=== PATIENT | female | born 1955 ===

== ENCOUNTER 2016-06-07 11:50 | Observation (INO) | payer MEDICAID ==
[2016-06-07 11:50] VITALS: BMI 34.0
[2016-06-07] MEDS ORDERED: Sodium Chloride 0.9% 1,000 ML IV STA (12:25)
--- NOTE | 2016-06-07 12:54 | RAD ---
HISTORY: R leg numbness COMPARISON: 03/17/2016 FINDINGS: LUNGS: No active pulmonary disease. PLEURA: No significant pleural effusion identified, no pneumothorax apparent. CARDIOVASCULAR: Normal. OSSEOUS STRUCTURES: No significant abnormalities. VISUALIZED UPPER ABDOMEN: Normal. OTHER FINDINGS: None. IMPRESSION: No active disease.
[2016-06-07 13:15] LABS: BASO % 0.4 % (0.0-2.0); EOS # 0.1 K/uL (0.0-0.7); EOS % 0.5 % (0.0-4.0); HEMATOCRIT 33.5 % (34.0-47.0); LYMPH % 24.2 % (20.0-40.0); MEAN CORPUSCULAR HEMOGLOBIN 31.1 pg (27.0-31.0); MEAN CORPUSCULAR HGB CONC 32.7 g/dL (33.0-37.0); MEAN PLATELET VOLUME 9.6 fl (7.2-11.7); MONO % 8.4 % (0.0-10.0); NEUT # 8.2 K/uL (1.8-7.0); NEUT % 66.5 % (50.0-75.0); NRBC % 0.1 % (0.0-0.0); RED CELL DISTRIBUTION WIDTH 16.9 % (11.5-14.5); WHITE BLOOD COUNT 12.3 K/uL (4.8-10.8)
[2016-06-07 13:22] LABS: BILIRUBIN,TOTAL 0.3 mg/dl (0.2-1.3); CALCIUM 9.1 mg/dL (8.4-10.2); POTASSIUM 3.7 MMOL/L (3.6-5.0)
[2016-06-07 13:31] LABS: PARTIAL THROMBOPLASTIN TIME 24.9 SECONDS (23.3-32.5)
[2016-06-07 13:33] LABS: TROPONIN I 0.081 ng/mL (0.00-0.120)
--- NOTE | 2016-06-07 13:42 | CT ---
PROCEDURE: CT HEAD WITHOUT CONTRAST. HISTORY: R leg numbness x12+hrs COMPARISON: Images from noncontrast head CT performed 08/08/10 TECHNIQUE: Axial computed tomography images were obtained through the head/brain without intravenous contrast. Radiation dose: Total exam DLP = 1165.92 mGy-cm. FINDINGS: HEMORRHAGE: No intracranial hemorrhage. BRAIN: Diffuse atrophy with prominence of the ventricles and sulci noted. No mass effect or edema. Bilateral regions of encephalomalacia re-identified involving frontal, temporal, and parietal lobes.Please note that MRI with diffusion imaging is more sensitive in the detection of acute ischemic event. VENTRICLES: No hydrocephalus. CALVARIUM: Unremarkable. PARANASAL SINUSES: Unremarkable as visualized. No significant inflammatory changes. MASTOID AIR CELLS: Unremarkable as visualized. No inflammatory changes. OTHER FINDINGS: None. IMPRESSION: Bilateral regions of encephalomalacia re-identified involving frontal, temporal, and parietal lobes.
--- NOTE | 2016-06-07 14:19 | US ---
HISTORY: RUQ pain COMPARISON: CT abdomen and pelvis with oral and IV contrast performed 03/17/16, abdominal ultrasound performed 03/07/16 TECHNIQUE: Sonographic evaluation of the abdomen. FINDINGS: LIVER: Measures 15.8 cm in sagittal dimension. Echogenic liver may be seen in setting of hepatic parenchymal disease or fatty infiltration. No focal hepatic mass identified. The main portal vein appears patent with normal directional flow. No intrahepatic bile duct dilatation. GALLBLADDER: No gallstones. No gallbladder wall thickening. Negative sonographic Concepcion's sign as assessed by the fur finisher. COMMON BILE DUCT: Measures 4 mm. PANCREAS: Not well visualized. RIGHT KIDNEY: Measures 9.7 x 4.2 x 4.2 cm. Cortical thinning. No obstructing calculus or hydronephrosis evident. LEFT KIDNEY: Measures 9.3 x 4.4 x 3.8 cm. Cortical thinning. No obstructing calculus or hydronephrosis evident. SPLEEN: The spleen is not identified, by history surgically removed. AORTA: Limited views appear unremarkable. IVC: Limited views appear unremarkable. OTHER FINDINGS: None. IMPRESSION: Mild echogenic liver may be seen in setting of hepatic parenchymal disease or fatty infiltration. Nonvisualization of the spleen. By history, status post splenectomy. Bilateral renal cortical thinning.
--- NOTE | 2016-06-07 15:08 | ED PDOC ---
HPI:STROKE - Time Time: 12:20 - Historian Historian: Patient, Family - Chief Complaint Chief Complaint: Numbness - Onset Date: 06/06/16 Time: 20:00 (approximate) - Timing Timing: Currently Symptomatic - Location Locate right:: Lower extremity - Radiation Radiation: Back - Severity of pain Maximum severity:: Mild - Exacerbated by Exacerbated by:: Nothing - Relieved by Relieved by:: Nothing - TPA Positive for Contraindication: Yes Reason tPA is not being Administered: >4hrs since onset of symptoms, NIHSS <4 - Notes: Notes:: 60yo female hx multiple CVAs, MIs, rheumatoid arthritis, presents c/o right leg numbness since last night, now >12hrs earlier. Denies weakness but states cannot walk due to leg issue, normally uses walker and can ambulate with assistance. Denies headache, chest pain, change in speech/vision or coordination. Denies weakness or numbness to face or arms. States adherence to medications. NIHSS Stroke Scale - Date/Time Evaluation Performed When Was NIHSS Performed: Baseline - How Severe is the Stroke Level of Consciousness: 0=Alert LOC to Questions: 0=Both comments correct LOC to commands: 0=Obeys both correctly Best Gaze: 0=Normal Visual: 0=No visual loss Facial: 0=Normal Motor Arm - Left: 0=No drift Motor Arm - Right: 0=No drift Motor Leg - Left: 0=No drift Motor Leg - Right: 0=No drift Limb Ataxia: 0=Absent Sensory: 1=Mild to moderate loss Best Language: 0=No aphasia Dysarthia: 0=Normal articulation Extinction & Inattention (Neglect): 0=Normal, no object Score: 1 rTPA Inclusion/Exclusion - Refusal of Treatment Patient Refused Treatment: No - Inclusion Criteria for Altepase Patient is 18 years or Older: Yes The Clinical Diagnosis of Ischemic Stroke That is Causing a Potentially Disabling Neurological Deficit: Yes Time of Onset is Well Established to be Less Than 270 Minute Before Treatment Would Begin: No Risk/Benefit Discussed With Patient/Family Member Present: Yes - Warning to TPA With Conditions Following Conditions Weighed Against Anticipated Benefit: Yes Condition: Stroke Serevity Too Mild Past Medical History Reviewed: Historical Data, Nursing Documentation, Vital Signs Vital Signs: Last Vital Signs Temp 97.6 F 06/07/16 12:04 Pulse 94 H 06/07/16 12:50 Resp 19 06/07/16 12:50 BP 99/61 L 06/07/16 12:50 Pulse Ox 96 06/07/16 12:50 - Medical History PMH: Anxiety, Arthritis, Asthma, CAD, CHF, COPD, CVA (x3), Depression, Deep Vein Thrombosis, HTN, Hypercholesterolemia, Osteoporosis, Peripheral Edema, Rheumatoid Arthritis, Seizures, Sleep Apnea (CPAP at 4), TIA Denies: HIV, Chronic Kidney Disease - Surgical History Surgical History: Coronary Stent, (x2) - Family History Family History: States: Unknown Family Hx - Living Arrangements Living Arrangements: With Family - Social History Current smoker - smoking cessation education provided: No Alcohol: None - Home Medications Home Medications: Ambulatory Orders Medication Instructions Recorded Folic Acid 1 mg PO DAILY #0 tab 07/19/15 Hydroxychloroquine Sulfate 200 mg PO BID #0 tablet 07/19/15 [Plaquenil] Losartan Potassium 25 mg PO DAILY #0 tablet 07/19/15 metOLazone [Zaroxolyn] 2.5 mg PO DAILY #0 tab 07/19/15 Atorvastatin [Lipitor] 10 mg PO HS 12/08/15 DULoxetine [Cymbalta] 30 mg PO DAILY 12/08/15 Escitalopram [Lexapro] 15 mg PO HS 12/08/15 predniSONE [predniSONE Tab] 5 mg PO DAILY 12/08/15 rOPINIRole [Requip] 1 mg PO HS 12/08/15 traZODone [Desyrel] 50 mg PO HS 12/08/15 Famotidine [Pepcid] 20 mg PO BID #20 tab 12/24/15 Albuterol 0.042% [Albuterol 0.042% 3 ml IH Q6H PRN 02/08/16 Inhal Lotus (1.25mg/3ml) UD] Aspirin [Ecotrin] 81 mg PO DAILY 02/08/16 Mirtazapine [Remeron] 30 mg PO HS 02/08/16 Ondansetron [Zofran Tab] 8 mg PO TID PRN 02/08/16 Atenolol [Tenormin] 25 mg PO DAILY tab 03/15/16 Simethicone [Mylicon Chew Tab] 80 mg PO TID chew 03/15/16 amLODIPine [Norvasc] 5 mg PO DAILY tab 03/15/16 ALPRAZolam [Xanax] 0.25 mg PO HS 03/17/16 Acetaminophen with Codeine 1 tab PO Q6H PRN 03/17/16 [Tylenol with Codeine #3 Tablet] Albuterol HFA [Ventolin HFA 90 2 puff IH Q4H PRN 03/17/16 mcg/actuation (8 g)] Ketotifen Fumarate [Zaditor] 1 drop BOTHEYES Q12H PRN 03/17/16 Lidocaine 5% [Lidoderm] 1 ea TD DAILY patch 03/21/16 - Allergies Allergies/Adverse Reactions: Allergies Allergy/AdvReac Type Severity Reaction Status Date / Time No Known Allergies Allergy Verified 03/17/16 12:50 Review of Systems ROS Statement: Except As Marked, All Systems Reviewed And Found Negative Constitutional: Negative for: Fever, Chills Cardiovascular: Negative for: Chest Pain, Palpitations Respiratory: Negative for: Cough, Shortness of Breath Gastrointestinal: Positive for: Nausea, Vomiting, Abdominal Pain Genitourinary Female: Negative for: Dysuria, Frequency Musculoskeletal: Negative for: Neck Pain, Shoulder Pain Skin: Negative for: Rash, Lesions, Jaundice Neurological: Positive for: Weakness, Numbness, Dizziness. Negative for: Confusion, Seizures, Headache Physical Exam - Reviewed Nursing Documentation Reviewed: Yes Vital Signs Reviewed: Yes - Physical Exam Appears: Positive for: Well, Non-toxic, No Acute Distress Head Exam: Positive for: ATRAUMATIC, NORMAL INSPECTION, NORMOCEPHALIC Skin: Positive for: Normal Color, Warm, DRY Eye Exam: Positive for: EOMI, Normal appearance, PERRL ENT: Positive for: Normal ENT Inspection Neck: Positive for: Normal, Painless ROM Cardiovascular/Chest: Positive for: Regular Rate, Rhythm Respiratory: Positive for: Normal Breath Sounds. Negative for: Wheezing, Respiratory Distress Gastrointestinal/Abdominal: Positive for: Bowel Sounds, Soft, Tenderness (mild epigastric tenderness). Negative for: Guarding, Rebound Back: Positive for: Normal Inspection Extremity: Positive for: Normal ROM Neurologic/Psych: Positive for: Alert, Oriented, Motor/Sensory Deficits (+R leg objective loss sensation; +5/5 motor all ext but slow\), Cerebellar Tests ( intact but slow), Gait (unable to assess due to deficit). Negative for: Facial Droop - Laboratory Results Result Diagrams: 06/07/16 12:50 03/15/17 12:50 - ECG O2 Sat by Pulse Oximetry: 96 Medical Decision Making Medical Decision Making: Not code stroke candidate due to time elapsed of symptoms. CT brain obtained. Labs reviewed.
--- NOTE | 2016-06-07 16:26 | CP.PCM.HP ---
History of Present Illness - History of Present Illness History of Present Illness: CC: Numbness L leg, sensation deficit HPI: This is a 60 year old female with multiple medical problems, hx respiratory insufficiency 2/2 COPD, OLIVIA, severe PAH with connective tissue dz, SLE, RA, s/p splenectomy with chronic thrombocytopenia, hx CVA, CAD, presents today with a 12 hour history of what patient describes as numbness, however upon further evaluation, is moderate constant loss of sensation in the L leg, no associated with any symtpoms, and not made better or worse by any factors. Patient was seen by patient's neurologist Dr. Grier in ER, discussed, consult appreciated and followed. Patient will get MRI and monitored overnight on observation for any worsening of symptoms. vitals also stable. Will monitor on telemetry. ROS: per HPI, all other systems reviewed and negative by me PMD: Dr. 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, HTN, Sleep apnea using CPAP , asthmaCOPD on home oxygen (not using), dyslipidemia rheumatoid arthritis, SLE, osteoporosis, thrombocytopenia Medications; see med rec Surgeries ; Carpal tunnel surgery, C- sections x 2, bunyon removal,splecectomy Family history ; Mother had HTN, DM and CABG Father had CVA HTN and DM Social history ; Lives in [place] with grandchildren, does not smoke , does not drink , does not use any alcohol, used to work in leather factory EXAM: Vitals stable and reviewed GEN: WDWN, alert, cooperative HEENT: NCAT, PERRL, EOMI Neck: supple, no lymphadenopathy CARDIO: +S1S2, RRR, NO M/R/G LUNG: CTAB, NO W/R/R ABD: soft, NT, ND, no masses, no HSM EXT: no edema, pedal pulses Neuro: AAOx3, Strength equal, bilateral UE/LE, sensation diminished L LE Psych: normal mood, normal affect LABS as below and reviewed 06/07/16 12:50 06/07/16 12:50 06/07/16 12:25 Sodium Chloride 0.9% 1,000 ml IV 100 mls/hr 06/07/16 16:28 Albuterol 0.042% [Albuterol 0.042% Inhal Lotus (1.25mg/3ml) UD] DOSE mg IH Q6H PRN Diclofenac Sodium [Voltaren] 1 appl TOP TID PRN Ketotifen Fumarate [Zaditor] 1 drop BOTHEYES Q12H PRN 06/07/16 17:00 Diclofenac Sodium [Voltaren] 75 mg PO BID Hydroxychloroquine Sulfate [Plaquenil] 200 mg PO BID 06/07/16 22:00 Atorvastatin [Lipitor] 10 mg PO HS Escitalopram [Lexapro] 15 mg PO HS Mirtazapine [Remeron] 30 mg PO HS 06/08/16 09:00 Aspirin [Ecotrin] 81 mg PO DAILY Clopidogrel [Plavix] 75 mg PO DAILY Folic Acid 1 mg PO DAILY Leflunomide [Arava] 20 mg PO DAILY Losartan [Cozaar] 25 mg PO DAILY Mesalamine [Apriso] 4 cap PO DAILY Pantoprazole [Protonix EC Tab] 40 mg PO DAILY amLODIPine [Norvasc] 5 mg PO DAILY 06/12/16 16:28 Risedronate Sodium [Actonel] 35 mg PO MO RADS CT Head: Bilateral regions of encephalomalacia re-identified involving frontal, temporal, and parietal lobes. Abd US: mild echogenic liver may be seen in setting of hepatic parenchymal disease or fatty infiltration. Nonvisualization of the spleen, By history s/p splenectomy. Bilateral renal cortical thickening. CXR no active disease ASSESSMENT AND PLAN: This is a 60 year old female with multiple medical problems, hx respiratory insufficiency 2/2 COPD, OLIVIA, severe PAH with connective tissue dz, SLE, RA, s/p splenectomy with chronic thrombocytopenia, hx CVA, CAD, recently discharged 2 days ago after being admitted for respiratory insufficiency and enterocolitis. Colonoscopy 03/13/16 showed ulcers, biopsies showed viral inclusions, as well as diverticulosis. Patient was discharged to [facility], and this morning had 3 large BRBPR, which she stated filled the whole toilet. Pt denies abdominal pain, nausea, vomiting, complains of some diarrhea. She states she feels weak and slightly lightheaded. GI consulted in ER, H/H stable, vitals also stable. New Numbness in L Leg, sensation deficit Neurology consult with Dr. Grier, patient's neurologist discussed patient MRI, eval for acute ischemic event if no event, may discharge patient home and follow up as an outpatient Severe PAH with connective tissue disease CAD, Hx CVA stable cont amlodipine, cozaar, lipitor, ASA, plavix Depression, Anxiety stable continue lexapro, remeron Thrombocytopenia s/p Splenectomy RA Sees Dr. Chávez Hydroxychloroquine Sulfate [Plaquenil] 200 mg PO BID Folic Acid 1 mg PO DAILY Leflunomide [Arava] 20 mg PO DAILY Mesalamine [Apriso] 4 cap PO DAILY Risedronate Sodium [Actonel] 35 mg PO MO Anemia chronic Present on Admission - Present on Admission Any Indicators Present on Admission: No Past Patient History - Infectious Disease Hx of Infectious Diseases: None - Tetanus Immunizations Tetanus Immunization: Unknown - Past Medical History & Family History Past Medical History?: Yes - Past Social History Alcohol: None - CARDIAC Hx Congestive Heart Failure: Yes Hx Hypercholesterolemia: Yes Hx Hypertension: Yes Hx Peripheral Edema: Yes - PULMONARY Hx Asthma: Yes Hx Chronic Obstructive Pulmonary Disease (COPD): Yes Hx Sleep Apnea: Yes (CPAP at 4) - NEUROLOGICAL Hx Seizures: Yes Hx Transient Ischemic Attacks (TIA): Yes - HEENT Hx HEENT Problems: No - RENAL Hx Chronic Kidney Disease: No - ENDOCRINE/METABOLIC Hx Endocrine Disorders: No Hx Systemic Lupus Erythematosus: Yes - HEMATOLOGICAL/ONCOLOGICAL Hx Human Immunodeficiency Virus (HIV): No - INTEGUMENTARY Hx Dermatological Problems: No - MUSCULOSKELETAL/RHEUMATOLOGICAL Hx Arthritis: Yes Hx Osteoporosis: Yes Hx Rheumatoid Arthritis: Yes - GASTROINTESTINAL Hx Gastrointestinal Disorders: Yes Hx Ulcer: Yes - GENITOURINARY/GYNECOLOGICAL Hx Genitourinary Disorders: Yes Hx Incontinence: Yes - PSYCHIATRIC Hx Anxiety: Yes Hx Depression: Yes - SURGICAL HISTORY Hx Coronary Stent: Yes - ANESTHESIA Hx Anesthesia: Yes Hx Anesthesia Reactions: No Hx Malignant Hyperthermia: No Meds Allergies/Adverse Reactions: Allergies Allergy/AdvReac Type Severity Reaction Status Date / Time No Known Allergies Allergy Verified 03/17/16 12:50 Results - Vital Signs Recent Vital Signs: Last Vital Signs Temp 97.6 F 06/07/16 12:04 Pulse 94 H 06/07/16 12:50 Resp 19 06/07/16 12:50 BP 99/61 L 06/07/16 12:50 Pulse Ox 96 06/07/16 15:10 - Labs Result Diagrams: 06/07/16 12:50 06/07/16 12:50
[2016-06-07] MEDS ORDERED: KETOTIFEN FUMARATE BOTHEYES PRN (16:28)
[2016-06-07] MEDS ORDERED: Albuterol 0.042% Inhal Sol (1.25 mg/3 mL) UD IH PRN (16:28)
[2016-06-07] MEDS ORDERED: Patient's Own Med (Diclofenac Sodium [Voltaren] 1 APPL) TOP PRN (16:28)
--- NOTE | 2016-06-07 17:09 | CON ---
DATE: 06/07/2016 REASON FOR CONSULTATION: Possible stroke. CHIEF COMPLAINT: The patient woke up with right leg weakness. From neurological point of view, I wa s called in to evaluate her for further management. HISTORY OF PRESENT ILLNESS: The patient is a 60-year-old right-handed female who is known t o me for many years, been under my treatment for her lumbosacral stenosis, peripheral neuropathy, TIA and sleep apnea, presenting with woke up with right leg weakness and heavy, inability to walk straig ht. The symptoms were persistent and that made her decide to come to the hospital for further evalua tion. PAST MEDICAL HISTORY: Gastritis, asthma, depression, anxiety, electrolyte imbalance, renal insuffici ency, thrombocytopenia, rheumatoid arthritis, pulmonary hypertension, stroke. ALLERGIES: No known allergies. MEDICATIONS: Multiple medications. At this time, she does not bring any medications with her. PHYSICAL EXAMINATION: VITAL SIGNS: Blood pressure 91/51, mean arterial pressure 64, respiratory rate 16, temperature afebr ile. NECK: Supple. No carotid bruit. HEART: Sounds regular. CHEST: Fair air entry. EXTREMITIES: No edema in legs. NEUROLOGIC EXAMINATION: MENTAL STATUS: She is awake, alert, oriented to person, place, and time. Speech is clear. Naming, repetition, fluency, comprehension all within normal. CRANIAL NERVE: Visual field intact. Pupils react to light. Extraocular movement normal. No nystag mus, no facial sensory deficit, no facial asymmetry. Hearing is normal. Tongue is midline. Good ga g. MOTOR: On outstretched hand with eyes closed, no drift noted. Power is symmetric on either side. L ower extremities: She was able to lift both lower extremities against gravity. DEEP TENDON REFLEXES: Absent. Plantars are downgoing. COORDINATION: Mild [id number] dysmetria noted. CONCLUSION: Upon reviewing her history and neurological examination, the patient is presenting with woke up with with right leg weakness, probably secondary to possible left anterior cerebral artery i schemic process considering her significant risk factors of hypertension, obesity, collagen vascular disease and previous transient ischemic attack with obstructive sleep apnea. WORKUP: CT of the head reported as negative for a bleed except significant atrophy. BLOOD WORKUP: WBC 12.3, kpnhrbdfco05.9, hematocrit 33.5, platelet 219. PT 10.3, INR 0.99, PTT 24.9. Sodium 144, potassium 3.7, chloride 100, bicarbonate 32, BUN 33, creatinine 1.6. Triglyceride 200, cholesterol 186, LDL 69, HDL 52. RECOMMENDATIONS: 1. Continue telemetry. 2. MRI of the brain to rule out any acute ischemic process. If no structural cause for her leg weak ness, the patient can be discharged tomorrow and she can follow up with me as an outpatient. Cresencio Grier MD cc: [id number] TT: 06/07/2016 17:09:23 Confirmation # [id number] Dictation # [id number] tn
[2016-06-08 05:16] LABS: RBC URINE 5 /hpf (0-3); URINE BACTERIA RARE (<OCC); URINE BILIRUBIN NEGATIVE (NEGATIVE); URINE BLOOD NEGATIVE (NEGATIVE); URINE COLOR YELLOW (YELLOW); URINE GLUCOSE (UA) NEG (Normal); URINE KETONE NEGATIVE (NEGATIVE); URINE LEUKOCYTE ESTERASE TRACE Leu/uL (Negative); URINE PROTEIN NEGATIVE (NEGATIVE); URINE UROBILINOGEN 0.2-1.0 mg/dL (0.2-1.0); WBC URINE 1 /hpf (0-5)
[2016-06-08 07:02] LABS: HEMATOCRIT 31.2 % (34.0-47.0); MEAN CELL VOLUME 97.7 fl (81.0-99.0); MEAN CORPUSCULAR HGB CONC 31.7 g/dL (33.0-37.0); RED CELL DISTRIBUTION WIDTH 16.9 % (11.5-14.5); WHITE BLOOD COUNT 11.8 K/uL (4.8-10.8)
[2016-06-08 07:56] VITALS: O2SAT 98
[2016-06-08 08:14] LABS: BLOOD UREA NITROGEN 25 mg/dl (7-17); CALCIUM 8.2 mg/dL (8.4-10.2); CARBON DIOXIDE 28 mmol/L (22-30); CHLORIDE 103 mmol/L (98-107); GFR AFRICAN-AMERICAN > 60; GLUCOSE,RANDOM 84 mg/dL (65-105); POTASSIUM 3.4 MMOL/L (3.6-5.0); SODIUM 143 mmol/l (132-148)
[2016-06-08] MEDS ORDERED: Pantoprazole 40 mg EC Tab PO SCH (09:00)
[2016-06-08] MEDS ORDERED: Enoxaparin 40 mg Syringe SC SCH (09:00)
[2016-06-08] MEDS ORDERED: MESALAMINE PO SCH (09:00)
[2016-06-08] MEDS ORDERED: Potassium Chloride 20 mEq ER Tab PO ONE (09:40)
--- NOTE | 2016-06-08 09:40 | MRI ---
PROCEDURE: MRI BRAIN WITHOUT CONTRAST HISTORY: STROKE COMPARISON: Noncontrast head CT from 06/07/2016 TECHNIQUE: Multiplanar, multisequence MR images of the brain were obtained without intravenous contrast enhancement. FINDINGS: HEMORRHAGE: None DWI: There is focal restricted diffusion in the left paramedian frontal cortex. BRAIN PARENCHYMA: There is cystic encephalomalacia and gliosis in the right posterior frontal lobe, right posterior parietal lobe, left paramedian posterior frontal lobe, and left parietal and posterior temporal lobes. There are severe chronic microangiopathic changes. VENTRICLES: There is mild age-related global parenchymal volume loss and proportionate enlargement of the ventricles and cortical sulci. CRANIUM: There is normal bone marrow signal pattern. ORBITS: Within normal limits. PARANASAL SINUSES/MASTOIDS: There are trace mastoid effusions. There is mild mucosal thickening in the paranasal sinuses. VASCULAR SYSTEM: There are normal signal voids in the larger intracranial arteries. OTHER FINDINGS: None. IMPRESSION: 1. Small acute cortical infarction in the left paramedian frontal lobe. 2. Multifocal cystic encephalomalacia and gliosis in bilateral frontal and parietal lobes and left posterior temporal lobe, sequela of remote TALAT and MCA territory infarctions. 3. Severe chronic microangiopathic changes and mild age-related global parenchymal volume loss. A preliminary report was provided by [facility] services.
--- NOTE | 2016-06-08 10:56 | CP.PCM.DIS ---
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 Status: Chronic (6) Rheumatoid arthritis Status: Chronic (7) Acute CVA (cerebrovascular accident) Status: Acute Hospital Course - Lab Results Lab Results: Most Recent Lab Values WBC 11.8 K/uL (4.8-10.8) H 06/08/16 05:55 RBC 3.20 Mil/uL (3.80-5.20) L 06/08/16 05:55 Hgb 9.9 g/dL (12.0-16.0) L 06/08/16 05:55 Hct 31.2 % (34.0-47.0) L 06/08/16 05:55 MCV 97.7 fl (81.0-99.0) D 06/08/16 05:55 MCH 31.0 pg (27.0-31.0) 06/08/16 05:55 MCHC 31.7 g/dL (33.0-37.0) L 06/08/16 05:55 RDW 16.9 % (11.5-14.5) H 06/08/16 05:55 Plt Count 183 K/uL (130-400) 06/08/16 05:55 MPV 9.6 fl (7.2-11.7) 06/07/16 12:50 Neut % (Auto) 66.5 % (50.0-75.0) 06/07/16 12:50 Lymph % (Auto) 24.2 % (20.0-40.0) 06/07/16 12:50 [place] % (Auto) 8.4 % (0.0-10.0) 06/07/16 12:50 Eos % (Auto) 0.5 % (0.0-4.0) 06/07/16 12:50 Baso % (Auto) 0.4 % (0.0-2.0) 06/07/16 12:50 Neut # 8.2 K/uL (1.8-7.0) H 06/07/16 12:50 Lymph # 3.0 K/uL (1.0-4.3) 06/07/16 12:50 Kidder # 1.0 K/uL (0.0-0.8) H 06/07/16 12:50 Eos # 0.1 K/uL (0.0-0.7) 06/07/16 12:50 Baso # 0.0 K/uL (0.0-0.2) 06/07/16 12:50 PT 10.3 SECONDS (9.6-11.2) 06/07/16 12:50 INR 0.99 (0.92-1.08) 06/07/16 12:50 APTT 24.9 SECONDS (23.3-32.5) 06/07/16 12:50 Sodium 143 mmol/l (132-148) 06/08/16 05:55 Potassium 3.4 MMOL/L (3.6-5.0) L 06/08/16 05:55 Chloride 103 mmol/L (98-107) 06/08/16 05:55 Carbon Dioxide 28 mmol/L (22-30) 06/08/16 05:55 Anion Gap 15 (10-20) 06/08/16 05:55 BUN 25 mg/dl (7-17) H 06/08/16 05:55 Creatinine 1.1 mg/dL (0.7-1.2) 06/08/16 05:55 Est GFR ( Amer) > 60 06/08/16 05:55 Est GFR (Non-Af Amer) 50 06/08/16 05:55 POC Glucose (mg/dL) 82 mg/dL (65-110) 06/08/16 05:26 Random Glucose 84 mg/dL (65-105) 06/08/16 05:55 Hemoglobin A1c 5.7 % (4.2-6.5) 06/07/16 12:50 Calcium 8.2 mg/dL (8.4-10.2) L 06/08/16 05:55 Total Bilirubin 0.3 mg/dl (0.2-1.3) 06/07/16 12:50 AST 31 U/L (14-36) 06/07/16 12:50 ALT 26 U/L (9-52) 06/07/16 12:50 Alkaline Phosphatase 97 U/L (38-126) 06/07/16 12:50 Troponin I 0.0810 ng/mL (0.00-0.120) 06/07/16 12:50 Total Protein 7.0 G/DL (6.3-8.2) 06/07/16 12:50 Albumin 3.5 g/dL (3.5-5.0) D 06/07/16 12:50 Globulin 3.5 gm/dL (2.2-3.9) 06/07/16 12:50 Albumin/Globulin Ratio 1.0 (1.0-2.1) 06/07/16 12:50 Triglycerides 200 mg/DL (0-149) H 06/07/16 12:50 Cholesterol 186 mg/dL (0-199) 06/07/16 12:50 LDL Cholesterol Direct 69 mg/dL (0-129) 06/07/16 12:50 HDL Cholesterol 52 MG/DL (30-70) 06/07/16 12:50 Urine Color Yellow (YELLOW) 06/08/16 04:30 Urine Clarity Clear (Clear) 06/08/16 04:30 Urine pH 5.0 (5.0-8.0) 06/08/16 04:30 Ur Specific [place] 1.012 (1.003-1.030) 06/08/16 04:30 Urine Protein Negative mg/dL (NEGATIVE) 06/08/16 04:30 Urine Glucose (UA) Neg mg/dL (Normal) 06/08/16 04:30 Urine Ketones Negative mg/dL (NEGATIVE) 06/08/16 04:30 Urine Blood Negative (NEGATIVE) 06/08/16 04:30 Urine Nitrate Negative (NEGATIVE) 06/08/16 04:30 Urine Bilirubin Negative (NEGATIVE) 06/08/16 04:30 Urine Urobilinogen 0.2-1.0 mg/dL (0.2-1.0) 06/08/16 04:30 Ur Leukocyte Esterase Trace Marcelo/uL (Negative) 06/08/16 04:30 Urine RBC (Auto) 5 /hpf (0-3) H 06/08/16 04:30 Urine Microscopic WBC 1 /hpf (0-5) 06/08/16 04:30 Ur Squamous Epith Cells 2 /hpf (0-5) 06/08/16 04:30 Urine Bacteria Rare (<OCC) 06/08/16 04:30 Hyaline Casts 3-5 /hpf (0-2) H 06/08/16 04:30 Blood Type B POSITIVE 06/07/16 12:50 Antibody Screen Negative 06/07/16 12:50 BBK History Checked Patient has bt 06/07/16 12:50 - Hospital Course Hospital Course: 60 year old female with multiple medical problems, hx respiratory insufficiency 2/2 COPD, OLIVIA, severe PAH with connective tissue dz, SLE, RA, s/p splenectomy with chronic thrombocytopenia, hx CVA, CAD, presents today with a 12 hour history of what patient describes as numbness, however upon further evaluation, is moderate constant loss of sensation in the L leg, no associated with any symtpoms, and not made better or worse by any factors. Patient was seen by patient's neurologist Dr. Grier in ER, discussed, consult appreciated and followed. Patient will get MRI and monitored overnight on observation for any worsening of symptoms. vitals also stable. Will monitor on telemetry. MRI BRAIN : SMALL ACUTE CORTICAL INFARCTION IN THE L PARAMEDIAN FRONTAL LOBE. MULTIFOCAL CYSTIC ENCEPHALOMALACIA AND GLIOSIS IN BILATERAL FRONTAL AND PARIETAL LOBES AND LEFT POSTERIOR TEMPORAL LOBE, SEQUELA OF REMOTE TALAT AND MCA TERRITORY INFARCTIONS. SEVERE CHRONIC MICROANGIOPATHIC CHANGES AND MILD AGE RELATED GLOBAL PARENCHYMAL VOLUME LOSS. Pt was seen by PT and OT, ambulating well, recommendation is to be discharged home. Discussed with Dr. Grier, patient stable to be discharged home with home medications. Pt is on ASA and Plavix, and statin for CVA. Follow up with PCP and Neurology in one week. ROS: per HPI, all other systems reviewed and negative by me PMD: Dr. 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, HTN, Sleep apnea using CPAP , asthmaCOPD on home oxygen (not using), dyslipidemia rheumatoid arthritis, SLE, osteoporosis, thrombocytopenia Medications; see med rec Surgeries ; Carpal tunnel surgery, C- sections x 2, bunyon removal,splecectomy Family history ; Mother had HTN, DM and CABG Father had CVA HTN and DM Social history ; Lives in [place] with grandchildren, does not smoke , does not drink , does not use any alcohol, used to work in [employer] [place] Head: Bilateral regions of encephalomalacia re-identified involving frontal, temporal, and parietal lobes. Abd US: mild echogenic liver may be seen in setting of hepatic parenchymal disease or fatty infiltration. Nonvisualization of the spleen, By history s/p splenectomy. Bilateral renal cortical thickening. CXR no active disease MRI BRAIN : SMALL ACUTE CORTICAL INFARCTION IN THE L PARAMEDIAN FRONTAL LOBE. MULTIFOCAL CYSTIC ENCEPHALOMALACIA AND GLIOSIS IN BILATERAL FRONTAL AND PARIETAL LOBES AND LEFT POSTERIOR TEMPORAL LOBE, SEQUELA OF REMOTE TALAT AND MCA TERRITORY INFARCTIONS. SEVERE CHRONIC MICROANGIOPATHIC CHANGES AND MILD AGE RELATED GLOBAL PARENCHYMAL VOLUME LOSS. ASSESSMENT AND PLAN: This is a 60 year old female with multiple medical problems, hx respiratory insufficiency 2/2 COPD, OLIVIA, severe PAH with connective tissue dz, SLE, RA, s/p splenectomy with chronic thrombocytopenia, hx CVA, CAD, recently discharged 2 days ago after being admitted for respiratory insufficiency and enterocolitis. Colonoscopy 03/13/16 showed ulcers, biopsies showed viral inclusions, as well as diverticulosis. Patient was discharged to [facility], and this morning had 3 large BRBPR, which she stated filled the whole toilet. Pt denies abdominal pain, nausea, vomiting, complains of some diarrhea. She states she feels weak and slightly lightheaded. GI consulted in ER, H/H stable, vitals also stable. New Numbness in L Leg, sensation deficit Neurology consult with Dr. Grier, patient's neurologist discussed patient MRI, eval for acute ischemic event if no event, may discharge patient home and follow up as an outpatient Severe PAH with connective tissue disease CAD, Hx CVA stable cont amlodipine, cozaar, lipitor, ASA, plavix Depression, Anxiety stable continue lexapro, remeron Thrombocytopenia s/p Splenectomy RA Sees Dr. Chávez Hydroxychloroquine Sulfate [Plaquenil] 200 mg PO BID Folic Acid 1 mg PO DAILY Leflunomide [Arava] 20 mg PO DAILY Mesalamine [Apriso] 4 cap PO DAILY Risedronate Sodium [Actonel] 35 mg PO MO Anemia chronic Discharge Exam - Head Exam Head Exam: ATRAUMATIC, NORMAL INSPECTION, NORMOCEPHALIC - Eye Exam Eye Exam: EOMI, Normal appearance, PERRL Pupil Exam: NORMAL ACCOMODATION - ENT Exam ENT Exam: Mucous Membranes Moist, Normal Oropharynx - Neck Exam Neck exam: Full Rom, Normal Inspection - Respiratory Exam Respiratory Exam: Clear to PA & Lateral, NORMAL BREATHING PATTERN, UNREMARKABLE - Cardiovascular Exam Cardiovascular Exam: RRR, +S1, +S2. absent: Gallop, Rubs - GI/Abdominal Exam GI & Abdominal Exam: Normal Bowel Sounds, Soft. absent: Mass, Organomegaly, Tenderness - Extremities Exam Extremities exam: normal capillary refill, pedal pulses present - Back Exam Back exam: absent: CVA tenderness (L), CVA tenderness (R) - Neurological Exam Neurological exam: Alert, Oriented x3 - Psychiatric Exam Psychiatric exam: Normal Affect, Normal Mood - Skin Skin Exam: Dry, Warm Discharge Plan - Discharge Medications Prescriptions: Risedronate Sodium [Actonel] 35 mg PO MO #30 tablet Albuterol 0.042% [Albuterol 0.042% Inhal Lotus (1.25mg/3ml) UD] 3 ml IH Q6H PRN # 20 neb PRN Reason: Shortness Of Breath Mesalamine [Apriso] 4 cap PO DAILY #30 cap.er.24h Leflunomide [Arava] 20 mg PO DAILY #30 tablet Losartan [Cozaar] 25 mg PO DAILY #30 tab Aspirin [Ecotrin] 81 mg PO DAILY #30 tabec Folic Acid 1 mg PO DAILY #30 tab Escitalopram [Lexapro] 15 mg PO HS #30 tab Atorvastatin [Lipitor] 10 mg PO HS #30 tab amLODIPine [Norvasc] 5 mg PO DAILY #30 tab Hydroxychloroquine Sulfate [Plaquenil] 200 mg PO BID #60 tablet Clopidogrel [Plavix] 75 mg PO DAILY #30 tab Pantoprazole Sodium [Protonix] 40 mg PO DAILY #30 tablet. Mirtazapine [Remeron] 30 mg PO HS #30 tab Diclofenac Sodium [Voltaren] 1 appl TOP TID PRN #100 gel..gram. PRN Reason: Pain, Moderate (4-7) Diclofenac Sodium [Voltaren] 75 mg PO BID #60 ect Ketotifen Fumarate [Zaditor] 1 drop BOTHEYES Q12H PRN 30 Days PRN Reason: itchy eyes - Follow Up Plan Condition: FAIR Disposition: HOME/ ROUTINE Instructions: Ischemic Stroke (DC), Stroke (DC) Additional Instructions: Continue with medications as ordered. Follow up with primary urgent care physician assistant within one week. Follow up with Dr. Marvel one week. Return to ER if condition worsens. Resume low fat low chol, diet. Activity as tolerated. Home exercises as explained.
[2016-06-08 11:51] VITALS: BP 106/73; PULSE 88; RESP 20; TEMP 97.9
--- NOTE | 2016-06-08 18:59 | CARD ---
APPROVED REPORT EKG Measurement Heart [id number] [id number] <Conclusion> Normal sinus rhythm Moderate voltage criteria for LVH, may be normal variant Nonspecific T wave abnormality Abnormal ECG
[2016-06-12] MEDS ORDERED: RISEDRONATE SODIUM 35 MG PO SCH (16:28)
== END 2016-06-08 13:30 | disposition home or self-care (01) ==
LOC: H.ER 11:50 → H.ERHOLD 15:01 → H.TEL 18:19
PROVIDERS: ADMIT Student in an Organized Health Care Education/Training Program; ATTEND Student in an Organized Health Care Education/Training Program
DX: I67.82 Cerebral ischemia (principal); E07.81 Sick-euthyroid syndrome; I27.2 Other secondary pulmonary hypertension; I50.9 Heart failure, unspecified; E78.5 Hyperlipidemia, unspecified; M06.9 Rheumatoid arthritis, unspecified; D64.9 Anemia, unspecified; D69.6 Thrombocytopenia, unspecified; M32.9 Systemic lupus erythematosus, unspecified; G47.33 Obstructive sleep apnea (adult) (pediatric); F41.9 Anxiety disorder, unspecified; I25.10 Atherosclerotic heart disease of native coronary artery without angina pectoris; J44.9 Chronic obstructive pulmonary disease, unspecified; E78.00 Pure hypercholesterolemia, unspecified; J45.909 Unspecified asthma, uncomplicated; M81.0 Age-related osteoporosis without current pathological fracture; K29.70 Gastritis, unspecified, without bleeding; Z95.5 Presence of coronary angioplasty implant and graft; Z86.73 Personal history of transient ischemic attack (TIA), and cerebral infarction without residual deficits; Z99.81 Dependence on supplemental oxygen; Z79.82 Long term (current) use of aspirin

== ENCOUNTER 2016-06-20 10:48 | Observation (INO) | payer MEDICAID ==
[2016-06-20 10:48] VITALS: BMI 34.0
[2016-06-20] MEDS ORDERED: Sodium Chloride 0.9% 1,000 ML IV STA (11:30)
--- NOTE | 2016-06-20 11:38 | ED PDOC ---
HPI: Abdomen Time Seen by Provider: 06/20/16 11:20 Chief Complaint (Nursing): Abdominal Pain Chief Complaint (Provider): vomiting/diarrhea History Per: Patient, Family (60 y/o female h/o Lupus h/o CVA x 4 with recent d/ c from hospital 06/07 after CVA at that time. 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 Has had 3 days of vomiting/watery diarrhea. Denies any fevers/chills. Denies any chest pain. Has h/o Cxn/splenectomy.) Past Medical History Reviewed: Historical Data, Nursing Documentation, Vital Signs Vital Signs: Last Vital Signs Temp 98.4 F 06/20/16 16:29 Pulse 90 06/20/16 16:29 Resp 18 06/20/16 16:29 BP 101/64 06/20/16 16:29 Pulse Ox 97 06/20/16 16:40 - Medical History PMH: Anxiety, Arthritis, Asthma, CAD, CHF, COPD, CVA (x3), Depression, Deep Vein Thrombosis, HTN, Hypercholesterolemia, Osteoporosis, Peripheral Edema, Rheumatoid Arthritis, Seizures, Sleep Apnea (CPAP at 4), TIA Denies: HIV, Chronic Kidney Disease - Surgical History Surgical History: Coronary Stent, (x2) - Family History Family History: States: Unknown Family Hx - Home Medications Home Medications: Ambulatory Orders Medication Instructions Recorded Losartan Potassium 25 mg PO DAILY #0 tablet 07/19/15 Albuterol HFA [Ventolin HFA 90 2 puff IH Q4H PRN 03/17/16 mcg/actuation (8 g)] Albuterol 0.042% [Albuterol 0.042% 3 ml IH Q6H PRN #20 neb 06/08/16 Inhal Lotus (1.25mg/3ml) UD] Aspirin [Ecotrin] 81 mg PO DAILY #30 tabec 06/08/16 Atorvastatin [Lipitor] 10 mg PO HS #30 tab 06/08/16 Clopidogrel [Plavix] 75 mg PO DAILY #30 tab 06/08/16 Diclofenac Sodium [Voltaren] 1 appl TOP TID PRN #100 gel..gram. 06/08/16 Diclofenac Sodium [Voltaren] 75 mg PO BID #60 ect 06/08/16 Escitalopram [Lexapro] 15 mg PO HS #30 tab 06/08/16 Folic Acid 1 mg PO DAILY #30 tab 06/08/16 Hydroxychloroquine Sulfate 200 mg PO BID #60 tablet 06/08/16 [Plaquenil] Ketotifen Fumarate [Zaditor] 1 drop BOTHEYES Q12H PRN 30 Days 06/08/16 Leflunomide [Arava] 20 mg PO DAILY #30 tablet 06/08/16 Losartan [Cozaar] 25 mg PO DAILY #30 tab 06/08/16 Mesalamine [Apriso] 4 cap PO DAILY #30 cap.er.24h 06/08/16 Mirtazapine [Remeron] 30 mg PO HS #30 tab 06/08/16 Pantoprazole Sodium [Protonix] 40 mg PO DAILY #30 tablet.dr 06/08/16 Risedronate Sodium [Actonel] 35 mg PO MO #30 tablet 06/08/16 amLODIPine [Norvasc] 5 mg PO DAILY #30 tab 06/08/16 - Allergies Allergies/Adverse Reactions: Allergies Allergy/AdvReac Type Severity Reaction Status Date / Time No Known Allergies Allergy Verified 03/17/16 12:50 Review of Systems ROS Statement: Except As Marked, All Systems Reviewed And Found Negative Gastrointestinal: Positive for: Vomiting, Diarrhea Physical Exam - Reviewed Nursing Documentation Reviewed: Yes Vital Signs Reviewed: Yes - Physical Exam Appears: Positive for: Well, Non-toxic, No Acute Distress Head Exam: Positive for: ATRAUMATIC, NORMAL INSPECTION, NORMOCEPHALIC Skin: Positive for: Normal Color, Warm, DRY Eye Exam: Positive for: EOMI, Normal appearance, PERRL ENT: Positive for: Normal ENT Inspection Neck: Positive for: Normal, Painless ROM Cardiovascular/Chest: Positive for: Regular Rate, Rhythm Respiratory: Positive for: CNT, Normal Breath Sounds Gastrointestinal/Abdominal: Positive for: Normal Exam, Bowel Sounds, Soft, Tenderness (epigastric tenderness noted on exam.) Back: Positive for: Normal Inspection Extremity: Positive for: Normal ROM Neurologic/Psych: Positive for: Alert, Oriented - Laboratory Results Result Diagrams: 06/20/16 12:35 06/20/16 12:35 - ECG O2 Sat by Pulse Oximetry: 97 - Progress ED Course And Treament: PEPCID 20 MG IV X 1 DOSE ZOFRAN 4MG IV X 1 DOSE NS 1 LITER 250 ML PER HOUR Creatinine 1.6 today. Will adimt for renal insufficiency/hydration. D/w Dr. Marino for admission. Disposition - Clinical Impression Clinical Impression: Acute renal insufficiency, Dehydration - Patient ED Disposition Is Patient to be Admitted: Yes - Disposition Disposition Time: 14:16 Condition: FAIR - Pt Status Changed To: Hospital Disposition Of: Observation
[2016-06-20 12:50] LABS: BASO % 0.2 % (0.0-2.0); EOS % 0.4 % (0.0-4.0); HEMATOCRIT 34.6 % (34.0-47.0); LYMPH # 1.9 K/uL (1.0-4.3); LYMPH % 17.9 % (20.0-40.0); MEAN CELL VOLUME 95.1 fl (81.0-99.0); MEAN CORPUSCULAR HGB CONC 31.5 g/dL (33.0-37.0); MEAN PLATELET VOLUME 9.4 fl (7.2-11.7); MONO # 0.9 K/uL (0.0-0.8); MONO % 8.2 % (0.0-10.0); NEUT # 7.8 K/uL (1.8-7.0); NEUT % 73.3 % (50.0-75.0); NRBC % 0.5 % (0.0-0.0); RED CELL DISTRIBUTION WIDTH 17.3 % (11.5-14.5); WHITE BLOOD COUNT 10.6 K/uL (4.8-10.8)
[2016-06-20 12:59] LABS: ALB/GLOB RATIO 0.9 (1.0-2.1); BILIRUBIN,TOTAL 0.5 mg/dl (0.2-1.3); CALCIUM 9.3 mg/dL (8.4-10.2); POTASSIUM 4.1 MMOL/L (3.6-5.0); TOTAL PROTEIN 8.3 G/DL (6.3-8.2)
[2016-06-20 13:09] LABS: TROPONIN I 0.078 ng/mL (0.00-0.120)
--- NOTE | 2016-06-20 15:06 | CP.PCM.HP ---
History of Present Illness - History of Present Illness History of Present Illness: 60 yo female with history of SLE, PAH, CVA, CAD (2 stent) and COPD brought in by daughter because of epigastric pain since 3 days ago accompanied with mutiple bouts of vomiting and diarrhea. Denied fever and chills. Also denied chest pain or SOB. Present on Admission - Present on Admission Any Indicators Present on Admission: No History of DVT/PE: No History of Uncontrolled Diabetes: No Urinary Catheter: No Decubitus Ulcer Present: No Review of Systems - Review of Systems All systems: reviewed and no additional remarkable complaints except (aside from those mentioned above, 12 point system review were negative by me) Past Patient History - Infectious Disease Hx of Infectious Diseases: None - Tetanus Immunizations Tetanus Immunization: Unknown - Past Medical History & Family History Past Medical History?: Yes - Past Social History Smoking Status: Never Smoked Chewing Tobacco Use: No Cigar Use: No Alcohol: None Drugs: Denies Home Situation {Lives}: With Family - CARDIAC Hx Heart Attack: Yes Hx Hypercholesterolemia: Yes Hx Hypertension: Yes Hx Peripheral Edema: Yes - PULMONARY Hx Asthma: Yes Hx Chronic Obstructive Pulmonary Disease (COPD): Yes Hx Sleep Apnea: Yes (CPAP at 4) - NEUROLOGICAL Hx Seizures: Yes Hx Transient Ischemic Attacks (TIA): Yes - HEENT Hx HEENT Problems: No - RENAL Hx Chronic Kidney Disease: No - ENDOCRINE/METABOLIC Hx Endocrine Disorders: No Hx Systemic Lupus Erythematosus: Yes - HEMATOLOGICAL/ONCOLOGICAL Hx Human Immunodeficiency Virus (HIV): No - INTEGUMENTARY Hx Dermatological Problems: No - MUSCULOSKELETAL/RHEUMATOLOGICAL Hx Arthritis: Yes Hx Osteoporosis: Yes Hx Rheumatoid Arthritis: Yes - GASTROINTESTINAL Hx Gastrointestinal Disorders: Yes Hx Ulcer: Yes - GENITOURINARY/GYNECOLOGICAL Hx Genitourinary Disorders: Yes Hx Incontinence: Yes - PSYCHIATRIC Hx Anxiety: Yes Hx Depression: Yes - SURGICAL HISTORY Hx Coronary Stent: Yes - ANESTHESIA Hx Anesthesia: Yes Hx Anesthesia Reactions: No Hx Malignant Hyperthermia: No Meds Allergies/Adverse Reactions: Allergies Allergy/AdvReac Type Severity Reaction Status Date / Time No Known Allergies Allergy Verified 03/17/16 12:50 Physical Exam - Constitutional Appears: No Acute Distress - Head Exam Head Exam: ATRAUMATIC - Eye Exam Eye Exam: absent: Scleral icterus - ENT Exam ENT Exam: Mucous Membranes Moist - Neck Exam Neck exam: Negative for: Meningismus - Respiratory Exam Respiratory Exam: absent: Rhonchi, Wheezes, Respiratory Distress - Cardiovascular Exam Cardiovascular Exam: REGULAR RHYTHM, +S1, +S2 - GI/Abdominal Exam GI & Abdominal Exam: Soft. absent: Tenderness - Rectal Exam Rectal Exam: Deferred - Extremities Exam Extremities exam: Negative for: calf tenderness - Back Exam Back exam: absent: tenderness - Psychiatric Exam Psychiatric exam: Flat Affect - Skin Skin Exam: Dry, Intact Results - Vital Signs Recent Vital Signs: Last Vital Signs Temp 97 F L 06/20/16 11:23 Pulse 96 H 06/20/16 11:23 Resp 18 06/20/16 11:23 BP 100/65 06/20/16 11:23 Pulse Ox 97 06/20/16 11:39 - Labs Result Diagrams: 06/20/16 12:35 06/20/16 12:35 Assessment & Plan (1) Gastroenteritis Status: Acute Comment: place on observation in med/surg. keep on NPO. IV hydration with NSS 100cc/hr. Zofran 4mg IV q 4hrs prn for nausea/vomiting. Morphine 2mg IV q 4hrs prn for abdominal pain. 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 Duoneb via nebulizer q 4hrs prn for SOB/wheezing. O2 supplement as needed (3) CAD (coronary artery disease) Status: Chronic Priority: Medium Comment: asymptomatic. Plavix, ASA, Lipitor on hold as patient is NPO (4) COPD (chronic obstructive pulmonary disease) Status: Chronic Comment: Asymptomatic. Duoneb via nebulizer q 4hrs prn for SOB/wheezing (5) Rheumatoid arthritis Status: Chronic Comment: Zarava and Voltaren on hold (6) SLE (systemic lupus erythematosus) Status: Chronic Priority: Medium Comment: Plaquenil on hold (7) DVT prophylaxis Status: Acute Comment: venodyne boots while in bed
--- NOTE | 2016-06-20 15:18 | RAD ---
HISTORY: Vomiting, diarrhea and abdominal pain. COMPARISON: 06/07/2016. FINDINGS: LUNGS: No active pulmonary disease. PLEURA: No significant pleural effusion identified, no pneumothorax apparent. CARDIOVASCULAR: Cardiomegaly. No evidence of acute, significant cardiovascular disease. OSSEOUS STRUCTURES: No significant abnormalities. VISUALIZED UPPER ABDOMEN: Normal. OTHER FINDINGS: None. IMPRESSION: No active disease. No significant interval change compared to the prior examination(s).
[2016-06-20] MEDS ORDERED: Albuterol HFA 90 mcg/actuation (8 g) IH PRN (15:30)
[2016-06-20] MEDS ORDERED: KETOTIFEN FUMARATE BOTHEYES PRN (15:30)
[2016-06-20] MEDS ORDERED: Albuterol 0.042% Inhal Sol (1.25 mg/3 mL) UD IH PRN (15:30)
[2016-06-20 16:40] VITALS: O2SAT 97
[2016-06-20] MEDS: Sodium Chloride 0.9% 1,000 ML IV SCH (17:16)
[2016-06-20 21:01] VITALS: RESP 20
[2016-06-21] MEDS: Sodium Chloride 0.9% 1,000 ML IV SCH (02:06)
[2016-06-21 08:10] LABS: BASO % 0.3 % (0.0-2.0); EOS # 0.2 K/uL (0.0-0.7); EOS % 2.1 % (0.0-4.0); LYMPH % 36.6 % (20.0-40.0); MEAN CELL VOLUME 93.9 fl (81.0-99.0); MEAN CORPUSCULAR HEMOGLOBIN 30.2 pg (27.0-31.0); MEAN CORPUSCULAR HGB CONC 32.2 g/dL (33.0-37.0); MEAN PLATELET VOLUME 9.6 fl (7.2-11.7); MONO # 1.3 K/uL (0.0-0.8); MONO % 16.1 % (0.0-10.0); NEUT # 3.7 K/uL (1.8-7.0); NEUT % 44.9 % (50.0-75.0); NRBC % 0.6 % (0.0-0.0); RED CELL DISTRIBUTION WIDTH 17.1 % (11.5-14.5); WHITE BLOOD COUNT 8.3 K/uL (4.8-10.8)
[2016-06-21 08:15] VITALS: BP 93/59; PULSE 70; TEMP 98.4
[2016-06-21 08:23] LABS: BLOOD UREA NITROGEN 27 mg/dl (7-17); CALCIUM 8.2 mg/dL (8.4-10.2); CARBON DIOXIDE 27 mmol/L (22-30); CHLORIDE 108 mmol/L (98-107); GFR AFRICAN-AMERICAN > 60; GLUCOSE,RANDOM 71 mg/dL (65-105); POTASSIUM 3.5 MMOL/L (3.6-5.0); SODIUM 146 mmol/l (132-148)
--- NOTE | 2016-06-21 10:45 | CP.PCM.CON ---
History of Present Illness - History of Present Illness History of Present Illness: GI Consult: Dr. Navarro Pt is a 60F with PMHx significant for CAD s/p stent x 2, CVA, SLE & COPD who presented to [facility] for epigastric pain and vomiting/diarrhea. Pt states that she was constipated 3 days ago and took an over the counter laxative which caused her to have diarrhea. She also started experiencing burning epigastric pain accompanied by several episodes of vomiting. Pt denies blood is stool or vomitus. She also denies F/C. Currently, pt is resting comfortably in bed and states she feels better compared to yesterday. States she's hungry and would like to eat. Denies further episodes of vomiting/diarrhea. PMHx: as stated above PSHx: x 2, cardiac stents x 2 SocialHx: denies smoking/EtOH Review of Systems - Review of Systems All systems: reviewed and no additional remarkable complaints except (as per HPI ) Past Patient History - Infectious Disease Hx of Infectious Diseases: None - Tetanus Immunizations Tetanus Immunization: Unknown - Past Medical History & Family History Past Medical History?: Yes - Past Social History Smoking Status: Never Smoked - CARDIAC Hx Cardiac Disorders: Yes Hx Congestive Heart Failure: Yes Hx Hypercholesterolemia: Yes Hx Hypertension: Yes Hx Peripheral Edema: Yes - PULMONARY Hx Respiratory Disorders: Yes Hx Asthma: Yes Hx Chronic Obstructive Pulmonary Disease (COPD): Yes Hx Sleep Apnea: Yes - NEUROLOGICAL Hx Neurological Disorder: Yes HX Cerebrovascular Accident: Yes (x3) Hx Seizures: Yes Hx Transient Ischemic Attacks (TIA): Yes - HEENT Hx HEENT Problems: No - RENAL Hx Chronic Kidney Disease: No - ENDOCRINE/METABOLIC Hx Endocrine Disorders: Yes Hx Systemic Lupus Erythematosus: Yes - HEMATOLOGICAL/ONCOLOGICAL Hx Blood Disorders: No - INTEGUMENTARY Hx Dermatological Problems: No - MUSCULOSKELETAL/RHEUMATOLOGICAL Hx Musculoskeletal Disorders: Yes Hx Arthritis: Yes Hx Falls: Yes Hx Osteoporosis: Yes Hx Rheumatoid Arthritis: Yes - GASTROINTESTINAL Hx Gastrointestinal Disorders: Yes Hx Ulcer: Yes - GENITOURINARY/GYNECOLOGICAL Hx Genitourinary Disorders: Yes Hx Incontinence: Yes - PSYCHIATRIC Hx Psychophysiologic Disorder: Yes Hx Anxiety: Yes Hx Depression: Yes Hx Substance Use: No - SURGICAL HISTORY Hx Surgeries: Yes Hx Coronary Stent: Yes (x2) - ANESTHESIA Hx Anesthesia: Yes Hx Anesthesia Reactions: No Hx Malignant Hyperthermia: No Meds Allergies/Adverse Reactions: Allergies Allergy/AdvReac Type Severity Reaction Status Date / Time No Known Allergies Allergy Verified 03/17/16 12:50 - Medications Medications: Current Medications Albuterol (Ventolin Hfa 90 Mcg/Actuation (8 G)) 2 puff IH Q4H PRN PRN Reason: Shortness of Breath Albuterol Sulfate (Albuterol 0.042% Inhal Lotus (1.25mg/3ml) Ud) 1.25 mg IH RQ6 PRN PRN Reason: Shortness of Breath Home Med (Ketotifen Fumarate [Zaditor]) 1 drop BOTHEYES Q12H PRN PRN Reason: itchy eyes Sodium Chloride (Sodium Chloride 0.9%) 1,000 mls @ 100 mls/hr IV .Q10H [facility] Last Admin: 06/21/16 02:06 Dose: 100 mls/hr Morphine Sulfate (Morphine) 2 mg IVP Q4 PRN PRN Reason: Pain, moderate (4-7) Ondansetron HCl (Zofran Inj) 4 mg IVP Q4 [facility] Last Admin: 06/21/16 08:35 Dose: Not Given Pantoprazole Sodium (Protonix Inj) 40 mg IVP BID [facility] Physical Exam - Constitutional Appears: Well, No Acute Distress - Head Exam Head Exam: ATRAUMATIC, NORMOCEPHALIC - Eye Exam Eye Exam: Normal appearance - ENT Exam ENT Exam: Mucous Membranes Moist - Respiratory Exam Respiratory Exam: NORMAL BREATHING PATTERN - Cardiovascular Exam Cardiovascular Exam: RRR - GI/Abdominal Exam GI & Abdominal Exam: Soft, Tenderness (epigastric ). absent: Distended, Guarding, Rebound - Rectal Exam Rectal Exam: absent: Deferred - Extremities Exam Extremities exam: Negative for: tenderness - Neurological Exam Neurological exam: Alert, Oriented x3 - Skin Skin Exam: Dry, Warm Results - Vital Signs Recent Vital Signs: Last Vital Signs Temp 98.4 F 06/21/16 08:14 Pulse 70 06/21/16 08:14 Resp 20 06/21/16 08:14 BP 93/59 L 06/21/16 08:14 Pulse Ox 97 06/21/16 08:14 - Labs Result Diagrams: 06/21/16 07:20 06/21/16 07:20 Labs: Laboratory Results - last 24 hr 06/21/16 07:20 WBC 8.3 RBC 2.98 L Hgb 9.0 L Hct 28.0 L MCV 93.9 MCH 30.2 MCHC 32.2 L RDW 17.1 H Plt Count 271 MPV 9.6 Neut % (Auto) 44.9 L Lymph % (Auto) 36.6 Bennett % (Auto) 16.1 H Eos % (Auto) 2.1 Baso % (Auto) 0.3 Neut # 3.7 Lymph # 3.0 Bennett # 1.3 H Eos # 0.2 Baso # 0.0 Sodium 146 Potassium 3.5 L Chloride 108 H Carbon Dioxide 27 Anion Gap 15 BUN 27 H Creatinine 1.0 Est GFR ( Amer) > 60 Est GFR (Non-Af Amer) 56 Random Glucose 71 Calcium 8.2 L Assessment & Plan - Assessment and Plan (Free Text) Assessment: 60F with epigastric pain, vomiting & diarrhea Plan: - Obtain abdominal X-ray to r/o obstruction - Start liquid diet and advance as tolerated - Protonix BID - Can be DC home later today if tolerating diet - Pt seen and examined with Dr. Melanie Montana, PGY-2
--- NOTE | 2016-06-21 11:47 | CARD ---
APPROVED REPORT EKG Measurement Heart [id number] 130P6 [id number] <Conclusion> Normal sinus rhythm Nonspecific T wave abnormality Prolonged QT Abnormal ECG
--- NOTE | 2016-06-21 13:21 | RAD ---
HISTORY: r/o obstruction COMPARISON: 03/06/2012. FINDINGS: BOWEL: Negative study for obstruction or free air. BONES: Scoliosis, secondary degenerative change at multiple levels. Degenerative changes both hips approximately symmetrical. OTHER FINDINGS: Vertically oriented IVC filter new finding compared to the prior study. IMPRESSION: No significant or acute findings to account for/ related to the clinical presentation.
--- NOTE | 2016-06-21 14:23 | CP.PCM.DIS ---
Provider - Provider Date of Admission: 06/20/16 14:16 Attending physician: Zackary Marino MD Consults: Dr Navarro Time Spent in preparation of Discharge (in minutes): 35 Diagnosis - Discharge Diagnosis (1) Gastroenteritis Status: Acute Comment: asymptomatic and improved after placing on NPO with IV hydration. 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 Status: Chronic Comment: asymptomatic (3) CAD (coronary artery disease) Status: Chronic Priority: Medium Comment: continue Plavix, ASA, Lipitor (4) COPD (chronic obstructive pulmonary disease) Status: Chronic Comment: asymptomatic (5) Rheumatoid arthritis Status: Chronic Comment: resume Zarava and Voltaren (6) SLE (systemic lupus erythematosus) Status: Chronic Priority: Medium Comment: resume Plaquenil (7) DVT prophylaxis Status: Acute Hospital Course - Lab Results Lab Results: Most Recent Lab Values WBC 8.3 K/uL (4.8-10.8) 06/21/16 07:20 RBC 2.98 Mil/uL (3.80-5.20) L 06/21/16 07:20 Hgb 9.0 g/dL (12.0-16.0) L 06/21/16 07:20 Hct 28.0 % (34.0-47.0) L 06/21/16 07:20 MCV 93.9 fl (81.0-99.0) 06/21/16 07:20 MCH 30.2 pg (27.0-31.0) 06/21/16 07:20 MCHC 32.2 g/dL (33.0-37.0) L 06/21/16 07:20 RDW 17.1 % (11.5-14.5) H 06/21/16 07:20 Plt Count 271 K/uL (130-400) 06/21/16 07:20 MPV 9.6 fl (7.2-11.7) 06/21/16 07:20 Neut % (Auto) 44.9 % (50.0-75.0) L 06/21/16 07:20 Lymph % (Auto) 36.6 % (20.0-40.0) 06/21/16 07:20 Imperial % (Auto) 16.1 % (0.0-10.0) H 06/21/16 07:20 Eos % (Auto) 2.1 % (0.0-4.0) 06/21/16 07:20 Baso % (Auto) 0.3 % (0.0-2.0) 06/21/16 07:20 Neut # 3.7 K/uL (1.8-7.0) 06/21/16 07:20 Lymph # 3.0 K/uL (1.0-4.3) 06/21/16 07:20 Imperial # 1.3 K/uL (0.0-0.8) H 06/21/16 07:20 Eos # 0.2 K/uL (0.0-0.7) 06/21/16 07:20 Baso # 0.0 K/uL (0.0-0.2) 06/21/16 07:20 Sodium 146 mmol/l (132-148) 06/21/16 07:20 Potassium 3.5 MMOL/L (3.6-5.0) L 06/21/16 07:20 Chloride 108 mmol/L (98-107) H 06/21/16 07:20 Carbon Dioxide 27 mmol/L (22-30) 06/21/16 07:20 Anion Gap 15 (10-20) 06/21/16 07:20 BUN 27 mg/dl (7-17) H 06/21/16 07:20 Creatinine 1.0 mg/dL (0.7-1.2) 06/21/16 07:20 Est GFR ( Amer) > 60 06/21/16 07:20 Est GFR (Non-Af Amer) 56 06/21/16 07:20 Random Glucose 71 mg/dL (65-105) 06/21/16 07:20 Lactic Acid 1.7 MMOL/L (0.7-2.1) 06/20/16 12:35 Calcium 8.2 mg/dL (8.4-10.2) L 06/21/16 07:20 Total Bilirubin 0.5 mg/dl (0.2-1.3) 06/20/16 12:35 AST 33 U/L (14-36) 06/20/16 12:35 ALT 22 U/L (9-52) 06/20/16 12:35 Alkaline Phosphatase 96 U/L (38-126) 06/20/16 12:35 Troponin I 0.0780 ng/mL (0.00-0.120) 06/20/16 12:35 Total Protein 8.3 G/DL (6.3-8.2) H 06/20/16 12:35 Albumin 4.0 g/dL (3.5-5.0) 06/20/16 12:35 Globulin 4.3 gm/dL (2.2-3.9) H 06/20/16 12:35 Albumin/Globulin Ratio 0.9 (1.0-2.1) L 06/20/16 12:35 Lipase 163 U/L (23-300) 06/20/16 12:35 - Hospital Course Hospital Course: 60 yo female with history of SLE, PAH, CVA, CAD (2 stent) and COPD brought in by daughter because of epigastric pain since 3 days ago accompanied with mutiple bouts of vomiting and diarrhea. Patient was put on NPO with IV hydration. Her condition improved and was able to tolerate food intake the next day. Patient was discharged in stable condition. Discharge Exam - Head Exam Head Exam: ATRAUMATIC, NORMOCEPHALIC - Eye Exam Eye Exam: absent: Scleral icterus - ENT Exam ENT Exam: Mucous Membranes Moist - Respiratory Exam Respiratory Exam: absent: Wheezes, Respiratory Distress - Cardiovascular Exam Cardiovascular Exam: REGULAR RHYTHM, +S1, +S2 - GI/Abdominal Exam GI & Abdominal Exam: Soft. absent: Tenderness - Rectal Exam Rectal Exam: Deferred - Neurological Exam Neurological exam: Alert - Psychiatric Exam Psychiatric exam: Normal Affect - Skin Skin Exam: Dry, Intact Discharge Plan - Follow Up Plan Condition: FAIR Disposition: HOME/ ROUTINE Instructions: Gastroenteritis (DC)
== END 2016-06-21 16:48 | disposition home or self-care (01) ==
LOC: H.ER 10:48 → H.ERHOLD 14:16 → H.MEDSURG1 18:10
DX: K52.9 Noninfective gastroenteritis and colitis, unspecified (principal); E78.00 Pure hypercholesterolemia, unspecified; E86.0 Dehydration; G47.30 Sleep apnea, unspecified; I11.0 Hypertensive heart disease with heart failure; I50.9 Heart failure, unspecified; I25.10 Atherosclerotic heart disease of native coronary artery without angina pectoris; Z95.5 Presence of coronary angioplasty implant and graft; Z86.73 Personal history of transient ischemic attack (TIA), and cerebral infarction without residual deficits; N28.9 Disorder of kidney and ureter, unspecified; M81.0 Age-related osteoporosis without current pathological fracture; M06.9 Rheumatoid arthritis, unspecified; M32.9 Systemic lupus erythematosus, unspecified; J45.909 Unspecified asthma, uncomplicated; I27.2 Other secondary pulmonary hypertension; J44.9 Chronic obstructive pulmonary disease, unspecified; F32.9 Major depressive disorder, single episode, unspecified; Z86.718 Personal history of other venous thrombosis and embolism; F41.9 Anxiety disorder, unspecified; M19.90 Unspecified osteoarthritis, unspecified site

== ENCOUNTER 2016-06-30 12:43 | Emergency (ER) | payer MEDICAID ==
[2016-06-30 12:44] VITALS: BMI 34.0
--- NOTE | 2016-06-30 13:25 | ED PDOC ---
HPI: Abdomen Time Seen by Provider: 06/30/16 13:09 Chief Complaint (Nursing): Abdominal Pain Chief Complaint (Provider): Epigastric abdominal pain History Per: Patient Additional Complaint(s): pt c/o abdominal pain with nausea and vomiting. denies diarrhea. pt send by dr carr Past Medical History Reviewed: Nursing Documentation, Vital Signs Vital Signs: Last Vital Signs Temp 98.1 F 06/30/16 17:02 Pulse 88 06/30/16 17:02 Resp 18 06/30/16 17:02 BP 116/66 06/30/16 17:02 Pulse Ox 97 06/30/16 17:02 - Medical History PMH: Anxiety, Arthritis, Asthma, CAD, CHF, COPD, CVA (x3), Depression, Deep Vein Thrombosis, HTN, Hypercholesterolemia, Osteoporosis, Peripheral Edema, Rheumatoid Arthritis, Seizures, Sleep Apnea, TIA Denies: HIV, Chronic Kidney Disease - Surgical History Surgical History: Coronary Stent (x2), (x2) - Family History Family History: States: Unknown Family Hx - Living Arrangements Living Arrangements: With Family - Social History Current smoker - smoking cessation education provided: No Alcohol: None Drugs: Denies - Home Medications Home Medications: Ambulatory Orders Medication Instructions Recorded Losartan Potassium 25 mg PO DAILY #0 tablet 07/19/15 Albuterol HFA [Ventolin HFA 90 2 puff IH Q4H PRN 03/17/16 mcg/actuation (8 g)] Albuterol 0.042% [Albuterol 0.042% 3 ml IH Q6H PRN #20 neb 06/08/16 Inhal Lotus (1.25mg/3ml) UD] Aspirin [Ecotrin] 81 mg PO DAILY #30 tabec 06/08/16 Atorvastatin [Lipitor] 10 mg PO HS #30 tab 06/08/16 Clopidogrel [Plavix] 75 mg PO DAILY #30 tab 06/08/16 Escitalopram [Lexapro] 15 mg PO HS #30 tab 06/08/16 Folic Acid 1 mg PO DAILY #30 tab 06/08/16 Hydroxychloroquine Sulfate 200 mg PO BID #60 tablet 06/08/16 [Plaquenil] Ketotifen Fumarate [Zaditor] 1 drop BOTHEYES Q12H PRN 30 Days 06/08/16 Leflunomide [Arava] 20 mg PO DAILY #30 tablet 06/08/16 Losartan [Cozaar] 25 mg PO DAILY #30 tab 06/08/16 Mesalamine [Apriso] 4 cap PO DAILY #30 cap.er.24h 06/08/16 Mirtazapine [Remeron] 30 mg PO HS #30 tab 06/08/16 Pantoprazole Sodium [Protonix] 40 mg PO DAILY #30 tablet.dr 06/08/16 Risedronate Sodium [Actonel] 35 mg PO MO #30 tablet 06/08/16 amLODIPine [Norvasc] 5 mg PO DAILY #30 tab 06/08/16 Alprazolam [Xanax] 0.5 mg PO HS 06/20/16 Loratadine/Pseudoephedrine [Gnp 1 tab PO BID 06/20/16 Loratadine-D 12 Hour Tab] Methotrexate 10 mg pe .ROUTE QWK 06/20/16 metOLazone [Zaroxolyn] 1 tab PO DAILY 06/20/16 predniSONE [predniSONE Tab] 5 mg pe PO DAILY 06/20/16 rOPINIRole [Requip] 1 mg PO DAILY 06/20/16 traZODone [Desyrel] 50 mg PO HS 06/20/16 Ondansetron ODT [Zofran ODT] 4 mg PO Q6 PRN #10 odt 06/30/16 - Allergies Allergies/Adverse Reactions: Allergies Allergy/AdvReac Type Severity Reaction Status Date / Time No Known Allergies Allergy Verified 06/30/16 12:59 Review of Systems ROS Statement: Except As Marked, All Systems Reviewed And Found Negative Gastrointestinal: Positive for: Abdominal Pain Physical Exam - Reviewed Nursing Documentation Reviewed: Yes Vital Signs Reviewed: Yes - Physical Exam Appears: Positive for: Well, Non-toxic, No Acute Distress Head Exam: Positive for: ATRAUMATIC, NORMAL INSPECTION, NORMOCEPHALIC Skin: Positive for: Normal Color, Warm, DRY Eye Exam: Positive for: EOMI, Normal appearance, PERRL ENT: Positive for: Normal ENT Inspection Neck: Positive for: Normal, Painless ROM Cardiovascular/Chest: Positive for: Regular Rate, Rhythm Respiratory: Positive for: CNT, Normal Breath Sounds Gastrointestinal/Abdominal: Positive for: Normal Exam, Bowel Sounds, Soft Back: Positive for: Normal Inspection Extremity: Positive for: Normal ROM Neurologic/Psych: Positive for: Alert, Oriented - Laboratory Results Result Diagrams: 06/30/16 14:13 06/30/16 14:13 - ECG O2 Sat by Pulse Oximetry: 94 Medical Decision Making Medical Decision Making: Results discussed with Pt and Dr. Carr who demonstrated full understanding. Pt reports feeling improved on re-eval after being medicated with Pepcid and Zofran. stable for discharge follow up i office Disposition - Clinical Impression Clinical Impression: Gastritis - Patient ED Disposition Is Patient to be Admitted: No - Disposition Disposition: Routine/Home Disposition Time: 16:00 Condition: STABLE Prescriptions: Ondansetron ODT [Zofran ODT] 4 mg PO Q6 PRN #10 odt PRN Reason: Nausea/Vomiting Instructions: Gastritis (ED)
[2016-06-30 14:21] LABS: RBC URINE 1 /hpf (0-3); URINE BILIRUBIN NEGATIVE (NEGATIVE); URINE BLOOD NEGATIVE (NEGATIVE); URINE COLOR STRAW (YELLOW); URINE GLUCOSE (UA) NEG (Normal); URINE KETONE NEGATIVE (NEGATIVE); URINE LEUKOCYTE ESTERASE NEG Leu/uL (Negative); URINE PROTEIN NEGATIVE (NEGATIVE); URINE UROBILINOGEN 0.2-1.0 mg/dL (0.2-1.0); WBC URINE 1 /hpf (0-5)
[2016-06-30 14:23] LABS: BASO # 0.1 K/uL (0.0-0.2); BASO % 0.5 % (0.0-2.0); EOS # 0.4 K/uL (0.0-0.7); EOS % 3.3 % (0.0-4.0); HEMATOCRIT 34.1 % (34.0-47.0); LYMPH % 34.4 % (20.0-40.0); MEAN CELL VOLUME 92.1 fl (81.0-99.0); MEAN CORPUSCULAR HEMOGLOBIN 28.5 pg (27.0-31.0); MEAN PLATELET VOLUME 9.5 fl (7.2-11.7); MONO # 1.7 K/uL (0.0-0.8); MONO % 14.1 % (0.0-10.0); NEUT # 5.6 K/uL (1.8-7.0); NEUT % 47.7 % (50.0-75.0); NRBC % 0.5 % (0.0-0.0); RED CELL DISTRIBUTION WIDTH 17.7 % (11.5-14.5); WHITE BLOOD COUNT 11.7 K/uL (4.8-10.8)
[2016-06-30 14:35] LABS: ALB/GLOB RATIO 0.9 (1.0-2.1); BILIRUBIN,TOTAL 0.4 mg/dl (0.2-1.3); CALCIUM 9.1 mg/dL (8.4-10.2); POTASSIUM 3.2 MMOL/L (3.6-5.0); TOTAL PROTEIN 8.2 G/DL (6.3-8.2)
[2016-06-30 14:46] LABS: TROPONIN I 0.079 ng/mL (0.00-0.120)
--- NOTE | 2016-06-30 16:01 | RAD ---
PROCEDURE: CHEST RADIOGRAPH, 1 VIEW HISTORY: Abdominal pain COMPARISON: 06/20/2016 FINDINGS: LUNGS: The lungs are clear. PLEURA: No pneumothorax or pleural fluid seen. CARDIOVASCULAR: Normal. OSSEOUS STRUCTURES: No significant abnormalities. VISUALIZED UPPER ABDOMEN: Normal. OTHER FINDINGS: None. IMPRESSION: No active pulmonary disease.
[2016-06-30 17:04] VITALS: BP 116/66; PULSE 88; RESP 18; TEMP 98.1
[2016-06-30] MEDS ORDERED: Potassium Chloride 20 mEq ER Tab PO ONE (17:16)
--- NOTE | 2016-06-30 19:10 | CARD ---
APPROVED REPORT EKG Measurement Heart [id number] NM 120P13 [id number] <Conclusion> Sinus rhythm with premature atrial complexes Minimal voltage criteria for LVH, may be normal variant Nonspecific T wave abnormality Abnormal ECG
[2016-07-10 23:46] VITALS: O2SAT 94
== END 2016-06-30 18:06 | disposition home or self-care (01) ==
LOC: H.ER 12:43
DX: K29.70 Gastritis, unspecified, without bleeding (principal)

== ENCOUNTER 2016-08-19 11:01 | Inpatient (IN) | payer MEDICAID ==
[2016-08-19 11:01] VITALS: BMI 34.0
--- NOTE | 2016-08-19 12:21 | ED PDOC ---
HPI: General Adult Time Seen by Provider: 08/19/16 11:16 Chief Complaint (Nursing): GI Problem Chief Complaint (Provider): Weakness History Per: Patient History/Exam Limitations: no limitations Onset/Duration Of Symptoms: Days (4) Have you had recent travel within the past 21 days to any of the following countries: [place], [place], [place] or [place]?: No Current Symptoms Are (Timing): Still Present Severity: Moderate Additional Complaint(s): The pt is a 60yo female, with PMHx of DVT presents to the ED for evaluation of 4 days of generalized weakness, tightness in her right lower extremity. She denies any chest pain, SOB, abdominal pain. Of note, pt is on a daily regimen of Aspirin and Plavix due to her DVT history. Currently, pt offers no additional medical complaints. Past Medical History Reviewed: Historical Data, Nursing Documentation, Vital Signs Vital Signs: Last Vital Signs Temp 98.7 F 08/19/16 16:54 Pulse 86 08/19/16 16:54 Resp 19 08/19/16 16:54 BP 135/81 08/19/16 16:57 Pulse Ox 97 08/19/16 16:54 - Medical History PMH: Anxiety, Arthritis, Asthma, CAD, CHF, COPD, CVA (x3), Depression, Deep Vein Thrombosis, HTN, Hypercholesterolemia, Osteoporosis, Peripheral Edema, Rheumatoid Arthritis, Seizures, Sleep Apnea, TIA Denies: HIV, Chronic Kidney Disease - Surgical History Surgical History: Appendectomy, Coronary Stent (x2), (x2) - Family History Family History: States: Unknown Family Hx - Home Medications Home Medications: Ambulatory Orders Medication Instructions Recorded Albuterol HFA [Ventolin HFA 90 2 puff IH Q4H PRN 03/17/16 mcg/actuation (8 g)] Albuterol 0.042% [Albuterol 0.042% 3 ml IH Q6H PRN #20 neb 06/08/16 Inhal Lotus (1.25mg/3ml) UD] Aspirin [Ecotrin] 81 mg PO DAILY #30 tabec 06/08/16 Clopidogrel [Plavix] 75 mg PO DAILY #30 tab 06/08/16 Escitalopram [Lexapro] 15 mg PO HS #30 tab 06/08/16 Folic Acid 1 mg PO DAILY #30 tab 06/08/16 Hydroxychloroquine Sulfate 200 mg PO BID #60 tablet 06/08/16 [Plaquenil] Ketotifen Fumarate [Zaditor] 1 drop BOTHEYES Q12H PRN 30 Days 06/08/16 Losartan [Cozaar] 25 mg PO DAILY #30 tab 06/08/16 Mirtazapine [Remeron] 30 mg PO HS #30 tab 06/08/16 Pantoprazole Sodium [Protonix] 40 mg PO DAILY #30 tablet. 06/08/16 amLODIPine [Norvasc] 5 mg PO DAILY #30 tab 06/08/16 Alprazolam [Xanax] 0.5 mg PO HS 06/20/16 Loratadine/Pseudoephedrine [Gnp 1 tab PO BID 06/20/16 Loratadine-D 12 Hour Tab] Methotrexate 10 mg pe .ROUTE QWK 06/20/16 metOLazone [Zaroxolyn] 1 tab PO DAILY 06/20/16 predniSONE [predniSONE Tab] 5 mg pe PO DAILY 06/20/16 rOPINIRole [Requip] 1 mg PO DAILY 06/20/16 traZODone [Desyrel] 50 mg PO HS 06/20/16 Ondansetron ODT [Zofran ODT] 4 mg PO Q6 PRN #10 odt 06/30/16 - Allergies Allergies/Adverse Reactions: Allergies Allergy/AdvReac Type Severity Reaction Status Date / Time No Known Allergies Allergy Verified 06/30/16 12:59 Review of Systems ROS Statement: Except As Marked, All Systems Reviewed And Found Negative Constitutional: Positive for: Weakness. Negative for: Fever Cardiovascular: Negative for: Chest Pain Respiratory: Negative for: Shortness of Breath Gastrointestinal: Negative for: Abdominal Pain Musculoskeletal: Positive for: Leg Pain (right leg stiffness) Physical Exam - Reviewed Nursing Documentation Reviewed: Yes Vital Signs Reviewed: Yes - Physical Exam Appears: Positive for: Well, Non-toxic, No Acute Distress Head Exam: Positive for: ATRAUMATIC, NORMAL INSPECTION, NORMOCEPHALIC Skin: Positive for: Normal Color, Warm, DRY Eye Exam: Positive for: Normal appearance Neck: Positive for: Normal, Supple Cardiovascular/Chest: Positive for: Regular Rate, Rhythm Respiratory: Positive for: Normal Breath Sounds. Negative for: Respiratory Distress Gastrointestinal/Abdominal: Positive for: Normal Exam, Soft. Negative for: Tenderness Rectal: Positive for: Stool Is Heme: (positive), Other (no gross blood noted. brown stool. ). Negative for: Black Stool Extremity: Positive for: Normal ROM, Calf Tenderness (mild tenderness to right calf, no edema), Capillary Refill (< 2 seconds). Negative for: Pedal Edema, Swelling Neurologic/Psych: Positive for: Alert, Oriented. Negative for: Motor/Sensory Deficits - Laboratory Results Result Diagrams: 08/19/16 11:50 08/19/16 11:50 - ECG O2 Sat by Pulse Oximetry: 96 (RA) Pulse Ox Interpretation: Normal - Radiology X-Ray: Read By Radiologist (Mild central pulmonary venous congestion of. Questionable small left effusion. Cardiomegaly with markedly ectatic aorta. Rule out aneurysm.) - CT Scan/US BLE Doppler Other Rad Studies (CT/US): Radiology Report Reviewed (There is partial nonocclusive thrombus -DVT within the proximal and mid right superficial femoral vein.) Abdominal ultrasound Other Rad Studies (CT/US): Radiology Report Reviewed (Mild fatty infiltration however other infiltrative hepatocellular disease process not excluded.) - Critical Care Total Time (In Min): 30 Medical Decision Making Medical Decision Making: Time: 1215 Impression: generalized weakness, right lower extremity pain r/o DVT Plan: * Bloodwork * Urinalysis * CXR * Duplex RLE * Reassess Time: 1310 rectal exam done with nurse Lynette as double spindle shaper operator. Time: [address] Erickson, city superintendent covering for Dr. Goel. Advised pt needs transfusion and need to hold off on aspirin and plavix. Time: [address] Garcia, covering with pt's PMD Dr. Albright, he is aware of case. 17:[address] Woods, hold anticoagulation for now, reevaluate in AM, bed rest, possible IVC filter. Scribe Attestation: Documented by Alina Sr acting as a scribe for Belem Canales MD. Provider Attestation: All medical record entries made by the Scribe were at my direction and personally dictated by me. I have reviewed the chart and agree that the record accurately reflects my personal performance of the history, physical exam, medical decision making, and the department course for this patient. I have also personally directed, reviewed, and agree with the discharge instructions and disposition. Disposition - Clinical Impression Clinical Impression: Symptomatic anemia, GIB (gastrointestinal bleeding), NSTEMI (non-ST elevated myocardial infarction), DVT (deep venous thrombosis) - Patient ED Disposition Is Patient to be Admitted: Yes - Disposition Disposition Time: 14:28 Condition: GUARDED - Pt Status Changed To: Hospital Disposition Of: Inpatient - Admit Certification Admit to Inpatient:: After my assessment, the patient will require hospitalization for at least two midnights. This is because of the severity of symptoms shown, intensity of services needed, and/or the medical risk in this patient being treated as an outpatient. - POA Present On Arrival: Deep Vein Thrombosis / PE
[2016-08-19 12:35] LABS: BASO % 0.3 % (0.0-2.0); EOS % 0.1 % (0.0-4.0); HEMATOCRIT 22.6 % (34.0-47.0); LYMPH # 0.7 K/uL (1.0-4.3); LYMPH % 10.1 % (20.0-40.0); MEAN CELL VOLUME 88.2 fl (81.0-99.0); MEAN CORPUSCULAR HGB CONC 29.4 g/dL (33.0-37.0); MEAN PLATELET VOLUME 10.2 fl (7.2-11.7); MONO # 0.5 K/uL (0.0-0.8); MONO % 6.5 % (0.0-10.0); NEUT # 5.7 K/uL (1.8-7.0); NRBC % 21.1 % (0.0-0.0); RED CELL DISTRIBUTION WIDTH 22.3 % (11.5-14.5)
[2016-08-19 12:43] LABS: ALB/GLOB RATIO 0.9 (1.0-2.1); ALKALINE PHOSPHATASE 226 U/L (38-126); ALT/SGPT 265 U/L (9-52); AST/SGOT 156 U/L (14-36); BILIRUBIN,TOTAL 0.6 mg/dl (0.2-1.3); BLOOD UREA NITROGEN 20 mg/dl (7-17); CALCIUM 8.5 mg/dL (8.4-10.2); CARBON DIOXIDE 21 mmol/L (22-30); CHLORIDE 114 mmol/L (98-107); GFR AFRICAN-AMERICAN > 60; GLUCOSE,RANDOM 141 mg/dL (65-105); POTASSIUM 4.7 MMOL/L (3.6-5.0); SODIUM 145 mmol/l (132-148); TOTAL PROTEIN 7.4 G/DL (6.3-8.2)
[2016-08-19 13:01] LABS: PARTIAL THROMBOPLASTIN TIME 23.8 SECONDS (23.3-32.5)
--- NOTE | 2016-08-19 15:06 | RAD ---
HISTORY: Generalized weakness COMPARISON: Comparison made with prior study 06/30/2016 FINDINGS: LUNGS: Mild central pulmonary vascular congestive changes felt to be present. Questionable small left-sided effusion. PLEURA: No apparent pneumothorax apparent. CARDIOVASCULAR: Heart is enlarged. Markedly ectatic uncoiled aorta; rule out aortic aneurysm. OSSEOUS STRUCTURES: No significant abnormalities. VISUALIZED UPPER ABDOMEN: Normal. OTHER FINDINGS: None. IMPRESSION: Mild central pulmonary venous congestion of. Questionable small left effusion. Cardiomegaly with markedly ectatic aorta. Rule out aneurysm.
[2016-08-19 15:45] LABS: WHITE BLOOD COUNT 6.9 K/uL (4.8-10.8)
[2016-08-19] MEDS ORDERED: KETOTIFEN FUMARATE BOTHEYES PRN (16:03)
[2016-08-19] MEDS ORDERED: Albuterol-Ipratrop 3 mg / 0.5 (3 ml) UD INH PRN (16:03)
[2016-08-19] MEDS ORDERED: Albuterol 0.083% Inhal Sol (2.5 mg/3 mL) UD INH PRN (16:08)
--- NOTE | 2016-08-19 16:45 | CP.PCM.HP ---
History of Present Illness - History of Present Illness History of Present Illness: 60 year old female with past medical history of respiratory insufficiency 2/2 COPD, OLIVIA, severe PAH with connective tissue dz, SLE, RA, s/p splenectomy with chronic thrombocytopenia, hx CVA, CAD, presents to the ER today with a 4 day history of moderate to severe worsening fatigue associated with shortness of breath. Patient states she also has not had an appetite during this time. In the ER, patient was found to have Hemoglobin of 6.7, but denies any recent BRBPR , or melena. Scant blood on occult. Troponin elevated, EKG with some T wave flattening and inversions likely due to demand ischemia. No active CP. Patient also had elevated transaminases, abdominal US pending. Elevated dimer + hypercoagulable state 2/2 SLE, pending CTA to rule out PE. She was also found to have mild vascular congestion likely secondary to her severe pulmonary hypertension, Lasix 40 IVP given. Duplex lower extremities also showed DVT. At this time, patient is stable, no acute distress. Will admit to telemetry for symptomatic anemia, decompensated pulmonary hypertension, rule out PE, DVT, Type II MN, eval for lower GI bleed. ROS: per HPI, all other systems reviewed and negative by me PMD: Dr. 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, HTN, Sleep apnea using CPAP , asthmaCOPD on home oxygen (not using), dyslipidemia rheumatoid arthritis, SLE, osteoporosis, thrombocytopenia Medications; see med rec Surgeries ; Carpal tunnel surgery, C- sections x 2, bunyon removal,splecectomy Family history ; Mother had HTN, DM and CABG Father had CVA HTN and DM Social history ; Lives in [place] with grandchildren, does not smoke , does not drink , does not use any alcohol, used to work in [employer] Lip[employer] Temp Pulse Resp BP Pulse Ox 98.7 F 81 18 121/61 96 08/19/16 11:21 08/19/16 11:21 08/19/16 11:21 08/19/16 11:21 08/19/16 14:17 EXAM: Vitals stable and reviewed GEN: WDWN, alert, cooperative HEENT: NCAT, PERRL, EOMI Neck: supple, no lymphadenopathy CARDIO: +S1S2, RRR, NO M/R/G LUNG: CTAB, NO W/R/R ABD: soft, NT, ND, no masses, no HSM EXT: no edema, pedal pulses Neuro: AAOx3, Strength equal, bilateral UE/LE Psych: normal mood, normal affect LABS as below and reviewed RADS Active Medications Ketotifen Fumarate [Zaditor] 1 drop BOTHEYES Q12H PRN Albuterol 0.083% [Albuterol 0.083% Inhal Lotus (2.5 mg/3 ml) UD] 2.5 mg INH RQ4 PRN Methotrexate 10 mg pe PO QWK Methotrexate Clinical Indication: Rheumatoid Arthritis Hydroxychloroquine Sulfate [Plaquenil] 200 mg PO BID 0 Albuterol 0.083% [Albuterol 0.083% Inhal Lotus (2.5 mg/3 ml) UD] 2.5 mg INH RTID ALPRAZolam [Xanax] 0.5 mg PO HS Escitalopram [Lexapro] 15 mg PO HS Mirtazapine [Remeron] 30 mg PO HS traZODone [Desyrel] 50 mg PO HS Losartan [Cozaar] 25 mg PO DAILY amLODIPine [Norvasc] 5 mg PO DAILY metOLazone [Zaroxolyn] 1 mg PO DAILY predniSONE [predniSONE Tab] 5 mg pe PO DAILY rOPINIRole [Requip] 1 mg PO DAILY ASSESSMENT AND PLAN: 60 year old female with past medical history of respiratory insufficiency 2/2 COPD, OLIVIA, severe PAH with connective tissue dz, SLE, RA, s/p splenectomy with chronic thrombocytopenia, hx CVA, CAD, presents to the ER today with a 4 day history of moderate to severe worsening fatigue associated with shortness of breath. Patient states she also has not had an appetite during this time. In the ER, patient was found to have Hemoglobin of 6.7, but denies any recent BRBPR , or melena. Scant blood on occult. Troponin elevated, EKG with some T wave flattening and inversions likely due to demand ischemia. No active CP. Patient also had elevated transaminases, abdominal US pending. Elevated dimer + hypercoagulable state 2/2 SLE, pending CTA to rule out PE. She was also found to have mild vascular congestion likely secondary to her severe pulmonary hypertension, Lasix 40 IVP given. Duplex lower extremities also showed DVT. At this time, patient is stable, no acute distress. Will admit to telemetry for symptomatic anemia, decompensated pulmonary hypertension, rule out PE, DVT, Type II MN, eval for lower GI bleed. Symptomatic Anemia fatigue and mild dypsnea Hgb 6.7 2 units PRBC in ER hemodynamically stable continue to monitor on tele Type II MN 2/2 Anemia NSTEMI HOLD ASA, Plavix EKG - t wave flattening inferior leads, T wave inversions lateral leads continue BP meds Dr. Goel consulted in ER Rectal Bleed? 03/13/16 Colonoscopy: Biopsies showed inflammation, poss viral inclusions vs ischemia? Dr. Navarro consulted in ER no episodes of BRBPR or melena h/h stable vitals stable repeat in AM DVT Asa, Plavix currently on hold 2/2 anemia Hgb 6.7 Concern for LGIB, however no overt bleeding recent hx according to pt Scant blood on occult Consult HemeOnc Dr. Woods Consider IR or Vascular surgery for IVC filter placement? Severe decompensated PAH with connective tissue disease CAD, Hx CVA cont amlodipine, cozaar, atenolol, Lipitor +Lasix 40 mg IVP given in ER Rule out PE Hypercoagulable state Elevated Dimer, dyspnea CTA PE protocol pending Elevated transaminases Abdominal Ultrasound Hep panel COPD/asthma Duonebs for mild dyspnea stable Depression, Anxiety stable continue lexapro, remeron, trazodone, cymbalta Thrombocytopenia, s/p Splenectomy RA Sees Dr. Chávez continue plaquenil, prednisone Present on Admission - Present on Admission Any Indicators Present on Admission: Yes History of DVT/PE: Yes Past Patient History - Infectious Disease Hx of Infectious Diseases: None - Tetanus Immunizations Tetanus Immunization: Unknown - Past Medical History & Family History Past Medical History?: Yes - Past Social History Smoking Status: Never Smoked - CARDIAC Hx Congestive Heart Failure: Yes Hx Hypercholesterolemia: Yes Hx Hypertension: Yes Hx Peripheral Edema: Yes - PULMONARY Hx Asthma: Yes Hx Chronic Obstructive Pulmonary Disease (COPD): Yes Hx Sleep Apnea: Yes - NEUROLOGICAL Hx Seizures: Yes Hx Transient Ischemic Attacks (TIA): Yes - HEENT Hx HEENT Problems: No - RENAL Hx Chronic Kidney Disease: No - ENDOCRINE/METABOLIC Hx Endocrine Disorders: Yes Hx Systemic Lupus Erythematosus: Yes - HEMATOLOGICAL/ONCOLOGICAL Hx Human Immunodeficiency Virus (HIV): No - INTEGUMENTARY Hx Dermatological Problems: No - MUSCULOSKELETAL/RHEUMATOLOGICAL Hx Arthritis: Yes Hx Osteoporosis: Yes Hx Rheumatoid Arthritis: Yes - GASTROINTESTINAL Hx Gastrointestinal Disorders: Yes Hx Ulcer: Yes - GENITOURINARY/GYNECOLOGICAL Hx Genitourinary Disorders: Yes Hx Incontinence: Yes - PSYCHIATRIC Hx Anxiety: Yes Hx Depression: Yes - SURGICAL HISTORY Hx Appendectomy: Yes Hx Coronary Stent: Yes (x2) - ANESTHESIA Hx Anesthesia: Yes Hx Anesthesia Reactions: No Hx Malignant Hyperthermia: No Meds Allergies/Adverse Reactions: Allergies Allergy/AdvReac Type Severity Reaction Status Date / Time No Known Allergies Allergy Verified 06/30/16 12:59 Results - Vital Signs Recent Vital Signs: Last Vital Signs Temp 98.7 F 08/19/16 11:21 Pulse 81 08/19/16 11:21 Resp 18 08/19/16 11:21 BP 121/61 08/19/16 11:21 Pulse Ox 96 08/19/16 14:17 - Labs Result Diagrams: 08/19/16 11:50 08/19/16 11:50
--- NOTE | 2016-08-19 16:53 | US ---
PROCEDURE: Bilateral lower extremity venous duplex Doppler. HISTORY: Right lower extremity pain COMPARISON: Comparison made with prior study 03/09/2014 TECHNIQUE: Bilateral common femoral, superficial femoral, popliteal and posterior tibial veins were evaluated. Flow was assessed with color Doppler, compressibility, assessment of phasic flow and augmentation response. FINDINGS: Current study reveals on partial nonocclusive thrombus -DVT within the proximal and mid right superficial femoral vein. The remaining deep veins of the right and all the left lower extremity exhibit normal flow, compressibility and augmentation without evidence of DVT Impression: There is partial nonocclusive thrombus -DVT within the proximal and mid right superficial femoral vein.
--- NOTE | 2016-08-19 17:00 | US ---
HISTORY: Elevated LFTs COMPARISON: None. TECHNIQUE: Sonographic evaluation of the abdomen. FINDINGS: LIVER: Measures approximately 16 cm. Smooth contour however increased al echogenicity of the liver parenchyma consistent with fatty infiltration however other infiltrative hepatocellular disease process not excluded. . No mass. No intrahepatic bile duct dilatation. No ascites GALLBLADDER: Unremarkable. No gallstones. No evidence of pericholecystic fluid collections or sonographic Concepcion sign COMMON BILE DUCT: Measures 4.0 mm. No stones. No dilatation. PANCREAS: Unremarkable as visualized. Note that the pancreatic tail is poorly seen due to bowel gas and body habitus. The the No mass. No ductal dilatation. RIGHT KIDNEY: Measures approximately 9.2 x 3.5 x 3.5cm. Normal echogenicity. No calculus, mass, or hydronephrosis. LEFT KIDNEY: Measures approximately 9.5 x 3.7 x 4.3cm. Normal echogenicity. No calculus, mass, or hydronephrosis. SPLEEN: Spleen not visualized ; clinical correlation with surgical history recommended AORTA: No aneurysmal dilatation. IVC: Unremarkable. OTHER FINDINGS: None. IMPRESSION: Mild fatty infiltration however other infiltrative hepatocellular disease process not excluded. Spleen is not visualized on this exam. Clinical correlation surgical history recommended. .
[2016-08-19] MEDS ORDERED: Iodixanol 320 MG/ML 100 ML BOTTLE IV ONE (18:03)
[2016-08-19] MEDS ORDERED: Sodium Chloride 0.9% 100 ML ONE (18:04)
[2016-08-19 18:15] LABS: RBC URINE 4 /hpf (0-3); URINE BILIRUBIN NEGATIVE (NEGATIVE); URINE BLOOD NEGATIVE (NEGATIVE); URINE COLOR YELLOW (YELLOW); URINE GLUCOSE (UA) NEG (Normal); URINE KETONE NEGATIVE (NEGATIVE); URINE LEUKOCYTE ESTERASE NEG Leu/uL (Negative); URINE PROTEIN 30 mg/dL (NEGATIVE); URINE UROBILINOGEN 0.2-1.0 mg/dL (0.2-1.0); WBC URINE 2 /hpf (0-5)
[2016-08-19] MEDS ORDERED: Albuterol-Ipratrop 3 mg / 0.5 (3 ml) UD INH SCH (20:00)
[2016-08-20] MEDS ORDERED: Iodixanol 320 MG/ML 100 ML BOTTLE IV ONE (00:50)
[2016-08-20] MEDS ORDERED: Sodium Chloride 0.9% 50 ML IV ONE (00:51)
--- NOTE | 2016-08-20 02:03 | CT ---
EXAM: CT Angiography Chest With Intravenous Contrast CLINICAL HISTORY: 60 years old, female; Signs and symptoms; Shortness of breath; Additional info: Evaluate for pe TECHNIQUE: Axial computed tomographic angiography images of the chest with intravenous contrast using pulmonary embolism protocol. This CT exam was performed using one or more of the following dose reduction techniques: automated exposure control, adjustment of the mA and/or kV according to patient size, and/or use of iterative reconstruction technique. MIP reconstructed images were created and reviewed. Coronal and sagittal reformatted images were created and reviewed. CONTRAST: 90 mL of VISIPAQUE administered intravenously. EXAM DATE/TIME: Exam ordered 08/20/2016 3:32 PM COMPARISON: CT - ANGIO CHEST PE PROTOCOL 07/03/2015 4:13:26 PM FINDINGS: Artifacts: Limited visualization of the vertebral arteries related to artifacts. Pulmonary arteries: Pulmonary arteries are prominent in keeping with pulmonary arterial hypertension. No pulmonary embolism is seen to the level of the lobar pulmonary arterial branches bilaterally. The heterogeneous or decreased density of some segmental and subsegmental pulmonary arterial branches may reflect inadequate enhancement, or motion, flow, or partial voluming artifact rather than pulmonary emboli. Aorta: There is no thoracic aortic aneurysm or dissection. The great vessels of the aortic arch are patent in their visualized portions. Lungs: The previously seen left lower lobe nodule is not well appreciated on the present study, this could reflect interval resolution or could be related to compressive atelectasis There is consolidation in the right middle and lower lobes, adjacent to the fissure, see for example series 5 image 44. There is overall very limited evaluation for lung nodules and followup after the present acute process has resolved is recommended.There is prominent bilateral mosaic attenuation. 6 Millimeter solid nodule in the lingula Suggested Pleural space: There are new moderate bilateral pleural effusions. No pneumothorax. Heart: Cardiomegaly. There is cardiomegaly. Calcifications in keeping with coronary artery disease. No significant pericardial effusion. No evidence of RV dysfunction. Mediastinum: There is suggestion that the esophagus is thickwalled, correlate regarding need for further evaluation. Bones/joints: Severe degenerative spine changes. There is redemonstration of multiple severe compression fractures and extensive anterior bony fusion of the thoracic spine. Soft tissues: Unremarkable. Lymph nodes: Upper normal AP window region, right hilar node. Upper abdomen: Coarse calcification at the dome of the liver, perinephric stranding particularly on the left, spleen diminutive with a coarse calcification, and inferior vena cava filter is seen. Other findings: There is comparison to previous dated July 03, 2015. IMPRESSION: No pulmonary embolus within limits of the examination. New extensive mosaic attenuation, new moderate pleural effusions, redemonstration of cardiomegaly and coronary artery disease. Findings of pulmonary arterial hypertension. Pulmonary vascular congestion and/or airspace disease are considerations. Very limited evaluation for lung nodules. Probable 6 mm subsolid nodule in the lingula Thickwalled esophagus, correlate regarding need for further evaluation. Other as above. Note that patient has an IVC filter.
[2016-08-20] MEDS: Albuterol 0.083% Inhal Sol (2.5 mg/3 mL) UD INH SCH ×3 (08:10→19:27)
[2016-08-20] MEDS: metOLazone 2.5 MG TAB PO SCH (09:20)
--- NOTE | 2016-08-20 10:47 | CP.PCM.PN ---
Subjective - Date & Time of Evaluation Date of Evaluation: 08/20/16 Time of Evaluation: 10:30 - Subjective Subjective: No fever feels better after the transfusion, less weak no CP no SOB no abd pain denies melena Objective - Vital Signs/Intake and Output Vital Signs (last 24 hours): Temp Pulse Resp BP Pulse Ox 97.3 F L 75 20 129/74 98 08/20/16 08:34 08/20/16 09:19 08/20/16 08:34 08/20/16 09:19 08/20/16 08:34 - Medications Medications: Current Medications Albuterol Sulfate (Albuterol 0.083% Inhal Lotus (2.5 Mg/3 Ml) Ud) 2.5 mg INH RQ4 PRN PRN Reason: Shortness of Breath Albuterol Sulfate (Albuterol 0.083% Inhal Lotus (2.5 Mg/3 Ml) Ud) 2.5 mg INH RTID [facility] Last Admin: 08/20/16 08:10 Dose: 2.5 mg Alprazolam (Xanax) 0.5 mg PO HS [facility] Last Admin: 08/19/16 22:45 Dose: 0.5 mg Amlodipine Besylate (Norvasc) 5 mg PO DAILY [facility] Last Admin: 08/20/16 09:19 Dose: 5 mg Escitalopram Oxalate (Lexapro) 15 mg PO HS [facility] Last Admin: 08/19/16 22:45 Dose: 15 mg Home Med (Ketotifen Fumarate [Zaditor]) 1 drop BOTHEYES Q12H PRN PRN Reason: itchy eyes Home Med (Ropinirole [Requip]) 1 mg PO DAILY [facility] Hydroxychloroquine Sulfate (Plaquenil) 200 mg PO BID [facility] Last Admin: 08/20/16 09:20 Dose: 200 mg Losartan Potassium (Cozaar) 25 mg PO DAILY [facility] Last Admin: 08/20/16 09:18 Dose: 25 mg Methotrexate (Methotrexate) 10 mg PO QWK [facility] PRN Reason: Protocol Metolazone (Zaroxolyn) 2.5 mg PO DAILY [facility] Last Admin: 08/20/16 09:20 Dose: 2.5 mg Mirtazapine (Remeron) 30 mg PO HS [facility] Last Admin: 08/19/16 22:46 Dose: 30 mg Ondansetron HCl (Zofran Inj) 4 mg IVP Q4 PRN PRN Reason: Nausea/Vomiting Last Admin: 08/19/16 17:15 Dose: 4 mg Prednisone (Prednisone Tab) 5 mg PO DAILY [facility] Last Admin: 08/20/16 09:20 Dose: 5 mg Trazodone HCl (Desyrel) 50 mg PO HS [facility] Last Admin: 08/19/16 22:45 Dose: 50 mg - Labs Labs: PT 12.3 SECONDS (9.6-11.2) H 08/19/16 11:50 INR 1.18 (0.92-1.08) H 08/19/16 11:50 APTT 23.8 SECONDS (23.3-32.5) 08/19/16 11:50 - Constitutional Appears: No Acute Distress, Chronically Ill - Head Exam Head Exam: NORMAL INSPECTION, NORMOCEPHALIC - Eye Exam Eye Exam: EOMI, Normal appearance Pupil Exam: NORMAL ACCOMODATION - ENT Exam ENT Exam: Mucous Membranes Moist, Normal External Ear Exam - Neck Exam Neck Exam: Full ROM. absent: Meningismus - Respiratory Exam Respiratory Exam: Decreased Breath Sounds, Rhonchi, NORMAL BREATHING PATTERN. absent: Wheezes, Respiratory Distress - Cardiovascular Exam Cardiovascular Exam: REGULAR RHYTHM, +S1, +S2 - Extremities Exam Extremities Exam: Normal Capillary Refill, Pedal Edema. absent: Calf Tenderness , Tenderness - Back Exam Back Exam: Full ROM. absent: CVA tenderness (L), CVA tenderness (R), paraspinal tenderness, vertebral tenderness - Neurological Exam Neurological Exam: Alert, Awake, CN II-XII Intact - Psychiatric Exam Psychiatric exam: Normal Affect, Normal Mood - Skin Skin Exam: Dry, Normal Color, Warm Assessment and Plan (1) Symptomatic anemia Status: Acute (2) Elevated troponin Status: Acute (3) CAD (coronary artery disease) Status: Chronic (4) COPD (chronic obstructive pulmonary disease) Status: Chronic (5) Chronic congestive heart failure Status: Chronic (6) History of CVA with residual deficit Status: Chronic (7) DVT (deep venous thrombosis) Status: Acute (8) Pulmonary artery hypertension associated with connective tissue disease Status: Chronic (9) Rheumatoid arthritis Status: Chronic - Assessment and Plan (Free Text) Assessment: 60 y/o lady with hx of CAD s/p stent, CHF, CVA , DVT, COPD, RA, Pulm HTN came in because of weakness . In the ED Hgb found to be 6.8. (1) Symptomatic anemia , prob acute on chronic , r/o blood loss from GI Status: Acute Transfuse 2 units PRBC GI consult Hematology consult Protonix daily Pt denies melena Stool guaiac (2) Elevated troponin prob sec to demand ischemia due to anemia Status: Acute cardio consulted- discussed case with dr Dre poole to hold off on anti platelets ECHO cont BB and ARB (3) CAD (coronary artery disease) Status: Chronic as above (4) COPD (chronic obstructive pulmonary disease) Status: Chronic stable Duoneb prn cont Oxygen 3 liters p[er NC (5) Chronic congestive heart failure, diastolic dysfunction Status: Chronic Echo Feb 2016 : normal EF severe pulm HTN cont Calcium channel susana (6) History of CVA with residual deficit Status: Chronic (7) DVT (deep venous thrombosis) right LE Status: Acute Doppler US of right LE : partial nonocclussive thrombus femoral vein no antyicoag sec to severe anemi pt has an IVC filter - placed 3 yrs ago ( confirmed on CT ) (8) Pulmonary artery hypertension associated with connective tissue disease Status: Chronic Pulm and Cardio consult cont Ca Channel susana Lasix prn may benefit with Right heart Cath (9) Rheumatoid arthritis pt on Methrotrexate , Plaquenil and Prednisone 10. Depression cont lexapro DVT proph - no anticoag sec to poss GI bleed no SCD due to DVT in LE pt has IVC filter
[2016-08-20 10:59] LABS: ALB/GLOB RATIO 0.9 (1.0-2.1); ALKALINE PHOSPHATASE 197 U/L (38-126); ALT/SGPT 212 U/L (9-52); AST/SGOT 92 U/L (14-36); BILIRUBIN,TOTAL 0.8 mg/dl (0.2-1.3); BLOOD UREA NITROGEN 18 mg/dl (7-17); CALCIUM 8.5 mg/dL (8.4-10.2); CARBON DIOXIDE 26 mmol/L (22-30); CHLORIDE 109 mmol/L (98-107); GFR AFRICAN-AMERICAN > 60; GLUCOSE,RANDOM 105 mg/dL (65-105); POTASSIUM 3.8 MMOL/L (3.6-5.0); SODIUM 143 mmol/l (132-148); TOTAL PROTEIN 7.3 G/DL (6.3-8.2)
--- NOTE | 2016-08-20 14:35 | CP.PCM.CON ---
History of Present Illness - History of Present Illness History of Present Illness: I has been requested by Dr Albright to evaluate patient Jess Sykes who presented to ED c/o progressive episodes of SOB for the past 2 weeks. Patient is well Known to our practice and she has the previous medical history of CAD s/p Stent , HTN, old CVA , SLE , COPD and hyperlipidemia who stated that she was doing well till 2 weeks ago when she started with generalize fatigue and weakness. Patient was found to be severely anemic with Hgb of 6.8 and with mildly elevated Troponin. Patient denies chest pain ,nausea , vomiting ,palpitations, melena or hematuria. She did noticed occasional black stools. Review of Systems - Constitutional Constitutional: Fatigue, Headache, Weakness - Cardiovascular Cardiovascular: Dyspnea, Dyspnea on Exertion - Respiratory Respiratory: Cough, Dyspnea, Hemoptysis (negative) - Gastrointestinal Gastrointestinal: Change in Stool Character, Constipation, Heartburn, Hematemesis (negative) - Genitourinary Genitourinary: Hematuria (negative) - Musculoskeletal Musculoskeletal: Arthralgias, Myalgias - Neurological Neurological: Dizziness, Headaches, Weakness - Psychiatric Psychiatric: Anxiety, Depression Past Patient History - Infectious Disease Hx of Infectious Diseases: None - Tetanus Immunizations Tetanus Immunization: Unknown - Past Medical History & Family History Past Medical History?: Yes Past Family History: Reviewed and not pertinent - Past Social History Smoking Status: Never Smoked Chewing Tobacco Use: No Alcohol: None Drugs: Denies - CARDIAC Hx Congestive Heart Failure: Yes Hx Hypercholesterolemia: Yes Hx Hypertension: Yes Hx Peripheral Edema: Yes Other/Comment: CAD - PULMONARY Hx Asthma: Yes Hx Chronic Obstructive Pulmonary Disease (COPD): Yes Hx Sleep Apnea: Yes - NEUROLOGICAL Hx Neurological Disorder: Yes HX Cerebrovascular Accident: Yes Hx Seizures: Yes Hx Transient Ischemic Attacks (TIA): Yes - HEENT Hx HEENT Problems: No - RENAL Hx Chronic Kidney Disease: No - ENDOCRINE/METABOLIC Hx Endocrine Disorders: Yes Hx Diabetes Mellitus Type 2: No Hx Systemic Lupus Erythematosus: Yes - HEMATOLOGICAL/ONCOLOGICAL Hx Human Immunodeficiency Virus (HIV): No - INTEGUMENTARY Hx Dermatological Problems: No - MUSCULOSKELETAL/RHEUMATOLOGICAL Hx Arthritis: Yes Hx Falls: No Hx Osteoporosis: Yes Hx Rheumatoid Arthritis: Yes - GASTROINTESTINAL Hx Gastrointestinal Disorders: Yes Hx Gastritis: Yes Hx Ulcer: Yes (Colon) - GENITOURINARY/GYNECOLOGICAL Hx Genitourinary Disorders: Yes Hx Incontinence: Yes - PSYCHIATRIC Hx Anxiety: Yes Hx Depression: Yes Hx Substance Use: No - SURGICAL HISTORY Hx Appendectomy: Yes Hx Coronary Stent: Yes (x2 [facility] and [facility] [place]) - ANESTHESIA Hx Anesthesia: Yes Hx Anesthesia Reactions: No Hx Malignant Hyperthermia: No Meds Allergies/Adverse Reactions: Allergies Allergy/AdvReac Type Severity Reaction Status Date / Time No Known Allergies Allergy Verified 06/30/16 12:59 - Medications Medications: Current Medications Albuterol Sulfate (Albuterol 0.083% Inhal Lotus (2.5 Mg/3 Ml) Ud) 2.5 mg INH RQ4 PRN PRN Reason: Shortness of Breath Albuterol Sulfate (Albuterol 0.083% Inhal Lotus (2.5 Mg/3 Ml) Ud) 2.5 mg INH [facility]ID [facility] Last Admin: 08/20/16 08:10 Dose: 2.5 mg Alprazolam (Xanax) 0.5 mg PO HS [facility] Last Admin: 08/19/16 22:45 Dose: 0.5 mg Amlodipine Besylate (Norvasc) 5 mg PO DAILY [facility] Last Admin: 08/20/16 09:19 Dose: 5 mg Escitalopram Oxalate (Lexapro) 15 mg PO HS [facility] Last Admin: 08/19/16 22:45 Dose: 15 mg Home Med (Ketotifen Fumarate [Zaditor]) 1 drop BOTHEYES Q12H PRN PRN Reason: itchy eyes Home Med (Ropinirole [Requip]) 1 mg PO DAILY [facility] Hydroxychloroquine Sulfate (Plaquenil) 200 mg PO BID [facility] Last Admin: 08/20/16 09:20 Dose: 200 mg Losartan Potassium (Cozaar) 25 mg PO DAILY [facility] Last Admin: 08/20/16 09:18 Dose: 25 mg Methotrexate (Methotrexate) 10 mg PO QWK [facility] PRN Reason: Protocol Metolazone (Zaroxolyn) 2.5 mg PO DAILY [facility] Last Admin: 08/20/16 09:20 Dose: 2.5 mg Mirtazapine (Remeron) 30 mg PO HS [facility] Last Admin: 08/19/16 22:46 Dose: 30 mg Ondansetron HCl (Zofran Inj) 4 mg IVP Q4 PRN PRN Reason: Nausea/Vomiting Last Admin: 08/19/16 17:15 Dose: 4 mg Prednisone (Prednisone Tab) 5 mg PO DAILY [facility] Last Admin: 08/20/16 09:20 Dose: 5 mg Trazodone HCl (Desyrel) 50 mg PO HS [facility] Last Admin: 08/19/16 22:45 Dose: 50 mg Physical Exam - Constitutional Appears: Well, No Acute Distress - Head Exam Head Exam: ATRAUMATIC, NORMOCEPHALIC - Respiratory Exam Respiratory Exam: Clear to Auscultation Bilateral - Cardiovascular Exam Cardiovascular Exam: REGULAR RHYTHM, Systolic Murmur (1/6 LSB) - GI/Abdominal Exam GI & Abdominal Exam: Normal Bowel Sounds - Rectal Exam Rectal Exam: Deferred - Extremities Exam Extremities exam: Positive for: full ROM, normal inspection - Neurological Exam Neurological exam: Alert, Oriented x3 (some dysartria) Results - Vital Signs Recent Vital Signs: Last Vital Signs Temp 97.7 F 08/20/16 12:32 Pulse 82 08/20/16 12:32 Resp 20 08/20/16 12:32 BP 123/77 08/20/16 12:32 Pulse Ox 96 08/20/16 12:32 - Labs Result Diagrams: 08/19/16 11:50 08/20/16 09:30 Labs: Laboratory Results - last 24 hr 08/19/16 08/19/16 08/19/16 16:51 17:10 19:37 Retic Count Sodium Potassium Chloride Carbon Dioxide Anion Gap BUN Creatinine Est GFR ( Amer) Est GFR (Non-Af Amer) POC Glucose (mg/dL) 113 H Random Glucose Calcium Ferritin 30.3 Total Bilirubin AST ALT Alkaline Phosphatase Troponin I Total Protein Albumin Globulin Albumin/Globulin Ratio Vitamin B12 682 Urine Color Yellow Urine Clarity Clear Urine pH 6.0 Ur Specific [place] 1.018 Urine Protein 30 Urine Glucose (UA) Neg Urine Ketones Negative Urine Blood Negative Urine Nitrate Negative Urine Bilirubin Negative Urine Urobilinogen 0.2-1.0 Ur Leukocyte Esterase Neg Urine RBC (Auto) 4 H Urine Microscopic WBC 2 Ur Squamous Epith Cells 5 Hyaline Casts 0-2 08/19/16 08/19/16 08/20/16 19:38 20:21 09:30 Retic Count Cancelled Sodium 143 Potassium 3.8 Chloride 109 H Carbon Dioxide 26 Anion Gap 12 BUN 18 H Creatinine 0.9 Est GFR ( Amer) > 60 Est GFR (Non-Af Amer) > 60 POC Glucose (mg/dL) Random Glucose 105 Calcium 8.5 Ferritin Total Bilirubin 0.8 AST 92 H D ALT 212 H Alkaline Phosphatase 197 H Troponin I 1.2900 H* 1.4600 H* Total Protein 7.3 Albumin 3.4 L Globulin 3.9 Albumin/Globulin Ratio 0.9 L Vitamin B12 Urine Color Urine Clarity Urine pH Ur Specific [place] Urine Protein Urine Glucose (UA) Urine Ketones Urine Blood Urine Nitrate Urine Bilirubin Urine Urobilinogen Ur Leukocyte Esterase Urine RBC (Auto) Urine Microscopic WBC Ur Squamous Epith Cells Hyaline Casts - EKG Data EKG Interpreted by: Myself EKG shows normal: Sinus rhythm Rate: Normal - Impressions Impression: NSR with NSST changes. - Imaging and Cardiology CT scan - chest Status: Report reviewed by me (No PE) Chest x-ray Status: Report reviewed by me (Mild Congestion.) Assessment & Plan - Assessment and Plan (Free Text) Assessment: 1 Sever anemia r/o 2 ry to GI causes. 2 Elevated Troponin / NSTEMI r/o 2ry to decrease O2 supply. 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 5 Hold ASA and Plavix 6 Consider GI evaluation. 7 Will follow. 8 Adjust Cardiac medications.
--- NOTE | 2016-08-20 15:39 | CP.PCM.CON ---
History of Present Illness - History of Present Illness History of Present Illness: Pulmonary consult for a 60 y/o F, admitted on 08/19/16 to [facility], [place] with worsening fatigue associated to SOB,REBOLLEDO, and weakness for 4 days [employer] with no relief. Worsening symptoms: Hx of COPD with O2 at home (not using it), OLIVIA on BIPAP, lack of appetite, Hx of R/A. Pt denied: Fever, chills, cough, CP, n/v/d, abdominal pain, sick contact recent travel. PMHx: COPD with O2 at home( not using it), Asthma, Pulmonary HTN, OLIVIA on BIPAP , DVT on Aspirin and Plavix, HTN, CHF, CVA x 3 with some deficit, CAD with coronary stent x 2, TIA, R/A on Methotrexate, O/A, Carpal Tunnel Syndrome, SLE on Plaquenil and Pednisone 5 mg, Osteoporosis, Peripheral edema, Hypercholesterolemia. On evaluation in the ER, Pt was found with Hgb fo 6.8, Troponin [id number]. Also c/ o of R leg pain. Chest CT showed: No PE, no Pneumothorax. CHF, Pulmonary HTN, Pulmonary vascular congestion, b/l pleural effusion, Lung nodules. Ext U-S shows: DVT withing the proximal and mid R superficial femoral vein. ( Pt with Hx of previous IVC filter inserted for PE 3 yrs ago as per PT). Review of Systems - Constitutional Constitutional: Sleep Apnea, Weakness - EENT Eyes: Other (negative) Ears: Other (negative) Nose/Mouth/Throat: Other (negative) - Cardiovascular Cardiovascular: Dyspnea, Dyspnea on Exertion - Respiratory Respiratory: Dyspnea, Dyspnea on Exertion, Chest Congestion - Gastrointestinal Gastrointestinal: Other (negative) - Genitourinary Genitourinary: Other (negative) - Musculoskeletal Musculoskeletal: Arthralgias, Myalgias, Other (R leg, hands and knees pain.) - Integumentary Integumentary: Swelling (R calf) - Neurological Neurological: Weakness - Psychiatric Psychiatric: Anxiety, Depression - Endocrine Endocrine: Other (negative) - Hematologic/Lymphatic Hematologic: Other (anemia) Past Patient History - Infectious Disease Hx of Infectious Diseases: None - Tetanus Immunizations Tetanus Immunization: Unknown - Past Medical History & Family History Past Medical History?: Yes Past Family History: Reviewed and not pertinent Pertinent Family History: Father: DM, HTN, CVA. Mother: HTN, DM, CABG. - Past Social History Smoking Status: Never Smoked Chewing Tobacco Use: No Alcohol: None Drugs: Denies Home Situation {Lives}: With Family - CARDIAC Hx Cardiac Disorders: Yes Hx Congestive Heart Failure: Yes Hx Hypercholesterolemia: Yes Hx Hypertension: Yes Hx Peripheral Edema: Yes Other/Comment: CAD - PULMONARY Hx Respiratory Disorders: Yes Hx Asthma: Yes Hx Chronic Obstructive Pulmonary Disease (COPD): Yes Hx Sleep Apnea: Yes - NEUROLOGICAL Hx Neurological Disorder: Yes HX Cerebrovascular Accident: Yes Hx Seizures: Yes Hx Transient Ischemic Attacks (TIA): Yes - HEENT Hx HEENT Problems: No - RENAL Hx Chronic Kidney Disease: No - ENDOCRINE/METABOLIC Hx Endocrine Disorders: Yes Hx Diabetes Mellitus Type 2: No Hx Systemic Lupus Erythematosus: Yes - HEMATOLOGICAL/ONCOLOGICAL Hx Blood Disorders: Yes Hx Anemia: Yes Hx Human Immunodeficiency Virus (HIV): No - INTEGUMENTARY Hx Dermatological Problems: No - MUSCULOSKELETAL/RHEUMATOLOGICAL Hx Musculoskeletal Disorders: Yes Hx Arthritis: Yes Hx Falls: No Hx Osteoporosis: Yes Hx Rheumatoid Arthritis: Yes - GASTROINTESTINAL Hx Gastrointestinal Disorders: Yes Hx Gastritis: Yes Hx Ulcer: Yes (Colon) - GENITOURINARY/GYNECOLOGICAL Hx Genitourinary Disorders: Yes Hx Incontinence: Yes - PSYCHIATRIC Hx Psychophysiologic Disorder: Yes Hx Anxiety: Yes Hx Depression: Yes Hx Substance Use: No - SURGICAL HISTORY Hx Surgeries: Yes Hx Appendectomy: Yes Hx [place]ary St[place]: Yes [place] [facility] [place] - ANESTHESIA Hx Anesthesia: Yes Hx Anesthesia Reactions: No Hx Malignant Hyperthermia: No Meds Home Medications: Home Medication List Medication Instructions Recorded Confirmed Type Metoprolol Succinate [Toprol XL] 25 mg PO DAILY #30 tab 08/22/16 Rx Allergies/Adverse Reactions: Allergies Allergy/AdvReac Type Severity Reaction Status Date / Time No Known Allergies Allergy Verified 06/30/16 12:59 - Medications Medications: Current Medications Albuterol Sulfate (Albuterol 0.083% Inhal Lotus (2.5 Mg/3 Ml) Ud) 2.5 mg INH RQ4 PRN PRN Reason: Shortness of Breath Albuterol Sulfate (Albuterol 0.083% Inhal Lotus (2.5 Mg/3 Ml) Ud) 2.5 mg INH RTID [facility] Last Admin: 08/20/16 14:32 Dose: 2.5 mg Alprazolam (Xanax) 0.5 mg PO HS [facility] Last Admin: 08/19/16 22:45 Dose: 0.5 mg Amlodipine Besylate (Norvasc) 5 mg PO DAILY [facility] Last Admin: 08/20/16 09:19 Dose: 5 mg Escitalopram Oxalate (Lexapro) 15 mg PO [facility] Last Admin: 08/19/16 22:45 Dose: 15 mg Home Med (Ketotifen Fumarate [Zaditor]) 1 drop BOTHEYES Q12H PRN PRN Reason: itchy eyes Home Med (Ropinirole [Requip]) 1 mg PO DAILY [facility] Hydroxychloroquine Sulfate (Plaquenil) 200 mg PO BID [facility] Last Admin: 08/20/16 09:20 Dose: 200 mg Losartan Potassium (Cozaar) 25 mg PO DAILY [facility] Last Admin: 08/20/16 09:18 Dose: 25 mg Methotrexate (Methotrexate) 10 mg PO QWK [facility] PRN Reason: Protocol Metolazone (Zaroxolyn) 2.5 mg PO DAILY [facility] Last Admin: 08/20/16 09:20 Dose: 2.5 mg Metoprolol Succinate (Toprol Xl) 25 mg PO DAILY [facility] Mirtazapine (Remeron) 30 mg PO [facility] Last Admin: 08/19/16 22:46 Dose: 30 mg Ondansetron HCl (Zofran Inj) 4 mg IVP Q4 PRN PRN Reason: Nausea/Vomiting Last Admin: 08/19/16 17:15 Dose: 4 mg Prednisone (Prednisone Tab) 5 mg PO DAILY [facility] Last Admin: 08/20/16 09:20 Dose: 5 mg Trazodone HCl (Desyrel) 50 mg PO [facility] Last Admin: 08/19/16 22:45 Dose: 50 mg Physical Exam - Constitutional Appears: No Acute Distress, Chronically Ill - Head Exam Head Exam: NORMAL INSPECTION - Eye Exam Eye Exam: PERRL - ENT Exam ENT Exam: Normal Oropharynx - Neck Exam Neck exam: Positive for: Normal Inspection - Respiratory Exam Respiratory Exam: Decreased Breath Sounds (at bases) Additional comments: Crackles at bases - Cardiovascular Exam Cardiovascular Exam: REGULAR RHYTHM, Systolic Murmur (1/6 LSB) - GI/Abdominal Exam GI & Abdominal Exam: Normal Bowel Sounds, Soft - Extremities Exam Extremities exam: Positive for: tenderness (Hands and knees, R calf tenderness and swelling.) Additional comments: Raymond fingers swan neck deformity, ulnar deviation. - Back Exam Back exam: NORMAL INSPECTION - Neurological Exam Neurological exam: Alert, Oriented x3 Additional comments: Mild left hemiparesis, speech slightly slurred. - Psychiatric Exam Psychiatric exam: Anxious, Depressed - Skin Skin Exam: Warm Results - Vital Signs Recent Vital Signs: reviewed J.P. Last Vital Signs Temp 97.7 F 08/20/16 12:32 Pulse 82 08/20/16 12:32 Resp 20 08/20/16 12:32 BP 123/77 08/20/16 12:32 Pulse Ox 96 08/20/16 12:32 - Labs Result Diagrams: 08/22/16 10:26 08/22/16 10:26 Labs: Laboratory Results - last 24 hr 08/19/16 08/19/16 08/19/16 16:51 17:10 19:37 Retic Count Sodium Potassium Chloride Carbon Dioxide Anion Gap BUN Creatinine Est GFR ( Amer) Est GFR (Non-Af Amer) POC Glucose (mg/dL) 113 H Random Glucose Calcium Ferritin 30.3 Total Bilirubin AST ALT Alkaline Phosphatase Troponin I Total Protein Albumin Globulin Albumin/Globulin Ratio Vitamin B12 682 Urine Color Yellow Urine Clarity Clear Urine pH 6.0 Ur Specific [place] 1.018 Urine Protein 30 Urine Glucose (UA) Neg Urine Ketones Negative Urine Blood Negative Urine Nitrate Negative Urine Bilirubin Negative Urine Urobilinogen 0.2-1.0 Ur Leukocyte Esterase Neg Urine RBC (Auto) 4 H Urine Microscopic WBC 2 Ur Squamous Epith Cells 5 Hyaline Casts 0-2 08/19/16 08/19/16 08/20/16 19:38 20:21 09:30 Retic Count Cancelled Sodium 143 Potassium 3.8 Chloride 109 H Carbon Dioxide 26 Anion Gap 12 BUN 18 H Creatinine 0.9 Est GFR ( Amer) > 60 Est GFR (Non-Af Amer) > 60 POC Glucose (mg/dL) Random Glucose 105 Calcium 8.5 Ferritin Total Bilirubin 0.8 AST 92 H D ALT 212 H Alkaline Phosphatase 197 H Troponin I 1.2900 H* 1.4600 H* Total Protein 7.3 Albumin 3.4 L Globulin 3.9 Albumin/Globulin Ratio 0.9 L Vitamin B12 Urine Color Urine Clarity Urine pH Ur Specific [place] Urine Protein Urine Glucose (UA) Urine Ketones Urine Blood Urine Nitrate Urine Bilirubin Urine Urobilinogen Ur Leukocyte Esterase Urine RBC (Auto) Urine Microscopic WBC Ur Squamous Epith Cells Hyaline Casts reviewed DarrinPNelly - Imaging and Cardiology Chest x-ray Status: Report reviewed by (Antonio) CT scan - chest Status: Report reviewed by (Antonio) Venous US Status: Report reviewed by me (Antonio) Assessment & Plan (1) Respiratory insufficiency Status: Acute Priority: High (2) Pulmonary artery hypertension Status: Acute Priority: High (3) COPD (chronic obstructive pulmonary disease) Status: Chronic Priority: High (4) Dvt femoral (deep venous thrombosis) Status: Acute Priority: High (5) OLIVIA (obstructive sleep apnea) Status: Chronic (6) CHF (congestive heart failure) Status: Chronic - Assessment and Plan (Free Text) Plan: Agree with management, Pt Tx with Lasix, Nebulizer Tx. Chest CT showed no PE, Pulmonary HTN multifactorial 2nd to lung collagen disease and CHF, Lung nodules work up deferred, CT Chest should be repeated in 3months. Ext U-S showed DVT R femoral vein, not on anticoagulants Tx 2nd to severe anemia. Continue with transfusion, attempt to keep Hgb above level - Date & Time Date: 08/20/16
--- NOTE | 2016-08-20 16:57 | CP.PCM.CON ---
History of Present Illness - History of Present Illness History of Present Illness: 60 year old female with a history of CAD, CVA, CHF, SLE, rheumatoid arthritis on methotrexate, admitted with symptomatic anemia, found to guaic positive, positive troponins, LE DVT. Due to guaiac positivity, anticoagulation for DVT was not started but pt has an IVC filter. She does admit to poor mobility due to arthritis. She denies abnormal bleeding and bruising. Past medical history: CAD, CVA, CHF, SLE, rheumatoid arthritis on methotrexate Past surgical history: , splenectomy Family history: Denies hematologic and oncologic problems Social history: Denies tobacco, alcohol, and illicit drug use. Allergies: NKA Review of systems: All remaining review of systems including HEENT, cardiovascular, respiratory, gastrointestinal, genitourinary, musculoskeletal, dermatologic, neurologic, and psychiatric are negative unless mentioned in the HPI. Past Patient History - Infectious Disease Hx of Infectious Diseases: None - Tetanus Immunizations Tetanus Immunization: Unknown - Past Medical History & Family History Past Medical History?: Yes Past Family History: Reviewed and not pertinent - Past Social History Smoking Status: Never Smoked Chewing Tobacco Use: No Alcohol: None Drugs: Denies - CARDIAC Hx Congestive Heart Failure: Yes Hx Hypercholesterolemia: Yes Hx Hypertension: Yes Hx Peripheral Edema: Yes Other/Comment: CAD - PULMONARY Hx Asthma: Yes Hx Chronic Obstructive Pulmonary Disease (COPD): Yes Hx Sleep Apnea: Yes - NEUROLOGICAL Hx Neurological Disorder: Yes HX Cerebrovascular Accident: Yes Hx Seizures: Yes Hx Transient Ischemic Attacks (TIA): Yes - HEENT Hx HEENT Problems: No - RENAL Hx Chronic Kidney Disease: No - ENDOCRINE/METABOLIC Hx Endocrine Disorders: Yes Hx Diabetes Mellitus Type 2: No Hx Systemic Lupus Erythematosus: Yes - HEMATOLOGICAL/ONCOLOGICAL Hx Human Immunodeficiency Virus (HIV): No - INTEGUMENTARY Hx Dermatological Problems: No - MUSCULOSKELETAL/RHEUMATOLOGICAL Hx Arthritis: Yes Hx Falls: No Hx Osteoporosis: Yes Hx Rheumatoid Arthritis: Yes - GASTROINTESTINAL Hx Gastrointestinal Disorders: Yes Hx Gastritis: Yes Hx Ulcer: Yes (Colon) - GENITOURINARY/GYNECOLOGICAL Hx Genitourinary Disorders: Yes Hx Incontinence: Yes - PSYCHIATRIC Hx Anxiety: Yes Hx Depression: Yes Hx Substance Use: No - SURGICAL HISTORY Hx Appendectomy: Yes Hx [place]ary St[place]: [place] [place] [facility] [place] ANESTHESIA Hx Anesthesia: Yes Hx Anesthesia Reactions: No Hx Malignant Hyperthermia: No Meds Allergies/Adverse Reactions: Allergies Allergy/AdvReac Type Severity Reaction Status Date / Time No Known Allergies Allergy Verified 06/30/16 12:59 - Medications Medications: Current Medications Albuterol Sulfate (Albuterol 0.083% Inhal Lotus (2.5 Mg/3 Ml) Ud) 2.5 mg INH RQ4 PRN PRN Reason: Shortness of Breath Albuterol Sulfate (Albuterol 0.083% Inhal Lotus (2.5 Mg/3 Ml) Ud) 2.5 mg INH RTID [facility] Last Admin: 08/20/16 14:32 Dose: 2.5 mg Alprazolam (Xanax) 0.5 mg PO HS [facility] Last Admin: 08/19/16 22:45 Dose: 0.5 mg Amlodipine Besylate (Norvasc) 5 mg PO DAILY [facility] Last Admin: 08/20/16 09:19 Dose: 5 mg Escitalopram Oxalate (Lexapro) 15 mg PO HS [facility] Last Admin: 08/19/16 22:45 Dose: 15 mg Home Med (Ketotifen Fumarate [Zaditor]) 1 drop BOTHEYES Q12H PRN PRN Reason: itchy eyes Home Med (Ropinirole [Requip]) 1 mg PO DAILY [facility] Hydroxychloroquine Sulfate (Plaquenil) 200 mg PO BID [facility] Last Admin: 08/20/16 16:30 Dose: 200 mg Losartan Potassium (Cozaar) 25 mg PO DAILY [facility] Last Admin: 08/20/16 09:18 Dose: 25 mg Methotrexate (Methotrexate) 10 mg PO QWK [facility] PRN Reason: Protocol Metolazone (Zaroxolyn) 2.5 mg PO DAILY [facility] Last Admin: 08/20/16 09:20 Dose: 2.5 mg Metoprolol Succinate (Toprol Xl) 25 mg PO DAILY [facility] Mirtazapine (Remeron) 30 mg PO HS [facility] Last Admin: 08/19/16 22:46 Dose: 30 mg Ondansetron HCl (Zofran Inj) 4 mg IVP Q4 PRN PRN Reason: Nausea/Vomiting Last Admin: 08/19/16 17:15 Dose: 4 mg Prednisone (Prednisone Tab) 5 mg PO DAILY [facility] Last Admin: 08/20/16 09:20 Dose: 5 mg Trazodone HCl (Desyrel) 50 mg PO HS [facility] Last Admin: 08/19/16 22:45 Dose: 50 mg Physical Exam - Head Exam Head Exam: ATRAUMATIC - Eye Exam Eye Exam: Normal appearance - ENT Exam ENT Exam: Mucous Membranes Dry - Respiratory Exam Respiratory Exam: NORMAL BREATHING PATTERN - Cardiovascular Exam Cardiovascular Exam: +S1, +S2 - GI/Abdominal Exam GI & Abdominal Exam: Normal Bowel Sounds - Extremities Exam Extremities exam: Positive for: pedal edema - Psychiatric Exam Psychiatric exam: Normal Affect, Normal Mood - Skin Skin Exam: Warm Results - Vital Signs Recent Vital Signs: Last Vital Signs Temp 99.1 F 08/20/16 16:08 Pulse 87 08/20/16 16:08 Resp 20 08/20/16 16:08 BP 120/65 08/20/16 16:08 Pulse Ox 98 08/20/16 16:08 - Labs Result Diagrams: 08/20/16 18:00 08/20/16 09:30 Labs: Laboratory Results - last 24 hr 08/19/16 08/19/16 08/19/16 16:51 17:10 19:37 Retic Count Sodium Potassium Chloride Carbon Dioxide Anion Gap BUN Creatinine Est GFR ( Amer) Est GFR (Non-Af Amer) POC Glucose (mg/dL) 113 H Random Glucose Calcium Ferritin 30.3 Total Bilirubin AST ALT Alkaline Phosphatase Troponin I Total Protein Albumin Globulin Albumin/Globulin Ratio Vitamin B12 682 Urine Color Yellow Urine Clarity Clear Urine pH 6.0 Ur Specific [place] 1.018 Urine Protein 30 Urine Glucose (UA) Neg Urine Ketones Negative Urine Blood Negative Urine Nitrate Negative Urine Bilirubin Negative Urine Urobilinogen 0.2-1.0 Ur Leukocyte Esterase Neg Urine RBC (Auto) 4 H Urine Microscopic WBC 2 Ur Squamous Epith Cells 5 Hyaline Casts 0-2 08/19/16 08/19/16 08/20/16 19:38 20:21 09:30 Retic Count Cancelled Sodium 143 Potassium 3.8 Chloride 109 H Carbon Dioxide 26 Anion Gap 12 BUN 18 H Creatinine 0.9 Est GFR ( Amer) > 60 Est GFR (Non-Af Amer) > 60 POC Glucose (mg/dL) Random Glucose 105 Calcium 8.5 Ferritin Total Bilirubin 0.8 AST 92 H D ALT 212 H Alkaline Phosphatase 197 H Troponin I 1.2900 H* 1.4600 H* Total Protein 7.3 Albumin 3.4 L Globulin 3.9 Albumin/Globulin Ratio 0.9 L Vitamin B12 Urine Color Urine Clarity Urine pH Ur Specific [place] Urine Protein Urine Glucose (UA) Urine Ketones Urine Blood Urine Nitrate Urine Bilirubin Urine Urobilinogen Ur Leukocyte Esterase Urine RBC (Auto) Urine Microscopic WBC Ur Squamous Epith Cells Hyaline Casts Assessment & Plan (1) Anemia Assessment and Plan: borderline iron stores; will start Venofer transfusion support f/u FOBT; GI evaluation Status: Acute (2) DVT (deep venous thrombosis) Assessment and Plan: right superficial femoral vein DVT likely provoked from immobility has IVC filter not on anticoagulation given concern for GI bleeding and anemia Status: Acute (3) Thrombocytopenia Assessment and Plan: mild may be immune mediated may have component related to methrotrexate Thank you for this interesting consult. Status: Acute
--- NOTE | 2016-08-20 17:27 | CP.PCM.CON ---
History of Present Illness - History of Present Illness History of Present Illness: 60 yo female with multiple medical problems including PAH, connective tissue tissue disease and past h/o cecal ulcer admitted for progressive fatigue and severe anemia. Patient denies seeing blood in stool or epigastric pain. Patient is on multiple meds including methotrexate, aspirin, and plavix. Review of Systems - Constitutional Constitutional: absent: Chills - EENT Eyes: absent: Blurred Vision Ears: absent: Decreased Hearing Nose/Mouth/Throat: absent: Epistaxis - Cardiovascular Cardiovascular: absent: Chest Pain - Respiratory Respiratory: Dyspnea - Gastrointestinal Gastrointestinal: absent: Abdominal Pain - Genitourinary Genitourinary: absent: Change in Urinary Stream Past Patient History - Infectious Disease Hx of Infectious Diseases: None - Tetanus Immunizations Tetanus Immunization: Unknown - Past Medical History & Family History Past Medical History?: Yes Past Family History: Reviewed and not pertinent - Past Social History Smoking Status: Never Smoked Chewing Tobacco Use: No Alcohol: None Drugs: Denies - CARDIAC Hx Congestive Heart Failure: Yes Hx Hypercholesterolemia: Yes Hx Hypertension: Yes Hx Peripheral Edema: Yes Other/Comment: CAD - PULMONARY Hx Asthma: Yes Hx Chronic Obstructive Pulmonary Disease (COPD): Yes Hx Sleep Apnea: Yes - NEUROLOGICAL Hx Neurological Disorder: Yes HX Cerebrovascular Accident: Yes Hx Seizures: Yes Hx Transient Ischemic Attacks (TIA): Yes - HEENT Hx HEENT Problems: No - RENAL Hx Chronic Kidney Disease: No - ENDOCRINE/METABOLIC Hx Endocrine Disorders: Yes Hx Diabetes Mellitus Type 2: No Hx Systemic Lupus Erythematosus: Yes - HEMATOLOGICAL/ONCOLOGICAL Hx Human Immunodeficiency Virus (HIV): No - INTEGUMENTARY Hx Dermatological Problems: No - MUSCULOSKELETAL/RHEUMATOLOGICAL Hx Arthritis: Yes Hx Falls: No Hx Osteoporosis: Yes Hx Rheumatoid Arthritis: Yes - GASTROINTESTINAL Hx Gastrointestinal Disorders: Yes Hx Gastritis: Yes Hx Ulcer: Yes (Colon) - GENITOURINARY/GYNECOLOGICAL Hx Genitourinary Disorders: Yes Hx Incontinence: Yes - PSYCHIATRIC Hx Anxiety: Yes Hx Depression: Yes Hx Substance Use: No - SURGICAL HISTORY Hx Appendectomy: Yes Hx Coronary Stent: Yes ( [place] [facility] [place] - ANESTHESIA Hx Anesthesia: Yes Hx Anesthesia Reactions: No Hx Malignant Hyperthermia: No Meds Allergies/Adverse Reactions: Allergies Allergy/AdvReac Type Severity Reaction Status Date / Time No Known Allergies Allergy Verified 06/30/16 12:59 - Medications Medications: Current Medications Albuterol Sulfate (Albuterol 0.083% Inhal Lotus (2.5 Mg/3 Ml) Ud) 2.5 mg INH RQ4 PRN PRN Reason: Shortness of Breath Albuterol Sulfate (Albuterol 0.083% Inhal Lotus (2.5 Mg/3 Ml) Ud) 2.5 mg INH RTID [facility] Last Admin: 08/20/16 14:32 Dose: 2.5 mg Alprazolam (Xanax) 0.5 mg PO HS [facility] Last Admin: 08/19/16 22:45 Dose: 0.5 mg Amlodipine Besylate (Norvasc) 5 mg PO DAILY [facility] Last Admin: 08/20/16 09:19 Dose: 5 mg Escitalopram Oxalate (Lexapro) 15 mg PO HS [facility] Last Admin: 08/19/16 22:45 Dose: 15 mg Folic Acid (Folic Acid) 1 mg PO DAILY [facility] Home Med (Ketotifen Fumarate [Zaditor]) 1 drop BOTHEYES Q12H PRN PRN Reason: itchy eyes Home Med (Ropinirole [Requip]) 1 mg PO DAILY [facility] Hydroxychloroquine Sulfate (Plaquenil) 200 mg PO BID [facility] Last Admin: 08/20/16 16:30 Dose: 200 mg Iron Sucrose 200 mg/ Sodium (Chloride) 110 mls @ 110 mls/hr IVPB DAILY [facility] Stop: 08/25/16 17:01 Losartan Potassium (Cozaar) 25 mg PO DAILY [facility] Last Admin: 08/20/16 09:18 Dose: 25 mg Methotrexate (Methotrexate) 10 mg PO QWK [facility] PRN Reason: Protocol Metolazone (Zaroxolyn) 2.5 mg PO DAILY [facility] Last Admin: 08/20/16 09:20 Dose: 2.5 mg Metoprolol Succinate (Toprol Xl) 25 mg PO DAILY [facility] Mirtazapine (Remeron) 30 mg PO HS [facility] Last Admin: 08/19/16 22:46 Dose: 30 mg Ondansetron HCl (Zofran Inj) 4 mg IVP Q4 PRN PRN Reason: Nausea/Vomiting Last Admin: 08/19/16 17:15 Dose: 4 mg Pantoprazole Sodium (Protonix Inj) 40 mg IVP ONCE ONE Stop: 08/20/16 17:11 Pantoprazole Sodium (Protonix Ec Tab) 40 mg PO DAILY [facility] Prednisone (Prednisone Tab) 5 mg PO DAILY [facility] Last Admin: 08/20/16 09:20 Dose: 5 mg Trazodone HCl (Desyrel) 50 mg PO [facility] Last Admin: 08/19/16 22:45 Dose: 50 mg Physical Exam - Head Exam Head Exam: NORMAL INSPECTION - Eye Exam Eye Exam: Normal appearance - ENT Exam ENT Exam: Mucous Membranes Moist - Respiratory Exam Respiratory Exam: Clear to Auscultation Bilateral - Cardiovascular Exam Cardiovascular Exam: REGULAR RHYTHM - GI/Abdominal Exam GI & Abdominal Exam: Normal Bowel Sounds, Soft. absent: Tenderness Results - Vital Signs Recent Vital Signs: Last Vital Signs Temp 99.1 F 08/20/16 16:08 Pulse 87 08/20/16 16:08 Resp 20 08/20/16 16:08 BP 120/65 08/20/16 16:08 Pulse Ox 98 08/20/16 16:08 - Labs Result Diagrams: 08/19/16 11:50 08/20/16 09:30 Labs: Laboratory Results - last 24 hr 08/19/16 08/19/16 08/19/16 16:51 17:10 19:37 Retic Count Sodium Potassium Chloride Carbon Dioxide Anion Gap BUN Creatinine Est GFR ( Amer) Est GFR (Non-Af Amer) POC Glucose (mg/dL) 113 H Random Glucose Calcium Ferritin 30.3 Total Bilirubin AST ALT Alkaline Phosphatase Troponin I Total Protein Albumin Globulin Albumin/Globulin Ratio Vitamin B12 682 Urine Color Yellow Urine Clarity Clear Urine pH 6.0 Ur Specific [place] 1.018 Urine Protein 30 Urine Glucose (UA) Neg Urine Ketones Negative Urine Blood Negative Urine Nitrate Negative Urine Bilirubin Negative Urine Urobilinogen 0.2-1.0 Ur Leukocyte Esterase Neg Urine RBC (Auto) 4 H Urine Microscopic WBC 2 Ur Squamous Epith Cells 5 Hyaline Casts 0-2 08/19/16 08/19/16 08/20/16 19:38 20:21 09:30 Retic Count Cancelled Sodium 143 Potassium 3.8 Chloride 109 H Carbon Dioxide 26 Anion Gap 12 BUN 18 H Creatinine 0.9 Est GFR ( Amer) > 60 Est GFR (Non-Af Amer) > 60 POC Glucose (mg/dL) Random Glucose 105 Calcium 8.5 Ferritin Total Bilirubin 0.8 AST 92 H D ALT 212 H Alkaline Phosphatase 197 H Troponin I 1.2900 H* 1.4600 H* Total Protein 7.3 Albumin 3.4 L Globulin 3.9 Albumin/Globulin Ratio 0.9 L Vitamin B12 Urine Color Urine Clarity Urine pH Ur Specific [place] Urine Protein Urine Glucose (UA) Urine Ketones Urine Blood Urine Nitrate Urine Bilirubin Urine Urobilinogen Ur Leukocyte Esterase Urine RBC (Auto) Urine Microscopic WBC Ur Squamous Epith Cells Hyaline Casts Assessment & Plan - Assessment and Plan (Free Text) Assessment: Severe anemia. No overt bleeding seen. Stool for occult blood ordered . Patient being seen by hematology and w/u was ordered. I added iron level. If endoscopy is necessary will do it though patient is high risk due to multiple comorbities and PAH and therefore we would need a strong indication. LFTs likely due to congestion related to right ventricular dysfunction.
[2016-08-20 18:53] LABS: BASO % 0.2 % (0.0-2.0); EOS % 0.3 % (0.0-4.0); HEMATOCRIT 29.2 % (34.0-47.0); LYMPH # 1.4 K/uL (1.0-4.3); LYMPH % 13.9 % (20.0-40.0); MEAN CORPUSCULAR HEMOGLOBIN 26.1 pg (27.0-31.0); MEAN CORPUSCULAR HGB CONC 31.1 g/dL (33.0-37.0); MEAN PLATELET VOLUME 10.3 fl (7.2-11.7); MONO # 0.9 K/uL (0.0-0.8); MONO % 8.4 % (0.0-10.0); NEUT % 77.2 % (50.0-75.0); NRBC % 13.8 % (0.0-0.0); RED CELL DISTRIBUTION WIDTH 19.1 % (11.5-14.5); WHITE BLOOD COUNT 10.3 K/uL (4.8-10.8)
[2016-08-20 18:57] LABS: MEAN CELL VOLUME 83.8 fl (81.0-99.0); PLATELET COUNT 108 K/uL (130-400)
[2016-08-20 20:58] LABS: EOSINOPHIL 2 % (0-7); LARGE PLATELETS PRESENT; NEUTROPHIL 82 % (42-75); TOTAL CELLS COUNTED 100
[2016-08-20 20:59] LABS: GIANT PLATELETS PRESENT
[2016-08-20 21:02] LABS: NUCLEATED RED BLOOD CELL 15 % (0-0)
--- NOTE | 2016-08-21 08:40 | CP.PCM.PN ---
Subjective - Date & Time of Evaluation Date of Evaluation: 08/21/16 Time of Evaluation: 08:34 - Subjective Subjective: [place] well denies chest pain ,SOB ,dizziness, nausea or palpitations. Hgb up to 9.1. Patient with no active bleeding. Awaiting for ECHO.Troponin improving, elevation most provably due to sever anemia more than due to acute IA. Objective - Vital Signs/Intake and Output Vital Signs (last 24 hours): Temp Pulse Resp BP Pulse Ox 97.7 F 77 18 131/78 96 08/21/16 08:09 08/21/16 08:09 08/21/16 08:09 08/21/16 08:09 08/21/16 08:09 - Medications Medications: Current Medications Albuterol Sulfate (Albuterol 0.083% Inhal Lotus (2.5 Mg/3 Ml) Ud) 2.5 mg INH RQ4 PRN PRN Reason: Shortness of Breath Albuterol Sulfate (Albuterol 0.083% Inhal Lotus (2.5 Mg/3 Ml) Ud) 2.5 mg INH RTID [facility] Last Admin: 08/20/16 19:27 Dose: 2.5 mg Alprazolam (Xanax) 0.5 mg PO HS [facility] Last Admin: 08/20/16 22:43 Dose: 0.5 mg Amlodipine Besylate (Norvasc) 5 mg PO DAILY [facility] Last Admin: 08/20/16 09:19 Dose: 5 mg Escitalopram Oxalate (Lexapro) 15 mg PO HS [facility] Last Admin: 08/20/16 22:41 Dose: 15 mg Folic Acid (Folic Acid) 1 mg PO DAILY [facility] Home Med (Ketotifen Fumarate [Zaditor]) 1 drop BOTHEYES Q12H PRN PRN Reason: itchy eyes Home Med (Ropinirole [Requip]) 1 mg PO DAILY [facility] Hydroxychloroquine Sulfate (Plaquenil) 200 mg PO BID [facility] Last Admin: 08/20/16 16:30 Dose: 200 mg Iron Sucrose 200 mg/ Sodium (Chloride) 110 mls @ 110 mls/hr IVPB DAILY [facility] Stop: 08/25/16 17:01 Last Admin: 08/20/16 18:00 Dose: 110 mls/hr Losartan Potassium (Cozaar) 25 mg PO DAILY [facility] Last Admin: 05/28/17 09:18 Dose: 25 mg Methotrexate (Methotrexate) 10 mg PO QWK [facility] PRN Reason: Protocol Metolazone (Zaroxolyn) 2.5 mg PO DAILY [facility] Last Admin: 08/20/16 09:20 Dose: 2.5 mg Metoprolol Succinate (Toprol Xl) 25 mg PO DAILY [facility] Mirtazapine (Remeron) 30 mg PO HS [facility] Last Admin: 08/20/16 22:41 Dose: 30 mg Ondansetron HCl (Zofran Inj) 4 mg IVP Q4 PRN PRN Reason: Nausea/Vomiting Last Admin: 08/19/16 17:15 Dose: 4 mg Pantoprazole Sodium (Protonix Ec Tab) 40 mg PO DAILY [facility] Prednisone (Prednisone Tab) 5 mg PO DAILY [facility] Last Admin: 08/20/16 09:20 Dose: 5 mg Trazodone HCl (Desyrel) 50 mg PO HS [facility] Last Admin: 08/20/16 22:40 Dose: 50 mg - Labs Labs: 08/20/16 18:00 08/20/16 09:30 PT 12.3 SECONDS (9.6-11.2) H 08/19/16 11:50 INR 1.18 (0.92-1.08) H 08/19/16 11:50 APTT 23.8 SECONDS (23.3-32.5) 08/19/16 11:50 - Constitutional Appears: Well, No Acute Distress - Head Exam Head Exam: ATRAUMATIC, NORMOCEPHALIC - Neck Exam Neck Exam: Normal Inspection - Respiratory Exam Respiratory Exam: Clear to Ausculation Bilateral - Cardiovascular Exam Cardiovascular Exam: REGULAR RHYTHM, Murmur (SM 1/6 [place]) - GI/Abdominal Exam GI & Abdominal Exam: Normal Bowel Sounds - Extremities Exam Extremities Exam: Normal Inspection - Neurological Exam Neurological Exam: Alert, Awake, Oriented x3 - Psychiatric Exam Psychiatric exam: Normal Affect Assessment and Plan - Assessment and Plan (Free Text) Assessment: 1 Sever Anemia work up in progress 2 Old CVA 3 HTN 4 CAD 5 Mild elevation of Troponin PLAN: ECHO Re- start ASA if OK with GI Will follow
[2016-08-21 08:54] LABS: HEMATOCRIT 29.6 % (34.0-47.0); MEAN CELL VOLUME 83.7 fl (81.0-99.0); RED CELL DISTRIBUTION WIDTH 19.7 % (11.5-14.5); WHITE BLOOD COUNT 11.3 K/uL (4.8-10.8)
[2016-08-21 08:59] LABS: ALB/GLOB RATIO 0.8 (1.0-2.1); ALKALINE PHOSPHATASE 203 U/L (38-126); ALT/SGPT 166 U/L (9-52); AST/SGOT 61 U/L (14-36); BILIRUBIN,TOTAL 0.7 mg/dl (0.2-1.3); BLOOD UREA NITROGEN 19 mg/dl (7-17); CALCIUM 8.3 mg/dL (8.4-10.2); CARBON DIOXIDE 28 mmol/L (22-30); CHLORIDE 104 mmol/L (98-107); GFR AFRICAN-AMERICAN > 60; GLUCOSE,RANDOM 85 mg/dL (65-105); POTASSIUM 3.6 MMOL/L (3.6-5.0); SODIUM 139 mmol/l (132-148); TOTAL PROTEIN 7.2 G/DL (6.3-8.2)
[2016-08-21] MEDS: Albuterol 0.083% Inhal Sol (2.5 mg/3 mL) UD INH SCH ×4 (09:00→20:09)
[2016-08-21] MEDS: Pantoprazole 40 mg EC Tab PO SCH (09:49)
[2016-08-21] MEDS: Metoprolol Succinate 25 mg XL Tab PO SCH (09:49)
[2016-08-21] MEDS: metOLazone 2.5 MG TAB PO SCH (09:50)
--- NOTE | 2016-08-21 10:26 | CP.PCM.PN ---
Subjective - Date & Time of Evaluation Date of Evaluation: 08/21/16 Time of Evaluation: 10:00 - Subjective Subjective: No fever denies CP minimal SOB on exertion feels better no abd pain Objective - Vital Signs/Intake and Output Vital Signs (last 24 hours): Temp Pulse Resp BP Pulse Ox 97.7 F 77 18 131/78 96 08/21/16 08:09 08/21/16 09:49 08/21/16 08:09 08/21/16 09:49 08/21/16 08:09 - Medications Medications: Current Medications Albuterol Sulfate (Albuterol 0.083% Inhal Lotus (2.5 Mg/3 Ml) Ud) 2.5 mg INH RQ4 PRN PRN Reason: Shortness of Breath Albuterol Sulfate (Albuterol 0.083% Inhal Lotus (2.5 Mg/3 Ml) Ud) 2.5 mg INH RTID [facility] Last Admin: 08/20/16 19:27 Dose: 2.5 mg Alprazolam (Xanax) 0.5 mg PO HS [facility] Last Admin: 08/20/16 22:43 Dose: 0.5 mg Amlodipine Besylate (Norvasc) 5 mg PO DAILY [facility] Last Admin: 08/21/16 09:44 Dose: 5 mg Escitalopram Oxalate (Lexapro) 15 mg PO HS [facility] Last Admin: 08/20/16 22:41 Dose: 15 mg Folic Acid (Folic Acid) 1 mg PO DAILY [facility] Last Admin: 08/21/16 09:44 Dose: 1 mg Home Med (Ketotifen Fumarate [Zaditor]) 1 drop BOTHEYES Q12H PRN PRN Reason: itchy eyes Home Med (Ropinirole [Requip]) 1 mg PO DAILY [facility] Hydroxychloroquine Sulfate (Plaquenil) 200 mg PO BID [facility] Last Admin: 08/21/16 09:49 Dose: 200 mg Iron Sucrose 200 mg/ Sodium (Chloride) 110 mls @ 110 mls/hr IVPB DAILY [facility] Stop: 08/25/16 17:01 Last Admin: 08/20/16 18:00 Dose: 110 mls/hr Losartan Potassium (Cozaar) 25 mg PO DAILY [facility] Last Admin: 08/21/16 09:43 Dose: 25 mg Methotrexate (Methotrexate) 10 mg PO QWK [facility] PRN Reason: Protocol Metolazone (Zaroxolyn) 2.5 mg PO DAILY [facility] Last Admin: 08/21/16 09:50 Dose: 2.5 mg Metoprolol Succinate (Toprol Xl) 25 mg PO DAILY [facility] Last Admin: 08/21/16 09:49 Dose: 25 mg Mirtazapine (Remeron) 30 mg PO HS [facility] Last Admin: 08/20/16 22:41 Dose: 30 mg Ondansetron HCl (Zofran Inj) 4 mg IVP Q4 PRN PRN Reason: Nausea/Vomiting Last Admin: 08/19/16 17:15 Dose: 4 mg Pantoprazole Sodium (Protonix Ec Tab) 40 mg PO DAILY [facility] Last Admin: 08/21/16 09:49 Dose: 40 mg Prednisone (Prednisone Tab) 5 mg PO DAILY [facility] Last Admin: 08/21/16 09:49 Dose: 5 mg Trazodone HCl (Desyrel) 50 mg PO [facility] Last Admin: 08/20/16 22:40 Dose: 50 mg - Labs Labs: 08/21/16 08:48 08/21/16 08:48 PT 12.3 SECONDS (9.6-11.2) H 08/19/16 11:50 INR 1.18 (0.92-1.08) H 08/19/16 11:50 APTT 23.8 SECONDS (23.3-32.5) 08/19/16 11:50 - Constitutional Appears: No Acute Distress, Chronically Ill - Head Exam Head Exam: NORMAL INSPECTION, NORMOCEPHALIC - Eye Exam Eye Exam: EOMI, Normal appearance Pupil Exam: NORMAL ACCOMODATION - ENT Exam ENT Exam: Mucous Membranes Moist, Normal External Ear Exam - Neck Exam Neck Exam: Full ROM. absent: Meningismus - Respiratory Exam Respiratory Exam: Decreased Breath Sounds, Rhonchi, NORMAL BREATHING PATTERN. absent: Wheezes, Respiratory Distress - Cardiovascular Exam Cardiovascular Exam: REGULAR RHYTHM, +S1, +S2 - Extremities Exam Extremities Exam: Normal Capillary Refill, Pedal Edema. absent: Calf Tenderness , Tenderness - Back Exam Back Exam: Full ROM. absent: CVA tenderness (L), CVA tenderness (R), paraspinal tenderness, vertebral tenderness - Neurological Exam Neurological Exam: Alert, Awake, CN II-XII Intact - Psychiatric Exam Psychiatric exam: Normal Affect, Normal Mood - Skin Skin Exam: Dry, Normal Color, Warm Assessment and Plan (1) Symptomatic anemia Status: Acute (2) Elevated troponin Status: Acute (3) CAD (coronary artery disease) Status: Chronic (4) COPD (chronic obstructive pulmonary disease) Status: Chronic (5) Chronic congestive heart failure Status: Chronic (6) History of CVA with residual deficit Status: Chronic (7) DVT (deep venous thrombosis) Status: Acute (8) 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 In the ED Hgb found to be 6.8. (1) Symptomatic anemia , prob acute on chronic , r/o blood loss from GI Status: Acute Transfuseb 2 units PRBC GI consult Hematology consult Protonix daily Pt denies melena Stool guaiac: no BM yet Hbg now 9.2 post transfusion from 6.8 (2) Elevated troponin prob sec to demand ischemia due to anemia Status: Acute cardio consulted- discussed case with dr Dre poole to hold off on anti platelets ECHO cont BB and ARB (3) CAD (coronary artery disease) Status: Chronic as above (4) COPD (chronic obstructive pulmonary disease) Status: Chronic stable Duoneb prn cont Oxygen 3 liters p[er NC (5) Chronic congestive heart failure, diastolic dysfunction Status: Chronic Echo Feb 2016 : normal EF severe pulm HTN cont Calcium channel susana (6) History of CVA with residual deficit Status: Chronic (7) DVT (deep venous thrombosis) right LE Status: Acute Doppler US of right LE : partial nonocclussive thrombus femoral vein no antyicoag sec to severe anemi pt has an IVC filter - placed 3 yrs ago ( confirmed on CT ) (8) 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 Depression cont lexapro 11. Abn LFT likely due to Passive Liver congestion from CHF DVT proph - no anticoag sec to poss GI bleed no SCD due to DVT in LE pt has IVC filter
[2016-08-21 16:08] LABS: FOLATE 17.9 ng/mL
--- NOTE | 2016-08-21 16:25 | CP.PCM.PN ---
Subjective - Date & Time of Evaluation Date of Evaluation: 08/21/16 Time of Evaluation: 16:23 - Subjective Subjective: Clinically no evidence of bleeding. Hgb over 9. No bowel movements Objective - Vital Signs/Intake and Output Vital Signs (last 24 hours): Temp Pulse Resp BP Pulse Ox 97.9 F 87 18 126/70 96 08/21/16 12:40 08/21/16 12:40 08/21/16 12:40 08/21/16 12:40 08/21/16 12:40 - Medications Medications: Current Medications Albuterol Sulfate (Albuterol 0.083% Inhal Lotus (2.5 Mg/3 Ml) Ud) 2.5 mg INH RQ4 PRN PRN Reason: Shortness of Breath Albuterol Sulfate (Albuterol 0.083% Inhal Lotus (2.5 Mg/3 Ml) Ud) 2.5 mg INH RTID [facility] Last Admin: 08/21/16 14:11 Dose: 2.5 mg Alprazolam (Xanax) 0.5 mg PO HS [facility] Last Admin: 08/20/16 22:43 Dose: 0.5 mg Amlodipine Besylate (Norvasc) 5 mg PO DAILY [facility] Last Admin: 08/21/16 09:44 Dose: 5 mg Escitalopram Oxalate (Lexapro) 15 mg PO HS [facility] Last Admin: 08/20/16 22:41 Dose: 15 mg Folic Acid (Folic Acid) 1 mg PO DAILY [facility] Last Admin: 08/21/16 09:44 Dose: 1 mg Home Med (Ketotifen Fumarate [Zaditor]) 1 drop BOTHEYES Q12H PRN PRN Reason: itchy eyes Home Med (Ropinirole [Requip]) 1 mg PO DAILY [facility] Hydroxychloroquine Sulfate (Plaquenil) 200 mg PO BID [facility] Last Admin: 08/21/16 09:49 Dose: 200 mg Iron Sucrose 200 mg/ Sodium (Chloride) 110 mls @ 110 mls/hr IVPB DAILY [facility] Stop: 08/25/16 17:01 Last Admin: 08/21/16 10:00 Dose: 110 mls/hr Losartan Potassium (Cozaar) 25 mg PO DAILY [facility] Last Admin: 08/21/16 09:43 Dose: 25 mg Methotrexate (Methotrexate) 10 mg PO QWK [facility] PRN Reason: Protocol Metolazone (Zaroxolyn) 2.5 mg PO DAILY [facility] Last Admin: 08/21/16 09:50 Dose: 2.5 mg Metoprolol Succinate (Toprol Xl) 25 mg PO DAILY [facility] Last Admin: 08/21/16 09:49 Dose: 25 mg Mirtazapine (Remeron) 30 mg PO HS [facility] Last Admin: 08/20/16 22:41 Dose: 30 mg Ondansetron HCl (Zofran Inj) 4 mg IVP Q4 PRN PRN Reason: Nausea/Vomiting Last Admin: 08/19/16 17:15 Dose: 4 mg Pantoprazole Sodium (Protonix Ec Tab) 40 mg PO DAILY [facility] Last Admin: 08/21/16 09:49 Dose: 40 mg Prednisone (Prednisone Tab) 5 mg PO DAILY [facility] Last Admin: 08/21/16 09:49 Dose: 5 mg Trazodone HCl (Desyrel) 50 mg PO HS [facility] Last Admin: 08/20/16 22:40 Dose: 50 mg - Labs Labs: 08/21/16 08:48 08/21/16 08:48 PT 12.3 SECONDS (9.6-11.2) H 08/19/16 11:50 INR 1.18 (0.92-1.08) H 08/19/16 11:50 APTT 23.8 SECONDS (23.3-32.5) 08/19/16 11:50 - Head Exam Head Exam: NORMAL INSPECTION - Eye Exam Eye Exam: Normal appearance - Respiratory Exam Respiratory Exam: Clear to Ausculation Bilateral - Cardiovascular Exam Cardiovascular Exam: REGULAR RHYTHM - GI/Abdominal Exam GI & Abdominal Exam: Soft, Normal Bowel Sounds. absent: Tenderness Assessment and Plan (1) Anemia Assessment & Plan: No overt GI bleed. Iron level is extremely high. Will monitor with you. Status: Acute
--- NOTE | 2016-08-21 16:41 | CP.PCM.PN ---
Subjective - Date & Time of Evaluation Date of Evaluation: 08/21/16 Time of Evaluation: 12:40 - Subjective Subjective: Respiratory Insufficiency Pt awake, no SOB, eating well, Pt's family at bedside.. Objective - Vital Signs/Intake and Output Vital Signs (last 24 hours): Temp Pulse Resp BP Pulse Ox 97.9 F 74 20 116/75 95 08/21/16 16:30 08/21/16 16:30 08/21/16 16:30 08/21/16 16:30 08/21/16 16:30 - Medications Medications: Current Medications Albuterol Sulfate (Albuterol 0.083% Inhal Lotus (2.5 Mg/3 Ml) Ud) 2.5 mg INH RQ4 PRN PRN Reason: Shortness of Breath Albuterol Sulfate (Albuterol 0.083% Inhal Lotus (2.5 Mg/3 Ml) Ud) 2.5 mg INH RTID [facility] Last Admin: 08/21/16 14:11 Dose: 2.5 mg Alprazolam (Xanax) 0.5 mg PO HS [facility] Last Admin: 08/20/16 22:43 Dose: 0.5 mg Amlodipine Besylate (Norvasc) 5 mg PO DAILY [facility] Last Admin: 08/21/16 09:44 Dose: 5 mg Escitalopram Oxalate (Lexapro) 15 mg PO HS [facility] Last Admin: 08/20/16 22:41 Dose: 15 mg Folic Acid (Folic Acid) 1 mg PO DAILY [facility] Last Admin: 08/21/16 09:44 Dose: 1 mg Home Med (Ketotifen Fumarate [Zaditor]) 1 drop BOTHEYES Q12H PRN PRN Reason: itchy eyes Home Med (Ropinirole [Requip]) 1 mg PO DAILY [facility] Hydroxychloroquine Sulfate (Plaquenil) 200 mg PO BID [facility] Last Admin: 08/21/16 09:49 Dose: 200 mg Iron Sucrose 200 mg/ Sodium (Chloride) 110 mls @ 110 mls/hr IVPB DAILY [facility] Stop: 08/25/16 17:01 Last Admin: 08/21/16 10:00 Dose: 110 mls/hr Losartan Potassium (Cozaar) 25 mg PO DAILY [facility] Last Admin: 08/21/16 09:43 Dose: 25 mg Methotrexate (Methotrexate) 10 mg PO QWK [facility] PRN Reason: Protocol Metolazone (Zaroxolyn) 2.5 mg PO DAILY [facility] Last Admin: 08/21/16 09:50 Dose: 2.5 mg Metoprolol Succinate (Toprol Xl) 25 mg PO DAILY [facility] Last Admin: 08/21/16 09:49 Dose: 25 mg Mirtazapine (Remeron) 30 mg PO HS [facility] Last Admin: 08/20/16 22:41 Dose: 30 mg Ondansetron HCl (Zofran Inj) 4 mg IVP Q4 PRN PRN Reason: Nausea/Vomiting Last Admin: 08/19/16 17:15 Dose: 4 mg Pantoprazole Sodium (Protonix Ec Tab) 40 mg PO DAILY [facility] Last Admin: 08/21/16 09:49 Dose: 40 mg Prednisone (Prednisone Tab) 5 mg PO DAILY [facility] Last Admin: 08/21/16 09:49 Dose: 5 mg Trazodone HCl (Desyrel) 50 mg PO HS [facility] Last Admin: 08/20/16 22:40 Dose: 50 mg - Labs Labs: 08/21/16 08:48 08/21/16 08:48 PT 12.3 SECONDS (9.6-11.2) H 08/19/16 11:50 INR 1.18 (0.92-1.08) H 08/19/16 11:50 APTT 23.8 SECONDS (23.3-32.5) 08/19/16 11:50 - Constitutional Appears: No Acute Distress, Chronically Ill - Head Exam Head Exam: NORMAL INSPECTION - Eye Exam Eye Exam: PERRL - ENT Exam ENT Exam: Normal Oropharynx - Neck Exam Neck Exam: Normal Inspection - Respiratory Exam Respiratory Exam: Decreased Breath Sounds (at bases) - Cardiovascular Exam Cardiovascular Exam: REGULAR RHYTHM, Murmur (systolic 1/6 LSB) - GI/Abdominal Exam GI & Abdominal Exam: Soft, Normal Bowel Sounds - Extremities Exam Extremities Exam: Tenderness (Hands, knees, R calf.) Additional comments: Hands fingers swan neck deformity, ulnar deviation. - Back Exam Back Exam: NORMAL INSPECTION - Neurological Exam Neurological Exam: Alert, Oriented x3 Additional comments: Mild left hemiparesis, speech less slurry. - Psychiatric Exam Psychiatric exam: Anxious, Depressed - Skin Skin Exam: Warm Assessment and Plan (1) Respiratory insufficiency Status: Acute (2) Pulmonary artery hypertension Status: Acute (3) COPD (chronic obstructive pulmonary disease) Status: Chronic (4) Dvt femoral (deep venous thrombosis) Status: Acute (5) OLIVIA (obstructive sleep apnea) Status: Chronic (6) CHF (congestive heart failure) Status: Chronic - Assessment and Plan (Free Text) Plan: Continue with Lasix, nebulizer and rest of Tx.
--- NOTE | 2016-08-21 20:53 | CP.PCM.PN ---
Subjective - Date & Time of Evaluation Date of Evaluation: 08/21/16 Time of Evaluation: 18:45 - Subjective Subjective: Feeling better Objective - Vital Signs/Intake and Output Vital Signs (last 24 hours): Temp Pulse Resp BP Pulse Ox 98.7 F 71 18 134/70 96 08/21/16 20:10 08/21/16 20:10 08/21/16 20:10 08/21/16 20:10 08/21/16 20:10 - Medications Medications: Current Medications Albuterol Sulfate (Albuterol 0.083% Inhal Lotus (2.5 Mg/3 Ml) Ud) 2.5 mg INH RQ4 PRN PRN Reason: Shortness of Breath Albuterol Sulfate (Albuterol 0.083% Inhal Lotus (2.5 Mg/3 Ml) Ud) 2.5 mg INH RTID [facility] Last Admin: 08/21/16 20:09 Dose: 2.5 mg Alprazolam (Xanax) 0.5 mg PO HS [facility] Last Admin: 08/20/16 22:43 Dose: 0.5 mg Amlodipine Besylate (Norvasc) 5 mg PO DAILY [facility] Last Admin: 08/21/16 09:44 Dose: 5 mg Escitalopram Oxalate (Lexapro) 15 mg PO HS [facility] Last Admin: 08/20/16 22:41 Dose: 15 mg Folic Acid (Folic Acid) 1 mg PO DAILY [facility] Last Admin: 08/21/16 09:44 Dose: 1 mg Home Med (Ketotifen Fumarate [Zaditor]) 1 drop BOTHEYES Q12H PRN PRN Reason: itchy eyes Home Med (Ropinirole [Requip]) 1 mg PO DAILY [facility] Hydroxychloroquine Sulfate (Plaquenil) 200 mg PO BID [facility] Last Admin: 08/21/16 16:44 Dose: 200 mg Iron Sucrose 200 mg/ Sodium (Chloride) 110 mls @ 110 mls/hr IVPB DAILY [facility] Stop: 08/25/16 17:01 Last Admin: 08/21/16 10:00 Dose: 110 mls/hr Losartan Potassium (Cozaar) 25 mg PO DAILY [facility] Last Admin: 08/21/16 09:43 Dose: 25 mg Methotrexate (Methotrexate) 10 mg PO QWK [facility] PRN Reason: Protocol Metolazone (Zaroxolyn) 2.5 mg PO DAILY [facility] Last Admin: 08/21/16 09:50 Dose: 2.5 mg Metoprolol Succinate (Toprol Xl) 25 mg PO DAILY [facility] Last Admin: 08/21/16 09:49 Dose: 25 mg Mirtazapine (Remeron) 30 mg PO HS [facility] Last Admin: 08/20/16 22:41 Dose: 30 mg Ondansetron HCl (Zofran Inj) 4 mg IVP Q4 PRN PRN Reason: Nausea/Vomiting Last Admin: 08/19/16 17:15 Dose: 4 mg Pantoprazole Sodium (Protonix Ec Tab) 40 mg PO DAILY [facility] Last Admin: 08/21/16 09:49 Dose: 40 mg Prednisone (Prednisone Tab) 5 mg PO DAILY [facility] Last Admin: 08/21/16 09:49 Dose: 5 mg Trazodone HCl (Desyrel) 50 mg PO HS [facility] Last Admin: 08/20/16 22:40 Dose: 50 mg - Labs Labs: 08/21/16 08:48 08/21/16 08:48 PT 12.3 SECONDS (9.6-11.2) H 08/19/16 11:50 INR 1.18 (0.92-1.08) H 08/19/16 11:50 APTT 23.8 SECONDS (23.3-32.5) 08/19/16 11:50 - Head Exam Head Exam: ATRAUMATIC - Eye Exam Eye Exam: Normal appearance - ENT Exam ENT Exam: Mucous Membranes Dry - Respiratory Exam Respiratory Exam: NORMAL BREATHING PATTERN - Cardiovascular Exam Cardiovascular Exam: +S1, +S2 - GI/Abdominal Exam GI & Abdominal Exam: Normal Bowel Sounds - Extremities Exam Extremities Exam: Pedal Edema Assessment and Plan (1) Anemia Assessment & Plan: iron deficiency (borderline low ferritin) s/p PRBC transfusion, on Venofer stool guaiac positive in ER; GI f/u Status: Acute (2) DVT (deep venous thrombosis) Assessment & Plan: has IVC filter given stool guaiac positive and severe anemia, the patient has not received anticoagulation Status: Acute (3) Thrombocytopenia Assessment & Plan: may be immune mediated mild, no intervention s/p splenectomy in the past. Status: Acute
[2016-08-22] MEDS: Albuterol 0.083% Inhal Sol (2.5 mg/3 mL) UD INH SCH ×3 (07:40→19:10)
[2016-08-22] MEDS: Pantoprazole 40 mg EC Tab PO SCH (08:44)
[2016-08-22] MEDS: Metoprolol Succinate 25 mg XL Tab PO SCH (08:45)
[2016-08-22] MEDS: metOLazone 2.5 MG TAB PO SCH (08:45)
[2016-08-22 10:33] LABS: ALB/GLOB RATIO 0.9 (1.0-2.1); ALKALINE PHOSPHATASE 180 U/L (38-126); ALT/SGPT 143 U/L (9-52); AST/SGOT 54 U/L (14-36); BILIRUBIN,TOTAL 0.6 mg/dl (0.2-1.3); BLOOD UREA NITROGEN 21 mg/dl (7-17); CALCIUM 8.7 mg/dL (8.4-10.2); CARBON DIOXIDE 28 mmol/L (22-30); CHLORIDE 102 mmol/L (98-107); GFR AFRICAN-AMERICAN > 60; GLUCOSE,RANDOM 84 mg/dL (65-105); HEMATOCRIT 32.5 % (34.0-47.0); MEAN CELL VOLUME 86.1 fl (81.0-99.0); MEAN CORPUSCULAR HEMOGLOBIN 25.9 pg (27.0-31.0); MEAN CORPUSCULAR HGB CONC 30.1 g/dL (33.0-37.0); POTASSIUM 3.9 MMOL/L (3.6-5.0); RED CELL DISTRIBUTION WIDTH 19.5 % (11.5-14.5); SODIUM 140 mmol/l (132-148); TOTAL PROTEIN 7.8 G/DL (6.3-8.2); WHITE BLOOD COUNT 13.1 K/uL (4.8-10.8)
--- NOTE | 2016-08-22 14:41 | CP.PCM.PN ---
Subjective - Date & Time of Evaluation Date of Evaluation: 08/22/16 Time of Evaluation: 11:30 - Subjective Subjective: No fever SOB on exertion - but pt states this is her baseline no CP no cough no abd pain feels better and no longer weak Objective - Vital Signs/Intake and Output Vital Signs (last 24 hours): Temp Pulse Resp BP Pulse Ox 98.4 F 93 H 18 108/68 95 08/22/16 12:18 08/22/16 12:18 08/22/16 12:18 08/22/16 12:18 08/22/16 12:18 - Medications Medications: Current Medications Albuterol Sulfate (Albuterol 0.083% Inhal Lotus (2.5 Mg/3 Ml) Ud) 2.5 mg INH RQ4 PRN PRN Reason: Shortness of Breath Albuterol Sulfate (Albuterol 0.083% Inhal Lotus (2.5 Mg/3 Ml) Ud) 2.5 mg INH RTID [facility] Last Admin: 08/22/16 13:19 Dose: 2.5 mg Alprazolam (Xanax) 0.5 mg PO HS [facility] Last Admin: 08/21/16 21:55 Dose: 0.5 mg Amlodipine Besylate (Norvasc) 5 mg PO DAILY [facility] Last Admin: 08/22/16 09:00 Dose: 5 mg Escitalopram Oxalate (Lexapro) 15 mg PO HS [facility] Last Admin: 08/21/16 21:52 Dose: 15 mg Folic Acid (Folic Acid) 1 mg PO DAILY [facility] Last Admin: 08/22/16 08:44 Dose: 1 mg Home Med (Ketotifen Fumarate [Zaditor]) 1 drop BOTHEYES Q12H PRN PRN Reason: itchy eyes Home Med (Ropinirole [Requip]) 1 mg PO DAILY [facility] Hydroxychloroquine Sulfate (Plaquenil) 200 mg PO BID [facility] Last Admin: 08/22/16 08:44 Dose: 200 mg Iron Sucrose 200 mg/ Sodium (Chloride) 110 mls @ 110 mls/hr IVPB DAILY [facility] Stop: 08/25/16 17:01 Last Admin: 08/22/16 11:12 Dose: 110 mls/hr Losartan Potassium (Cozaar) 25 mg PO DAILY [facility] Last Admin: 08/22/16 08:44 Dose: 25 mg Methotrexate (Methotrexate) 10 mg PO QWK [facility] PRN Reason: Protocol Metolazone (Zaroxolyn) 2.5 mg PO DAILY [facility] Last Admin: 08/22/16 08:45 Dose: 2.5 mg Metoprolol Succinate (Toprol Xl) 25 mg PO DAILY [facility] Last Admin: 08/22/16 08:45 Dose: 25 mg Mirtazapine (Remeron) 30 mg PO HS [facility] Last Admin: 08/21/16 21:52 Dose: 30 mg Ondansetron HCl (Zofran Inj) 4 mg IVP Q4 PRN PRN Reason: Nausea/Vomiting Last Admin: 08/19/16 17:15 Dose: 4 mg Pantoprazole Sodium (Protonix Ec Tab) 40 mg PO DAILY [facility] Last Admin: 08/22/16 08:44 Dose: 40 mg Prednisone (Prednisone Tab) 5 mg PO DAILY [facility] Last Admin: 08/22/16 08:44 Dose: 5 mg Trazodone HCl (Desyrel) 50 mg PO HS [facility] Last Admin: 08/21/16 21:52 Dose: 50 mg - Labs Labs: 08/22/16 10:26 08/22/16 10:26 PT 12.3 SECONDS (9.6-11.2) H 08/19/16 11:50 INR 1.18 (0.92-1.08) H 08/19/16 11:50 APTT 23.8 SECONDS (23.3-32.5) 08/19/16 11:50 - Constitutional Appears: No Acute Distress, Chronically Ill - Head Exam Head Exam: NORMAL INSPECTION, NORMOCEPHALIC - Eye Exam Eye Exam: EOMI, Normal appearance Pupil Exam: NORMAL ACCOMODATION - ENT Exam ENT Exam: Mucous Membranes Moist, Normal External Ear Exam - Neck Exam Neck Exam: Full ROM. absent: Meningismus - Respiratory Exam Respiratory Exam: Decreased Breath Sounds, Rhonchi, NORMAL BREATHING PATTERN. absent: Wheezes, Respiratory Distress - Cardiovascular Exam Cardiovascular Exam: REGULAR RHYTHM, +S1, +S2 - Extremities Exam Extremities Exam: Normal Capillary Refill, Pedal Edema. absent: Calf Tenderness , Tenderness - Back Exam Back Exam: Full ROM. absent: CVA tenderness (L), CVA tenderness (R), paraspinal tenderness, vertebral tenderness - Neurological Exam Neurological Exam: Alert, Awake, CN II-XII Intact - Psychiatric Exam Psychiatric exam: Normal Affect, Normal Mood - Skin Skin Exam: Dry, Normal Color, Warm Assessment and Plan (1) Symptomatic anemia Status: Acute (2) Elevated troponin Status: Acute (3) CAD (coronary artery disease) Status: Chronic (4) COPD (chronic obstructive pulmonary disease) Status: Chronic (5) Chronic congestive heart failure Status: Chronic (6) History of CVA with residual deficit Status: Chronic (7) DVT (deep venous thrombosis) Status: Acute (8) 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 In the ED Hgb found to be 6.8. Also complained of leg pain and dopller US of LE showed partial DVT of RLE. (1) Symptomatic anemia , prob acute on chronic , r/o blood loss from GI Status: Acute Transfused 2 units PRBC GI consulted Hematology consult Protonix daily Pt denies melena Stool guaiac: pending result - specimen sent today Hbg now 9.2 post transfusion from 6.8 (2) Elevated troponin prob sec to demand ischemia due to anemia Status: Acute cardio consulted- discussed case with dr Dre poole to hold off on anti platelets ECHO: pending cont BB and ARB (3) CAD (coronary artery disease) Status: Chronic as above (4) COPD (chronic obstructive pulmonary disease) Status: Chronic stable Duoneb prn cont Oxygen 3 liters p[er NC (5) Chronic congestive heart failure, diastolic dysfunction Status: Chronic Echo Feb 2016 : normal EF severe pulm HTN cont Calcium channel susana (6) History of CVA with residual deficit Status: Chronic (7) DVT (deep venous thrombosis) right LE Status: Acute Doppler US of right LE : partial nonocclussive thrombus femoral vein no anticoag sec to severe anemia hematology consulted pt has an IVC filter - placed 3 yrs ago ( confirmed on CT ) (8) 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 Depression cont lexapro 11. Abn LFT likely due to Passive Liver congestion from CHF DVT proph - no anticoag sec to poss GI bleed no SCD due to DVT in LE pt has IVC filter
--- NOTE | 2016-08-22 17:33 | CP.PCM.PN ---
Subjective - Date & Time of Evaluation Date of Evaluation: 08/22/16 Time of Evaluation: 11:50 - Subjective Subjective: F/U respiratory Insufficiency Pt with no SOB, no chest congestion.. Objective - Vital Signs/Intake and Output Vital Signs (last 24 hours): Temp Pulse Resp BP Pulse Ox 98.8 F 97 H 18 102/68 98 08/22/16 16:03 08/22/16 16:03 08/22/16 16:03 08/22/16 16:03 08/22/16 16:03 - Medications Medications: Current Medications Albuterol Sulfate (Albuterol 0.083% Inhal Lotus (2.5 Mg/3 Ml) Ud) 2.5 mg INH RQ4 PRN PRN Reason: Shortness of Breath Albuterol Sulfate (Albuterol 0.083% Inhal Lotus (2.5 Mg/3 Ml) Ud) 2.5 mg INH RTID [facility] Last Admin: 08/22/16 13:19 Dose: 2.5 mg Alprazolam (Xanax) 0.5 mg PO HS [facility] Last Admin: 08/21/16 21:55 Dose: 0.5 mg Amlodipine Besylate (Norvasc) 5 mg PO DAILY [facility] Last Admin: 08/22/16 09:00 Dose: 5 mg Escitalopram Oxalate (Lexapro) 15 mg PO HS [facility] Last Admin: 08/21/16 21:52 Dose: 15 mg Folic Acid (Folic Acid) 1 mg PO DAILY [facility] Last Admin: 08/22/16 08:44 Dose: 1 mg Home Med (Ketotifen Fumarate [Zaditor]) 1 drop BOTHEYES Q12H PRN PRN Reason: itchy eyes Home Med (Ropinirole [Requip]) 1 mg PO DAILY [facility] Hydroxychloroquine Sulfate (Plaquenil) 200 mg PO BID [facility] Last Admin: 08/22/16 16:24 Dose: 200 mg Iron Sucrose 200 mg/ Sodium (Chloride) 110 mls @ 110 mls/hr IVPB DAILY [facility] Stop: 08/25/16 17:01 Last Admin: 08/22/16 11:12 Dose: 110 mls/hr Losartan Potassium (Cozaar) 25 mg PO DAILY [facility] Last Admin: 08/22/16 08:44 Dose: 25 mg Methotrexate (Methotrexate) 10 mg PO QWK [facility] PRN Reason: Protocol Metolazone (Zaroxolyn) 2.5 mg PO DAILY [facility] Last Admin: 08/22/16 08:45 Dose: 2.5 mg Metoprolol Succinate (Toprol Xl) 25 mg PO DAILY [facility] Last Admin: 08/22/16 08:45 Dose: 25 mg Mirtazapine (Remeron) 30 mg PO HS [facility] Last Admin: 08/21/16 21:52 Dose: 30 mg Ondansetron HCl (Zofran Inj) 4 mg IVP Q4 PRN PRN Reason: Nausea/Vomiting Last Admin: 08/19/16 17:15 Dose: 4 mg Pantoprazole Sodium (Protonix Ec Tab) 40 mg PO DAILY [facility] Last Admin: 08/22/16 08:44 Dose: 40 mg Prednisone (Prednisone Tab) 5 mg PO DAILY [facility] Last Admin: 08/22/16 08:44 Dose: 5 mg Trazodone HCl (Desyrel) 50 mg PO [facility] Last Admin: 08/21/16 21:52 Dose: 50 mg - Labs Labs: 08/22/16 10:26 08/22/16 10:26 PT 12.3 SECONDS (9.6-11.2) H 08/19/16 11:50 INR 1.18 (0.92-1.08) H 08/19/16 11:50 APTT 23.8 SECONDS (23.3-32.5) 08/19/16 11:50 - Constitutional Appears: No Acute Distress, Chronically Ill - Eye Exam Eye Exam: PERRL - ENT Exam ENT Exam: Normal Oropharynx - Neck Exam Neck Exam: Normal Inspection - Respiratory Exam Respiratory Exam: Decreased Breath Sounds (at bases) - Cardiovascular Exam Cardiovascular Exam: REGULAR RHYTHM, Murmur (systolic 1/6 LSB) - GI/Abdominal Exam GI & Abdominal Exam: Soft, Normal Bowel Sounds - Extremities Exam Extremities Exam: Tenderness (Hands, knees, R calf,) Additional comments: Hands fingers swan neck deformity, ulnar deviation. - Back Exam Back Exam: NORMAL INSPECTION - Neurological Exam Neurological Exam: Alert, Oriented x3 Additional comments: Mild L hemiparesis, speech less slurry. - Psychiatric Exam Psychiatric exam: Anxious, Depressed - Skin Skin Exam: Warm Assessment and Plan (1) Respiratory insufficiency Status: Acute (2) Pulmonary artery hypertension Status: Acute (3) COPD (chronic obstructive pulmonary disease) Status: Chronic (4) Dvt femoral (deep venous thrombosis) Status: Acute (5) OLIVIA (obstructive sleep apnea) Status: Chronic (6) CHF (congestive heart failure) Status: Chronic - Assessment and Plan (Free Text) Plan: Continue Nebulizer Tx, Lasix.
--- NOTE | 2016-08-22 17:56 | CP.PCM.PN ---
Subjective - Date & Time of Evaluation Date of Evaluation: 08/22/16 Time of Evaluation: 13:30 - Subjective Subjective: Feeling better Objective - Vital Signs/Intake and Output Vital Signs (last 24 hours): Temp Pulse Resp BP Pulse Ox 98.8 F 97 H 18 102/68 98 08/22/16 16:03 08/22/16 16:03 08/22/16 16:03 08/22/16 16:03 08/22/16 16:03 - Medications Medications: Current Medications Albuterol Sulfate (Albuterol 0.083% Inhal Lotus (2.5 Mg/3 Ml) Ud) 2.5 mg INH RQ4 PRN PRN Reason: Shortness of Breath Albuterol Sulfate (Albuterol 0.083% Inhal Lotus (2.5 Mg/3 Ml) Ud) 2.5 mg INH RTID [facility] Last Admin: 08/22/16 13:19 Dose: 2.5 mg Alprazolam (Xanax) 0.5 mg PO HS [facility] Last Admin: 08/21/16 21:55 Dose: 0.5 mg Amlodipine Besylate (Norvasc) 5 mg PO DAILY [facility] Last Admin: 08/22/16 09:00 Dose: 5 mg Escitalopram Oxalate (Lexapro) 15 mg PO HS [facility] Last Admin: 08/21/16 21:52 Dose: 15 mg Folic Acid (Folic Acid) 1 mg PO DAILY [facility] Last Admin: 08/22/16 08:44 Dose: 1 mg Home Med (Ketotifen Fumarate [Zaditor]) 1 drop BOTHEYES Q12H PRN PRN Reason: itchy eyes Home Med (Ropinirole [Requip]) 1 mg PO DAILY [facility] Hydroxychloroquine Sulfate (Plaquenil) 200 mg PO BID [facility] Last Admin: 08/22/16 16:24 Dose: 200 mg Iron Sucrose 200 mg/ Sodium (Chloride) 110 mls @ 110 mls/hr IVPB DAILY [facility] Stop: 08/25/16 17:01 Last Admin: 08/22/16 11:12 Dose: 110 mls/hr Losartan Potassium (Cozaar) 25 mg PO DAILY [facility] Last Admin: 08/22/16 08:44 Dose: 25 mg Methotrexate (Methotrexate) 10 mg PO QWK [facility] PRN Reason: Protocol Metolazone (Zaroxolyn) 2.5 mg PO DAILY [facility] Last Admin: 08/22/16 08:45 Dose: 2.5 mg Metoprolol Succinate (Toprol Xl) 25 mg PO DAILY [facility] Last Admin: 08/22/16 08:45 Dose: 25 mg Mirtazapine (Remeron) 30 mg PO HS [facility] Last Admin: 08/21/16 21:52 Dose: 30 mg Ondansetron HCl (Zofran Inj) 4 mg IVP Q4 PRN PRN Reason: Nausea/Vomiting Last Admin: 08/19/16 17:15 Dose: 4 mg Pantoprazole Sodium (Protonix Ec Tab) 40 mg PO DAILY [facility] Last Admin: 08/22/16 08:44 Dose: 40 mg Prednisone (Prednisone Tab) 5 mg PO DAILY [facility] Last Admin: 08/22/16 08:44 Dose: 5 mg Trazodone HCl (Desyrel) 50 mg PO HS [facility] Last Admin: 08/21/16 21:52 Dose: 50 mg - Labs Labs: 08/22/16 10:26 08/22/16 10:26 PT 12.3 SECONDS (9.6-11.2) H 08/19/16 11:50 INR 1.18 (0.92-1.08) H 08/19/16 11:50 APTT 23.8 SECONDS (23.3-32.5) 08/19/16 11:50 - Head Exam Head Exam: ATRAUMATIC - Eye Exam Eye Exam: Normal appearance - ENT Exam ENT Exam: Mucous Membranes Dry - Respiratory Exam Respiratory Exam: NORMAL BREATHING PATTERN - Cardiovascular Exam Cardiovascular Exam: +S1, +S2 - GI/Abdominal Exam GI & Abdominal Exam: Normal Bowel Sounds Assessment and Plan (1) Anemia Assessment & Plan: borderline iron stores Guaiac positive; GI f/u s/p PRBC transfusion on Venofer Status: Acute (2) DVT (deep venous thrombosis) Assessment & Plan: has IVC filter likely provoked from limited mobility not an anticoagulation candidate due to guaiac positive stool Status: Acute (3) Thrombocytopenia Assessment & Plan: suspect immune mediated mild, no intervention Status: Acute
[2016-08-23] MEDS: Albuterol 0.083% Inhal Sol (2.5 mg/3 mL) UD INH SCH ×2 (07:33→13:48)
--- NOTE | 2016-08-23 09:03 | CARD ---
APPROVED REPORT EXAM: Two-dimensional and M-mode echocardiogram with Doppler and color Doppler. Other Information Quality : GoodRhythm : NSR INDICATION Non STEMI 2D DIMENSIONS IVSd1.19 (0.7-1.1cm)LVDd3.97 (3.9-5.9cm) LVOT Diameter1.97 (1.8-2.4cm)PWd1.10 (0.7-1.1cm) IVSs1.20 (0.8-1.2cm)LVDs2.73 (2.5-4.0cm) FS (%) 31.1 %PWs1.15 (0.8-1.2cm) M-Mode DIMENSIONS Left Atrium (MM)4.38 (2.5-4.0cm)IVSd0.88 (0.7-1.1cm) Aortic Root3.03 (2.2-3.7cm)LVDd5.74 (4.0-5.6cm) Aortic Cusp Exc.1.62 (1.5-2.0cm)PWd1.00 (0.7-1.1cm) IVSs1.47 cmFS (%) 48 % LVDs3.00 (2.0-3.8cm)PWs1.59 cm Mitral Valve MV E Dypumqes001.7cm/sMV DECEL [id number] A Nskgjfwt40.0cm/s MV [id number]/A ratio3.2MVA (PHT)2.03cm2 TDI E/Lateral E'0.0E/Medial E'0.0 Pulmonary Valve PV Peak Dipjynfp161.9cm/s Tricuspid Valve TR Peak Kqwzmmoj565oy/sRAP [id number] Peak Gr.47mmHg [id number] LEFT VENTRICLE The left ventricle is normal size. There is normal left ventricular wall thickness. Left ventricle systolic function is normal. The Ejection Fraction is 60-65%. There is normal LV segmental wall motion. The left ventricular diastolic function is normal. RIGHT VENTRICLE The right ventricle is normal size. There is normal right ventricular wall thickness. The right ventricular systolic function is normal. ATRIA The left atrium is mildly dilated. The right atrium is mildly dilated. AORTIC VALVE The aortic valve is normal in structure and function. No aortic regurgitation is present. There is no aortic valvular stenosis. MITRAL VALVE The mitral valve leaflets are thickened. There is no evidence of mitral valve prolapse. Peak E velocity was 1.47m/Sec Calculated MVA was 2.0Cm2 Mitral regurgitation is moderate to severe. TRICUSPID VALVE The tricuspid valve is normal in structure. There is moderate to severe tricuspid regurgitation. Right ventricular systolic pressure is estimated at 59 mmHg. There is severe pulmonary hypertension. PULMONIC VALVE The pulmonary valve is normal in structure and function. There is no pulmonic valvular regurgitation. GREAT VESSELS The aortic root is normal in size. The IVC collapses <50% with inspiration. PERICARDIAL EFFUSION The pericardium appears normal. <Conclusion> The left ventricle is normal size. There is normal left ventricular wall thickness. There is normal LV segmental wall motion. Left ventricle systolic function is normal. The Ejection Fraction is 60-65%. The left atrium is mildly dilated. The right atrium is mildly dilated. The mitral valve leaflets are thickened. Peak E velocity was 1.47m/Sec Calculated MVA was 2.0Cm2 Mitral regurgitation is moderate to severe. There is moderate to severe tricuspid regurgitation. There is severe pulmonary hypertension.
[2016-08-23] MEDS: metOLazone 2.5 MG TAB PO SCH (09:47)
[2016-08-23] MEDS: Metoprolol Succinate 25 mg XL Tab PO SCH (09:47)
[2016-08-23] MEDS: Pantoprazole 40 mg EC Tab PO SCH (09:47)
--- NOTE | 2016-08-23 10:18 | CARD ---
APPROVED REPORT EKG Measurement Heart [id number] RI [id number] <Conclusion> Normal sinus rhythm Nonspecific T wave abnormality Abnormal ECG
--- NOTE | 2016-08-23 15:09 | CP.PCM.PN ---
Subjective - Date & Time of Evaluation Date of Evaluation: 08/23/16 Time of Evaluation: 15:00 - Subjective Subjective: Reason for visit: Dyspnea. Interval history: The patient is resting comfortably without chest pain. Her dyspnea has improved but she still has a cough with scant sputum production. She denies fever, chills , nausea or abdominal pain. The patient has improved significantly. Objective - Vital Signs/Intake and Output Vital Signs (last 24 hours): Temp Pulse Resp BP Pulse Ox 98.1 F 94 H 18 116/74 99 08/23/16 12:02 08/23/16 12:02 08/23/16 12:02 08/23/16 12:02 08/23/16 12:02 - Medications Medications: Current Medications Albuterol Sulfate (Albuterol 0.083% Inhal Lotus (2.5 Mg/3 Ml) Ud) 2.5 mg INH RQ4 PRN PRN Reason: Shortness of Breath Albuterol Sulfate (Albuterol 0.083% Inhal Lotus (2.5 Mg/3 Ml) Ud) 2.5 mg INH RTID [facility] Last Admin: 08/23/16 13:48 Dose: 2.5 mg Alprazolam (Xanax) 0.5 mg PO HS [facility] Last Admin: 08/22/16 21:52 Dose: 0.5 mg Amlodipine Besylate (Norvasc) 5 mg PO DAILY [facility] Last Admin: 08/23/16 09:46 Dose: 5 mg Escitalopram Oxalate (Lexapro) 15 mg PO HS [facility] Last Admin: 08/22/16 21:52 Dose: 15 mg Folic Acid (Folic Acid) 1 mg PO DAILY [facility] Last Admin: 08/23/16 09:46 Dose: 1 mg Home Med (Ketotifen Fumarate [Zaditor]) 1 drop BOTHEYES Q12H PRN PRN Reason: itchy eyes Home Med (Ropinirole [Requip]) 1 mg PO DAILY [facility] Hydroxychloroquine Sulfate (Plaquenil) 200 mg PO BID [facility] Last Admin: 08/23/16 09:46 Dose: 200 mg Iron Sucrose 200 mg/ Sodium (Chloride) 110 mls @ 110 mls/hr IVPB DAILY [facility] Stop: 08/25/16 17:01 Last Admin: 08/23/16 14:50 Dose: 110 mls/hr Losartan Potassium (Cozaar) 25 mg PO DAILY [facility] Last Admin: 08/23/16 09:45 Dose: 25 mg Methotrexate (Methotrexate) 10 mg PO QWK [facility] PRN Reason: Protocol Metolazone (Zaroxolyn) 2.5 mg PO DAILY [facility] Last Admin: 08/23/16 09:47 Dose: 2.5 mg Metoprolol Succinate (Toprol Xl) 25 mg PO DAILY [facility] Last Admin: 08/23/16 09:47 Dose: 25 mg Mirtazapine (Remeron) 30 mg PO HS [facility] Last Admin: 08/22/16 21:52 Dose: 30 mg Ondansetron HCl (Zofran Inj) 4 mg IVP Q4 PRN PRN Reason: Nausea/Vomiting Last Admin: 08/19/16 17:15 Dose: 4 mg Pantoprazole Sodium (Protonix Ec Tab) 40 mg PO DAILY [facility] Last Admin: 08/23/16 09:47 Dose: 40 mg Prednisone (Prednisone Tab) 5 mg PO DAILY [facility] Last Admin: 08/23/16 09:46 Dose: 5 mg Trazodone HCl (Desyrel) 50 mg [address] [facility] Last Admin: 08/22/16 21:52 Dose: 50 mg - Labs Labs: 08/22/16 10:26 08/22/16 10:26 PT 12.3 SECONDS (9.6-11.2) H 08/19/16 11:50 INR 1.18 (0.92-1.08) H 08/19/16 11:50 APTT 23.8 SECONDS (23.3-32.5) 08/19/16 11:50 - Constitutional Appears: Well, Non-toxic, No Acute Distress - Head Exam Head Exam: NORMAL INSPECTION, NORMOCEPHALIC - Eye Exam Eye Exam: Normal appearance - ENT Exam ENT Exam: Mucous Membranes Moist - Respiratory Exam Additional comments: Decreased breath sounds with fine wheezes. - Cardiovascular Exam Cardiovascular Exam: REGULAR RHYTHM, +S1, +S2, Murmur - GI/Abdominal Exam GI & Abdominal Exam: Soft - Rectal Exam Rectal Exam: Deferred - Extremities Exam Additional comments: No edema. - Back Exam Back Exam: NORMAL INSPECTION - Neurological Exam Neurological Exam: Alert, Oriented x3 - Psychiatric Exam Psychiatric exam: Normal Affect, Normal Mood - Skin Skin Exam: Normal Color, Warm Assessment and Plan - Assessment and Plan (Free Text) Assessment: NSTEMI Dyspnea Anemia HTN Plan: Continue present medical management Stable for outpatient follow up Will sign off
--- NOTE | 2016-08-23 15:31 | CP.PCM.PN ---
Subjective - Date & Time of Evaluation Date of Evaluation: 08/23/16 Time of Evaluation: 09:40 - Subjective Subjective: F/U Respiratory Insufficiency. Pt breathing better, no SOB, no c/o. Objective - Vital Signs/Intake and Output Vital Signs (last 24 hours): Temp Pulse Resp BP Pulse Ox 98.1 F 94 H 18 116/74 99 08/23/16 12:02 08/23/16 12:02 08/23/16 12:02 08/23/16 12:02 08/23/16 12:02 - Medications Medications: Current Medications Albuterol Sulfate (Albuterol 0.083% Inhal Lotus (2.5 Mg/3 Ml) Ud) 2.5 mg INH RQ4 PRN PRN Reason: Shortness of Breath Albuterol Sulfate (Albuterol 0.083% Inhal Lotus (2.5 Mg/3 Ml) Ud) 2.5 mg INH RTID [facility] Last Admin: 08/23/16 13:48 Dose: 2.5 mg Alprazolam (Xanax) 0.5 mg PO HS [facility] Last Admin: 08/22/16 21:52 Dose: 0.5 mg Amlodipine Besylate (Norvasc) 5 mg PO DAILY [facility] Last Admin: 08/23/16 09:46 Dose: 5 mg Escitalopram Oxalate (Lexapro) 15 mg PO HS [facility] Last Admin: 08/22/16 21:52 Dose: 15 mg Folic Acid (Folic Acid) 1 mg PO DAILY [facility] Last Admin: 08/23/16 09:46 Dose: 1 mg Home Med (Ketotifen Fumarate [Zaditor]) 1 drop BOTHEYES Q12H PRN PRN Reason: itchy eyes Home Med (Ropinirole [Requip]) 1 mg PO DAILY [facility] Hydroxychloroquine Sulfate (Plaquenil) 200 mg PO BID [facility] Last Admin: 08/23/16 09:46 Dose: 200 mg Iron Sucrose 200 mg/ Sodium (Chloride) 110 mls @ 110 mls/hr IVPB DAILY [facility] Stop: 08/25/16 17:01 Last Admin: 08/23/16 14:50 Dose: 110 mls/hr Losartan Potassium (Cozaar) 25 mg PO DAILY [facility] Last Admin: 08/23/16 09:45 Dose: 25 mg Methotrexate (Methotrexate) 10 mg PO QWK [facility] PRN Reason: Protocol Metolazone (Zaroxolyn) 2.5 mg PO DAILY [facility] Last Admin: 08/23/16 09:47 Dose: 2.5 mg Metoprolol Succinate (Toprol Xl) 25 mg PO DAILY [facility] Last Admin: 08/23/16 09:47 Dose: 25 mg Mirtazapine (Remeron) 30 mg PO HS [facility] Last Admin: 08/22/16 21:52 Dose: 30 mg Ondansetron HCl (Zofran Inj) 4 mg IVP Q4 PRN PRN Reason: Nausea/Vomiting Last Admin: 08/19/16 17:15 Dose: 4 mg Pantoprazole Sodium (Protonix Ec Tab) 40 mg PO DAILY [facility] Last Admin: 08/23/16 09:47 Dose: 40 mg Prednisone (Prednisone Tab) 5 mg PO DAILY [facility] Last Admin: 08/23/16 09:46 Dose: 5 mg Trazodone HCl (Desyrel) 50 mg PO HS [facility] Last Admin: 08/22/16 21:52 Dose: 50 mg - Labs Labs: 08/22/16 10:26 08/22/16 10:26 PT 12.3 SECONDS (9.6-11.2) H 08/19/16 11:50 INR 1.18 (0.92-1.08) H 08/19/16 11:50 APTT 23.8 SECONDS (23.3-32.5) 08/19/16 11:50 - Constitutional Appears: No Acute Distress, Chronically Ill - Head Exam Head Exam: NORMAL INSPECTION - Eye Exam Eye Exam: PERRL - ENT Exam ENT Exam: Normal Oropharynx - Neck Exam Neck Exam: Normal Inspection - Respiratory Exam Respiratory Exam: Decreased Breath Sounds (at bases) Additional comments: Increased air entrance. - Cardiovascular Exam Cardiovascular Exam: REGULAR RHYTHM, Murmur (systolic1/6 LSB) - GI/Abdominal Exam GI & Abdominal Exam: Soft, Normal Bowel Sounds - Extremities Exam Extremities Exam: Tenderness (Hands, knees, R calf) - Back Exam Back Exam: NORMAL INSPECTION - Neurological Exam Neurological Exam: Alert, Oriented x3 Additional comments: Mild hemiparesis, speech slightly slurry - Psychiatric Exam Psychiatric exam: Anxious, Depressed - Skin Skin Exam: Warm Assessment and Plan (1) Respiratory insufficiency Status: Resolved (2) Pulmonary artery hypertension Status: Acute (3) COPD (chronic obstructive pulmonary disease) Status: Chronic (4) Dvt femoral (deep venous thrombosis) Status: Acute (5) OLIVIA (obstructive sleep apnea) Status: Chronic (6) CHF (congestive heart failure) Status: Chronic - Assessment and Plan (Free Text) Plan: Pulmonary clear to be discharged.
[2016-08-23 16:20] VITALS: BP 105/63; PULSE 71; RESP 20; TEMP 97.6; O2SAT 94
--- NOTE | 2016-08-23 16:46 | CP.PCM.DIS ---
Provider - Provider Date of Admission: 08/19/16 14:28 Attending physician: Raquel Salas DO Primary care physician: Dr. Albright Consults: Pulmonary consult cardiology consult hematology consult Gastroenterology consult Time Spent in preparation of Discharge (in minutes): 20 Hospital Course - Lab Results Lab Results: Most Recent Lab Values WBC 13.1 K/uL (4.8-10.8) H 08/22/16 10:26 RBC 3.77 Mil/uL (3.80-5.20) L 08/22/16 10:26 Hgb 9.8 g/dL (12.0-16.0) L 08/22/16 10:26 Hct 32.5 % (34.0-47.0) L 08/22/16 10:26 MCV 86.1 fl (81.0-99.0) D 08/22/16 10:26 MCH 25.9 pg (27.0-31.0) L 08/22/16 10:26 MCHC 30.1 g/dL (33.0-37.0) L 08/22/16 10:26 RDW 19.5 % (11.5-14.5) H 08/22/16 10:26 Plt Count 110 K/uL (130-400) L 08/22/16 10:26 MPV 10.3 fl (7.2-11.7) 08/20/16 18:00 Neut % (Auto) 77.2 % (50.0-75.0) H 08/20/16 18:00 Lymph % (Auto) 13.9 % (20.0-40.0) L 08/20/16 18:00 [place] % (Auto) 8.4 % (0.0-10.0) 08/20/16 18:00 Eos % (Auto) 0.3 % (0.0-4.0) 08/20/16 18:00 Baso % (Auto) 0.2 % (0.0-2.0) 08/20/16 18:00 Neut # 8.0 K/uL (1.8-7.0) H 08/20/16 18:00 Lymph # 1.4 K/uL (1.0-4.3) 08/20/16 18:00 [place] # 0.9 K/uL (0.0-0.8) H 08/20/16 18:00 Eos # 0.0 K/uL (0.0-0.7) 08/20/16 18:00 Baso # 0.0 K/uL (0.0-0.2) 08/20/16 18:00 Neutrophils % (Manual) 82 % (42-75) H 08/20/16 18:00 Lymphocytes % (Manual) 10 % (20-50) L 08/20/16 18:00 Monocytes % (Manual) 6 % (0-10) 08/20/16 18:00 Eosinophils % (Manual) 2 % (0-7) 08/20/16 18:00 Nucleated RBC % 15 % (0-0) H 08/20/16 18:00 Platelet Estimate Slightly decreased (NORMAL) L 08/20/16 18:00 Large Platelets Present 08/20/16 18:00 Giant Platelets Present 08/20/16 18:00 Hypochromasia (manual) Slight 08/20/16 18:00 Poikilocytosis (manual Slight 08/20/16 18:00 Anisocytosis (manual) Slight 08/20/16 18:00 Target Cells Slight 08/20/16 18:00 Ovalocytes Slight 08/20/16 18:00 Retic Count 3.1 % (0.5-1.5) H 08/21/16 05:55 PT 12.3 SECONDS (9.6-11.2) H 08/19/16 11:50 INR 1.18 (0.92-1.08) H 08/19/16 11:50 APTT 23.8 SECONDS (23.3-32.5) 08/19/16 11:50 D-Dimer, Quantitative 4.82 mg/L FEU (0-0.50) H 08/19/16 11:50 Sodium 140 mmol/l (132-148) 08/22/16 10:26 Potassium 3.9 MMOL/L (3.6-5.0) 08/22/16 10:26 Chloride 102 mmol/L (98-107) 08/22/16 10:26 Carbon Dioxide 28 mmol/L (22-30) 08/22/16 10:26 Anion Gap 13 (10-20) 08/22/16 10:26 BUN 21 mg/dl (7-17) H 08/22/16 10:26 Creatinine 0.9 mg/dL (0.7-1.2) 08/22/16 10:26 Est GFR ( Amer) > 60 08/22/16 10:26 Est GFR (Non-Af Amer) > 60 08/22/16 10:26 POC Glucose (mg/dL) 113 mg/dL (65-110) H 08/19/16 16:51 Random Glucose 84 mg/dL (65-105) 08/22/16 10:26 Calcium 8.7 mg/dL (8.4-10.2) 08/22/16 10:26 Iron 1044 ug/dL (37-170) H 08/20/16 20:30 TIBC 366 ug/dL (250-450) 08/20/16 20:30 % Saturation 285.25 % (20-55) H 08/20/16 20:30 Ferritin 30.3 ng/mL 08/19/16 19:37 Total Bilirubin 0.6 mg/dl (0.2-1.3) 08/22/16 10:26 AST 54 U/L (14-36) H 08/22/16 10:26 ALT 143 U/L (9-52) H 08/22/16 10:26 Alkaline Phosphatase 180 U/L (38-126) H 08/22/16 10:26 Troponin I 1.1100 ng/mL (0.00-0.120) H* 08/20/16 17:00 Total Protein 7.8 G/DL (6.3-8.2) 08/22/16 10:26 Albumin 3.6 g/dL (3.5-5.0) 08/22/16 10:26 Globulin 4.2 gm/dL (2.2-3.9) H 08/22/16 10:26 Albumin/Globulin Ratio 0.9 (1.0-2.1) L 08/22/16 10:26 Vitamin B12 682 pg/mL (239-931) 08/19/16 19:37 Folate 17.9 ng/mL 08/19/16 19:37 Urine Color Yellow (YELLOW) 08/19/16 17:10 Urine Clarity Clear (Clear) 08/19/16 17:10 Urine pH 6.0 (5.0-8.0) 08/19/16 17:10 Ur Specific [place] 1.018 (1.003-1.030) 08/19/16 17:10 Urine Protein 30 mg/dL (NEGATIVE) 08/19/16 17:10 Urine Glucose (UA) Neg mg/dL (Normal) 08/19/16 17:10 Urine Ketones Negative mg/dL (NEGATIVE) 08/19/16 17:10 Urine Blood Negative (NEGATIVE) 08/19/16 17:10 Urine Nitrate Negative (NEGATIVE) 08/19/16 17:10 Urine Bilirubin Negative (NEGATIVE) 08/19/16 17:10 Urine Urobilinogen 0.2-1.0 mg/dL (0.2-1.0) 08/19/16 17:10 Ur Leukocyte Esterase Neg Marcel[place]/uL (Negative) 08/19/16 17:10 Urine RBC (Auto) 4 /hpf (0-3) H 08/19/16 17:10 Urine Microscopic WBC 2 /hpf (0-5) 08/19/16 17:10 Ur Squamous Epith Cells 5 /hpf (0-5) 08/19/16 17:10 Hyaline Casts 0-2 /hpf (0-2) 08/19/16 17:10 Stool Occult Blood Positive (NEGATIVE) H 08/21/16 16:57 Hepatitis A IgM Ab Negative (NEGATIVE) 08/19/16 19:37 Hep Bs Antigen Negative (NEGATIVE) 08/19/16 19:37 Hep B Core IgM Ab Negative (NEGATIVE) 08/19/16 19:37 Hepatitis C Antibody Negative (NEGATIVE) 08/19/16 19:37 HIV 1&2 Antibody Screen Negative (NEGATIVE) 08/19/16 20:27 Blood Type B POSITIVE 08/19/16 13:15 Antibody Screen Negative 08/19/16 13:15 Crossmatch See Detail 08/19/16 13:15 BBK History Checked Patient has bt 08/19/16 13:15 - Hospital Course Hospital Course: 60 year old female with past medical history of respiratory insufficiency 2/2 COPD, OLIVAI, severe PAH with connective tissue dz, SLE, RA, s/p splenectomy with chronic thrombocytopenia, hx CVA, CAD, presented to ER with a 4 day history of moderate to severe worsening fatigue associated with shortness of breath. Patient stated she also had no appetite . In the ER, patient was found to have Hemoglobin of 6.7, but denies any recent BRBPR, or melena. Scant blood on occult. Troponins found to be elevated, EKG with some T wave flattening and inversions likely due to demand ischemia. No active CP. Patient also had elevated transaminases Elevated dimer + hypercoagulable state 2/2 SLE. She was also found to have mild vascular congestion likely secondary to her severe pulmonary hypertension, Lasix 40 IVP given. Duplex lower extremities also showed DVT. Patient admitted t to telemetry for symptomatic anemia, decompensated pulmonary hypertension, rule out PE, DVT, Type II DC, eval for lower GI bleed. She was transfused with 2 units PRBC with hgb post transfusion 9 .8n Anemia work up showed very high levels odf iron stores so venofer and iron supplements were discontinued. Hematology and Gi were evaluated but recommended no further work up at present. Cardiology was consulted for elevated troponin and recommended addressing anemia since the troponin elevation is most likely related to demand ischemia Venoius doppler LLE showed partial obstructing DVT.Anticoagulation is contraindicated due to anemia and occult positive.CTA showed CTA chest showed no PE.Patient has IVC filter in place so no need for further management Pulmonary was consulted for further help with management of her dyspnea At present back at her baseline.will discharge patient home 1. Symptomatic anemia , prob acute on chronic ,with possible GI bleed ( not active) Acute Transfused 2 units PRBC GI consulted Hematology consulted Protonix daily Pt denies melena Stool guaiac- positive. Buyt patient has no active bleeding and hgb is stabl eat 9.8 after transfusion so Gi recommended colonoscopy or EGD Anemia work up showed very high iron levels, so venofer and iron supplements discontinued 2. Elevated troponin prob sec to demand ischemia due to anemia Acute cardio consulted- discussed case with Dr Dre poole to hold off on anti platelets, but can restart ASA 81 mg po QD ECHO: showed normal EF cont BB and ARB 3. CAD (coronary artery disease) Chronic continue ASa, statin,ARB 4 COPD (chronic obstructive pulmonary disease) Status: Chronic stable Duoneb prn cont Oxygen per NC on Prednisone 5 mg po daily 5. Chronic congestive heart failure, diastolic dysfunction Chronic Echo Feb 2016 : normal EF severe pulm HTN cont Calcium channel marisol 6. History of CVA with residual deficit Chronic 7. DVT (deep venous thrombosis) right LE Acute Doppler US of right LE : partial nonocclussive thrombus femoral vein no anticoag sec to severe anemia hematology consulted pt has an IVC filter - placed 3 yrs ago ( confirmed on CT ) 8. Pulmonary artery hypertension associated with connective tissue disease, SLE and RA Chronic Pulm and Cardio consult cont Ca Channel marisol Lasix prn may benefit with Right heart Cath however pt refuses any aggressive intervention 9. Rheumatoid arthritis pt on Methrotrexate , Plaquenil and Prednisone 10. Depression cont lexapro 11. Abn LFT likely due to Passive Liver congestion from CHF r Discharge Exam - Head Exam Head Exam: NORMAL INSPECTION, NORMOCEPHALIC Additional comments: chronically ill, elderly looking female - Eye Exam Eye Exam: EOMI, PERRL - ENT Exam ENT Exam: Mucous Membranes Moist, Normal Exam - Neck Exam Neck exam: Full Rom, Normal Inspection - Respiratory Exam Respiratory Exam: Clear to PA & Lateral, Prolonged Expiratory Phase, Rhonchi. absent: Wheezes - Cardiovascular Exam Cardiovascular Exam: REGULAR RHYTHM, +S1, +S2. absent: JVD - GI/Abdominal Exam GI & Abdominal Exam: Normal Bowel Sounds, Soft. absent: Distended, Guarding, Rebound, Tenderness - Rectal Exam Rectal Exam: Deferred - Extremities Exam Extremities exam: normal capillary refill, normal inspection, pedal pulses present Additional comments: bilateral hands ulnar deviation with swan deformities - Back Exam Additional comments: kyphosis - Neurological Exam Neurological exam: Alert, CN II-XII Intact Additional comments: slurred speech left side weakness - Psychiatric Exam Psychiatric exam: Normal Affect - Skin Skin Exam: Dry, Intact, Normal Color, Warm Discharge Plan - Discharge Medications Prescriptions: Metoprolol Succinate [Toprol XL] 25 mg PO DAILY #30 tab - Follow Up Plan Condition: STABLE Disposition: HOME/ ROUTINE Patient education suggested?: Yes Instructions: Anemia (DC) Referrals: Deniz Albright MD [Staff Provider] - Clinical Quality Measures - CQM - VTE Did patient receive overlap therapy during hosptialization?: No If no, please select a reason why?: Risk of Bleeding Is patient being discharged on overlap therapy?: No If no, please select a reason why:: Risk of Bleeding - CQM - Heart Failure Ejection Fraction: 40 % or Greater Left Ventricular Function to be assessed after discharge: No Beta-Marisol Prescribed: Metoprolol Succinate Angiotensin II Receptor Marisol Prescribed: Yes Will be discharged to: Home Follow Up Date (must be within 7 days from discharge): 07/30/17 Follow Up Time: 09:00
[2016-08-24 16:21] LABS: PHOSPHATIDYLSERINE AB IGM <25 U/mL (<25)
[2016-08-24 21:51] LABS: CARDIOLIPIN AB (IGA) <11 APL (<=11)
[2016-08-25 04:45] LABS: B2 GLYCOPROTEIN I AB(IGA) <9 SAU (<=20); B2 GLYCOPROTEIN I AB(IGG) <9 SGU (<=20); B2 GLYCOPROTEIN I AB(IGM) <9 SMU (<=20); PHOSPHATIDYLSERINE AB IGA <20 U/mL (<20)
== END 2016-08-23 17:30 | disposition home or self-care (01) | DRG 574 ==
LOC: H.ER 11:01 → H.ERHOLD 14:28 → H.TEL 21:04
PROVIDERS: ADMIT Student in an Organized Health Care Education/Training Program; ATTEND Student in an Organized Health Care Education/Training Program
PROC: 30233N1 Transfusion of Nonautologous Red Blood Cells into Peripheral Vein, Percutaneous Approach (ICD-10-PCS; principal; 2016-08-20)
DX: D50.9 Iron deficiency anemia, unspecified (principal); I50.32 Chronic diastolic (congestive) heart failure; D68.69 Other thrombophilia; I82.411 Acute embolism and thrombosis of right femoral vein; I11.0 Hypertensive heart disease with heart failure; I27.2 Other secondary pulmonary hypertension; D69.59 Other secondary thrombocytopenia; M32.9 Systemic lupus erythematosus, unspecified; J44.9 Chronic obstructive pulmonary disease, unspecified; I69.354 Hemiplegia and hemiparesis following cerebral infarction affecting left non-dominant side; E78.00 Pure hypercholesterolemia, unspecified; E78.5 Hyperlipidemia, unspecified; F32.9 Major depressive disorder, single episode, unspecified; F41.9 Anxiety disorder, unspecified; G47.33 Obstructive sleep apnea (adult) (pediatric); I25.10 Atherosclerotic heart disease of native coronary artery without angina pectoris; J45.909 Unspecified asthma, uncomplicated; K76.1 Chronic passive congestion of liver; M06.9 Rheumatoid arthritis, unspecified; Z95.5 Presence of coronary angioplasty implant and graft; M35.9 Systemic involvement of connective tissue, unspecified; M81.0 Age-related osteoporosis without current pathological fracture; R19.5 Other fecal abnormalities

== ENCOUNTER 2016-08-29 12:05 | Observation (INO) | payer MEDICAID ==
[2016-08-29 12:05] VITALS: BMI 34.0
--- NOTE | 2016-08-29 12:43 | ED PDOC ---
HPI: General Adult Time Seen by Provider: 08/29/16 12:24 Chief Complaint (Nursing): Abdominal Pain Chief Complaint (Provider): Bloody stool History Per: Patient History/Exam Limitations: no limitations Onset/Duration Of Symptoms: Days (today) Additional Complaint(s): Pt. with bloody stool this morning. Red blood. No abd pain, chest pain, dyspnea, weakness, headaches, dizziness. No symptoms. Admitted 1 week ago for same. Did not get a scope as pt. not cleared medically for it. Past Medical History Reviewed: Nursing Documentation, Vital Signs Vital Signs: Last Vital Signs Temp 98.1 F 08/29/16 12:08 Pulse 91 H 08/29/16 12:08 Resp 19 08/29/16 12:08 BP 121/71 08/29/16 12:08 Pulse Ox 98 08/29/16 12:49 - Medical History PMH: Anemia, Anxiety, Arthritis, Asthma, CAD, CHF, COPD, CVA (x3), Depression, Gastritis, HTN, Hypercholesterolemia, Osteoporosis, Peripheral Edema, Rheumatoid Arthritis, Seizures, Sleep Apnea, TIA Denies: HIV, Chronic Kidney Disease Other PMH: GI bleed - Surgical History Surgical History: Appendectomy, Coronary Stent ([place]2 [facility] [place] C- Section (x2) - Family History Family History: States: Unknown Family Hx - Living Arrangements Living Arrangements: With Family - Social History Current smoker - smoking cessation education provided: No Alcohol: None Drugs: Denies - Home Medications Home Medications: Ambulatory Orders Medication Instructions Recorded Albuterol HFA [Ventolin HFA 90 2 puff IH Q4H PRN 03/17/16 mcg/actuation (8 g)] Albuterol 0.042% [Albuterol 0.042% 3 ml IH Q6H PRN #20 neb 06/08/16 Inhal Lotus (1.25mg/3ml) UD] Aspirin [Ecotrin] 81 mg PO DAILY #30 tabec 06/08/16 Escitalopram [Lexapro] 15 mg PO HS #30 tab 06/08/16 Folic Acid 1 mg PO DAILY #30 tab 06/08/16 Hydroxychloroquine Sulfate 200 mg PO BID #60 tablet 06/08/16 [Plaquenil] Ketotifen Fumarate [Zaditor] 1 drop BOTHEYES Q12H PRN 30 Days 06/08/16 Losartan [Cozaar] 25 mg PO DAILY #30 tab 06/08/16 Mirtazapine [Remeron] 30 mg PO HS #30 tab 06/08/16 Pantoprazole Sodium [Protonix] 40 mg PO DAILY #30 tablet. 06/08/16 amLODIPine [Norvasc] 5 mg PO DAILY #30 tab 06/08/16 Alprazolam [Xanax] 0.5 mg PO HS 06/20/16 Loratadine/Pseudoephedrine [Gnp 1 tab PO BID 06/20/16 Loratadine-D 12 Hour Tab] Methotrexate 10 mg pe .ROUTE QWK 06/20/16 metOLazone [Zaroxolyn] 1 tab PO DAILY 06/20/16 predniSONE [predniSONE Tab] 5 mg pe PO DAILY 06/20/16 rOPINIRole [Requip] 1 mg PO DAILY 06/20/16 traZODone [Desyrel] 50 mg PO HS 06/20/16 Ondansetron ODT [Zofran ODT] 4 mg PO Q6 PRN #10 odt 06/30/16 Metoprolol Succinate [Toprol XL] 25 mg PO DAILY #30 tab 08/22/16 - Allergies Allergies/Adverse Reactions: Allergies Allergy/AdvReac Type Severity Reaction Status Date / Time No Known Allergies Allergy Verified 08/29/16 12:12 Review of Systems ROS Statement: Except As Marked, All Systems Reviewed And Found Negative Gastrointestinal: Positive for: Hematochezia Physical Exam - Reviewed Nursing Documentation Reviewed: Yes Vital Signs Reviewed: Yes - Physical Exam Appears: Positive for: Non-toxic, No Acute Distress Head Exam: Positive for: ATRAUMATIC, NORMAL INSPECTION, NORMOCEPHALIC Skin: Positive for: Normal Color, Warm, DRY Eye Exam: Positive for: EOMI, Normal appearance, PERRL ENT: Positive for: Normal ENT Inspection Neck: Positive for: Normal, Painless ROM Cardiovascular/Chest: Positive for: Regular Rate, Rhythm Respiratory: Positive for: CNT, Normal Breath Sounds Gastrointestinal/Abdominal: Positive for: Normal Exam, Bowel Sounds, Soft. Negative for: Tenderness Back: Positive for: Normal Inspection. Negative for: L CVA Tenderness, R CVA Tenderness Rectal: Positive for: Rectal Tone Is: (intact), Stool Is Heme: (pos; black stool ). Negative for: Tenderness Extremity: Positive for: Normal ROM. Negative for: Tenderness, Pedal Edema Neurologic/Psych: Positive for: Alert, Oriented - Laboratory Results Result Diagrams: 08/29/16 13:10 Interpretation Of Abn Labs: 10.7 hg - ECG O2 Sat by Pulse Oximetry: 98 Pulse Ox Interpretation: Normal - Progress ED Course And Treament: 1425: Stable. Spoke with Dr. Salas. Will admit obs. No symptoms currently. Hg stable. Disposition - Clinical Impression Clinical Impression: Lower GI bleed - Patient ED Disposition Is Patient to be Admitted: Yes Counseled Patient/Family Regarding: Studies Performed, Diagnosis - Disposition Disposition Time: 14:25 Condition: FAIR - Pt Status Changed To: Hospital Disposition Of: Observation - POA Present On Arrival: None
[2016-08-29] MEDS ORDERED: Sodium Chloride 0.9% 1,000 ML IV STA (13:04)
[2016-08-29 13:20] LABS: BASO % 0.5 % (0.0-2.0); EOS # 0.1 K/uL (0.0-0.7); EOS % 0.8 % (0.0-4.0); HEMATOCRIT 34.9 % (34.0-47.0); LYMPH # 3.3 K/uL (1.0-4.3); LYMPH % 38.9 % (20.0-40.0); MEAN CELL VOLUME 91.5 fl (81.0-99.0); MEAN CORPUSCULAR HGB CONC 30.6 g/dL (33.0-37.0); MEAN PLATELET VOLUME 10.4 fl (7.2-11.7); MONO # 0.7 K/uL (0.0-0.8); MONO % 7.8 % (0.0-10.0); NEUT # 4.4 K/uL (1.8-7.0); NRBC % 0.2 % (0.0-0.0); RED CELL DISTRIBUTION WIDTH 24.3 % (11.5-14.5); WHITE BLOOD COUNT 8.4 K/uL (4.8-10.8)
[2016-08-29 14:27] LABS: BASO % 0.5 % (0.0-2.0); EOS % 0.5 % (0.0-4.0); HEMATOCRIT 34.3 % (34.0-47.0); LYMPH # 2.9 K/uL (1.0-4.3); MEAN CELL VOLUME 93.4 fl (81.0-99.0); MEAN CORPUSCULAR HEMOGLOBIN 27.8 pg (27.0-31.0); MEAN CORPUSCULAR HGB CONC 29.8 g/dL (33.0-37.0); MEAN PLATELET VOLUME 10.2 fl (7.2-11.7); MONO # 0.5 K/uL (0.0-0.8); MONO % 5.8 % (0.0-10.0); NEUT # 4.8 K/uL (1.8-7.0); NEUT % 58.2 % (50.0-75.0); NRBC % 0.4 % (0.0-0.0); RED CELL DISTRIBUTION WIDTH 23.7 % (11.5-14.5); WHITE BLOOD COUNT 8.3 K/uL (4.8-10.8)
[2016-08-29 14:54] LABS: ALB/GLOB RATIO 0.9 (1.0-2.1); ALKALINE PHOSPHATASE 137 U/L (38-126); ALT/SGPT 61 U/L (9-52); AST/SGOT 54 U/L (14-36); BILIRUBIN,TOTAL 0.4 mg/dl (0.2-1.3); BLOOD UREA NITROGEN 39 mg/dl (7-17); CALCIUM 8.8 mg/dL (8.4-10.2); CARBON DIOXIDE 24 mmol/L (22-30); CHLORIDE 110 mmol/L (98-107); GFR AFRICAN-AMERICAN > 60; GLUCOSE,RANDOM 103 mg/dL (65-105); POTASSIUM 4.8 MMOL/L (3.6-5.0); SODIUM 142 mmol/l (132-148); TOTAL PROTEIN 7.6 G/DL (6.3-8.2)
[2016-08-29] MEDS ORDERED: KETOTIFEN FUMARATE BOTHEYES PRN (15:04)
[2016-08-29] MEDS ORDERED: Albuterol 0.042% Inhal Sol (1.25 mg/3 mL) UD IH PRN (15:04)
--- NOTE | 2016-08-29 15:12 | CP.PCM.HP ---
History of Present Illness - History of Present Illness History of Present Illness: 60 year old female with past medical history of respiratory insufficiency 2/2 COPD, OLIVIA, severe PAH with connective tissue dz, SLE, RA, s/p splenectomy with chronic thrombocytopenia, hx CVA, CAD, hx DVT with IVC filter presents to the ER today with 1 episode of moderate bright red blood per rectum, no episodes since last night, not associated with any other symptoms. H/H 10.4/34.3. Vitals stable 109/67. HR 82. Patient guaiac positive in ER. Dr. Navarro consulted for gastroenterology. Patient to be placed on OBS in medsurg. ROS: per HPI, all other systems reviewed and negative by me PMD: Dr. 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, HTN, Sleep apnea using CPAP , asthma/COPD on home oxygen (not using), dyslipidemia rheumatoid arthritis, SLE, osteoporosis, thrombocytopenia Medications; see med rec Surgeries ; Carpal tunnel surgery, C- sections x 2, bunyon removal,splecectomy Family history ; Mother had HTN, DM and CABG Father had CVA HTN and DM Social history ; Lives in [place] with grandchildren, does not smoke , does not drink , does not use any alcohol, used to work in [employer] Temp Pulse Resp BP Pulse Ox 98.1 F 82 19 109/67 100 08/29/16 12:08 08/29/16 15:36 08/29/16 12:08 08/29/16 15:36 08/29/16 15:36 EXAM: Vitals stable and reviewed GEN: WDWN, alert, cooperative HEENT: NCAT, PERRL, EOMI Neck: supple, no lymphadenopathy CARDIO: +S1S2, RRR, NO M/R/G LUNG: CTAB, NO W/R/R ABD: soft, NT, ND, no masses, no HSM EXT: no edema, pedal pulses Neuro: AAOx3, Strength equal, bilateral UE/LE Psych: normal mood, normal affect LABS as below and reviewed 08/29/16 14:15 08/29/16 13:54 RADS Active Medications Albuterol 0.042% [Albuterol 0.042% Inhal Lotus (1.25mg/3ml) UD] 1.25 mg IH Q6H PRN Ketotifen Fumarate [Zaditor] 1 drop BOTHEYES Q12H PRN Ondansetron ODT [Zofran ODT] 4 mg PO Q6 PRN 08/29/16 17:00 Hydroxychloroquine Sulfate [Plaquenil] 200 mg PO BID 08/29/16 22:00 ALPRAZolam [Xanax] 0.5 mg PO HS Escitalopram [Lexapro] 15 mg PO HS Mirtazapine [Remeron] 30 mg PO HS 08/30/16 09:00 DULoxetine [Cymbalta] 30 mg PO DAILY Losartan [Cozaar] 25 mg PO DAILY Metoprolol Succinate [Toprol XL] 25 mg PO DAILY Pantoprazole [Protonix EC Tab] 40 mg PO DAILY predniSONE [predniSONE Tab] 10 mg PO DAILY rOPINIRole [Requip] 1 mg PO DAILY ASSESSMENT AND PLAN: 60 year old female with past medical history of respiratory insufficiency 2/2 COPD, OLIVIA, severe PAH with connective tissue dz, SLE, RA, s/p splenectomy with chronic thrombocytopenia, hx CVA, CAD, hx DVT with IVC filter presents to the ER today with 1 episode of moderate bright red blood per rectum, no episodes since last night, not associated with any other symptoms. H/H 10.4/34.3. Vitals stable 109/67. HR 82. Patient guaiac positive in ER. Dr. Navarro consulted for gastroenterology. Patient to be placed on OBS in medsurg. Rectal Bleed 03/13/16 Colonoscopy: Biopsies showed inflammation, poss viral inclusions vs ischemia? Dr. Navarro consulted no episodes of BRBPR or melena since last night H/H stable HD stable repeat in AM PAH with connective tissue disease CAD, Hx CVA cont amlodipine, cozaar, toprol, Lipitor stable COPD/asthma Duonebs for mild dyspnea stable Depression, Anxiety stable continue lexapro, remeron, cymbalta Thrombocytopenia, s/p Splenectomy RA Sees Dr. Chávez continue plaquenil Present on Admission - Present on Admission Any Indicators Present on Admission: Yes History of DVT/PE: Yes - Notes: Notes:: PATIENT HAS IVC FILTER Past Patient History - Infectious Disease Hx of Infectious Diseases: None - Tetanus Immunizations Tetanus Immunization: Unknown - Past Medical History & Family History Past Medical History?: Yes - Past Social History Alcohol: None Drugs: Denies - CARDIAC Hx Congestive Heart Failure: Yes Hx Hypercholesterolemia: Yes Hx Hypertension: Yes Hx Peripheral Edema: Yes - PULMONARY Hx Asthma: Yes Hx Chronic Obstructive Pulmonary Disease (COPD): Yes Hx Sleep Apnea: Yes - NEUROLOGICAL Hx Seizures: Yes Hx Transient Ischemic Attacks (TIA): Yes - HEENT Hx HEENT Problems: No - RENAL Hx Chronic Kidney Disease: No - ENDOCRINE/METABOLIC Hx Endocrine Disorders: Yes Hx Diabetes Mellitus Type 2: No Hx Systemic Lupus Erythematosus: Yes - HEMATOLOGICAL/ONCOLOGICAL Hx Anemia: Yes Hx Human Immunodeficiency Virus (HIV): No - INTEGUMENTARY Hx Dermatological Problems: No - MUSCULOSKELETAL/RHEUMATOLOGICAL Hx Arthritis: Yes Hx Osteoporosis: Yes Hx Rheumatoid Arthritis: Yes - GASTROINTESTINAL Hx Gastritis: Yes - GENITOURINARY/GYNECOLOGICAL Hx Genitourinary Disorders: Yes Hx Incontinence: Yes - PSYCHIATRIC Hx Anxiety: Yes Hx Depression: Yes - SURGICAL HISTORY Hx Appendectomy: Yes Hx Coronary Stent: Yes (x2 [facility] and [facility] [place]) - ANESTHESIA Hx Anesthesia: Yes Hx Anesthesia Reactions: No Hx Malignant Hyperthermia: No Meds Allergies/Adverse Reactions: Allergies Allergy/AdvReac Type Severity Reaction Status Date / Time No Known Allergies Allergy Verified 08/29/16 12:12 Results - Vital Signs Recent Vital Signs: Last Vital Signs Temp 98.1 F 08/29/16 12:08 Pulse 91 H 08/29/16 12:08 Resp 19 08/29/16 12:08 BP 121/71 08/29/16 12:08 Pulse Ox 98 08/29/16 14:25 - Labs Result Diagrams: 08/29/16 14:15 08/29/16 13:54
[2016-08-29 15:43] LABS: PARTIAL THROMBOPLASTIN TIME 18.2 Seconds (25.6-37.1)
--- NOTE | 2016-08-29 17:02 | CARD ---
APPROVED REPORT EKG Measurement Heart [id number] <Conclusion> Normal sinus rhythm Nonspecific T wave abnormality Abnormal ECG
[2016-08-29 17:59] VITALS: O2SAT 99
[2016-08-30 00:26] VITALS: RESP 20
[2016-08-30 07:17] LABS: HEMATOCRIT 33.3 % (34.0-47.0); MEAN CELL VOLUME 91.2 fl (81.0-99.0); MEAN CORPUSCULAR HEMOGLOBIN 27.8 pg (27.0-31.0); MEAN CORPUSCULAR HGB CONC 30.5 g/dL (33.0-37.0); RED CELL DISTRIBUTION WIDTH 24.5 % (11.5-14.5); WHITE BLOOD COUNT 7.9 K/uL (4.8-10.8)
[2016-08-30] MEDS ORDERED: Metoprolol Succinate 25 mg XL Tab PO SCH (09:00)
[2016-08-30] MEDS ORDERED: Pantoprazole 40 mg EC Tab PO SCH (09:00)
[2016-08-30] MEDS ORDERED: metOLazone 2.5 MG TAB PO SCH (09:00)
[2016-08-30 09:07] VITALS: BP 124/78; PULSE 69
[2016-08-30 10:04] VITALS: TEMP 98.4
--- NOTE | 2016-08-30 10:22 | CP.PCM.DIS ---
Provider - Provider Date of Admission: 08/29/16 14:23 Attending physician: Raquel Salas DO Time Spent in preparation of Discharge (in minutes): 30 Diagnosis - Discharge Diagnosis (1) Lower GI bleed Status: Acute Hospital Course - Lab Results Lab Results: Most Recent Lab Values WBC 7.9 K/uL (4.8-10.8) 08/30/16 04:00 RBC 3.65 Mil/uL (3.80-5.20) L 08/30/16 04:00 Hgb 10.2 g/dL (12.0-16.0) L 08/30/16 04:00 Hct 33.3 % (34.0-47.0) L 08/30/16 04:00 MCV 91.2 fl (81.0-99.0) D 08/30/16 04:00 MCH 27.8 pg (27.0-31.0) 08/30/16 04:00 MCHC 30.5 g/dL (33.0-37.0) L 08/30/16 04:00 RDW 24.5 % (11.5-14.5) H 08/30/16 04:00 Plt Count 145 K/uL (130-400) 08/30/16 04:00 MPV 10.2 fl (7.2-11.7) 08/29/16 14:15 Neut % (Auto) 58.2 % (50.0-75.0) 08/29/16 14:15 Lymph % (Auto) 35.0 % (20.0-40.0) 08/29/16 14:15 [place] % (Auto) 5.8 % (0.0-10.0) 08/29/16 14:15 Eos % (Auto) 0.5 % (0.0-4.0) 08/29/16 14:15 Baso % (Auto) 0.5 % (0.0-2.0) 08/29/16 14:15 Neut # 4.8 K/uL (1.8-7.0) 08/29/16 14:15 Lymph # 2.9 K/uL (1.0-4.3) 08/29/16 14:15 [place] # 0.5 K/uL (0.0-0.8) 08/29/16 14:15 Eos # 0.0 K/uL (0.0-0.7) 08/29/16 14:15 Baso # 0.0 K/uL (0.0-0.2) 08/29/16 14:15 PT 10.3 Seconds (9.8-13.1) 08/29/16 14:15 INR 0.9 (0.9-1.2) 08/29/16 14:15 APTT 18.2 Seconds (25.6-37.1) L 08/29/16 14:15 Sodium 142 mmol/l (132-148) 08/29/16 13:54 Potassium 4.8 MMOL/L (3.6-5.0) 08/29/16 13:54 Chloride 110 mmol/L (98-107) H 08/29/16 13:54 Carbon Dioxide 24 mmol/L (22-30) 08/29/16 13:54 Anion Gap 13 (10-20) 08/29/16 13:54 BUN 39 mg/dl (7-17) H 08/29/16 13:54 Creatinine 0.9 mg/dL (0.7-1.2) 08/29/16 13:54 Est GFR ( Amer) > 60 08/29/16 13:54 Est GFR (Non-Af Amer) > 60 08/29/16 13:54 Random Glucose 103 mg/dL (65-105) 08/29/16 13:54 Calcium 8.8 mg/dL (8.4-10.2) 08/29/16 13:54 Total Bilirubin 0.4 mg/dl (0.2-1.3) 08/29/16 13:54 AST 54 U/L (14-36) H 08/29/16 13:54 ALT 61 U/L (9-52) H D 08/29/16 13:54 Alkaline Phosphatase 137 U/L (38-126) H D 08/29/16 13:54 Troponin I 0.0820 ng/mL (0.00-0.120) 08/29/16 13:54 Total Protein 7.6 G/DL (6.3-8.2) 08/29/16 13:54 Albumin 3.5 g/dL (3.5-5.0) 08/29/16 13:54 Globulin 4.1 gm/dL (2.2-3.9) H 08/29/16 13:54 Albumin/Globulin Ratio 0.9 (1.0-2.1) L 08/29/16 13:54 Blood Type Cancelled 08/29/16 13:10 Antibody Screen Cancelled 08/29/16 13:10 BBK History Checked Cancelled 08/29/16 13:10 - Hospital Course Hospital Course: 60 year old female with past medical history of respiratory insufficiency 2/2 COPD, OLIVIA, severe PAH with connective tissue dz, SLE, RA, s/p splenectomy with chronic thrombocytopenia, hx CVA, CAD, hx DVT with IVC filter presents to the ER today with 1 episode of moderate bright red blood per rectum, no episodes since last night, not associated with any other symptoms. H/H 10.4/34.3. Vitals stable 109/67. HR 82. Patient guaiac positive in ER. Dr. Up consulted for gastroenterology. Patient to be placed on OBS in medsurg. Patient not tachycardic, no further episodes of bleed overnight. 1 normal BM without stool. H/H stable overnight as well, patient is at baseline. Discussed wtih Dr. Up, OK for discharge with follow up. Discussed with Dr. Thomas, patient's neurologist - patient advised to stop aggrenox for 3 weeks if evidence of bleed, and follow up as outpatient. Rectal Bleed 03/13/16 Colonoscopy: Biopsies showed inflammation, poss viral inclusions vs ischemia? Dr. Up consulted no episodes of BRBPR or melena since last night H/H stable HD stable repeat in AM PAH with connective tissue disease CAD, Hx CVA cont amlodipine, cozaar, toprol, Lipitor stable COPD/asthma Duonebs for mild dyspnea stable Depression, Anxiety stable continue lexapro, remeron, cymbalta Thrombocytopenia, s/p Splenectomy RA Sees Dr. Chávez continue plaquenil Discharge Exam - Head Exam Head Exam: ATRAUMATIC, NORMAL INSPECTION, NORMOCEPHALIC - Eye Exam Eye Exam: EOMI, Normal appearance, PERRL Pupil Exam: NORMAL ACCOMODATION - ENT Exam ENT Exam: Mucous Membranes Moist, Normal Oropharynx - Neck Exam Neck exam: Full Rom, Normal Inspection - Respiratory Exam Respiratory Exam: Clear to PA & Lateral, NORMAL BREATHING PATTERN - Cardiovascular Exam Cardiovascular Exam: RRR, +S1, +S2 - GI/Abdominal Exam GI & Abdominal Exam: Normal Bowel Sounds, Soft. absent: Mass, Organomegaly, Tenderness - Extremities Exam Extremities exam: normal capillary refill, pedal pulses present - Back Exam Back exam: absent: CVA tenderness (L), CVA tenderness (R) - Neurological Exam Neurological exam: Alert, Oriented x3 - Psychiatric Exam Psychiatric exam: Normal Affect, Normal Mood - Skin Skin Exam: Dry, Normal Color, Warm Discharge Plan - Discharge Medications Prescriptions: Alprazolam [Xanax] 0.5 mg PO HS #30 Aspirin/Dipyridamole [Aggrenox 25 mg-200 mg Capsule] 1 tab PO BID #30 Diclofenac Sodium [Voltaren] 75 mg PO BID PRN #30 PRN Reason: Pain, Moderate (4-7) Docusate [Colace] 100 mg PO BID PRN #60 PRN Reason: Constipation DULoxetine [Cymbalta] 30 mg PO DAILY #30 ecc DULoxetine [Cymbalta] 30 mg PO DAILY #30 Escitalopram [Lexapro] 15 mg PO HS #30 tab Hydroxychloroquine Sulfate [Plaquenil] 200 mg PO BID #60 tablet Ketotifen Fumarate [Zaditor] 1 drop BOTHEYES Q12H PRN 30 Days PRN Reason: itchy eyes Losartan [Cozaar] 25 mg PO DAILY #30 tab Metoprolol Succinate [Toprol XL] 25 mg PO DAILY #30 tab Mirtazapine [Remeron] 30 mg PO HS #30 tab Ondansetron ODT [Zofran ODT] 4 mg PO Q6 PRN #10 odt PRN Reason: Nausea/Vomiting predniSONE [predniSONE Tab] 10 mg PO DAILY #30 tab predniSONE [predniSONE Tab] 10 mg PO BID #30 rOPINIRole [Requip] 1 mg PO HS #30 - Follow Up Plan Condition: FAIR Disposition: HOME/ ROUTINE Additional Instructions: Patient stable to be discharged home. Follow up with: DR. THOMAS 7-[address] UP 7-10 DAYS PRIMARY CARE PHYSICIAN 7-10 DAYS Resume heart healthy diet Resume activity as tolerated. Return to ER if condition worsens.
--- NOTE | 2016-08-30 10:34 | CP.PCM.CON ---
History of Present Illness - History of Present Illness History of Present Illness: 60 yo female admitted after an episode of bright red blood per rectum. She is on anticoagulation. in the past had colonscopy and c abdomen. Cecal ulcer had been present. Also present was diverticulosis. Review of Systems - EENT Eyes: absent: Blurred Vision Nose/Mouth/Throat: absent: Epistaxis - Cardiovascular Cardiovascular: absent: Chest Pain - Respiratory Respiratory: absent: Cough - Gastrointestinal Gastrointestinal: absent: Abdominal Pain Past Patient History - Infectious Disease Hx of Infectious Diseases: None - Tetanus Immunizations Tetanus Immunization: Unknown - Past Medical History & Family History Past Medical History?: Yes - Past Social History Smoking Status: Never Smoked - CARDIAC Hx Cardiac Disorders: Yes Hx Congestive Heart Failure: Yes Hx Heart Attack: Yes Hx Hypercholesterolemia: Yes Hx Hypertension: Yes Hx Peripheral Edema: Yes Hx Peripheral Vascular Disease: Yes Other/Comment: hx of 4 strokes - PULMONARY Hx Respiratory Disorders: Yes Hx Asthma: Yes Hx Chronic Obstructive Pulmonary Disease (COPD): Yes Hx Sleep Apnea: Yes - NEUROLOGICAL Hx Neurological Disorder: Yes - HEENT Hx HEENT Problems: Yes - RENAL Hx Chronic Kidney Disease: No - ENDOCRINE/METABOLIC Hx Endocrine Disorders: No - HEMATOLOGICAL/ONCOLOGICAL Hx Blood Disorders: Yes Hx AIDS: No Hx Anemia: Yes Hx Human Immunodeficiency Virus (HIV): No - INTEGUMENTARY Hx Dermatological Problems: No - MUSCULOSKELETAL/RHEUMATOLOGICAL Hx Musculoskeletal Disorders: Yes Hx Arthritis: Yes Hx Falls: Yes Hx Osteoporosis: Yes Hx Rheumatoid Arthritis: Yes Hx Unsteady Gait: Yes - GASTROINTESTINAL Hx Gastrointestinal Disorders: Yes Hx Gastritis: Yes - GENITOURINARY/GYNECOLOGICAL Hx Genitourinary Disorders: Yes Hx Incontinence: Yes - PSYCHIATRIC Hx Psychophysiologic Disorder: Yes Hx Anxiety: Yes Hx Depression: Yes Hx Substance Use: No - SURGICAL HISTORY Hx Surgeries: Yes Hx Appendectomy: Yes Hx Section: Yes Hx Coronary Stent: Yes (x2 [place] and [facility] [place]) Hx Hysterectomy: Yes Other/Comment: bunionectomy, carpel tunnel surgery - ANESTHESIA Hx Anesthesia: Yes Hx Anesthesia Reactions: No Hx Malignant Hyperthermia: No Meds Home Medications: Home Medication List Medication Instructions Recorded Confirmed Type Alprazolam [Xanax] 0.5 mg PO HS #30 08/30/16 Rx Aspirin/Dipyridamole [Aggrenox 25 1 tab PO BID #30 08/30/16 Rx mg-200 mg Capsule] DULoxetine [Cymbalta] 30 mg PO DAILY #30 08/30/16 Rx DULoxetine [Cymbalta] 30 mg PO DAILY #30 ecc 08/30/16 Rx Diclofenac Sodium [Voltaren] 75 mg PO BID PRN #30 08/30/16 Rx Docusate [Colace] 100 mg PO BID PRN #60 08/30/16 Rx Escitalopram [Lexapro] 15 mg PO HS #30 tab 08/30/16 Rx Hydroxychloroquine Sulfate 200 mg PO BID #60 tablet 08/30/16 Rx [Plaquenil] Ketotifen Fumarate [Zaditor] 1 drop BOTHEYES Q12H PRN 30 Days 08/30/16 Rx Losartan [Cozaar] 25 mg PO DAILY #30 tab 08/30/16 Rx Metoprolol Succinate [Toprol XL] 25 mg PO DAILY #30 tab 08/30/16 Rx Mirtazapine [Remeron] 30 mg PO HS #30 tab 08/30/16 Rx Ondansetron ODT [Zofran ODT] 4 mg PO Q6 PRN #10 odt 08/30/16 Rx predniSONE [predniSONE Tab] 10 mg PO BID #30 08/30/16 Rx predniSONE [predniSONE Tab] 10 mg PO DAILY #30 tab 08/30/16 Rx rOPINIRole [Requip] 1 mg PO HS #30 08/30/16 Rx Allergies/Adverse Reactions: Allergies Allergy/AdvReac Type Severity Reaction Status Date / Time No Known Allergies Allergy Verified 08/29/16 12:12 - Medications Medications: Current Medications Albuterol Sulfate (Albuterol 0.042% Inhal Lotus (1.25mg/3ml) Ud) 1.25 mg IH Q6H PRN PRN Reason: Shortness of Breath Alprazolam (Xanax) 0.5 mg PO HS [facility] Last Admin: 08/29/16 21:19 Dose: 0.5 mg Duloxetine HCl (Cymbalta) 30 mg PO DAILY [facility] Last Admin: 08/30/16 09:05 Dose: 30 mg Escitalopram Oxalate (Lexapro) 15 mg PO HS [facility] Last Admin: 08/29/16 21:20 Dose: 15 mg Home Med (Ketotifen Fumarate [Zaditor]) 1 drop BOTHEYES Q12H PRN PRN Reason: itchy eyes Home Med (Ropinirole [Requip]) 1 mg PO DAILY [facility] Hydroxychloroquine Sulfate (Plaquenil) 200 mg PO BID [facility] Last Admin: 08/30/16 09:05 Dose: 200 mg Losartan Potassium (Cozaar) 25 mg PO DAILY [facility] Last Admin: 08/30/16 09:05 Dose: 25 mg Metoprolol Succinate (Toprol Xl) 25 mg PO DAILY [facility] Last Admin: 08/30/16 09:07 Dose: 25 mg Mirtazapine (Remeron) 30 mg PO HS [facility] Last Admin: 08/29/16 21:19 Dose: 30 mg Ondansetron HCl (Zofran Odt) 4 mg PO Q6 PRN PRN Reason: Nausea/Vomiting Pantoprazole Sodium (Protonix Ec Tab) 40 mg PO DAILY [facility] Last Admin: 08/30/16 09:07 Dose: 40 mg Prednisone (Prednisone Tab) 10 mg PO DAILY [facility] Physical Exam - Head Exam Head Exam: NORMAL INSPECTION - Eye Exam Eye Exam: EOMI Pupil Exam: PERRL - ENT Exam ENT Exam: Mucous Membranes Moist - Neck Exam Neck exam: Positive for: Normal Inspection - Respiratory Exam Respiratory Exam: NORMAL BREATHING PATTERN - Cardiovascular Exam Cardiovascular Exam: REGULAR RHYTHM - GI/Abdominal Exam GI & Abdominal Exam: Normal Bowel Sounds, Soft. absent: Tenderness Results - Vital Signs Recent Vital Signs: Last Vital Signs Temp 98.4 F 08/30/16 10:00 Pulse 69 08/30/16 10:00 Resp 20 08/30/16 10:00 BP 124/78 08/30/16 10:00 Pulse Ox 99 08/30/16 10:00 - Labs Result Diagrams: 08/30/16 04:00 08/29/16 13:54 Labs: Laboratory Results - last 24 hr 08/30/16 04:00 WBC 7.9 RBC 3.65 L Hgb 10.2 L Hct 33.3 L MCV 91.2 D MCH 27.8 MCHC 30.5 L RDW 24.5 H Plt Count 145 Assessment & Plan (1) Lower GI bleed Assessment and Plan: Bleeding appears to have stopped and no more blood seen in stool. Would hold anticoagulants for about one week. Review meds and see if some can be stopped such as diclofenac or lexapro which can predispose to bleeding. Stable for discharge Status: Acute
== END 2016-08-30 16:22 | disposition home or self-care (01) ==
LOC: H.ER 12:05 → H.ERHOLD 14:23 → H.MEDSURG1 18:42
PROVIDERS: ADMIT Student in an Organized Health Care Education/Training Program; ATTEND Student in an Organized Health Care Education/Training Program
DX: K92.2 Gastrointestinal hemorrhage, unspecified (principal); I25.10 Atherosclerotic heart disease of native coronary artery without angina pectoris; J44.9 Chronic obstructive pulmonary disease, unspecified; J45.909 Unspecified asthma, uncomplicated; F32.89 Other specified depressive episodes; F41.9 Anxiety disorder, unspecified; D69.6 Thrombocytopenia, unspecified; E78.00 Pure hypercholesterolemia, unspecified; G47.33 Obstructive sleep apnea (adult) (pediatric); I11.0 Hypertensive heart disease with heart failure; I50.9 Heart failure, unspecified; I73.9 Peripheral vascular disease, unspecified; K57.90 Diverticulosis of intestine, part unspecified, without perforation or abscess without bleeding; K63.3 Ulcer of intestine; M06.9 Rheumatoid arthritis, unspecified; M32.9 Systemic lupus erythematosus, unspecified; M81.0 Age-related osteoporosis without current pathological fracture; Z79.01 Long term (current) use of anticoagulants; Z79.899 Other long term (current) drug therapy; I25.2 Old myocardial infarction; Z82.3 Family history of stroke; Z82.49 Family history of ischemic heart disease and other diseases of the circulatory system; Z83.3 Family history of diabetes mellitus; Z86.718 Personal history of other venous thrombosis and embolism; Z90.49 Acquired absence of other specified parts of digestive tract; Z90.710 Acquired absence of both cervix and uterus; Z90.81 Acquired absence of spleen; Z95.5 Presence of coronary angioplasty implant and graft; Z99.81 Dependence on supplemental oxygen; E78.5 Hyperlipidemia, unspecified; I69.354 Hemiplegia and hemiparesis following cerebral infarction affecting left non-dominant side; M19.90 Unspecified osteoarthritis, unspecified site; D64.9 Anemia, unspecified; R26.81 Unsteadiness on feet; K29.70 Gastritis, unspecified, without bleeding; R32 Unspecified urinary incontinence

== ENCOUNTER 2016-09-19 19:02 | Emergency (ER) | payer MEDICAID ==
[2016-09-19 19:02] VITALS: BMI 34.0
[2016-09-19 19:10] VITALS: BP 164/95; PULSE 60; RESP 16; TEMP 98; O2SAT 100
--- NOTE | 2016-09-19 19:44 | ED PDOC ---
HPI: Headache Time Seen by Provider: 09/19/16 19:23 Chief Complaint (Nursing): Headache Chief Complaint (Provider): Dizziness/Headache History Per: Patient History/Exam Limitations: no limitations Onset/Duration Of Symptoms: Mins (30 minutes [employer] ) Current Symptoms Are (Timing): Still Present Severity: Moderate Additional Complaint(s): Jess Sykes is a 61 y/o female presenting to the ER on 09/19/2016 with complaints of dizziness and headaches onset thirty minutes prior to arrival. Patient reports symptoms began after she was ambulating to the bathroom at her home. Dizziness resolved on its own prior to arrival but she is complaining of associated nausea and upper abdominal discomfort. Denies any fever, vomiting, or diarrhea. Past Medical History Reviewed: Historical Data, Nursing Documentation, Vital Signs Vital Signs: Last Vital Signs Temp 98.0 F 09/19/16 19:08 Pulse 60 09/19/16 19:08 Resp 16 09/19/16 19:08 BP 164/95 H 09/19/16 19:08 Pulse Ox 100 09/19/16 19:08 - Medical History PMH: Anemia, Anxiety, Arthritis, Asthma, CAD, CHF, COPD, CVA (x3), Depression, Deep Vein Thrombosis, Gastritis, HTN, Hypercholesterolemia, Osteoporosis, Peripheral Edema, Rheumatoid Arthritis, Seizures, Sleep Apnea, TIA Denies: HIV, Chronic Kidney Disease Other PMH: Lupus, Renal Insufficiency, GI Bleed, non-STEMI - Surgical History Surgical History: Appendectomy, Coronary St[place] [facility] [place] C- Section (x2) Other surgeries: carpal tunnel, splenectomy - Family History Family History: States: Unknown Family Hx - Social History Current smoker - smoking cessation education provided: No Alcohol: None Drugs: Denies - Home Medications Home Medications: Ambulatory Orders Medication Instructions Recorded Loratadine [Allerclear] 10 mg PO DAILY 08/29/16 Ranitidine HCl [Zantac] 150 mg PO BID 08/29/16 Alprazolam [Xanax] 0.5 mg PO HS #30 08/30/16 Aspirin/Dipyridamole [Aggrenox 25 1 tab PO BID #30 08/30/16 mg-200 mg Capsule] DULoxetine [Cymbalta] 30 mg PO DAILY #30 08/30/16 DULoxetine [Cymbalta] 30 mg PO DAILY #30 ecc 08/30/16 Diclofenac Sodium [Voltaren] 75 mg PO BID PRN #30 08/30/16 Docusate [Colace] 100 mg PO BID PRN #60 08/30/16 Escitalopram [Lexapro] 15 mg PO HS #30 tab 08/30/16 Hydroxychloroquine Sulfate 200 mg PO BID #60 tablet 08/30/16 [Plaquenil] Ketotifen Fumarate [Zaditor] 1 drop BOTHEYES Q12H PRN 30 Days 08/30/16 Losartan [Cozaar] 25 mg PO DAILY #30 tab 08/30/16 Metoprolol Succinate [Toprol XL] 25 mg PO DAILY #30 tab 08/30/16 Mirtazapine [Remeron] 30 mg PO HS #30 tab 08/30/16 Ondansetron ODT [Zofran ODT] 4 mg PO Q6 PRN #10 odt 08/30/16 predniSONE [predniSONE Tab] 10 mg PO BID #30 08/30/16 predniSONE [predniSONE Tab] 10 mg PO DAILY #30 tab 08/30/16 rOPINIRole [Requip] 1 mg PO HS #30 08/30/16 Ondansetron [Zofran] 4 mg PO Q6H PRN #6 tab 09/19/16 - Allergies Allergies/Adverse Reactions: Allergies Allergy/AdvReac Type Severity Reaction Status Date / Time No Known Allergies Allergy Verified 08/29/16 12:12 Review of Systems ROS Statement: Except As Marked, All Systems Reviewed And Found Negative Constitutional: Negative for: Fever Gastrointestinal: Positive for: Nausea, Abdominal Pain. Negative for: Vomiting , Diarrhea Neurological: Positive for: Headache, Dizziness Physical Exam - Reviewed Nursing Documentation Reviewed: Yes Vital Signs Reviewed: Yes - Physical Exam Appears: Positive for: Non-toxic, No Acute Distress (pt appears slightly contracted and has residual weakness from prior CVA) Head Exam: Positive for: ATRAUMATIC, NORMOCEPHALIC Skin: Positive for: Normal Color. Negative for: Rash Eye Exam: Positive for: Normal appearance, EOMI, PERRL Neck: Positive for: Normal, Painless ROM, Supple Cardiovascular/Chest: Positive for: Regular Rate, Rhythm. Negative for: Murmur Respiratory: Positive for: Normal Breath Sounds. Negative for: Wheezing, Respiratory Distress Gastrointestinal/Abdominal: Positive for: Normal Exam, Soft. Negative for: Tenderness Extremity: Positive for: Normal ROM. Negative for: Deformity, Swelling Neurologic/Psych: Positive for: Alert, Oriented. Negative for: Motor/Sensory Deficits - Laboratory Results Result Diagrams: 09/19/16 20:33 09/19/16 20:33 - ECG O2 Sat by Pulse Oximetry: 100 Medical Decision Making Medical Decision Makin:23 Initial Impression- 61 y/o female with dizziness which has resolved labs and CT head negative for acute intracranail process pt wants to go home with family pt will follow up with outpt neurology Initial Plan- * Documented by Jorge Orantes, acting as a scribe for Kane Pablo MD All medical record entries made by the Scribe were at my direction and personally dictated by me. I have reviewed the chart and agree that the record accurately reflects my personal performance of the history, physical exam, medical decision making, and the department course for this patient. I have also personally directed, reviewed, and agree with the discharge instructions and disposition. Disposition - Clinical Impression Clinical Impression: Headache - Patient ED Disposition Is Patient to be Admitted: No Counseled Patient/Family Regarding: Studies Performed, Diagnosis, Need For Followup - Disposition Disposition: Routine/Home Disposition Time: 21:00 Condition: IMPROVED Additional Instructions: follow up with your primary doctor Dr Albright tomorrow for reevaluation return to the ED with any worsening or concerning symptoms Prescriptions: Ondansetron [Zofran] 4 mg PO Q6H PRN #6 tab PRN Reason: Nausea/Vomiting Instructions: Dizziness (ED)
[2016-09-19 20:53] LABS: BASO # 0.1 K/uL (0.0-0.2); BASO % 0.8 % (0.0-2.0); EOS % 0.3 % (0.0-4.0); HEMOGLOBIN 9.4 g/dL (12.0-16.0); LYMPH # 3.2 K/uL (1.0-4.3); LYMPH % 30.8 % (20.0-40.0); MEAN CORPUSCULAR HEMOGLOBIN 29.6 pg (27.0-31.0); MEAN CORPUSCULAR HGB CONC 30.5 g/dL (33.0-37.0); MONO # 0.9 K/uL (0.0-0.8); MONO % 8.6 % (0.0-10.0); NEUT # 6.1 K/uL (1.8-7.0); NEUT % 59.5 % (50.0-75.0); NRBC % 0.9 % (0.0-0.0); RBC 3.18 Mil/uL (3.80-5.20); RED CELL DISTRIBUTION WIDTH 28.3 % (11.5-14.5); WHITE BLOOD COUNT 10.3 K/uL (4.8-10.8)
[2016-09-19 20:59] LABS: ALBUMIN 3.6 g/dL (3.5-5.0); ALT/SGPT 95 U/L (9-52); AST/SGOT 55 U/L (14-36); BLOOD UREA NITROGEN 27 mg/dl (7-17); CALCIUM 8.6 mg/dL (8.4-10.2); GFR AFRICAN-AMERICAN > 60; GFR NON-AFRICAN AMERICAN 56
--- NOTE | 2016-09-19 22:07 | CT ---
EXAM: CT Head Without Intravenous Contrast CLINICAL HISTORY: 61 years old, female; Signs and symptoms; Dizziness and other: Headache; Patient HX: HX of TIA. HX of CVA; Additional info: Headache. Sent phy. Doc. With request TECHNIQUE: Axial computed tomography images of the head/brain without intravenous contrast. This CT exam was performed using one or more of the following dose reduction techniques: automated exposure control, adjustment of the mA and/or kV according to patient size, and/or use of iterative reconstruction technique. Coronal and sagittal reformatted images were created and reviewed. EXAM DATE/TIME: 09/19/2016 7:54 PM COMPARISON: CT - HEAD W/O CONTRAST 06/07/2016 1:10:31 PM FINDINGS: Brain: There is dilatation of sulci gyri and ventricles. There is no midline shift. There is decreased attenuation in periventricular white matter. There are focal regions of encephalomalacia in the frontal, temporal and parietal lobes bilaterally, unchanged There are no focal masses. There are no focal hemorrhages. Trivedi-white differentiation is visualized. Ventricles: See above Bones: Cranial vault is intact. Soft tissues: unremarkable Sinuses: There is no acute sinusitis. Ears and mastoids: Middle ears and mastoids are unremarkable. Orbits: Orbital contents are unremarkable. IMPRESSION: Atrophy and small vessel disease; multiple old infarcts; no lead
[2016-09-19 22:49] LABS: SQUAMOUS EPITHIAL 1 /hpf (0-5); URINE BACTERIA RARE (<OCC); URINE BILIRUBIN NEGATIVE (NEGATIVE); URINE BLOOD NEGATIVE (NEGATIVE); URINE CLARITY CLEAR (Clear); URINE COLOR STRAW (YELLOW); URINE GLUCOSE (UA) NEG (Normal); URINE LEUKOCYTE ESTERASE NEG Leu/uL (Negative); URINE NITRATE NEGATIVE (NEGATIVE); URINE PROTEIN NEGATIVE (NEGATIVE); URINE UROBILINOGEN 0.2-1.0 mg/dL (0.2-1.0)
--- NOTE | 2016-09-21 11:47 | CARD ---
APPROVED REPORT EKG Measurement Heart [id number] <Conclusion> Normal sinus rhythm Nonspecific T wave abnormality Prolonged QT Abnormal ECG
== END 2016-09-19 23:12 | disposition home or self-care (01) ==
LOC: H.ER 19:02
DX: R51 Headache (principal); R42 Dizziness and giddiness

== ENCOUNTER 2016-11-14 09:16 | Observation (INO) | payer MEDICAID ==
[2016-11-14 09:20] VITALS: BMI 39.6
[2016-11-14 09:21] VITALS: TEMP 97.8
[2016-11-14 09:27] VITALS: PULSE 72
--- NOTE | 2016-11-14 10:33 | ED PDOC ---
HPI: Chest Pain Time Seen by Provider: 11/14/16 09:43 Chief Complaint (Nursing): Chest Pain Chief Complaint (Provider): Chest Pain History Per: Patient History/Exam Limitations: no limitations Current Symptoms Are (Timing): Constant Quality: "Pain" Additional Complaint(s): Jess Sykes, a 61 year old female, presents to the ED complaining of constant left sided chest pain associated with shortness of breath. Patient states she did not take anything for pain. Past Medical History Reviewed: Historical Data, Nursing Documentation, Vital Signs Vital Signs: Last Vital Signs Temp 97.8 F 11/14/16 09:20 Pulse 72 11/14/16 09:24 Resp 70 H 11/14/16 14:33 BP 114/62 11/14/16 14:33 Pulse Ox 96 11/29/16 15:07 - Medical History PMH: Anemia, Anxiety, Arthritis, Asthma, CAD, CHF, COPD, CVA (x3), Depression, Deep Vein Thrombosis, Gastritis, HTN, Hypercholesterolemia, Osteoporosis, Peripheral Edema, Rheumatoid Arthritis, Seizures, Sleep Apnea, TIA Denies: HIV, Chronic Kidney Disease - Surgical History Surgical History: App[place]ectomy, [place] [facility] [place]x2[place] - Family History Family History: States: Unknown Family Hx - Home Medications Home Medications: Ambulatory Orders Medication Instructions Recorded Hydroxychloroquine Sulfate 200 mg PO BID #60 tablet 08/30/16 [Plaquenil] Losartan [Cozaar] 25 mg PO DAILY #30 tab 08/30/16 Metoprolol Succinate [Toprol XL] 25 mg PO DAILY #30 tab 08/30/16 Mirtazapine [Remeron] 30 mg PO HS #30 tab 08/30/16 rOPINIRole [Requip] 1 mg PO HS #30 08/30/16 Ondansetron [Zofran] 4 mg PO Q6H PRN #6 tab 09/19/16 Alprazolam [Xanax] 0.5 mg PO HS 11/14/16 Atorvastatin [Lipitor] 10 mg PO HS 11/14/16 Clopidogrel [Plavix] 75 mg PO DAILY 11/14/16 Escitalopram [Lexapro] 5 mg PO HS 11/14/16 Escitalopram [Lexapro] 10 mg PO HS 11/14/16 Folic Acid 1 mg PO DAILY 11/14/16 Hyoscyamine [Levsin] 1 tab PO HS PRN 11/14/16 Loratadine/Pseudoephedrine 1 tab PO HS 11/14/16 [Loratadine-D 12 Hour Tablet] Meclizine [Antivert] 1 tab PO TID PRN 11/14/16 Pantoprazole [Protonix] 40 mg PO DAILY 11/14/16 Prednisone [Kiarra] 5 mg PO DAILY 11/14/16 Ranitidine HCl [Zantac] 150 mg PO DAILY 11/14/16 rOPINIRole [Requip] 1 mg PO HS 11/14/16 - Allergies Allergies/Adverse Reactions: Allergies Allergy/AdvReac Type Severity Reaction Status Date / Time No Known Allergies Allergy Verified 08/29/16 12:12 Review of Systems Cardiovascular: Positive for: Chest Pain (Left sided chest pain) Respiratory: Positive for: Shortness of Breath Physical Exam - Reviewed Nursing Documentation Reviewed: Yes Vital Signs Reviewed: Yes - Physical Exam Appears: Positive for: Non-toxic, No Acute Distress Skin: Positive for: Normal Color, Warm, Dry Eye Exam: Positive for: Normal appearance, EOMI, PERRL Cardiovascular/Chest: Positive for: Regular Rate, Rhythm. Negative for: Chest Non Tender (tenderness to left side chest wall) Respiratory: Positive for: Normal Breath Sounds. Negative for: Rales, Rhonchi, Wheezing, Respiratory Distress Back: Positive for: Normal Inspection. Negative for: L CVA Tenderness, R CVA Tenderness Neurologic/Psych: Positive for: Alert, Oriented, Gait - Laboratory Results Result Diagrams: 11/14/16 10:45 11/14/16 10:45 - ECG O2 Sat by Pulse Oximetry: 96 (RA) Pulse Ox Interpretation: Normal Medical Decision Making Medical Decision Makin Initial Impression: 61 year old female presenting with left sided chest pain Initial Plan: * EKG * CMP * Troponin * Udip * CBC * D-dimer * PTT * Prothrombin Time * CXR * Urinalysis * Reevaluation Time: 1550 --This patient is choosing to leave against medical advice. The provider has personally explained to the patient that choosing to do so may result in permanent bodily harm or . The provider discussed at great length that without further evaluation and monitoring there may be unforeseen circumstances and/or deterioration causing permanent bodily harm or as a result of their choice. The patient verbalized these risks back to the physician in laymans terms. The patient is alert, oriented, and shows the mental capacity to make clear decisions regarding the patients health care at this time. The patient continues to wish to leave against medical advice. Scribe Attestation Documented by Keena Holley acting as a scribe for Belem Canales MD. Provider Attestation All medical record entries made by the Scribe were at my direction and personally dictated by me. I have reviewed the chart and agree that the record accurately reflects my personal performance of the history, physical exam, medical decision making, and the department course for this patient. I have also personally directed, reviewed, and agree with the discharge instructions and disposition. Disposition - Clinical Impression Clinical Impression: Chest pain - Disposition Disposition: Against Medical Advice Disposition Time: 14:30 Condition: UNKNOWN
[2016-11-14 11:11] LABS: BASO % 0.5 % (0.0-2.0); EOS % 0.7 % (0.0-4.0); LYMPH # 2.4 K/uL (1.0-4.3); LYMPH % 37.1 % (20.0-40.0); MEAN CELL VOLUME 92.7 fl (81.0-99.0); MEAN CORPUSCULAR HEMOGLOBIN 28.9 pg (27.0-31.0); MEAN CORPUSCULAR HGB CONC 31.2 g/dL (33.0-37.0); MONO # 0.5 K/uL (0.0-0.8); MONO % 8.1 % (0.0-10.0); NEUT # 3.5 K/uL (1.8-7.0); NEUT % 53.6 % (50.0-75.0); NRBC % 0.4 % (0.0-0.0); RED CELL DISTRIBUTION WIDTH 20.9 % (11.5-14.5); WHITE BLOOD COUNT 6.6 K/uL (4.8-10.8)
--- NOTE | 2016-11-14 11:12 | RAD ---
HISTORY: Chest pain COMPARISON: 08/19/2016 FINDINGS: LUNGS: The lungs are well inflated and clear. PLEURA: No significant pleural effusion identified, no pneumothorax apparent. CARDIOVASCULAR: Normal. OSSEOUS STRUCTURES: No significant abnormalities. VISUALIZED UPPER ABDOMEN: Normal. OTHER FINDINGS: None. IMPRESSION: No active pulmonary disease.
--- NOTE | 2016-11-14 11:16 | CARD ---
APPROVED REPORT EKG Measurement Heart [id number] [id number] <Conclusion> Normal sinus rhythm Nonspecific T wave abnormality Abnormal ECG
[2016-11-14 11:18] LABS: ALKALINE PHOSPHATASE 89 U/L (38-126); ALT/SGPT 47 U/L (9-52); AST/SGOT 38 U/L (14-36); BILIRUBIN,TOTAL 0.3 mg/dl (0.2-1.3); BLOOD UREA NITROGEN 21 mg/dl (7-17); CALCIUM 8.8 mg/dL (8.4-10.2); CARBON DIOXIDE 24 mmol/L (22-30); CHLORIDE 111 mmol/L (98-107); GFR AFRICAN-AMERICAN > 60; GLUCOSE,RANDOM 126 mg/dL (65-105); POTASSIUM 3.7 MMOL/L (3.6-5.0); SODIUM 143 mmol/l (132-148); TOTAL PROTEIN 6.7 G/DL (6.3-8.2)
[2016-11-14 12:08] LABS: PARTIAL THROMBOPLASTIN TIME 25.3 Seconds (25.6-37.1)
[2016-11-14] MEDS ORDERED: Iodixanol 320 MG/ML 100 ML BOTTLE IV ONE (12:56)
[2016-11-14] MEDS ORDERED: Sodium Chloride 0.9% 50 ML IV ONE (12:56)
[2016-11-14 14:34] VITALS: BP 114/62; RESP 70
--- NOTE | 2016-11-14 14:36 | CT ---
PROCEDURE: CT Chest with contrast (Pulmonary Angiogram) HISTORY: CP, SOB COMPARISON: None available. TECHNIQUE: Axial computed tomography images were obtained of the chest in the pulmonary arterial phase of enhancement. Coronal and sagittal reformatted images were created and reviewed. Radiation dose: Total exam DLP = 396.63 mGy-cm. This CT exam was performed using one or more of the following dose reduction techniques: Automated exposure control, adjustment of the mA and/or kV according to patient size, and/or use of iterative reconstruction technique. FINDINGS: PULMONARY ARTERIES: There are no filling defects in the pulmonary arteries to suggest acute pulmonary embolism. AORTA: No evidence of aortic aneurysm or dissection LUNGS: There is mild subsegmental atelectasis in the posterior segment of the right upper lobe. There is patchy ground-glass attenuation in the lungs. No focal consolidation. There are no endobronchial lesions. PLEURAL SPACES: No effusion or pneumothorax. HEART: There is mild cardiomegaly. No pericardial effusion. LYMPH NODES: No pathologic lymphadenopathy. BONES, CHEST WALL: Unremarkable. No fracture or there is diffuse bone demineralization and multilevel degenerative changes in the spine with ossification of the anterior longitudinal ligament in the mid and lower thoracic spine. There are old osteoporotic compression deformities in the lower thoracic and upper lumbar spine. There is dextroscoliosis in the thoracolumbar spine. OTHER FINDINGS: There is a coarse round calcification in the hepatic dome. Both adrenal glands are normal. IMPRESSION: 1. No CT evidence for acute pulmonary embolism. Mild cardiomegaly. No pericardial effusion. 2. Patchy ground-glass attenuation in the lung is nonspecific and may be related to nonspecific infection/inflammation.
--- NOTE | 2016-11-14 14:43 | CP.PCM.HP ---
History of Present Illness - History of Present Illness History of Present Illness: 60 year old female with past medical history of respiratory insufficiency 2/2 COPD, OLIVIA, severe PAH with connective tissue dz, SLE, RA, s/p splenectomy with chronic thrombocytopenia, hx CVA, CAD, hx DVT with IVC filter presents to the ER today with ROS: per HPI, all other systems reviewed and negative by me PMD: Dr. 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, HTN, Sleep apnea using CPAP , asthma/COPD on home oxygen (not using), dyslipidemia rheumatoid arthritis, SLE, osteoporosis, thrombocytopenia Medications; see med rec Surgeries ; Carpal tunnel surgery, C- sections x 2, bunyon removal,splecectomy Family history ; Mother had HTN, DM and CABG Father had CVA HTN and DM Social history ; Lives in [place] with grandchildren, does not smoke , does not drink , does not use any alcohol, used to work in [employer] Temp Pulse Resp BP Pulse Ox 97.8 F 72 70 H 114/62 98 11/14/16 09:20 11/14/16 09:24 11/14/16 14:33 11/14/16 14:33 11/14/16 14:33 Exam: GEN: WDWN, alert, cooperative HEENT: NCAT, PERRL, EOMI NECK: supple, no JVD, no lymphadenopathy CARDIAC: +S1S2 RRR LUNG: CTAB No WRR ABD: SOFT NT ND BSX4 NO MASSES NO HSM EXT: +pedal pulses, equal strength NEURO: AAOx3 SKIN warm, dry PSYCH normal mood, normal affect 11/14/16 10:45 11/14/16 10:45 11/14/16 11/14/16 11/14/16 11:40 10:45 10:45 WBC 6.6 RBC 3.99 Hgb 11.5 L D Hct 37.0 MCV 92.7 D MCH 28.9 MCHC 31.2 L RDW 20.9 H Plt Count 93 L MPV 10.0 Neut % (Auto) 53.6 Lymph % (Auto) 37.1 Ralls % (Auto) 8.1 Eos % (Auto) 0.7 Baso % (Auto) 0.5 Neut # 3.5 Lymph # 2.4 Ralls # 0.5 Eos # 0.0 Baso # 0.0 PT 10.3 INR 1.0 APTT 25.3 L D-Dimer, Quantitative 741 H Sodium 143 Potassium 3.7 Chloride 111 H Carbon Dioxide 24 Anion Gap 12 BUN 21 H Creatinine 0.8 Est GFR ( Amer) > 60 Est GFR (Non-Af Amer) > 60 Random Glucose 126 H Calcium 8.8 Total Bilirubin 0.3 AST 38 H D ALT 47 Alkaline Phosphatase 89 Troponin I 0.0590 Total Protein 6.7 Albumin 3.4 L Globulin 3.3 Albumin/Globulin Ratio 1.0 Trop 0.[address] - EKG - NSR, old T wave inversions lateral leads, flattening inf leads Past Patient History - Infectious Disease Hx of Infectious Diseases: None - Tetanus Immunizations Tetanus Immunization: Unknown - Past Medical History & Family History Past Medical History?: Yes - Past Social History Smoking Status: Never Smoked - CARDIAC Hx Congestive Heart Failure: Yes Hx Hypercholesterolemia: Yes Hx Hypertension: Yes Hx Peripheral Edema: Yes - PULMONARY Hx Asthma: Yes Hx Chronic Obstructive Pulmonary Disease (COPD): Yes Hx Sleep Apnea: Yes - NEUROLOGICAL Hx Seizures: Yes Hx Transient Ischemic Attacks (TIA): Yes - HEENT Hx HEENT Problems: Yes - RENAL Hx Chronic Kidney Disease: No - ENDOCRINE/METABOLIC Hx Endocrine Disorders: No - HEMATOLOGICAL/ONCOLOGICAL Hx Anemia: Yes Hx Human Immunodeficiency Virus (HIV): No - INTEGUMENTARY Hx Dermatological Problems: No - MUSCULOSKELETAL/RHEUMATOLOGICAL Hx Arthritis: Yes Hx Osteoporosis: Yes Hx Rheumatoid Arthritis: Yes - GASTROINTESTINAL Hx Gastritis: Yes - GENITOURINARY/GYNECOLOGICAL Hx Genitourinary Disorders: Yes Hx Incontinence: Yes - PSYCHIATRIC Hx Anxiety: Yes Hx Depression: Yes - SURGICAL HISTORY Hx Appendectomy: Yes Hx Coronary Stent: Yes (x2 [place] and [facility] [place] - ANESTHESIA Hx Anesthesia: Yes Hx Anesthesia Reactions: No Hx Malignant Hyperthermia: No Meds Allergies/Adverse Reactions: Allergies Allergy/AdvReac Type Severity Reaction Status Date / Time No Known Allergies Allergy Verified 08/29/16 12:12 Results - Vital Signs Recent Vital Signs: Last Vital Signs Temp 97.8 F 11/14/16 09:20 Pulse 72 11/14/16 09:24 Resp 70 H 11/14/16 14:33 BP 114/62 11/14/16 14:33 Pulse Ox 98 11/14/16 14:33 - Labs Result Diagrams: 11/14/16 10:45 11/14/16 10:45 Labs: Laboratory Results - last 24 hr 11/14/16 11/14/16 11/14/16 10:45 10:45 11:40 WBC 6.6 RBC 3.99 Hgb 11.5 L D Hct 37.0 MCV 92.7 D MCH 28.9 MCHC 31.2 L RDW 20.9 H Plt Count 93 L MPV 10.0 Neut % (Auto) 53.6 Lymph % (Auto) 37.1 Ralls % (Auto) 8.1 Eos % (Auto) 0.7 Baso % (Auto) 0.5 Neut # 3.5 Lymph # 2.4 Ralls # 0.5 Eos # 0.0 Baso # 0.0 PT 10.3 INR 1.0 APTT 25.3 L D-Dimer, Quantitative 741 H Sodium 143 Potassium 3.7 Chloride 111 H Carbon Dioxide 24 Anion Gap 12 BUN 21 H Creatinine 0.8 Est GFR ( Amer) > 60 Est GFR (Non-Af Amer) > 60 Random Glucose 126 H Calcium 8.8 Total Bilirubin 0.3 AST 38 H D ALT 47 Alkaline Phosphatase 89 Troponin I 0.0590 Total Protein 6.7 Albumin 3.4 L Globulin 3.3 Albumin/Globulin Ratio 1.0
[2016-11-14] MEDS ORDERED: Hyoscyamine 0.125 mg SL Tab PO PRN ×2 (14:44→18:30)
[2016-11-14] MEDS ORDERED: Patient's Own Med (Ropinirole [Requip] 1 MG) PO SCH (22:00)
[2016-11-15] MEDS ORDERED: Pantoprazole 40 mg EC Tab PO SCH (09:00)
[2016-11-15] MEDS ORDERED: Metoprolol Succinate 25 mg XL Tab PO SCH (09:00)
[2016-11-29 15:07] VITALS: O2SAT 96
== END 2016-11-14 15:56 | disposition left against medical advice (07) ==
LOC: H.ER 09:16 → H.ERHOLD 14:30
PROVIDERS: ADMIT Student in an Organized Health Care Education/Training Program; ATTEND Student in an Organized Health Care Education/Training Program
DX: R07.9 Chest pain, unspecified (principal); E78.00 Pure hypercholesterolemia, unspecified; G47.30 Sleep apnea, unspecified; I25.10 Atherosclerotic heart disease of native coronary artery without angina pectoris; I50.9 Heart failure, unspecified; J44.9 Chronic obstructive pulmonary disease, unspecified; M06.9 Rheumatoid arthritis, unspecified; Z86.73 Personal history of transient ischemic attack (TIA), and cerebral infarction without residual deficits; M81.0 Age-related osteoporosis without current pathological fracture; I11.0 Hypertensive heart disease with heart failure; D64.9 Anemia, unspecified; F32.9 Major depressive disorder, single episode, unspecified; F41.9 Anxiety disorder, unspecified; K29.70 Gastritis, unspecified, without bleeding; M19.90 Unspecified osteoarthritis, unspecified site; R56.9 Unspecified convulsions; Z79.02 Long term (current) use of antithrombotics/antiplatelets; Z95.5 Presence of coronary angioplasty implant and graft
CPT/HCPCS: 71010; 71275; 80053; 84484; 85025; 85378; 85610; 85730; 93005; 99283; G0378; Q9967

== ENCOUNTER 2016-12-25 12:23 | Observation (INO) | payer MEDICAID ==
[2016-12-25 12:23] VITALS: BMI 39.6
[2016-12-25] MEDS ORDERED: Sodium Chloride 0.9% 1,000 ML IV STA (13:44)
[2016-12-25] MEDS ORDERED: Iohexol 240 (50 ml) PO ONE (14:02)
[2016-12-25 14:04] LABS: BASO % 0.3 % (0.0-2.0); EOS % 0.6 % (0.0-4.0); HEMATOCRIT 35.8 % (34.0-47.0); LYMPH # 1.9 K/uL (1.0-4.3); LYMPH % 26.7 % (20.0-40.0); MEAN CELL VOLUME 92.7 fl (81.0-99.0); MEAN CORPUSCULAR HEMOGLOBIN 29.1 pg (27.0-31.0); MEAN CORPUSCULAR HGB CONC 31.4 g/dL (33.0-37.0); MEAN PLATELET VOLUME 9.8 fl (7.2-11.7); MONO # 0.5 K/uL (0.0-0.8); MONO % 7.5 % (0.0-10.0); NEUT # 4.7 K/uL (1.8-7.0); NEUT % 64.9 % (50.0-75.0); NRBC % 0.7 % (0.0-0.0); RED CELL DISTRIBUTION WIDTH 21.8 % (11.5-14.5); WHITE BLOOD COUNT 7.2 K/uL (4.8-10.8)
[2016-12-25] MEDS ORDERED: Iohexol 240 (50 ml) ONE (14:18)
--- NOTE | 2016-12-25 14:25 | ED PDOC ---
HPI: Abdomen Time Seen by Provider: 12/25/16 12:30 Chief Complaint (Nursing): Abdominal Pain Chief Complaint (Provider): Abdominal Pain History Per: Patient History/Exam Limitations: no limitations Onset/Duration Of Symptoms: Days (x 2 weeks) Current Symptoms Are (Timing): Still Present Location Of Pain/Discomfort: RUQ Additional Complaint(s): Jess is a 61 y/o female who presents to the ED for 2 weeks of abdominal pain, vomiting, and diarrhea. Abdominal pain is localized to the right upper quadrant. She saw GI specialist Dr. Navarro, a few days ago, who gave her multiple prescriptions including Pepcid, with no relief. Patient continues to have persistent vomiting and diarrhea, prompting ED visit. Denies any associated fever. PMD: Anuel Navarro Past Medical History Reviewed: Historical Data, Nursing Documentation, Vital Signs Vital Signs: Last Vital Signs Temp 97.5 F L 12/26/16 12:04 Pulse 73 12/26/16 12:04 Resp 18 12/26/16 12:04 BP 127/68 12/26/16 12:04 Pulse Ox 96 12/26/16 12:04 - Medical History PMH: Anemia, Anxiety, Arthritis, Asthma, CAD, CHF, COPD, CVA (x3), Depression, Deep Vein Thrombosis, Gastritis, HTN, Hypercholesterolemia, Osteoporosis, Peripheral Edema, Rheumatoid Arthritis, Seizures, Sleep Apnea, TIA Denies: HIV, Chronic Kidney Disease - Surgical History Surgical History: Appendectomy, Coronary Stent (x2 [facility] and [facility] [place]), C- Section (x2) - Family History Family History: States: Unknown Family Hx - Social History Current smoker - smoking cessation education provided: No Alcohol: None Drugs: Denies - Home Medications Home Medications: Ambulatory Orders Medication Instructions Recorded Hydroxychloroquine Sulfate 200 mg PO BID #60 tablet 08/30/16 [Plaquenil] Losartan [Cozaar] 25 mg PO DAILY #30 tab 08/30/16 Mirtazapine [Remeron] 30 mg PO HS #30 tab 08/30/16 rOPINIRole [Requip] 1 mg PO HS #30 08/30/16 Alprazolam [Xanax] 0.5 mg PO HS 11/14/16 Clopidogrel [Plavix] 75 mg PO DAILY 11/14/16 Escitalopram [Lexapro] 5 mg PO HS 11/14/16 Escitalopram [Lexapro] 10 mg PO HS 11/14/16 Folic Acid 1 mg PO DAILY 11/14/16 Hyoscyamine [Levsin] 1 tab PO HS PRN 11/14/16 Loratadine/Pseudoephedrine 1 tab PO HS 11/14/16 [Loratadine-D 12 Hour Tablet] Meclizine [Antivert] 1 tab PO TID PRN 11/14/16 Pantoprazole [Protonix EC Tab] 40 mg PO DAILY 11/14/16 Prednisone [Kiarra] 5 mg PO DAILY 11/14/16 Ranitidine HCl [Zantac] 150 mg PO DAILY 11/14/16 Dexlansoprazole [Dexilant] 30 mg PO DAILY 12/25/16 Metoprolol Succinate [Toprol XL] 12.5 mg PO DAILY #30 tab 12/26/16 - Allergies Allergies/Adverse Reactions: Allergies Allergy/AdvReac Type Severity Reaction Status Date / Time No Known Allergies Allergy Verified 08/29/16 12:12 Review of Systems ROS Statement: Except As Marked, All Systems Reviewed And Found Negative Constitutional: Negative for: Fever Gastrointestinal: Positive for: Vomiting, Abdominal Pain, Diarrhea Physical Exam - Reviewed Nursing Documentation Reviewed: Yes Vital Signs Reviewed: Yes - Physical Exam Appears: Positive for: Non-toxic (but appears chronically ill), No Acute Distress Head Exam: Positive for: ATRAUMATIC, NORMOCEPHALIC Skin: Positive for: Normal Color, Warm, Dry Eye Exam: Positive for: EOMI, Normal appearance, PERRL Neck: Positive for: Normal, Painless ROM, Supple Cardiovascular/Chest: Positive for: Regular Rate, Rhythm. Negative for: Murmur Respiratory: Positive for: Normal Breath Sounds. Negative for: Accessory Muscle Use, Respiratory Distress Gastrointestinal/Abdominal: Positive for: Soft, Tenderness (Right upper quadrant tenderness) Extremity: Positive for: Normal ROM. Negative for: Pedal Edema, Deformity Neurologic/Psych: Positive for: Alert, Oriented - Laboratory Results Result Diagrams: 12/26/16 04:30 12/26/16 04:30 - ECG O2 Sat by Pulse Oximetry: 99 (RA) Pulse Ox Interpretation: Normal Medical Decision Making Medical Decision Making: Impression: Abdominal pain, rule out appendicitis and cholecystitis Time: 13:44 Initial Plan: --CMP --Lipase --CBC --NS IV 1000 ml at 150 mls/hr --Pepcid 20 mg IV --Zofran 4 mg IV --Iohexol 50 ml PO --Pending CT Abd/Pelvis PO & IV contrast Time: 14:07 --Patient admitted to ED-OBS for abdominal pain *See ED-OBS for further documentation Scribe Attestation: Documented by Radha Greer, acting as a scribe for Kane Pablo MD Provider Scribe Attestation: All medical record entries made by the Scribe were at my direction and personally dictated by me. I have reviewed the chart and agree that the record accurately reflects my personal performance of the history, physical exam, medical decision making, and the department course for this patient. I have also personally directed, reviewed, and agree with the discharge instructions and disposition. ED OBSERVATION Date of observation admission: 12/25/16 Time of observation admission: 14:07 - Observation admission statement Patient is being placed in observation because:: Abdominal pain - Goals of Observation Goals of observation are:: Time extensive work up - Progress Note Progress Note: 12/25/16 Time: 14:00 --Patient is resting with stable vitals. Pending CT scan. Time: 15:30 --Patient continues to rest comfortably. Vital signs stable. Time: 17:00 --Patient is resting with stable vitals. Still pending CT Abd/Pelvis. --Patient is signed out by me to Dr. Mcgraw, pending CT and final disposition. Disposition - Clinical Impression Clinical Impression: Bradycardia, Weakness generalized - Patient ED Disposition Is Patient to be Admitted: Transfer of Care - Disposition Disposition: Transfer of Care Disposition Time: 17:00 Condition: FAIR Patient Signed Over To: Jaclyn Mcgraw Handoff Comments: pending CT
[2016-12-25 14:33] LABS: ALB/GLOB RATIO 1.1 (1.0-2.1); ALKALINE PHOSPHATASE 95 U/L (38-126); ALT/SGPT 32 U/L (9-52); AST/SGOT 34 U/L (14-36); BILIRUBIN,TOTAL 0.6 mg/dl (0.2-1.3); BLOOD UREA NITROGEN 19 mg/dl (7-17); CALCIUM 9.4 mg/dL (8.4-10.2); CARBON DIOXIDE 23 mmol/L (22-30); CHLORIDE 108 mmol/L (98-107); GFR AFRICAN-AMERICAN > 60; GLUCOSE,RANDOM 124 mg/dL (65-105); LIPASE 134 U/L (23-300); POTASSIUM 4.2 MMOL/L (3.6-5.0); SODIUM 143 mmol/l (132-148); TOTAL PROTEIN 7.8 G/DL (6.3-8.2)
[2016-12-25] MEDS ORDERED: Iohexol 300 100 ML IJ ONE (16:42)
[2016-12-25] MEDS ORDERED: Sodium Chloride 0.9% 50 ML IV ONE (16:42)
--- NOTE | 2016-12-25 17:26 | ED PDOC ---
- Laboratory Results Result Diagrams: 12/25/16 13:50 12/25/16 13:50 - ECG O2 Sat by Pulse Oximetry: 99 (RA) Pulse Ox Interpretation: Normal Medical Decision Making Medical Decision Making: Receiving sign out: Patient signed out to me by Dr. Pablo at [address] results. Scribe Attestation: Documented by Alina Sr acting as a scribe for Jaclyn Mcgraw MD. Provider Attestation: All medical record entries made by the Scribe were at my direction and personally dictated by me. I have reviewed the chart and agree that the record accurately reflects my personal performance of the history, physical exam, medical decision making, and the department course for this patient. I have also personally directed, reviewed, and agree with the discharge instructions and disposition. Disposition - Clinical Impression Clinical Impression: Bradycardia, Weakness generalized - POA Present On Arrival: None - Disposition Disposition: Hospitalized as Observation Patient Disposition Time: 14:00 Condition: FAIR ED OBSERVATION Date of observation admission: 12/25/16 Time of observation admission: 14:07 - Observation admission statement Patient is being placed in observation because:: patient with abdominal pain - Goals of Observation Goals of observation are:: imaging studies, re-evaluation and resolution of symptoms - Progress Note Progress Note: 12/25/16 17:00 Patient transferred to [place] by Dr. Pablo 12/25/16 17:17 Patient reports continued nausea and abdominal pain. IV Zofran and PO Bentyl ordered. 12/25/16 18:12 CT AP IMPRESSION: No acute findings related to/accounting for the clinical presentation. Additional benign and/or incidental findings described above. 12/25/16 18:22 Upon reevaluation, patient without tenderness. Case discussed with Dr. Navarro who recommends GI cocktail and if pain is controlled, patient to follow up in his office tomorrow. 12/25/16 18:36 DW findings with pt and sister. Sister reports that her biggest concern that for the last 2 days patient has been extremely weak, not active, and only staying in bed all day long. Pt admits that she has been weak and she does not really know why. This is in addition to her abdominal pain and weakness. Marked bradycardia. 12/25/16 19:20 CT Head FINDINGS: Brain: There is dilatation of sulci gyri and ventricles. There is no midline shift. There is decreased attenuation in periventricular white matter. There is encephalomalacia in both frontal lobes, unchanged. There is encephalomalacia in the left temporal and both parietal lobes, unchanged. There are no focal masses. There are no focal hemorrhages. Trivedi-white differentiation is visualized. Ventricles: See above Bones: Cranial vault is intact. Soft tissues: unremarkable Sinuses: There is no acute sinusitis. Ears and mastoids: Middle ears and mastoids are unremarkable. Orbits: Orbital contents are unremarkable. IMPRESSION: Atrophy and small vessel disease; multiple old infarcts; no bleed If there is suspicion for acute infarct, MRI advised DW Dr Marino Hospitalist for observation for symptomatic bradycardia
[2016-12-25 17:54] LABS: RBC URINE 2 /hpf (0-3); URINE BILIRUBIN NEGATIVE (NEGATIVE); URINE BLOOD NEGATIVE (NEGATIVE); URINE COLOR YELLOW (YELLOW); URINE GLUCOSE (UA) NEG (Normal); URINE KETONE NEGATIVE (NEGATIVE); URINE LEUKOCYTE ESTERASE NEG Leu/uL (Negative); URINE PROTEIN 100 mg/dL (NEGATIVE); URINE UROBILINOGEN 0.2-1.0 mg/dL (0.2-1.0); WBC URINE 2 /hpf (0-5)
--- NOTE | 2016-12-25 18:14 | CT ---
PROCEDURE: CT Abdomen and Pelvis with contrast HISTORY: abdominal pain COMPARISON: 08/14/2016 abdominal ultrasound TECHNIQUE: Contrast dose: 90 cc Omnipaque 300 Radiation dose: Total exam DLP = mGy-cm. This CT exam was performed using one or more of the following dose reduction techniques: Automated exposure control, adjustment of the mA and/or kV according to patient size, and/or use of iterative reconstruction technique. FINDINGS: LOWER THORAX: Unremarkable. LIVER: Unremarkable. No gross lesion or ductal dilatation. GALLBLADDER AND BILE DUCTS: Unremarkable. PANCREAS: Unremarkable. No gross lesion or ductal dilatation. SPLEEN: The spleen is not visualized. Similar findings noted on the prior abdominal ultrasound. ADRENALS: Unremarkable. No mass. KIDNEYS AND URETERS: Unremarkable. No hydronephrosis. No solid mass. VASCULATURE: Unremarkable. No aortic aneurysm. IVC filter identified below the renal vessels BOWEL: Diverticulosis without an acute inflammatory component or other associated pathologic process. Thickening of the wall of the duodenum a nonspecific finding can be seen with duodenitis. APPENDIX: Normal appendix. PERITONEUM: Unremarkable. No free fluid. No free air. LYMPH NODES: Unremarkable. No enlarged lymph nodes. BLADDER: Unremarkable. REPRODUCTIVE: Unremarkable. BONES: Multiple compression deformities lower thoracic and upper lumbar spine resulting an thoracolumbar kyphosis. OTHER FINDINGS: None. IMPRESSION: No acute findings related to/accounting for the clinical presentation. Additional benign and/or incidental findings described above.
[2016-12-25 19:18] LABS: THYROID STIMULATING HORMONE 1.79 mIU/ML (0.46-4.68)
[2016-12-25 19:19] LABS: TROPONIN I 0.056 ng/mL (0.00-0.120)
--- NOTE | 2016-12-25 19:29 | CT ---
EXAM: CT Head Without Intravenous Contrast EXAM DATE/TIME: 12/25/2016 6:41 PM CLINICAL HISTORY: 61 years old, female; Signs and symptoms; Other: Weakness; Additional info: Weakness h/o CVA TECHNIQUE: Axial computed tomography images of the head/brain without intravenous contrast. All CT scans at this facility use one or more dose reduction techniques, viz.: automated exposure control; ma/kV adjustment per patient size (including targeted exams where dose is matched to indication; i.e. head); or iterative reconstruction technique. Coronal and sagittal reformatted images were created and reviewed. COMPARISON: CT - HEAD W/O CONTRAST 09/19/2016 9:20:37 PM FINDINGS: Brain: There is dilatation of sulci gyri and ventricles. There is no midline shift. There is decreased attenuation in periventricular white matter. There is encephalomalacia in both frontal lobes, unchanged. There is encephalomalacia in the left temporal and both parietal lobes, unchanged. There are no focal masses. There are no focal hemorrhages. Trivedi-white differentiation is visualized. Ventricles: See above Bones: Cranial vault is intact. Soft tissues: unremarkable Sinuses: There is no acute sinusitis. Ears and mastoids: Middle ears and mastoids are unremarkable. Orbits: Orbital contents are unremarkable. IMPRESSION: Atrophy and small vessel disease; multiple old infarcts; no bleed If there is suspicion for acute infarct, MRI advised
--- NOTE | 2016-12-25 19:56 | CP.PCM.HP ---
History of Present Illness - History of Present Illness History of Present Illness: 61 yo female with history of SLE, COPD, Pulmonary HTN, CVA and CAD brought in by sister because of RLQ pain since 3 weeks ago. Pain was continuous, non- radiating and vague in character associated with loose bowel movement. Saw Dr Navarro and was given some medications including Pepcid but did not afford any relief. Accompanying symptoms were generalized weakness keeping her bed bound for 2 days and dizziness. Denied nausea, vomiting, fever or chills. Present on Admission - Present on Admission Any Indicators Present on Admission: No History of DVT/PE: No History of Uncontrolled Diabetes: No Urinary Catheter: No Decubitus Ulcer Present: No Review of Systems - Review of Systems All systems: reviewed and no additional remarkable complaints except (aside from those mentioned above, 12 point system review were negative by me) Past Patient History - Infectious Disease Hx of Infectious Diseases: None - Tetanus Immunizations Tetanus Immunization: Unknown - Past Medical History & Family History Past Medical History?: Yes Past Family History: Reviewed and not pertinent - Past Social History Smoking Status: Never Smoked Alcohol: None Drugs: Denies Home Situation {Lives}: With Family - CARDIAC Hx Heart Attack: Yes Hx Hypercholesterolemia: Yes Hx Hypertension: Yes - PULMONARY Hx Asthma: Yes Hx Chronic Obstructive Pulmonary Disease (COPD): Yes Hx Sleep Apnea: Yes - NEUROLOGICAL Hx Seizures: Yes Hx Transient Ischemic Attacks (TIA): Yes - HEENT Hx HEENT Problems: No - RENAL Hx Chronic Kidney Disease: No - ENDOCRINE/METABOLIC Hx Endocrine Disorders: No Hx Systemic Lupus Erythematosus: Yes - HEMATOLOGICAL/ONCOLOGICAL Hx Anemia: Yes Hx Human Immunodeficiency Virus (HIV): No - INTEGUMENTARY Hx Dermatological Problems: No - MUSCULOSKELETAL/RHEUMATOLOGICAL Hx Arthritis: Yes Hx Osteoporosis: Yes Hx Rheumatoid Arthritis: Yes - GASTROINTESTINAL Hx Gastrointestinal Disorders: Yes Hx Gastritis: Yes Hx Ulcer: Yes - GENITOURINARY/GYNECOLOGICAL Hx Genitourinary Disorders: Yes Hx Incontinence: Yes - PSYCHIATRIC Hx Anxiety: Yes Hx Depression: Yes - SURGICAL HISTORY Hx Appendectomy: Yes Hx [place] St[place]: [place] [facility] [place] - ANESTHESIA Hx Anesthesia: Yes Hx Anesthesia Reactions: No Hx Malignant Hyperthermia: No Meds Allergies/Adverse Reactions: Allergies Allergy/AdvReac Type Severity Reaction Status Date / Time No Known Allergies Allergy Verified 08/29/16 12:12 Physical Exam - Constitutional Appears: No Acute Distress, Other (obese) - Head Exam Head Exam: ATRAUMATIC - Eye Exam Eye Exam: absent: Scleral icterus - ENT Exam ENT Exam: Mucous Membranes Moist - Neck Exam Neck exam: Negative for: Meningismus - Respiratory Exam Respiratory Exam: absent: Rhonchi, Wheezes, Respiratory Distress - Cardiovascular Exam Cardiovascular Exam: Bradycardia - GI/Abdominal Exam GI & Abdominal Exam: Soft. absent: Guarding, Rebound, Tenderness - Rectal Exam Rectal Exam: Deferred - Extremities Exam Extremities exam: Negative for: pedal edema - Neurological Exam Neurological exam: Alert, Oriented x3 - Psychiatric Exam Psychiatric exam: Flat Affect - Skin Skin Exam: Dry, Intact Results - Vital Signs Recent Vital Signs: Last Vital Signs Temp 97 F L 12/25/16 12:28 Pulse 62 12/25/16 12:28 Resp 18 12/25/16 12:28 BP 141/82 12/25/16 12:28 Pulse Ox 99 12/25/16 19:35 - Labs Result Diagrams: 12/25/16 13:50 12/25/16 13:50 Labs: Laboratory Results - last 24 hr 12/25/16 12/25/16 12/25/16 13:50 13:50 17:40 WBC 7.2 RBC 3.86 Hgb 11.2 L Hct 35.8 MCV 92.7 MCH 29.1 MCHC 31.4 L RDW 21.8 H Plt Count 92 L MPV 9.8 Neut % (Auto) 64.9 Lymph % (Auto) 26.7 [place] % (Auto) 7.5 Eos % (Auto) 0.6 Baso % (Auto) 0.3 Neut # 4.7 Lymph # 1.9 [place] # 0.5 Eos # 0.0 Baso # 0.0 Sodium 143 Potassium 4.2 Chloride 108 H Carbon Dioxide 23 Anion Gap 16 BUN 19 H Creatinine 0.9 Est GFR ( Amer) > 60 Est GFR (Non-Af Amer) > 60 Random Glucose 124 H Calcium 9.4 Total Bilirubin 0.6 AST 34 ALT 32 Alkaline Phosphatase 95 Troponin I NT-Pro-B Natriuret Pep Total Protein 7.8 Albumin 4.1 Globulin 3.7 Albumin/Globulin Ratio 1.1 Lipase 134 TSH 3rd Generation Urine Color Yellow Urine Clarity Slighty-cloudy Urine pH 6.0 Ur Specific [place] 1.024 Urine Protein 100 Urine Glucose (UA) Neg Urine Ketones Negative Urine Blood Negative Urine Nitrate Negative Urine Bilirubin Negative Urine Urobilinogen 0.2-1.0 Ur Leukocyte Esterase Neg Urine RBC (Auto) 2 Urine Microscopic WBC 2 Ur Squamous Epith Cells 3 12/25/16 18:50 WBC RBC Hgb Hct MCV MCH MCHC RDW Plt Count MPV Neut % (Auto) Lymph % (Auto) [place] % (Auto) Eos % (Auto) Baso % (Auto) Neut # Lymph # [place] # Eos # Baso # Sodium Potassium Chloride Carbon Dioxide Anion Gap BUN Creatinine Est GFR ( Amer) Est GFR (Non-Af Amer) Random Glucose Calcium Total Bilirubin AST ALT Alkaline Phosphatase Troponin I 0.0560 NT-Pro-B Natriuret Pep 3430 H Total Protein Albumin Globulin Albumin/Globulin Ratio Lipase TSH 3rd Generation 1.79 Urine Color Urine Clarity Urine pH Ur Specific [place] Urine Protein Urine Glucose (UA) Urine Ketones Urine Blood Urine Nitrate Urine Bilirubin Urine Urobilinogen Ur Leukocyte Esterase Urine RBC (Auto) Urine Microscopic WBC Ur Squamous Epith Cells Assessment & Plan (1) Weakness generalized Status: Acute Comment: place on observation in telemetry. probably secondary bradycardia. ECHO (Jul, 2016): normal LV function, Pulmonary HTN and Tricuspid Regurgitation (2) Bradycardia Status: Acute Comment: cardiology consult with Dr Goel. hold Metoprolol for HR < 65. continue monitoring in telemetry (3) Abdominal pain Status: Acute Comment: GI consult with Dr Navarro. Protonix 40mg PO daily. Morphine 2mg IV q 4hrs prn for moderate abdl pain (4) CAD (coronary artery disease) Status: Chronic Priority: Medium Comment: denied chest pain or SOB. continue ASA, statin and Metoprolol but hold below 65 (5) COPD (chronic obstructive pulmonary disease) Status: Chronic Priority: High Comment: Duoneb via nebuilizer q 4hrs prn for SOB/wheezing
[2016-12-25] MEDS ORDERED: Patient's Own Med (Ropinirole [Requip] 1 MG) PO SCH (22:00)
[2016-12-26 05:33] LABS: BASO % 0.5 % (0.0-2.0); EOS # 0.1 K/uL (0.0-0.7); EOS % 1.4 % (0.0-4.0); HEMATOCRIT 33.8 % (34.0-47.0); LYMPH # 1.8 K/uL (1.0-4.3); LYMPH % 23.7 % (20.0-40.0); MEAN CELL VOLUME 93.7 fl (81.0-99.0); MEAN CORPUSCULAR HEMOGLOBIN 28.5 pg (27.0-31.0); MEAN CORPUSCULAR HGB CONC 30.4 g/dL (33.0-37.0); MEAN PLATELET VOLUME 9.8 fl (7.2-11.7); MONO # 1.3 K/uL (0.0-0.8); MONO % 17.3 % (0.0-10.0); NEUT # 4.4 K/uL (1.8-7.0); NEUT % 57.1 % (50.0-75.0); NRBC % 0.6 % (0.0-0.0); RED CELL DISTRIBUTION WIDTH 21.3 % (11.5-14.5); WHITE BLOOD COUNT 7.7 K/uL (4.8-10.8)
[2016-12-26 05:41] LABS: BLOOD UREA NITROGEN 17 mg/dl (7-17); CALCIUM 8.7 mg/dL (8.4-10.2); CARBON DIOXIDE 22 mmol/L (22-30); CHLORIDE 110 mmol/L (98-107); GFR AFRICAN-AMERICAN > 60; GLUCOSE,RANDOM 71 mg/dL (65-105); POTASSIUM 4.3 MMOL/L (3.6-5.0); SODIUM 144 mmol/l (132-148)
[2016-12-26] MEDS ORDERED: Influenza Vaccine 18yr & older 0.5 ML/45 MCG SYR IM ONE (06:00)
[2016-12-26 08:03] VITALS: RESP 18
[2016-12-26] MEDS ORDERED: Metoprolol Succinate 25 mg XL Tab PO SCH ×2 (09:00)
[2016-12-26] MEDS ORDERED: Enoxaparin 40 mg Syringe SC SCH (09:00)
[2016-12-26] MEDS ORDERED: Pantoprazole 40 mg EC Tab PO SCH (09:00)
[2016-12-26 12:05] VITALS: BP 127/68; PULSE 73; TEMP 97.5
--- NOTE | 2016-12-26 16:38 | CP.PCM.DIS ---
Provider - Provider Date of Admission: 12/25/16 14:07 Attending physician: Zackary Marino MD Time Spent in preparation of Discharge (in minutes): 25 Diagnosis - Discharge Diagnosis (1) Weakness generalized Status: Acute Comment: felt better (2) Bradycardia Status: Acute Comment: metoprolol succinate reduced to 12.5mg PO daily, to hold below 60 HR (3) Abdominal pain Status: Acute Comment: relieved (4) CAD (coronary artery disease) Status: Chronic Priority: Medium Comment: continue Plavix and BB (5) COPD (chronic obstructive pulmonary disease) Status: Chronic Priority: High Comment: asymptomatic Hospital Course - Lab Results Lab Results: Most Recent Lab Values WBC 7.7 K/uL (4.8-10.8) 12/26/16 04:30 RBC 3.61 Mil/uL (3.80-5.20) L 12/26/16 04:30 Hgb 10.3 g/dL (12.0-16.0) L 12/26/16 04:30 Hct 33.8 % (34.0-47.0) L 12/26/16 04:30 MCV 93.7 fl (81.0-99.0) 12/26/16 04:30 MCH 28.5 pg (27.0-31.0) 12/26/16 04:30 MCHC 30.4 g/dL (33.0-37.0) L 12/26/16 04:30 RDW 21.3 % (11.5-14.5) H 12/26/16 04:30 Plt Count 78 K/uL (130-400) L 12/26/16 04:30 MPV 9.8 fl (7.2-11.7) 12/26/16 04:30 Neut % (Auto) 57.1 % (50.0-75.0) 12/26/16 04:30 Lymph % (Auto) 23.7 % (20.0-40.0) 12/26/16 04:30 [place] % (Auto) 17.3 % (0.0-10.0) H 12/26/16 04:30 Eos % (Auto) 1.4 % (0.0-4.0) 12/26/16 04:30 Baso % (Auto) 0.5 % (0.0-2.0) 12/26/16 04:30 Neut # 4.4 K/uL (1.8-7.0) 12/26/16 04:30 Lymph # 1.8 K/uL (1.0-4.3) 12/26/16 04:30 [place] # 1.3 K/uL (0.0-0.8) H 12/26/16 04:30 Eos # 0.1 K/uL (0.0-0.7) 12/26/16 04:30 Baso # 0.0 K/uL (0.0-0.2) 12/26/16 04:30 Sodium 144 mmol/l (132-148) 12/26/16 04:30 Potassium 4.3 MMOL/L (3.6-5.0) 12/26/16 04:30 Chloride 110 mmol/L (98-107) H 12/26/16 04:30 Carbon Dioxide 22 mmol/L (22-30) 12/26/16 04:30 Anion Gap 16 (10-20) 12/26/16 04:30 BUN 17 mg/dl (7-17) 12/26/16 04:30 Creatinine 0.9 mg/dL (0.7-1.2) 12/26/16 04:30 Est GFR ( Amer) > 60 12/26/16 04:30 Est GFR (Non-Af Amer) > 60 12/26/16 04:30 Random Glucose 71 mg/dL (65-105) 12/26/16 04:30 Calcium 8.7 mg/dL (8.4-10.2) 12/26/16 04:30 Total Bilirubin 0.6 mg/dl (0.2-1.3) 12/25/16 13:50 AST 34 U/L (14-36) 12/25/16 13:50 ALT 32 U/L (9-52) 12/25/16 13:50 Alkaline Phosphatase 95 U/L (38-126) 12/25/16 13:50 Troponin I 0.0560 ng/mL (0.00-0.120) 12/25/16 18:50 NT-Pro-B Natriuret Pep 3430 pg/ml (0-900) H 12/25/16 18:50 Total Protein 7.8 G/DL (6.3-8.2) 12/25/16 13:50 Albumin 4.1 g/dL (3.5-5.0) 12/25/16 13:50 Globulin 3.7 gm/dL (2.2-3.9) 12/25/16 13:50 Albumin/Globulin Ratio 1.1 (1.0-2.1) 12/25/16 13:50 Lipase 134 U/L (23-300) 12/25/16 13:50 TSH 3rd Generation 1.79 mIU/ML (0.46-4.68) 12/25/16 18:50 Urine Color Yellow (YELLOW) 12/25/16 17:40 Urine Clarity Slighty-cloudy (Clear) 12/25/16 17:40 Urine pH 6.0 (5.0-8.0) 12/25/16 17:40 Ur Specific [place] 1.024 (1.003-1.030) 12/25/16 17:40 Urine Protein 100 mg/dL (NEGATIVE) 12/25/16 17:40 Urine Glucose (UA) Neg mg/dL (Normal) 12/25/16 17:40 Urine Ketones Negative mg/dL (NEGATIVE) 12/25/16 17:40 Urine Blood Negative (NEGATIVE) 12/25/16 17:40 Urine Nitrate Negative (NEGATIVE) 12/25/16 17:40 Urine Bilirubin Negative (NEGATIVE) 12/25/16 17:40 Urine Urobilinogen 0.2-1.0 mg/dL (0.2-1.0) 12/25/16 17:40 Ur Leukocyte Esterase Neg Marcel[place]/uL (Negative) 12/25/16 17:40 Urine RBC (Auto) 2 /hpf (0-3) 12/25/16 17:40 Urine Microscopic WBC 2 /hpf (0-5) 12/25/16 17:40 Ur Squamous Epith Cells 3 /hpf (0-5) 12/25/16 17:40 - Hospital Course Hospital Course: 61 yo female with history of SLE, COPD, Pulmonary HTN, CVA and CAD brought in because of RLQ pain associated with LBM. 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 Patient was discharged in stable condition without abdominal pain. Discharge Exam - Head Exam Head Exam: ATRAUMATIC - Eye Exam Eye Exam: absent: Scleral icterus - ENT Exam ENT Exam: Mucous Membranes Moist - Respiratory Exam Respiratory Exam: absent: Rales, Rhonchi, Wheezes, Respiratory Distress - Cardiovascular Exam Cardiovascular Exam: Bradycardia, +S1, +S2 - GI/Abdominal Exam GI & Abdominal Exam: Soft. absent: Tenderness - Rectal Exam Rectal Exam: Deferred - Neurological Exam Neurological exam: Alert, Oriented x3 - Psychiatric Exam Psychiatric exam: Normal Affect - Skin Skin Exam: Dry, Intact Discharge Plan - Follow Up Plan Condition: FAIR Disposition: HOME/ ROUTINE
[2016-12-26 22:12] VITALS: O2SAT 99
--- NOTE | 2016-12-27 01:21 | CARD ---
APPROVED REPORT EKG Measurement Heart [id number] [id number] [id number] <Conclusion> Sinus bradycardia Nonspecific T wave abnormality Abnormal ECG
== END 2016-12-26 14:15 | disposition home or self-care (01) ==
LOC: H.ER 12:23 → H.EROBSV 14:07 → H.ERHOLD 20:02 → H.TEL 21:21
DX: R53.1 Weakness (principal); R00.1 Bradycardia, unspecified; R10.11 Right upper quadrant pain; I25.10 Atherosclerotic heart disease of native coronary artery without angina pectoris; Z95.5 Presence of coronary angioplasty implant and graft; Z86.73 Personal history of transient ischemic attack (TIA), and cerebral infarction without residual deficits; M32.9 Systemic lupus erythematosus, unspecified; M81.0 Age-related osteoporosis without current pathological fracture; M06.9 Rheumatoid arthritis, unspecified; E78.00 Pure hypercholesterolemia, unspecified; G47.30 Sleep apnea, unspecified; I27.20 Pulmonary hypertension, unspecified; J44.9 Chronic obstructive pulmonary disease, unspecified; J45.909 Unspecified asthma, uncomplicated; Z86.718 Personal history of other venous thrombosis and embolism; I11.0 Hypertensive heart disease with heart failure; I50.9 Heart failure, unspecified; K29.70 Gastritis, unspecified, without bleeding; M19.90 Unspecified osteoarthritis, unspecified site
CPT/HCPCS: 36415; 70450; 74177; 80048; 80053; 81003; 83690; 83880; 84443; 84484; 85025; 87086; 90471; 96374; 99283; G0378; J1650; J2405; J2765; J7040; Q2035; Q9966; Q9967

== ENCOUNTER 2016-12-27 12:38 | Emergency (ER) | payer MEDICAID ==
[2016-12-27 12:38] VITALS: BMI 39.6
--- NOTE | 2016-12-27 13:31 | ED PDOC ---
HPI: Abdomen Time Seen by Provider: 12/27/16 13:11 Chief Complaint (Nursing): Abdominal Pain Chief Complaint (Provider): Abdominal Pain History Per: Patient History/Exam Limitations: no limitations Onset/Duration Of Symptoms: Days (x 1 year) Current Symptoms Are (Timing): Still Present Severity: Severe Additional Complaint(s): Jess is a 61 y/o female presenting to the ED for right-side abdominal pain and back pain, ongoing for 1 year. Treated with Percocet in past, tramadol recently , as well as Ibuprofen and Tylenol. Seen here last night and had a CT with PO contrast, and was discharged home. Denies vomiting, diarrhea, intoxication, fever, chills, and urinary symptoms. PMD: Magdalena Albright Past Medical History Reviewed: Historical Data, Nursing Documentation, Vital Signs Vital Signs: Last Vital Signs Temp 98.6 F 12/27/16 13:04 Pulse 82 12/27/16 13:04 Resp 16 12/27/16 13:04 BP 123/80 12/27/16 13:04 Pulse Ox 90 L 12/27/16 16:08 - Medical History PMH: Anemia, Anxiety, Arthritis, Asthma, Back Problems (chronic back pain), CAD , CHF, COPD, CVA (x3), Depression, Diverticulitis, Deep Vein Thrombosis, Gastritis, HTN, Hypercholesterolemia, Osteoporosis, Peripheral Edema, Rheumatoid Arthritis, Seizures, Sleep Apnea, TIA Denies: HIV, Chronic Kidney Disease Other PMH: Colitis - Surgical History Surgical History: Appendectomy, Coronary Stent (x2 [place] and [facility] [place]), C- Section (x2) Denies: Cholecystectomy Other surgeries: bunion surgery - Family History Family History: States: Unknown Family Hx - Social History Current smoker - smoking cessation education provided: No Alcohol: None Drugs: Denies - Home Medications Home Medications: Ambulatory Orders Medication Instructions Recorded Hydroxychloroquine Sulfate 200 mg PO BID #60 tablet 08/30/16 [Plaquenil] Losartan [Cozaar] 25 mg PO DAILY #30 tab 08/30/16 Mirtazapine [Remeron] 30 mg PO HS #30 tab 08/30/16 rOPINIRole [Requip] 1 mg PO HS #30 08/30/16 Alprazolam [Xanax] 0.5 mg PO HS 11/14/16 Clopidogrel [Plavix] 75 mg PO DAILY 11/14/16 Escitalopram [Lexapro] 5 mg PO HS 11/14/16 Escitalopram [Lexapro] 10 mg PO HS 11/14/16 Folic Acid 1 mg PO DAILY 11/14/16 Hyoscyamine [Levsin] 1 tab PO HS PRN 11/14/16 Loratadine/Pseudoephedrine 1 tab PO HS 11/14/16 [Loratadine-D 12 Hour Tablet] Meclizine [Antivert] 1 tab PO TID PRN 11/14/16 Pantoprazole [Protonix EC Tab] 40 mg PO DAILY 11/14/16 Prednisone [Kiarra] 5 mg PO DAILY 11/14/16 Ranitidine HCl [Zantac] 150 mg PO DAILY 11/14/16 Dexlansoprazole [Dexilant] 30 mg PO DAILY 12/25/16 Metoprolol Succinate [Toprol XL] 12.5 mg PO DAILY #30 tab 12/26/16 Mineral Oil [Fleet Mineral Oil 1 ml RC Q72H #3 nma 12/27/16 Enema 135 Ml] Naloxegol Oxalate [Movantik] 25 mg PO DAILY #15 tablet 12/27/16 - Allergies Allergies/Adverse Reactions: Allergies Allergy/AdvReac Type Severity Reaction Status Date / Time No Known Allergies Allergy Verified 12/27/16 13:04 Review of Systems ROS Statement: Except As Marked, All Systems Reviewed And Found Negative Constitutional: Negative for: Fever, Chills Respiratory: Positive for: Shortness of Breath Gastrointestinal: Positive for: Abdominal Pain (Right). Negative for: Vomiting , Diarrhea Genitourinary Female: Negative for: Dysuria, Frequency, Incontinence Musculoskeletal: Positive for: Back Pain (Right) Physical Exam - Reviewed Nursing Documentation Reviewed: Yes Vital Signs Reviewed: Yes - Physical Exam Appears: Positive for: No Acute Distress, Uncomfortable (Obese female, in moderate discomfort) Head Exam: Positive for: ATRAUMATIC, NORMAL INSPECTION, NORMOCEPHALIC Skin: Positive for: Normal Color, Warm, Dry Eye Exam: Positive for: EOMI, Normal appearance, PERRL Neck: Positive for: Normal, Painless ROM Cardiovascular/Chest: Positive for: Regular Rate, Rhythm. Negative for: Murmur Respiratory: Positive for: Wheezing, Other (On auscultation, lungs are clear anteriorly but bilateral wheezing posteriorly) Gastrointestinal/Abdominal: Positive for: Bowel Sounds (normal in all four quadrants), Soft, Tenderness (right upper quadrant and right lower quadrant ) Back: Positive for: Normal Inspection, R CVA Tenderness. Negative for: L CVA Tenderness Extremity: Positive for: Normal ROM. Negative for: Pedal Edema, Deformity, Other (Cyanosis) Neurologic/Psych: Positive for: Alert, Oriented - Laboratory Results Result Diagrams: 12/27/16 15:44 12/27/16 15:44 - ECG O2 Sat by Pulse Oximetry: 90 (NC) Pulse Ox Interpretation: Abnormal Medical Decision Making Medical Decision Making: Time: 13:28 Initial Impression: Abdominal pain and back pain Initial Plan: --EKG --CMP --Lipase --Amylase --CBC --Urine dipstick --Urine culture --Urinalysis --X-Ray Obstructive series --US Abdomen Complete --Pending reevaluation Time: 15:00 X-RAY ABDOMINAL OBSTRUCTIVE: FINDINGS: CHEST: Lungs: There is mild pulmonary venous congestion. There is left basilar atelectasis. Cardiovascular: Normal size heart. No pulmonary vascular congestion. Pleura: No pleural fluid. No pneumothorax. Other findings: None. ABDOMEN AND PELVIS: Bowel: There is nonobstructive bowel gas pattern. There is oral contrast material trapped in left colonic diverticula. No evidence of mechanical obstruction. Free air: None BONES: There is diffuse bone mineralization and multilevel degenerative changes in the spine. Other findings: An infrarenal IVC filter remains in place. IMPRESSION: Left colonic diverticulosis. Nonobstructive bowel-gas pattern. Time: 15:45 US ABDOMEN COMPLETE: FINDINGS: LIVER: Measures 16.6 cm. There is diffuse increased echogenicity of the liver parenchyma with heterogeneous echotexture. No mass. No intrahepatic bile duct dilatation. GALLBLADDER: There are no gallstones, wall thickening or pericholecystic fluid. COMMON BILE DUCT: Measures 4.4 mm. No stones. No dilatation. PANCREAS: Unremarkable as visualized. No mass. No ductal dilatation. RIGHT KIDNEY: Measures 9.0 cm. Normal echogenicity. No calculus, mass, or hydronephrosis. LEFT KIDNEY: Measures 9.8 cm. Normal echogenicity. No calculus, mass, or hydronephrosis. SPLEEN: Normal in size and contour. No mass. AORTA: No aneurysmal dilatation. IVC: Unremarkable. OTHER FINDINGS: None. IMPRESSION: Diffuse increased echogenicity in the liver may reflect hepatic steatosis however parenchymal infectious/inflammatory etiologies cannot be entirely excluded. Clinical and laboratory correlation is advised. No cholelithiasis or biliary dilatation. Time: 15:46 --Enema soap and water x1 Scribe Attestation: Documented by Radha Greer, acting as a scribe for Winsome Hernandez MD Provider Scribe Attestation: All medical record entries made by the Scribe were at my direction and personally dictated by me. I have reviewed the chart and agree that the record accurately reflects my personal performance of the history, physical exam, medical decision making, and the department course for this patient. I have also personally directed, reviewed, and agree with the discharge instructions and disposition. patient well know to hospitalist service. Case reviewed with Dr. Salas. Labs normal. No indication for admission. X-ray shows copious stool Will d/c with rx for enema and Movantik Disposition - Clinical Impression Clinical Impression: Constipation by delayed colonic transit - Patient ED Disposition Is Patient to be Admitted: No Doctor Will See Patient In The: Office Counseled Patient/Family Regarding: Diagnosis, Need For Followup, Rx Given - Disposition Referrals: Deniz Albright MD [Family Provider] - Disposition: Routine/Home Disposition Time: 16:30 Condition: STABLE Prescriptions: Mineral Oil [Fleet Mineral Oil Enema 135 Ml] 1 ml RC Q72H #3 nma Naloxegol Oxalate [Movantik] 25 mg PO DAILY #15 tablet Forms: [employer] (Yi) Print Language: SERBIAN - POA Present On Arrival: None
--- NOTE | 2016-12-27 15:01 | RAD ---
PROCEDURE: Radiographs of the chest and abdomen (obstructive series) HISTORY: right sided abdominal pain COMPARISON: No prior. TECHNIQUE: AP radiograph of the chest, with upright and supine radiographs of the abdomen. FINDINGS: CHEST: Lungs: There is mild pulmonary venous congestion. There is left basilar atelectasis. Cardiovascular: Normal size heart. No pulmonary vascular congestion. Pleura: No pleural fluid. No pneumothorax. Other findings: None. ABDOMEN AND PELVIS: Bowel: There is nonobstructive bowel gas pattern. There is oral contrast material trapped in left colonic diverticula. No evidence of mechanical obstruction. Free air: None. Bones: There is diffuse bone demineralization and multilevel degenerative changes in the spine. Other findings: An infrarenal IVC filter remains in place. IMPRESSION: Left colonic diverticulosis. Nonobstructive bowel-gas pattern.
[2016-12-27 15:40] LABS: RBC URINE < 1 /hpf (0-3); URINE BILIRUBIN NEGATIVE (NEGATIVE); URINE BLOOD NEGATIVE (NEGATIVE); URINE COLOR STRAW (YELLOW); URINE GLUCOSE (UA) NEG (Normal); URINE KETONE NEGATIVE (NEGATIVE); URINE LEUKOCYTE ESTERASE NEG Leu/uL (Negative); URINE PROTEIN NEGATIVE (NEGATIVE); URINE UROBILINOGEN 0.2-1.0 mg/dL (0.2-1.0); WBC URINE < 1 /hpf (0-5)
--- NOTE | 2016-12-27 15:46 | US ---
HISTORY: Right sided abdominal pain COMPARISON: None. TECHNIQUE: Grayscale imaging was performed. FINDINGS: LIVER: Measures 16.6 cm. There is diffuse increased echogenicity of the liver parenchyma with heterogeneous echotexture. No mass. No intrahepatic bile duct dilatation. GALLBLADDER: There are no gallstones, wall thickening or pericholecystic fluid. COMMON BILE DUCT: Measures 4.4 mm. No stones. No dilatation. PANCREAS: Unremarkable as visualized. No mass. No ductal dilatation. RIGHT KIDNEY: Measures 9.0cm. Normal echogenicity. No calculus, mass, or hydronephrosis. LEFT KIDNEY: Measures 9.8cm. Normal echogenicity. No calculus, mass, or hydronephrosis. SPLEEN: Normal in size and contour. No mass. AORTA: No aneurysmal dilatation. IVC: Unremarkable. OTHER FINDINGS: None. IMPRESSION: Diffuse increased echogenicity in the liver may reflect hepatic steatosis however parenchymal infectious/ inflammatory etiologies cannot be entirely excluded. Clinical and laboratory correlation is advised. No cholelithiasis or biliary dilatation.
[2016-12-27 15:57] LABS: BASO % 0.3 % (0.0-2.0); EOS % 0.2 % (0.0-4.0); LYMPH # 0.9 K/uL (1.0-4.3); LYMPH % 14.8 % (20.0-40.0); MEAN CELL VOLUME 92.4 fl (81.0-99.0); MEAN CORPUSCULAR HEMOGLOBIN 28.5 pg (27.0-31.0); MEAN CORPUSCULAR HGB CONC 30.8 g/dL (33.0-37.0); MEAN PLATELET VOLUME 9.8 fl (7.2-11.7); MONO # 0.7 K/uL (0.0-0.8); MONO % 12.2 % (0.0-10.0); NEUT # 4.4 K/uL (1.8-7.0); NEUT % 72.5 % (50.0-75.0); NRBC % 0.8 % (0.0-0.0); RED CELL DISTRIBUTION WIDTH 21.9 % (11.5-14.5); WHITE BLOOD COUNT 6.1 K/uL (4.8-10.8)
[2016-12-27 16:05] LABS: ALKALINE PHOSPHATASE 92 U/L (38-126); ALT/SGPT 38 U/L (9-52); AMYLASE 80 U/L (30-110); AST/SGOT 35 U/L (14-36); BILIRUBIN,TOTAL 0.7 mg/dl (0.2-1.3); BLOOD UREA NITROGEN 13 mg/dl (7-17); CARBON DIOXIDE 27 mmol/L (22-30); CHLORIDE 111 mmol/L (98-107); GFR AFRICAN-AMERICAN > 60; GLUCOSE,RANDOM 107 mg/dL (65-105); LIPASE 98 U/L (23-300); POTASSIUM 4.8 MMOL/L (3.6-5.0); SODIUM 146 mmol/l (132-148)
[2016-12-27 16:59] VITALS: BP 128/68; PULSE 84; RESP 15; TEMP 98.2; O2SAT 95
--- NOTE | 2016-12-28 21:46 | CARD ---
APPROVED REPORT EKG Measurement Heart [id number] [id number] <Conclusion> Normal sinus rhythm Posterior infarct, age undetermined Abnormal ECG
== END 2016-12-27 17:00 | disposition home or self-care (01) ==
LOC: H.ER 12:38
DX: K29.00 Acute gastritis without bleeding (principal)

== ENCOUNTER 2017-03-25 10:28 | Emergency (ER) | payer MEDICAID ==
[2017-03-25 10:28] VITALS: BMI 39.6
[2017-03-25 10:45] VITALS: TEMP 97.6
[2017-03-25] MEDS ORDERED: Sodium Chloride 0.9% 1,000 ML IV STA (10:49)
[2017-03-25] MEDS ORDERED: Albuterol-Ipratrop 3 mg / 0.5 (3 ml) UD IH STA (10:49)
--- NOTE | 2017-03-25 10:53 | ED PDOC ---
HPI: CCC, URI, Sore Throat Time Seen by Provider: 03/25/17 10:42 Chief Complaint (Nursing): Weakness/Neurological Deficit History Per: Family Onset/Duration Of Symptoms: Other (2 weeks) Current Symptoms Are (Timing): Still Present Associated Symptoms: Cough. denies: Fever, Sputum Severity: Moderate Additional Complaint(s): Non productive cough assoc with generalized weakness and decreased apatite. No fever. Family has also noted dark colored stool. No vomiting Past Medical History Vital Signs: Last Vital Signs Temp 97.6 F 03/25/17 10:36 Pulse 54 L 03/25/17 11:56 Resp 18 03/25/17 11:56 BP 144/78 03/25/17 10:36 Pulse Ox 96 03/25/17 11:56 - Medical History PMH: Anemia, Anxiety, Arthritis, Asthma, Back Problems (chronic back pain), CAD , CHF, COPD, CVA (x3), Depression, Diverticulitis, Deep Vein Thrombosis, Gastritis, HTN, Hypercholesterolemia, Osteoporosis, Peripheral Edema, Rheumatoid Arthritis, Sleep Apnea, TIA Denies: HIV, Chronic Kidney Disease, Seizures (denies) - Surgical History Surgical History: Appendectomy, Coronary Stent ([place] and [facility] [place]), (x2) Denies: Cholecystectomy - Family History Family History: States: Unknown Family Hx - Home Medications Home Medications: Ambulatory Orders Medication Instructions Recorded Hydroxychloroquine Sulfate 200 mg PO BID #60 tablet 08/30/16 [Plaquenil] Mirtazapine [Remeron] 30 mg PO HS #30 tab 08/30/16 rOPINIRole [Requip] 1 mg PO HS #30 08/30/16 Alprazolam [Xanax] 0.5 mg PO HS 11/14/16 Clopidogrel [Plavix] 75 mg PO DAILY 11/14/16 Escitalopram [Lexapro] 5 mg PO HS 11/14/16 Escitalopram [Lexapro] 10 mg PO HS 11/14/16 Folic Acid 1 mg PO DAILY 11/14/16 Hyoscyamine [Levsin] 1 tab PO HS PRN 11/14/16 Loratadine/Pseudoephedrine 1 tab PO HS 11/14/16 [Loratadine-D 12 Hour Tablet] Meclizine [Antivert] 1 tab PO TID PRN 11/14/16 Pantoprazole [Protonix EC Tab] 40 mg PO DAILY 11/14/16 Prednisone [Kiarra] 5 mg PO DAILY 11/14/16 Ranitidine HCl [Zantac] 150 mg PO DAILY 11/14/16 Naloxegol Oxalate [Movantik] 25 mg PO DAILY #15 tablet 12/27/16 Pantoprazole Sodium [Protonix] 40 mg PO DAILY #30 tablet. 01/28/17 Albuterol 0.083% [Albuterol 3 ml IH TID PRN 03/25/17 Sulfate 3 Ml] Atorvastatin [Lipitor] 10 mg PO HS 03/25/17 Docusate Sodium [Stool Softener] 100 mg PO DAILY PRN 03/25/17 Lidocaine [Rectasmoothe] 1 appl TP DAILY PRN 03/25/17 Meloxicam [Mobic] 7.5 mg PO HS 03/25/17 Methotrexate 2.5 mg PO QWK 03/25/17 Metoprolol Succinate [Toprol XL] 1 tab PO DAILY 03/25/17 Mineral Oil [Fleet Mineral Oil 1 ml RC Q72H PRN 03/25/17 Enema 135 Ml] Ondansetron [Zofran] 4 mg PO TID PRN 03/25/17 Oseltamivir [Tamiflu] 75 mg PO BID #9 cap 03/25/17 Polyethylene Glycol/Polyvinyl 1 drop OP BID 03/25/17 [Artificial Tears] Prednisone [Kiarra] 5 mg PO BID 03/25/17 Promethazine DM [Phenergan DM 5 ml PO TID 03/25/17 Syrup] Tetrahydrz/Dext 70/Peg 400/Pvp [Hm 1 drop OP BID 03/25/17 Eye Drops Advanced Relief] - Allergies Allergies/Adverse Reactions: Allergies Allergy/AdvReac Type Severity Reaction Status Date / Time No Known Allergies Allergy Verified 12/27/16 13:04 Review of Systems ROS Statement: Except As Marked, All Systems Reviewed And Found Negative Constitutional: Positive for: Weakness, Malaise Respiratory: Positive for: Cough Physical Exam - Reviewed Nursing Documentation Reviewed: Yes Vital Signs Reviewed: Yes - Physical Exam Appears: Positive for: Non-toxic, No Acute Distress Head Exam: Positive for: ATRAUMATIC, NORMAL INSPECTION, NORMOCEPHALIC Skin: Positive for: Normal Color, Warm, DRY Eye Exam: Positive for: EOMI, Normal appearance, PERRL ENT: Positive for: Normal ENT Inspection Neck: Positive for: Normal, Painless ROM Cardiovascular/Chest: Positive for: Regular Rate, Rhythm Respiratory: Positive for: Rhonchi. Negative for: Wheezing, Respiratory Distress Gastrointestinal/Abdominal: Positive for: Normal Exam, Bowel Sounds, Soft Back: Positive for: Normal Inspection Extremity: Positive for: Normal ROM Neurologic/Psych: Positive for: Alert. Negative for: Motor/Sensory Deficits - Laboratory Results Result Diagrams: 03/25/17 11:10 03/25/17 11:10 - ECG O2 Sat by Pulse Oximetry: 94 Disposition - Clinical Impression Clinical Impression: Influenza - Patient ED Disposition Is Patient to be Admitted: No Counseled Patient/Family Regarding: Studies Performed, Diagnosis, Need For Followup, Rx Given - Disposition Referrals: Deniz Albright MD [Family Provider] - Disposition: Routine/Home Disposition Time: 13:17 Condition: FAIR Prescriptions: Oseltamivir [Tamiflu] 75 mg PO BID #9 cap Instructions: Influenza (ED) Forms: [employer] (Telugu)
[2017-03-25] MEDS ORDERED: Albuterol-Ipratrop 3 mg / 0.5 (3 ml) UD ONE (10:57)
[2017-03-25 11:21] LABS: VENOUS BLOOD GAS BASE EXCESS -0.4 mmol/L (0.0-2.0); VENOUS BLOOD GAS PCO2 48 mmHg (40-60); VENOUS BLOOD GAS PO2 42 mm/Hg (30-55); VENOUS BLOOD PH 7.34 (7.32-7.43)
[2017-03-25 11:32] LABS: ALB/GLOB RATIO 1.1 (1.0-2.1); ALT/SGPT 107 U/L (9-52); AST/SGOT 72 U/L (14-36); BASO % 0.6 % (0.0-2.0); BLOOD UREA NITROGEN 28 mg/dl (7-17); EOS % 0.3 % (0.0-4.0); GFR AFRICAN-AMERICAN > 60; GFR NON-AFRICAN AMERICAN 50; HEMOGLOBIN 10.5 g/dL (12.0-16.0); LYMPH # 1.6 K/uL (1.0-4.3); LYMPH % 18.2 % (20.0-40.0); MEAN CELL VOLUME 98.1 fl (81.0-99.0); MEAN CORPUSCULAR HEMOGLOBIN 29.8 pg (27.0-31.0); MEAN CORPUSCULAR HGB CONC 30.4 g/dL (33.0-37.0); MEAN PLATELET VOLUME 10.2 fl (7.2-11.7); MONO % 11.3 % (0.0-10.0); NEUT # 6.1 K/uL (1.8-7.0); NEUT % 69.6 % (50.0-75.0); NRBC % 10.1 % (0.0-0.0); RBC 3.53 Mil/uL (3.80-5.20); RED CELL DISTRIBUTION WIDTH 23.5 % (11.5-14.5)
[2017-03-25 12:23] LABS: WHITE BLOOD COUNT 8.7 K/uL (4.8-10.8)
[2017-03-25 13:23] VITALS: BP 129/71
--- NOTE | 2017-03-25 15:44 | RAD ---
HISTORY: cough COMPARISON: 11/14/2016 FINDINGS: LUNGS: No active pulmonary disease. PLEURA: No significant pleural effusion identified, no pneumothorax apparent. CARDIOVASCULAR: Normal. OSSEOUS STRUCTURES: No significant abnormalities. VISUALIZED UPPER ABDOMEN: Normal. OTHER FINDINGS: None. IMPRESSION: No active disease.
[2017-03-25 16:17] VITALS: PULSE 54; RESP 20; O2SAT 98
--- NOTE | 2017-03-26 10:08 | CARD ---
APPROVED REPORT EKG Measurement Heart [id number] [place] [id number] [id number] <Conclusion> Sinus bradycardia Nonspecific T wave abnormality Prolonged QT Abnormal ECG
== END 2017-03-25 15:50 | disposition home or self-care (01) ==
LOC: H.ER 10:28
DX: J11.1 Influenza due to unidentified influenza virus with other respiratory manifestations (principal); E78.00 Pure hypercholesterolemia, unspecified; F32.9 Major depressive disorder, single episode, unspecified; F41.9 Anxiety disorder, unspecified; G89.29 Other chronic pain; I11.0 Hypertensive heart disease with heart failure; Z86.73 Personal history of transient ischemic attack (TIA), and cerebral infarction without residual deficits; Z86.718 Personal history of other venous thrombosis and embolism; Z95.5 Presence of coronary angioplasty implant and graft
CPT/HCPCS: 71010; 80053; 82803; 85025; 87040; 87804; 93005; 94640; 99285; J7040

== ENCOUNTER 2017-04-02 12:50 | Emergency (ER) | payer MEDICAID ==
[2017-04-02 12:51] VITALS: BMI 39.6
[2017-04-02 13:00] VITALS: BP 135/77; PULSE 53
[2017-04-02] MEDS ORDERED: Albuterol-Ipratrop 3 mg / 0.5 (3 ml) UD INH STA (13:33)
--- NOTE | 2017-04-02 13:50 | ED PDOC ---
HPI: SOB/CHF/COPD Chief Complaint (Provider): SOB History Per: Patient, Family History/Exam Limitations: no limitations Onset/Duration Of Symptoms: Days Current Symptoms Are (Timing): Still Present Associated Symptoms: Dizziness (mild), Light-headedness (mild). denies: Fever, Chest Pain, Heart Racing, Leg/Calf Pain Recently: Seen In ED, Hospitalized Additional History Per: Patient, Family - Risk Factors PE Risk Factors: Pos: Decreased Mobilty /Activity, Previous DVT, CHF Neg: Extremity Immobilization/Fx, Recent Major Surgery, Recent Hospitalization, Active Cancer, Venous Stasis, Estrogen Usage, , Post- , Recent Major Trauma <Akbar Muhammad - Last Filed: 04/02/17 19:15> <Yao James - Last Filed: 04/03/17 11:34> Time Seen by Provider: 04/02/17 13:09 Chief Complaint (Nursing): Shortness Of Breath Additional Complaint(s): This is 61 y/o female with PMH of OLIVIA, Pulmonary HTN, Severe COPD, CVA x4, CAD s /p stents and recurrent hx of plural effusions with pneumonias comes to the ED c /o 2 days history of heavy breathing, SOB and loss of appetite. Patient reports chronic mild dizziness, lightheaded and weakness but denies any chest pain, calf pain, abdominal pain, fever, or vomiting. (Akbar Muhammad) Supervising Attending Note - Supervising Attending Note The Documented history was done by the: Physician Wire Twister, Attending Physician The documented physical exam was done by the: Physician Wire Twister, Attending Physician The documented procedures were done by the: Physician Wire Twister, Attending Physician - Attestation: I have personally seen and examined this patient.: Yes I have fully participated in the care of the patient.: Yes I have reviewed all pertinent clinical information, including history, physical exam and plan: Yes <Yao James - Last Filed: 04/03/17 11:34> Past Medical History Reviewed: Vital Signs - Medical History PMH: Anemia, Anxiety, Arthritis, Asthma, Back Problems (chronic back pain), CAD , CHF, COPD, CVA (x3), Depression, Diverticulitis, Deep Vein Thrombosis, Gastritis, HTN, Hypercholesterolemia, Osteoporosis, Peripheral Edema, Rheumatoid Arthritis, Sleep Apnea, TIA Denies: HIV, Chronic Kidney Disease, Seizures (denies) - Surgical History Surgical History: Appendectomy, [place] [place] [facility] [place] Denies: Cholecystectomy - Family History Family History: States: Unknown Family Hx - Living Arrangements Living Arrangements: With Family - Social History Current smoker - smoking cessation education provided: No Ex-Smoker (has not smoked in the last 12 months): Yes Alcohol: None Drugs: Denies <Akbar Muhammad - Last Filed: 04/02/17 19:15> Reviewed: Historical Data, Nursing Documentation <Yao James - Last Filed: 04/03/17 11:34> Vital Signs: Last Vital Signs Temp Pulse 53 L 04/02/17 12:57 Resp 18 04/02/17 16:46 BP 135/77 04/02/17 12:57 Pulse Ox 85 L 04/02/17 19:15 PP 50, Spo2 95% on 5L NC (Akbar Muhammad) - Home Medications Home Medications: Ambulatory Orders Medication Instructions Recorded Hydroxychloroquine Sulfate 200 mg PO BID #60 tablet 08/30/16 [Plaquenil] Mirtazapine [Remeron] 30 mg PO HS #30 tab 08/30/16 rOPINIRole [Requip] 1 mg PO HS #30 08/30/16 Alprazolam [Xanax] 0.5 mg PO HS 11/14/16 Clopidogrel [Plavix] 75 mg PO DAILY 11/14/16 Escitalopram [Lexapro] 5 mg PO HS 11/14/16 Escitalopram [Lexapro] 10 mg PO HS 11/14/16 Folic Acid 1 mg PO DAILY 11/14/16 Hyoscyamine [Levsin] 1 tab PO HS PRN 11/14/16 Loratadine/Pseudoephedrine 1 tab PO HS 11/14/16 [Loratadine-D 12 Hour Tablet] Meclizine [Antivert] 1 tab PO TID PRN 11/14/16 Pantoprazole [Protonix EC Tab] 40 mg PO DAILY 11/14/16 Prednisone [Kiarra] 5 mg PO DAILY 11/14/16 Ranitidine HCl [Zantac] 150 mg PO DAILY 11/14/16 Naloxegol Oxalate [Movantik] 25 mg PO DAILY #15 tablet 12/27/16 Pantoprazole Sodium [Protonix] 40 mg PO DAILY #30 tablet. 01/28/17 Atorvastatin [Lipitor] 10 mg PO HS 03/25/17 Docusate Sodium [Stool Softener] 100 mg PO DAILY PRN 03/25/17 Lidocaine [Rectasmoothe] 1 appl TP DAILY PRN 03/25/17 Meloxicam [Mobic] 7.5 mg PO HS 03/25/17 Methotrexate 2.5 mg PO QWK 03/25/17 Metoprolol Succinate [Toprol XL] 1 tab PO DAILY 03/25/17 Mineral Oil [Fleet Mineral Oil 1 ml RC Q72H PRN 03/25/17 Enema 135 Ml] Ondansetron [Zofran] 4 mg PO TID PRN 03/25/17 Oseltamivir [Tamiflu] 75 mg PO BID #9 cap 03/25/17 Polyethylene Glycol/Polyvinyl 1 drop OP BID 03/25/17 [Artificial Tears] Prednisone [Kiarra] 5 mg PO BID 03/25/17 Promethazine DM [Phenergan DM 5 ml PO TID 03/25/17 Syrup] Tetrahydrz/Dext 70/Peg 400/Pvp [Hm 1 drop OP BID 03/25/17 Eye Drops Advanced Relief] Albuterol 0.083% [Albuterol 3 ml IH TID PRN #20 neb 04/02/17 Sulfate 3 Ml] Azithromycin [Z-Carlos] 250 mg PO ASDIR #6 tab 04/02/17 Prednisone [Deltasone] 20 mg PO DAILY #4 tablet 04/02/17 - Allergies Allergies/Adverse Reactions: Allergies Allergy/AdvReac Type Severity Reaction Status Date / Time No Known Allergies Allergy Verified 12/27/16 13:04 Curb-65 Severity Score - CURB-65 Severity Score Confusion: No Bun >19mg/dl (>7mmol/L): No Respiratory Rate greater than/equal to 30: No Systolic BP <90 or Diastolic BP less than/equal 60mmHg: No Age >64: No Curb-65 Score: 0 Percentage 30-day mortality: 0.6% <Akbar Muhammad - Last Filed: 04/02/17 19:15> Wells Criteria for PE - Wells Criteria for Pulmonary Embolism Clinical Signs and Symptoms of DVT: Yes P.E is #1 Diagnosis, or Equally Likely: No Heart Rate >100: No Immobilization at least 3 days;Surgery previous 4 weeks: No Previous, objectively diagnosed PE or DVT: Yes Hemoptysis: No Malignancy w/treatment within 6 months, or palliative: No Total Score: 4.5 <Akbar Muhammad - Last Filed: 04/02/17 19:15> Review of Systems Constitutional: Positive for: Weakness. Negative for: Fever, Chills, Sweats, Malaise, Weight loss Eyes: Negative for: Vision Change ENT: Negative for: Ear Pain, Nose Pain Cardiovascular: Positive for: Light Headedness. Negative for: Chest Pain, Palpitations, Edema Respiratory: Positive for: Cough, Shortness of Breath, SOB with Exertion. Negative for: Hemoptysis, Pleuritic Pain, Sputum, Wheezing Gastrointestinal: Positive for: Nausea. Negative for: Vomiting, Abdominal Pain , Diarrhea Musculoskeletal: Negative for: Neck Pain, Shoulder Pain Skin: Negative for: Rash Neurological: Positive for: Weakness, Dizziness. Negative for: Confusion, Altered Mental Status <Akbar Muhammad - Last Filed: 04/02/17 19:15> ROS Statement: Except As Marked, All Systems Reviewed And Found Negative <Yao James - Last Filed: 04/03/17 11:34> Physical Exam - Reviewed Nursing Documentation Reviewed: Yes Vital Signs Reviewed: Yes - Physical Exam Appears: Positive for: In Acute Distress Head Exam: Positive for: NORMOCEPHALIC Skin: Positive for: Normal Color, Warm Eye Exam: Positive for: Normal appearance, EOMI, PERRL ENT: Positive for: Normal ENT Inspection Neck: Positive for: Normal Cardiovascular/Chest: Positive for: Regular Rate, Rhythm, Chest Non Tender, Bradycardia. Negative for: JVD Respiratory: Positive for: Decreased Breath Sounds, Respiratory Distress (Mild ) . Negative for: Crackles, Rales, Rhonchi Gastrointestinal/Abdominal: Positive for: Normal Exam, Bowel Sounds, Soft. Negative for: Tenderness, Rebound Back: Negative for: L CVA Tenderness, R CVA Tenderness Extremity: Negative for: Pedal Edema, Calf Tenderness, Swelling Neurologic/Psych: Positive for: Alert, Oriented. Negative for: Motor/Sensory Deficits <Akbra Muhammad - Last Filed: 04/02/17 19:15> - Laboratory Results Result Diagrams: 04/02/17 14:25 04/02/17 14:25 - ECG O2 Sat by Pulse Oximetry: 85 - Progress Re-evaluation Time: 14:09 Condition: Unchanged <Akbar Muhammad - Last Filed: 04/02/17 19:15> - Laboratory Results Result Diagrams: 04/02/17 14:25 04/02/17 14:25 <Yao James - Last Filed: 04/03/17 11:34> - Progress ED Course And Treament: 61 y/o female, for evaluation of SOB. - CBC, BMP - ABG - EKG - CXR - BNP - D-dimer - PT, PTT - Duoneb STAT - MethylPrednisolone 125 IVP - Serial re-evaluations Case Discussed with Dr. James EKG: Sinus Homer CXR: Suspect minor left basilar atelectasis ProBNP: 2790 CBC, CMP and ABG reviewed 15:45- Patient was reevaluated, feels better with O2 D-dimer 4719 CT angio chest ordered: The small bilateral effusions right larger than left. There also appears to be some minor bibasilar atelectasis. Distal right posterior lower lobe branches of the pulmonary arteries are not well delineated possibly due to the aforementioned effusion and some atelectasis however the possibility of distal pulmonary emboli cannot be completely excluded. Cardiomegaly. Minimal dilatation of the ascending thoracic aorta. Small elliptical shaped calcification within the dome of the liver possibly representing a small calcified hepatic granuloma. (Akbar Muhammad) Medical Decision Making <Akbar Muhammad - Last Filed: 04/02/17 19:15> <Yao James - Last Filed: 04/03/17 11:34> Medical Decision Making: Differentials Include: COPD Exacerbation, PE, Fluid Overload, Pleural Effusion and bradycardia possibly due to Medication (Akbar Muhammad) Disposition - Patient ED Disposition Is Patient to be Admitted: No - Disposition Disposition Time: 19:14 <Akbar Muhammad - Last Filed: 04/02/17 19:15> Doctor Will See Patient In The: Office Counseled Patient/Family Regarding: Studies Performed, Diagnosis, Need For Followup - Disposition Disposition: Routine/Home Disposition Time: 19:00 - POA Present On Arrival: None <Yao James - Last Filed: 04/03/17 11:34> - Clinical Impression Clinical Impression: COPD (chronic obstructive pulmonary disease) - Disposition Referrals: Deniz Albright MD [Family Provider] - Condition: GOOD Additional Instructions: Take your medications as instructed. Follow up with your PCP in 2-3 days. Prescriptions: Albuterol 0.083% [Albuterol Sulfate 3 Ml] 3 ml IH TID PRN #20 neb PRN Reason: Shortness Of Breath Azithromycin [Z-Carlos] 250 mg PO ASDIR #6 tab Prednisone [Deltasone] 20 mg PO DAILY #4 tablet Instructions: COPD (Chronic Obstructive Pulmonary Disease) (ED)
[2017-04-02] MEDS ORDERED: Albuterol-Ipratrop 3 mg / 0.5 (3 ml) UD ONE (13:53)
--- NOTE | 2017-04-02 14:11 | RAD ---
PROCEDURE: CHEST RADIOGRAPH, 1 VIEW HISTORY: dyspnea COMPARISON: Comparison chest dated 03/25/2017. FINDINGS: LUNGS: Suspect minor left basilar atelectasis PLEURA: No pneumothorax or pleural fluid seen. CARDIOVASCULAR: Heart remains enlarged and aorta a ectatic/uncoiled. . OSSEOUS STRUCTURES: Mild degenerative osteoarthritis both shoulder girdles. VISUALIZED UPPER ABDOMEN: Normal. OTHER FINDINGS: None. IMPRESSION: Suspect minor left basilar atelectasis
[2017-04-02 14:12] LABS: ABG ALLEN TEST YES; ARTERIAL BLOOD GAS HCO3 25.3 mmol/L (21-28); ARTERIAL BLOOD GAS HEMOGLOBIN 9.8 g/dL (11.7-17.4); ARTERIAL BLOOD GAS O2 CAPACITY 13.4 mL/dL (16-24); ARTERIAL BLOOD GAS O2 CONTENT 13.3 ML/dL (15-23); ARTERIAL BLOOD GAS O2 SAT 98.9 % (95-98); ARTERIAL BLOOD GAS PCO2 48 mm/Hg (35-45); ARTERIAL BLOOD GAS PH 7.35 (7.35-7.45); ARTERIAL BLOOD GAS PO2 103 mm/Hg (80-100)
[2017-04-02 14:38] LABS: BASO # 0.1 K/uL (0.0-0.2); BASO % 1.1 % (0.0-2.0); EOS % 0.1 % (0.0-4.0); HEMOGLOBIN 9.9 g/dL (12.0-16.0); LYMPH # 1.3 K/uL (1.0-4.3); MEAN CELL VOLUME 98.2 fl (81.0-99.0); MEAN CORPUSCULAR HEMOGLOBIN 29.4 pg (27.0-31.0); MEAN CORPUSCULAR HGB CONC 29.9 g/dL (33.0-37.0); MEAN PLATELET VOLUME 10.6 fl (7.2-11.7); MONO # 0.3 K/uL (0.0-0.8); MONO % 4.5 % (0.0-10.0); NEUT # 4.7 K/uL (1.8-7.0); NEUT % 74.3 % (50.0-75.0); NRBC % 2.5 % (0.0-0.0); RBC 3.36 Mil/uL (3.80-5.20); RED CELL DISTRIBUTION WIDTH 21.7 % (11.5-14.5); WHITE BLOOD COUNT 6.4 K/uL (4.8-10.8)
[2017-04-02 14:44] LABS: BLOOD UREA NITROGEN 29 mg/dl (7-17); CALCIUM 8.8 mg/dL (8.4-10.2); GFR AFRICAN-AMERICAN > 60; GFR NON-AFRICAN AMERICAN 56
[2017-04-02 14:56] LABS: B-TYPE NATRIURETIC PEPTIDE 2790 pg/ml (0-900)
[2017-04-02 15:57] LABS: PROTHROMBIN TIME 14.7 Seconds (9.8-13.1)
[2017-04-02 15:58] LABS: INR 1.3 (0.9-1.2); PARTIAL THROMBOPLASTIN TIME 24.4 Seconds (25.6-37.1)
[2017-04-02 16:47] VITALS: RESP 18
[2017-04-02] MEDS ORDERED: Iodixanol 320 MG/ML 100 ML BOTTLE IV ONE (17:06)
[2017-04-02] MEDS ORDERED: Sodium Chloride 0.9% 50 ML IV ONE (17:07)
--- NOTE | 2017-04-02 18:53 | CT ---
PROCEDURE: CT Chest with contrast (Pulmonary Angiogram) HISTORY: Chest pain. COMPARISON: Comparison made with prior CTA chest 11/14/2016 TECHNIQUE: Axial computed tomography images were obtained of the chest in the pulmonary arterial phase of enhancement. Coronal and sagittal reformatted images were created and reviewed. Intravenous contrast dose: Radiation dose: Total exam DLP = 475.87 mGy-cm. This CT exam was performed using one or more of the following dose reduction techniques: Automated exposure control, adjustment of the mA and/or kV according to patient size, and/or use of iterative reconstruction technique. FINDINGS: PULMONARY ARTERIES: The visualized pulmonary trunk, right and left main, lobar and segmental branches of the pulmonary arteries appear well opacified. The distal branches right lower lobe pulmonary artery are not well delineated due to the presence of an effusion some atelectasis however the possibility of the small distal branch emboli not excluded. Pulmonary trunk measures approximately 3.1 cm. AORTA: Ascending thoracic aorta appears minimally dilated measuring approximately 3.8 cm and descending thoracic aorta measures approximately 2.6 cm LUNGS: Small bilateral effusions right larger than left. Minor bibasilar atelectasis. PLEURAL SPACES: Bilateral effusions as above. No evidence of pneumothorax HEART: Heart is enlarged. No significant pericardial effusion. LYMPH NODES: No significant mediastinal or hilar adenopathy. BONES, CHEST WALL: Multilevel degenerative spondylosis of the thoracic and lumbar spine. 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 Several additional of vertebral body segments exhibit compression endplate deformities (T12, L1 and L2 vertebral bodies. . OTHER FINDINGS: Note again made of a nonspecific small elliptical shaped calcification within the dome of the liver possibly representing a calcified granuloma. IMPRESSION: The small bilateral effusions right larger than left. There also appears to be some minor bibasilar atelectasis. Distal right posterior lower lobe branches of the pulmonary arteries are not well delineated possibly due to the aforementioned effusion and some atelectasis however the possibility of distal pulmonary emboli cannot be completely excluded. Cardiomegaly. Minimal dilatation of the ascending thoracic aorta. Small elliptical shaped calcification within the dome of the liver possibly representing a small calcified hepatic granuloma.
[2017-04-02 19:14] VITALS: O2SAT 85
--- NOTE | 2017-04-03 08:30 | CARD ---
APPROVED REPORT EKG Measurement Heart [id number] FL 146P [id number] <Conclusion> Sinus bradycardia Nonspecific T wave abnormality Prolonged QT Abnormal ECG
== END 2017-04-02 19:43 | disposition home or self-care (01) ==
LOC: H.ER 12:50
DX: J44.9 Chronic obstructive pulmonary disease, unspecified (principal); E78.00 Pure hypercholesterolemia, unspecified; F32.9 Major depressive disorder, single episode, unspecified; F41.9 Anxiety disorder, unspecified; G47.33 Obstructive sleep apnea (adult) (pediatric); G89.29 Other chronic pain; I11.0 Hypertensive heart disease with heart failure; I25.10 Atherosclerotic heart disease of native coronary artery without angina pectoris; M06.9 Rheumatoid arthritis, unspecified; Z86.718 Personal history of other venous thrombosis and embolism; Z86.73 Personal history of transient ischemic attack (TIA), and cerebral infarction without residual deficits; Z95.5 Presence of coronary angioplasty implant and graft
CPT/HCPCS: 36600; 71045; 71275; 80048; 82803; 83880; 84484; 85025; 85378; 85610; 85730; 93005; 94640; 96374; 99284; J2930; Q9967

== ENCOUNTER 2017-04-07 07:41 | Inpatient (IN) | payer MEDICAID ==
[2017-04-07] MEDS ORDERED: Albuterol-Ipratrop 3 mg / 0.5 (3 ml) UD IH STA ×2 (07:45→07:51)
[2017-04-07] MEDS ORDERED: Albuterol 0.083% Inhal Sol (2.5 mg/3 mL) UD ONE (07:49)
--- NOTE | 2017-04-07 07:50 | ED PDOC ---
HPI: SOB/CHF/COPD Time Seen by Provider: 04/07/17 07:44 History Per: Family Onset/Duration Of Symptoms: Days (2) Quality: Tightness, "Pain" Current Respiratory Medications: See Home Med List Severity: Moderate Associated Symptoms: Chest Pain. denies: Fever Additional Complaint(s): Non productive cough assoc with SOB and chest tightness x 2 days but worse since last night. Nebs at home x 2 with no improvement. Denies fever. Past Medical History Vital Signs: Last Vital Signs Temp 99.1 F 04/07/17 07:53 Pulse 82 04/07/17 10:51 Resp 16 04/07/17 10:51 BP 139/78 04/07/17 10:51 Pulse Ox 96 04/07/17 10:51 - Medical History PMH: Anemia, Anxiety, Arthritis, Asthma, Back Problems (chronic back pain), CAD , CHF, COPD, CVA (x3), Depression, Diverticulitis, Deep Vein Thrombosis, Gastritis, HTN, Hypercholesterolemia, Osteoporosis, Peripheral Edema, Rheumatoid Arthritis, Sleep Apnea, TIA Denies: HIV, Chronic Kidney Disease, Seizures (denies) - Surgical History Surgical History: Appendectomy, Coronary Stent ([facility] and [facility] [place]), (x2) Denies: Cholecystectomy - Family History Family History: States: Unknown Family Hx - Home Medications Home Medications: Ambulatory Orders Medication Instructions Recorded Hydroxychloroquine Sulfate 200 mg PO BID #60 tablet 08/30/16 [Plaquenil] Mirtazapine [Remeron] 30 mg PO HS #30 tab 08/30/16 rOPINIRole [Requip] 1 mg PO HS #30 08/30/16 Alprazolam [Xanax] 0.5 mg PO HS 11/14/16 Clopidogrel [Plavix] 75 mg PO DAILY 11/14/16 Escitalopram [Lexapro] 5 mg PO HS 11/14/16 Escitalopram [Lexapro] 10 mg PO HS 11/14/16 Folic Acid 1 mg PO DAILY 11/14/16 Hyoscyamine [Levsin] 1 tab PO HS PRN 11/14/16 Loratadine/Pseudoephedrine 1 tab PO HS 11/14/16 [Loratadine-D 12 Hour Tablet] Meclizine [Antivert] 1 tab PO TID PRN 11/14/16 Ranitidine HCl [Zantac] 150 mg PO DAILY 11/14/16 Naloxegol Oxalate [Movantik] 25 mg PO DAILY #15 tablet 12/27/16 Pantoprazole Sodium [Protonix] 40 mg PO DAILY #30 tablet. 01/28/17 Atorvastatin [Lipitor] 10 mg PO HS 03/25/17 Docusate Sodium [Stool Softener] 100 mg PO DAILY PRN 03/25/17 Lidocaine [Rectasmoothe] 1 appl TP DAILY PRN 03/25/17 Meloxicam [Mobic] 7.5 mg PO HS 03/25/17 Methotrexate 2.5 mg PO QWK 03/25/17 Metoprolol Succinate [Toprol XL] 1 tab PO DAILY 03/25/17 Ondansetron [Zofran] 4 mg PO TID PRN 03/25/17 Polyethylene Glycol/Polyvinyl 1 drop OP BID 03/25/17 [Artificial Tears] Promethazine DM [Phenergan DM 5 ml PO TID 03/25/17 Syrup] Tetrahydrz/Dext 70/Peg 400/Pvp [Hm 1 drop OP BID 03/25/17 Eye Drops Advanced Relief] Albuterol 0.083% [Albuterol 3 ml IH TID PRN #20 neb 04/02/17 Sulfate 3 Ml] Prednisone [Deltasone] 20 mg PO DAILY #4 tablet 04/02/17 - Allergies Allergies/Adverse Reactions: Allergies Allergy/AdvReac Type Severity Reaction Status Date / Time No Known Allergies Allergy Verified 04/07/17 07:53 Review of Systems ROS Statement: Except As Marked, All Systems Reviewed And Found Negative Cardiovascular: Positive for: Chest Pain Respiratory: Positive for: Cough, Shortness of Breath Physical Exam - Reviewed Nursing Documentation Reviewed: Yes Vital Signs Reviewed: Yes - Physical Exam Appears: Positive for: Well, Non-toxic, No Acute Distress Head Exam: Positive for: ATRAUMATIC, NORMAL INSPECTION, NORMOCEPHALIC Skin: Positive for: Normal Color, Warm, DRY Eye Exam: Positive for: EOMI, Normal appearance, PERRL ENT: Positive for: Normal ENT Inspection Neck: Positive for: Normal, Painless ROM Cardiovascular/Chest: Positive for: Regular Rate, Rhythm Respiratory: Positive for: Decreased Breath Sounds, Rales, Rhonchi, Respiratory Distress (Mild/mod) Gastrointestinal/Abdominal: Positive for: Normal Exam, Bowel Sounds, Soft Back: Positive for: Normal Inspection Extremity: Positive for: Normal ROM Neurologic/Psych: Positive for: Alert, Oriented - Laboratory Results Result Diagrams: 04/07/17 08:20 04/07/17 08:20 Disposition - Clinical Impression Clinical Impression: NSTEMI (non-ST elevated myocardial infarction), COPD (chronic obstructive pulmonary disease), CHF (congestive heart failure) - Patient ED Disposition Is Patient to be Admitted: Yes - Disposition Disposition Time: 11:11 Condition: FAIR - Pt Status Changed To: Hospital Disposition Of: Inpatient - Admit Certification Admit to Inpatient:: After my assessment, the patient will require hospitalization for at least two midnights. This is because of the severity of symptoms shown, intensity of services needed, and/or the medical risk in this patient being treated as an outpatient. - POA Present On Arrival: None
[2017-04-07] MEDS ORDERED: Albuterol-Ipratrop 3 mg / 0.5 (3 ml) UD ONE (07:57)
[2017-04-07 08:13] LABS: VENOUS BLOOD GAS BASE EXCESS 3.4 mmol/L (0.0-2.0); VENOUS BLOOD GAS PCO2 56 mmHg (40-60); VENOUS BLOOD GAS PO2 36 mm/Hg (30-55); VENOUS BLOOD PH 7.34 (7.32-7.43)
[2017-04-07 08:29] LABS: BASO # 0.1 K/uL (0.0-0.2); BASO % 0.6 % (0.0-2.0); EOS % 0.1 % (0.0-4.0); HEMOGLOBIN 10.4 g/dL (12.0-16.0); LYMPH # 1.5 K/uL (1.0-4.3); LYMPH % 11.7 % (20.0-40.0); MEAN CELL VOLUME 96.1 fl (81.0-99.0); MEAN CORPUSCULAR HEMOGLOBIN 29.4 pg (27.0-31.0); MEAN CORPUSCULAR HGB CONC 30.6 g/dL (33.0-37.0); MONO # 0.8 K/uL (0.0-0.8); MONO % 6.4 % (0.0-10.0); NEUT # 10.6 K/uL (1.8-7.0); NEUT % 81.2 % (50.0-75.0); NRBC % 5.2 % (0.0-0.0); RBC 3.54 Mil/uL (3.80-5.20); WHITE BLOOD COUNT 13.1 K/uL (4.8-10.8)
[2017-04-07 09:04] LABS: ALT/SGPT 89 U/L (9-52); AST/SGOT 48 U/L (14-36); BLOOD UREA NITROGEN 16 mg/dl (7-17); GFR AFRICAN-AMERICAN > 60; GFR NON-AFRICAN AMERICAN > 60
[2017-04-07] MEDS ORDERED: Nitroglycerin 2% Ointment Foilpak UD TOP STA (09:09)
[2017-04-07] MEDS ORDERED: Sodium Chloride 0.9% 50 ML IV ONE (09:23)
[2017-04-07] MEDS ORDERED: Iodixanol 320 MG/ML 100 ML BOTTLE IV ONE (09:23)
[2017-04-07] MEDS ORDERED: Nitroglycerin 2% Ointment Foilpak UD TOP ONE (09:44)
--- NOTE | 2017-04-07 09:49 | RAD ---
HISTORY: cough COMPARISON: Chest radiograph dated 04/02/2017 FINDINGS: LUNGS: Pulmonary vascular congestion. PLEURA: No significant pleural effusion identified, no pneumothorax apparent. CARDIOVASCULAR: Cardiomediastinal silhouette unchanged. OSSEOUS STRUCTURES: Unchanged. VISUALIZED UPPER ABDOMEN: Normal. OTHER FINDINGS: None. IMPRESSION: Pulmonary vascular congestion.
[2017-04-07] MEDS ORDERED: Hyoscyamine 0.125 mg SL Tab PO PRN (10:16)
--- NOTE | 2017-04-07 10:26 | CP.PCM.HP ---
History of Present Illness - History of Present Illness History of Present Illness: CC: chest pain, can't breathe 61 year old female with past medical history of respiratory insufficiency 2/2 COPD, OLIVIA, severe PAH with connective tissue dz, SLE, RA, s/p splenectomy with chronic thrombocytopenia, hx CVA, CAD with PCI, hx DVT with IVC filter presents to the ER today 2/2 3 week hx of dyspnea from flu, however this morning with chest pain and dyspnea since 3 am which woke her from sleep, chest pain is mild to moderate, does not radiate, left sided, lasts for about a minute but waxes and wanes frequently. In ER, afebrile 99.1 88 138/86, currently on BIPAP saturating 96%. Tn 0.125, Dimer 3533, CTA pending, WBC 13.1, LA 2.8 likely 2/2 respiratory insufficiency/COPD exacerbation, CXR +pulmonary vascular congestion. Most recent ECHO 07/2016 showed severe PAH and severe TR. In ER, pt received bronchodilators x2, lasix 40 mg IV x1, solumedrol 125mg x1, ASA 325 mg x1, and on BIPAP, and patient states she feels significant improvement compared to this morning. PE study pending, if neg, will obtain duplex LE, if positive: with careful anticoagulation 2/2 history of recurrent GI bleeds. Admit to telemetry for Acute Decompensated Cor Pulmonale 2/2 PAH, COPD, concern for possible PE. ROS: per HPI, all other systems reviewed and negative by me PMD: Dr. Albright Prototype Sewer: Dr. 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, HTN, Sleep apnea using CPAP, asthma/COPD on home oxygen (not using), dyslipidemia rheumatoid arthritis, SLE, osteoporosis, thrombocytopenia Surgeries: Carpal tunnel surgery, C- sections x 2, bunyon removal,splecectomy Medications: see med rec Family history: Mother had HTN, DM and CABG, Father had CVA HTN and DM Social history: Lives in [place] with grandchildren, does not smoke, does not drink, does not use any alcohol, used to work in [employer] Allergies NKDA Vitals Reviewed GEN: WDWN, alert, cooperative HEENT: NCAT, PERRL, EOMI +mild JVD HEART: RRR, +S1S2, NO MRG LUNG: decreased BS, +rales/rhonchi ABD: soft, NT, ND, no HSM, no MASSES EXT: normal pulses, mild edema. NEURO: AAOX3, strength equal, bilateral upper and lower extremities SKIN: warm, dry PSYCH: anxious, normal affect 04/07/17 08:20 04/07/17 08:20 DIMER 3533 TROPONIN 0.1250 LA 2.8 CXR: pulmonary vascular congestion CTA: pending [id number] year old female with past medical history of respiratory insufficiency 2/2 COPD, OLIVIA, severe PAH with connective tissue dz, SLE, RA, s/p splenectomy with chronic thrombocytopenia, hx CVA, CAD with PCI, hx DVT with IVC filter presents to the ER today 2/2 3 week hx of dyspnea from flu, however morning of admission with chest pain and dyspnea since 3 am which woke her from sleep, chest pain was mild to moderate, does not radiate, left sided, lasted for about a minute but waxes and wanes frequently. In ER, afebrile 99.1 88 138/86, on BIPAP saturating 96%. Tn 0.125, Dimer 3533, CTA pending, WBC 13.1, LA 2.8 likely 2/2 respiratory insufficiency/COPD exacerbation, CXR +pulmonary vascular congestion. Most recent ECHO 07/2016 showed severe PAH and severe TR. In ER, pt received bronchodilators x2, lasix 40 mg IV x1, solumedrol 125mg x1, ASA 325 mg x1, and on BIPAP, and patient states she felt significant improvement compared to the morning. PE study pending, if neg, will obtain duplex LE, if positive: careful anticoagulation 2/2 history of recurrent GI bleeds. Admit to telemetry for Acute Decompensated Cor Pulmonale 2/2 PAH, COPD, concern for possible PE. Acute Decompensated Cor Pulmonale 2/2 PAH, COPD diuresis, Lasix 40 mg IVP q12 hours, reevaluate tomorrow continue Duonebs q4 hours, with PRN continue Solumedrol 60 q8 hours, reevaluate tomorrow Hypertension continue Toprol 25 mg daily Concern for possible PE Hx DVT with IVC filter CTA negative denies calf pain cautious AC given hx recurrent GI Bleeds Hx Splenectomy with Thrombocytopenia Hx Recurrent GI bleeds Plt 55 manual pending Elevated Troponin CAD s/p PCI Trop 0.1250 trend cardiac enzymes no acute changes on EKG continue ASA, Plavix, Statin, Toprol 25 mg daily Rheumatoid Arthritis, SLE continue folic acid, Levsin, Methotrexate Depression and Anxiety continue Xanax 0.5 mg HS continue Lexapro, Remeron, Requip Constipation continue Naloxegol and Docusate Present on Admission - Present on Admission Any Indicators Present on Admission: No Past Patient History - Infectious Disease Hx of Infectious Diseases: None - Tetanus Immunizations Tetanus Immunization: Unknown - Past Medical History & Family History Past Medical History?: Yes - Past Social History Smoking Status: Never Smoked - CARDIAC Hx Cardiac Disorders: Yes Hx Congestive Heart Failure: Yes Hx Hypercholesterolemia: Yes Hx Hypertension: Yes Hx Peripheral Edema: Yes - PULMONARY Hx Respiratory Disorders: Yes Hx Asthma: Yes Hx Chronic Obstructive Pulmonary Disease (COPD): Yes Hx Sleep Apnea: Yes - NEUROLOGICAL Hx Neurological Disorder: Yes Hx Seizures: No (denies) Hx Transient Ischemic Attacks (TIA): Yes - HEENT Hx HEENT Problems: No - RENAL Hx Chronic Kidney Disease: No - ENDOCRINE/METABOLIC Hx Endocrine Disorders: No - HEMATOLOGICAL/ONCOLOGICAL Hx Blood Disorders: Yes Hx Anemia: Yes Hx Human Immunodeficiency Virus (HIV): No - INTEGUMENTARY Hx Dermatological Problems: No - MUSCULOSKELETAL/RHEUMATOLOGICAL Hx Musculoskeletal Disorders: Yes Hx Arthritis: Yes Hx Back Pain: Yes Hx Osteoporosis: Yes Hx Rheumatoid Arthritis: Yes - GASTROINTESTINAL Hx Gastrointestinal Disorders: Yes Hx Diverticulitis: Yes Hx Gastritis: Yes - GENITOURINARY/GYNECOLOGICAL Hx Genitourinary Disorders: Yes - PSYCHIATRIC Hx Psychophysiologic Disorder: Yes Hx Anxiety: Yes Hx Depression: Yes Hx Substance Use: No - SURGICAL HISTORY Hx Surgeries: Yes Hx Appendectomy: Yes Hx Cholecystectomy: No Hx Coronary Stent: Yes ([facility]) - ANESTHESIA Hx Anesthesia: Yes Hx Anesthesia Reactions: No Hx Malignant Hyperthermia: No Meds Allergies/Adverse Reactions: Allergies Allergy/AdvReac Type Severity Reaction Status Date / Time No Known Allergies Allergy Verified 04/07/17 07:53 Results - Vital Signs Recent Vital Signs: Last Vital Signs Temp 99.1 F 04/07/17 07:53 Pulse 88 04/07/17 09:10 Resp 18 04/07/17 08:30 BP 138/86 04/07/17 09:10 Pulse Ox 97 04/07/17 07:53 - Labs Result Diagrams: 04/07/17 08:20 04/07/17 08:20 Labs: Laboratory Results - last 24 hr 04/07/17 04/07/17 04/07/17 07:45 08:20 08:20 WBC 13.1 H D RBC 3.54 L Hgb 10.4 L Hct 34.0 MCV 96.1 D MCH 29.4 MCHC 30.6 L RDW 23.0 H Plt Count 55 L MPV 11.0 Neut % (Auto) 81.2 H Lymph % (Auto) 11.7 L [place] % (Auto) 6.4 Eos % (Auto) 0.1 Baso % (Auto) 0.6 Neut # 10.6 H Lymph # 1.5 [place] # 0.8 Eos # 0.0 Baso # 0.1 D-Dimer, Quantitative pO2 36 VBG pH 7.34 VBG pCO2 56 VBG HCO3 26.8 VBG Total CO2 31.9 H VBG O2 Sat (Calc) 62.6 VBG Base Excess 3.4 H VBG Potassium 3.6 Sodium 143.0 148 Chloride 107.0 106 Glucose 109 H Lactate 2.8 H FiO2 21.0 Potassium 3.6 Carbon Dioxide 30 Anion Gap 16 BUN 16 Creatinine 0.8 Est GFR ( Amer) > 60 Est GFR (Non-Af Amer) > 60 Random Glucose 106 H Calcium 9.0 Total Bilirubin 2.1 H AST 48 H D ALT 89 H Alkaline Phosphatase 258 H D Troponin I 0.1250 H* Total Protein 7.8 Albumin 4.0 Globulin 3.8 Albumin/Globulin Ratio 1.0 Venous Blood Potassium 3.6 04/07/17 08:20 WBC RBC Hgb Hct MCV MCH MCHC RDW Plt Count MPV Neut % (Auto) Lymph % (Auto) [place] % (Auto) Eos % (Auto) Baso % (Auto) Neut # Lymph # [place] # Eos # Baso # D-Dimer, Quantitative 3533 H pO2 VBG pH VBG pCO2 VBG HCO3 VBG Total CO2 VBG O2 Sat (Calc) VBG Base Excess VBG Potassium Sodium Chloride Glucose Lactate FiO2 Potassium Carbon Dioxide Anion Gap BUN Creatinine Est GFR ( Amer) Est GFR (Non-Af Amer) Random Glucose Calcium Total Bilirubin AST ALT Alkaline Phosphatase Troponin I Total Protein Albumin Globulin Albumin/Globulin Ratio Venous Blood Potassium
[2017-04-07] MEDS ORDERED: Albuterol-Ipratrop 3 mg / 0.5 (3 ml) UD INH PRN (10:51)
--- NOTE | 2017-04-07 11:34 | CT ---
PROCEDURE: CT Chest with contrast (Pulmonary Angiogram) HISTORY: SOB elevated d dimer COMPARISON: CT angiography of the pulmonary arteries dated 04/02/2017. TECHNIQUE: Axial computed tomography images were obtained of the chest in the pulmonary arterial phase of enhancement. Coronal and sagittal reformatted images were created and reviewed. Intravenous contrast dose: 99 mL Visipaque 320 Radiation dose: Total exam DLP = 400 mGy-cm. This CT exam was performed using one or more of the following dose reduction techniques: Automated exposure control, adjustment of the mA and/or kV according to patient size, and/or use of iterative reconstruction technique. FINDINGS: PULMONARY ARTERIES: Unremarkable. No pulmonary embolism. AORTA: No acute findings. No thoracic aortic aneurysm. LUNGS: Worsening pulmonary vascular congestion/ edema with increase in size of now moderate bilateral pleural effusions. HEART: Stably enlarged. No significant pericardial effusion. LYMPH NODES: No lymphadenopathy. BONES, CHEST WALL: Unremarkable. Multilevel spinal degenerative changes with stable chronic wedge deformities of the lower thoracic/ upper lumbar spine. OTHER FINDINGS: Unremarkable. IMPRESSION: No pulmonary embolus. Worsening pulmonary vascular congestion/edema with increase in size of now moderate bilateral pleural effusions.
--- NOTE | 2017-04-07 13:00 | CARD ---
APPROVED REPORT EKG Measurement Heart [id number] MN P34 [id number] <Conclusion> Sinus rhythm Incomplete RBBB Nonspecific T wave abnormality Abnormal ECG Baseline artefact
[2017-04-07] MEDS: Albuterol-Ipratrop 3 mg / 0.5 (3 ml) UD INH SCH ×3 (14:24→19:17)
[2017-04-07 15:47] VITALS: RESP 18
[2017-04-07] MEDS ORDERED: [UNRECOGNIZED DRUG - OTHER] OP SCH (17:00)
[2017-04-08] MEDS: Albuterol-Ipratrop 3 mg / 0.5 (3 ml) UD INH SCH ×5 (00:03→15:14)
[2017-04-08 06:40] LABS: BASO % 0.4 % (0.0-2.0); HEMOGLOBIN 9.2 g/dL (12.0-16.0); LYMPH # 0.1 K/uL (1.0-4.3); LYMPH % 1.4 % (20.0-40.0); MEAN CELL VOLUME 95.6 fl (81.0-99.0); MEAN CORPUSCULAR HEMOGLOBIN 29.5 pg (27.0-31.0); MEAN CORPUSCULAR HGB CONC 30.8 g/dL (33.0-37.0); MEAN PLATELET VOLUME 11.7 fl (7.2-11.7); MONO # 0.5 K/uL (0.0-0.8); MONO % 5.3 % (0.0-10.0); NEUT # 9.2 K/uL (1.8-7.0); NEUT % 92.9 % (50.0-75.0); NRBC % 3.1 % (0.0-0.0); RBC 3.13 Mil/uL (3.80-5.20); RED CELL DISTRIBUTION WIDTH 22.1 % (11.5-14.5)
[2017-04-08 06:45] LABS: ALBUMIN 3.2 g/dL (3.5-5.0); ALT/SGPT 77 U/L (9-52); AST/SGOT 32 U/L (14-36); BLOOD UREA NITROGEN 19 mg/dl (7-17); CALCIUM 7.9 mg/dL (8.4-10.2); GFR AFRICAN-AMERICAN > 60; GFR NON-AFRICAN AMERICAN > 60; MAGNESIUM 1.6 MG/DL (1.6-2.3)
[2017-04-08] MEDS ORDERED: Pantoprazole 40 mg EC Tab PO SCH (09:00)
[2017-04-08] MEDS ORDERED: Metoprolol Succinate 25 mg XL Tab PO SCH (09:00)
[2017-04-08] MEDS ORDERED: NALOXEGOL OXALATE 25 MG PO SCH (09:00)
[2017-04-08 12:08] LABS: PLATELET COUNT 55 K/uL (130-400)
[2017-04-08 12:12] LABS: BANDS 1 % (0-2); BASOPHIL 1 % (0-2); EOSINOPHIL 3 % (0-7); LYMPHOCYTE 16 % (20-50); MONOCYTE 12 % (0-10); NEUTROPHIL 67 % (42-75); TOTAL CELLS COUNTED 100
[2017-04-08 12:13] LABS: ANISOCYTOSIS SLIGHT; GIANT PLATELETS PRESENT; LARGE PLATELETS PRESENT; OVALOCYTES SLIGHT; POIKILOCYTOSIS SLIGHT
[2017-04-08 12:56] LABS: PLATELET ESTIMATE DECREASED (NORMAL)
--- NOTE | 2017-04-08 13:31 | CP.PCM.DIS ---
Provider - Provider Date of Admission: 04/07/17 11:12 Attending physician: Raquel Salas DO Time Spent in preparation of Discharge (in minutes): 30 Diagnosis - Discharge Diagnosis (1) Acute decompensated heart failure Status: Acute (2) Cor pulmonale, acute Status: Acute Hospital Course - Lab Results Lab Results: Most Recent Lab Values WBC 10.0 K/uL (4.8-10.8) 04/08/17 05:10 RBC 3.13 Mil/uL (3.80-5.20) L 04/08/17 05:10 Hgb 9.2 g/dL (12.0-16.0) L 04/08/17 05:10 Hct 30.0 % (34.0-47.0) L 04/08/17 05:10 MCV 95.6 fl (81.0-99.0) 04/08/17 05:10 MCH 29.5 pg (27.0-31.0) 04/08/17 05:10 MCHC 30.8 g/dL (33.0-37.0) L 04/08/17 05:10 RDW 22.1 % (11.5-14.5) H 04/08/17 05:10 Plt Count 55 K/uL (130-400) L 04/08/17 05:10 MPV 11.7 fl (7.2-11.7) 04/08/17 05:10 Neut % (Auto) 92.9 % (50.0-75.0) H 04/08/17 05:10 Lymph % (Auto) 1.4 % (20.0-40.0) L 04/08/17 05:10 [place] % (Auto) 5.3 % (0.0-10.0) 04/08/17 05:10 Eos % (Auto) 0.0 % (0.0-4.0) 04/08/17 05:10 Baso % (Auto) 0.4 % (0.0-2.0) 04/08/17 05:10 Neut # 9.2 K/uL (1.8-7.0) H 04/08/17 05:10 Lymph # 0.1 K/uL (1.0-4.3) L 04/08/17 05:10 [place] # 0.5 K/uL (0.0-0.8) 04/08/17 05:10 Eos # 0.0 K/uL (0.0-0.7) 04/08/17 05:10 Baso # 0.0 K/uL (0.0-0.2) 04/08/17 05:10 Neutrophils % (Manual) 67 % (42-75) 04/08/17 05:10 Band Neutrophils % 1 % (0-2) 04/08/17 05:10 Lymphocytes % (Manual) 16 % (20-50) L 04/08/17 05:10 Monocytes % (Manual) 12 % (0-10) H 04/08/17 05:10 Eosinophils % (Manual) 3 % (0-7) 04/08/17 05:10 Basophils % (Manual) 1 % (0-2) 04/08/17 05:10 Platelet Estimate Decreased (NORMAL) L 04/08/17 05:10 Large Platelets Present 04/08/17 05:10 Giant Platelets Present 04/08/17 05:10 Poikilocytosis (manual Slight 04/08/17 05:10 Anisocytosis (manual) Slight 04/08/17 05:10 Ovalocytes Slight 04/08/17 05:10 D-Dimer, Quantitative 3533 ng/mlDDU (0-230) H 04/07/17 08:20 pO2 36 mm/Hg (30-55) 04/07/17 07:45 VBG pH 7.34 (7.32-7.43) 04/07/17 07:45 VBG pCO2 56 mmHg (40-60) 04/07/17 07:45 VBG HCO3 26.8 mmol/L 04/07/17 07:45 VBG Total CO2 31.9 mmol/L (22-28) H 04/07/17 07:45 VBG O2 Sat (Calc) 62.6 % (40-65) 04/07/17 07:45 VBG Base Excess 3.4 mmol/L (0.0-2.0) H 04/07/17 07:45 VBG Potassium 3.6 mmol/L (3.6-5.2) 04/07/17 07:45 Sodium 143.0 mmol/L (132-148) 04/07/17 07:45 Chloride 107.0 mmol/L (98-107) 04/07/17 07:45 Glucose 109 mg/dL (65-105) H 04/07/17 07:45 Lactate 2.8 mmol/L (0.7-2.1) H 04/07/17 07:45 FiO2 21.0 % 04/07/17 07:45 Sodium 146 mmol/l (132-148) 04/08/17 05:10 Potassium 3.9 MMOL/L (3.6-5.0) 04/08/17 05:10 Chloride 102 mmol/L (98-107) 04/08/17 05:10 Carbon Dioxide 37 mmol/L (22-30) H 04/08/17 05:10 Anion Gap 11 (10-20) 04/08/17 05:10 BUN 19 mg/dl (7-17) H 04/08/17 05:10 Creatinine 0.8 mg/dl (0.7-1.2) 04/08/17 05:10 Est GFR ( Amer) > 60 04/08/17 05:10 Est GFR (Non-Af Amer) > 60 04/08/17 05:10 Random Glucose 139 mg/dL (65-105) H 04/08/17 05:10 Calcium 7.9 mg/dL (8.4-10.2) L 04/08/17 05:10 Phosphorus 4.3 mg/dl (2.5-4.5) 04/08/17 05:10 Magnesium 1.6 MG/DL (1.6-2.3) 04/08/17 05:10 Total Bilirubin 1.2 mg/dl (0.2-1.3) 04/08/17 05:10 AST 32 U/L (14-36) 04/08/17 05:10 ALT 77 U/L (9-52) H 04/08/17 05:10 Alkaline Phosphatase 173 U/L (38-126) H D 04/08/17 05:10 Troponin I 0.1010 ng/mL (0.00-0.120) 04/07/17 21:51 Total Protein 6.6 G/DL (6.3-8.2) 04/08/17 05:10 Albumin 3.2 g/dL (3.5-5.0) L 04/08/17 05:10 Globulin 3.3 gm/dL (2.2-3.9) 04/08/17 05:10 Albumin/Globulin Ratio 1.0 (1.0-2.1) 04/08/17 05:10 Venous Blood Potassium 3.6 mmol/L (3.6-5.2) 04/07/17 07:45 - Hospital Course Hospital Course: 61 year old female with past medical history of respiratory insufficiency 2/2 COPD, OLIVIA, severe PAH with connective tissue dz, SLE, RA, s/p splenectomy with chronic thrombocytopenia, hx CVA, CAD with PCI, hx DVT with IVC filter presents to the ER today 2/2 3 week hx of dyspnea from flu, however morning of admission with chest pain and dyspnea since 3 am which woke her from sleep, chest pain was mild to moderate, does not radiate, left sided, lasted for about a minute but waxes and wanes frequently. In ER, afebrile 99.1 88 138/86, on BIPAP saturating 96%. Tn 0.125, Dimer 3533, CTA pending, WBC 13.1, LA 2.8 likely 2/2 respiratory insufficiency/COPD exacerbation, CXR +pulmonary vascular congestion. Most recent ECHO 07/2016 showed severe PAH and severe TR. In ER, pt received bronchodilators x2, lasix 40 mg IV x1, solumedrol 125mg x1, ASA 325 mg x1, and on BIPAP, and patient states she felt significant improvement compared to the morning. PE study pending, if neg, will obtain duplex LE, if positive: careful anticoagulation 2/2 history of recurrent GI bleeds. Admit to telemetry for Acute Decompensated Cor Pulmonale 2/2 PAH, COPD, concern for possible PE. Overnight, patient unexpectedly improved with aggressive diuresis, and is being discharged prior to two midnights, despite anticipation of longer stay given respiratory distress and insufficiency at that time, requiring bipap and intravenous diuretics. Patient breathing is much improved and is at baseline this morning, saturating at baseline with baseline oxygen requirement. Patient is stable for discharge home with follow up with primary care physician. Acute Decompensated Cor Pulmonale 2/2 PAH, COPD diuresis, Lasix 40 mg IVP q12 hours, drastically improved. continue Duonebs q4 hours, with PRN continue Solumedrol 60 q8 hours, no more wheezing, can be discontinued, and continue home steroid dose. Hypertension continue Toprol 25 mg daily Concern for possible PE Hx DVT with IVC filter CTA negative denies calf pain cautious AC given hx recurrent GI Bleeds Hx Splenectomy with Thrombocytopenia Hx Recurrent GI bleeds Plt 55 manual pending Elevated Troponin CAD s/p PCI Trop 0.1250, these troponins likely secondary to cardiac strain due to volume overload. No evidence of ischemia or infarction on EKG. No significant changes. Cardiac enzymes trended down, NO chest pain. trend cardiac enzymes no acute changes on EKG continue ASA, Plavix, Statin, Toprol 25 mg daily Rheumatoid Arthritis, SLE continue folic acid, Levsin, Methotrexate Depression and Anxiety continue Xanax 0.5 mg HS continue Lexapro, Remeron, Requip Constipation continue Naloxegol and Docusate Discharge Exam - Head Exam Head Exam: ATRAUMATIC, NORMAL INSPECTION, NORMOCEPHALIC - Eye Exam Eye Exam: EOMI, Normal appearance, PERRL Pupil Exam: NORMAL ACCOMODATION - ENT Exam ENT Exam: Mucous Membranes Moist, Normal Oropharynx - Neck Exam Neck exam: Full Rom, Normal Inspection - Respiratory Exam Respiratory Exam: Clear to PA & Lateral, NORMAL BREATHING PATTERN - Cardiovascular Exam Cardiovascular Exam: RRR, +S1, +S2 - GI/Abdominal Exam GI & Abdominal Exam: Normal Bowel Sounds, Soft. absent: Mass, Organomegaly, Tenderness - Extremities Exam Extremities exam: normal capillary refill, pedal pulses present - Back Exam Back exam: absent: CVA tenderness (L), CVA tenderness (R) - Neurological Exam Neurological exam: Alert, Oriented x3 - Psychiatric Exam Psychiatric exam: Normal Affect, Normal Mood - Skin Skin Exam: Dry, Normal Color, Warm Discharge Plan - Discharge Medications Prescriptions: Albuterol/Ipratropium [Duoneb 3 mg/0.5 mg (3 ml) UD] 3 ml INH RQ4 #30 neb Clopidogrel [Plavix] 75 mg PO DAILY #30 tab Docusate Sodium [Stool Softener] 100 mg PO DAILY PRN #30 tablet PRN Reason: Constipation Escitalopram [Lexapro] 5 mg PO HS #30 tab Folic Acid 1 mg PO DAILY #30 tab Furosemide [Lasix] 20 mg PO QOTHERDAY #30 tablet Hydroxychloroquine Sulfate [Plaquenil] 200 mg PO BID #60 tablet Hyoscyamine [Levsin] 1 tab PO HS PRN #30 tab PRN Reason: Indigestion Methotrexate 2.5 mg PO QWK #4 tab Metoprolol Succinate [Toprol XL] 1 tab PO DAILY #30 tab Mirtazapine [Remeron] 30 mg PO HS #30 tab Naloxegol Oxalate [Movantik] 25 mg PO DAILY #15 tablet Pantoprazole Sodium [Protonix] 40 mg PO DAILY #30 tablet. Prednisone [Deltasone] 20 mg PO DAILY #4 tablet Ranitidine HCl [Zantac] 150 mg PO DAILY #30 tablet rOPINIRole [Requip] 1 mg PO HS #30 tab Tetrahydrz/Dext 70/Peg 400/Pvp [Hm Eye Drops Advanced Relief] 1 drop OP BID #30 drops - Follow Up Plan Condition: FAIR Disposition: HOME/ ROUTINE Additional Instructions: FOLLOW UP WITH PCP IN ONE WEEK
[2017-04-08 15:58] VITALS: BP 119/70; PULSE 78; TEMP 97.9; O2SAT 97
[2017-04-08 16:18] VITALS: BMI 39.6
== END 2017-04-08 18:30 | disposition home health service (06) | DRG 144 ==
LOC: H.ER 07:41 → H.ERHOLD 11:12 → H.TEL 13:06
PROVIDERS: ADMIT Student in an Organized Health Care Education/Training Program; ATTEND Student in an Organized Health Care Education/Training Program
DX: I27.21 Secondary pulmonary arterial hypertension (principal); I11.0 Hypertensive heart disease with heart failure; D69.6 Thrombocytopenia, unspecified; I50.9 Heart failure, unspecified; J44.1 Chronic obstructive pulmonary disease with (acute) exacerbation; M32.9 Systemic lupus erythematosus, unspecified; I27.81 Cor pulmonale (chronic); I27.20 Pulmonary hypertension, unspecified; I69.354 Hemiplegia and hemiparesis following cerebral infarction affecting left non-dominant side; E78.00 Pure hypercholesterolemia, unspecified; F32.9 Major depressive disorder, single episode, unspecified; F41.9 Anxiety disorder, unspecified; G47.33 Obstructive sleep apnea (adult) (pediatric); I25.10 Atherosclerotic heart disease of native coronary artery without angina pectoris; K59.00 Constipation, unspecified; M06.9 Rheumatoid arthritis, unspecified; M81.0 Age-related osteoporosis without current pathological fracture; Z79.02 Long term (current) use of antithrombotics/antiplatelets; Z79.82 Long term (current) use of aspirin; Z79.899 Other long term (current) drug therapy; Z86.718 Personal history of other venous thrombosis and embolism; Z90.49 Acquired absence of other specified parts of digestive tract; Z90.81 Acquired absence of spleen; Z95.5 Presence of coronary angioplasty implant and graft; Z99.81 Dependence on supplemental oxygen; D64.9 Anemia, unspecified; G89.29 Other chronic pain; K29.70 Gastritis, unspecified, without bleeding; M19.90 Unspecified osteoarthritis, unspecified site; R06.03 Acute respiratory distress; I69.328 Other speech and language deficits following cerebral infarction

== ENCOUNTER 2017-05-05 10:19 | Emergency (ER) | payer MEDICAID ==
[2017-05-05] MEDS ORDERED: Sodium Chloride 0.9% 1,000 ML IV STA (10:38)
[2017-05-05 10:41] VITALS: TEMP 97.4
--- NOTE | 2017-05-05 10:42 | ED PDOC ---
HPI: Abdomen Time Seen by Provider: 05/05/17 10:28 History Per: Patient Onset/Duration Of Symptoms: Days (2) Current Symptoms Are (Timing): Still Present Severity: Mild Pain Scale Rating Of: 2 Location Of Pain/Discomfort: Epigastric Associated Symptoms: Nausea, Diarrhea. denies: Vomiting, Urinary Symptoms Additional Complaint(s): Epigastric abd pain assoc with nausea, no vomiting. Has also had non-bloody diarrhea. No fever. Past Medical History Vital Signs: Last Vital Signs Temp 97.4 F L 05/05/17 10:38 Pulse 77 05/05/17 10:38 Resp 22 05/05/17 10:38 BP 151/76 H 05/05/17 10:38 Pulse Ox 90 L 05/05/17 10:42 - Medical History PMH: Anemia, Anxiety, Arthritis, Asthma, Back Problems (chronic back pain), CAD , CHF, COPD, CVA (x3), Depression, Diverticulitis, Deep Vein Thrombosis, Gastritis, HTN, Hypercholesterolemia, Osteoporosis, Peripheral Edema, Rheumatoid Arthritis, Sleep Apnea, TIA Denies: HIV, Chronic Kidney Disease, Seizures (denies) - Surgical History Surgical History: Appendectomy, Coronary Stent ([place] [facility]), (x2) Denies: Cholecystectomy - Family History Family History: States: Unknown Family Hx - Home Medications Home Medications: Ambulatory Orders Medication Instructions Recorded Alprazolam [Xanax] 0.5 mg PO HS 11/14/16 Escitalopram [Lexapro] 10 mg PO HS 11/14/16 Loratadine/Pseudoephedrine 1 tab PO HS 11/14/16 [Loratadine-D 12 Hour Tablet] Meclizine [Antivert] 1 tab PO TID PRN 11/14/16 Atorvastatin [Lipitor] 10 mg PO HS 03/25/17 Lidocaine [Rectasmoothe] 1 appl TP DAILY PRN 03/25/17 Meloxicam [Mobic] 7.5 mg PO HS 03/25/17 Ondansetron [Zofran Tab] 4 mg PO TID PRN 03/25/17 Polyethylene Glycol/Polyvinyl 1 drop OP BID 03/25/17 [Artificial Tears] Promethazine DM [Phenergan DM 5 ml PO TID 03/25/17 Syrup] Albuterol/Ipratropium [Duoneb 3 3 ml INH RQ4 #30 neb 04/08/17 mg/0.5 mg (3 ml) UD] Clopidogrel [Plavix] 75 mg PO DAILY #30 tab 04/08/17 Docusate Sodium [Stool Softener] 100 mg PO DAILY PRN #30 tablet 04/08/17 Escitalopram [Lexapro] 5 mg PO HS #30 tab 04/08/17 Folic Acid 1 mg PO DAILY #30 tab 04/08/17 Furosemide [Lasix] 20 mg PO QOTHERDAY #30 tablet 04/08/17 Hydroxychloroquine Sulfate 200 mg PO BID #60 tablet 04/08/17 [Plaquenil] Hyoscyamine [Levsin] 1 tab PO HS PRN #30 tab 04/08/17 Methotrexate 2.5 mg PO QWK #4 tab 04/08/17 Metoprolol Succinate [Toprol XL] 1 tab PO DAILY #30 tab 04/08/17 Mirtazapine [Remeron] 30 mg PO HS #30 tab 04/08/17 Naloxegol Oxalate [Movantik] 25 mg PO DAILY #15 tablet 04/08/17 Pantoprazole Sodium [Protonix] 40 mg PO DAILY #30 tablet. 04/08/17 Prednisone [Deltasone] 20 mg PO DAILY #4 tablet 04/08/17 Ranitidine HCl [Zantac] 150 mg PO DAILY #30 tablet 04/08/17 Tetrahydrz/Dext 70/Peg 400/Pvp [Hm 1 drop OP BID #30 drops 04/08/17 Eye Drops Advanced Relief] rOPINIRole [Requip] 1 mg PO HS #30 tab 04/08/17 Famotidine [Pepcid] 20 mg PO Q12 #20 tab 05/05/17 Ondansetron [Zofran] 4 mg PO Q8H #10 tab 05/05/17 Oseltamivir [Tamiflu] 75 mg PO BID #10 cap 05/05/17 - Allergies Allergies/Adverse Reactions: Allergies Allergy/AdvReac Type Severity Reaction Status Date / Time No Known Allergies Allergy Verified 04/07/17 07:53 Review of Systems ROS Statement: Except As Marked, All Systems Reviewed And Found Negative Constitutional: Negative for: Fever Gastrointestinal: Positive for: Nausea, Abdominal Pain, Diarrhea. Negative for : Vomiting Physical Exam - Reviewed Nursing Documentation Reviewed: Yes Vital Signs Reviewed: Yes - Physical Exam Appears: Positive for: Non-toxic, No Acute Distress Head Exam: Positive for: ATRAUMATIC, NORMAL INSPECTION, NORMOCEPHALIC Skin: Positive for: Normal Color, Warm, DRY Eye Exam: Positive for: EOMI, Normal appearance, PERRL ENT: Positive for: Other (Mucous membranes dry) Neck: Positive for: Normal, Painless ROM Cardiovascular/Chest: Positive for: Regular Rate, Rhythm Respiratory: Positive for: CNT, Normal Breath Sounds Gastrointestinal/Abdominal: Positive for: Bowel Sounds, Soft, Tenderness (Mild epigastric) Back: Positive for: Normal Inspection Extremity: Positive for: Normal ROM Neurologic/Psych: Positive for: Alert, Oriented - Laboratory Results Result Diagrams: 05/05/17 11:14 05/05/17 11:14 - ECG O2 Sat by Pulse Oximetry: 90 Disposition - Clinical Impression Clinical Impression: Influenza, Gastritis - Patient ED Disposition Is Patient to be Admitted: No Counseled Patient/Family Regarding: Studies Performed, Diagnosis, Need For Followup, Rx Given - Disposition Referrals: [facility] [Outside] Disposition: Routine/Home Disposition Time: 14:39 Condition: FAIR Prescriptions: Famotidine [Pepcid] 20 mg PO Q12 #20 tab Ondansetron [Zofran] 4 mg PO Q8H #10 tab Oseltamivir [Tamiflu] 75 mg PO BID #10 cap Instructions: Gastritis (ED), Influenza (ED)
[2017-05-05 11:19] LABS: BASO # 0.1 K/uL (0.0-0.2); BASO % 0.9 % (0.0-2.0); EOS # 0.1 K/uL (0.0-0.7); HEMOGLOBIN 9.7 g/dL (12.0-16.0); LYMPH # 1.6 K/uL (1.0-4.3); LYMPH % 22.4 % (20.0-40.0); MEAN CELL VOLUME 96.6 fl (81.0-99.0); MEAN CORPUSCULAR HEMOGLOBIN 29.5 pg (27.0-31.0); MEAN CORPUSCULAR HGB CONC 30.5 g/dL (33.0-37.0); MONO # 0.4 K/uL (0.0-0.8); MONO % 5.8 % (0.0-10.0); NEUT # 4.9 K/uL (1.8-7.0); NEUT % 69.9 % (50.0-75.0); NRBC % 3.9 % (0.0-0.0); RBC 3.29 Mil/uL (3.80-5.20); RED CELL DISTRIBUTION WIDTH 22.2 % (11.5-14.5); WHITE BLOOD COUNT 6.9 K/uL (4.8-10.8)
[2017-05-05 11:51] LABS: ALB/GLOB RATIO 1.1 (1.0-2.1); ALBUMIN 3.6 g/dL (3.5-5.0); ALT/SGPT 38 U/L (9-52); AST/SGOT 35 U/L (14-36); BLOOD UREA NITROGEN 21 mg/dl (7-17); CALCIUM 9.1 mg/dL (8.4-10.2); GFR AFRICAN-AMERICAN > 60; GFR NON-AFRICAN AMERICAN > 60
[2017-05-05 14:58] VITALS: BP 147/78; PULSE 69; RESP 20; O2SAT 96
== END 2017-05-05 15:18 | disposition home or self-care (01) ==
LOC: H.ER 10:19
DX: K29.70 Gastritis, unspecified, without bleeding (principal); J11.1 Influenza due to unidentified influenza virus with other respiratory manifestations; I11.0 Hypertensive heart disease with heart failure; Z86.718 Personal history of other venous thrombosis and embolism; Z86.73 Personal history of transient ischemic attack (TIA), and cerebral infarction without residual deficits; Z95.5 Presence of coronary angioplasty implant and graft
CPT/HCPCS: 80053; 85025; 87804; 96361; 96374; 96375; 99284; J2405; J7040

== ENCOUNTER 2017-05-10 15:54 | Inpatient (IN) | payer MEDICAID ==
[2017-05-10] MEDS ORDERED: Sodium Chloride 0.9% 1,000 ML IV STA (16:11)
[2017-05-10 17:07] LABS: BASO % 1.1 % (0.0-2.0); EOS % 0.8 % (0.0-4.0); HEMOGLOBIN 9.6 g/dL (12.0-16.0); LYMPH # 1.2 K/uL (1.0-4.3); LYMPH % 28.8 % (20.0-40.0); MEAN CELL VOLUME 98.5 fl (81.0-99.0); MEAN CORPUSCULAR HEMOGLOBIN 29.5 pg (27.0-31.0); MEAN PLATELET VOLUME 10.6 fl (7.2-11.7); MONO # 0.1 K/uL (0.0-0.8); MONO % 1.9 % (0.0-10.0); NEUT # 2.9 K/uL (1.8-7.0); NEUT % 67.4 % (50.0-75.0); RBC 3.26 Mil/uL (3.80-5.20); RED CELL DISTRIBUTION WIDTH 23.8 % (11.5-14.5); WHITE BLOOD COUNT 4.3 K/uL (4.8-10.8)
[2017-05-10] MEDS ORDERED: Albuterol-Ipratrop 3 mg / 0.5 (3 ml) UD INH STA (17:13)
--- NOTE | 2017-05-10 17:17 | RAD ---
HISTORY: SOB COMPARISON: Comparison chest 04/07/2017 FINDINGS: LUNGS: Previously noted mild pulmonary vascular congestive changes improved. PLEURA: No significant pleural effusion identified, no pneumothorax apparent. CARDIOVASCULAR: Cardiomegaly unchanged OSSEOUS STRUCTURES: Minor degenerative osteoarthritis both shoulder girdles. VISUALIZED UPPER ABDOMEN: Normal. OTHER FINDINGS: None. IMPRESSION: Interval improvement previously noted mild pulmonary vascular congestion. Heart remains enlarged
[2017-05-10 17:21] LABS: ALB/GLOB RATIO 1.2 (1.0-2.1); ALBUMIN 3.8 g/dL (3.5-5.0); ALT/SGPT 38 U/L (9-52); AST/SGOT 73 U/L (14-36); BLOOD UREA NITROGEN 25 mg/dl (7-17); CALCIUM 8.7 mg/dL (8.4-10.2); GFR AFRICAN-AMERICAN > 60; GFR NON-AFRICAN AMERICAN 56
[2017-05-10 17:37] LABS: B-TYPE NATRIURETIC PEPTIDE 4160 pg/ml (0-900)
[2017-05-10] MEDS ORDERED: Albuterol-Ipratrop 3 mg / 0.5 (3 ml) UD ONE (18:18)
--- NOTE | 2017-05-10 18:43 | ED PDOC ---
HPI: General Adult Time Seen by Provider: 05/10/17 16:10 Chief Complaint (Nursing): Flu-like Symptoms Chief Complaint (Provider): shortness of breath History Per: Patient, Family History/Exam Limitations: clinical condition Onset/Duration Of Symptoms: Days (2), Gradual Current Symptoms Are (Timing): Still Present Severity: Severe Recently: Seen In ED, Treated By A Physician, Hospitalized Additional Complaint(s): 61yo female multiple medical problems notably COPD/ CAD/ OLIVIA/ recently diagnosed w flu, day 07/28 tamiflu, presents now w SOB, weakness, diarrhea and malaise, poor ability to ambulate. History limited due to respiratory distress. Past Medical History Reviewed: Historical Data, Nursing Documentation, Vital Signs Vital Signs: Last Vital Signs Temp 98.9 F 05/10/17 16:00 Pulse 60 05/10/17 19:15 Resp 20 05/10/17 18:27 BP 162/70 H 05/10/17 18:20 Pulse Ox 100 05/10/17 19:31 - Medical History PMH: Anemia, Anxiety, Arthritis, Asthma, Back Problems (chronic back pain), CAD , CHF, COPD, CVA (x3), Depression, Diverticulitis, Deep Vein Thrombosis, Gastritis, HTN, Hypercholesterolemia, Osteoporosis, Peripheral Edema, Rheumatoid Arthritis, Sleep Apnea, TIA Denies: HIV, Chronic Kidney Disease, Seizures (denies) - Surgical History Surgical History: Appendectomy, Coronary Stent ([facility]), (x2) Denies: Cholecystectomy - Family History Family History: States: Unknown Family Hx - Living Arrangements Living Arrangements: With Family - Social History Current smoker - smoking cessation education provided: No - Immunization History Hx Influenza Vaccination: Yes - Home Medications Home Medications: Ambulatory Orders Medication Instructions Recorded Alprazolam [Xanax] 0.5 mg PO HS 11/14/16 Escitalopram [Lexapro] 10 mg PO HS 11/14/16 Loratadine/Pseudoephedrine 1 tab PO HS 11/14/16 [Loratadine-D 12 Hour Tablet] Meclizine [Antivert] 1 tab PO TID PRN 11/14/16 Atorvastatin [Lipitor] 10 mg PO HS 03/25/17 Lidocaine [Rectasmoothe] 1 appl TP DAILY PRN 03/25/17 Meloxicam [Mobic] 7.5 mg PO HS 03/25/17 Ondansetron [Zofran Tab] 4 mg PO TID PRN 03/25/17 Polyethylene Glycol/Polyvinyl 1 drop OP BID 03/25/17 [Artificial Tears] Promethazine DM [Phenergan DM 5 ml PO TID 03/25/17 Syrup] Albuterol/Ipratropium [Duoneb 3 3 ml INH RQ4 #30 neb 04/08/17 mg/0.5 mg (3 ml) UD] Clopidogrel [Plavix] 75 mg PO DAILY #30 tab 04/08/17 Docusate Sodium [Stool Softener] 100 mg PO DAILY PRN #30 tablet 04/08/17 Escitalopram [Lexapro] 5 mg PO HS #30 tab 04/08/17 Folic Acid 1 mg PO DAILY #30 tab 04/08/17 Furosemide [Lasix] 20 mg PO QOTHERDAY #30 tablet 04/08/17 Hydroxychloroquine Sulfate 200 mg PO BID #60 tablet 04/08/17 [Plaquenil] Hyoscyamine [Levsin] 1 tab PO HS PRN #30 tab 04/08/17 Methotrexate 2.5 mg PO QWK #4 tab 04/08/17 Metoprolol Succinate [Toprol XL] 1 tab PO DAILY #30 tab 04/08/17 Mirtazapine [Remeron] 30 mg PO HS #30 tab 04/08/17 Naloxegol Oxalate [Movantik] 25 mg PO DAILY #15 tablet 04/08/17 Pantoprazole Sodium [Protonix] 40 mg PO DAILY #30 tablet. 04/08/17 Prednisone [Deltasone] 20 mg PO DAILY #4 tablet 04/08/17 Ranitidine HCl [Zantac] 150 mg PO DAILY #30 tablet 04/08/17 Tetrahydrz/Dext 70/Peg 400/Pvp [Hm 1 drop OP BID #30 drops 04/08/17 Eye Drops Advanced Relief] rOPINIRole [Requip] 1 mg PO HS #30 tab 04/08/17 Famotidine [Pepcid] 20 mg PO Q12 #20 tab 05/05/17 Ondansetron [Zofran] 4 mg PO Q8H #10 tab 05/05/17 Oseltamivir [Tamiflu] 75 mg PO BID #10 cap 05/05/17 - Allergies Allergies/Adverse Reactions: Allergies Allergy/AdvReac Type Severity Reaction Status Date / Time No Known Allergies Allergy Verified 04/07/17 07:53 Review of Systems Constitutional: Positive for: Chills, Weakness, Malaise Eyes: Negative for: Redness ENT: Positive for: Throat Pain. Negative for: Ear Discharge Cardiovascular: Positive for: Chest Pain, Palpitations, Orthopnea Respiratory: Positive for: Cough, Shortness of Breath Gastrointestinal: Negative for: Nausea, Vomiting, Abdominal Pain Genitourinary Female: Negative for: Dysuria Musculoskeletal: Positive for: Other (myalgia). Negative for: Neck Pain Skin: Negative for: Rash, Lesions Neurological: Positive for: Weakness (generalized), Headache, Dizziness. Negative for: Numbness Psych: Positive for: Anxiety Physical Exam - Reviewed Nursing Documentation Reviewed: Yes Vital Signs Reviewed: Yes - Physical Exam Appears: Positive for: Uncomfortable (+dyspnea) Head Exam: Positive for: ATRAUMATIC, NORMAL INSPECTION, NORMOCEPHALIC Skin: Positive for: Normal Color, Warm, DRY Eye Exam: Positive for: EOMI, Normal appearance, PERRL ENT: Positive for: Normal ENT Inspection Neck: Positive for: Normal, Painless ROM Cardiovascular/Chest: Positive for: Regular Rate, Rhythm Respiratory: Positive for: Decreased Breath Sounds, Respiratory Distress Gastrointestinal/Abdominal: Positive for: Bowel Sounds, Soft. Negative for: Tenderness Back: Positive for: Normal Inspection Extremity: Positive for: Pedal Edema (trace) Neurologic/Psych: Positive for: Alert, Oriented (mild confusion). Negative for : Motor/Sensory Deficits - Laboratory Results Result Diagrams: 05/10/17 16:55 05/10/17 16:55 - ECG ECG: Positive for: Interpreted By Me ECG Rhythm: Positive for: Sinus Bradycardia, Nonspecific Changes O2 Sat by Pulse Oximetry: 100 Pulse Ox Interpretation: Normal - Radiology X-Ray: Read By Radiologist X-Ray Interpretation: Other (vascular congestion) - Critical Care Total Time (In Min): 45 Comments: patient required immediate bedside attention with NIPVV resp support Nebulizer Treatments/Peak Flow - Duonebs Number of Bronchodilator Doses given?: 1 - Clinical Response Clinical Response: Unchanged Medical Decision Making Medical Decision Making: workup for respiratory failure in setting of recent Dx influenza initiated Tamiflu day 07/28 today Also remains bradycardic HR 48-52 sinus, BP borderline elevated. Pt takes metoprolol per hx. Remained dyspneic on supplemental O2, bipap initiated 10/5mm. labs reviewed +elev BNP borderline trop WBC 4.3 mild leukopenia c/w flu stable anemia +flu last visit CXR reviewed, +vascular congestion low dose lasix initiated improved somewhat on bipap but ABG 90min on bipap still retaining CO2, place ICU for night, Dr Villegas aware Disposition - Clinical Impression Clinical Impression: Influenza-like symptoms, Acute respiratory failure with hypoxia and hypercarbia - Patient ED Disposition Is Patient to be Admitted: Yes Counseled Patient/Family Regarding: Studies Performed, Diagnosis - Disposition Disposition Time: 18:40 Condition: GUARDED Forms: [facility] (Estonian)
[2017-05-10 19:13] LABS: ABG ALLEN TEST YES; ARTERIAL BLOOD GAS HCO3 23.1 mmol/L (21-28); ARTERIAL BLOOD GAS HEMOGLOBIN 10.1 g/dL (11.7-17.4); ARTERIAL BLOOD GAS O2 CAPACITY 14.1 mL/dL (16-24); ARTERIAL BLOOD GAS O2 SAT 99.6 % (95-98); ARTERIAL BLOOD GAS PCO2 51 mm/Hg (35-45); ARTERIAL BLOOD GAS PH 7.29 (7.35-7.45); ARTERIAL BLOOD GAS PO2 171 mm/Hg (80-100); ARTERIAL BLOOD GAS TCO2 26.1 mmol/L (22-28)
--- NOTE | 2017-05-10 19:38 | CP.PCM.HP ---
History of Present Illness - History of Present Illness History of Present Illness: PMD: Dr. Albright Thermodynamics Engineer: Dr. Goel Chief Complaint: SOB/ Diarrhea/Abdominal Pain The Patient was seen and examined in the ED HPI: The hx was obtained from the patient's Friend and after review of the medical records. She is a 61 years old female with hx of Pulmonary Artery Hypertension, Sleep Apnea on CPAP, Asthma/ COPD on Home oxygen and CVA who was last admitted on 04/07/17 and diagnosed with Acute CHF and Cor pulmonale, now comes with one week being dx with the flu on Tamiflu, and 3 days of Diarrhea, abdominal pain , not eating, weakness, SOB , poor ability to Ambulate. 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; , Depression, Diverticulitis, DVT, Gastritis, HTN, HLD, Osteoporosis, Peripheral Edema, RA, Sleep Apnea using CPAP, TIA, Severe PAH; PSH: Carpal Tunnel Surgery; C Section X2; Bunion removal; Splenectomy; appendectomy SH: Live in [place] with grandchildren; No smoking; No ETOH use; worked in a leather factory FH: Mother had HTN; DM; CABG Father had CVA, HTN, DM Allergy: NKDA Medication: Reviewed Present on Admission - Present on Admission Any Indicators Present on Admission: No History of DVT/PE: No History of Uncontrolled Diabetes: No Urinary Catheter: No Decubitus Ulcer Present: No Review of Systems - Review of Systems Systems not reviewed;Unavailable: Respiratory Distress - Constitutional Constitutional: Anorexia, Fatigue. absent: Chills, Fever, Headache - EENT Eyes: Requires Corrective Lenses. absent: Diplopia, Photophobia, Sees Flashes Ears: absent: Decreased Hearing, Ear Pain, Tinnitus, Dizziness Nose/Mouth/Throat: absent: Epistaxis, Nasal Congestion, Sinus Pain, Sinus Pressure - Cardiovascular Cardiovascular: Dyspnea. absent: Chest Pain, Leg Edema - Respiratory Respiratory: Cough, Dyspnea. absent: Wheezing, Stridor - Gastrointestinal Gastrointestinal: Diarrhea, Nausea. absent: Constipation, Vomiting - Genitourinary Genitourinary: absent: Dysuria, Flank Pain, Hematuria - Musculoskeletal Musculoskeletal: Back Pain. absent: Arthralgias - Integumentary Integumentary: absent: Pruritus, Rash, Skin Ulcer, Sores, Striae, Swelling - Neurological Neurological: Weakness. absent: Confusion, Dizziness, Focal Weakness, Headaches - Psychiatric Psychiatric: absent: Anxiety, Depression, Panic Attacks - Endocrine Endocrine: absent: Palpitations, Polydipsia, Polyphagia, Polyuria - Hematologic/Lymphatic Hematologic: absent: Easy Bleeding, Easy Bruising Past Patient History - Infectious Disease Hx of Infectious Diseases: None - Tetanus Immunizations Tetanus Immunization: Unknown - Past Medical History & Family History Past Medical History?: Yes - Past Social History Smoking Status: Never Smoked Chewing Tobacco Use: No Cigar Use: No Alcohol: None Drugs: Denies Home Situation {Lives}: With Family - CARDIAC Hx Congestive Heart Failure: Yes Hx Hypercholesterolemia: Yes Hx Hypertension: Yes Hx Peripheral Edema: Yes - PULMONARY Hx Asthma: Yes Hx Chronic Obstructive Pulmonary Disease (COPD): Yes Hx Sleep Apnea: Yes - NEUROLOGICAL Hx Seizures: No (denies) Hx Transient Ischemic Attacks (TIA): Yes - HEENT Hx HEENT Problems: No - RENAL Hx Chronic Kidney Disease: No - ENDOCRINE/METABOLIC Hx Endocrine Disorders: No - HEMATOLOGICAL/ONCOLOGICAL Hx Anemia: Yes Hx Human Immunodeficiency Virus (HIV): No - INTEGUMENTARY Hx Dermatological Problems: No - MUSCULOSKELETAL/RHEUMATOLOGICAL Hx Arthritis: Yes Hx Osteoporosis: Yes Hx Rheumatoid Arthritis: Yes - GASTROINTESTINAL Hx Diverticulitis: Yes Hx Gastritis: Yes - GENITOURINARY/GYNECOLOGICAL Hx Genitourinary Disorders: Yes - PSYCHIATRIC Hx Anxiety: Yes Hx Depression: Yes - SURGICAL HISTORY Hx Appendectomy: Yes Hx Cholecystectomy: No Hx Coronary Stent: Yes ([facility]) - ANESTHESIA Hx Anesthesia: Yes Hx Anesthesia Reactions: No Hx Malignant Hyperthermia: No Meds Allergies/Adverse Reactions: Allergies Allergy/AdvReac Type Severity Reaction Status Date / Time No Known Allergies Allergy Verified 04/07/17 07:53 Physical Exam - Constitutional Appears: In Acute Distress - Head Exam Head Exam: ATRAUMATIC, NORMAL INSPECTION, NORMOCEPHALIC Additional comments: Has BIPAP in place - Eye Exam Eye Exam: EOMI, Normal appearance Pupil Exam: NORMAL ACCOMODATION, PERRL - ENT Exam ENT Exam: Mucous Membranes Dry, Normal Exam, Normal External Ear Exam - Neck Exam Neck exam: Positive for: Full Rom, Normal Inspection. Negative for: Lymphadenopathy, Tenderness - Respiratory Exam Respiratory Exam: absent: Rales, Rhonchi, Wheezes Additional comments: Decreased breath sounds globally - Cardiovascular Exam Cardiovascular Exam: REGULAR RHYTHM, +S1, +S2. absent: Gallop, RRR - GI/Abdominal Exam Additional comments: Obese, soft, non tender, +ve bowel sounds. - Rectal Exam Rectal Exam: Deferred - Extremities Exam Extremities exam: Positive for: normal inspection. Negative for: calf tenderness, joint swelling, pedal edema - Back Exam Back exam: NORMAL INSPECTION. absent: CVA tenderness (L), CVA tenderness (R) - Neurological Exam Neurological exam: Alert, CN II-XII Intact, Oriented x3, Reflexes Normal - Psychiatric Exam Psychiatric exam: Normal Affect, Normal Mood - Skin Skin Exam: Dry, Intact, Normal Color, Warm Results - Vital Signs Recent Vital Signs: Last Vital Signs Temp 98.9 F 05/10/17 16:00 Pulse 60 05/10/17 19:15 Resp 20 05/10/17 18:27 BP 162/70 H 05/10/17 18:20 Pulse Ox 100 05/10/17 19:35 - Labs Result Diagrams: 05/10/17 16:55 05/10/17 16:55 Labs: Laboratory Results - last 24 hr 05/10/17 05/10/17 05/10/17 16:47 16:55 16:55 WBC 4.3 L RBC 3.26 L Hgb 9.6 L Hct 32.1 L MCV 98.5 MCH 29.5 MCHC 30.0 L RDW 23.8 H Plt Count 108 L MPV 10.6 Neut % (Auto) 67.4 Lymph % (Auto) 28.8 Baca % (Auto) 1.9 Eos % (Auto) 0.8 Baso % (Auto) 1.1 Neut # (Auto) 2.9 Lymph # (Auto) 1.2 [place] # (Auto) 0.1 Eos # (Auto) 0.0 Baso # (Auto) 0.0 pCO2 pO2 HCO3 ABG pH ABG Total CO2 ABG O2 Saturation ABG O2 Content ABG Base Excess ABG Hemoglobin ABG Carboxyhemoglobin POC ABG HHb (Measured) ABG Methemoglobin ABG O2 Capacity Gio Test A-a O2 Difference Hgb O2 Saturation FiO2 Sodium 145 Potassium 5.7 H Chloride 110 H Carbon Dioxide 22 Anion Gap 19 BUN 25 H Creatinine 1.0 Est GFR ( Amer) > 60 Est GFR (Non-Af Amer) 56 POC Glucose (mg/dL) 77 Random Glucose 87 Calcium 8.7 Total Bilirubin 2.0 H AST 73 H D ALT 38 Alkaline Phosphatase 164 H D Troponin I 0.0630 NT-Pro-B Natriuret Pep 4160 H Total Protein 6.8 Albumin 3.8 Globulin 3.0 Albumin/Globulin Ratio 1.2 05/10/17 18:58 WBC RBC Hgb Hct MCV MCH MCHC RDW Plt Count MPV Neut % (Auto) Lymph % (Auto) Baca % (Auto) Eos % (Auto) Baso % (Auto) Neut # (Auto) Lymph # (Auto) [place]aca # (Auto) Eos # (Auto) Baso # (Auto) pCO2 51 H pO2 171 H HCO3 23.1 ABG pH 7.29 L ABG Total CO2 26.1 ABG O2 Saturation 99.6 H ABG O2 Content 14.0 L ABG Base Excess -2.3 L ABG Hemoglobin 10.1 L ABG Carboxyhemoglobin 1.2 POC ABG HHb (Measured) 0.4 ABG Methemoglobin 2.6 ABG O2 Capacity 14.1 L Gio Test Yes A-a O2 Difference 122.0 Hgb O2 Saturation 95.7 FiO2 50.0 Sodium Potassium Chloride Carbon Dioxide Anion Gap BUN Creatinine Est GFR ( Amer) Est GFR (Non-Af Amer) POC Glucose (mg/dL) Random Glucose Calcium Total Bilirubin AST ALT Alkaline Phosphatase Troponin I NT-Pro-B Natriuret Pep Total Protein Albumin Globulin Albumin/Globulin Ratio - Imaging and Cardiology CT scan - abdomen Status: Image reviewed by me Additional comment: EXAM: CT Abdomen and Pelvis With Intravenous Contrast FINDINGS: Lower thorax: There are small bilateral pleural effusions with overlying atelectasis. Right lung base calcified granuloma. ABDOMEN: Liver: Unremarkable. No mass. Gallbladder and bile ducts: Unremarkable. No calcified stones. No ductal dilation. Pancreas: Unremarkable. No mass. No ductal dilation. Spleen: Unremarkable. No splenomegaly. Adrenals: Unremarkable. No mass. Kidneys and ureters: Unremarkable. No solid mass. No hydronephrosis. Stomach and bowel: The cecum and ascending colon are thick walled with mild adjacent inflammatory stranding suggesting acute colitis. Extensive diverticulosis is present in the sigmoid and descending colon. The sigmoid colon appears thickwalled probably secondary to nondistention. Appendix: A normal appendix is identified. PELVIS: Bladder: Unremarkable. No mass. Reproductive: Unremarkable as visualized. ABDOMEN and PELVIS: Intraperitoneal space: Unremarkable. No free air. No significant fluid collection. Bones/joints: Multiple compression fractures in the thoracolumbar spine with kyphosis, unchanged. Soft tissues: Unremarkable. Vasculature: An inferior vena cava filter lies in appropriate position. No abdominal aortic aneurysm. Lymph nodes: Unremarkable. No enlarged lymph nodes IMPRESSION: The cecum and ascending colon are thick walled with mild adjacent inflammatory stranding suggesting acute colitis. The sigmoid colon appears thickwalled probably secondary to nondistention. Colitis is not excluded. Severe sigmoid diverticulosis. Small bilateral pleural effusions with overlying atelectasis. Right lung base calcified granuloma. Chest x-ray Status: Image reviewed by me Additional comment: Bibasal opacity. Increased cardiac silhouette Assessment & Plan - Assessment and Plan (Free Text) Assessment: #. Acute on Chronic Hypercarbic respiratory failure #. Acute on chronic CHF #. Acute Colitis #. Hyperkalemia #. Influenza #. Anemia #. Azotemia Plan: 61 years old female with hx of Pulmonary Artery Hypertension, Sleep Apnea on CPAP, Asthma/ COPD on Home oxygen and CVA who was last admitted on 04/07/17 and diagnosed with Acute CHF and Cor pulmonale, now comes with one week being dx with the flu on Tamiflu, and 3 days of Diarrhea, abdominal pain , not eating, weakness, SOB , poor ability to Ambulate #. Acute on Chronic Hypercarbic respiratory failure due to CHF and COPD - BIPAP, adjust to reduce PCO2 - Consult Dr Thomas pulmonary - Follow Blood Gas #. Acute on chronic CHF - Lasix - Hold Metoprolol because of Bradycardia #. Acute Colitis, with diarrhea and abdominal pains - Stool for Culture - C Diff Toxins - Flagyl #. Hyperkalemia - follow electrolytes #. Influenza - droplet Isolation - Tamiflu 2 more doses #. Anemia - follow Hb #. Azotemia - follow Renal labs #. DVT prophylaxis with lovenox #. Code Status: DNR/DNI - Date & Time Date: 05/10/17 Time: 19:38
[2017-05-10] MEDS ORDERED: Hyoscyamine 0.125 mg SL Tab PO PRN ×2 (20:39→20:51)
[2017-05-10] MEDS ORDERED: Dextrose 50% SYRINGE Inj (50 ml) IVP ONE (20:58)
[2017-05-10] MEDS ORDERED: Insulin Regular 100 units/ml SC STA (21:00)
[2017-05-10] MEDS ORDERED: Iohexol 240 (50 ml) PO ONE (21:14)
[2017-05-10] MEDS ORDERED: Insulin Regular 100 units/ml ONE (21:30)
[2017-05-10] MEDS ORDERED: Dextrose 50% SYRINGE Inj (50 ml) ONE (21:30)
[2017-05-10] MEDS ORDERED: Iohexol 300 100 ML IJ ONE (23:12)
[2017-05-10] MEDS ORDERED: Sodium Chloride 0.9% 50 ML IV ONE (23:12)
[2017-05-10 23:18] LABS: SQUAMOUS EPITHIAL 1 /hpf (0-5); URINE BACTERIA RARE (<OCC); URINE BILIRUBIN NEGATIVE (NEGATIVE); URINE BLOOD NEGATIVE (NEGATIVE); URINE CLARITY CLEAR (Clear); URINE COLOR YELLOW (YELLOW); URINE GLUCOSE (UA) NEG (Normal); URINE LEUKOCYTE ESTERASE NEG Leu/uL (Negative); URINE NITRATE NEGATIVE (NEGATIVE); URINE PROTEIN 30 mg/dL (NEGATIVE); URINE UROBILINOGEN 0.2-1.0 mg/dL (0.2-1.0)
[2017-05-10 23:27] LABS: VENOUS BLOOD GAS BASE EXCESS 0.2 mmol/L (0.0-2.0); VENOUS BLOOD GAS PCO2 73 mmHg (40-60); VENOUS BLOOD GAS PO2 19 mm/Hg (30-55); VENOUS BLOOD PH 7.22 (7.32-7.43)
[2017-05-10] MEDS: Albuterol-Ipratrop 3 mg / 0.5 (3 ml) UD INH SCH (23:44)
--- NOTE | 2017-05-11 00:20 | CT ---
EXAM: CT Abdomen and Pelvis With Intravenous Contrast CLINICAL HISTORY: 61 years old, female; Pain; Abdominal pain; Generalized; Prior surgery; Surgery date: 6+ months; Surgery type: Appendectomy c section coronary stent; Additional info: Diarrhea with abdominal pain for 3 days. TECHNIQUE: Axial computed tomography images of the abdomen and pelvis with intravenous contrast. All CT scans at this facility use one or more dose reduction techniques, viz.: automated exposure control; ma/kV adjustment per patient size (including targeted exams where dose is matched to indication; i.e. head); or iterative reconstruction technique. Coronal and sagittal reformatted images were created and reviewed. CONTRAST: 95 mL of [id number] administered intravenously. COMPARISON: CT - ABD PELVIS PO IV CONTRAST 2016-12-25 16:51 FINDINGS: Lower thorax: There are small bilateral pleural effusions with overlying atelectasis. Right lung base calcified granuloma. ABDOMEN: Liver: Unremarkable. No mass. Gallbladder and bile ducts: Unremarkable. No calcified stones. No ductal dilation. Pancreas: Unremarkable. No mass. No ductal dilation. Spleen: Unremarkable. No splenomegaly. Adrenals: Unremarkable. No mass. Kidneys and ureters: Unremarkable. No solid mass. No hydronephrosis. Stomach and bowel: The cecum and ascending colon are thick walled with mild adjacent inflammatory stranding suggesting acute colitis. Extensive diverticulosis is present in the sigmoid and descending colon. The sigmoid colon appears thickwalled probably secondary to nondistention. Appendix: A normal appendix is identified. PELVIS: Bladder: Unremarkable. No mass. Reproductive: Unremarkable as visualized. ABDOMEN and PELVIS: Intraperitoneal space: Unremarkable. No free air. No significant fluid collection. Bones/joints: Multiple compression fractures in the thoracolumbar spine with kyphosis, unchanged. Soft tissues: Unremarkable. Vasculature: An inferior vena cava filter lies in appropriate position. No abdominal aortic aneurysm. Lymph nodes: Unremarkable. No enlarged lymph nodes. IMPRESSION: The cecum and ascending colon are thick walled with mild adjacent inflammatory stranding suggesting acute colitis. The sigmoid colon appears thickwalled probably secondary to nondistention. Colitis is not excluded. Severe sigmoid diverticulosis. Small bilateral pleural effusions with overlying atelectasis. Right lung base calcified granuloma.
[2017-05-11] MEDS ORDERED: metroNIDAZOLE 500mg/100ml NS 100 ML IVPB SCH (02:00)
[2017-05-11] MEDS: Albuterol-Ipratrop 3 mg / 0.5 (3 ml) UD INH SCH ×6 (05:08→23:39)
[2017-05-11 05:20] LABS: ABG ALLEN TEST YES; ARTERIAL BLOOD GAS HCO3 27.2 mmol/L (21-28); ARTERIAL BLOOD GAS HEMOGLOBIN 9.3 g/dL (11.7-17.4); ARTERIAL BLOOD GAS O2 CAPACITY 12.7 mL/dL (16-24); ARTERIAL BLOOD GAS O2 CONTENT 12.2 ML/dL (15-23); ARTERIAL BLOOD GAS O2 SAT 95.9 % (95-98); ARTERIAL BLOOD GAS PCO2 58 mm/Hg (35-45); ARTERIAL BLOOD GAS PH 7.32 (7.35-7.45); ARTERIAL BLOOD GAS PO2 68 mm/Hg (80-100); ARTERIAL BLOOD GAS TCO2 31.7 mmol/L (22-28)
[2017-05-11 05:53] LABS: ALB/GLOB RATIO 1.2 (1.0-2.1); ALBUMIN 3.2 g/dL (3.5-5.0); ALT/SGPT 53 U/L (9-52); AST/SGOT 47 U/L (14-36); BLOOD UREA NITROGEN 25 mg/dl (7-17); CALCIUM 8.6 mg/dL (8.4-10.2); GFR AFRICAN-AMERICAN > 60; GFR NON-AFRICAN AMERICAN 56
[2017-05-11] MEDS ORDERED: Dextrose 50% SYRINGE Inj (50 ml) IVP ONE (05:53)
[2017-05-11 05:55] LABS: BASO % 0.4 % (0.0-2.0); EOS % 0.2 % (0.0-4.0); LYMPH # 0.7 K/uL (1.0-4.3); LYMPH % 11.3 % (20.0-40.0); MEAN CELL VOLUME 97.4 fl (81.0-99.0); MEAN CORPUSCULAR HEMOGLOBIN 30.1 pg (27.0-31.0); MEAN CORPUSCULAR HGB CONC 30.9 g/dL (33.0-37.0); MEAN PLATELET VOLUME 10.1 fl (7.2-11.7); MONO # 0.1 K/uL (0.0-0.8); MONO % 1.7 % (0.0-10.0); NEUT # 5.6 K/uL (1.8-7.0); NEUT % 86.4 % (50.0-75.0); NRBC % 1.9 % (0.0-0.0); RED CELL DISTRIBUTION WIDTH 23.4 % (11.5-14.5); WHITE BLOOD COUNT 6.5 K/uL (4.8-10.8)
[2017-05-11] MEDS ORDERED: Glucagon Recombinant 1 mg Inj IM ONE (05:55)
[2017-05-11] MEDS: Artificial Tears Opht Soln OD SCH ×2 (08:30→17:08)
[2017-05-11] MEDS: Enoxaparin 40 mg Syringe SC SCH (08:31)
[2017-05-11] MEDS: metroNIDAZOLE 500mg/100ml NS 100 ML IVPB SCH ×2 (10:49→19:58)
--- NOTE | 2017-05-11 12:33 | CP.PCM.PN ---
Subjective - Date & Time of Evaluation Date of Evaluation: 05/11/17 Time of Evaluation: 08:00 - Subjective Subjective: Patient was seen and examined at bedside this morning. Overnight the patient developed hypoglycemia with a blood glucose of 36 and was given D50 and D5W at 44 cc/hour with good improvement. She states that she continues to feel weak. Still c/o abdominal pain, generalized. Shortness of breath has improved. Bradycardia has improved. Family at bedside. Objective - Vital Signs/Intake and Output Vital Signs (last 24 hours): Temp Pulse Resp BP Pulse Ox 97.5 F L 62 33 H 100/46 L 95 05/11/17 12:00 05/11/17 12:00 05/11/17 12:00 05/11/17 12:00 05/11/17 12:00 Intake and Output: 05/11/17 05/11/17 06:59 18:59 Intake Total 100 88 Output Total 1000 Balance -900 88 - Medications Medications: Current Medications Albuterol/Ipratropium (Duoneb 3 Mg/0.5 Mg (3 Ml) Ud) 3 ml INH RQ4 [facility] Last Admin: 05/11/17 11:51 Dose: 3 ml Alprazolam (Xanax) 0.5 mg PO HS [facility] Artificial Tears (Artificial Tears) 1 drop OD BID [facility] Last Admin: 05/11/17 08:30 Dose: 1 drop Clopidogrel Bisulfate (Plavix) 75 mg PO DAILY [facility] Last Admin: 05/11/17 08:32 Dose: 75 mg Enoxaparin Sodium (Lovenox) 40 mg SC DAILY [facility] PRN Reason: Protocol Last Admin: 05/11/17 08:31 Dose: 40 mg Escitalopram Oxalate (Lexapro) 5 mg PO HS [facility] Last Admin: 05/10/17 23:31 Dose: 5 mg Famotidine (Pepcid) 20 mg PO Q12 [facility] Last Admin: 05/11/17 08:32 Dose: 20 mg Folic Acid (Folic Acid) 1 mg PO DAILY [facility] Last Admin: 05/11/17 08:30 Dose: 1 mg Furosemide (Lasix) 20 mg IVP DAILY [facility] Last Admin: 05/11/17 08:31 Dose: 20 mg Home Med (Ropinirole [Requip]) 1 mg PO HS [facility] Hydroxychloroquine Sulfate (Plaquenil) 200 mg PO BID [facility] Last Admin: 05/11/17 08:32 Dose: 200 mg Hyoscyamine (Levsin) 0.125 mg PO HS PRN PRN Reason: Indigestion Metronidazole (Flagyl 500mg/100ml Ns) 100 mls @ 100 mls/hr IVPB Q8@0300,1100, 1900 [facility] PRN Reason: Protocol Last Admin: 05/11/17 10:49 Dose: 100 mls/hr Dextrose (Dextrose 5% In Water 1000 Ml) 1,000 mls @ 44 mls/hr IV .[id number] [facility] Stop: 05/12/17 05:59 Last Admin: 05/11/17 06:15 Dose: 44 mls/hr Methotrexate (Methotrexate) 2.5 mg PO QWK [facility] PRN Reason: Protocol Mirtazapine (Remeron) 30 mg PO HS [facility] Last Admin: 05/10/17 23:31 Dose: 30 mg Morphine Sulfate (Morphine) 2 mg IVP Q4 PRN PRN Reason: Pain, moderate (4-7) Ondansetron HCl (Zofran Inj) 4 mg IVP Q4 PRN PRN Reason: Nausea/Vomiting Oseltamivir Phosphate (Tamiflu Cap) 75 mg PO BID [facility] PRN Reason: Protocol Stop: 05/11/17 17:01 Last Admin: 05/11/17 08:32 Dose: 75 mg Prednisone (Prednisone Tab) 20 mg PO DAILY [facility] Last Admin: 05/11/17 08:32 Dose: 20 mg - Labs Labs: 05/11/17 04:50 05/11/17 04:50 - Additional Findings Additional findings: Physical exam: Constitutional- cooperative, awake, alert Head- NCAT, PERRL Eye- PERRL, EOMI ENT- normal exam, MMM. Neck- normal inspection, supple, no JVD Respiratory- CTAB, decreased breath sounds, no wheezes rales rhonchi Cardiovascular- RRR, +S1, +S2 no MRG GI/Abdominal- normal bowel sounds, soft, tenderness to palpation, no mass, no hsm Skin- warm, dry Extremities Exam- normal capillary refill, normal inspection Neurological Exam- alert, awake, oriented Psych- normal mood, normal affect Assessment and Plan - Assessment and Plan (Free Text) Plan: #. Acute on Chronic Hypercarbic respiratory failure #. Acute on chronic CHF #. Acute Colitis #. Hyperkalemia #. Influenza #. Anemia #. Azotemia Plan: 61 years old female with hx of Pulmonary Artery Hypertension, Sleep Apnea on CPAP, Asthma/ COPD on Home oxygen and CVA who was last admitted on 04/07/17 and diagnosed with Acute CHF and Cor pulmonale, now comes on 05/10/2017 with one week being dx with the flu on Tamiflu, and 3 days of Diarrhea, abdominal pain , not eating, weakness, SOB , poor ability to Ambulate 1). Acute on Chronic Hypercarbic respiratory failure due to CHF and COPD - BIPAP now discontinued; saturating well on nasal cannula - Consult Dr Thomas pulmonary - Blood gas shows some improvement; still hypercapneic 2). Acute on chronic CHF - Lasix 60 mg IV given in ED; continue 20 mg IVP daily - I&O, Daily weights - Hold Metoprolol because of Bradycardia 3). Acute Colitis, with diarrhea and abdominal pains - Stool for Culture - C Diff Toxins - Flagyl 4). Hyperkalemia - resolved - Repeat labs in AM 5). Influenza - droplet Isolation - completing Tamiflu today 6). Anemia - follow Hb 7). Azotemia - follow Renal labs 8). DVT prophylaxis with lovenox 9). Code Status: DNR/DNI
--- NOTE | 2017-05-11 13:27 | PQF GENQUE ---
PATIENT HAS SEVERE PULMONARY HYPERTENSION SEVERE MITRAL REGURGITATION AND TRICUSPID REGURGITATION PRESERVED LEFT VENTRICULAR EJECTION FRACTION This form is a permanent part of the medical record 05/11/17 Dr. Jimenez, Please specify the type of heart failure in your progress notes. Admitted with one week being diagnosed with the flu on Tamiflu and 3 days diarrhea, abdominal pain, not eating, weakness and poor ability to ambulate. Documentation of Acute on Chronic CHF. Treated with IV Lasix. Metoprolol on hold due to bradycardia. Pro BNP 4160. CXR: Interval improvement previously noted mild pulmonary vascular congestion. ECHO 08/23/16: EF 60-65%, LA & RA mildly dilated, moderate to severe MR/TR/ Pulmonary HTN Clarification of your documentation is requested to better reflect the severity of illness and intensity of treatment of your patient. PHYSICIAN'S RESPONSE Based on your medical judgment of the clinical indicators outlined above please clarify the following: [] Practitioner response [] If unable to determine, please check the box, sign and date. Present On Admission (POA) Indicator: [] Present at the time of admission [] Not present at the time of admission [] Clinically Undetermined In responding to this query, please exercise your independent professional judgment. The fact that a question is asked does not imply that any particular answer is desired or expected. Thank you for your clarification on this documentation. If you have any questions please call:ext [phone] * Thank you, Renee Lucas RN CDMP [facility]
--- NOTE | 2017-05-11 13:37 | PQF GENQUE ---
PATIENT HAS ANEMIA OF CHRONIC DISEASE This form is a permanent part of the medical record 05/11/17 Dr. Jimenez, Please clarify the type of Anemia if known. Documentation of a history of anemia . H&H 9.6/32.1. MCV normal 98.5, MCH normal 29.5. Being treated with Folic Acid. Clarification of your documentation is requested to better reflect the severity of illness and intensity of treatment of your patient. Indicators present PHYSICIAN'S RESPONSE TYPE OF ANEMIA [] Blood loss anemia, chronic [] Chronic anemia [] Deficiency anemia (please specify type) [] Due to/in/with antineoplastic chemotherapy [] Due to/in/with chronic kidney disease [] Due to/in/with kidney failure [] Due to/in/with neoplastic disease [] Iron deficiency anemia [] Macrocytic anemia [] Microcytic anemia [] Normocytic anemia [] Postoperative blood loss anemia [] Pernicious anemia [] Other anemia (please specify) [] Clinically june ble to determine [] Unknown Based on your medical judgment of the clinical indicators outlined above please clarify the following: [] Practitioner response [] If unable to determine, please check the box, sign and date. Present On Admission (POA) Indicator: [] Present at the time of admission [] Not present at the time of admission [] Clinically Undetermined In responding to this query, please exercise your independent professional judgment. The fact that a question is asked does not imply that any particular answer is desired or expected. Thank you for your clarification on this documentation. If you have any questions please call:ext [phone] * Thank you, Renee Lucas RN CDMP MTDD
--- NOTE | 2017-05-11 13:44 | PQF GENQUE ---
THROMBOCYTOPENIA, UNCERTAIN ETIOLOGY, MAY BE LAB ERROR. MONITOR CBC This form is a permanent part of the medical record 05/11/17 Dr. Jimenez, Please clarify if there is an associated diagnosis or not to go along with the platelet count. Admitted with a platelet count of 108 which has dropped to 49. CBC being monitored. Clarification of your documentation is requested to better reflect the severity of illness and intensity of treatment of your patient. Indicators present [] Specify: [] [] Specify: [] [] Specify: [] [] Specify: [] Location in the medical record that reflects the above clinical findings: [] Treatment Provided: [] PHYSICIAN'S RESPONSE Based on your medical judgment of the clinical indicators outlined above please clarify the following: [] Practitioner response [] If unable to determine, please check the box, sign and date. Present On Admission (POA) Indicator: [] Present at the time of admission [] Not present at the time of admission [] Clinically Undetermined In responding to this query, please exercise your independent professional judgment. The fact that a question is asked does not imply that any particular answer is desired or expected. Thank you for your clarification on this documentation. If you have any questions please call:extension [phone] * Thank you, Renee Lucas RN CDW[facility]
--- NOTE | 2017-05-11 16:37 | CP.PCM.CON ---
History of Present Illness - History of Present Illness History of Present Illness: CC: Respiratory Failure. 61 y/o F, Multiple chronic medical conditions, including OLIVIA, COPD/Asthma with O2 at home, Hx CVA x3, TIA, CHF with coronary stent, brought to ER [facility] [place] to have evaluation for SOB x 2 days TOE FORMER, using O2 at home with no relief. Pt came to ED c/o of of 3 days with SOB, diarrhea , abdominal pain, gradually increased to severe on DOA associated to productive cough, non bloody, REBOLLEDO. Worsening symptoms: Generalized weakness, malaise, dizziness, Throat pain. Pt one week ago Dx with Flu, on 05/10/17 day 5/5 Tamiflu. Aggravated factor: Poor ability to ambulate 2nd to clinical condition. CXR shows: Mild Pulmonary vascular congestion changes, no pleural effusion, no Pneumothorax. Abd/Pelv CT showed: Small b/l pleural effusion, R lung base calcified granuloma , ascending colon acute colitis sigmoid colon severe diverticulitis , colitis is not excluded Review of Systems - Constitutional Constitutional: Malaise, Sleep Apnea, Weakness - EENT Eyes: Other (negative) Ears: Other (negative) Nose/Mouth/Throat: Other (negative) - Cardiovascular Cardiovascular: Dyspnea - Respiratory Respiratory: Cough, Dyspnea, Dyspnea on Exertion, Chest Congestion - Gastrointestinal Gastrointestinal: Abdominal Pain - Genitourinary Genitourinary: Other (negative) - Musculoskeletal Musculoskeletal: Arthralgias, Back Pain - Integumentary Integumentary: Other (negative) - Neurological Neurological: Weakness - Psychiatric Psychiatric: Anxiety, Depression - Endocrine Endocrine: Other (negative) - Hematologic/Lymphatic Hematologic: Other (negative) Past Patient History - Infectious Disease Hx of Infectious Diseases: None - Tetanus Immunizations Tetanus Immunization: Unknown - Past Medical History & Family History Past Medical History?: Yes Pertinent Family History: Father: CVA, HTN DM. Mother: HTN, DM, CABG - Past Social History Smoking Status: Never Smoked Chewing Tobacco Use: No Cigar Use: No Alcohol: None Drugs: Denies Home Situation {Lives}: With Family - CARDIAC Hx Cardiac Disorders: Yes Hx Congestive Heart Failure: Yes Hx Hypercholesterolemia: Yes Hx Hypertension: Yes Hx Peripheral Edema: Yes - PULMONARY Hx Respiratory Disorders: Yes Hx Asthma: Yes Hx Chronic Obstructive Pulmonary Disease (COPD): Yes Hx Sleep Apnea: Yes - NEUROLOGICAL Hx Neurological Disorder: Yes HX Cerebrovascular Accident: Yes Hx Seizures: No (denies) Hx Transient Ischemic Attacks (TIA): Yes - HEENT Hx HEENT Problems: No - RENAL Hx Chronic Kidney Disease: No - ENDOCRINE/METABOLIC Hx Endocrine Disorders: No - HEMATOLOGICAL/ONCOLOGICAL Hx Blood Disorders: Yes Hx Anemia: Yes Hx Human Immunodeficiency Virus (HIV): No - INTEGUMENTARY Hx Dermatological Problems: No - MUSCULOSKELETAL/RHEUMATOLOGICAL Hx Musculoskeletal Disorders: Yes Hx Arthritis: Yes Hx Osteoporosis: Yes Hx Rheumatoid Arthritis: Yes - GASTROINTESTINAL Hx Gastrointestinal Disorders: Yes Hx Diverticulitis: Yes Hx Gastritis: Yes - GENITOURINARY/GYNECOLOGICAL Hx Genitourinary Disorders: Yes - PSYCHIATRIC Hx Psychophysiologic Disorder: Yes Hx Anxiety: Yes Hx Depression: Yes - SURGICAL HISTORY Hx Surgeries: Yes Hx Appendectomy: Yes Hx Cholecystectomy: No Hx Coronary Stent: Yes (Rex perez [facility]) - ANESTHESIA Hx Anesthesia: Yes Hx Anesthesia Reactions: No Hx Malignant Hyperthermia: No Meds Allergies/Adverse Reactions: Allergies Allergy/AdvReac Type Severity Reaction Status Date / Time No Known Allergies Allergy Verified 04/07/17 07:53 - Medications Medications: Current Medications Albuterol/Ipratropium (Duoneb 3 Mg/0.5 Mg (3 Ml) Ud) 3 ml INH RQ4 [facility] Last Admin: 05/11/17 15:50 Dose: 3 ml Alprazolam (Xanax) 0.5 mg PO HS [facility] Artificial Tears (Artificial Tears) 1 drop OD BID [facility] Last Admin: 05/11/17 08:30 Dose: 1 drop Clopidogrel Bisulfate (Plavix) 75 mg PO DAILY [facility] Last Admin: 05/11/17 08:32 Dose: 75 mg Enoxaparin Sodium (Lovenox) 40 mg SC DAILY [facility] PRN Reason: Protocol Last Admin: 05/11/17 08:31 Dose: 40 mg Escitalopram Oxalate (Lexapro) 5 mg PO HS [facility] Last Admin: 05/10/17 23:31 Dose: 5 mg Famotidine (Pepcid) 20 mg PO Q12 [facility] Last Admin: 05/11/17 08:32 Dose: 20 mg Folic Acid (Folic Acid) 1 mg PO DAILY [facility] Last Admin: 05/11/17 08:30 Dose: 1 mg Furosemide (Lasix) 20 mg IVP DAILY [facility] Last Admin: 05/11/17 08:31 Dose: 20 mg Home Med (Ropinirole [Requip]) 1 mg PO HS [facility] Hydroxychloroquine Sulfate (Plaquenil) 200 mg PO BID [facility] Last Admin: 05/11/17 08:32 Dose: 200 mg Hyoscyamine (Levsin) 0.125 mg PO HS PRN PRN Reason: Indigestion Metronidazole (Flagyl 500mg/100ml Ns) 100 mls @ 100 mls/hr IVPB Q8@0300,1100, 1900 [facility] PRN Reason: Protocol Last Admin: 05/11/17 10:49 Dose: 100 mls/hr Dextrose (Dextrose 5% In Water 1000 Ml) 1,000 mls @ 44 mls/hr IV .[id number] [facility] Stop: 05/12/17 05:59 Last Admin: 05/11/17 06:15 Dose: 44 mls/hr Methotrexate (Methotrexate) 2.5 mg PO QWK [facility] PRN Reason: Protocol Mirtazapine (Remeron) 30 mg PO HS [facility] Last Admin: 05/10/17 23:31 Dose: 30 mg Morphine Sulfate (Morphine) 2 mg IVP Q4 PRN PRN Reason: Pain, moderate (4-7) Ondansetron HCl (Zofran Inj) 4 mg IVP Q4 PRN PRN Reason: Nausea/Vomiting Oseltamivir Phosphate (Tamiflu Cap) 75 mg PO BID [facility] PRN Reason: Protocol Stop: 05/11/17 17:01 Last Admin: 05/11/17 08:32 Dose: 75 mg Prednisone (Prednisone Tab) 20 mg PO DAILY [facility] Last Admin: 05/11/17 08:32 Dose: 20 mg Physical Exam - Constitutional Appears: No Acute Distress - Head Exam Head Exam: NORMAL INSPECTION - Eye Exam Eye Exam: PERRL - ENT Exam ENT Exam: Normal Exam Additional comments: BIPAP in place - Neck Exam Neck exam: Positive for: Normal Inspection - Respiratory Exam Respiratory Exam: Decreased Breath Sounds, Rhonchi (scattered) - Cardiovascular Exam Cardiovascular Exam: REGULAR RHYTHM - GI/Abdominal Exam GI & Abdominal Exam: Normal Bowel Sounds, Soft, Tenderness (mild) - Extremities Exam Extremities exam: Positive for: normal inspection - Back Exam Back exam: NORMAL INSPECTION - Neurological Exam Neurological exam: Alert, CN II-XII Intact, Oriented x3 - Psychiatric Exam Psychiatric exam: Normal Affect, Normal Mood - Skin Skin Exam: Warm Results - Vital Signs Recent Vital Signs: Last Vital Signs Temp 97.4 F L 05/11/17 16:00 Pulse 66 05/11/17 16:00 Resp 18 05/11/17 16:00 BP 112/53 L 05/11/17 16:00 Pulse Ox 100 05/11/17 16:00 marlene Alvarez - Labs Result Diagrams: 05/11/17 04:50 05/11/17 04:50 Labs: Laboratory Results - last 24 hr 05/10/17 05/10/17 05/10/17 07:12 16:47 16:55 WBC RBC Hgb Hct MCV MCH MCHC RDW Plt Count MPV Neut % (Auto) Lymph % (Auto) Divide % (Auto) Eos % (Auto) Baso % (Auto) Neut # (Auto) Lymph # (Auto) Divide # (Auto) Eos # (Auto) Baso # (Auto) pCO2 pO2 HCO3 ABG pH ABG Total CO2 ABG O2 Saturation ABG O2 Content ABG Base Excess ABG Hemoglobin ABG Carboxyhemoglobin POC ABG HHb (Measured) ABG Methemoglobin ABG O2 Capacity Gio Test VBG pH VBG pCO2 VBG HCO3 VBG O2 Sat (Calc) VBG Base Excess A-a O2 Difference Hgb O2 Saturation Vent Mode Mechanical Rate FiO2 Inspiratory BiPAP Expiratory BiPAP Blood Gas Comments Crit Value Called To Crit Value Read Back Blood Gas Notified Time Sodium 145 Potassium 5.7 H Chloride 110 H Carbon Dioxide 22 Anion Gap 19 BUN 25 H Creatinine 1.0 Est GFR ( Amer) > 60 Est GFR (Non-Af Amer) 56 POC Glucose (mg/dL) 77 Random Glucose 87 Calcium 8.7 Total Bilirubin 2.0 H AST 73 H D ALT 38 Alkaline Phosphatase 164 H D Troponin I 0.0630 NT-Pro-B Natriuret Pep 4160 H Total Protein 6.8 Albumin 3.8 Globulin 3.0 Albumin/Globulin Ratio 1.2 Lipase 120 Urine Color Urine Clarity Urine pH Ur Specific [place] Urine Protein Urine Glucose (UA) Urine Ketones Urine Blood Urine Nitrate Urine Bilirubin Urine Urobilinogen Ur Leukocyte Esterase Urine RBC (Auto) Urine Microscopic WBC Ur Squamous Epith Cells Urine Bacteria Hyaline Casts 05/10/17 05/10/17 05/10/17 16:55 18:58 23:00 WBC 4.3 L RBC 3.26 L Hgb 9.6 L Hct 32.1 L MCV 98.5 MCH 29.5 MCHC 30.0 L RDW 23.8 H Plt Count 108 L MPV 10.6 Neut % (Auto) 67.4 Lymph % (Auto) 28.8 Divide % (Auto) 1.9 Eos % (Auto) 0.8 Baso % (Auto) 1.1 Neut # (Auto) 2.9 Lymph # (Auto) 1.2 Divide # (Auto) 0.1 Eos # (Auto) 0.0 Baso # (Auto) 0.0 pCO2 51 H pO2 171 H HCO3 23.1 ABG pH 7.29 L ABG Total CO2 26.1 ABG O2 Saturation 99.6 H ABG O2 Content 14.0 L ABG Base Excess -2.3 L ABG Hemoglobin 10.1 L ABG Carboxyhemoglobin 1.2 POC ABG HHb (Measured) 0.4 ABG Methemoglobin 2.6 ABG O2 Capacity 14.1 L Gio Test Yes VBG pH VBG pCO2 VBG HCO3 VBG O2 Sat (Calc) VBG Base Excess A-a O2 Difference 122.0 Hgb O2 Saturation 95.7 Vent Mode Mechanical Rate FiO2 50.0 Inspiratory BiPAP Expiratory BiPAP Blood Gas Comments Crit Value Called To Crit Value Read Back Blood Gas Notified Time Sodium Potassium Chloride Carbon Dioxide Anion Gap BUN Creatinine Est GFR ( Amer) Est GFR (Non-Af Amer) POC Glucose (mg/dL) Random Glucose Calcium Total Bilirubin AST ALT Alkaline Phosphatase Troponin I NT-Pro-B Natriuret Pep Total Protein Albumin Globulin Albumin/Globulin Ratio Lipase Urine Color Yellow Urine Clarity Clear Urine pH 6.0 Ur Specific [place] 1.009 Urine Protein 30 Urine Glucose (UA) Neg Urine Ketones Negative Urine Blood Negative Urine Nitrate Negative Urine Bilirubin Negative Urine Urobilinogen 0.2-1.0 Ur Leukocyte Esterase Neg Urine RBC (Auto) < 1 Urine Microscopic WBC 2 Ur Squamous Epith Cells 1 Urine Bacteria Rare Hyaline Casts 3-5 H 05/10/17 05/11/17 05/11/17 23:23 04:50 04:50 WBC 6.5 D RBC 3.00 L Hgb 9.0 L Hct 29.2 L MCV 97.4 MCH 30.1 MCHC 30.9 L RDW 23.4 H Plt Count 49 L D MPV 10.1 Neut % (Auto) 86.4 H Lymph % (Auto) 11.3 L Divide % (Auto) 1.7 Eos % (Auto) 0.2 Baso % (Auto) 0.4 Neut # (Auto) 5.6 Lymph # (Auto) 0.7 L Divide # (Auto) 0.1 Eos # (Auto) 0.0 Baso # (Auto) 0.0 pCO2 pO2 19 L HCO3 ABG pH ABG Total CO2 ABG O2 Saturation ABG O2 Content ABG Base Excess ABG Hemoglobin ABG Carboxyhemoglobin POC ABG HHb (Measured) ABG Methemoglobin ABG O2 Capacity Gio Test VBG pH 7.22 L VBG pCO2 73 H* VBG HCO3 23.0 VBG O2 Sat (Calc) 26.3 L VBG Base Excess 0.2 A-a O2 Difference Hgb O2 Saturation Vent Mode Mechanical Rate FiO2 Inspiratory BiPAP Expiratory BiPAP Blood Gas Comments 333 Crit Value Called To Bakari hunt md Crit Value Read Back Y Blood Gas Notified Time 2326 Sodium 147 Potassium 3.6 Chloride 107 Carbon Dioxide 27 Anion Gap 17 BUN 25 H Creatinine 1.0 Est GFR ( Amer) > 60 Est GFR (Non-Af Amer) 56 POC Glucose (mg/dL) Random Glucose 36 L* D Calcium 8.6 Total Bilirubin 1.0 AST 47 H D ALT 53 H D Alkaline Phosphatase 146 H Troponin I NT-Pro-B Natriuret Pep Total Protein 5.8 L Albumin 3.2 L Globulin 2.7 Albumin/Globulin Ratio 1.2 Lipase Urine Color Urine Clarity Urine pH Ur Specific [place] Urine Protein Urine Glucose (UA) Urine Ketones Urine Blood Urine Nitrate Urine Bilirubin Urine Urobilinogen Ur Leukocyte Esterase Urine RBC (Auto) Urine Microscopic WBC Ur Squamous Epith Cells Urine Bacteria Hyaline Casts 05/11/17 05/11/17 05:06 08:12 WBC RBC Hgb Hct MCV MCH MCHC RDW Plt Count MPV Neut % (Auto) Lymph % (Auto) Divide % (Auto) Eos % (Auto) Baso % (Auto) Neut # (Auto) Lymph # (Auto) Divide # (Auto) Eos # (Auto) Baso # (Auto) pCO2 58 H pO2 68 L HCO3 27.2 ABG pH 7.32 L ABG Total CO2 31.7 H ABG O2 Saturation 95.9 ABG O2 Content 12.2 L ABG Base Excess 3.0 ABG Hemoglobin 9.3 L ABG Carboxyhemoglobin 2.1 H POC ABG HHb (Measured) 4.0 ABG Methemoglobin 1.3 ABG O2 Capacity 12.7 L Gio Test Yes VBG pH VBG pCO2 VBG HCO3 VBG O2 Sat (Calc) VBG Base Excess A-a O2 Difference 145.0 Hgb O2 Saturation 92.6 L Vent Mode Bipap Mechanical Rate 18 FiO2 40.0 Inspiratory BiPAP 20 Expiratory BiPAP 9 Blood Gas Comments Crit Value Called To Crit Value Read Back Blood Gas Notified Time Sodium Potassium Chloride Carbon Dioxide Anion Gap BUN Creatinine Est GFR ( Amer) Est GFR (Non-Af Amer) POC Glucose (mg/dL) 97 Random Glucose Calcium Total Bilirubin AST ALT Alkaline Phosphatase Troponin I NT-Pro-B Natriuret Pep Total Protein Albumin Globulin Albumin/Globulin Ratio Lipase Urine Color Urine Clarity Urine pH Ur Specific [place] Urine Protein Urine Glucose (UA) Urine Ketones Urine Blood Urine Nitrate Urine Bilirubin Urine Urobilinogen Ur Leukocyte Esterase Urine RBC (Auto) Urine Microscopic WBC Ur Squamous Epith Cells Urine Bacteria Hyaline Casts reviewed J.P. - Imaging and Cardiology Chest x-ray Status: Report reviewed by me (Antonio) CT scan - abdomen Status: Report reviewed by me (Antonio) CT scan - pelvis Status: Report reviewed by me (Antonio) Assessment & Plan (1) Acute respiratory failure with hypoxia and hypercarbia Status: Acute Priority: High (2) COPD exacerbation Status: Chronic Priority: High (3) CHF (congestive heart failure) Status: Acute (4) Colitis Status: Acute (5) Pulmonary artery hypertension Status: Acute Priority: High (6) Influenza Status: Acute Priority: High (7) OLIVIA (obstructive sleep apnea) Status: Chronic - Assessment and Plan (Free Text) Plan: Pt had last dose of Tamiflu today, agree with BIPAP mask, FIO2 40%, continue Prednisone, Duoneb Lovenox and rest of Tx. - Date & Time Date: 05/11/17 Time: 14:00
--- NOTE | 2017-05-11 19:10 | CARD ---
APPROVED REPORT EKG Measurement Heart [id number] [id number] [id number] <Conclusion> Sinus bradycardia Nonspecific T wave abnormality Abnormal ECG
[2017-05-12] MEDS: metroNIDAZOLE 500mg/100ml NS 100 ML IVPB SCH ×2 (02:16→09:59)
[2017-05-12] MEDS: Albuterol-Ipratrop 3 mg / 0.5 (3 ml) UD INH SCH ×3 (04:05→11:20)
[2017-05-12 04:49] VITALS: RESP 18
[2017-05-12 06:55] LABS: BASO % 0.2 % (0.0-2.0); EOS % 0.1 % (0.0-4.0); HEMOGLOBIN 8.4 g/dL (12.0-16.0); LYMPH # 0.6 K/uL (1.0-4.3); MEAN CELL VOLUME 96.2 fl (81.0-99.0); MEAN CORPUSCULAR HEMOGLOBIN 30.9 pg (27.0-31.0); MEAN CORPUSCULAR HGB CONC 32.1 g/dL (33.0-37.0); MEAN PLATELET VOLUME 11.2 fl (7.2-11.7); MONO # 0.2 K/uL (0.0-0.8); MONO % 2.9 % (0.0-10.0); NEUT # 5.3 K/uL (1.8-7.0); NEUT % 86.8 % (50.0-75.0); RBC 2.7 Mil/uL (3.80-5.20); RED CELL DISTRIBUTION WIDTH 22.6 % (11.5-14.5); WHITE BLOOD COUNT 6.1 K/uL (4.8-10.8)
[2017-05-12 07:10] LABS: BLOOD UREA NITROGEN 28 mg/dl (7-17); CALCIUM 8.1 mg/dL (8.4-10.2); GFR AFRICAN-AMERICAN > 60; GFR NON-AFRICAN AMERICAN 56; MAGNESIUM 1.5 MG/DL (1.6-2.3)
[2017-05-12 07:11] LABS: NRBC % 1.7 % (0.0-0.0)
[2017-05-12 08:27] VITALS: O2SAT 98
[2017-05-12] MEDS: Artificial Tears Opht Soln OD SCH (09:53)
[2017-05-12] MEDS: Enoxaparin 40 mg Syringe SC SCH (09:54)
--- NOTE | 2017-05-12 10:31 | CP.PCM.DIS ---
Provider - Provider Date of Admission: 05/10/17 19:27 Attending physician: Eric Villegas Primary care physician: Dr. Albright Consults: pulmonary consult GI consult Time Spent in preparation of Discharge (in minutes): 15 Hospital Course - Lab Results Lab Results: Most Recent Lab Values WBC 6.1 K/uL (4.8-10.8) 05/12/17 06:15 RBC 2.70 Mil/uL (3.80-5.20) L 05/12/17 06:15 Hgb 8.4 g/dL (12.0-16.0) L 05/12/17 06:15 Hct 26.0 % (34.0-47.0) L 05/12/17 06:15 MCV 96.2 fl (81.0-99.0) 05/12/17 06:15 MCH 30.9 pg (27.0-31.0) 05/12/17 06:15 MCHC 32.1 g/dL (33.0-37.0) L 05/12/17 06:15 RDW 22.6 % (11.5-14.5) H 05/12/17 06:15 Plt Count 35 K/uL (130-400) L 05/12/17 06:15 MPV 11.2 fl (7.2-11.7) 05/12/17 06:15 Neut % (Auto) 86.8 % (50.0-75.0) H 05/12/17 06:15 Lymph % (Auto) 10.0 % (20.0-40.0) L 05/12/17 06:15 [place] % (Auto) 2.9 % (0.0-10.0) 05/12/17 06:15 Eos % (Auto) 0.1 % (0.0-4.0) 05/12/17 06:15 Baso % (Auto) 0.2 % (0.0-2.0) 05/12/17 06:15 Neut # (Auto) 5.3 K/uL (1.8-7.0) 05/12/17 06:15 Lymph # (Auto) 0.6 K/uL (1.0-4.3) L 05/12/17 06:15 [place] # (Auto) 0.2 K/uL (0.0-0.8) 05/12/17 06:15 Eos # (Auto) 0.0 K/uL (0.0-0.7) 05/12/17 06:15 Baso # (Auto) 0.0 K/uL (0.0-0.2) 05/12/17 06:15 pCO2 58 mm/Hg (35-45) H 05/11/17 05:06 pO2 68 mm/Hg (80-100) L 05/11/17 05:06 HCO3 27.2 mmol/L (21-28) 05/11/17 05:06 ABG pH 7.32 (7.35-7.45) L 05/11/17 05:06 ABG Total CO2 31.7 mmol/L (22-28) H 05/11/17 05:06 ABG O2 Saturation 95.9 % (95-98) 05/11/17 05:06 ABG O2 Content 12.2 ML/dL (15-23) L 05/11/17 05:06 ABG Base Excess 3.0 mmol/L (-2.0-3.0) 05/11/17 05:06 ABG Hemoglobin 9.3 g/dL (11.7-17.4) L 05/11/17 05:06 ABG Carboxyhemoglobin 2.1 % (0.5-1.5) H 05/11/17 05:06 POC ABG HHb (Measured) 4.0 % (0.0-5.0) 05/11/17 05:06 ABG Methemoglobin 1.3 % (0.0-3.0) 05/11/17 05:06 ABG O2 Capacity 12.7 mL/dL (16-24) L 05/11/17 05:06 Gio Test Yes 05/11/17 05:06 VBG pH 7.22 (7.32-7.43) L 05/10/17 23:23 VBG pCO2 73 mmHg (40-60) H* 05/10/17 23:23 VBG HCO3 23.0 mmol/L 05/10/17 23:23 VBG O2 Sat (Calc) 26.3 % (40-65) L 05/10/17 23:23 VBG Base Excess 0.2 mmol/L (0.0-2.0) 05/10/17 23:23 A-a O2 Difference 145.0 mm/Hg 05/11/17 05:06 Hgb O2 Saturation 92.6 % (95.0-98.0) L 05/11/17 05:06 Vent Mode Bipap 05/11/17 05:06 Mechanical Rate 18 05/11/17 05:06 FiO2 40.0 % 05/11/17 05:06 Inspiratory BiPAP 20 05/11/17 05:06 Expiratory BiPAP 9 05/11/17 05:06 Blood Gas Comments 333 05/10/17 23:23 Crit Value Called To Bakari hunt md 05/10/17 23:23 Crit Value Read Back Y 05/10/17 23:23 Blood Gas Notified Time 2326 05/10/17 23:23 Sodium 143 mmol/l (132-148) 05/12/17 06:15 Potassium 3.7 MMOL/L (3.6-5.0) 05/12/17 06:15 Chloride 105 mmol/L (98-107) 05/12/17 06:15 Carbon Dioxide 28 mmol/L (22-30) 05/12/17 06:15 Anion Gap 14 (10-20) 05/12/17 06:15 BUN 28 mg/dl (7-17) H 05/12/17 06:15 Creatinine 1.0 mg/dl (0.7-1.2) 05/12/17 06:15 Est GFR ( Amer) > 60 05/12/17 06:15 Est GFR (Non-Af Amer) 56 05/12/17 06:15 POC Glucose (mg/dL) 184 mg/dL (65-110) H 05/11/17 21:09 Random Glucose 102 mg/dL (65-105) 05/12/17 06:15 Calcium 8.1 mg/dL (8.4-10.2) L 05/12/17 06:15 Phosphorus 4.3 mg/dl (2.5-4.5) 05/12/17 06:15 Magnesium 1.5 MG/DL (1.6-2.3) L 05/12/17 06:15 Total Bilirubin 1.0 mg/dl (0.2-1.3) 05/11/17 04:50 AST 47 U/L (14-36) H D 05/11/17 04:50 ALT 53 U/L (9-52) H D 05/11/17 04:50 Alkaline Phosphatase 146 U/L (38-126) H 05/11/17 04:50 Troponin I 0.0630 ng/mL (0.00-0.120) 05/10/17 16:55 NT-Pro-B Natriuret Pep 4160 pg/ml (0-900) H 05/10/17 16:55 Total Protein 5.8 G/DL (6.3-8.2) L 05/11/17 04:50 Albumin 3.2 g/dL (3.5-5.0) L 05/11/17 04:50 Globulin 2.7 gm/dL (2.2-3.9) 05/11/17 04:50 Albumin/Globulin Ratio 1.2 (1.0-2.1) 05/11/17 04:50 Lipase 120 U/L (23-300) 05/10/17 07:12 Urine Color Yellow (YELLOW) 05/10/17 23:00 Urine Clarity Clear (Clear) 05/10/17 23:00 Urine pH 6.0 (5.0-8.0) 05/10/17 23:00 Ur Specific [place] 1.009 (1.003-1.030) 05/10/17 23:00 Urine Protein 30 mg/dL (NEGATIVE) 05/10/17 23:00 Urine Glucose (UA) Neg mg/dL (Normal) 05/10/17 23:00 Urine Ketones Negative mg/dL (NEGATIVE) 05/10/17 23:00 Urine Blood Negative (NEGATIVE) 05/10/17 23:00 Urine Nitrate Negative (NEGATIVE) 05/10/17 23:00 Urine Bilirubin Negative (NEGATIVE) 05/10/17 23:00 Urine Urobilinogen 0.2-1.0 mg/dL (0.2-1.0) 05/10/17 23:00 Ur Leukocyte Esterase Neg [place]/uL (Negative) 05/10/17 23:00 Urine RBC (Auto) < 1 /hpf (0-3) 05/10/17 23:00 Urine Microscopic WBC 2 /hpf (0-5) 05/10/17 23:00 Ur Squamous Epith Cells 1 /hpf (0-5) 05/10/17 23:00 Urine Bacteria Rare (<OCC) 05/10/17 23:00 Hyaline Casts 3-5 /hpf (0-2) H 05/10/17 23:00 - Hospital Course Hospital Course: 61 years old female with hx of Pulmonary Artery Hypertension, Sleep Apnea on CPAP, Asthma/ COPD on Home oxygen and CVA who was last admitted on 04/07/17 and diagnosed with Acute CHF and Cor pulmonale, now comes on 05/10/2017 with one week being dx with the flu on Tamiflu, and 3 days of Diarrhea, abdominal pain , not eating, weakness, SOB , poor ability to Ambulat. patient was diagnosed with acute on chronic hypercarbic respiratory failure acute on chronic CHF and acute colitis. She was admitted initially in ICU , placed on BIPAP , started on Solumedrol IV, Duonebs and lasix. Tamiflu was continued for 2 more days to finish her treatment for influenza that was started as outpatient by her PMD. Ct abdomen showed colitis and she was satrted on Flagyl with improvement of her symptoms At present patient is hemodynamically stable, afebrile,abdominal pain has resolved, last diarrhea was 2 days ago , tolerating po intake Her respiratory status improved and now back to baseline , off BIPAP saturating 98 % on 2 L O2 via NC. Will discharge patient home.Follow upw ith PMD Dr. Albright 1.Acute on Chronic Hypercarbic respiratory failure due to CHF and COPD BIPAP now discontinued; saturating well on nasal cannula Consult Dr Thomas pulmonary appreciated Received lasix , solumedrol , Duonebs will d/c on Po lasix and prednisone Continue home O2 and CPAP 2.Acute on chronic CHF, secondary to pulmonary hypertension Lasix 60 mg IV given in ED; continue 20 mg daily Hold Metoprolol because of Bradycardia 3. Acute Colitis, with diarrhea and abdominal pains diarrhea resolved , abdominal pain resolved on Flagyl. Will d/c on Po for 5 days 4. Hyperkalemia resolved 5. Influenza was diagnosed as outpatient and started on Tamiflu Finished 2 more days of Tamiflu 6. Anemia, thromocytopenia chronic history of splenectomy 7. Obesity BMI 39 chronic , stable 8. History of DVT s/p IVC filter 9. CAD s/p PCI on ASA, statin, plavix 10. History of GI bleed 11.Rheumatoid Arthritis, SLE continue folic acid, Levsin, Methotrexate, prednisone 12.Depression and Anxiety continue Xanax 0.5 mg HS continue Lexapro, Remeron, Requip 13.Constipation continue Naloxegol and Docusate 9). Code Status: DNR/DNI a Discharge Exam - Head Exam Head Exam: NORMAL INSPECTION Additional comments: obese - Eye Exam Eye Exam: EOMI, PERRL Pupil Exam: NORMAL ACCOMODATION - ENT Exam ENT Exam: Mucous Membranes Moist, Normal Exam - Neck Exam Neck exam: Full Rom - Respiratory Exam Respiratory Exam: Clear to PA & Lateral, Prolonged Expiratory Phase. absent: Wheezes, Respiratory Distress - Cardiovascular Exam Cardiovascular Exam: REGULAR RHYTHM, RRR, +S1, +S2. absent: JVD - GI/Abdominal Exam GI & Abdominal Exam: Normal Bowel Sounds, Soft. absent: Distended, Guarding, Rebound, Tenderness - Rectal Exam Rectal Exam: Deferred - Extremities Exam Extremities exam: normal capillary refill, normal inspection, pedal pulses present - Back Exam Back exam: NORMAL INSPECTION - Neurological Exam Neurological exam: Alert, CN II-XII Intact, Oriented x3 - Psychiatric Exam Psychiatric exam: Normal Affect - Skin Skin Exam: Dry, Pallor, Warm Discharge Plan - Follow Up Plan Condition: STABLE Disposition: HOME/ ROUTINE Patient education suggested?: Yes Referrals: Deniz Albright MD [Family Provider] -
[2017-05-12 11:46] LABS: ABG ALLEN TEST YES; ARTERIAL BLOOD GAS HCO3 27.5 mmol/L (21-28); ARTERIAL BLOOD GAS HEMOGLOBIN 8.8 g/dL (11.7-17.4); ARTERIAL BLOOD GAS O2 CAPACITY 12.2 mL/dL (16-24); ARTERIAL BLOOD GAS O2 CONTENT 12.2 ML/dL (15-23); ARTERIAL BLOOD GAS O2 SAT 99.9 % (95-98); ARTERIAL BLOOD GAS PCO2 49 mm/Hg (35-45); ARTERIAL BLOOD GAS PH 7.38 (7.35-7.45); ARTERIAL BLOOD GAS PO2 89 mm/Hg (80-100); ARTERIAL BLOOD GAS TCO2 30.5 mmol/L (22-28)
[2017-05-12 12:29] VITALS: BP 123/62; PULSE 79; TEMP 97.7
== END 2017-05-12 14:01 | disposition home or self-care (01) | DRG 541 ==
LOC: H.ER 15:54 → H.ERHOLD 19:27 → H.ICU/CCU 23:36 → H.TEL 05-12 00:05
PROVIDERS: ADMIT Internal Medicine; ATTEND Internal Medicine
PROC: 5A09457 Assistance with Respiratory Ventilation, 24-96 Consecutive Hours, Continuous Positive Airway Pressure (ICD-10-PCS; principal; 2017-05-10)
PROC: 3E0F7GC Introduction of Other Therapeutic Substance into Respiratory Tract, Via Natural or Artificial Opening (ICD-10-PCS; 2017-05-10)
DX: J96.21 Acute and chronic respiratory failure with hypoxia (principal); I50.33 Acute on chronic diastolic (congestive) heart failure; I27.21 Secondary pulmonary arterial hypertension; E87.5 Hyperkalemia; I08.1 Rheumatic disorders of both mitral and tricuspid valves; J84.10 Pulmonary fibrosis, unspecified; J44.1 Chronic obstructive pulmonary disease with (acute) exacerbation; I11.0 Hypertensive heart disease with heart failure; J98.11 Atelectasis; J96.22 Acute and chronic respiratory failure with hypercapnia; I27.81 Cor pulmonale (chronic); J11.1 Influenza due to unidentified influenza virus with other respiratory manifestations; I25.10 Atherosclerotic heart disease of native coronary artery without angina pectoris; E16.2 Hypoglycemia, unspecified; Z68.39 Body mass index [BMI] 39.0-39.9, adult; E66.9 Obesity, unspecified; E78.5 Hyperlipidemia, unspecified; E78.00 Pure hypercholesterolemia, unspecified; I69.351 Hemiplegia and hemiparesis following cerebral infarction affecting right dominant side; F32.9 Major depressive disorder, single episode, unspecified; F41.9 Anxiety disorder, unspecified; G47.33 Obstructive sleep apnea (adult) (pediatric); D63.8 Anemia in other chronic diseases classified elsewhere; K52.9 Noninfective gastroenteritis and colitis, unspecified; K59.00 Constipation, unspecified; M06.9 Rheumatoid arthritis, unspecified; G89.29 Other chronic pain; M81.0 Age-related osteoporosis without current pathological fracture; Z66 Do not resuscitate; Z99.81 Dependence on supplemental oxygen; Z79.02 Long term (current) use of antithrombotics/antiplatelets; Z86.718 Personal history of other venous thrombosis and embolism; Z95.5 Presence of coronary angioplasty implant and graft; Z90.81 Acquired absence of spleen

== ENCOUNTER 2017-05-26 10:12 | Inpatient (IN) | payer MEDICAID ==
[2017-05-26 10:18] VITALS: BMI 39.6
[2017-05-26] MEDS ORDERED: Sodium Chloride 0.9% 500 ML IV STA (10:25)
[2017-05-26] MEDS ORDERED: Albuterol-Ipratrop 3 mg / 0.5 (3 ml) UD INH STA ×2 (10:25→10:28)
[2017-05-26] MEDS ORDERED: Albuterol-Ipratrop 3 mg / 0.5 (3 ml) UD IH STA (10:25)
--- NOTE | 2017-05-26 10:33 | ED PDOC ---
HPI: SOB/CHF/COPD Time Seen by Provider: 05/26/17 10:25 Chief Complaint (Provider): dyspnea History Per: Patient, EMS, Family History/Exam Limitations: no limitations Onset/Duration Of Symptoms: Days (3 days) Additional Complaint(s): Pt. with dyspnea, cough, congestion, runny nose nausea, vomit, diarrhea nonbloody for 3 days. Had same and admitted/dc from here 2 weeks ago. Was doing better and then symptoms returned. No chest pain, numbness, tingles. Has weakness all over. No abd pain. Was found having difficulty breathing so cpap put on. On prednisone. Past Medical History Vital Signs: Last Vital Signs Temp 97.6 F 05/26/17 10:17 Pulse 50 L 05/26/17 11:44 Resp 20 05/26/17 11:44 BP 129/72 05/26/17 11:44 Pulse Ox 96 05/26/17 11:44 - Medical History PMH: Anemia, Anxiety, Arthritis, Asthma, Back Problems (chronic back pain), CAD , CHF, COPD, CVA (x3), Depression, Diverticulitis, Gastritis, HTN, Hypercholesterolemia, Osteoporosis, Peripheral Edema, Rheumatoid Arthritis, Sleep Apnea, TIA Denies: HIV, Chronic Kidney Disease, Seizures (denies) - Surgical History Surgical History: Appendectomy, Coronary Stent ([facility] [place]), (x2) Denies: Cholecystectomy - Family History Family History: States: Unknown Family Hx - Living Arrangements Living Arrangements: With Family - Social History Alcohol: None Drugs: Denies - Immunization History Hx Influenza Vaccination: Yes - Home Medications Home Medications: Ambulatory Orders Medication Instructions Recorded Alprazolam [Xanax] 0.5 mg PO HS 11/14/16 Meloxicam [Mobic] 7.5 mg PO HS 03/25/17 Polyethylene Glycol/Polyvinyl 1 drop OP BID 03/25/17 [Artificial Tears] Albuterol/Ipratropium [Duoneb 3 3 ml INH RQ4 #30 neb 04/08/17 mg/0.5 mg (3 ml) UD] Clopidogrel [Plavix] 75 mg PO DAILY #30 tab 04/08/17 Docusate Sodium [Stool Softener] 100 mg PO DAILY PRN #30 tablet 04/08/17 Escitalopram [Lexapro] 5 mg PO HS #30 tab 04/08/17 Folic Acid 1 mg PO DAILY #30 tab 04/08/17 Furosemide [Lasix] 20 mg PO QOTHERDAY #30 tablet 04/08/17 Hydroxychloroquine Sulfate 200 mg PO BID #60 tablet 04/08/17 [Plaquenil] Hyoscyamine [Levsin] 1 tab PO HS PRN #30 tab 04/08/17 Methotrexate 2.5 mg PO QWK #4 tab 04/08/17 Mirtazapine [Remeron] 30 mg PO HS #30 tab 04/08/17 Naloxegol Oxalate [Movantik] 25 mg PO DAILY #15 tablet 04/08/17 Pantoprazole Sodium [Protonix] 40 mg PO DAILY #30 tablet. 04/08/17 Prednisone [Deltasone] 20 mg PO DAILY #4 tablet 04/08/17 Ranitidine HCl [Zantac] 150 mg PO DAILY #30 tablet 04/08/17 Tetrahydrz/Dext 70/Peg 400/Pvp [Hm 1 drop OP BID #30 drops 04/08/17 Eye Drops Advanced Relief] rOPINIRole [Requip] 1 mg PO HS #30 tab 04/08/17 Famotidine [Pepcid] 20 mg PO Q12 #20 tab 05/05/17 Ondansetron [Zofran Tab] 4 mg PO Q8H #10 tab 05/05/17 Metronidazole [Flagyl] 500 mg PO DAILY #5 tab 05/12/17 - Allergies Allergies/Adverse Reactions: Allergies Allergy/AdvReac Type Severity Reaction Status Date / Time No Known Allergies Allergy Verified 04/07/17 07:53 Review of Systems ROS Statement: Except As Marked, All Systems Reviewed And Found Negative Constitutional: Positive for: Weakness ENT: Positive for: Nose Congestion Respiratory: Positive for: Cough, Shortness of Breath, Wheezing Gastrointestinal: Positive for: Nausea, Vomiting, Diarrhea Neurological: Positive for: Weakness Physical Exam - Reviewed Nursing Documentation Reviewed: Yes Vital Signs Reviewed: Yes - Physical Exam Appears: Positive for: Uncomfortable Head Exam: Positive for: ATRAUMATIC, NORMAL INSPECTION, NORMOCEPHALIC Skin: Positive for: Normal Color, Warm, DRY Eye Exam: Positive for: EOMI, Normal appearance, PERRL ENT: Positive for: Nasal Congestion Neck: Positive for: Normal, Painless ROM, Supple Cardiovascular/Chest: Positive for: Regular Rate, Rhythm. Negative for: Edema Respiratory: Positive for: Decreased Breath Sounds (b/l with coarse sound b/l). Negative for: Accessory Muscle Use (on bipap), Respiratory Distress Gastrointestinal/Abdominal: Positive for: Normal Exam, Bowel Sounds, Soft. Negative for: Tenderness Back: Positive for: Normal Inspection. Negative for: L CVA Tenderness, R CVA Tenderness Extremity: Positive for: Normal ROM. Negative for: Tenderness, Pedal Edema Neurologic/Psych: Positive for: Alert, Oriented, Motor/Sensory Deficits (4/5 all extremities) - Laboratory Results Result Diagrams: 05/26/17 10:05 05/26/17 10:05 Interpretation Of Abn Labs: 4790 probnp - ECG ECG: Positive for: Interpreted By Me, Viewed By Me ECG Rhythm: Positive for: Normal QRS, Sinus Rhythm, Nonspecific Changes O2 Sat by Pulse Oximetry: 100 Pulse Ox Interpretation: Normal (on bipap) - Radiology X-Ray: Read By Radiologist X-Ray Interpretation: No Acute Disease - Progress ED Course And Treament: 1034: Pt. feels much better with bipap. Speaking in sentences. Continue bipap. 1250: Stable. Removed bipap. Breathing better. Spoke with Dr. Marino. Will admit obs tele. - Critical Care Total Time (In Min): 30 Documented Critical Care: Time excludes all time spent performint seperately billable procedures Disposition - Clinical Impression Clinical Impression: Acute exacerbation of CHF (congestive heart failure), COPD exacerbation - Patient ED Disposition Is Patient to be Admitted: Yes Counseled Patient/Family Regarding: Diagnosis - Disposition Disposition Time: 13:06 Condition: FAIR - Pt Status Changed To: Hospital Disposition Of: Observation - POA Present On Arrival: None
[2017-05-26 10:49] LABS: ABG ALLEN TEST YES; ARTERIAL BLOOD GAS HCO3 24.8 mmol/L (21-28); ARTERIAL BLOOD GAS O2 SAT 100.8 % (95-98); ARTERIAL BLOOD GAS PCO2 35 mm/Hg (35-45); ARTERIAL BLOOD GAS PH 7.44 (7.35-7.45); ARTERIAL BLOOD GAS PO2 96 mm/Hg (80-100); ARTERIAL BLOOD GAS TCO2 24.9 mmol/L (22-28)
[2017-05-26] MEDS ORDERED: Albuterol-Ipratrop 3 mg / 0.5 (3 ml) UD ONE ×2 (11:10→11:11)
--- NOTE | 2017-05-26 11:48 | RAD ---
HISTORY: Sepsis Patient COMPARISON: Comparison made with chest radiograph 05/10/2017. TheNo prior. FINDINGS: LUNGS: Poor inspiration with low lung volumes, crowded bronchovascular markings. Bibasilar atelectasis and possible bilateral effusions. PLEURA: As above. No pneumothorax apparent. CARDIOVASCULAR: Cardiomegaly. OSSEOUS STRUCTURES: No significant abnormalities. VISUALIZED UPPER ABDOMEN: Normal. OTHER FINDINGS: None. IMPRESSION: Poor inspiration with low lung volumes, crowded bronchovascular markings. Bibasilar atelectasis and possible bilateral effusions.
[2017-05-26 12:14] LABS: BASO # 0.1 K/uL (0.0-0.2); BASO % 1.2 % (0.0-2.0); EOS # 0.1 K/uL (0.0-0.7); EOS % 1.3 % (0.0-4.0); HEMOGLOBIN 10.3 g/dL (12.0-16.0); LYMPH % 21.9 % (20.0-40.0); MEAN CELL VOLUME 102.6 fl (81.0-99.0); MEAN CORPUSCULAR HEMOGLOBIN 31.3 pg (27.0-31.0); MEAN CORPUSCULAR HGB CONC 30.5 g/dL (33.0-37.0); MEAN PLATELET VOLUME 11.3 fl (7.2-11.7); MONO # 1.4 K/uL (0.0-0.8); MONO % 29.5 % (0.0-10.0); NEUT # 2.2 K/uL (1.8-7.0); NEUT % 46.1 % (50.0-75.0); RBC 3.29 Mil/uL (3.80-5.20); RED CELL DISTRIBUTION WIDTH 26.6 % (11.5-14.5); WHITE BLOOD COUNT 4.7 K/uL (4.8-10.8)
[2017-05-26 12:18] LABS: ALB/GLOB RATIO 1.2 (1.0-2.1); ALBUMIN 3.6 g/dL (3.5-5.0); ALT/SGPT 69 U/L (9-52); AST/SGOT 39 U/L (14-36); BLOOD UREA NITROGEN 21 mg/dl (7-17); CALCIUM 9.4 mg/dL (8.4-10.2); GFR AFRICAN-AMERICAN > 60; GFR NON-AFRICAN AMERICAN 56; MAGNESIUM 1.6 MG/DL (1.6-2.3)
[2017-05-26 12:25] LABS: PLATELET COUNT 136 K/uL (130-400)
[2017-05-26 12:27] LABS: B-TYPE NATRIURETIC PEPTIDE 4790 pg/ml (0-900)
[2017-05-26 13:04] LABS: EOSINOPHIL 2 % (0-7); LYMPHOCYTE 26 % (20-50); MONOCYTE 30 % (0-10); NEUTROPHIL 42 % (42-75); NUCLEATED RED BLOOD CELL 20 % (0-0); TOTAL CELLS COUNTED 100
[2017-05-26 13:05] LABS: ANISOCYTOSIS MARKED; PLATELET ESTIMATE NORMAL (NORMAL)
[2017-05-26 13:06] LABS: HYPOCHROMIC MODERATE; TARGET CELLS SLIGHT
[2017-05-26 13:07] LABS: OVALOCYTES SLIGHT; SCHISTOCYTES SLIGHT; TEARDROP CELLS SLIGHT
--- NOTE | 2017-05-26 13:32 | CP.PCM.HP ---
History of Present Illness - History of Present Illness History of Present Illness: 61 yo female with history of SLE, Pulmonary HTN, COPD with home oxygen, CAD and CVA recently discharged 2 weeks ago came back because of bouts of diarrhea associated with nausea and abdominal pain since 3 days ago. Patient also complained of itchy eyes and nasal congestion and coughing. Present on Admission - Present on Admission Any Indicators Present on Admission: No History of DVT/PE: No History of Uncontrolled Diabetes: No Urinary Catheter: No Decubitus Ulcer Present: No Review of Systems - Review of Systems All systems: reviewed and no additional remarkable complaints except (aside from those mentioned above, 14 point system review were negative by me) Past Patient History - Infectious Disease Hx of Infectious Diseases: None - Tetanus Immunizations Tetanus Immunization: Unknown - Past Medical History & Family History Past Medical History?: Yes - Past Social History Smoking Status: Never Smoked Alcohol: None Drugs: Denies Home Situation {Lives}: With Family - CARDIAC Hx Congestive Heart Failure: Yes Hx Hypercholesterolemia: Yes Hx Hypertension: Yes Hx Peripheral Edema: Yes - PULMONARY Hx Asthma: Yes Hx Chronic Obstructive Pulmonary Disease (COPD): Yes Hx Sleep Apnea: Yes - NEUROLOGICAL Hx Seizures: No (denies) Hx Transient Ischemic Attacks (TIA): Yes - HEENT Hx HEENT Problems: No - RENAL Hx Chronic Kidney Disease: No - ENDOCRINE/METABOLIC Hx Endocrine Disorders: No - HEMATOLOGICAL/ONCOLOGICAL Hx Anemia: Yes Hx Human Immunodeficiency Virus (HIV): No - INTEGUMENTARY Hx Dermatological Problems: No - MUSCULOSKELETAL/RHEUMATOLOGICAL Hx Arthritis: Yes Hx Osteoporosis: Yes Hx Rheumatoid Arthritis: Yes - GASTROINTESTINAL Hx Diverticulitis: Yes Hx Gastritis: Yes - GENITOURINARY/GYNECOLOGICAL Hx Genitourinary Disorders: Yes - PSYCHIATRIC Hx Anxiety: Yes Hx Depression: Yes - SURGICAL HISTORY Hx Appendectomy: Yes Hx Cholecystectomy: No Hx Coronary Stent: Yes ([facility] [place]) - ANESTHESIA Hx Anesthesia: Yes Hx Anesthesia Reactions: No Hx Malignant Hyperthermia: No Meds Allergies/Adverse Reactions: Allergies Allergy/AdvReac Type Severity Reaction Status Date / Time No Known Allergies Allergy Verified 04/07/17 07:53 Physical Exam - Constitutional Appears: No Acute Distress, Chronically Ill - Head Exam Head Exam: ATRAUMATIC - Eye Exam Eye Exam: absent: Scleral icterus - ENT Exam ENT Exam: Mucous Membranes Moist - Neck Exam Neck exam: Negative for: Meningismus - Respiratory Exam Respiratory Exam: absent: Rhonchi, Wheezes, Respiratory Distress - Cardiovascular Exam Cardiovascular Exam: REGULAR RHYTHM, +S1, +S2 - GI/Abdominal Exam GI & Abdominal Exam: Soft. absent: Tenderness - Rectal Exam Rectal Exam: Deferred - Extremities Exam Extremities exam: Negative for: pedal edema - Neurological Exam Neurological exam: Alert, Oriented x3 - Psychiatric Exam Psychiatric exam: Normal Affect - Skin Skin Exam: Dry, Intact Results - Vital Signs Recent Vital Signs: Last Vital Signs Temp 97.6 F 05/26/17 10:17 Pulse 50 L 05/26/17 11:44 Resp 20 05/26/17 11:44 BP 129/72 05/26/17 11:44 Pulse Ox 100 05/26/17 13:06 - Labs Result Diagrams: 05/26/17 10:05 05/26/17 10:05 Labs: Laboratory Results - last 24 hr 05/26/17 05/26/17 05/26/17 10:05 10:05 10:37 WBC 4.7 L RBC 3.29 L Hgb 10.3 L Hct 33.8 L MCV 102.6 H D MCH 31.3 H MCHC 30.5 L RDW 26.6 H Plt Count 136 D MPV 11.3 Neut % (Auto) 46.1 L Lymph % (Auto) 21.9 [place] % (Auto) 29.5 H Eos % (Auto) 1.3 Baso % (Auto) 1.2 Neut # (Auto) 2.2 Lymph # (Auto) 1.0 [place] # (Auto) 1.4 H Eos # (Auto) 0.1 Baso # (Auto) 0.1 Neutrophils % (Manual) 42 Lymphocytes % (Manual) 26 Monocytes % (Manual) 30 H Eosinophils % (Manual) 2 Nucleated RBC % 20 H Platelet Estimate Normal Hypochromasia (manual) Moderate Basophilic Stippling Slight Anisocytosis (manual) Marked Macrocytosis (manual) Moderate Target Cells Slight Tear Drop Cells Slight Ovalocytes Slight Schistocytes Slight pCO2 35 pO2 96 HCO3 24.8 ABG pH 7.44 ABG Total CO2 24.9 ABG O2 Saturation 100.8 H ABG Base Excess -0.1 Gio Test Yes ABG Potassium 4.0 A-a O2 Difference 74.0 Glucose 118 H Lactate 1.1 Vent Mode Bipap Mechanical Rate 14 FiO2 30.0 Inspiratory BiPAP 12 Expiratory BiPAP 6 Sodium 149 H 141.0 Potassium 4.3 Chloride 109 H 115.0 H Carbon Dioxide 27 Anion Gap 17 BUN 21 H Creatinine 1.0 Est GFR ( Amer) > 60 Est GFR (Non-Af Amer) 56 Random Glucose 107 H Calcium 9.4 Phosphorus 3.6 Magnesium 1.6 Total Bilirubin 1.1 AST 39 H ALT 69 H D Alkaline Phosphatase 174 H Troponin I 0.0530 NT-Pro-B Natriuret Pep 4790 H Total Protein 6.7 Albumin 3.6 Globulin 3.1 Albumin/Globulin Ratio 1.2 Arterial Blood Potassium 4.0 Assessment & Plan - Assessment and Plan (Free Text) Assessment: 61 yo female with history of SLE, Pulmonary HTN, COPD with home oxygen, CAD and CVA recently discharged 2 weeks ago came back because of bouts of diarrhea associated with nausea and abdominal pain since 3 days ago. Patient also complained of itchy eyes and nasal congestion and coughing. 1. Dehydration secondary to diarrhea and poor oral intake secondary to anorexia start IV hydration stool for C diff 2. Allergic Reaction Claritin 1 tab PO daily 3. COPD Duoneb q 4hrs prn for wheezing or SOB 4. CAD denied chest pain or SOB continue ASA, BB and statin
[2017-05-26 13:42] LABS: INR 1.3 (0.9-1.2); PARTIAL THROMBOPLASTIN TIME 26.4 Seconds (25.6-37.1); PROTHROMBIN TIME 14.2 Seconds (9.8-13.1)
[2017-05-26 14:31] LABS: SQUAMOUS EPITHIAL 1 /hpf (0-5); URINE BACTERIA RARE (<OCC); URINE BILIRUBIN NEGATIVE (NEGATIVE); URINE BLOOD NEGATIVE (NEGATIVE); URINE CLARITY CLEAR (Clear); URINE COLOR YELLOW (YELLOW); URINE GLUCOSE (UA) NEG (Normal); URINE HYALINE CAST 0-2 /hpf (0-2); URINE LEUKOCYTE ESTERASE NEG Leu/uL (Negative); URINE NITRATE NEGATIVE (NEGATIVE); URINE PROTEIN NEGATIVE (NEGATIVE); URINE UROBILINOGEN 0.2-1.0 mg/dL (0.2-1.0)
[2017-05-26] MEDS: Sodium Chloride 0.9% 1,000 ML IV SCH (18:20)
[2017-05-27] MEDS: Sodium Chloride 0.9% 1,000 ML IV SCH (03:17)
[2017-05-27 06:31] LABS: BASO % 0.4 % (0.0-2.0); HEMOGLOBIN 9.7 g/dL (12.0-16.0); LYMPH # 0.5 K/uL (1.0-4.3); LYMPH % 11.1 % (20.0-40.0); MEAN CELL VOLUME 101.7 fl (81.0-99.0); MEAN CORPUSCULAR HEMOGLOBIN 30.8 pg (27.0-31.0); MEAN CORPUSCULAR HGB CONC 30.3 g/dL (33.0-37.0); MEAN PLATELET VOLUME 11.4 fl (7.2-11.7); MONO % 22.8 % (0.0-10.0); NEUT % 65.7 % (50.0-75.0); NRBC % 11.9 % (0.0-0.0); RBC 3.15 Mil/uL (3.80-5.20); RED CELL DISTRIBUTION WIDTH 26.7 % (11.5-14.5); WHITE BLOOD COUNT 4.5 K/uL (4.8-10.8)
[2017-05-27 06:37] LABS: BLOOD UREA NITROGEN 25 mg/dl (7-17); CALCIUM 8.7 mg/dL (8.4-10.2); GFR AFRICAN-AMERICAN > 60; GFR NON-AFRICAN AMERICAN 50
[2017-05-27] MEDS: Pantoprazole 40 mg EC Tab PO SCH (08:47)
[2017-05-27] MEDS: Enoxaparin 40 mg Syringe SC SCH (08:48)
[2017-05-27] MEDS ORDERED: Sod Polystyrene Sulf 15 gm/60 ml Susp PO ONE (09:24)
[2017-05-27] MEDS ORDERED: Albuterol 0.042% Inhal Sol (1.25 mg/3 mL) UD INH PRN (10:13)
[2017-05-27] MEDS ORDERED: [UNRECOGNIZED DRUG - OTHER] OP SCH (10:15)
[2017-05-27] MEDS ORDERED: methylPREDNISolone 40 MG in Sodium Chloride 0.9% 50 ML IVPB SCH (10:15)
[2017-05-27] MEDS ORDERED: Hyoscyamine 0.125 mg SL Tab PO PRN (10:15)
--- NOTE | 2017-05-27 10:24 | CP.PCM.PN ---
Subjective - Date & Time of Evaluation Date of Evaluation: 05/27/17 Time of Evaluation: 09:45 - Subjective Subjective: Patient seen and examined. Claimed she did not feel good today although her diarrhea and nausea were resolved. Complained she has problem breathing today. Objective - Vital Signs/Intake and Output Vital Signs (last 24 hours): Temp Pulse Resp BP Pulse Ox 97.4 F L 62 18 116/66 99 05/27/17 07:47 05/27/17 07:47 05/27/17 07:47 05/27/17 07:47 05/27/17 07:47 - Medications Medications: Current Medications Albuterol Sulfate (Albuterol 0.042% Inhal [place]us (1.25mg/3ml) Ud) 1.25 mg INH RQ4 PRN PRN Reason: Shortness of Breath Albuterol/Ipratropium (Duoneb 3 Mg/0.5 Mg (3 Ml) Ud) 3 ml INH RQID [place] Alprazolam (Xanax) 0.5 mg PO HS [facility] Artificial Tears (Artificial Tears) 1 drop OU BID [facility] Clopidogrel Bisulfate (Plavix) 75 mg PO DAILY [facility] Enoxaparin Sodium (Lovenox) 40 mg SC DAILY [facility] PRN Reason: Protocol Last Admin: 05/27/17 08:48 Dose: 40 mg Escitalopram Oxalate (Lexapro) 5 mg PO HS [facility] Folic Acid (Folic Acid) 1 mg PO DAILY [facility] Furosemide (Lasix) 20 mg PO QOTHERDAY [facility] Home Med (Docusate Sodium [Stool Softener]) 100 mg PO DAILY PRN PRN Reason: Constipation Home Med (Meloxicam [Mobic]) 7.5 mg PO HS [facility] Home Med (Ranitidine Hcl [Zantac]) 150 mg PO DAILY [facility] Home Med (Ropinirole [Requip]) 1 mg PO HS [facility] Home Med (Tetrahydrz/Dext 70/Peg 400/Pvp [Hm Eye Drops Advanced Relief]) 1 drop OP BID [place] Hydroxychloroquine Sulfate (Plaquenil) 200 mg PO BID [place] Hyoscyamine (Levsin) 1 mg PO HS PRN PRN Reason: Indigestion Sodium Chloride (Sodium Chloride 0.9%) 1,000 mls @ 80 mls/hr IV .[id number] [facility] Last Admin: 05/27/17 03:17 Dose: Not Given Methylprednisolone 40 mg/ (Sodium Chloride) 50 mls @ 100 mls/hr IVPB Q8 [place] Methotrexate (Methotrexate) 2.5 mg PO QWK [place] PRN Reason: Protocol Mirtazapine (Remeron) 30 mg PO HS [place] Ondansetron HCl (Zofran Inj) 4 mg IVP Q6 PRN PRN Reason: Nausea/Vomiting Pantoprazole Sodium (Protonix Ec Tab) 40 mg PO DAILY [place] Last Admin: 05/27/17 08:47 Dose: 40 mg - Labs Labs: 05/27/17 04:45 05/27/17 04:45 PT 14.2 Seconds (9.8-13.1) H 05/26/17 10:05 INR 1.3 (0.9-1.2) H 05/26/17 10:05 APTT 26.4 Seconds (25.6-37.1) 05/26/17 10:05 - Constitutional Appears: No Acute Distress - Head Exam Head Exam: ATRAUMATIC - Eye Exam Eye Exam: absent: Scleral icterus - ENT Exam ENT Exam: Mucous Membranes Moist - Neck Exam Neck Exam: absent: Meningismus - Respiratory Exam Respiratory Exam: Decreased Breath Sounds, Wheezes. absent: Rhonchi, Respiratory Distress - Cardiovascular Exam Cardiovascular Exam: REGULAR RHYTHM, +S1, +S2 - GI/Abdominal Exam GI & Abdominal Exam: Soft. absent: Tenderness - Rectal Exam Rectal Exam: Deferred - Neurological Exam Neurological Exam: Alert, Oriented x3 - Psychiatric Exam Psychiatric exam: Normal Affect - Skin Skin Exam: Dry, Intact Assessment and Plan - Assessment and Plan (Free Text) Assessment: 61 yo female with history of SLE, Pulmonary HTN, COPD/Asthma with home oxygen, CAD and CVA recently discharged 2 weeks ago came back because of bouts of diarrhea associated with nausea and abdominal pain since 3 days ago. Patient also complained of itchy eyes and nasal congestion and coughing. Her diarrhea, nausea and abdominal pain were resolved but now have SOB and wheezing. 1. COPD exacerbation Duoneb QID Albuterol via nebulizer q 4hrs prn SoluMedrol 40mg IVPB q 8hrs Lasix 40mg IV x 1 2. Dehydration improving DC IVF diarrhea resolved 3. Allergic Reaction Claritin 1 tab PO daily 4. CAD continue ASA, Plavix, BB and statin 5. SLE/RA on Hydroxychloroquine and Methotrexate continue Mobic
[2017-05-27] MEDS: Albuterol-Ipratrop 3 mg / 0.5 (3 ml) UD INH SCH ×3 (11:32→19:03)
[2017-05-27] MEDS: Artificial Tears Opht Soln OU SCH ×2 (11:55→17:45)
[2017-05-27] MEDS: MethylPREDNISolone 40 mg Vial IVP SCH ×2 (12:02→17:47)
[2017-05-28] MEDS: MethylPREDNISolone 40 mg Vial IVP SCH ×2 (00:20→09:19)
[2017-05-28 05:44] LABS: BLOOD UREA NITROGEN 32 mg/dl (7-17); CALCIUM 8.4 mg/dL (8.4-10.2); GFR AFRICAN-AMERICAN > 60; GFR NON-AFRICAN AMERICAN 50
[2017-05-28] MEDS: Albuterol-Ipratrop 3 mg / 0.5 (3 ml) UD INH SCH ×2 (07:53→11:41)
[2017-05-28 07:58] VITALS: RESP 18
[2017-05-28] MEDS: Artificial Tears Opht Soln OU SCH (09:16)
[2017-05-28] MEDS: Enoxaparin 40 mg Syringe SC SCH (09:17)
[2017-05-28] MEDS: Pantoprazole 40 mg EC Tab PO SCH (09:19)
--- NOTE | 2017-05-28 10:49 | CP.PCM.DIS ---
Provider - Provider Date of Admission: 05/27/17 10:21 Attending physician: Zackary Marino MD Time Spent in preparation of Discharge (in minutes): 25 Diagnosis - Discharge Diagnosis (1) COPD exacerbation Status: Acute Priority: High Comment: continue Duoneb and Prednisone at home. O2 supplement as needed (2) Dehydration Status: Acute Comment: resolved after IV hydration and after diarrhea stopped (3) CAD (coronary artery disease) Status: Chronic Comment: continue ASA, Plavix, BB and statin (4) SLE (systemic lupus erythematosus) Status: Chronic Priority: Medium Comment: continue Hydoxychloroquine and Prednisone Hospital Course - Lab Results Lab Results: Micro Results 05/26/17 14:20 Urine Urine Culture - Final Gram Negative Zoltan Gram Positive Cocci 05/26/17 10:25 Blood-Venous Blood Culture - Preliminary NO GROWTH AFTER 24 HOURS 05/26/17 11:05 Blood-Venous Blood Culture - Preliminary NO GROWTH AFTER 24 HOURS Most Recent Lab Values WBC 4.5 K/uL (4.8-10.8) L 05/27/17 04:45 RBC 3.15 Mil/uL (3.80-5.20) L 05/27/17 04:45 Hgb 9.7 g/dL (12.0-16.0) L 05/27/17 04:45 Hct 32.0 % (34.0-47.0) L 05/27/17 04:45 MCV 101.7 fl (81.0-99.0) H 05/27/17 04:45 MCH 30.8 pg (27.0-31.0) 05/27/17 04:45 MCHC 30.3 g/dL (33.0-37.0) L 05/27/17 04:45 RDW 26.7 % (11.5-14.5) H 05/27/17 04:45 Plt Count 146 K/uL (130-400) 05/27/17 04:45 MPV 11.4 fl (7.2-11.7) 05/27/17 04:45 Neut % (Auto) 65.7 % (50.0-75.0) 05/27/17 04:45 Lymph % (Auto) 11.1 % (20.0-40.0) L 05/27/17 04:45 [place] % (Auto) 22.8 % (0.0-10.0) H 05/27/17 04:45 Eos % (Auto) 0.0 % (0.0-4.0) 05/27/17 04:45 Baso % (Auto) 0.4 % (0.0-2.0) 05/27/17 04:45 Neut # (Auto) 3.0 K/uL (1.8-7.0) 05/27/17 04:45 Lymph # (Auto) 0.5 K/uL (1.0-4.3) L 05/27/17 04:45 [place] # (Auto) 1.0 K/uL (0.0-0.8) H 05/27/17 04:45 Eos # (Auto) 0.0 K/uL (0.0-0.7) 05/27/17 04:45 Baso # (Auto) 0.0 K/uL (0.0-0.2) 05/27/17 04:45 Neutrophils % (Manual) 42 % (42-75) 05/26/17 10:05 Lymphocytes % (Manual) 26 % (20-50) 05/26/17 10:05 Monocytes % (Manual) 30 % (0-10) H 05/26/17 10:05 Eosinophils % (Manual) 2 % (0-7) 05/26/17 10:05 Nucleated RBC % 20 % (0-0) H 05/26/17 10:05 Platelet Estimate Normal (NORMAL) 05/26/17 10:05 Hypochromasia (manual) Moderate 05/26/17 10:05 Basophilic Stippling Slight 05/26/17 10:05 Anisocytosis (manual) Marked 05/26/17 10:05 Macrocytosis (manual) Moderate 05/26/17 10:05 Target Cells Slight 05/26/17 10:05 Tear Drop Cells Slight 05/26/17 10:05 Ovalocytes Slight 05/26/17 10:05 Schistocytes Slight 05/26/17 10:05 PT 14.2 Seconds (9.8-13.1) H 05/26/17 10:05 INR 1.3 (0.9-1.2) H 05/26/17 10:05 APTT 26.4 Seconds (25.6-37.1) 05/26/17 10:05 pCO2 35 mm/Hg (35-45) 05/26/17 10:37 pO2 96 mm/Hg (80-100) 05/26/17 10:37 HCO3 24.8 mmol/L (21-28) 05/26/17 10:37 ABG pH 7.44 (7.35-7.45) 05/26/17 10:37 ABG Total CO2 24.9 mmol/L (22-28) 05/26/17 10:37 ABG O2 Saturation 100.8 % (95-98) H 05/26/17 10:37 ABG Base Excess -0.1 mmol/L (-2.0-3.0) 05/26/17 10:37 Gio Test Yes 05/26/17 10:37 ABG Potassium 4.0 mmol/L (3.6-5.2) 05/26/17 10:37 A-a O2 Difference 74.0 mm/Hg 05/26/17 10:37 Sodium 141.0 mmol/L (132-148) 05/26/17 10:37 Chloride 115.0 mmol/L (98-107) H 05/26/17 10:37 Glucose 118 mg/dL (65-105) H 05/26/17 10:37 Lactate 1.1 mmol/L (0.7-2.1) 05/26/17 10:37 Vent Mode Bipap 05/26/17 10:37 Mechanical Rate 14 05/26/17 10:37 FiO2 30.0 % 05/26/17 10:37 Inspiratory BiPAP 12 05/26/17 10:37 Expiratory BiPAP 6 05/26/17 10:37 Sodium 148 mmol/l (132-148) 05/28/17 04:25 Potassium 4.4 MMOL/L (3.6-5.0) 05/28/17 04:25 Chloride 105 mmol/L (98-107) 05/28/17 04:25 Carbon Dioxide 29 mmol/L (22-30) 05/28/17 04:25 Anion Gap 18 (10-20) 05/28/17 04:25 BUN 32 mg/dl (7-17) H 05/28/17 04:25 Creatinine 1.1 mg/dl (0.7-1.2) 05/28/17 04:25 Est GFR ( Amer) > 60 05/28/17 04:25 Est GFR (Non-Af Amer) 50 05/28/17 04:25 Random Glucose 162 mg/dL (65-105) H 05/28/17 04:25 Calcium 8.4 mg/dL (8.4-10.2) 05/28/17 04:25 Phosphorus 3.6 mg/dl (2.5-4.5) 05/26/17 10:05 Magnesium 1.6 MG/DL (1.6-2.3) 05/26/17 10:05 Total Bilirubin 1.1 mg/dl (0.2-1.3) 05/26/17 10:05 AST 39 U/L (14-36) H 05/26/17 10:05 ALT 69 U/L (9-52) H D 05/26/17 10:05 Alkaline Phosphatase 174 U/L (38-126) H 05/26/17 10:05 Troponin I 0.0530 ng/mL (0.00-0.120) 05/26/17 10:05 NT-Pro-B Natriuret Pep 4790 pg/ml (0-900) H 05/26/17 10:05 Total Protein 6.7 G/DL (6.3-8.2) 05/26/17 10:05 Albumin 3.6 g/dL (3.5-5.0) 05/26/17 10:05 Globulin 3.1 gm/dL (2.2-3.9) 05/26/17 10:05 Albumin/Globulin Ratio 1.2 (1.0-2.1) 05/26/17 10:05 Arterial Blood Potassium 4.0 mmol/L (3.6-5.2) 05/26/17 10:37 Urine Color Yellow (YELLOW) 05/26/17 14:20 Urine Clarity Clear (Clear) 05/26/17 14:20 Urine pH 6.0 (5.0-8.0) 05/26/17 14:20 Ur Specific [place] 1.009 (1.003-1.030) 05/26/17 14:20 Urine Protein Negative mg/dL (NEGATIVE) 05/26/17 14:20 Urine Glucose (UA) Neg mg/dL (Normal) 05/26/17 14:20 Urine Ketones Negative mg/dL (NEGATIVE) 05/26/17 14:20 Urine Blood Negative (NEGATIVE) 05/26/17 14:20 Urine Nitrate Negative (NEGATIVE) 05/26/17 14:20 Urine Bilirubin Negative (NEGATIVE) 05/26/17 14:20 Urine Urobilinogen 0.2-1.0 mg/dL (0.2-1.0) 05/26/17 14:20 Ur Leukocyte Esterase Neg [place]/uL (Negative) 05/26/17 14:20 Urine RBC (Auto) 1 /hpf (0-3) 05/26/17 14:20 Urine Microscopic WBC 1 /hpf (0-5) 05/26/17 14:20 Ur Squamous Epith Cells 1 /hpf (0-5) 05/26/17 14:20 Urine Bacteria Rare (<OCC) 05/26/17 14:20 Hyaline Casts 0-2 /hpf (0-2) 05/26/17 14:20 - Hospital Course Hospital Course: 61 yo female with history of SLE, Pulmonary HTN, COPD/Asthma with home oxygen, CAD and CVA recently discharged 2 weeks ago came back because of bouts of diarrhea associated with nausea and abdominal pain since 3 days ago. Patient also complained of itchy eyes and nasal congestion and coughing. Her diarrhea, nausea and abdominal pain were resolved but now have SOB and wheezing. After resuming parenteral steroid and bronchodilators patient's condition improved. Patient discharged in stable condition. Discharge Exam - Head Exam Head Exam: ATRAUMATIC - Eye Exam Eye Exam: absent: Scleral icterus - ENT Exam ENT Exam: Mucous Membranes Moist - Respiratory Exam Respiratory Exam: Decreased Breath Sounds. absent: Rhonchi, Wheezes, Respiratory Distress - Cardiovascular Exam Cardiovascular Exam: REGULAR RHYTHM, +S1, +S2 - GI/Abdominal Exam GI & Abdominal Exam: Soft. absent: Tenderness - Rectal Exam Rectal Exam: Deferred - Neurological Exam Neurological exam: Alert, Oriented x3 - Psychiatric Exam Psychiatric exam: Normal Affect - Skin Skin Exam: Dry, Intact Discharge Plan - Follow Up Plan Condition: FAIR Disposition: HOME/ ROUTINE
--- NOTE | 2017-05-28 12:18 | CARD ---
APPROVED REPORT EKG Measurement Heart [id number] <Conclusion> Sinus bradycardia Nonspecific T wave abnormality Abnormal ECG
[2017-05-28 12:49] VITALS: BP 116/67; PULSE 76; TEMP 98.3; O2SAT 98
== END 2017-05-28 13:20 | disposition home or self-care (01) | DRG 88 ==
LOC: H.ER 10:12 → H.ERHOLD 13:06 → H.TEL 15:32 → OBSVTOIN 05-27 10:21
PROC: 3E0F73Z Introduction of Anti-inflammatory into Respiratory Tract, Via Natural or Artificial Opening (ICD-10-PCS; principal; 2017-05-27)
PROC: 3E0F7GC Introduction of Other Therapeutic Substance into Respiratory Tract, Via Natural or Artificial Opening (ICD-10-PCS; 2017-05-27)
DX: J44.1 Chronic obstructive pulmonary disease with (acute) exacerbation (principal); I27.20 Pulmonary hypertension, unspecified; M32.9 Systemic lupus erythematosus, unspecified; I11.0 Hypertensive heart disease with heart failure; I50.9 Heart failure, unspecified; Z99.81 Dependence on supplemental oxygen; E86.0 Dehydration; I25.10 Atherosclerotic heart disease of native coronary artery without angina pectoris; M06.9 Rheumatoid arthritis, unspecified; M81.0 Age-related osteoporosis without current pathological fracture; G89.29 Other chronic pain; E78.00 Pure hypercholesterolemia, unspecified; G47.30 Sleep apnea, unspecified; D64.9 Anemia, unspecified; F41.9 Anxiety disorder, unspecified; K29.70 Gastritis, unspecified, without bleeding; Z86.73 Personal history of transient ischemic attack (TIA), and cerebral infarction without residual deficits; Z95.5 Presence of coronary angioplasty implant and graft; Z79.02 Long term (current) use of antithrombotics/antiplatelets

== ENCOUNTER 2017-06-02 07:43 | Inpatient (IN) | payer MEDICAID ==
[2017-06-02] MEDS ORDERED: Albuterol-Ipratrop 3 mg / 0.5 (3 ml) UD IH STA ×2 (07:54→07:55)
[2017-06-02 08:11] LABS: ABG ALLEN TEST YES; ARTERIAL BLOOD GAS O2 CAPACITY 13.5 mL/dL (16-24); ARTERIAL BLOOD GAS O2 CONTENT 13.3 ML/dL (15-23); ARTERIAL BLOOD GAS O2 SAT 98.8 % (95-98); ARTERIAL BLOOD GAS PCO2 54 mm/Hg (35-45); ARTERIAL BLOOD GAS PH 7.39 (7.35-7.45); ARTERIAL BLOOD GAS PO2 75 mm/Hg (80-100); ARTERIAL BLOOD GAS TCO2 34.4 mmol/L (22-28)
[2017-06-02 08:12] LABS: BASO # 0.1 K/uL (0.0-0.2); BASO % 0.5 % (0.0-2.0); EOS # 0.1 K/uL (0.0-0.7); EOS % 0.9 % (0.0-4.0); HEMOGLOBIN 10.1 g/dL (12.0-16.0); LYMPH # 1.6 K/uL (1.0-4.3); LYMPH % 13.2 % (20.0-40.0); MEAN CELL VOLUME 98.5 fl (81.0-99.0); MEAN CORPUSCULAR HEMOGLOBIN 30.1 pg (27.0-31.0); MEAN CORPUSCULAR HGB CONC 30.5 g/dL (33.0-37.0); MEAN PLATELET VOLUME 10.7 fl (7.2-11.7); MONO # 2.2 K/uL (0.0-0.8); MONO % 18.1 % (0.0-10.0); NEUT # 8.4 K/uL (1.8-7.0); NEUT % 67.3 % (50.0-75.0); NRBC % 1.7 % (0.0-0.0); RBC 3.35 Mil/uL (3.80-5.20); WHITE BLOOD COUNT 12.5 K/uL (4.8-10.8)
--- NOTE | 2017-06-02 08:16 | ED PDOC ---
HPI: SOB/CHF/COPD Time Seen by Provider: 06/02/17 07:49 Chief Complaint (Nursing): Shortness Of Breath Chief Complaint (Provider): Shortness of Breath History Per: Patient History/Exam Limitations: no limitations Onset/Duration Of Symptoms: Days (x2) Current Symptoms Are (Timing): Still Present Severity: None Additional Complaint(s): 61 year old female with an past medical history of asthma and COPD presents to the emergency department complaining of shortness of breath associated with non productive cough x2 days. patient states that she was discharged form the hospital 2 days ago. Denies fever. Patient goes on to report that she tripped and fell on her CPAP machine sustaining injury to the left forehead. Denies loss of consciousness. Past Medical History Reviewed: Historical Data, Nursing Documentation, Vital Signs Vital Signs: Last Vital Signs Temp 98 F 06/02/17 07:49 Pulse 70 06/02/17 08:57 Resp 20 06/02/17 08:57 BP 135/78 06/02/17 08:57 Pulse Ox 93 L 06/02/17 08:57 - Medical History PMH: Anemia, Anxiety, Arthritis, Asthma, Back Problems (chronic back pain), CAD , CHF, COPD, CVA (x3), Depression, Diverticulitis, Gastritis, HTN, Hypercholesterolemia, Osteoporosis, Peripheral Edema, Rheumatoid Arthritis, Sleep Apnea, TIA Denies: HIV, Chronic Kidney Disease, Seizures (denies) - Surgical History Surgical History: Appendectomy, [place] St[place] [facility] [place] (x2) Denies: Cholecystectomy - Family History Family History: States: Unknown Family Hx - Immunization History Hx Influenza Vaccination: Yes - Home Medications Home Medications: Ambulatory Orders Medication Instructions Recorded Alprazolam [Xanax] 0.5 mg PO HS 11/14/16 Meloxicam [Mobic] 7.5 mg PO HS 03/25/17 Polyethylene Glycol/Polyvinyl 1 drop OP BID 03/25/17 [Artificial Tears] Albuterol/Ipratropium [Duoneb 3 3 ml INH RQ4 #30 neb 04/08/17 mg/0.5 mg (3 ml) UD] Clopidogrel [Plavix] 75 mg PO DAILY #30 tab 04/08/17 Docusate Sodium [Stool Softener] 100 mg PO DAILY PRN #30 tablet 04/08/17 Escitalopram [Lexapro] 5 mg PO HS #30 tab 04/08/17 Folic Acid 1 mg PO DAILY #30 tab 04/08/17 Furosemide [Lasix] 20 mg PO QOTHERDAY #30 tablet 04/08/17 Hydroxychloroquine Sulfate 200 mg PO BID #60 tablet 04/08/17 [Plaquenil] Hyoscyamine [Levsin] 1 tab PO HS PRN #30 tab 04/08/17 Methotrexate 2.5 mg PO QWK #4 tab 04/08/17 Mirtazapine [Remeron] 30 mg PO HS #30 tab 04/08/17 Naloxegol Oxalate [Movantik] 25 mg PO DAILY #15 tablet 04/08/17 Ranitidine HCl [Zantac] 150 mg PO DAILY #30 tablet 04/08/17 Tetrahydrz/Dext 70/Peg 400/Pvp [Hm 1 drop OP BID #30 drops 04/08/17 Eye Drops Advanced Relief] rOPINIRole [Requip] 1 mg PO HS #30 tab 04/08/17 Famotidine [Pepcid] 20 mg PO Q12 #20 tab 05/05/17 Ondansetron [Zofran Tab] 4 mg PO Q8H #10 tab 05/05/17 Atorvastatin [Lipitor] 10 mg PO DAILY 06/02/17 Loratadine [Claritin] 10 mg PO DAILY 06/02/17 Prednisone [Kiarra] 5 mg PO DAILY 06/02/17 - Allergies Allergies/Adverse Reactions: Allergies Allergy/AdvReac Type Severity Reaction Status Date / Time No Known Allergies Allergy Verified 06/02/17 07:49 Review of Systems ROS Statement: Except As Marked, All Systems Reviewed And Found Negative Constitutional: Negative for: Fever Respiratory: Positive for: Cough (non productive), Shortness of Breath Physical Exam - Physical Exam Head Exam: Positive for: NORMAL INSPECTION. Negative for: ATRAUMATIC ( eccyhmosis and mild soft tissue swelling to frontal region; no palpable fracture.) Skin: Positive for: Normal Color, Warm, Dry. Negative for: Rash Eye Exam: Positive for: Normal appearance, EOMI, PERRL. Negative for: Nystagmus ENT: Positive for: Normal ENT Inspection. Negative for: Nasal Congestion, Tonsillar Exudate, Tonsillar Swelling Neck: Positive for: Normal, Painless ROM, Supple Cardiovascular/Chest: Positive for: Regular Rate, Rhythm, Chest Non Tender. Negative for: Tachycardia Respiratory: Positive for: Decreased Breath Sounds, Wheezing (end expitory wheezing bilaterally), Respiratory Distress (mild). Negative for: Rales, Rhonchi, Stridor Gastrointestinal/Abdominal: Positive for: Normal Exam, Bowel Sounds, Soft. Negative for: Guarding Back: Positive for: Normal Inspection. Negative for: L CVA Tenderness, R CVA Tenderness Extremity: Positive for: Normal ROM. Negative for: Tenderness, Deformity, Swelling Neurologic/Psych: Positive for: Alert, Oriented, Gait - Laboratory Results Result Diagrams: 06/02/17 08:05 06/02/17 08:05 - ECG O2 Sat by Pulse Oximetry: 99 (RA) Pulse Ox Interpretation: Normal Medical Decision Making Medical Decision Makin Initial Impression 61 year old female presenting with shortness of breath Initial Plan: * ABG * CT Head w/o Contrast * EKG * CMP * Udip * CBC * CXR * Albuterol 3mL INH * Solumedrol 125mg IVP * Toradol 30mg IVP * Vapotherm * Peak Flow Pre/Post * Reevaluation --- Documented by Keena Holley acting as a scribe for Jarrod Ann MD. All medical record entries made by the Scribe were at my direction and personally dictated by me. I have reviewed the chart and agree that the record accurately reflects my personal performance of the history, physical exam, medical decision making, and the department course for this patient. I have also personally directed, reviewed, and agree with the discharge instructions and disposition. Disposition - Clinical Impression Clinical Impression: Dyspnea, Asthma exacerbation with COPD (chronic obstructive pulmonary disease) - Patient ED Disposition Is Patient to be Admitted: Yes - Disposition Disposition Time: 10:35 Condition: FAIR Forms: [facility] (French) - Pt Status Changed To: Hospital Disposition Of: Observation - POA Present On Arrival: None
[2017-06-02 08:19] LABS: ALB/GLOB RATIO 1.2 (1.0-2.1); ALBUMIN 3.7 g/dL (3.5-5.0); ALT/SGPT 48 U/L (9-52); AST/SGOT 34 U/L (14-36); BLOOD UREA NITROGEN 17 mg/dl (7-17); CALCIUM 8.7 mg/dL (8.4-10.2); GFR AFRICAN-AMERICAN > 60; GFR NON-AFRICAN AMERICAN > 60
--- NOTE | 2017-06-02 09:32 | RAD ---
HISTORY: cough COMPARISON: 05/26/2017 FINDINGS: LUNGS: Mild interstitial changes. PLEURA: No significant pleural effusion identified, no pneumothorax apparent. CARDIOVASCULAR: Normal. OSSEOUS STRUCTURES: No significant abnormalities. VISUALIZED UPPER ABDOMEN: Normal. OTHER FINDINGS: None. IMPRESSION: Mild interstitial changes.
--- NOTE | 2017-06-02 10:04 | CT ---
PROCEDURE: CT HEAD WITHOUT CONTRAST. HISTORY: r/o bleed COMPARISON: 12/25/2016 TECHNIQUE: Axial computed tomography images were obtained through the head/brain without intravenous contrast. Radiation dose: Total exam DLP = mGy-cm. This CT exam was performed using one or more of the following dose reduction techniques: Automated exposure control, adjustment of the mA and/or kV according to patient size, and/or use of iterative reconstruction technique. FINDINGS: HEMORRHAGE: No intracranial hemorrhage. BRAIN: No mass effect or edema. No significant change in multifocal infarcts. VENTRICLES: Unremarkable. No hydrocephalus. CALVARIUM: Unremarkable. PARANASAL SINUSES: Unremarkable as visualized. No significant inflammatory changes. MASTOID AIR CELLS: Unremarkable as visualized. No inflammatory changes. OTHER FINDINGS: None. IMPRESSION: No acute hemorrhage. No significant change in multifocal chronic infarcts.
--- NOTE | 2017-06-02 11:26 | CP.PCM.HP ---
History of Present Illness - History of Present Illness History of Present Illness: 61 yo female with history of SLE, RA, Pulmonary HTN, COPD/Asthma on home oxygen , CAD and CVA brought back because of SOB associated with coughing. Patient also fell 2 days ago because of severe weakness of both legs sustaining injury on left forehead. There was no LOC. Present on Admission - Present on Admission Any Indicators Present on Admission: No History of DVT/PE: No History of Uncontrolled Diabetes: No Urinary Catheter: No Decubitus Ulcer Present: No Review of Systems - Review of Systems All systems: reviewed and no additional remarkable complaints except (aside from those mentioned above, 14 point system review were negative by me) Past Patient History - Infectious Disease Hx of Infectious Diseases: None - Tetanus Immunizations Tetanus Immunization: Unknown - Past Medical History & Family History Past Medical History?: Yes - Past Social History Smoking Status: Never Smoked Alcohol: None Drugs: Denies Home Situation {Lives}: With Family - CARDIAC Hx Cardiac Disorders: Yes (CAD, CHF, HIGH CHOLESTEROL) Hx Hypertension: Yes - PULMONARY Hx Respiratory Disorders: Yes (COPD, ASTHMA, O2 DEPENDENT, SLEEP APNEA) Hx Asthma: Yes Hx Chronic Obstructive Pulmonary Disease (COPD): Yes - NEUROLOGICAL HX Cerebrovascular Accident: Yes Hx Seizures: No (denies) Hx Transient Ischemic Attacks (TIA): Yes - HEENT Hx HEENT Problems: No - RENAL Hx Chronic Kidney Disease: No - ENDOCRINE/METABOLIC Hx Endocrine Disorders: No - HEMATOLOGICAL/ONCOLOGICAL Hx Blood Disorders: Yes - INTEGUMENTARY Hx Dermatological Problems: No - MUSCULOSKELETAL/RHEUMATOLOGICAL Hx Arthritis: Yes Hx Osteoporosis: Yes Hx Rheumatoid Arthritis: Yes - GASTROINTESTINAL Hx Diverticulitis: Yes Hx Gastritis: Yes - GENITOURINARY/GYNECOLOGICAL Hx Genitourinary Disorders: Yes - PSYCHIATRIC Hx Psychophysiologic Disorder: Yes (DEPRESSION, ANXIETY) Hx Anxiety: Yes Hx Depression: Yes - SURGICAL HISTORY Hx Appendectomy: Yes Hx Cholecystectomy: No Hx [place] [place] - ANESTHESIA Hx Anesthesia: Yes Hx Anesthesia Reactions: No Hx Malignant Hyperthermia: No Meds Allergies/Adverse Reactions: Allergies Allergy/AdvReac Type Severity Reaction Status Date / Time No Known Allergies Allergy Verified 06/02/17 07:49 Physical Exam - Constitutional Appears: No Acute Distress, Chronically Ill, Other (Cushingoid facie) - Head Exam Head Exam: absent: NORMAL INSPECTION (fading ecchymoses on left forehead) - Eye Exam Eye Exam: absent: Scleral icterus - ENT Exam ENT Exam: Mucous Membranes Moist - Neck Exam Neck exam: Negative for: Meningismus - Respiratory Exam Respiratory Exam: absent: Rales, Rhonchi, Wheezes, Respiratory Distress - Cardiovascular Exam Cardiovascular Exam: REGULAR RHYTHM, +S1, +S2 - GI/Abdominal Exam GI & Abdominal Exam: Soft. absent: Tenderness - Rectal Exam Rectal Exam: Deferred - Extremities Exam Extremities exam: Negative for: pedal edema - Neurological Exam Neurological exam: Alert - Psychiatric Exam Psychiatric exam: Normal Affect - Skin Skin Exam: Dry, Intact Results - Vital Signs Recent Vital Signs: Last Vital Signs Temp 98.8 F 06/02/17 10:55 Pulse 70 06/02/17 08:57 Resp 20 06/02/17 08:57 BP 147/70 06/02/17 10:55 Pulse Ox 99 06/02/17 10:36 - Labs Result Diagrams: 06/02/17 08:05 06/02/17 08:05 Labs: Laboratory Results - last 24 hr 06/02/17 06/02/17 06/02/17 07:53 08:05 08:05 WBC 12.5 H D RBC 3.35 L Hgb 10.1 L Hct 33.0 L MCV 98.5 D MCH 30.1 MCHC 30.5 L RDW 25.0 H Plt Count 197 MPV 10.7 Neut % (Auto) 67.3 Lymph % (Auto) 13.2 L [place] % (Auto) 18.1 H Eos % (Auto) 0.9 Baso % (Auto) 0.5 Neut # (Auto) 8.4 H Lymph # (Auto) 1.6 [place] # (Auto) 2.2 H Eos # (Auto) 0.1 Baso # (Auto) 0.1 pCO2 54 H pO2 75 L HCO3 30.0 H ABG pH 7.39 ABG Total CO2 34.4 H ABG O2 Saturation 98.8 H ABG O2 Content 13.3 L ABG Base Excess 6.6 H ABG Hemoglobin 10.0 L ABG Carboxyhemoglobin 2.9 H POC ABG HHb (Measured) 1.1 ABG Methemoglobin 1.9 ABG O2 Capacity 13.5 L Gio Test Yes A-a O2 Difference 71.0 Hgb O2 Saturation 94.1 L FiO2 30.0 Blood Gas Comments 3l/m nc,rr Crit Value Read Back [place] Sodium 148 Potassium 3.7 Chloride 105 Carbon Dioxide 29 Anion Gap 18 BUN 17 Creatinine 0.9 Est GFR ( Amer) > 60 Est GFR (Non-Af Amer) > 60 Random Glucose 95 Calcium 8.7 Total Bilirubin 1.0 AST 34 ALT 48 Alkaline Phosphatase 162 H Total Protein 6.8 Albumin 3.7 Globulin 3.1 Albumin/Globulin Ratio 1.2 Assessment & Plan - Assessment and Plan (Free Text) Assessment: 61 yo female with history of SLE, RA, Pulmonary HTN, COPD/Asthma on home oxygen , CAD and CVA brought back because of SOB associated with coughing. Patient also fell 2 days ago because of severe weakness of both legs sustaining injury on left forehead. There was no LOC. 1. COPD exacerbation Duoneb QID Albuterol via nebulizer q 4hrs prn SoluMedrol 40mg IVPB q 8hrs Lasix 40mg IV 2. Weakness refer to PT for evaluation and management CT scan of head: negative for bleed 3. CAD continue ASA, Plavix, BB and statin 4. SLE/RA on Hydroxychloroquine and Methotrexate continue Mobic
[2017-06-02] MEDS ORDERED: Albuterol 0.083% Inhal Sol (2.5 mg/3 mL) UD INH PRN (11:49)
[2017-06-02] MEDS ORDERED: Hyoscyamine 0.125 mg SL Tab PO PRN (11:53)
--- NOTE | 2017-06-02 12:22 | CARD ---
APPROVED REPORT EKG Measurement Heart [id number] <Conclusion> Sinus rhythm with premature supraventricular complexes Minimal voltage criteria for LVH, may be normal variant Nonspecific T wave abnormality Abnormal ECG
[2017-06-02] MEDS: Albuterol-Ipratrop 3 mg / 0.5 (3 ml) UD INH SCH ×3 (12:33→19:20)
[2017-06-02] MEDS: MethylPREDNISolone 40 mg Vial IVP SCH (16:46)
[2017-06-02] MEDS: Artificial Tears Opht Soln OU SCH (16:48)
[2017-06-02] MEDS ORDERED: [UNRECOGNIZED DRUG - OTHER] OP SCH (17:00)
[2017-06-02] MEDS ORDERED: methylPREDNISolone 40 MG in Sodium Chloride 0.9% 50 ML IVPB SCH (17:00)
[2017-06-03] MEDS: MethylPREDNISolone 40 mg Vial IVP SCH ×3 (00:17→17:20)
[2017-06-03 07:17] LABS: BASO % 0.2 % (0.0-2.0); LYMPH # 0.4 K/uL (1.0-4.3); LYMPH % 5.1 % (20.0-40.0); MEAN CELL VOLUME 99.2 fl (81.0-99.0); MEAN CORPUSCULAR HEMOGLOBIN 30.5 pg (27.0-31.0); MEAN CORPUSCULAR HGB CONC 30.7 g/dL (33.0-37.0); MEAN PLATELET VOLUME 11.1 fl (7.2-11.7); MONO # 0.7 K/uL (0.0-0.8); MONO % 8.9 % (0.0-10.0); NEUT # 6.6 K/uL (1.8-7.0); NEUT % 85.8 % (50.0-75.0); NRBC % 2.4 % (0.0-0.0); PLATELET COUNT 194 K/uL (130-400); RBC 3.27 Mil/uL (3.80-5.20); RED CELL DISTRIBUTION WIDTH 25.1 % (11.5-14.5); WHITE BLOOD COUNT 7.7 K/uL (4.8-10.8)
[2017-06-03] MEDS: Albuterol-Ipratrop 3 mg / 0.5 (3 ml) UD INH SCH ×4 (07:35→20:12)
[2017-06-03 07:38] LABS: BLOOD UREA NITROGEN 25 mg/dl (7-17); CALCIUM 8.6 mg/dL (8.4-10.2); GFR AFRICAN-AMERICAN > 60; GFR NON-AFRICAN AMERICAN 56
[2017-06-03] MEDS ORDERED: NALOXEGOL OXALATE 25 MG PO SCH (09:00)
[2017-06-03] MEDS: Artificial Tears Opht Soln OU SCH ×2 (10:09→17:19)
[2017-06-03] MEDS: Enoxaparin 40 mg Syringe SC SCH (10:11)
[2017-06-03 10:25] LABS: ANISOCYTOSIS SLIGHT; HYPOCHROMIC SLIGHT; LYMPHOCYTE 6 % (20-50); MONOCYTE 7 % (0-10); NEUTROPHIL 87 % (42-75); NUCLEATED RED BLOOD CELL 2 % (0-0); OVALOCYTES SLIGHT; PLATELET ESTIMATE NORMAL (NORMAL); POIKILOCYTOSIS SLIGHT; TOTAL CELLS COUNTED 100
[2017-06-03 10:26] LABS: LARGE PLATELETS PRESENT
--- NOTE | 2017-06-03 11:04 | CP.PCM.PN ---
Subjective - Date & Time of Evaluation Date of Evaluation: 06/03/17 Time of Evaluation: 10:00 - Subjective Subjective: No fever still with SOB no CP + cough, dry no abd pain still feels weak , generalized complains of left elbow pain Objective - Vital Signs/Intake and Output Vital Signs (last 24 hours): Temp Pulse Resp BP Pulse Ox 97.8 F 65 18 125/75 99 06/03/17 08:41 06/03/17 08:41 06/03/17 08:41 06/03/17 08:41 06/03/17 08:41 - Medications Medications: Current Medications Albuterol Sulfate (Albuterol 0.083% Inhal Lotus (2.5 Mg/3 Ml) Ud) 2.5 mg INH RQ4 PRN PRN Reason: Shortness of Breath Albuterol/Ipratropium (Duoneb 3 Mg/0.5 Mg (3 Ml) Ud) 3 ml INH RQID [facility] Last Admin: 06/03/17 07:35 Dose: 3 ml Alprazolam (Xanax) 0.5 mg PO HS [facility] Last Admin: 06/02/17 22:06 Dose: 0.5 mg Artificial Tears (Artificial Tears) 1 drop OU BID [facility] Last Admin: 06/03/17 10:09 Dose: 1 drop Atorvastatin Calcium (Lipitor) 10 mg PO DAILY [facility] Last Admin: 06/03/17 10:12 Dose: 10 mg Clopidogrel Bisulfate (Plavix) 75 mg PO DAILY [facility] Last Admin: 06/03/17 10:12 Dose: 75 mg Docusate Sodium (Colace) 100 mg PO DAILY PRN PRN Reason: Constipation Last Admin: 06/02/17 17:03 Dose: 100 mg Enoxaparin Sodium (Lovenox) 40 mg SC DAILY [facility] PRN Reason: Protocol Last Admin: 06/03/17 10:11 Dose: 40 mg Escitalopram Oxalate (Lexapro) 5 mg PO HS [facility] Last Admin: 06/02/17 22:02 Dose: 5 mg Famotidine (Pepcid) 20 mg PO Q12 [facility] Last Admin: 06/03/17 10:11 Dose: 20 mg Folic Acid (Folic Acid) 1 mg PO DAILY [facility] Last Admin: 06/03/17 10:11 Dose: 1 mg Home Med (Naloxegol Oxalate [Movantik]) 25 mg PO DAILY [facility] Home Med (Ropinirole [Requip]) 1 mg PO HS [facility] Home Med (Tetrahydrz/Dext 70/Peg 400/Pvp [Hm Eye Drops Advanced Relief]) 1 drop OP BID [facility] Hydroxychloroquine Sulfate (Plaquenil) 200 mg PO BID [facility] PRN Reason: Protocol Last Admin: 06/03/17 10:10 Dose: 200 mg Hyoscyamine (Levsin) 0.125 mg PO HS PRN PRN Reason: Indigestion Loratadine (Claritin) 10 mg PO DAILY [facility] Last Admin: 06/03/17 10:10 Dose: 10 mg Methotrexate (Methotrexate) 2.5 mg PO QWK [facility] PRN Reason: Protocol Methylprednisolone (Solu-Medrol) 40 mg IVP Q8 [facility] Last Admin: 06/03/17 10:09 Dose: 40 mg Mirtazapine (Remeron) 30 mg PO HS [facility] Last Admin: 06/02/17 22:02 Dose: 30 mg Naproxen (Naprosyn Tab) 250 mg PO BID [facility] Last Admin: 06/03/17 10:10 Dose: 250 mg - Labs Labs: 06/03/17 05:30 06/03/17 05:30 - Constitutional Appears: No Acute Distress, Chronically Ill - Head Exam Head Exam: NORMOCEPHALIC Additional comments: frontal hematoma - Eye Exam Eye Exam: EOMI, Normal appearance Pupil Exam: NORMAL ACCOMODATION - ENT Exam ENT Exam: Mucous Membranes Moist, Normal External Ear Exam - Neck Exam Neck Exam: Full ROM. absent: Meningismus - Respiratory Exam Respiratory Exam: Decreased Breath Sounds, Rhonchi, Wheezes - Cardiovascular Exam Cardiovascular Exam: REGULAR RHYTHM, +S1, +S2 - GI/Abdominal Exam GI & Abdominal Exam: Soft, Normal Bowel Sounds. absent: Tenderness - Extremities Exam Extremities Exam: Normal Capillary Refill. absent: Calf Tenderness, Pedal Edema - Back Exam Back Exam: absent: CVA tenderness (L), CVA tenderness (R) - Neurological Exam Neurological Exam: Alert, Awake, CN II-XII Intact, Oriented x3 Neuro motor strength exam: Left Upper Extremity: 4, Right Upper Extremity: 4, Left Lower Extremity: 4, Right Lower Extremity: 4 - Psychiatric Exam Psychiatric exam: Normal Affect, Normal Mood - Skin Skin Exam: Dry, Normal Color, Warm Assessment and Plan - Assessment and Plan (Free Text) Assessment: 61 yo female with history of SLE, RA, Pulmonary HTN, COPD/Asthma on home oxygen , Sleep Apnea on CPAP q hs, CAD and CVA was brought in because of SOB associated with coughing. Patient also fell 2 days ago after she tripped on her Oxygen tubing sustaining injury on forehead. There was no LOC. CT of head : negative for any bleed/fracture 1. COPD exacerbation cont Duoneb nebulizer treatments cont SoluMedrol 40mg IVPB q 8hrs cont Oxygen at 3 liters [place] Pulm consult : Dr Thomas CXR : neg infiltrate 2. Fall with Head Trauma Pt also complains of brusing and pain on her left elbow CT of head : neg Elbow xray Hip xray Physical therapy consult 3. CAD stable continue ASA, Plavix, BB and statin 4. SLE/RA on Hydroxychloroquine and Methotrexate Pain mgt 5. Sleep Apnea/ Obesity Hypoventilation cont CPAp q hs ff up with Dr Grier as outpt 6. Depression - cont Remeron 7. DVT Proph - Lovenox
--- NOTE | 2017-06-03 13:46 | RAD ---
HISTORY: Fall COMPARISON: No prior FINDINGS: BONES: Bilateral degenerative changes and osteopenia. Recommend correlation with MRI scan if symptoms warrant. JOINTS: Normal. No osteoarthritis. SOFT TISSUE: Normal. OTHER FINDINGS: None . IMPRESSION: Bilateral degenerative changes and osteopenia. Recommend correlation with CT scan if symptoms warrant.
--- NOTE | 2017-06-03 13:47 | RAD ---
HISTORY: Fall, pain COMPARISON: No prior FINDINGS: BONES: Normal. No fracture. JOINTS: Normal. No osteoarthritis. SOFT TISSUE: Normal. OTHER FINDINGS: None . IMPRESSION: Normal Bone Xray.
--- NOTE | 2017-06-03 19:45 | CP.PCM.CON ---
History of Present Illness - History of Present Illness History of Present Illness: Pulmonary consult . 61 y/o F, with multiple chronic medical condition, including COPD Bronchial Asthma, OLIVIA, CVA x3, TIA, CHF with coronary stent, SLE. Pt was brought by EMS to ER [facility] [place] on 06/02/17 for evaluation of moderate increased SOB x 2 days associated to cough, non productive. Pt using O2 at home with no relief. Also Pt mentioned that she stepped and fell on her CPAP machine sustaining injury to her L forehead, no LOC, no Fx. Pt was discharged from [facility] on 05/28/17 after been Tx for Diarrhea, dehydration , COPD exacerbation. Worsening symptoms: Generalized weakness. Aggravated factor: Movements/ exercise. Pt denied: Fever, chills, CP, palpitations, dizziness, LOC, n/v/d, abdominal pain, urinary symptoms, sick contact, recent travel out of [facility]. CXR shows: Mild interstitial changes. EKG: Sinus rhythm with PSC, minimal voltage criteria for LVH. Review of Systems - Constitutional Constitutional: Sleep Apnea, Weakness - EENT Eyes: Other (negative) Ears: Other (negative) Nose/Mouth/Throat: Nasal Congestion - Cardiovascular Cardiovascular: Dyspnea on Exertion, Edema, Other - Respiratory Respiratory: Cough, Dyspnea, Dyspnea on Exertion, Wheezing - Gastrointestinal Gastrointestinal: Other (negative) - Genitourinary Genitourinary: Other (negative) - Musculoskeletal Musculoskeletal: Arthralgias, Back Pain - Integumentary Integumentary: Other (negative) - Neurological Neurological: Weakness - Psychiatric Psychiatric: Anxiety, Depression - Endocrine Endocrine: Other (negative) - Hematologic/Lymphatic Hematologic: Other (negative) Past Patient History - Infectious Disease Hx of Infectious Diseases: None - Tetanus Immunizations Tetanus Immunization: Unknown - Past Medical History & Family History Past Medical History?: Yes Pertinent Family History: Father: CVA, HTN, DM. Mother: HTN, DM, CABG. - Past Social History Smoking Status: Never Smoked Alcohol: None Drugs: Denies Home Situation {Lives}: With Family - CARDIAC Hx Cardiac Disorders: Yes (CAD, CHF, HIGH CHOLESTEROL) Hx Hypertension: Yes - PULMONARY Hx Respiratory Disorders: Yes (COPD, ASTHMA, O2 DEPENDENT, SLEEP APNEA) Hx Asthma: Yes Hx Chronic Obstructive Pulmonary Disease (COPD): Yes - NEUROLOGICAL HX Cerebrovascular Accident: Yes (X3) Hx Seizures: No (denies) Hx Transient Ischemic Attacks (TIA): Yes - HEENT Hx HEENT Problems: No - RENAL Hx Chronic Kidney Disease: No - ENDOCRINE/METABOLIC Hx Endocrine Disorders: No - HEMATOLOGICAL/ONCOLOGICAL Hx Blood Disorders: Yes Hx Anemia: Yes - INTEGUMENTARY Hx Dermatological Problems: No - MUSCULOSKELETAL/RHEUMATOLOGICAL Hx Arthritis: Yes Hx Falls: Yes Hx Osteoporosis: Yes Hx Rheumatoid Arthritis: Yes - GASTROINTESTINAL Hx Diverticulitis: Yes Hx Gastritis: Yes - GENITOURINARY/GYNECOLOGICAL Hx Genitourinary Disorders: Yes - PSYCHIATRIC Hx Psychophysiologic Disorder: Yes (DEPRESSION, ANXIETY) Hx Anxiety: Yes Hx Depression: Yes Hx Substance Use: No - SURGICAL HISTORY Hx Appendectomy: Yes Hx Cholecystectomy: No Hx Coronary Stent: Yes (Rex perez [facility]) - ANESTHESIA Hx Anesthesia: Yes Hx Anesthesia Reactions: No Hx Malignant Hyperthermia: No Meds Allergies/Adverse Reactions: Allergies Allergy/AdvReac Type Severity Reaction Status Date / Time No Known Allergies Allergy Verified 06/02/17 07:49 - Medications Medications: Current Medications Albuterol Sulfate (Albuterol 0.083% Inhal Lotus (2.5 Mg/3 Ml) Ud) 2.5 mg INH RQ4 PRN PRN Reason: Shortness of Breath Albuterol/Ipratropium (Duoneb 3 Mg/0.5 Mg (3 Ml) Ud) 3 ml INH RQID [facility] Last Admin: 06/03/17 15:14 Dose: 3 ml Alprazolam (Xanax) 0.5 mg PO [facility] Last Admin: 06/02/17 22:06 Dose: 0.5 mg Artificial Tears (Artificial Tears) 1 drop OU BID [facility] Last Admin: 06/03/17 17:19 Dose: 1 drop Atorvastatin Calcium (Lipitor) 10 mg PO DAILY [facility] Last Admin: 06/03/17 10:12 Dose: 10 mg Clopidogrel Bisulfate (Plavix) 75 mg PO DAILY [facility] Last Admin: 06/03/17 10:12 Dose: 75 mg Docusate Sodium (Colace) 100 mg PO DAILY PRN PRN Reason: Constipation Last Admin: 06/02/17 17:03 Dose: 100 mg Enoxaparin Sodium (Lovenox) 40 mg SC DAILY [facility] PRN Reason: Protocol Last Admin: 06/03/17 10:11 Dose: 40 mg Escitalopram Oxalate (Lexapro) 5 mg PO [facility] Last Admin: 06/02/17 22:02 Dose: 5 mg Famotidine (Pepcid) 20 mg PO Q12 [facility] Last Admin: 06/03/17 10:11 Dose: 20 mg Folic Acid (Folic Acid) 1 mg PO DAILY [facility] Last Admin: 06/03/17 10:11 Dose: 1 mg Home Med (Naloxegol Oxalate [Movantik]) 25 mg PO DAILY [facility] Home Med (Ropinirole [Requip]) 1 mg PO HS [facility] Home Med (Tetrahydrz/Dext 70/Peg 400/Pvp [Hm Eye Drops Advanced Relief]) 1 drop OP BID [facility] Hydroxychloroquine Sulfate (Plaquenil) 200 mg PO BID [facility] PRN Reason: Protocol Last Admin: 06/03/17 17:19 Dose: 200 mg Hyoscyamine (Levsin) 0.125 mg PO HS PRN PRN Reason: Indigestion Loratadine (Claritin) 10 mg PO DAILY [facility] Last Admin: 06/03/17 10:10 Dose: 10 mg Methotrexate (Methotrexate) 2.5 mg PO QWK [facility] PRN Reason: Protocol Methylprednisolone (Solu-Medrol) 40 mg IVP Q8 [facility] Last Admin: 06/03/17 17:20 Dose: 40 mg Mirtazapine (Remeron) 30 mg PO HS [facility] Last Admin: 06/02/17 22:02 Dose: 30 mg Naproxen (Naprosyn Tab) 250 mg PO BID [facility] Last Admin: 06/03/17 17:19 Dose: 250 mg Physical Exam - Constitutional Appears: Chronically Ill - Head Exam Additional comments: Mild tissue swelling frontal head. - Eye Exam Eye Exam: PERRL - ENT Exam ENT Exam: Mucous Membranes Moist Additional comments: On NC - Neck Exam Neck exam: Positive for: Normal Inspection - Respiratory Exam Respiratory Exam: Decreased Breath Sounds (at bases), Wheezes - Cardiovascular Exam Cardiovascular Exam: REGULAR RHYTHM - GI/Abdominal Exam GI & Abdominal Exam: Normal Bowel Sounds, Soft - Extremities Exam Extremities exam: Positive for: normal inspection - Back Exam Back exam: NORMAL INSPECTION - Neurological Exam Neurological exam: Alert, CN II-XII Intact, Oriented x3 - Psychiatric Exam Psychiatric exam: Anxious - Skin Skin Exam: Normal Color, Warm Results - Vital Signs Recent Vital Signs: Last Vital Signs Temp 98.0 F 06/03/17 19:19 Pulse 84 06/03/17 19:19 Resp 18 06/03/17 19:19 BP 115/64 06/03/17 19:19 Pulse Ox 92 L 06/03/17 19:19 reviewed J.P. - Labs Result Diagrams: 06/03/17 05:30 06/03/17 05:30 Labs: Laboratory Results - last 24 hr 06/03/17 06/03/17 05:30 05:30 WBC 7.7 RBC 3.27 L Hgb 10.0 L Hct 32.5 L MCV 99.2 H MCH 30.5 MCHC 30.7 L RDW 25.1 H Plt Count 194 MPV 11.1 Neut % (Auto) 85.8 H Lymph % (Auto) 5.1 L [place] % (Auto) 8.9 Eos % (Auto) 0.0 Baso % (Auto) 0.2 Neut # (Auto) 6.6 Lymph # (Auto) 0.4 L [place] # (Auto) 0.7 Eos # (Auto) 0.0 Baso # (Auto) 0.0 Neutrophils % (Manual) 87 H Lymphocytes % (Manual) 6 L Monocytes % (Manual) 7 Nucleated RBC % 2 H Platelet Estimate Normal Large Platelets Present Hypochromasia (manual) Slight Poikilocytosis (manual Slight Anisocytosis (manual) Slight Macrocytosis (manual) Slight Ovalocytes Slight Sodium 146 Potassium 4.4 Chloride 101 Carbon Dioxide 34 H Anion Gap 15 BUN 25 H Creatinine 1.0 Est GFR ( Amer) > 60 Est GFR (Non-Af Amer) 56 Random Glucose 144 H Calcium 8.6 reviewed J.P. - EKG Data EKG comments: reviewed J.P. - Imaging and Cardiology Chest x-ray Status: Report reviewed by me (J.P.) CT scan - head Status: Report reviewed by me (J.P.) Additional comment: Elbow and Hip/Pelvis X-Ray reviewed J.P. Assessment & Plan (1) COPD exacerbation Status: Acute Priority: High (2) Asthma exacerbation Status: Acute Priority: High (3) OLIVIA (obstructive sleep apnea) Status: Chronic Priority: High (4) Pulmonary artery hypertension Status: Chronic Priority: High - Assessment and Plan (Free Text) Plan: F/U Echo, continue NC 2 L/M, continue Duoneb, Solumedrol, Claritin and rest of Tx. - Date & Time Date: 06/03/17 Time: 18:40
[2017-06-04] MEDS: MethylPREDNISolone 40 mg Vial IVP SCH ×3 (02:18→21:41)
[2017-06-04] MEDS: Albuterol-Ipratrop 3 mg / 0.5 (3 ml) UD INH SCH ×4 (07:37→19:40)
--- NOTE | 2017-06-04 08:58 | CP.PCM.PN ---
Subjective - Date & Time of Evaluation Date of Evaluation: 06/04/17 Time of Evaluation: 08:00 - Subjective Subjective: No fever' still with SOB hubert on exertion + coughing spells no CP no abd pain Objective - Vital Signs/Intake and Output Vital Signs (last 24 hours): Temp Pulse Resp BP Pulse Ox 97.2 F L 72 18 138/81 99 06/04/17 08:05 06/04/17 08:05 06/04/17 08:05 06/04/17 08:05 06/04/17 08:05 - Medications Medications: Current Medications Albuterol Sulfate (Albuterol 0.083% Inhal Lotus (2.5 Mg/3 Ml) Ud) 2.5 mg INH RQ4 PRN PRN Reason: Shortness of Breath Albuterol/Ipratropium (Duoneb 3 Mg/0.5 Mg (3 Ml) Ud) 3 ml INH RQID [facility] Last Admin: 06/04/17 07:37 Dose: 3 ml Alprazolam (Xanax) 0.5 mg PO HS [facility] Last Admin: 06/03/17 22:38 Dose: 0.5 mg Artificial Tears (Artificial Tears) 1 drop OU BID [facility] Last Admin: 06/03/17 17:19 Dose: 1 drop Atorvastatin Calcium (Lipitor) 10 mg PO DAILY [facility] Last Admin: 06/03/17 10:12 Dose: 10 mg Clopidogrel Bisulfate (Plavix) 75 mg PO DAILY [facility] Last Admin: 06/03/17 10:12 Dose: 75 mg Docusate Sodium (Colace) 100 mg PO DAILY PRN PRN Reason: Constipation Last Admin: 06/02/17 17:03 Dose: 100 mg Enoxaparin Sodium (Lovenox) 40 mg SC DAILY [facility] PRN Reason: Protocol Last Admin: 06/03/17 10:11 Dose: 40 mg Escitalopram Oxalate (Lexapro) 5 mg PO HS [facility] Last Admin: 06/03/17 22:37 Dose: 5 mg Famotidine (Pepcid) 20 mg PO Q12 [facility] Last Admin: 06/03/17 22:37 Dose: 20 mg Folic Acid (Folic Acid) 1 mg PO DAILY [facility] Last Admin: 06/03/17 10:11 Dose: 1 mg Home Med (Naloxegol Oxalate [Movantik]) 25 mg PO DAILY [facility] Home Med (Ropinirole [Requip]) 1 mg PO HS [facility] Home Med (Tetrahydrz/Dext 70/Peg 400/Pvp [Hm Eye Drops Advanced Relief]) 1 drop OP BID [facility] Hydroxychloroquine Sulfate (Plaquenil) 200 mg PO BID [facility] PRN Reason: Protocol Last Admin: 06/03/17 17:19 Dose: 200 mg Hyoscyamine (Levsin) 0.125 mg PO HS PRN PRN Reason: Indigestion Loratadine (Claritin) 10 mg PO DAILY [facility] Last Admin: 06/03/17 10:10 Dose: 10 mg Methotrexate (Methotrexate) 2.5 mg PO QWK [facility] PRN Reason: Protocol Methylprednisolone (Solu-Medrol) 40 mg IVP Q12 [facility] Mirtazapine (Remeron) 30 mg PO HS [facility] Last Admin: 06/03/17 22:38 Dose: 30 mg Naproxen (Naprosyn Tab) 250 mg PO BID [facility] Last Admin: 06/03/17 17:19 Dose: 250 mg - Labs Labs: 06/03/17 05:30 06/03/17 05:30 - Constitutional Appears: No Acute Distress, Chronically Ill - Head Exam Head Exam: NORMOCEPHALIC Additional comments: left frontal hematoma - Eye Exam Eye Exam: EOMI, Normal appearance Pupil Exam: NORMAL ACCOMMODATION - ENT Exam ENT Exam: Mucous Membranes Moist, Normal External Ear Exam - Neck Exam Neck Exam: Full ROM. absent: Meningismus - Respiratory Exam Respiratory Exam: Decreased Breath Sounds, Rhonchi, Wheezes - Cardiovascular Exam Cardiovascular Exam: REGULAR RHYTHM, +S1, +S2 - GI/Abdominal Exam GI & Abdominal Exam: Soft, Normal Bowel Sounds. absent: Tenderness - Extremities Exam Extremities Exam: Normal Capillary Refill. absent: Calf Tenderness, Pedal Edema - Back Exam Back Exam: absent: CVA tenderness (L), CVA tenderness (R) - Neurological Exam Neurological Exam: Alert, Awake, CN II-XII Intact, Oriented x3 Neuro motor strength exam: Left Upper Extremity: 4, Right Upper Extremity: 4, Left Lower Extremity: 4, Right Lower Extremity: 4 - Psychiatric Exam Psychiatric exam: Normal Affect, Normal Mood - Skin Skin Exam: Dry, Normal Color, Warm Assessment and Plan - Assessment and Plan (Free Text) Assessment: 61 yo female with history of SLE, RA, Pulmonary HTN, COPD/Asthma on home oxygen , Sleep Apnea on CPAP q hs, CAD and CVA was brought in because of SOB associated with coughing. Patient also fell 2 days ago after she tripped on her Oxygen tubing sustaining injury on forehead. There was no LOC. CT of head : negative for any bleed/fracture. PT consulted - rec ALVAREZ placement. 1. COPD exacerbation cont Duoneb nebulizer treatments cont SoluMedrol 40mg IVPB q 8hrs cont Oxygen at 3 liters [place] Pulm consult : Dr Thomas CXR : neg infiltrate 2. Fall with Head Trauma sustained frontal hematoma , elbow pain CT of head : neg Elbow xray: neg fracture Hip xray: no fracture Physical therapy consulted- rec ALVAREZ placement 3. Pulmonary HTN sec to COPD, Sleep Apnea and ? sec to RA Pulm consulted- discussed case with Dr Thomas Echo 4. CAD stable continue ASA, Plavix, BB and statin 5. SLE/RA on Hydroxychloroquine and Methotrexate Pain mgt 6. Sleep Apnea/ Obesity Hypoventilation cont CPAp q hs ff up with Dr Grier as outpt 7. Depression - cont Remeron DVT Proph - Lovenox
[2017-06-04] MEDS: Artificial Tears Opht Soln OU SCH ×2 (09:39→16:40)
[2017-06-04] MEDS: Enoxaparin 40 mg Syringe SC SCH (09:39)
--- NOTE | 2017-06-04 12:33 | CARD ---
APPROVED REPORT EXAM: Two-dimensional and M-mode echocardiogram with Doppler and color Doppler. Other Information Quality : GoodRhythm : NSR INDICATION COPD 2D DIMENSIONS IVSd1.01 (0.7-1.1cm)LVDd3.89 (3.9-5.9cm) LVOT Diameter2.34 (1.8-2.4cm)PWd0.96 (0.7-1.1cm) IVSs1.14 (0.8-1.2cm)LVDs2.69 (2.5-4.0cm) FS (%) 30.9 %PWs1.00 (0.8-1.2cm) M-Mode DIMENSIONS Left Atrium (MM)4.76 (2.5-4.0cm)IVSd1.09 (0.7-1.1cm) Aortic Root2.76 (2.2-3.7cm)LVDd4.97 (4.0-5.6cm) Aortic Cusp Exc.1.62 (1.5-2.0cm)PWd1.06 (0.7-1.1cm) IVSs1.18 cmFS (%) 41 % LVDs2.91 (2.0-3.8cm)PWs1.41 cm Mitral Valve MV E Oifhdgvk864.4cm/sMV DECEL ODEL326kgSR A Qrfyzlal98.3cm/s MV TSY26gnQ/A ratio1.6MVA (PHT)4.47cm2 TDI Lateral E' Peak V7.58cm/sE/Lateral E'21.2E/Medial E'0.0 Pulmonary Valve PV Peak Dfvjwfbt532.7cm/s Tricuspid Valve TR Peak Uiftppgu844re/sRAP NCOTIVGB85yzSpAO Peak Gr.61mmHg [id number] LEFT VENTRICLE The left ventricle is normal size. There is normal left ventricular wall thickness. The left ventricular function is normal. The left ventricular ejection fraction is within the normal range. The Ejection Fraction is 60-65%. There is normal LV segmental wall motion. The left ventricular diastolic function is normal. RIGHT VENTRICLE The right ventricle is normal size. There is normal right ventricular wall thickness. The right ventricular systolic function is normal. ATRIA The left atrium size is normal. The right atrium size is normal. AORTIC VALVE The aortic valve is normal in structure. No aortic regurgitation is present. There is no aortic valvular stenosis. MITRAL VALVE The mitral valve is normal in structure. There is no mitral valve stenosis. Mitral regurgitation is moderate to severe. TRICUSPID VALVE The tricuspid valve is normal in structure. There is moderate to severe tricuspid regurgitation. Right ventricular systolic pressure is estimated at 71 mmHg. There is severe pulmonary hypertension. There is no tricuspid valve stenosis. PULMONIC VALVE The pulmonary valve is normal in structure. There is no pulmonic valvular regurgitation. GREAT VESSELS The aortic root is normal in size. The IVC is normal in size and collapses >50% with inspiration. PERICARDIAL EFFUSION The pericardium appears normal. <Conclusion> The left ventricle is normal size. The left ventricular function is normal. The left ventricular ejection fraction is within the normal range. The Ejection Fraction is 60-65%. Mitral regurgitation is moderate to severe. There is moderate to severe tricuspid regurgitation. Right ventricular systolic pressure is estimated at 71 mmHg. There is severe pulmonary hypertension.
--- NOTE | 2017-06-04 16:47 | CP.PCM.PN ---
Subjective - Date & Time of Evaluation Date of Evaluation: 06/04/17 Time of Evaluation: 12:00 - Subjective Subjective: F/U COPD B/A Exacerbation. breathing better Objective - Vital Signs/Intake and Output Vital Signs (last 24 hours): Temp Pulse Resp BP Pulse Ox 97.9 F 84 20 119/66 97 06/04/17 15:38 06/04/17 15:38 06/04/17 15:38 06/04/17 15:38 06/04/17 15:38 - Medications Medications: Current Medications Albuterol Sulfate (Albuterol 0.083% Inhal Lotus (2.5 Mg/3 Ml) Ud) 2.5 mg INH RQ4 PRN PRN Reason: Shortness of Breath Albuterol/Ipratropium (Duoneb 3 Mg/0.5 Mg (3 Ml) Ud) 3 ml INH RQID [facility] Last Admin: 06/04/17 15:39 Dose: 3 ml Alprazolam (Xanax) 0.5 mg PO HS [facility] Last Admin: 06/03/17 22:38 Dose: 0.5 mg Artificial Tears (Artificial Tears) 1 drop OU BID [facility] Last Admin: 06/04/17 16:40 Dose: 1 drop Atorvastatin Calcium (Lipitor) 10 mg PO DAILY [facility] Last Admin: 06/04/17 09:41 Dose: 10 mg Clopidogrel Bisulfate (Plavix) 75 mg PO DAILY [facility] Last Admin: 06/04/17 09:41 Dose: 75 mg Docusate Sodium (Colace) 100 mg PO DAILY PRN PRN Reason: Constipation Last Admin: 06/04/17 09:40 Dose: 100 mg Enoxaparin Sodium (Lovenox) 40 mg SC DAILY [facility] PRN Reason: Protocol Last Admin: 06/04/17 09:39 Dose: 40 mg Escitalopram Oxalate (Lexapro) 5 mg PO HS [facility] Last Admin: 06/03/17 22:37 Dose: 5 mg Famotidine (Pepcid) 20 mg PO Q12 [facility] Last Admin: 06/04/17 09:41 Dose: 20 mg Folic Acid (Folic Acid) 1 mg PO DAILY [facility] Last Admin: 06/04/17 09:41 Dose: 1 mg Hydroxychloroquine Sulfate (Plaquenil) 200 mg PO BID [facility] PRN Reason: Protocol Last Admin: 06/04/17 16:41 Dose: 200 mg Hyoscyamine (Levsin) 0.125 mg PO HS PRN PRN Reason: Indigestion Loratadine (Claritin) 10 mg PO DAILY [facility] Last Admin: 06/04/17 09:41 Dose: 10 mg Methotrexate (Methotrexate) 2.5 mg PO QWK [facility] PRN Reason: Protocol Methylprednisolone (Solu-Medrol) 40 mg IVP Q12 [facility] Last Admin: 06/04/17 09:40 Dose: 40 mg Mirtazapine (Remeron) 30 mg PO HS [facility] Last Admin: 06/03/17 22:38 Dose: 30 mg Naproxen (Naprosyn Tab) 250 mg PO BID [facility] Last Admin: 06/04/17 16:41 Dose: 250 mg - Labs Labs: 06/03/17 05:30 06/03/17 05:30 - Head Exam Head Exam: NORMAL INSPECTION - Eye Exam Eye Exam: PERRL - ENT Exam ENT Exam: Normal Exam - Neck Exam Neck Exam: Normal Inspection - Respiratory Exam Respiratory Exam: Decreased Breath Sounds (at bases), Wheezes (few scattered) - Cardiovascular Exam Cardiovascular Exam: REGULAR RHYTHM - GI/Abdominal Exam GI & Abdominal Exam: Soft, Normal Bowel Sounds - Extremities Exam Extremities Exam: Normal Inspection - Back Exam Back Exam: NORMAL INSPECTION - Neurological Exam Neurological Exam: Alert, CN II-XII Intact, Oriented x3 - Psychiatric Exam Psychiatric exam: Anxious - Skin Skin Exam: Normal Color, Warm Assessment and Plan (1) COPD exacerbation Status: Acute (2) Asthma exacerbation Status: Acute (3) OLIVIA (obstructive sleep apnea) Status: Chronic (4) Pulmonary artery hypertension Status: Chronic - Assessment and Plan (Free Text) Plan: ECHO LV normal size, LVEF 60-65 % , MR mod-sev , TR mod-sev , RVSP 71mmHg , severe Pulmonary HTN, f/u Cardiolgist for further management
[2017-06-05] MEDS: Albuterol-Ipratrop 3 mg / 0.5 (3 ml) UD INH SCH ×3 (07:59→15:41)
--- NOTE | 2017-06-05 09:34 | CP.PCM.CON ---
History of Present Illness - History of Present Illness History of Present Illness: 61 y/o F, with multiple chronic medical condition, including COPD Bronchial Asthma, OLIVIA, CVA x3, TIA, CHF with coronary stent, SLE. Admitted with SOB/cough Exacerbation of COPD/Asthma Echo: severe PH MR TR EKG: NSR PVC LVH Cardiology consult called for skipped beats on thermodynamics professor strips show PAC's and occasional blocked PAC's Pt remains asymptomatic No Palpitations/dizziness Past Patient History - Infectious Disease Hx of Infectious Diseases: None - Tetanus Immunizations Tetanus Immunization: Unknown - Past Medical History & Family History Past Medical History?: Yes - Past Social History Smoking Status: Never Smoked Alcohol: None Drugs: Denies Home Situation {Lives}: With Family - CARDIAC Hx Cardiac Disorders: Yes (CAD, CHF, HIGH CHOLESTEROL) Hx Hypertension: Yes - PULMONARY Hx Respiratory Disorders: Yes (COPD, ASTHMA, O2 DEPENDENT, SLEEP APNEA) Hx Asthma: Yes Hx Chronic Obstructive Pulmonary Disease (COPD): Yes - NEUROLOGICAL HX Cerebrovascular Accident: Yes (X3) Hx Seizures: No (denies) Hx Transient Ischemic Attacks (TIA): Yes - HEENT Hx HEENT Problems: No - RENAL Hx Chronic Kidney Disease: No - ENDOCRINE/METABOLIC Hx Endocrine Disorders: No - HEMATOLOGICAL/ONCOLOGICAL Hx Blood Disorders: Yes Hx Anemia: Yes - INTEGUMENTARY Hx Dermatological Problems: No - MUSCULOSKELETAL/RHEUMATOLOGICAL Hx Arthritis: Yes Hx Falls: Yes Hx Osteoporosis: Yes Hx Rheumatoid Arthritis: Yes - GASTROINTESTINAL Hx Diverticulitis: Yes Hx Gastritis: Yes - GENITOURINARY/GYNECOLOGICAL Hx Genitourinary Disorders: Yes - PSYCHIATRIC Hx Psychophysiologic Disorder: Yes (DEPRESSION, ANXIETY) Hx Anxiety: Yes Hx Depression: Yes Hx Substance Use: No - SURGICAL HISTORY Hx Appendectomy: Yes Hx Cholecystectomy: No Hx Coronary Stent: Yes ([facility] [place]) - ANESTHESIA Hx Anesthesia: Yes Hx Anesthesia Reactions: No Hx Malignant Hyperthermia: No Meds Allergies/Adverse Reactions: Allergies Allergy/AdvReac Type Severity Reaction Status Date / Time No Known Allergies Allergy Verified 06/02/17 07:49 - Medications Medications: Current Medications Albuterol Sulfate (Albuterol 0.083% Inhal Lotus (2.5 Mg/3 Ml) Ud) 2.5 mg INH RQ4 PRN PRN Reason: Shortness of Breath Albuterol/Ipratropium (Duoneb 3 Mg/0.5 Mg (3 Ml) Ud) 3 ml INH RQID [facility] Last Admin: 06/05/17 07:59 Dose: 3 ml Alprazolam (Xanax) 0.5 mg PO HS [facility] Last Admin: 06/04/17 21:43 Dose: 0.5 mg Artificial Tears (Artificial Tears) 1 drop OU BID [facility] Last Admin: 06/04/17 16:40 Dose: 1 drop Atorvastatin Calcium (Lipitor) 10 mg PO DAILY [facility] Last Admin: 06/04/17 09:41 Dose: 10 mg Clopidogrel Bisulfate (Plavix) 75 mg PO DAILY [facility] Last Admin: 06/04/17 09:41 Dose: 75 mg Docusate Sodium (Colace) 100 mg PO DAILY PRN PRN Reason: Constipation Last Admin: 06/04/17 09:40 Dose: 100 mg Enoxaparin Sodium (Lovenox) 40 mg SC DAILY [facility] PRN Reason: Protocol Last Admin: 06/04/17 09:39 Dose: 40 mg Escitalopram Oxalate (Lexapro) 5 mg PO HS [facility] Last Admin: 06/04/17 21:41 Dose: 5 mg Famotidine (Pepcid) 20 mg PO Q12 [facility] Last Admin: 06/04/17 21:41 Dose: 20 mg Folic Acid (Folic Acid) 1 mg PO DAILY [facility] Last Admin: 06/04/17 09:41 Dose: 1 mg Hydroxychloroquine Sulfate (Plaquenil) 200 mg PO BID [facility] PRN Reason: Protocol Last Admin: 06/04/17 16:41 Dose: 200 mg Hyoscyamine (Levsin) 0.125 mg PO HS PRN PRN Reason: Indigestion Loratadine (Claritin) 10 mg PO DAILY [facility] Last Admin: 06/04/17 09:41 Dose: 10 mg Methotrexate (Methotrexate) 2.5 mg PO QWK [facility] PRN Reason: Protocol Methylprednisolone (Solu-Medrol) 40 mg IVP Q12 [facility] Last Admin: 06/04/17 21:41 Dose: 40 mg Mirtazapine (Remeron) 30 mg PO HS [facility] Last Admin: 06/04/17 21:41 Dose: 30 mg Naproxen (Naprosyn Tab) 250 mg PO BID [facility] Last Admin: 06/04/17 16:41 Dose: 250 mg Physical Exam - Respiratory Exam Respiratory Exam: Decreased Breath Sounds, Wheezes - Cardiovascular Exam Cardiovascular Exam: REGULAR RHYTHM Results - Vital Signs Recent Vital Signs: Last Vital Signs Temp 97.4 F L 06/05/17 07:56 Pulse 69 06/05/17 07:56 Resp 16 06/05/17 07:56 BP 145/78 06/05/17 07:56 Pulse Ox 100 06/05/17 07:56 - Labs Result Diagrams: 06/03/17 05:30 06/03/17 05:30 Assessment & Plan (1) Blocked premature atrial contraction Assessment and Plan: Pt has occasional blocked PAC's this is benign no Tx necessary Status: Acute (2) Asthma exacerbation with COPD (chronic obstructive pulmonary disease) Status: Acute (3) COPD exacerbation Status: Acute Priority: High
[2017-06-05] MEDS: Artificial Tears Opht Soln OU SCH (09:55)
[2017-06-05] MEDS: Enoxaparin 40 mg Syringe SC SCH (09:57)
[2017-06-05] MEDS: MethylPREDNISolone 40 mg Vial IVP SCH (09:59)
[2017-06-05 13:05] VITALS: RESP 17
--- NOTE | 2017-06-05 15:39 | CP.PCM.PN ---
Subjective - Date & Time of Evaluation Date of Evaluation: 06/05/17 Time of Evaluation: 13:20 - Subjective Subjective: F/U COPD Exacerbation. Pt having dry cough, SOB on and off. Objective - Vital Signs/Intake and Output Vital Signs (last 24 hours): Temp Pulse Resp BP Pulse Ox 98.1 F 84 17 110/81 95 06/05/17 13:05 06/05/17 13:05 06/05/17 13:05 06/05/17 13:05 06/05/17 13:05 - Medications Medications: Current Medications Albuterol Sulfate (Albuterol 0.083% Inhal Lotus (2.5 Mg/3 Ml) Ud) 2.5 mg INH RQ4 PRN PRN Reason: Shortness of Breath Albuterol/Ipratropium (Duoneb 3 Mg/0.5 Mg (3 Ml) Ud) 3 ml INH RQID [facility] Last Admin: 06/05/17 12:00 Dose: Not Given Alprazolam (Xanax) 0.5 mg PO HS [facility] Last Admin: 06/04/17 21:43 Dose: 0.5 mg Artificial Tears (Artificial Tears) 1 drop OU BID [facility] Last Admin: 06/05/17 09:55 Dose: 1 drop Atorvastatin Calcium (Lipitor) 10 mg PO DAILY [facility] Last Admin: 06/05/17 09:56 Dose: 10 mg Clopidogrel Bisulfate (Plavix) 75 mg PO DAILY [facility] Last Admin: 06/05/17 09:58 Dose: 75 mg Docusate Sodium (Colace) 100 mg PO DAILY PRN PRN Reason: Constipation Last Admin: 06/04/17 09:40 Dose: 100 mg Docusate Sodium (Colace) 100 mg PO BID [facility] Enoxaparin Sodium (Lovenox) 40 mg SC DAILY [facility] PRN Reason: Protocol Last Admin: 06/05/17 09:57 Dose: 40 mg Escitalopram Oxalate (Lexapro) 5 mg PO HS [facility] Last Admin: 06/04/17 21:41 Dose: 5 mg Famotidine (Pepcid) 20 mg PO Q12 [facility] Last Admin: 06/05/17 09:58 Dose: 20 mg Folic Acid (Folic Acid) 1 mg PO DAILY [facility] Last Admin: 06/05/17 09:55 Dose: 1 mg Hydroxychloroquine Sulfate (Plaquenil) 200 mg PO BID [facility] PRN Reason: Protocol Last Admin: 06/05/17 09:58 Dose: 200 mg Hyoscyamine (Levsin) 0.125 mg PO HS PRN PRN Reason: Indigestion Loratadine (Claritin) 10 mg PO DAILY [facility] Last Admin: 06/05/17 09:54 Dose: 10 mg Methotrexate (Methotrexate) 2.5 mg PO QWK [facility] PRN Reason: Protocol Methylprednisolone (Solu-Medrol) 40 mg IVP Q12 [facility] Last Admin: 06/05/17 09:59 Dose: 40 mg Mirtazapine (Remeron) 30 mg PO HS [facility] Last Admin: 06/04/17 21:41 Dose: 30 mg Naproxen (Naprosyn Tab) 250 mg PO BID [facility] Last Admin: 06/05/17 09:57 Dose: 250 mg - Labs Labs: 06/03/17 05:30 06/03/17 05:30 - Constitutional Appears: No Acute Distress - Head Exam Head Exam: NORMAL INSPECTION - Eye Exam Eye Exam: PERRL - ENT Exam ENT Exam: Normal Exam - Neck Exam Neck Exam: Normal Inspection - Respiratory Exam Respiratory Exam: Decreased Breath Sounds (at bases) - Cardiovascular Exam Cardiovascular Exam: REGULAR RHYTHM - GI/Abdominal Exam GI & Abdominal Exam: Soft, Normal Bowel Sounds - Extremities Exam Extremities Exam: Normal Inspection - Back Exam Back Exam: NORMAL INSPECTION - Neurological Exam Neurological Exam: Alert, CN II-XII Intact, Oriented x3 - Psychiatric Exam Psychiatric exam: Anxious - Skin Skin Exam: Normal Color, Warm Assessment and Plan (1) COPD exacerbation Status: Acute (2) Asthma exacerbation Status: Acute (3) OLIVIA (obstructive sleep apnea) Status: Chronic (4) Pulmonary artery hypertension Status: Chronic
[2017-06-05 16:21] VITALS: BP 113/63; PULSE 68; TEMP 98; O2SAT 100
--- NOTE | 2017-06-05 16:21 | CP.PCM.DIS ---
Provider - Provider Date of Admission: 06/02/17 15:22 Attending physician: Zackary Marino MD Consults: Dr Martha Rick Time Spent in preparation of Discharge (in minutes): 25 Diagnosis - Discharge Diagnosis (1) COPD exacerbation Status: Acute Priority: High Comment: continue Duoneb nebulizer QID. SoluMedrol 40mg IV q 12hrs. Albuterol nebulizer q 4hrs prn for SOB/wheezing (2) Gait instability Status: Chronic Priority: Medium Comment: continue PT/OT in ALVAREZ (3) Pulmonary artery hypertension Status: Chronic Priority: High Comment: continue management of COPD and Sleep Apnea (4) CAD (coronary artery disease) Status: Chronic Comment: continue ASA, Plavix, BB and statin (5) Connective tissue disease Status: Chronic Comment: history of both SLE and RA. continue Hydroxychloroquine and Methotrexate Hospital Course - Lab Results Lab Results: Most Recent Lab Values WBC 7.7 K/uL (4.8-10.8) 06/03/17 05:30 RBC 3.27 Mil/uL (3.80-5.20) L 06/03/17 05:30 Hgb 10.0 g/dL (12.0-16.0) L 06/03/17 05:30 Hct 32.5 % (34.0-47.0) L 06/03/17 05:30 MCV 99.2 fl (81.0-99.0) H 06/03/17 05:30 MCH 30.5 pg (27.0-31.0) 06/03/17 05:30 MCHC 30.7 g/dL (33.0-37.0) L 06/03/17 05:30 RDW 25.1 % (11.5-14.5) H 06/03/17 05:30 Plt Count 194 K/uL (130-400) 06/03/17 05:30 MPV 11.1 fl (7.2-11.7) 06/03/17 05:30 Neut % (Auto) 85.8 % (50.0-75.0) H 06/03/17 05:30 Lymph % (Auto) 5.1 % (20.0-40.0) L 06/03/17 05:30 [place] % (Auto) 8.9 % (0.0-10.0) 06/03/17 05:30 Eos % (Auto) 0.0 % (0.0-4.0) 06/03/17 05:30 Baso % (Auto) 0.2 % (0.0-2.0) 06/03/17 05:30 Neut # (Auto) 6.6 K/uL (1.8-7.0) 06/03/17 05:30 Lymph # (Auto) 0.4 K/uL (1.0-4.3) L 06/03/17 05:30 [place] # (Auto) 0.7 K/uL (0.0-0.8) 06/03/17 05:30 Eos # (Auto) 0.0 K/uL (0.0-0.7) 06/03/17 05:30 Baso # (Auto) 0.0 K/uL (0.0-0.2) 06/03/17 05:30 Neutrophils % (Manual) 87 % (42-75) H 06/03/17 05:30 Lymphocytes % (Manual) 6 % (20-50) L 06/03/17 05:30 Monocytes % (Manual) 7 % (0-10) 06/03/17 05:30 Nucleated RBC % 2 % (0-0) H 06/03/17 05:30 Platelet Estimate Normal (NORMAL) 06/03/17 05:30 Large Platelets Present 06/03/17 05:30 Hypochromasia (manual) Slight 06/03/17 05:30 Poikilocytosis (manual Slight 06/03/17 05:30 Anisocytosis (manual) Slight 06/03/17 05:30 Macrocytosis (manual) Slight 06/03/17 05:30 Ovalocytes Slight 06/03/17 05:30 pCO2 54 mm/Hg (35-45) H 06/02/17 07:53 pO2 75 mm/Hg (80-100) L 06/02/17 07:53 HCO3 30.0 mmol/L (21-28) H 06/02/17 07:53 ABG pH 7.39 (7.35-7.45) 06/02/17 07:53 ABG Total CO2 34.4 mmol/L (22-28) H 06/02/17 07:53 ABG O2 Saturation 98.8 % (95-98) H 06/02/17 07:53 ABG O2 Content 13.3 ML/dL (15-23) L 06/02/17 07:53 ABG Base Excess 6.6 mmol/L (-2.0-3.0) H 06/02/17 07:53 ABG Hemoglobin 10.0 g/dL (11.7-17.4) L 06/02/17 07:53 ABG Carboxyhemoglobin 2.9 % (0.5-1.5) H 06/02/17 07:53 POC ABG HHb (Measured) 1.1 % (0.0-5.0) 06/02/17 07:53 ABG Methemoglobin 1.9 % (0.0-3.0) 06/02/17 07:53 ABG O2 Capacity 13.5 mL/dL (16-24) L 06/02/17 07:53 Gio Test Yes 06/02/17 07:53 A-a O2 Difference 71.0 mm/Hg 06/02/17 07:53 Hgb O2 Saturation 94.1 % (95.0-98.0) L 06/02/17 07:53 FiO2 30.0 % 06/02/17 07:53 Blood Gas Comments 3l/m nc,rr 06/02/17 07:53 Crit Value Read Back Ny 06/02/17 07:53 Sodium 146 mmol/l (132-148) 06/03/17 05:30 Potassium 4.4 MMOL/L (3.6-5.0) 06/03/17 05:30 Chloride 101 mmol/L (98-107) 06/03/17 05:30 Carbon Dioxide 34 mmol/L (22-30) H 06/03/17 05:30 Anion Gap 15 (10-20) 06/03/17 05:30 BUN 25 mg/dl (7-17) H 06/03/17 05:30 Creatinine 1.0 mg/dl (0.7-1.2) 06/03/17 05:30 Est GFR ( Amer) > 60 06/03/17 05:30 Est GFR (Non-Af Amer) 56 06/03/17 05:30 Random Glucose 144 mg/dL (65-105) H 06/03/17 05:30 Calcium 8.6 mg/dL (8.4-10.2) 06/03/17 05:30 Total Bilirubin 1.0 mg/dl (0.2-1.3) 06/02/17 08:05 AST 34 U/L (14-36) 06/02/17 08:05 ALT 48 U/L (9-52) 06/02/17 08:05 Alkaline Phosphatase 162 U/L (38-126) H 06/02/17 08:05 Total Protein 6.8 G/DL (6.3-8.2) 06/02/17 08:05 Albumin 3.7 g/dL (3.5-5.0) 06/02/17 08:05 Globulin 3.1 gm/dL (2.2-3.9) 06/02/17 08:05 Albumin/Globulin Ratio 1.2 (1.0-2.1) 06/02/17 08:05 - Hospital Course Hospital Course: 61 yo female with history of SLE, RA, Pulmonary HTN, COPD/Asthma on home oxygen , CAD and CVA brought back because of SOB associated with coughing. Patient also fell 2 days ago because of severe weakness of both legs sustaining injury on left forehead. There was no LOC. She was restarted on IV SoluMedrol and bronchodilators gradually did better. She and her sister agreed that she be placed on ALVAREZ to improved her strength. Patient was accepted in [place] and was discharged in stable condition. Discharge Exam - Head Exam Head Exam: NORMAL INSPECTION - Eye Exam Eye Exam: absent: Scleral icterus - ENT Exam ENT Exam: Mucous Membranes Moist - Respiratory Exam Respiratory Exam: absent: Rales, Rhonchi, Wheezes, Respiratory Distress - Cardiovascular Exam Cardiovascular Exam: REGULAR RHYTHM, +S1, +S2 - GI/Abdominal Exam GI & Abdominal Exam: Soft. absent: Tenderness - Rectal Exam Rectal Exam: Deferred - Neurological Exam Neurological exam: Alert, Oriented x3 - Psychiatric Exam Psychiatric exam: Normal Affect - Skin Skin Exam: Dry, Intact Discharge Plan - Follow Up Plan Condition: FAIR Disposition: REHAB FACILITY/REHAB UNIT
== END 2017-06-05 17:13 | DRG 88 ==
LOC: H.ER 07:43 → H.ERHOLD 10:33 → H.TEL 11:49 → OBSVTOIN 15:22
PROC: 5A09457 Assistance with Respiratory Ventilation, 24-96 Consecutive Hours, Continuous Positive Airway Pressure (ICD-10-PCS; principal; 2017-06-03)
DX: J44.1 Chronic obstructive pulmonary disease with (acute) exacerbation (principal); I27.21 Secondary pulmonary arterial hypertension; E66.2 Morbid (severe) obesity with alveolar hypoventilation; I11.0 Hypertensive heart disease with heart failure; I50.9 Heart failure, unspecified; J45.901 Unspecified asthma with (acute) exacerbation; M32.9 Systemic lupus erythematosus, unspecified; E86.0 Dehydration; E78.00 Pure hypercholesterolemia, unspecified; F32.9 Major depressive disorder, single episode, unspecified; Z86.73 Personal history of transient ischemic attack (TIA), and cerebral infarction without residual deficits; I25.10 Atherosclerotic heart disease of native coronary artery without angina pectoris; M06.9 Rheumatoid arthritis, unspecified; M81.0 Age-related osteoporosis without current pathological fracture; S09.90XA Unspecified injury of head, initial encounter; W01.0XXA Fall on same level from slipping, tripping and stumbling without subsequent striking against object, initial encounter; Z79.02 Long term (current) use of antithrombotics/antiplatelets; Z90.49 Acquired absence of other specified parts of digestive tract; Z95.5 Presence of coronary angioplasty implant and graft; Z99.81 Dependence on supplemental oxygen; D64.9 Anemia, unspecified; F41.9 Anxiety disorder, unspecified; F45.9 Somatoform disorder, unspecified; M54.9 Dorsalgia, unspecified; G89.29 Other chronic pain; K29.70 Gastritis, unspecified, without bleeding; M19.90 Unspecified osteoarthritis, unspecified site; Z79.899 Other long term (current) drug therapy; M25.522 Pain in left elbow; R26.9 Unspecified abnormalities of gait and mobility

== ENCOUNTER 2017-06-26 20:27 | Inpatient (IN) | payer MEDICAID ==
--- NOTE | 2017-06-26 20:44 | ED PDOC ---
HPI: SOB/CHF/COPD Time Seen by Provider: 06/26/17 20:38 Chief Complaint (Nursing): Shortness Of Breath Chief Complaint (Provider): Dyspnea History Per: Patient History/Exam Limitations: no limitations Onset/Duration Of Symptoms: Days (3) Current Symptoms Are (Timing): Still Present Additional Complaint(s): Pt. with dyspnea, cough, nasal congestion. No chest pain, leg pain. Abd pain with no stool for 3 days. Nausea, vomit, nonbloody. No back pain. No headaches, dizziness. No dysuria. Had same few weeks ago and was admitted. Dc to [facility] and came home Sunday. No fever. Past Medical History Reviewed: Historical Data, Nursing Documentation, Vital Signs Vital Signs: Last Vital Signs Temp 99.1 F 06/26/17 20:32 Pulse 60 06/26/17 22:45 Resp 19 06/26/17 22:45 BP 135/74 06/26/17 22:45 Pulse Ox 98 06/26/17 22:45 - Medical History PMH: Anemia, Anxiety, Arthritis, Asthma, Back Problems (chronic back pain), CAD , CHF, COPD, CVA (x3 with left weakness), Depression, Diverticulitis, Gastritis , HTN, Hypercholesterolemia, Osteoporosis, Peripheral Edema, Rheumatoid Arthritis, Sleep Apnea, TIA Denies: HIV, Chronic Kidney Disease, Seizures (denies) - Surgical History Surgical History: [place], [place] [facility] [place] [facility] [place] Denies: Cholecystectomy - Family History Family History: States: Unknown Family Hx - Living Arrangements Living Arrangements: With Family - Social History Current smoker - smoking cessation education provided: No Alcohol: None Drugs: Denies - Immunization History Hx Influenza Vaccination: Yes - Home Medications Home Medications: Ambulatory Orders Medication Instructions Recorded Alprazolam [Xanax] 0.5 mg PO HS 11/14/16 Meloxicam [Mobic] 7.5 mg PO HS 03/25/17 Polyethylene Glycol/Polyvinyl 1 drop OP BID 03/25/17 [Artificial Tears] Clopidogrel [Plavix] 75 mg PO DAILY #30 tab 04/08/17 Docusate Sodium [Stool Softener] 100 mg PO DAILY PRN #30 tablet 04/08/17 Escitalopram [Lexapro] 5 mg PO HS #30 tab 04/08/17 Folic Acid 1 mg PO DAILY #30 tab 04/08/17 Furosemide [Lasix] 20 mg PO QOTHERDAY #30 tablet 04/08/17 Hydroxychloroquine Sulfate 200 mg PO BID #60 tablet 04/08/17 [Plaquenil] Hyoscyamine [Levsin] 1 tab PO HS PRN #30 tab 04/08/17 Methotrexate 2.5 mg PO QWK #4 tab 04/08/17 Mirtazapine [Remeron] 30 mg PO HS #30 tab 04/08/17 Naloxegol Oxalate [Movantik] 25 mg PO DAILY #15 tablet 04/08/17 Ranitidine HCl [Zantac] 150 mg PO DAILY #30 tablet 04/08/17 Tetrahydrz/Dext 70/Peg 400/Pvp [Hm 1 drop OP BID #30 drops 04/08/17 Eye Drops Advanced Relief] rOPINIRole [Requip] 1 mg PO HS #30 tab 04/08/17 Famotidine [Pepcid] 20 mg PO Q12 #20 tab 05/05/17 Atorvastatin [Lipitor] 10 mg PO DAILY 06/02/17 Loratadine [Claritin] 10 mg PO DAILY 06/02/17 - Allergies Allergies/Adverse Reactions: Allergies Allergy/AdvReac Type Severity Reaction Status Date / Time No Known Allergies Allergy Verified 06/02/17 07:49 Review of Systems ROS Statement: Except As Marked, All Systems Reviewed And Found Negative Constitutional: Positive for: Weakness Respiratory: Positive for: Cough, Shortness of Breath Gastrointestinal: Positive for: Nausea, Vomiting, Abdominal Pain, Constipation Neurological: Positive for: Weakness Physical Exam - Reviewed Nursing Documentation Reviewed: Yes Vital Signs Reviewed: Yes - Physical Exam Appears: Positive for: Uncomfortable Head Exam: Positive for: ATRAUMATIC, NORMAL INSPECTION, NORMOCEPHALIC Skin: Positive for: Normal Color, Warm, DRY Eye Exam: Positive for: EOMI, Normal appearance, PERRL ENT: Positive for: Nasal Congestion Neck: Positive for: Normal, Painless ROM, Supple Cardiovascular/Chest: Positive for: Regular Rate, Rhythm Respiratory: Positive for: Decreased Breath Sounds, Wheezing (b/l) Gastrointestinal/Abdominal: Positive for: Soft, Tenderness (diffuse) Back: Positive for: Normal Inspection. Negative for: L CVA Tenderness, R CVA Tenderness Extremity: Positive for: Normal ROM, Pedal Edema (trace bl ). Negative for: Tenderness, Calf Tenderness Neurologic/Psych: Positive for: Alert, Oriented, Motor/Sensory Deficits (4/5 all extremities) - Laboratory Results Result Diagrams: 06/26/17 21:14 06/26/17 21:14 Interpretation Of Abn Labs: elevated probnp - ECG ECG: Positive for: Interpreted By Me, Viewed By Me ECG Rhythm: Positive for: Nonspecific Changes O2 Sat by Pulse Oximetry: 95 Pulse Ox Interpretation: Normal - Radiology X-Ray: Interpreted by Me, Viewed By Me X-Ray Interpretation: Cardiomegaly - Progress ED Course And Treament: 2341: Stable. AAOx3. Pain free. Spoke with Dr. Bonilla. Will admit chf and copd. He will fu on ct abd/pelvis. Disposition - Clinical Impression Clinical Impression: CHF exacerbation, COPD exacerbation - Patient ED Disposition Is Patient to be Admitted: Yes Counseled Patient/Family Regarding: Studies Performed, Diagnosis - Disposition Disposition Time: 23:42 Condition: FAIR - Pt Status Changed To: Hospital Disposition Of: Inpatient - Admit Certification Admit to Inpatient:: After my assessment, the patient will require hospitalization for at least two midnights. This is because of the severity of symptoms shown, intensity of services needed, and/or the medical risk in this patient being treated as an outpatient. - POA Present On Arrival: None
[2017-06-26] MEDS ORDERED: Albuterol-Ipratrop 3 mg / 0.5 (3 ml) UD IH STA ×2 (20:45→20:48)
[2017-06-26] MEDS ORDERED: Albuterol-Ipratrop 3 mg / 0.5 (3 ml) UD INH STA (20:45)
[2017-06-26] MEDS ORDERED: Sodium Chloride 0.9% 500 ML IV SCH (20:45)
[2017-06-26] MEDS ORDERED: Albuterol-Ipratrop 3 mg / 0.5 (3 ml) UD ONE (20:46)
[2017-06-26] MEDS ORDERED: Iohexol 240 (50 ml) PO ONE (20:55)
[2017-06-26 21:28] LABS: BASO # 0.2 K/uL (0.0-0.2); BASO % 1.8 % (0.0-2.0); EOS # 0.1 K/uL (0.0-0.7); EOS % 1.3 % (0.0-4.0); LYMPH # 1.5 K/uL (1.0-4.3); MEAN CELL VOLUME 96.9 fl (81.0-99.0); MEAN CORPUSCULAR HEMOGLOBIN 30.4 pg (27.0-31.0); MEAN CORPUSCULAR HGB CONC 31.4 g/dL (33.0-37.0); MEAN PLATELET VOLUME 9.9 fl (7.2-11.7); MONO # 1.7 K/uL (0.0-0.8); MONO % 17.7 % (0.0-10.0); NEUT % 63.2 % (50.0-75.0); NRBC % 1.7 % (0.0-0.0); RBC 3.29 Mil/uL (3.80-5.20); RED CELL DISTRIBUTION WIDTH 24.4 % (11.5-14.5); WHITE BLOOD COUNT 9.5 K/uL (4.8-10.8)
[2017-06-26 21:31] LABS: ABG ALLEN TEST YES; ARTERIAL BLOOD GAS HCO3 26.5 mmol/L (21-28); ARTERIAL BLOOD GAS O2 SAT 95.7 % (95-98); ARTERIAL BLOOD GAS PCO2 43 mm/Hg (35-45); ARTERIAL BLOOD GAS PH 7.41 (7.35-7.45); ARTERIAL BLOOD GAS PO2 62 mm/Hg (80-100); ARTERIAL BLOOD GAS TCO2 28.6 mmol/L (22-28)
[2017-06-26] MEDS ORDERED: Iohexol 240 (50 ml) ONE (21:35)
[2017-06-26 21:39] LABS: INR 1.3 (0.9-1.2); PARTIAL THROMBOPLASTIN TIME 16.6 Seconds (25.6-37.1); PROTHROMBIN TIME 14.9 Seconds (9.8-13.1)
[2017-06-26 21:43] LABS: TROPONIN I 0.098 ng/mL (0.00-0.120)
[2017-06-26 21:48] LABS: ALB/GLOB RATIO 1.1 (1.0-2.1); ALBUMIN 3.8 g/dL (3.5-5.0); CALCIUM 9.2 mg/dL (8.4-10.2)
[2017-06-26] MEDS ORDERED: Magnesium Sulfate 2 gm/50 ml 2 GM/50 ML BAG ONE (23:07)
[2017-06-26] MEDS ORDERED: Magnesium Sulfate 2 gm/50 ml 2 GM/50 ML BAG IVPB ONE (23:20)
--- NOTE | 2017-06-26 23:52 | CP.PCM.HP ---
History of Present Illness - History of Present Illness History of Present Illness: CC: SOB, abd discomfort HPI: This is a 61 y/o female with multiple recent admissions for cardiac/ respiratory issues. Her MHx is significant for asthma/COPD, HTN, HLD, RA/SLE, thrombocytopenia 2/2 asplenia, PAH, CAD/[place], and multiple CVAs in past with chronic left sided deficit and speech slurring. She was at [facility] [facility] since last discharge and returned home on Sunday. She is brought in today with worsening SOB. Denies fever, cough. Denies CP. Does c/o abd pain with some nausea and nb/nb vomiting. States she has not been able to have a full BM in several days. Patient also notes decreased appetite. Nothing has made her symptoms better. PMD: Dr. Albright Twx Operator: Dr. 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, CAD/[place] , HTN, Sleep apnea on CPAP, asthma/COPD on home O2 (still not using), HLD rheumatoid arthritis, SLE, osteoporosis, thrombocytopenia SHx: Carpal tunnel surgery, C- sections x 2, bunion removal,splecectomy Allergies: NKDA Medications: Per med rec Family Hx: Mother had HTN, DM and CABG, Father had CVA HTN and DM Social Hx: Back at home now after being at , no tobacco, no EtOH Surrogate: Daughter, info on chart Present on Admission - Present on Admission Any Indicators Present on Admission: No Past Patient History - Infectious Disease Hx of Infectious Diseases: None - Tetanus Immunizations Tetanus Immunization: Unknown - Past Medical History & Family History Past Medical History?: Yes - Past Social History Alcohol: None Drugs: Denies - CARDIAC Hx Congestive Heart Failure: Yes Hx Hypercholesterolemia: Yes Hx Hypertension: Yes Hx Peripheral Edema: Yes - PULMONARY Hx Asthma: Yes Hx Chronic Obstructive Pulmonary Disease (COPD): Yes Hx Sleep Apnea: Yes - NEUROLOGICAL Hx Seizures: No (denies) Hx Transient Ischemic Attacks (TIA): Yes - HEENT Hx HEENT Problems: No - RENAL Hx Chronic Kidney Disease: No - ENDOCRINE/METABOLIC Hx Endocrine Disorders: No - HEMATOLOGICAL/ONCOLOGICAL Hx Anemia: Yes Hx Human Immunodeficiency Virus (HIV): No - INTEGUMENTARY Hx Dermatological Problems: No - MUSCULOSKELETAL/RHEUMATOLOGICAL Hx Arthritis: Yes Hx Osteoporosis: Yes Hx Rheumatoid Arthritis: Yes - GASTROINTESTINAL Hx Diverticulitis: Yes Hx Gastritis: Yes - GENITOURINARY/GYNECOLOGICAL Hx Genitourinary Disorders: Yes - PSYCHIATRIC Hx Anxiety: Yes Hx Depression: Yes - SURGICAL HISTORY Hx Appendectomy: Yes Hx Cholecystectomy: No Hx Coronary Stent: Yes ([facility]) - ANESTHESIA Hx Anesthesia: Yes Hx Anesthesia Reactions: No Hx Malignant Hyperthermia: No Meds Allergies/Adverse Reactions: Allergies Allergy/AdvReac Type Severity Reaction Status Date / Time No Known Allergies Allergy Verified 06/26/17 23:58 Physical Exam - Constitutional Appears: No Acute Distress - Head Exam Head Exam: ATRAUMATIC, NORMOCEPHALIC - Eye Exam Eye Exam: EOMI, PERRL - ENT Exam ENT Exam: Mucous Membranes Moist - Neck Exam Neck exam: Positive for: Full Rom - Respiratory Exam Respiratory Exam: Decreased Breath Sounds, Rhonchi, NORMAL BREATHING PATTERN - Cardiovascular Exam Cardiovascular Exam: REGULAR RHYTHM, +S1, +S2 - GI/Abdominal Exam GI & Abdominal Exam: Normal Bowel Sounds, Soft - Extremities Exam Extremities exam: Positive for: full ROM, normal inspection Additional comments: some redness in b/l LE, but not warm or tender - Neurological Exam Neurological exam: Alert, CN II-XII Intact, Oriented x3 - Psychiatric Exam Psychiatric exam: Normal Affect, Normal Mood - Skin Skin Exam: Dry, Warm Results - Vital Signs Recent Vital Signs: Last Vital Signs Temp 99.1 F 06/26/17 20:32 Pulse 60 06/26/17 22:45 Resp 19 06/26/17 22:45 BP 135/74 06/26/17 22:45 Pulse Ox 95 06/26/17 23:42 - Labs Result Diagrams: 06/26/17 21:14 06/26/17 21:14 Labs: Laboratory Results - last 24 hr 06/26/17 06/26/17 06/26/17 21:00 21:14 21:14 WBC 9.5 RBC 3.29 L Hgb 10.0 L Hct 31.9 L MCV 96.9 D MCH 30.4 MCHC 31.4 L RDW 24.4 H Plt Count 135 MPV 9.9 Neut % (Auto) 63.2 Lymph % (Auto) 16.0 L Oliver % (Auto) 17.7 H Eos % (Auto) 1.3 Baso % (Auto) 1.8 Neut # (Auto) 6.0 Lymph # (Auto) 1.5 Oliver # (Auto) 1.7 H Eos # (Auto) 0.1 Baso # (Auto) 0.2 PT INR APTT pCO2 43 pO2 62 L HCO3 26.5 ABG pH 7.41 ABG Total CO2 28.6 H ABG O2 Saturation 95.7 ABG Base Excess 2.2 Gio Test Yes ABG Potassium 3.7 A-a O2 Difference 112.0 Sodium 140.0 143 Chloride 110.0 H 105 Glucose 104 Lactate 1.2 FiO2 32.0 Potassium 4.7 Carbon Dioxide 27 Anion Gap 16 BUN 26 H Creatinine 1.3 H Est GFR ( Amer) 50 Est GFR (Non-Af Amer) 41 Random Glucose 96 Calcium 9.2 Phosphorus 3.7 Magnesium 1.8 Total Bilirubin 1.3 AST 49 H D ALT 38 Alkaline Phosphatase 146 H Troponin I 0.0980 NT-Pro-B Natriuret Pep 4620 H Total Protein 7.4 Albumin 3.8 Globulin 3.6 Albumin/Globulin Ratio 1.1 Arterial Blood Potassium 3.7 06/26/17 21:14 WBC RBC Hgb Hct MCV MCH MCHC RDW Plt Count MPV Neut % (Auto) Lymph % (Auto) Oliver % (Auto) Eos % (Auto) Baso % (Auto) Neut # (Auto) Lymph # (Auto) Oliver # (Auto) Eos # (Auto) Baso # (Auto) PT 14.9 H INR 1.3 H APTT 16.6 L pCO2 pO2 HCO3 ABG pH ABG Total CO2 ABG O2 Saturation ABG Base Excess Gio Test ABG Potassium A-a O2 Difference Sodium Chloride Glucose Lactate FiO2 Potassium Carbon Dioxide Anion Gap BUN Creatinine Est GFR ( Amer) Est GFR (Non-Af Amer) Random Glucose Calcium Phosphorus Magnesium Total Bilirubin AST ALT Alkaline Phosphatase Troponin I NT-Pro-B Natriuret Pep Total Protein Albumin Globulin Albumin/Globulin Ratio Arterial Blood Potassium - EKG Data EKG Interpreted by: Myself EKG shows normal: Sinus rhythm Rate: Bradycardia - EKG Data EKG comments: No acute findings - Imaging and Cardiology Chest x-ray Status: Image reviewed by me (appears to have vol overload/hilar fullness) Assessment & Plan (1) Acute exacerbation of CHF (congestive heart failure) Assessment and Plan: 61 y/o female with numerous medical conditions, presenting with SOB; likely largely due to exacerbation of CHF. 1) Acute on chronic CHF, likely R sided, likely related to PAH; CAD -Admit tele -Continue diuresis with Lasix, 40 mg IV daily ordered, may need to increase dose -Serial troponins -Cont plavix, statin, and other medications for CAD 2) HTN -- continue home medications -- hold metoprolol for persistent bradycardia 3) COPD -- current SOB appears more likely due to CHF -Rec'd 125 mg of solumedrol in ER; will hold on further solumedrol unless apparent that COPD is significantly contributing to SOB; also will hold off on Abx for now -Continue qid prn duonebs 4) RA and SLE -Continue folic acid, confirm if patient is actually on plaquenil vs methotrexate 5) Constipation -- may be cause of abd pain -CT pending -Cont home bowel regimen including miralax; will add dulcolax 6) DVT PPx -- will use SCDs only given intermittent low Plt due to asplenia and prior Hx of GIB Status: Acute (2) Abdominal pain Status: Acute (3) Abdominal pain Status: Acute (4) Pulmonary artery hypertension Status: Chronic Priority: High (5) Bradycardia Status: Acute (6) COPD (chronic obstructive pulmonary disease) Status: Acute (7) Rheumatoid arthritis Status: Chronic (8) SLE (systemic lupus erythematosus) Status: Chronic Priority: Medium (9) DVT prophylaxis Status: Acute
[2017-06-26] MEDS ORDERED: DOCUSATE SODIUM 100 MG PO PRN (23:53)
[2017-06-26] MEDS ORDERED: Albuterol-Ipratrop 3 mg / 0.5 (3 ml) UD INH PRN (23:59)
--- NOTE | 2017-06-27 00:12 | CT ---
EXAM: CT Abdomen and Pelvis With Intravenous Contrast EXAM DATE/TIME: 06/26/2017 8:55 PM CLINICAL HISTORY: 61 years old, female; Pain; Abdominal pain; Generalized; Prior surgery; Surgery date: 6+ months; Surgery type: Appendectomy . Coronary stent; Additional info: Abd pain TECHNIQUE: Axial computed tomography images of the abdomen and pelvis with intravenous contrast. All CT scans at this facility use one or more dose reduction techniques, viz.: automated exposure control; ma/kV adjustment per patient size (including targeted exams where dose is matched to indication; i.e. head); or iterative reconstruction technique. Coronal and sagittal reformatted images were created and reviewed. COMPARISON: Prior CT abdomen and pelvis of 05/10/2017 FINDINGS: LUNG BASES: No significant abnormality seen. PLEURAL SPACE: Small bilateral pleural effusions, decreased in size compared to the prior exam. ABDOMEN: LIVER: No acute abnormality of the liver identified. GALLBLADDER AND BILE DUCTS: Small amount of pericholecystic fluid, similar to the prior exam. No radioopaque gallstones are seen. No evidence of significant pericholecystic inflammatory changes. PANCREAS: No CT evidence of acute pancreatitis. SPLEEN: Spleen is surgically absent. ADRENALS: No acute abnormality of the adrenal glands identified. KIDNEYS AND URETERS: Bilateral perinephric stranding, a nonspecific finding. No evidence of hydroureteronephrosis. STOMACH AND BOWEL: Colonic diverticulosis, with no evidence of acute diverticulitis. Otherwise, no significant abnormality of the bowel is identified. No evidence of bowel obstruction. APPENDIX: Appendix is seen, and is within normal limits in appearance. PELVIS: BLADDER: Mild, diffuse thickening of the bladder wall, a new finding since the prior exam. REPRODUCTIVE:No acute abnormality of the reproductive organs is seen. No acute abnormality of the uterus identified. No evidence of large adnexal masses. ABDOMEN and PELVIS: INTRAPERITONEAL SPACE: Small amount of pelvic and abdominal free fluid, similar to the prior exam. No evidence of free air. RETROPERITONEAL SPACE: Small amount of diffuse fluid in the retroperitoneal space, greater in the pelvis, similar to the prior exam. No evidence of acute retroperitoneal hemorrhage. BONES/JOINTS: Stable appearance of extensive chronic vertebral compression fractures of the lower thoracic and upper lumbar spine, associated with marked degenerative disc disease, including vacuum disc phenomenon. Multiple, bilateral old/healed rib fractures. SOFT TISSUES: Diffuse, mild subcutaneous edema/anasarca. Postoperative changes involving the anterior pelvic wall, unchanged in appearance. VASCULATURE: IVC filter in place. LYMPH NODES: No evidence of diffuse lymphadenopathy. IMPRESSION: - Compared to a prior CT of 05/10/2017, development of mild bladder wall thickening. This is a nonspecific finding, but can be seen with cystitis. Recommend clinical correlation. - Otherwise stable findings. - Small amount of pericholecystic fluid. This could be secondary to the generalized abdominal free fluid, but if there is clinical concern for acute cholecystitis, recommend right upper quadrant ultrasound for further evaluation. - Small amount of retroperitoneal fluid. - Small amount of pelvic and abdominal free fluid. - Small bilateral pleural effusions. - See above for remaining findings.
[2017-06-27 06:13] LABS: HEMOGLOBIN 9.6 g/dL (12.0-16.0); MEAN CELL VOLUME 96.5 fl (81.0-99.0); MEAN CORPUSCULAR HEMOGLOBIN 29.9 pg (27.0-31.0); RBC 3.22 Mil/uL (3.80-5.20); RED CELL DISTRIBUTION WIDTH 23.7 % (11.5-14.5); WHITE BLOOD COUNT 5.1 K/uL (4.8-10.8)
[2017-06-27] MEDS ORDERED: Promethazine DM 6.25 mg-15 mg/5 ml Syrup PO PRN (08:13)
[2017-06-27] MEDS: Artificial Tears Opht Soln OD SCH ×2 (08:51→18:06)
[2017-06-27] MEDS: Metoprolol Succinate 25 mg XL Tab PO SCH (08:54)
[2017-06-27] MEDS: Pantoprazole 40 mg EC Tab PO SCH (08:54)
--- NOTE | 2017-06-27 11:11 | RAD ---
HISTORY: Sepsis Patient COMPARISON: 06/02/2017. FINDINGS: LUNGS: The lungs are clear. PLEURA: No significant pleural effusion identified, no pneumothorax apparent. CARDIOVASCULAR: The cardiomediastinal silhouette is stable. OSSEOUS STRUCTURES: Within normal limits for the patient's age. VISUALIZED UPPER ABDOMEN: Normal. OTHER FINDINGS: None. IMPRESSION: No acute findings.
--- NOTE | 2017-06-27 11:27 | CARD ---
APPROVED REPORT EKG Measurement Heart [id number] [id number] <Conclusion> Sinus bradycardia Nonspecific T wave abnormality Abnormal ECG
--- NOTE | 2017-06-27 12:25 | CP.PCM.PN ---
Subjective - Date & Time of Evaluation Date of Evaluation: 06/27/17 Time of Evaluation: 10:00 - Subjective Subjective: Patient was seen and examined at bedside. She relates that her breathing is a little easier today after the Lasix. However she is intermittently still short of breath. Hemodynamically stable, in no apparent distress. Denies chest pain, headache, weakness, nausea, vomiting, or diarrhea. Objective - Vital Signs/Intake and Output Vital Signs (last 24 hours): Temp Pulse Resp BP Pulse Ox 98.4 F 64 18 116/71 99 06/27/17 10:56 06/27/17 10:56 06/27/17 10:56 06/27/17 10:56 06/27/17 10:56 - Medications Medications: Current Medications Acetaminophen (Tylenol 325mg Tab) 650 mg PO Q6 PRN PRN Reason: Pain, Mild (1-3) Albuterol/Ipratropium (Duoneb 3 Mg/0.5 Mg (3 Ml) Ud) 3 ml INH RQ6 PRN PRN Reason: Shortness of Breath Alprazolam (Xanax) 0.5 mg PO HS [facility] Artificial Tears (Artificial Tears) 1 drop OD BID [facility] Last Admin: 06/27/17 08:51 Dose: 1 drop Atorvastatin Calcium (Lipitor) 10 mg PO DAILY [facility] Last Admin: 06/27/17 08:52 Dose: 10 mg Bisacodyl (Dulcolax) 10 mg UT DAILY PRN PRN Reason: Constipation Clopidogrel Bisulfate (Plavix) 75 mg PO DAILY [facility] Last Admin: 06/27/17 08:55 Dose: 75 mg Docusate Sodium (Colace) 100 mg PO DAILY PRN PRN Reason: Constipation Escitalopram Oxalate (Lexapro) 5 mg PO HS [facility] Famotidine (Pepcid) 20 mg PO Q12 [facility] Last Admin: 06/27/17 08:55 Dose: 20 mg Folic Acid (Folic Acid) 1 mg PO DAILY [facility] Last Admin: 06/27/17 08:52 Dose: 1 mg Furosemide (Lasix) 40 mg IVP DAILY [facility] Last Admin: 06/27/17 08:55 Dose: 40 mg Hydroxychloroquine Sulfate (Plaquenil) 200 mg PO DAILY [facility] PRN Reason: Protocol Last Admin: 06/27/17 08:53 Dose: 200 mg Loratadine (Claritin) 10 mg PO DAILY [facility] Last Admin: 06/27/17 08:51 Dose: 10 mg Methotrexate (Methotrexate) 2.5 mg PO QWK [facility] PRN Reason: Protocol Metoprolol Succinate (Toprol Xl) 25 mg PO DAILY [facility] Last Admin: 06/27/17 08:54 Dose: 25 mg Mirtazapine (Remeron) 30 mg PO HS [facility] Naproxen (Naprosyn Tab) 250 mg PO BID [facility] Last Admin: 06/27/17 08:52 Dose: 250 mg Pantoprazole Sodium (Protonix Ec Tab) 40 mg PO DAILY [facility] Last Admin: 06/27/17 08:54 Dose: 40 mg Pramipexole Dihydrochloride (Mirapex) 0.125 mg PO TID [facility] Prednisone (Prednisone Tab) 5 mg PO DAILY [facility] Last Admin: 06/27/17 08:53 Dose: 5 mg - Labs Labs: 06/27/17 05:45 06/27/17 05:45 PT 14.9 Seconds (9.8-13.1) H 06/26/17 21:14 INR 1.3 (0.9-1.2) H 06/26/17 21:14 APTT 16.6 Seconds (25.6-37.1) L 06/26/17 21:14 - Additional Findings Additional findings: Physical exam: Constitutional- cooperative, awake, alert Head- NCAT, PERRL Eye- PERRL, EOMI ENT- normal exam, MMM. Neck- normal inspection, supple, no JVD Respiratory- Bilateral rales in the bases, decreased breath sounds, scattered rhonchi, no wheezing. Cardiovascular- RRR, +S1, +S2 no MRG GI/Abdominal- normal bowel sounds, soft, no mass, no hsm Skin- warm, dry Extremities Exam- normal capillary refill, normal inspection Neurological Exam- alert, awake, oriented Psych- normal mood, normal affect Assessment and Plan - Assessment and Plan (Free Text) Plan: Assessment & Plan (1) Acute exacerbation of CHF (congestive heart failure) Assessment and Plan: 61 y/o female with numerous medical conditions, presenting with SOB; likely largely due to exacerbation of CHF. 1) Acute on chronic CHF, likely R sided, likely related to PAH; CAD -Admit tele -Continue diuresis with Lasix, 40 mg IV daily ordered - I&O -Serial troponins performed, within normal limits, pt has no chest pain -Cont plavix, statin, and other medications for CAD 2) HTN -- continue home medications -- hold metoprolol for persistent bradycardia 3) COPD -- current SOB appears more likely due to CHF -Rec'd 125 mg of solumedrol in ER; will hold on further solumedrol unless apparent that COPD is significantly contributing to SOB - No need for abx -Continue qid prn duonebs 4) RA and SLE -Continue folic acid, confirm if patient is actually on plaquenil vs methotrexate 5) Constipation -- may be cause of abd pain -CT pending -Cont home bowel regimen including miralax; will add dulcolax 6) DVT PPx -- will use SCDs only given intermittent low Plt due to asplenia and prior Hx of GIB Status: Acute (2) Abdominal pain Status: Acute (3) Abdominal pain Status: Acute (4) Pulmonary artery hypertension Status: Chronic Priority: High (5) Bradycardia Status: Acute (6) COPD (chronic obstructive pulmonary disease) Status: Acute (7) Rheumatoid arthritis Status: Chronic (8) SLE (systemic lupus erythematosus) Status: Chronic Priority: Medium (9) DVT prophylaxis Status: Acute
[2017-06-27] MEDS: ROPINIROLE 1MG TABLET PO SCH (22:24)
[2017-06-28 06:28] LABS: HEMOGLOBIN 9.5 g/dL (12.0-16.0); MEAN CELL VOLUME 97.5 fl (81.0-99.0); MEAN CORPUSCULAR HEMOGLOBIN 30.2 pg (27.0-31.0); RBC 3.14 Mil/uL (3.80-5.20); RED CELL DISTRIBUTION WIDTH 23.7 % (11.5-14.5); WHITE BLOOD COUNT 10.6 K/uL (4.8-10.8)
[2017-06-28 06:51] LABS: CALCIUM 8.4 mg/dL (8.4-10.2)
[2017-06-28] MEDS: Artificial Tears Opht Soln OD SCH ×2 (08:39→16:32)
[2017-06-28] MEDS: Pantoprazole 40 mg EC Tab PO SCH (08:41)
[2017-06-28] MEDS: Metoprolol Succinate 25 mg XL Tab PO SCH (08:48)
[2017-06-28] MEDS ORDERED: Magnesium Hydroxide Susp 30 ml UD PO PRN (10:41)
--- NOTE | 2017-06-28 13:55 | CP.PCM.PN ---
Subjective - Date & Time of Evaluation Date of Evaluation: 06/28/17 Time of Evaluation: 11:00 - Subjective Subjective: Patient seen and examined at bedside. She is complaining of mild generalized crampy abdominal pain. Still has not had bowel movement in 3 days or so. Otherwise patient relates that she has some intermittent shortness of breath at times but overall it is improving. No complaints of chest pain, chest tightness , headache, nausea, vomiting, or diarrhea Objective - Vital Signs/Intake and Output Vital Signs (last 24 hours): Temp Pulse Resp BP Pulse Ox 97.6 F 56 L 18 127/63 98 06/28/17 11:46 06/28/17 11:46 06/28/17 11:46 06/28/17 11:46 06/28/17 11:46 - Medications Medications: Current Medications Acetaminophen (Tylenol 325mg Tab) 650 mg PO Q6 PRN PRN Reason: Pain, Mild (1-3) Albuterol/Ipratropium (Duoneb 3 Mg/0.5 Mg (3 Ml) Ud) 3 ml INH RQ6 PRN PRN Reason: Shortness of Breath Alprazolam (Xanax) 0.5 mg PO HS [facility] Last Admin: 06/27/17 22:24 Dose: 0.5 mg Artificial Tears (Artificial Tears) 1 drop OD BID [facility] Last Admin: 06/28/17 08:39 Dose: 1 drop Atorvastatin Calcium (Lipitor) 10 mg PO DAILY [facility] Last Admin: 06/28/17 08:41 Dose: 10 mg Bisacodyl (Dulcolax) 10 mg [place] DAILY PRN PRN Reason: Constipation Clopidogrel Bisulfate (Plavix) 75 mg PO DAILY [facility] Last Admin: 06/28/17 08:40 Dose: 75 mg Docusate Sodium (Colace) 100 mg PO DAILY PRN PRN Reason: Constipation Last Admin: 06/28/17 00:27 Dose: 100 mg Escitalopram Oxalate (Lexapro) 5 mg PO HS [facility] Last Admin: 06/27/17 22:23 Dose: 5 mg Famotidine (Pepcid) 20 mg PO Q12 [facility] Last Admin: 06/28/17 08:39 Dose: 20 mg Folic Acid (Folic Acid) 1 mg PO DAILY [facility] Last Admin: 06/28/17 08:41 Dose: 1 mg Furosemide (Lasix) 40 mg IVP DAILY [facility] Last Admin: 06/28/17 08:40 Dose: 40 mg Home Med (Patient's Own Medication) 1 unit PO HS [facility] Last Admin: 06/27/17 22:24 Dose: 1 unit Hydroxychloroquine Sulfate (Plaquenil) 200 mg PO Q12H [facility] PRN Reason: Protocol Last Admin: 06/28/17 05:13 Dose: 200 mg Loratadine (Claritin) 10 mg PO DAILY [facility] Last Admin: 06/28/17 08:41 Dose: 10 mg Magnesium Hydroxide (Milk Of Magnesia) 30 ml PO DAILY PRN PRN Reason: Constipation Methotrexate (Methotrexate) 10 mg PO QWK [facility] PRN Reason: Protocol Metoprolol Succinate (Toprol Xl) 25 mg PO DAILY [facility] Last Admin: 06/28/17 08:48 Dose: Not Given Mirtazapine (Remeron) 30 mg PO HS [facility] Last Admin: 06/27/17 22:24 Dose: 30 mg Naproxen (Naprosyn Tab) 250 mg PO BID [facility] Last Admin: 06/28/17 08:41 Dose: 250 mg Pantoprazole Sodium (Protonix Ec Tab) 40 mg PO DAILY [facility] Last Admin: 06/28/17 08:41 Dose: 40 mg Prednisone (Prednisone Tab) 5 mg PO DAILY [facility] Last Admin: 06/28/17 08:43 Dose: 5 mg - Labs Labs: 06/28/17 05:15 06/28/17 05:15 PT 14.9 Seconds (9.8-13.1) H 06/26/17 21:14 INR 1.3 (0.9-1.2) H 06/26/17 21:14 APTT 16.6 Seconds (25.6-37.1) L 06/26/17 21:14 - Additional Findings Additional findings: Physical exam: Constitutional- cooperative, awake, alert Head- NCAT, PERRL Eye- PERRL, EOMI ENT- normal exam, MMM. Neck- normal inspection, supple, no JVD Respiratory- Bilateral rales in the bases (improving), decreased breath sounds, scattered rhonchi, no wheezing. Cardiovascular- RRR, +S1, +S2 no MRG GI/Abdominal- normal bowel sounds, soft, no mass, no hsm Skin- warm, dry Extremities Exam- normal capillary refill, normal inspection Neurological Exam- alert, awake, oriented Psych- normal mood, normal affect Assessment and Plan - Assessment and Plan (Free Text) Plan: Assessment and Plan: 61 y/o female with numerous medical conditions, presenting with SOB; likely largely due to exacerbation of CHF. 1) Acute on chronic CHF, likely R sided, likely related to PAH; CAD -continue telemetry -Continue diuresis with Lasix, 40 mg IV daily ordered - I&O -Serial troponins performed, within normal limits, pt has no chest pain -Cont plavix, statin, and other medications for CAD - Overall patients condition improving, plan for discharge to [facility] tomorrow pending approval 2) HTN -- continue home medications -- hold metoprolol for persistent bradycardia 3) COPD -- current SOB appears more likely due to CHF -Rec'd 125 mg of solumedrol in ER; will hold on further solumedrol unless apparent that COPD is significantly contributing to SOB - No need for abx -Continue qid prn duonebs 4) RA and SLE -Continue folic acid, confirm if patient is actually on plaquenil vs methotrexate 5) Constipation, likely cause of her mild abd pain -CT abd showed no acute findings but possible gallbladder stones - Follow up US abdomen showed no cholelithiasis or cholecystitis -Cont home bowel regimen including miralax, dulcolax and MoM ordered 6) DVT PPx -- will use SCDs only given intermittent low Plt due to asplenia and prior Hx of GIB Status: Acute (2) Abdominal pain Status: Acute (3) Abdominal pain Status: Acute (4) Pulmonary artery hypertension Status: Chronic Priority: High (5) Bradycardia Status: Acute (6) COPD (chronic obstructive pulmonary disease) Status: Acute (7) Rheumatoid arthritis Status: Chronic (8) SLE (systemic lupus erythematosus) Status: Chronic Priority: Medium (9) DVT prophylaxis Status: Acute
--- NOTE | 2017-06-28 14:24 | US ---
HISTORY: n/v abd pain, eval for cholecystitis COMPARISON: None. TECHNIQUE: Sonographic evaluation of the right upper quadrant of the abdomen. FINDINGS: LIVER: Measures 16.1 cm in length. Patent portal vein. Portal venous flow: Hepatopetal. Unremarkable echogenicity of the liver parenchyma. No mass. No intrahepatic bile duct dilatation. GALLBLADDER: Unremarkable. No gallstones. COMMON BILE DUCT: Measures 4.8 mm. No stones. No dilatation. PANCREAS: Obscured by overlying bowel gas. Non diagnostic assessment of the pancreas RIGHT KIDNEY: Measures 3.9 x 12.3 cm in length. Normal echogenicity. No calculus, mass, or hydronephrosis. AORTA: No aneurysmal dilatation. IVC: Unremarkable. OTHER FINDINGS: None . IMPRESSION: No significant or acute findings to account for/ related to the clinical presentation. Limitations of the current examination: Nondiagnostic assessment of pancreas.
[2017-06-28] MEDS: ROPINIROLE 1MG TABLET PO SCH (21:38)
[2017-06-29 05:51] LABS: HEMOGLOBIN 9.3 g/dL (12.0-16.0); MEAN CELL VOLUME 96.4 fl (81.0-99.0); MEAN CORPUSCULAR HEMOGLOBIN 29.9 pg (27.0-31.0); RBC 3.1 Mil/uL (3.80-5.20); RED CELL DISTRIBUTION WIDTH 24.2 % (11.5-14.5); WHITE BLOOD COUNT 7.9 K/uL (4.8-10.8)
[2017-06-29 06:00] LABS: CALCIUM 8.2 mg/dL (8.4-10.2)
[2017-06-29] MEDS: Artificial Tears Opht Soln OD SCH ×2 (08:42→16:36)
[2017-06-29] MEDS: Pantoprazole 40 mg EC Tab PO SCH (08:43)
[2017-06-29] MEDS: Metoprolol Succinate 25 mg XL Tab PO SCH (08:45)
--- NOTE | 2017-06-29 16:23 | CP.PCM.PN ---
Subjective - Date & Time of Evaluation Date of Evaluation: 06/29/17 Time of Evaluation: 08:30 - Subjective Subjective: No fever SOB better no CP no abd pain tolerating PO diet no N/V Plan for d/c to [facility] for further PT once insurance approves Objective - Vital Signs/Intake and Output Vital Signs (last 24 hours): Temp Pulse Resp BP Pulse Ox 97.9 F 54 L 20 121/69 97 06/29/17 16:02 06/29/17 16:02 06/29/17 16:02 06/29/17 16:02 06/29/17 16:02 - Medications Medications: Current Medications Acetaminophen (Tylenol 325mg Tab) 650 mg PO Q6 PRN PRN Reason: Pain, Mild (1-3) Albuterol/Ipratropium (Duoneb 3 Mg/0.5 Mg (3 Ml) Ud) 3 ml INH RQ6 PRN PRN Reason: Shortness of Breath Alprazolam (Xanax) 0.5 mg PO [facility] Last Admin: 06/28/17 21:41 Dose: 0.5 mg Artificial Tears (Artificial Tears) 1 drop OD BID [facility] Last Admin: 06/29/17 08:42 Dose: 1 drop Atorvastatin Calcium (Lipitor) 10 mg PO DAILY [facility] Last Admin: 06/29/17 08:43 Dose: 10 mg Bisacodyl (Dulcolax) 10 mg [place] DAILY PRN PRN Reason: Constipation Last Admin: 06/28/17 16:35 Dose: 10 mg Clopidogrel Bisulfate (Plavix) 75 mg PO DAILY [facility] Last Admin: 06/29/17 08:41 Dose: 75 mg Docusate Sodium (Colace) 100 mg PO DAILY PRN PRN Reason: Constipation Last Admin: 06/28/17 00:27 Dose: 100 mg Escitalopram Oxalate (Lexapro) 5 mg PO [facility] Last Admin: 06/28/17 21:38 Dose: 5 mg Famotidine (Pepcid) 20 mg PO Q12 [facility] Last Admin: 06/29/17 08:41 Dose: 20 mg Folic Acid (Folic Acid) 1 mg PO DAILY [facility] Last Admin: 06/29/17 08:42 Dose: 1 mg Furosemide (Lasix) 40 mg IVP DAILY [facility] Last Admin: 06/29/17 08:42 Dose: 40 mg Home Med (Patient's Own Medication) 1 unit PO [facility] Last Admin: 06/28/17 21:38 Dose: 1 unit Hydroxychloroquine Sulfate (Plaquenil) 200 mg PO Q12H [facility] PRN Reason: Protocol Last Admin: 06/29/17 05:30 Dose: 200 mg Loratadine (Claritin) 10 mg PO DAILY [facility] Last Admin: 06/29/17 08:41 Dose: 10 mg Magnesium Hydroxide (Milk Of Magnesia) 30 ml PO DAILY PRN PRN Reason: Constipation Last Admin: 06/28/17 16:37 Dose: 30 ml Methotrexate (Methotrexate) 10 mg PO QWK [facility] PRN Reason: Protocol Metoprolol Succinate (Toprol Xl) 25 mg PO DAILY [facility] Last Admin: 06/29/17 08:45 Dose: 25 mg Mirtazapine (Remeron) 30 mg PO HS [facility] Last Admin: 06/28/17 21:38 Dose: 30 mg Naproxen (Naprosyn Tab) 250 mg PO BID [facility] Last Admin: 06/29/17 08:39 Dose: 250 mg Pantoprazole Sodium (Protonix Ec Tab) 40 mg PO DAILY [facility] Last Admin: 06/29/17 08:43 Dose: 40 mg Prednisone (Prednisone Tab) 5 mg PO DAILY [facility] Last Admin: 06/29/17 08:43 Dose: 5 mg - Labs Labs: 06/29/17 05:10 06/29/17 05:10 PT 14.9 Seconds (9.8-13.1) H 06/26/17 21:14 INR 1.3 (0.9-1.2) H 06/26/17 21:14 APTT 16.6 Seconds (25.6-37.1) L 06/26/17 21:14 - Constitutional Appears: No Acute Distress, Chronically Ill - Head Exam Head Exam: NORMAL INSPECTION, NORMOCEPHALIC - Eye Exam Eye Exam: EOMI, Normal appearance Pupil Exam: NORMAL ACCOMODATION - ENT Exam ENT Exam: Mucous Membranes Moist, Normal External Ear Exam - Neck Exam Neck Exam: Full ROM. absent: Meningismus - Respiratory Exam Respiratory Exam: Decreased Breath Sounds, Rales (minimal basilar rales), NORMAL BREATHING PATTERN. absent: Respiratory Distress - Cardiovascular Exam Cardiovascular Exam: REGULAR RHYTHM, +S1, +S2 - GI/Abdominal Exam GI & Abdominal Exam: Soft, Normal Bowel Sounds. absent: Tenderness - Extremities Exam Extremities Exam: Normal Capillary Refill, Pedal Edema. absent: Calf Tenderness - Back Exam Back Exam: absent: CVA tenderness (L), CVA tenderness (R) - Neurological Exam Neurological Exam: Alert, Awake, Oriented x3 - Psychiatric Exam Psychiatric exam: Normal Affect, Normal Mood - Skin Skin Exam: Dry, Normal Color, Warm Assessment and Plan - Assessment and Plan (Free Text) Assessment: 61 y/o female with Hx of CHF, COPD, RA, SLE , Pulm HTN came in with SOB and pedal edema. Pro BNP was elevated to 4k. Pt was admitted to Telemetry and started on IV Diuretics. Also complained of abd ppain. CT of the Abd : No acute findings 1) Acute on chronic Diatolic CHF, likely R sided, likely related to PAH Echo done 06/10 : sever TR, severe Pulm HTN, EF=60% -admitted to telemetry -Continue diuresis with Lasix, 40 mg IV daily ordered - I&O -Serial troponins performed, within normal limits, pt has no chest pain -Cont plavix, statin, Toprol - Overall patients condition improving, plan for discharge to [facility] pending insurance approval 2) HTN - - continue home medications - Toprol and Lasix 3) COPD , chronic -Rec'd 125 mg of solumedrol in ER; will hold on further solumedrol unless apparent that COPD is significantly contributing to SOB - No need for abx -Continue qid prn duonebs 4) RA and SLE -Continue folic acid, cont plaquenil /methotrexate 5) Constipation, likely cause of her mild abd pain -CT abd showed no acute findings but possible gallbladder stones - Follow up US abdomen showed no cholelithiasis or cholecystitis -Cont home bowel regimen including miralax, dulcolax and MoM ordered 6) DVT PPx -- will use SCDs only given intermittent low Plt due to asplenia and prior Hx of GIB
[2017-06-29] MEDS: ROPINIROLE 1MG TABLET PO SCH (21:14)
--- NOTE | 2017-06-30 08:35 | CP.PCM.PN ---
Subjective - Date & Time of Evaluation Date of Evaluation: 06/30/17 Time of Evaluation: 08:34 - Subjective Subjective: doing well this am no complaints at this time HD clinton [facility]STELLAN[facility] Objective - Vital Signs/Intake and Output Vital Signs (last 24 hours): Temp Pulse Resp BP Pulse Ox 97.5 F L 50 L 18 137/71 99 06/30/17 08:12 06/30/17 08:12 06/30/17 08:12 06/30/17 08:12 06/30/17 08:12 - Medications Medications: Current Medications Acetaminophen (Tylenol 325mg Tab) 650 mg PO Q6 PRN PRN Reason: Pain, Mild (1-3) Albuterol/Ipratropium (Duoneb 3 Mg/0.5 Mg (3 Ml) Ud) 3 ml INH RQ6 PRN PRN Reason: Shortness of Breath Alprazolam (Xanax) 0.5 mg PO HS [facility] Last Admin: 06/29/17 22:15 Dose: 0.5 mg Artificial Tears (Artificial Tears) 1 drop OD BID [facility] Last Admin: 06/29/17 16:36 Dose: 1 drop Atorvastatin Calcium (Lipitor) 10 mg PO DAILY [facility] Last Admin: 06/29/17 08:43 Dose: 10 mg Bisacodyl (Dulcolax) 10 mg [place] DAILY PRN PRN Reason: Constipation Last Admin: 06/28/17 16:35 Dose: 10 mg Clopidogrel Bisulfate (Plavix) 75 mg PO DAILY [facility] Last Admin: 06/29/17 08:41 Dose: 75 mg Docusate Sodium (Colace) 100 mg PO DAILY PRN PRN Reason: Constipation Last Admin: 06/28/17 00:27 Dose: 100 mg Escitalopram Oxalate (Lexapro) 5 mg PO [facility] Last Admin: 06/29/17 21:14 Dose: 5 mg Famotidine (Pepcid) 20 mg PO Q12 [facility] Last Admin: 06/29/17 21:14 Dose: 20 mg Folic Acid (Folic Acid) 1 mg PO DAILY [facility] Last Admin: 06/29/17 08:42 Dose: 1 mg Furosemide (Lasix) 40 mg IVP DAILY [facility] Last Admin: 06/29/17 08:42 Dose: 40 mg Home Med (Patient's Own Medication) 1 unit PO HS [facility] Last Admin: 06/29/17 21:14 Dose: 1 unit Hydroxychloroquine Sulfate (Plaquenil) 200 mg PO Q12H [facility] PRN Reason: Protocol Last Admin: 06/29/17 16:37 Dose: 200 mg Loratadine (Claritin) 10 mg PO DAILY [facility] Last Admin: 06/29/17 08:41 Dose: 10 mg Magnesium Hydroxide (Milk Of Magnesia) 30 ml PO DAILY PRN PRN Reason: Constipation Last Admin: 06/28/17 16:37 Dose: 30 ml Methotrexate (Methotrexate) 10 mg PO QWK [facility] PRN Reason: Protocol Metoprolol Succinate (Toprol Xl) 25 mg PO DAILY [facility] Last Admin: 06/29/17 08:45 Dose: 25 mg Mirtazapine (Remeron) 30 mg PO HS [facility] Last Admin: 06/29/17 21:14 Dose: 30 mg Naproxen (Naprosyn Tab) 250 mg PO BID [facility] Last Admin: 06/29/17 16:36 Dose: 250 mg Pantoprazole Sodium (Protonix Ec Tab) 40 mg PO DAILY [facility] Last Admin: 06/29/17 08:43 Dose: 40 mg Prednisone (Prednisone Tab) 5 mg PO DAILY [facility] Last Admin: 06/29/17 08:43 Dose: 5 mg - Labs Labs: 06/29/17 05:10 06/29/17 05:10 PT 14.9 Seconds (9.8-13.1) H 06/26/17 21:14 INR 1.3 (0.9-1.2) H 06/26/17 21:14 APTT 16.6 Seconds (25.6-37.1) L 06/26/17 21:14 - Constitutional Appears: Non-toxic, No Acute Distress - Head Exam Head Exam: ATRAUMATIC, NORMOCEPHALIC - Eye Exam Eye Exam: EOMI, Normal appearance, PERRL - ENT Exam ENT Exam: Mucous Membranes Moist, Normal Oropharynx - Neck Exam Neck Exam: Full ROM, Normal Inspection - Respiratory Exam Respiratory Exam: Clear to Ausculation Bilateral, NORMAL BREATHING PATTERN - Cardiovascular Exam Cardiovascular Exam: RRR, +S1, +S2 - GI/Abdominal Exam GI & Abdominal Exam: Soft, Normal Bowel Sounds. absent: Mass, Organomegaly - Extremities Exam Extremities Exam: Normal Capillary Refill, Normal Inspection - Back Exam Back Exam: absent: CVA tenderness (L), CVA tenderness (R) - Neurological Exam Neurological Exam: Alert, Awake - Psychiatric Exam Psychiatric exam: Normal Affect, Normal Mood - Skin Skin Exam: Dry, Warm Assessment and Plan - Assessment and Plan (Free Text) Plan: 61 y/o female with Hx of CHF, COPD, RA, SLE , Pulm HTN came in with SOB and pedal edema. Pro BNP was elevated to 4k. Pt was admitted to Telemetry and started on IV Diuretics. Also complained of abd ppain. CT of the Abd : No acute findings 1) Acute on chronic Diatolic CHF, likely R sided, likely related to PAH Echo done 06/10 : sever TR, severe Pulm HTN, EF=60% -admitted to telemetry -Continue diuresis with Lasix, 40 mg IV daily ordered - I&O -Serial troponins performed, within normal limits, pt has no chest pain -Cont plavix, statin, Toprol - Overall patients condition improving, plan for discharge to [facility] pending insurance approval 2) HTN - - continue home medications - Toprol and Lasix 3) COPD , chronic -Rec'd 125 mg of solumedrol in ER; will hold on further solumedrol unless apparent that COPD is significantly contributing to SOB - No need for abx -Continue qid prn duonebs 4) RA and SLE -Continue folic acid, cont plaquenil /methotrexate 5) Constipation, likely cause of her mild abd pain -CT abd showed no acute findings but possible gallbladder stones - Follow up US abdomen showed no cholelithiasis or cholecystitis -Cont home bowel regimen including miralax, dulcolax and MoM ordered 6) DVT PPx -- will use SCDs only given intermittent low Plt due to asplenia and prior Hx of GIB
[2017-06-30] MEDS: Artificial Tears Opht Soln OD SCH ×2 (09:07→17:12)
[2017-06-30] MEDS: Pantoprazole 40 mg EC Tab PO SCH (09:11)
[2017-06-30] MEDS: Metoprolol Succinate 25 mg XL Tab PO SCH (09:12)
[2017-06-30] MEDS: ROPINIROLE 1MG TABLET PO SCH (21:49)
--- NOTE | 2017-07-01 07:43 | CP.PCM.PN ---
Subjective - Date & Time of Evaluation Date of Evaluation: 07/01/17 Time of Evaluation: 07:43 - Subjective Subjective: doing well no changes ALVAREZ tomorrow HD stable NAD Objective - Vital Signs/Intake and Output Vital Signs (last 24 hours): Temp Pulse Resp BP Pulse Ox 97.4 F L 55 L 20 129/76 97 07/01/17 05:00 07/01/17 05:00 07/01/17 05:00 07/01/17 05:00 07/01/17 05:00 Constitutional- cooperative, awake, alert. Head- NCAT, PERRL Eye- PERRL, normal accommodation ENT- normal exam, MMM. Neck- normal inspection, supple, no JVD Respiratory- CTAB, no wheezes rales rhonchi Cardiovascular- RRR, +S1, +S2 no MRG GI/Abdominal- normal bowel sounds, soft Skin- warm, dry Extremities Exam- normal capillary refill, normal inspection Neurological Exam- alert, oriented Psych- normal mood, normal affect - Medications Medications: Current Medications Acetaminophen (Tylenol 325mg Tab) 650 mg PO Q6 PRN PRN Reason: Pain, Mild (1-3) Albuterol/Ipratropium (Duoneb 3 Mg/0.5 Mg (3 Ml) Ud) 3 ml INH RQ6 PRN PRN Reason: Shortness of Breath Alprazolam (Xanax) 0.5 mg PO [facility] Last Admin: 06/30/17 21:53 Dose: 0.5 mg Artificial Tears (Artificial Tears) 1 drop OD BID [facility] Last Admin: 06/30/17 17:12 Dose: 1 drop Atorvastatin Calcium (Lipitor) 10 mg PO DAILY [facility] Last Admin: 06/30/17 09:13 Dose: 10 mg Bisacodyl (Dulcolax) 10 mg [place] DAILY PRN PRN Reason: Constipation Last Admin: 06/28/17 16:35 Dose: 10 mg Clopidogrel Bisulfate (Plavix) 75 mg PO DAILY [facility] Last Admin: 06/30/17 09:13 Dose: 75 mg Docusate Sodium (Colace) 100 mg PO DAILY PRN PRN Reason: Constipation Last Admin: 06/30/17 09:10 Dose: 100 mg Escitalopram Oxalate (Lexapro) 5 mg PO [facility] Last Admin: 06/30/17 21:48 Dose: 5 mg Famotidine (Pepcid) 20 mg PO Q12 [facility] Last Admin: 06/30/17 21:49 Dose: 20 mg Folic Acid (Folic Acid) 1 mg PO DAILY [facility] Last Admin: 06/30/17 09:11 Dose: 1 mg Furosemide (Lasix) 40 mg IVP DAILY [facility] Last Admin: 06/30/17 09:13 Dose: 40 mg Home Med (Patient's Own Medication) 1 unit PO HS [facility] Last Admin: 06/30/17 21:49 Dose: 1 unit Hydroxychloroquine Sulfate (Plaquenil) 200 mg PO Q12H [facility] PRN Reason: Protocol Last Admin: 06/30/17 17:12 Dose: 200 mg Loratadine (Claritin) 10 mg PO DAILY [facility] Last Admin: 06/30/17 09:12 Dose: 10 mg Magnesium Hydroxide (Milk Of Magnesia) 30 ml PO DAILY PRN PRN Reason: Constipation Last Admin: 06/28/17 16:37 Dose: 30 ml Methotrexate (Methotrexate) 10 mg PO QWK [facility] PRN Reason: Protocol Last Admin: 06/30/17 09:07 Dose: 10 mg Metoprolol Succinate (Toprol Xl) 25 mg PO DAILY [facility] Last Admin: 06/30/17 09:12 Dose: Not Given Mirtazapine (Remeron) 30 mg PO HS [facility] Last Admin: 06/30/17 21:48 Dose: 30 mg Naproxen (Naprosyn Tab) 250 mg PO BID [facility] Last Admin: 06/30/17 17:12 Dose: 250 mg Pantoprazole Sodium (Protonix Ec Tab) 40 mg PO DAILY [facility] Last Admin: 06/30/17 09:11 Dose: 40 mg Prednisone (Prednisone Tab) 5 mg PO DAILY [facility] Last Admin: 06/30/17 09:11 Dose: 5 mg - Labs Labs: 06/29/17 05:10 06/29/17 05:10 PT 14.9 Seconds (9.8-13.1) H 06/26/17 21:14 INR 1.3 (0.9-1.2) H 06/26/17 21:14 APTT 16.6 Seconds (25.6-37.1) L 06/26/17 21:14 Assessment and Plan - Assessment and Plan (Free Text) Plan: 61 y/o female with Hx of CHF, COPD, RA, SLE , Pulm HTN came in with SOB and pedal edema. Pro BNP was elevated to 4k. Pt was admitted to Telemetry and started on IV Diuretics. Also complained of abd ppain. CT of the Abd : No acute findings 1) Acute on chronic Diatolic CHF, likely R sided, likely related to PAH Echo done 06/10 : sever TR, severe Pulm HTN, EF=60% -admitted to telemetry -Continue diuresis with Lasix, 40 mg IV daily ordered - I&O -Serial troponins performed, within normal limits, pt has no chest pain -Cont plavix, statin, Toprol - Overall patients condition improving, plan for discharge to [facility] pending insurance approval 2) HTN - - continue home medications - Toprol and Lasix 3) COPD , chronic -Rec'd 125 mg of solumedrol in ER; will hold on further solumedrol unless apparent that COPD is significantly contributing to SOB - No need for abx -Continue qid prn duonebs 4) RA and SLE -Continue folic acid, cont plaquenil /methotrexate 5) Constipation, likely cause of her mild abd pain -CT abd showed no acute findings but possible gallbladder stones - Follow up US abdomen showed no cholelithiasis or cholecystitis -Cont home bowel regimen including miralax, dulcolax and MoM ordered 6) DVT PPx -- will use SCDs only given intermittent low Plt due to asplenia and prior Hx of GIB
[2017-07-01 08:26] LABS: CALCIUM 8.4 mg/dL (8.4-10.2)
[2017-07-01 08:32] LABS: BASO % 0.4 % (0.0-2.0); EOS # 0.2 K/uL (0.0-0.7); EOS % 2.4 % (0.0-4.0); HEMOGLOBIN 9.6 g/dL (12.0-16.0); LYMPH # 2.3 K/uL (1.0-4.3); LYMPH % 30.2 % (20.0-40.0); MEAN CELL VOLUME 96.5 fl (81.0-99.0); MEAN CORPUSCULAR HEMOGLOBIN 29.9 pg (27.0-31.0); MONO # 1.2 K/uL (0.0-0.8); NEUT # 3.8 K/uL (1.8-7.0); NRBC % 2.4 % (0.0-0.0); RBC 3.2 Mil/uL (3.80-5.20); RED CELL DISTRIBUTION WIDTH 23.8 % (11.5-14.5); WHITE BLOOD COUNT 7.5 K/uL (4.8-10.8)
[2017-07-01] MEDS: Pantoprazole 40 mg EC Tab PO SCH (11:00)
[2017-07-01] MEDS: Artificial Tears Opht Soln OD SCH ×2 (11:00→16:58)
[2017-07-01] MEDS: Metoprolol Succinate 25 mg XL Tab PO SCH (11:00)
[2017-07-01] MEDS: ROPINIROLE 1MG TABLET PO SCH (22:06)
[2017-07-02 05:30] LABS: HEMOGLOBIN 9.2 g/dL (12.0-16.0); MEAN CELL VOLUME 96.1 fl (81.0-99.0); MEAN CORPUSCULAR HEMOGLOBIN 29.7 pg (27.0-31.0); RBC 3.08 Mil/uL (3.80-5.20); WHITE BLOOD COUNT 7.5 K/uL (4.8-10.8)
[2017-07-02 05:37] LABS: BLOOD UREA NITROGEN 35 mg/dl (7-17); CALCIUM 8.9 mg/dL (8.4-10.2); GFR AFRICAN-AMERICAN > 60; GFR NON-AFRICAN AMERICAN 56
[2017-07-02] MEDS: Artificial Tears Opht Soln OD SCH (10:31)
[2017-07-02] MEDS: Pantoprazole 40 mg EC Tab PO SCH (10:32)
[2017-07-02] MEDS: Metoprolol Succinate 25 mg XL Tab PO SCH (10:32)
--- NOTE | 2017-07-02 13:46 | CP.PCM.DIS ---
Provider - Provider Date of Admission: 06/26/17 23:43 Attending physician: Gunjan Bonilla MD Time Spent in preparation of Discharge (in minutes): 30 Diagnosis - Discharge Diagnosis (1) CHF exacerbation Status: Acute (2) COPD exacerbation Status: Acute Priority: High Hospital Course - Lab Results Lab Results: Micro Results 06/26/17 21:53 Blood Blood Culture - Final NO GROWTH AFTER 5 DAYS 06/26/17 21:53 Blood Gram Stain - Final TEST NOT PERFORMED 06/26/17 21:14 Blood Blood Culture - Final NO GROWTH AFTER 5 DAYS 06/26/17 21:14 Blood Gram Stain - Final TEST NOT PERFORMED Most Recent Lab Values WBC 7.5 K/uL (4.8-10.8) 07/02/17 04:15 RBC 3.08 Mil/uL (3.80-5.20) L 07/02/17 04:15 Hgb 9.2 g/dL (12.0-16.0) L 07/02/17 04:15 Hct 29.6 % (34.0-47.0) L 07/02/17 04:15 MCV 96.1 fl (81.0-99.0) 07/02/17 04:15 MCH 29.7 pg (27.0-31.0) 07/02/17 04:15 MCHC 31.0 g/dL (33.0-37.0) L 07/02/17 04:15 RDW 23.0 % (11.5-14.5) H 07/02/17 04:15 Plt Count 89 K/uL (130-400) L 07/02/17 04:15 MPV 10.0 fl (7.2-11.7) 07/01/17 05:56 Neut % (Auto) 51.0 % (50.0-75.0) 07/01/17 05:56 Lymph % (Auto) 30.2 % (20.0-40.0) 07/01/17 05:56 Hyde % (Auto) 16.0 % (0.0-10.0) H 07/01/17 05:56 Eos % (Auto) 2.4 % (0.0-4.0) 07/01/17 05:56 Baso % (Auto) 0.4 % (0.0-2.0) 07/01/17 05:56 Neut # (Auto) 3.8 K/uL (1.8-7.0) 07/01/17 05:56 Lymph # (Auto) 2.3 K/uL (1.0-4.3) 07/01/17 05:56 Hyde # (Auto) 1.2 K/uL (0.0-0.8) H 07/01/17 05:56 Eos # (Auto) 0.2 K/uL (0.0-0.7) 07/01/17 05:56 Baso # (Auto) 0.0 K/uL (0.0-0.2) 07/01/17 05:56 PT 14.9 Seconds (9.8-13.1) H 06/26/17 21:14 INR 1.3 (0.9-1.2) H 06/26/17 21:14 APTT 16.6 Seconds (25.6-37.1) L 06/26/17 21:14 pCO2 43 mm/Hg (35-45) 06/26/17 21:00 pO2 62 mm/Hg (80-100) L 06/26/17 21:00 HCO3 26.5 mmol/L (21-28) 06/26/17 21:00 ABG pH 7.41 (7.35-7.45) 06/26/17 21:00 ABG Total CO2 28.6 mmol/L (22-28) H 06/26/17 21:00 ABG O2 Saturation 95.7 % (95-98) 06/26/17 21:00 ABG Base Excess 2.2 mmol/L (-2.0-3.0) 06/26/17 21:00 Gio Test Yes 06/26/17 21:00 ABG Potassium 3.7 mmol/L (3.6-5.2) 06/26/17 21:00 A-a O2 Difference 112.0 mm/Hg 06/26/17 21:00 Sodium 140.0 mmol/L (132-148) 06/26/17 21:00 Chloride 110.0 mmol/L (98-107) H 06/26/17 21:00 Glucose 104 mg/dL (65-105) 06/26/17 21:00 Lactate 1.2 mmol/L (0.7-2.1) 06/26/17 21:00 FiO2 32.0 % 06/26/17 21:00 Sodium 146 mmol/l (132-148) 07/02/17 04:15 Potassium 4.3 MMOL/L (3.6-5.0) 07/02/17 04:15 Chloride 102 mmol/L (98-107) 07/02/17 04:15 Carbon Dioxide 35 mmol/L (22-30) H 07/02/17 04:15 Anion Gap 13 (10-20) 07/02/17 04:15 BUN 35 mg/dl (7-17) H 07/02/17 04:15 Creatinine 1.0 mg/dl (0.7-1.2) 07/02/17 04:15 Est GFR ( Amer) > 60 07/02/17 04:15 Est GFR (Non-Af Amer) 56 07/02/17 04:15 Random Glucose 81 mg/dL (65-105) 07/02/17 04:15 Calcium 8.9 mg/dL (8.4-10.2) 07/02/17 04:15 Phosphorus 3.7 mg/dl (2.5-4.5) 06/26/17 21:14 Magnesium 1.8 MG/DL (1.6-2.3) 06/26/17 21:14 Total Bilirubin 1.3 mg/dl (0.2-1.3) 06/26/17 21:14 AST 49 U/L (14-36) H D 06/26/17 21:14 ALT 38 U/L (9-52) 06/26/17 21:14 Alkaline Phosphatase 146 U/L (38-126) H 06/26/17 21:14 Troponin I 0.0760 ng/mL (0.00-0.120) 06/27/17 05:45 NT-Pro-B Natriuret Pep 4620 pg/ml (0-900) H 06/26/17 21:14 Total Protein 7.4 G/DL (6.3-8.2) 06/26/17 21:14 Albumin 3.8 g/dL (3.5-5.0) 06/26/17 21:14 Globulin 3.6 gm/dL (2.2-3.9) 06/26/17 21:14 Albumin/Globulin Ratio 1.1 (1.0-2.1) 06/26/17 21:14 Arterial Blood Potassium 3.7 mmol/L (3.6-5.2) 06/26/17 21:00 - Hospital Course Hospital Course: 61 y/o female with Hx of CHF, COPD, RA, SLE , Pulm HTN came in with SOB and pedal edema. Pro BNP was elevated to 4k. Pt was admitted to Telemetry and started on IV Diuretics. Also complained of abd ppain. CT of the Abd : No acute findings 1) Acute on chronic Diatolic CHF, likely R sided, likely related to PAH Echo done 06/10 : sever TR, severe Pulm HTN, EF=60% -admitted to telemetry -Continue diuresis with Lasix, 40 mg IV daily ordered - I&O -Serial troponins performed, within normal limits, pt has no chest pain -Cont plavix, statin, Toprol - Overall patients condition improved, discharge to [facility] for further rehab needs/ 2) HTN - - continue home medications - Toprol and Lasix 3) COPD , chronic -Rec'd 125 mg of solumedrol in ER; will hold on further solumedrol unless apparent that COPD is significantly contributing to SOB - No need for abx -Continue qid prn duonebs 4) RA and SLE -Continue folic acid, cont plaquenil /methotrexate 5) Constipation, likely cause of her mild abd pain -CT abd showed no acute findings but possible gallbladder stones - Follow up US abdomen showed no cholelithiasis or cholecystitis -Cont home bowel regimen including miralax, dulcolax and MoM ordered 6) DVT PPx -- will use SCDs only given intermittent low Plt due to asplenia and prior Hx of GIB Discharge Exam - Head Exam Additional comments: General: awake, alert HEENT: NCAT, PERRL, EOMI HEART: RRR, S1, S2 no MRG LUNG: CTAB, no WRR ABD: soft, NT, ND, no mass, no HSM EXT: warm, well perfused NEURO: awake, alert SKIN: warm, dry PSYCH: normal mood, normal affect Discharge Plan - Discharge Medications Prescriptions: Furosemide [Lasix] 40 mg PO DAILY #30 tab - Follow Up Plan Condition: FAIR Disposition: TRANSF TO SNF Instructions: Heart Healthy Diet, Heart Failure, Adult (DC), Exacerbation of COPD (DC) Referrals: Deniz Albright MD [Family Provider] -
[2017-07-02 15:49] VITALS: BP 137/74; PULSE 72; RESP 20; TEMP 98.2; O2SAT 99
== END 2017-07-02 16:45 | DRG 127 ==
LOC: H.ER 20:27 → H.ERHOLD 23:43 → H.TEL 06-27 10:55
PROVIDERS: ADMIT Internal Medicine; ATTEND Internal Medicine
DX: I11.0 Hypertensive heart disease with heart failure (principal); J44.1 Chronic obstructive pulmonary disease with (acute) exacerbation; M32.9 Systemic lupus erythematosus, unspecified; D69.59 Other secondary thrombocytopenia; I50.33 Acute on chronic diastolic (congestive) heart failure; E78.00 Pure hypercholesterolemia, unspecified; E78.5 Hyperlipidemia, unspecified; G47.30 Sleep apnea, unspecified; I25.10 Atherosclerotic heart disease of native coronary artery without angina pectoris; I27.21 Secondary pulmonary arterial hypertension; K59.00 Constipation, unspecified; M06.9 Rheumatoid arthritis, unspecified; M81.0 Age-related osteoporosis without current pathological fracture; Z79.02 Long term (current) use of antithrombotics/antiplatelets; Z82.3 Family history of stroke; Z82.49 Family history of ischemic heart disease and other diseases of the circulatory system; Z83.3 Family history of diabetes mellitus; Z90.49 Acquired absence of other specified parts of digestive tract; Z95.5 Presence of coronary angioplasty implant and graft; D64.9 Anemia, unspecified; I69.328 Other speech and language deficits following cerebral infarction; F32.9 Major depressive disorder, single episode, unspecified; F41.9 Anxiety disorder, unspecified; K29.70 Gastritis, unspecified, without bleeding; M19.90 Unspecified osteoarthritis, unspecified site; Z79.899 Other long term (current) drug therapy; R00.1 Bradycardia, unspecified

== ENCOUNTER 2017-07-19 21:42 | Inpatient (IN) | payer MEDICAID ==
[2017-07-19] MEDS ORDERED: Albuterol-Ipratrop 3 mg / 0.5 (3 ml) UD INH STA ×2 (22:26→22:28)
[2017-07-19 22:42] LABS: BASO # 0.1 K/uL (0.0-0.2); BASO % 1.2 % (0.0-2.0); EOS # 0.1 K/uL (0.0-0.7); EOS % 0.7 % (0.0-4.0); HEMOGLOBIN 10.5 g/dL (12.0-16.0); LYMPH # 2.6 K/uL (1.0-4.3); LYMPH % 33.6 % (20.0-40.0); MEAN CELL VOLUME 96.3 fl (81.0-99.0); MEAN CORPUSCULAR HEMOGLOBIN 29.5 pg (27.0-31.0); MEAN CORPUSCULAR HGB CONC 30.6 g/dL (33.0-37.0); MEAN PLATELET VOLUME 10.1 fl (7.2-11.7); MONO # 0.9 K/uL (0.0-0.8); MONO % 11.4 % (0.0-10.0); NEUT # 4.1 K/uL (1.8-7.0); NEUT % 53.1 % (50.0-75.0); NRBC % 4.4 % (0.0-0.0); RBC 3.57 Mil/uL (3.80-5.20); RED CELL DISTRIBUTION WIDTH 24.3 % (11.5-14.5); WHITE BLOOD COUNT 7.6 K/uL (4.8-10.8)
[2017-07-19 22:53] LABS: VENOUS BLOOD GAS PCO2 67 mmHg (40-60); VENOUS BLOOD GAS PO2 25 mm/Hg (30-55); VENOUS BLOOD PH 7.33 (7.32-7.43)
[2017-07-19] MEDS ORDERED: Cefepime 2 GM in Sodium Chloride 0.9% 100 ML IVPB STA (22:56)
[2017-07-19] MEDS ORDERED: Sodium Chloride 0.9% 1,000 ML IV SCH (23:00)
--- NOTE | 2017-07-19 23:09 | ED PDOC ---
HPI: SOB/CHF/COPD Time Seen by Provider: 07/19/17 22:16 Chief Complaint (Nursing): Shortness Of Breath History Per: Patient History/Exam Limitations: no limitations Onset/Duration Of Symptoms: Hrs Current Symptoms Are (Timing): Still Present Associated Symptoms: Fever, Chills, Sweating, Chest Pain Additional Complaint(s): Hx of multiple medical problems (CHF, COPD, CVA, HTN, HLD, CAD, SLE...) presenting with shortness of breath and cough. Currently patient resides in [facility] for rehab and has had 3 days of cough, shortness of breath, subjective fevers, and chest pain. States that she has mucus but is having a hard time expectorating it. Of note, patient is DNR/DNI. Past Medical History Reviewed: Historical Data, Nursing Documentation, Vital Signs Vital Signs: Last Vital Signs Temp 98.3 F 07/19/17 21:44 Pulse 84 07/19/17 23:30 Resp 28 H 07/20/17 01:57 BP 153/72 H 07/19/17 21:44 Pulse Ox 92 L 07/20/17 01:28 - Medical History PMH: Anemia, Anxiety, Arthritis, Asthma, Back Problems (chronic back pain), CAD , Cardia Arrhythmia, CHF, COPD, CVA (x3 with left weakness), Depression, Diverticulitis, Gastritis, HTN, Hypercholesterolemia, Osteoporosis, Peripheral Edema, Rheumatoid Arthritis, Sleep Apnea, TIA Denies: HIV, Chronic Kidney Disease, Seizures (denies) - Surgical History Surgical History: Appendectomy, Coronary Stent ([place] and [facility]), (x2) Denies: Cholecystectomy - Family History Family History: States: Unknown Family Hx - Immunization History Hx Influenza Vaccination: Yes - Home Medications Home Medications: Ambulatory Orders Medication Instructions Recorded Alprazolam [Xanax] 0.5 mg PO HS 11/14/16 Meloxicam [Mobic] 7.5 mg PO HS 03/25/17 Polyethylene Glycol/Polyvinyl 1 drop OP BID 03/25/17 [Artificial Tears] Clopidogrel [Plavix] 75 mg PO DAILY #30 tab 04/08/17 Docusate Sodium [Stool Softener] 100 mg PO DAILY PRN #30 tablet 04/08/17 Escitalopram [Lexapro] 5 mg PO HS #30 tab 04/08/17 Folic Acid 1 mg PO DAILY #30 tab 04/08/17 Mirtazapine [Remeron] 30 mg PO HS #30 tab 04/08/17 Tetrahydrz/Dext 70/Peg 400/Pvp [Hm 1 drop OP BID #30 drops 04/08/17 Eye Drops Advanced Relief] rOPINIRole [Requip] 1 mg PO HS #30 tab 04/08/17 Atorvastatin [Lipitor] 10 mg PO DAILY 06/02/17 Albuterol 0.083% [Albuterol 0.083% 3 ml INH PRN PRN 06/27/17 Inhal Lotus (2.5 mg/3 ml) UD] Escitalopram [Lexapro] 10 mg PO DAILY 06/27/17 Hydroxychloroquine Sulfate 200 mg PO Q12 06/27/17 [Plaquenil] Hyoscyamine [Levsin] 0.125 mg PO DAILY 06/27/17 Meclizine [Antivert] 12.5 mg PO PRN PRN 06/27/17 Methotrexate 10 mg PO QWK 06/27/17 Metoprolol Succinate [Toprol XL] 25 mg PO DAILY 06/27/17 Ondansetron HCl [Zofran] 4 mg PO PRN PRN 06/27/17 Pantoprazole [Protonix EC Tab] 40 mg PO DAILY 06/27/17 Promethazine DM [Phenergan DM 5 ml PO PRN PRN 06/27/17 Syrup] predniSONE [predniSONE Tab] 5 mg PO DAILY 06/27/17 Acetaminophen [Tylenol 325mg tab] 650 mg PO Q6 PRN tab 06/29/17 Albuterol/Ipratropium [Duoneb 3 3 ml INH RQ6 PRN neb 06/29/17 mg/0.5 mg (3 ml) UD] Famotidine [Pepcid] 20 mg PO Q12 tab 06/29/17 Furosemide [Lasix] 40 mg PO DAILY #30 tab 06/29/17 Loratadine [Claritin] 10 mg PO DAILY tab 06/29/17 Methotrexate 10 mg PO QWK tab 06/29/17 - Allergies Allergies/Adverse Reactions: Allergies Allergy/AdvReac Type Severity Reaction Status Date / Time No Known Allergies Allergy Verified 07/19/17 21:44 Review of Systems ROS Statement: Except As Marked, All Systems Reviewed And Found Negative Constitutional: Positive for: Fever, Chills, Sweats Cardiovascular: Positive for: Chest Pain Respiratory: Positive for: Cough, Shortness of Breath Physical Exam - Reviewed Nursing Documentation Reviewed: Yes - Physical Exam Appears: Positive for: In Acute Distress Head Exam: Positive for: ATRAUMATIC, NORMAL INSPECTION Skin: Positive for: Pallor Eye Exam: Positive for: Normal appearance ENT: Positive for: Normal ENT Inspection Neck: Positive for: Normal (No JVD) Cardiovascular/Chest: Positive for: Regular Rate, Rhythm Respiratory: Positive for: Accessory Muscle Use, Crackles, Rales, Rhonchi, Wheezing, Other (Tachynpeic) Gastrointestinal/Abdominal: Positive for: Normal Exam, Bowel Sounds, Soft Extremity: Positive for: Normal ROM Neurologic/Psych: Positive for: Alert - Laboratory Results Result Diagrams: 07/19/17 22:30 07/19/17 23:23 - ECG O2 Sat by Pulse Oximetry: 99 Pulse Ox Interpretation: Normal - Critical Care Total Time (In Min): 60 Medical Decision Making Medical Decision MakinPM A/P: Patient with multiple medical problems presents with cough, shortness of breath, respiratory distress -Concered for possible PNA v. bronchitis v. COPD exacerbation v. less likely CHF exacerbation or ACS, also patient has anxiety component -will get labs, including cultures, VBG -patient in guarded state at this time, requiring BIPAP -will likely require Tele or ICU admission -pending re-eval 0020AM Patient is better on BIPAP and after ativan Will admit to Tele for resp distress and possible PNA -Dr. Bonilla aware Disposition - Clinical Impression Clinical Impression: Respiratory distress - Disposition Disposition Time: 00:20 Condition: GUARDED
[2017-07-19] MEDS ORDERED: Albuterol-Ipratrop 3 mg / 0.5 (3 ml) UD ONE (23:11)
[2017-07-19 23:24] LABS: INR 1.1 (0.9-1.2); PARTIAL THROMBOPLASTIN TIME 22.1 Seconds (25.6-37.1)
[2017-07-20] LABS: ALB/GLOB RATIO 1.1 (1.0-2.1); ALBUMIN 3.9 g/dL (3.5-5.0); ALT/SGPT 36 U/L (9-52); AST/SGOT 46 U/L (14-36); BLOOD UREA NITROGEN 26 mg/dl (7-17); GFR AFRICAN-AMERICAN > 60; GFR NON-AFRICAN AMERICAN 50
--- NOTE | 2017-07-20 00:25 | CP.PCM.CON ---
History of Present Illness - History of Present Illness History of Present Illness: CC: SOB/cough/?fevers HPI: This is a 61 y/o female with multiple recent admissions for cardiac and respiratory issues, who comes again with respiratory distress. 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 She comes in with 3 days of cough, with difficulty expectorating, SOB, and tactile fevers. Denies n/v/d. Denies dysuria. PMD: Dr. Albright Dental Sales Representative: Dr. 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, CAD/[place] , HTN, Sleep apnea on CPAP, asthma/COPD on home O2 (still not using), HLD rheumatoid arthritis, SLE, osteoporosis, thrombocytopenia SHx: Carpal tunnel surgery, C- sections x 2, bunion removal,splecectomy Allergies: NKDA Medications: Per med rec Family Hx: Mother had HTN, DM and CABG, Father had CVA HTN and DM Social Hx: was d/c'ed to a SNF from last admission which was just over a week ago, no EtOH, no tobacco currently Surrogate: Daughter, info on chart; patient DNR/DNI Past Patient History - Infectious Disease Hx of Infectious Diseases: None - Tetanus Immunizations Tetanus Immunization: Unknown - Past Medical History & Family History Past Medical History?: Yes - Past Social History Smoking Status: Never Smoked - CARDIAC Hx Cardia Arrhythmia: Yes Hx Congestive Heart Failure: Yes Hx Hypercholesterolemia: Yes Hx Hypertension: Yes Hx Peripheral Edema: Yes - PULMONARY Hx Asthma: Yes Hx Chronic Obstructive Pulmonary Disease (COPD): Yes Hx Sleep Apnea: Yes - NEUROLOGICAL Hx Seizures: No (denies) Hx Transient Ischemic Attacks (TIA): Yes - HEENT Hx HEENT Problems: No - RENAL Hx Chronic Kidney Disease: No - ENDOCRINE/METABOLIC Hx Endocrine Disorders: No - HEMATOLOGICAL/ONCOLOGICAL Hx Anemia: Yes Hx Human Immunodeficiency Virus (HIV): No - INTEGUMENTARY Hx Dermatological Problems: No - MUSCULOSKELETAL/RHEUMATOLOGICAL Hx Arthritis: Yes Hx Osteoporosis: Yes Hx Rheumatoid Arthritis: Yes - GASTROINTESTINAL Hx Diverticulitis: Yes Hx Gastritis: Yes - GENITOURINARY/GYNECOLOGICAL Hx Genitourinary Disorders: Yes - PSYCHIATRIC Hx Anxiety: Yes Hx Depression: Yes - SURGICAL HISTORY Hx Appendectomy: Yes Hx Cholecystectomy: No Hx Coronary Stent: Yes ([facility] and [facility] [place]) - ANESTHESIA Hx Anesthesia: Yes Hx Anesthesia Reactions: No Hx Malignant Hyperthermia: No Meds Allergies/Adverse Reactions: Allergies Allergy/AdvReac Type Severity Reaction Status Date / Time No Known Allergies Allergy Verified 07/19/17 21:44 - Medications Medications: Current Medications Sodium Chloride (Sodium Chloride 0.9%) 1,000 mls @ 125 mls/hr IV .Q8H [place] Stop: 07/20/17 22:55 Last Admin: 07/19/17 23:37 Dose: 125 mls/hr Results - Vital Signs Recent Vital Signs: Last Vital Signs Temp 98.3 F 07/19/17 21:44 Pulse 84 07/19/17 23:30 Resp 16 07/19/17 21:44 BP 153/72 H 07/19/17 21:44 Pulse Ox 99 07/19/17 23:13 - Labs Result Diagrams: 07/19/17 22:30 07/19/17 23:23 Labs: Laboratory Results - last 24 hr 07/19/17 07/19/17 07/19/17 22:30 22:30 22:35 WBC 7.6 RBC 3.57 L Hgb 10.5 L Hct 34.4 MCV 96.3 MCH 29.5 MCHC 30.6 L RDW 24.3 H Plt Count 130 MPV 10.1 Neut % (Auto) 53.1 Lymph % (Auto) 33.6 [place] % (Auto) 11.4 H Eos % (Auto) 0.7 Baso % (Auto) 1.2 Neut # (Auto) 4.1 Lymph # (Auto) 2.6 [place] # (Auto) 0.9 H Eos # (Auto) 0.1 Baso # (Auto) 0.1 PT 12.0 INR 1.1 APTT 22.1 L pO2 25 L VBG pH 7.33 VBG pCO2 67 H* VBG HCO3 28.8 VBG Total CO2 37.4 H VBG O2 Sat (Calc) 30.6 L VBG Base Excess 7.0 H VBG Potassium 3.9 Sodium 141.0 Chloride 102.0 Glucose 87 Lactate 3.3 H FiO2 21.0 Crit Value Called To Dr ruddy gordon Crit Value Called By Rt Crit Value Read Back Y Blood Gas Notified Time 2253 Potassium Carbon Dioxide Anion Gap BUN Creatinine Est GFR ( Amer) Est GFR (Non-Af Amer) Random Glucose Calcium Total Bilirubin AST ALT Alkaline Phosphatase Total Protein Albumin Globulin Albumin/Globulin Ratio Venous Blood Potassium 3.9 Influenza Typ A,B (EIA) 07/19/17 07/19/17 22:40 23:23 WBC RBC Hgb Hct MCV MCH MCHC RDW Plt Count MPV Neut % (Auto) Lymph % (Auto) [place] % (Auto) Eos % (Auto) Baso % (Auto) Neut # (Auto) Lymph # (Auto) [place] # (Auto) Eos # (Auto) Baso # (Auto) PT INR APTT pO2 VBG pH VBG pCO2 VBG HCO3 VBG Total CO2 VBG O2 Sat (Calc) VBG Base Excess VBG Potassium Sodium 147 Chloride 100 Glucose Lactate FiO2 Crit Value Called To Crit Value Called By Crit Value Read Back Blood Gas Notified Time Potassium 4.3 Carbon Dioxide 29 Anion Gap 22 H BUN 26 H Creatinine 1.1 Est GFR ( Amer) > 60 Est GFR (Non-Af Amer) 50 Random Glucose 97 Calcium 9.0 Total Bilirubin 0.8 AST 46 H ALT 36 Alkaline Phosphatase 130 H Total Protein 7.5 Albumin 3.9 Globulin 3.6 Albumin/Globulin Ratio 1.1 Venous Blood Potassium Influenza Typ A,B (EIA) Negative for flu a/b Assessment & Plan (1) HCAP (healthcare-associated pneumonia) Assessment and Plan: 61 y/o female with multiple chronic medical conditions and multiple hospitalization, most recently earlier this month, coming in with respiratory failure. 1) Acute on chronic respiratory failure, COPD exac, possible HCAP -Admit tele -Continue HCAP coverage for now as started in ER (Vanc/Cefepime); consider narrowing cvg as appropriate -Duonebs -Patient received 125 mg IV of solumedrol, reassess in AM before continuing -f/u cultures 2) HTN -- continue home medications -- hold metoprolol for persistent bradycardia 3) CHF -- pending BNP, continue home lasix for now 4) RA and SLE -Continue folic acid -Cont plaquenil 5) DVT PPx -- will use SCDs only given intermittent low Plt due to asplenia and prior Hx of GIB Status: Acute (2) Acute respiratory failure with hypoxia Status: Acute (3) COPD exacerbation Status: Acute Priority: High (4) CHF (congestive heart failure) Status: Acute (5) DVT prophylaxis Status: Acute (6) SLE (systemic lupus erythematosus) Status: Chronic Priority: Medium
[2017-07-20] MEDS ORDERED: Sodium Chloride 0.9% 1,000 ML IV SCH (00:49)
[2017-07-20] MEDS ORDERED: Cefepime 2 GM in Sodium Chloride 0.9% 100 ML IVPB SCH ×2 (01:00→21:00)
--- NOTE | 2017-07-20 01:01 | CP.PCM.HP ---
History of Present Illness - History of Present Illness History of Present Illness: History of Present Illness - History of Present Illness History of Present Illness: CC: SOB/cough/?fevers HPI: This is a 61 y/o female with multiple recent admissions for cardiac and respiratory issues, who comes again with respiratory distress. 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 She comes in with 3 days of cough, with difficulty expectorating, SOB, and tactile fevers. Denies n/v/d. Denies dysuria. PMD: Dr. Albright Manager Marketing Communications: Dr. 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, CAD/[place] , HTN, Sleep apnea on CPAP, asthma/COPD on home O2 (still not using), HLD rheumatoid arthritis, SLE, osteoporosis, thrombocytopenia SHx: Carpal tunnel surgery, C- sections x 2, bunion removal,splecectomy Allergies: NKDA Medications: Per med rec Family Hx: Mother had HTN, DM and CABG, Father had CVA HTN and DM Social Hx: was d/c'ed to a SNF from last admission which was just over a week ago, no EtOH, no tobacco currently Surrogate: Daughter, info on chart; patient DNR/DNI Past Patient History - Infectious Disease Hx of Infectious Diseases: None - Tetanus Immunizations Tetanus Immunization: Unknown - Past Medical History & Family History Past Medical History?: Yes - Past Social History Smoking Status: Never Smoked - CARDIAC Hx Cardia Arrhythmia: Yes Hx Congestive Heart Failure: Yes Hx Hypercholesterolemia: Yes Hx Hypertension: Yes Hx Peripheral Edema: Yes - PULMONARY Hx Asthma: Yes Hx Chronic Obstructive Pulmonary Disease (COPD): Yes Hx Sleep Apnea: Yes - NEUROLOGICAL Hx Seizures: No (denies) Hx Transient Ischemic Attacks (TIA): Yes - HEENT Hx HEENT Problems: No - RENAL Hx Chronic Kidney Disease: No - ENDOCRINE/METABOLIC Hx Endocrine Disorders: No - HEMATOLOGICAL/ONCOLOGICAL Hx Anemia: Yes Hx Human Immunodeficiency Virus (HIV): No - INTEGUMENTARY Hx Dermatological Problems: No - MUSCULOSKELETAL/RHEUMATOLOGICAL Hx Arthritis: Yes Hx Osteoporosis: Yes Hx Rheumatoid Arthritis: Yes - GASTROINTESTINAL Hx Diverticulitis: Yes Hx Gastritis: Yes - GENITOURINARY/GYNECOLOGICAL Hx Genitourinary Disorders: Yes - PSYCHIATRIC Hx Anxiety: Yes Hx Depression: Yes - SURGICAL HISTORY Hx Appendectomy: Yes Hx Cholecystectomy: No Hx Coronary Stent: Yes ([facility] and [facility] [place]) - ANESTHESIA Hx Anesthesia: Yes Hx Anesthesia Reactions: No Hx Malignant Hyperthermia: No Meds Allergies/Adverse Reactions: Allergies Allergy/AdvReac Type Severity Reaction Status Date / Time No Known Allergies Allergy Verified 07/19/17 21:44 - Medications Medications: Current Medications Sodium Chloride (Sodium Chloride 0.9%) 1,000 mls @ 125 mls/hr IV .Q8H [place] Stop: 07/20/17 22:55 Last Admin: 07/19/17 23:37 Dose: 125 mls/hr Results - Vital Signs Recent Vital Signs: Last Vital Signs Temp 98.3 F 07/19/17 21:44 Pulse 84 07/19/17 23:30 Resp 16 07/19/17 21:44 BP 153/72 H 07/19/17 21:44 Pulse Ox 99 07/19/17 23:13 - Labs Result Diagrams: 07/19/17 22:30 07/19/17 23:23 Labs: Laboratory Results - last 24 hr 07/19/17 07/19/17 07/19/17 22:30 22:30 22:35 WBC 7.6 RBC 3.57 L Hgb 10.5 L Hct 34.4 MCV 96.3 MCH 29.5 MCHC 30.6 L RDW 24.3 H Plt Count 130 MPV 10.1 Neut % (Auto) 53.1 Lymph % (Auto) 33.6 [place] % (Auto) 11.4 H Eos % (Auto) 0.7 Baso % (Auto) 1.2 Neut # (Auto) 4.1 Lymph # (Auto) 2.6 [place] # (Auto) 0.9 H Eos # (Auto) 0.1 Baso # (Auto) 0.1 PT 12.0 INR 1.1 APTT 22.1 L pO2 25 L VBG pH 7.33 VBG pCO2 67 H* VBG HCO3 28.8 VBG Total CO2 37.4 H VBG O2 Sat (Calc) 30.6 L VBG Base Excess 7.0 H VBG Potassium 3.9 Sodium 141.0 Chloride 102.0 Glucose 87 Lactate 3.3 H FiO2 21.0 Crit Value Called To Dr ruddy gordon Crit Value Called By Rt Crit Value Read Back Y Blood Gas Notified Time 2253 Potassium Carbon Dioxide Anion Gap BUN Creatinine Est GFR ( Amer) Est GFR (Non-Af Amer) Random Glucose Calcium Total Bilirubin AST ALT Alkaline Phosphatase Total Protein Albumin Globulin Albumin/Globulin Ratio Venous Blood Potassium 3.9 Influenza Typ A,B (EIA) 07/19/17 07/19/17 22:40 23:23 WBC RBC Hgb Hct MCV MCH MCHC RDW Plt Count MPV Neut % (Auto) Lymph % (Auto) [place] % (Auto) Eos % (Auto) Baso % (Auto) Neut # (Auto) Lymph # (Auto) [place] # (Auto) Eos # (Auto) Baso # (Auto) PT INR APTT pO2 VBG pH VBG pCO2 VBG HCO3 VBG Total CO2 VBG O2 Sat (Calc) VBG Base Excess VBG Potassium Sodium 147 Chloride 100 Glucose Lactate FiO2 Crit Value Called To Crit Value Called By Crit Value Read Back Blood Gas Notified Time Potassium 4.3 Carbon Dioxide 29 Anion Gap 22 H BUN 26 H Creatinine 1.1 Est GFR ( Amer) > 60 Est GFR (Non-Af Amer) 50 Random Glucose 97 Calcium 9.0 Total Bilirubin 0.8 AST 46 H ALT 36 Alkaline Phosphatase 130 H Total Protein 7.5 Albumin 3.9 Globulin 3.6 Albumin/Globulin Ratio 1.1 Venous Blood Potassium Influenza Typ A,B (EIA) Negative for flu a/b Assessment & Plan (1) HCAP (healthcare-associated pneumonia) Assessment and Plan: 61 y/o female with multiple chronic medical conditions and multiple hospitalization, most recently earlier this month, coming in with respiratory failure. 1) Acute on chronic respiratory failure, COPD exac, possible HCAP -Admit tele -Continue HCAP coverage for now as started in ER (Vanc/Cefepime); consider narrowing cvg as appropriate -Duonebs -Patient received 125 mg IV of solumedrol, reassess in AM before continuing -f/u cultures 2) HTN -- continue home medications -- hold metoprolol for persistent bradycardia 3) CHF -- pending BNP, continue home lasix for now 4) RA and SLE -Continue folic acid -Cont plaquenil 5) DVT PPx -- will use SCDs only given intermittent low Plt due to asplenia and prior Hx of GIB Status: Acute (2) Acute respiratory failure with hypoxia Status: Acute (3) COPD exacerbation Status: Acute Priority: High (4) CHF (congestive heart failure) Status: Acute (5) DVT prophylaxis Status: Acute (6) SLE (systemic lupus erythematosus) Status: Chronic Priority: Medium Present on Admission - Present on Admission Any Indicators Present on Admission: No Past Patient History - Infectious Disease Hx of Infectious Diseases: None - Tetanus Immunizations Tetanus Immunization: Unknown - Past Medical History & Family History Past Medical History?: Yes - Past Social History Smoking Status: Never Smoked - CARDIAC Hx Cardia Arrhythmia: Yes Hx Congestive Heart Failure: Yes Hx Hypercholesterolemia: Yes Hx Hypertension: Yes Hx Peripheral Edema: Yes - PULMONARY Hx Asthma: Yes Hx Chronic Obstructive Pulmonary Disease (COPD): Yes Hx Sleep Apnea: Yes - NEUROLOGICAL Hx Seizures: No (denies) Hx Transient Ischemic Attacks (TIA): Yes - HEENT Hx HEENT Problems: No - RENAL Hx Chronic Kidney Disease: No - ENDOCRINE/METABOLIC Hx Endocrine Disorders: No - HEMATOLOGICAL/ONCOLOGICAL Hx Anemia: Yes Hx Human Immunodeficiency Virus (HIV): No - INTEGUMENTARY Hx Dermatological Problems: No - MUSCULOSKELETAL/RHEUMATOLOGICAL Hx Arthritis: Yes Hx Osteoporosis: Yes Hx Rheumatoid Arthritis: Yes - GASTROINTESTINAL Hx Diverticulitis: Yes Hx Gastritis: Yes - GENITOURINARY/GYNECOLOGICAL Hx Genitourinary Disorders: Yes - PSYCHIATRIC Hx Anxiety: Yes Hx Depression: Yes - SURGICAL HISTORY Hx Appendectomy: Yes Hx Cholecystectomy: No Hx Coronary Stent: Yes ([facility] [place]) - ANESTHESIA Hx Anesthesia: Yes Hx Anesthesia Reactions: No Hx Malignant Hyperthermia: No Meds Allergies/Adverse Reactions: Allergies Allergy/AdvReac Type Severity Reaction Status Date / Time No Known Allergies Allergy Verified 07/19/17 21:44 Physical Exam - Constitutional Appears: No Acute Distress, Chronically Ill - Head Exam Head Exam: ATRAUMATIC, NORMOCEPHALIC - Eye Exam Eye Exam: EOMI, PERRL - ENT Exam ENT Exam: Mucous Membranes Moist Additional comments: on BiPAP - Neck Exam Neck exam: Positive for: Lymphadenopathy - Respiratory Exam Respiratory Exam: Rhonchi, Wheezes - Cardiovascular Exam Cardiovascular Exam: REGULAR RHYTHM, +S1, +S2 - GI/Abdominal Exam GI & Abdominal Exam: Normal Bowel Sounds, Soft - Extremities Exam Extremities exam: Positive for: full ROM, normal inspection - Neurological Exam Neurological exam: Alert, CN II-XII Intact, Oriented x3 - Psychiatric Exam Psychiatric exam: Normal Affect, Normal Mood - Skin Skin Exam: Dry, Warm Results - Vital Signs Recent Vital Signs: Last Vital Signs Temp 98.3 F 07/19/17 21:44 Pulse 84 07/19/17 23:30 Resp 16 07/19/17 21:44 BP 153/72 H 07/19/17 21:44 Pulse Ox 99 07/19/17 23:13 - Labs Result Diagrams: 07/19/17 22:30 07/19/17 23:23 Labs: Laboratory Results - last 24 hr 07/19/17 07/19/17 07/19/17 22:30 22:30 22:35 WBC 7.6 RBC 3.57 L Hgb 10.5 L Hct 34.4 MCV 96.3 MCH 29.5 MCHC 30.6 L RDW 24.3 H Plt Count 130 MPV 10.1 Neut % (Auto) 53.1 Lymph % (Auto) 33.6 [place] % (Auto) 11.4 H Eos % (Auto) 0.7 Baso % (Auto) 1.2 Neut # (Auto) 4.1 Lymph # (Auto) 2.6 [place] # (Auto) 0.9 H Eos # (Auto) 0.1 Baso # (Auto) 0.1 PT 12.0 INR 1.1 APTT 22.1 L pO2 25 L VBG pH 7.33 VBG pCO2 67 H* VBG HCO3 28.8 VBG Total CO2 37.4 H VBG O2 Sat (Calc) 30.6 L VBG Base Excess 7.0 H VBG Potassium 3.9 Sodium 141.0 Chloride 102.0 Glucose 87 Lactate 3.3 H FiO2 21.0 Crit Value Called To Dr ruddy gordon Crit Value Called By Rt Crit Value Read Back Y Blood Gas Notified Time 8213 Potassium Carbon Dioxide Anion Gap BUN Creatinine Est GFR ( Amer) Est GFR (Non-Af Amer) Random Glucose Calcium Total Bilirubin AST ALT Alkaline Phosphatase Total Protein Albumin Globulin Albumin/Globulin Ratio Venous Blood Potassium 3.9 Influenza Typ A,B (EIA) 07/19/17 07/19/17 22:40 23:23 WBC RBC Hgb Hct MCV MCH MCHC RDW Plt Count MPV Neut % (Auto) Lymph % (Auto) [place] % (Auto) Eos % (Auto) Baso % (Auto) Neut # (Auto) Lymph # (Auto) [place] # (Auto) Eos # (Auto) Baso # (Auto) PT INR APTT pO2 VBG pH VBG pCO2 VBG HCO3 VBG Total CO2 VBG O2 Sat (Calc) VBG Base Excess VBG Potassium Sodium 147 Chloride 100 Glucose Lactate FiO2 Crit Value Called To Crit Value Called By Crit Value Read Back Blood Gas Notified Time Potassium 4.3 Carbon Dioxide 29 Anion Gap 22 H BUN 26 H Creatinine 1.1 Est GFR ( Amer) > 60 Est GFR (Non-Af Amer) 50 Random Glucose 97 Calcium 9.0 Total Bilirubin 0.8 AST 46 H ALT 36 Alkaline Phosphatase 130 H Total Protein 7.5 Albumin 3.9 Globulin 3.6 Albumin/Globulin Ratio 1.1 Venous Blood Potassium Influenza Typ A,B (EIA) Negative for flu a/b - EKG Data EKG Interpreted by: Myself EKG shows normal: Sinus rhythm Rate: Normal - EKG Data When Compared to Previous EKG: No Significant Change - Imaging and Cardiology Chest x-ray Status: Image reviewed by me Assessment & Plan (1) HCAP (healthcare-associated pneumonia) Status: Acute (2) Acute respiratory failure with hypoxia Status: Acute (3) COPD exacerbation Status: Acute Priority: High (4) CHF (congestive heart failure) Status: Acute (5) DVT prophylaxis Status: Acute (6) SLE (systemic lupus erythematosus) Status: Chronic Priority: Medium
[2017-07-20 01:03] LABS: TROPONIN I 0.12 ng/mL (0.00-0.120)
[2017-07-20 06:45] LABS: BLOOD UREA NITROGEN 24 mg/dl (7-17); CALCIUM 8.6 mg/dL (8.4-10.2); GFR AFRICAN-AMERICAN > 60; GFR NON-AFRICAN AMERICAN 56
[2017-07-20 07:41] LABS: HEMOGLOBIN 9.3 g/dL (12.0-16.0); MEAN CELL VOLUME 97.5 fl (81.0-99.0); MEAN CORPUSCULAR HEMOGLOBIN 29.6 pg (27.0-31.0); MEAN CORPUSCULAR HGB CONC 30.4 g/dL (33.0-37.0); RBC 3.15 Mil/uL (3.80-5.20); RED CELL DISTRIBUTION WIDTH 24.6 % (11.5-14.5); WHITE BLOOD COUNT 4.8 K/uL (4.8-10.8)
[2017-07-20] MEDS ORDERED: methylPREDNISolone 60 MG in Sodium Chloride 0.9% 50 ML IV SCH (09:00)
--- NOTE | 2017-07-20 09:19 | RAD ---
PROCEDURE: CHEST RADIOGRAPH, 1 VIEW HISTORY: sob, cough COMPARISON: Chest radiograph dated 06/26/2017. FINDINGS: LUNGS: Clear. PLEURA: No pneumothorax or pleural fluid seen. CARDIOVASCULAR: Cardiomediastinal silhouette stably enlarged. OSSEOUS STRUCTURES: Unchanged. VISUALIZED UPPER ABDOMEN: Normal. OTHER FINDINGS: None. IMPRESSION: No active disease.
[2017-07-20] MEDS: Metoprolol Succinate 25 mg XL Tab PO SCH (09:46)
[2017-07-20] MEDS: Enoxaparin 40 mg Syringe SC SCH (09:48)
--- NOTE | 2017-07-20 10:25 | CARD ---
APPROVED REPORT EKG Measurement Heart [id number] ID [id number] <Conclusion> Normal sinus rhythm with sinus arrhythmia Nonspecific T wave abnormality Abnormal ECG
[2017-07-20] MEDS ORDERED: Albuterol-Ipratrop 3 mg / 0.5 (3 ml) UD INH PRN (11:48)
[2017-07-20] MEDS: Albuterol-Ipratrop 3 mg / 0.5 (3 ml) UD INH SCH ×3 (12:31→19:03)
--- NOTE | 2017-07-20 14:05 | CP.PCM.CON ---
History of Present Illness - History of Present Illness History of Present Illness: Pulmonary consult for a 61 y/o F, Hx of Multiple chronic medical conditions, including COPD, Sleep Apnea, CVA x3 with residual deficit, SLE, R/A, resident at [facility], brought by EMS to [facility] on 07/19/16 for evaluation of respiratory distress with increased SOB on night [employer] and associated to wheezing, productive cough x 3 days, tactile fever and chills. Worsening symptoms: REBOLLEDO, SOB at rest, Difficulty in bringing up phlegms. Aggravated factor: Walking/exercise. Pt denied: CP, dizziness, syncope, abdominal pain, n/v/d, urinary symptoms, sick contact. CXR shows: No active pulmonary disease EKG: Normal sinus rhythm with sinus arrhythmia. Review of Systems - Constitutional Constitutional: Chills, Fever, Sleep Apnea, Weakness - EENT Eyes: Other (negative) Ears: Other (negative) Nose/Mouth/Throat: Other (negative) - Cardiovascular Cardiovascular: Orthopnea - Respiratory Respiratory: Cough, Dyspnea, Dyspnea on Exertion, Wheezing - Gastrointestinal Gastrointestinal: Other (negative) - Genitourinary Genitourinary: Other (negative) - Musculoskeletal Musculoskeletal: Arthralgias - Integumentary Integumentary: Other (negative) - Neurological Neurological: Focal Weakness - Psychiatric Psychiatric: Anxiety, Depression - Endocrine Endocrine: Other (negative) - Hematologic/Lymphatic Hematologic: Other (negtive) Past Patient History - Infectious Disease Hx of Infectious Diseases: None - Tetanus Immunizations Tetanus Immunization: Unknown - Past Medical History & Family History Past Medical History?: Yes Pertinent Family History: Mother: HTN, DM, CABG. Father: DM, HTN, CVA. - Past Social History Smoking Status: Never Smoked Alcohol: None Drugs: Denies Home Situation {Lives}: Custodial - CARDIAC Hx Cardiac Disorders: Yes Hx Cardia Arrhythmia: Yes Hx Congestive Heart Failure: Yes Hx Hypercholesterolemia: Yes Hx Hypertension: Yes Hx Peripheral Edema: Yes - PULMONARY Hx Respiratory Disorders: Yes Hx Asthma: Yes Hx Chronic Obstructive Pulmonary Disease (COPD): Yes Hx Sleep Apnea: Yes - NEUROLOGICAL Hx Neurological Disorder: Yes HX Cerebrovascular Accident: Yes Hx Seizures: No (denies) Hx Transient Ischemic Attacks (TIA): Yes - HEENT Hx HEENT Problems: No - RENAL Hx Chronic Kidney Disease: No - ENDOCRINE/METABOLIC Hx Endocrine Disorders: No - HEMATOLOGICAL/ONCOLOGICAL Hx Blood Disorders: Yes Hx Anemia: Yes Hx Human Immunodeficiency Virus (HIV): No - INTEGUMENTARY Hx Dermatological Problems: No - MUSCULOSKELETAL/RHEUMATOLOGICAL Hx Musculoskeletal Disorders: Yes Hx Arthritis: Yes Hx Falls: Yes Hx Osteoporosis: Yes Hx Rheumatoid Arthritis: Yes Other/Comment: SLE - GASTROINTESTINAL Hx Gastrointestinal Disorders: Yes Hx Diverticulitis: Yes Hx Gastritis: Yes - GENITOURINARY/GYNECOLOGICAL Hx Genitourinary Disorders: Yes - PSYCHIATRIC Hx Psychophysiologic Disorder: Yes Hx Anxiety: Yes Hx Depression: Yes Hx Substance Use: No - SURGICAL HISTORY Hx Surgeries: Yes Hx Appendectomy: Yes Hx Cholecystectomy: No Hx Coronary Stent: Yes (Rex perez [facility] [place]) - ANESTHESIA Hx Anesthesia: Yes Hx Anesthesia Reactions: No Hx Malignant Hyperthermia: No Meds Home Medications: Home Medication List Medication Instructions Recorded Confirmed Type Alprazolam [Alprazolam ER] 0.5 mg PO HS #30 tab.er.24h 07/21/17 Rx Atorvastatin [Lipitor] 10 mg PO DIN #30 tab 07/21/17 Rx Clopidogrel [Plavix] 75 mg PO DAILY #30 tab 07/21/17 Rx Docusate [Colace] 100 mg PO DAILY #30 cap 07/21/17 Rx Escitalopram Oxalate 10 mg PO DAILY #30 tablet 07/21/17 Rx Famotidine [Pepcid] 20 mg PO BID #60 tab 07/21/17 Rx Folic Acid 1 mg PO DAILY tab 07/21/17 Rx Folic Acid 1 mg PO DAILY #30 tab 07/21/17 Rx Furosemide [Lasix] 40 mg PO DAILY #30 tab 07/21/17 Rx Hydroxychloroquine Sulfate 200 mg PO Q12H #60 tablet 07/21/17 Rx [Plaquenil] Hyoscyamine Sulfate [Levsin] 0.125 mg PO DAILY #30 tablet 07/21/17 Rx Loratadine [Claritin] 10 mg PO DAILY #30 tab 07/21/17 Rx Meclizine [Antivert] 12.5 mg PO Q12H #60 tab 07/21/17 Rx Meloxicam [Mobic] 7.5 mg PO DAILY #30 tab 07/21/17 Rx Methotrexate Sodium [Trexall] 1 tab PO QWK #4 tablet 07/21/17 Rx Metoprolol Succinate [Toprol Xl] 25 mg PO DAILY #30 tab.er.24h 07/21/17 Rx Mirtazapine [Remeron] 30 mg PO HS #30 tab 07/21/17 Rx Ondansetron HCl [Zofran] 4 mg PO Q6H PRN #10 tablet 07/21/17 Rx Pantoprazole Sodium [Protonix] 40 mg PO DAILY #30 tablet. 07/21/17 Rx Propylene Glycol/Peg 400/Pf 1 drop OU TID #1 droperette 07/21/17 Rx [Lubricant Eye 0.4%-0.3% Drops] Ropinirole HCl 1 mg PO HS #30 tablet 07/21/17 Rx guaiFENesin/Dextromethorphan 10 ml PO Q4 PRN #1 bottle 07/21/17 Rx [Robitussin DM] predniSONE [predniSONE Tab] 10 mg PO DAILY #7 tab 07/21/17 Rx Allergies/Adverse Reactions: Allergies Allergy/AdvReac Type Severity Reaction Status Date / Time No Known Allergies Allergy Verified 07/19/17 21:44 - Medications Medications: Current Medications Acetaminophen (Tylenol 325mg Tab) 650 mg PO Q6 PRN PRN Reason: Fever >100.4 F Albuterol/Ipratropium (Duoneb 3 Mg/0.5 Mg (3 Ml) Ud) 3 ml INH RQID [facility] Last Admin: 07/20/17 12:31 Dose: 3 ml Albuterol/Ipratropium (Duoneb 3 Mg/0.5 Mg (3 Ml) Ud) 3 ml INH RQ4 PRN PRN Reason: Shortness of Breath Atorvastatin Calcium (Lipitor) 10 mg PO DAILY [facility] Last Admin: 07/20/17 09:45 Dose: 10 mg Clopidogrel Bisulfate (Plavix) 75 mg PO DAILY [facility] Last Admin: 07/20/17 09:44 Dose: 75 mg Docusate Sodium (Colace) 100 mg PO DAILY PRN PRN Reason: Constipation Enoxaparin Sodium (Lovenox) 40 mg SC DAILY [facility] PRN Reason: Protocol Last Admin: 07/20/17 09:48 Dose: 40 mg Escitalopram Oxalate (Lexapro) 10 mg PO DAILY [facility] Last Admin: 07/20/17 09:44 Dose: 10 mg Famotidine (Pepcid) 20 mg PO Q12 [facility] Last Admin: 07/20/17 09:45 Dose: 20 mg Folic Acid (Folic Acid) 1 mg PO DAILY [facility] Last Admin: 07/20/17 09:44 Dose: 1 mg Furosemide (Lasix) 40 mg PO DAILY [facility] Last Admin: 07/20/17 09:44 Dose: 40 mg Hydroxychloroquine Sulfate (Plaquenil) 200 mg PO Q12 [facility] PRN Reason: Protocol Last Admin: 07/20/17 09:45 Dose: 200 mg Cefepime HCl 2 gm/ Sodium (Chloride) 100 mls @ 100 mls/hr IVPB Q8 [facility] PRN Reason: Protocol Last Admin: 07/20/17 10:00 Dose: 100 mls/hr Vancomycin HCl 1 gm/ Sodium (Chloride) 250 mls @ 166.667 mls/hr IVPB Q12 [facility] PRN Reason: Protocol Last Admin: 07/20/17 09:00 Dose: 166.667 mls/hr Methotrexate (Methotrexate) 10 mg PO QWK [facility] Methylprednisolone (Solu-Medrol) 60 mg IV Q8 [facility] Last Admin: 07/20/17 09:45 Dose: 60 mg Metoprolol Succinate (Toprol Xl) 25 mg PO DAILY [facility] Last Admin: 07/20/17 09:46 Dose: 25 mg Ondansetron HCl (Zofran Inj) 4 mg IVP Q6 PRN PRN Reason: Nausea/Vomiting Physical Exam - Constitutional Appears: No Acute Distress - Head Exam Head Exam: NORMAL INSPECTION - Eye Exam Eye Exam: PERRL - ENT Exam ENT Exam: Normal Exam - Neck Exam Neck exam: Positive for: Normal Inspection - Respiratory Exam Respiratory Exam: Decreased Breath Sounds (b/l) - Cardiovascular Exam Cardiovascular Exam: REGULAR RHYTHM - GI/Abdominal Exam GI & Abdominal Exam: Normal Bowel Sounds, Soft - Extremities Exam Extremities exam: Positive for: normal inspection - Back Exam Back exam: tenderness - Neurological Exam Neurological exam: Alert, Oriented x3 Additional comments: Mild left sided weakness - Psychiatric Exam Psychiatric exam: Depressed - Skin Skin Exam: Warm Results - Vital Signs Recent Vital Signs: Last Vital Signs Temp 99.4 F 07/20/17 11:58 Pulse 75 07/20/17 12:31 Resp 18 07/20/17 11:58 BP 143/72 07/20/17 11:58 Pulse Ox 96 07/20/17 11:58 reviewed Antonio - Labs Result Diagrams: 07/21/17 06:30 04/28/18 06:30 Labs: Laboratory Results - last 24 hr 07/19/17 07/19/17 07/19/17 22:30 22:30 22:35 WBC 7.6 RBC 3.57 L Hgb 10.5 L Hct 34.4 MCV 96.3 MCH 29.5 MCHC 30.6 L RDW 24.3 H Plt Count 130 MPV 10.1 Neut % (Auto) 53.1 Lymph % (Auto) 33.6 [place] % (Auto) 11.4 H Eos % (Auto) 0.7 Baso % (Auto) 1.2 Neut # (Auto) 4.1 Lymph # (Auto) 2.6 [place] # (Auto) 0.9 H Eos # (Auto) 0.1 Baso # (Auto) 0.1 PT 12.0 INR 1.1 APTT 22.1 L pO2 25 L VBG pH 7.33 VBG pCO2 67 H* VBG HCO3 28.8 VBG Total CO2 37.4 H VBG O2 Sat (Calc) 30.6 L VBG Base Excess 7.0 H VBG Potassium 3.9 Sodium 141.0 Chloride 102.0 Glucose 87 Lactate 3.3 H FiO2 21.0 Crit Value Called To Dr ruddy gordon Crit Value Called By Rt Crit Value Read Back Y Blood Gas Notified Time 2253 Potassium Carbon Dioxide Anion Gap BUN Creatinine Est GFR ( Amer) Est GFR (Non-Af Amer) Random Glucose Lactic Acid Calcium Total Bilirubin AST ALT Alkaline Phosphatase Troponin I NT-Pro-B Natriuret Pep Total Protein Albumin Globulin Albumin/Globulin Ratio Venous Blood Potassium 3.9 Influenza Typ A,B (EIA) 07/19/17 07/19/17 07/20/17 22:40 23:23 00:38 WBC RBC Hgb Hct MCV MCH MCHC RDW Plt Count MPV Neut % (Auto) Lymph % (Auto) [place] % (Auto) Eos % (Auto) Baso % (Auto) Neut # (Auto) Lymph # (Auto) [place] # (Auto) Eos # (Auto) Baso # (Auto) PT INR APTT pO2 VBG pH VBG pCO2 VBG HCO3 VBG Total CO2 VBG O2 Sat (Calc) VBG Base Excess VBG Potassium Sodium 147 Chloride 100 Glucose Lactate FiO2 Crit Value Called To Crit Value Called By Crit Value Read Back Blood Gas Notified Time Potassium 4.3 Carbon Dioxide 29 Anion Gap 22 H BUN 26 H Creatinine 1.1 Est GFR ( Amer) > 60 Est GFR (Non-Af Amer) 50 Random Glucose 97 Lactic Acid Calcium 9.0 Total Bilirubin 0.8 AST 46 H ALT 36 Alkaline Phosphatase 130 H Troponin I 0.1200 NT-Pro-B Natriuret Pep 5190 H Total Protein 7.5 Albumin 3.9 Globulin 3.6 Albumin/Globulin Ratio 1.1 Venous Blood Potassium Influenza Typ A,B (EIA) Negative for flu a/b 07/20/17 07/20/17 07/20/17 05:00 06:00 06:00 WBC 4.8 RBC 3.15 L Hgb 9.3 L Hct 30.7 L MCV 97.5 MCH 29.6 MCHC 30.4 L RDW 24.6 H Plt Count 102 L D MPV Neut % (Auto) Lymph % (Auto) [place] % (Auto) Eos % (Auto) Baso % (Auto) Neut # (Auto) Lymph # (Auto) [place] # (Auto) Eos # (Auto) Baso # (Auto) PT INR APTT pO2 VBG pH VBG pCO2 VBG HCO3 VBG Total CO2 VBG O2 Sat (Calc) VBG Base Excess VBG Potassium Sodium 145 Chloride 102 Glucose Lactate FiO2 Crit Value Called To Crit Value Called By Crit Value Read Back Blood Gas Notified Time Potassium 4.3 Carbon Dioxide 27 Anion Gap 20 BUN 24 H Creatinine 1.0 Est GFR ( Amer) > 60 Est GFR (Non-Af Amer) 56 Random Glucose 133 H Lactic Acid 1.5 Calcium 8.6 Total Bilirubin AST ALT Alkaline Phosphatase Troponin I NT-Pro-B Natriuret Pep Total Protein Albumin Globulin Albumin/Globulin Ratio Venous Blood Potassium Influenza Typ A,B (EIA) reviewed J.P. - EKG Data EKG comments: reviewed J.P. - Imaging and Cardiology Chest x-ray Status: Report reviewed by me (J.P.) Assessment & Plan (1) Acute respiratory failure with hypoxia Status: Acute (2) Chronic respiratory failure with hypoxia Status: Acute (3) COPD exacerbation Status: Acute Priority: High (4) CHF (congestive heart failure) Status: Chronic (5) OLIVIA (obstructive sleep apnea) Status: Chronic Priority: High (6) SLE (systemic lupus erythematosus) Status: Chronic - Assessment and Plan (Free Text) Plan: CT Chest to assess lungs for PNA, continue NC 3 L/M, continue Rocephin, Vanco, Duoneb, Solu-Medrol, and rest of Tx. - Date & Time Date: 07/20/17
[2017-07-20 14:18] VITALS: BMI 36.6
[2017-07-20] MEDS ORDERED: Sodium Chloride 3% for Inhalation 4 ML VIAL.NEB IH PRN (15:03)
[2017-07-20] MEDS: guaiFENesin DM 200 mg-20 mg/10 ml UD PO PRN (16:06)
--- NOTE | 2017-07-20 19:04 | CT ---
PROCEDURE: CT Chest without contrast HISTORY: COPD Exacerbation. COMPARISON: 04/07/2017 TECHNIQUE: Contiguous axial images were obtained through the chest without intravenous contrast enhancement. Sagittal and coronal reconstructions were performed. Radiation dose (DLP): 634.72 mGy-cm. This CT exam was performed using one or more of the following dose reduction techniques: Automated exposure control, adjustment of the mA and/or kV according to patient size, and/or use of iterative reconstruction technique. FINDINGS: LUNGS: No rosemary consolidation. Patchy opacities are noted in the posterior segment of the right upper lobe. There is extensive small airways disease throughout much of the right lower lobe. This is nonspecific. There is subsegmental atelectasis in the left lower lobe, posterior and medial basal segments. There is no pulmonary mass. MEDIASTINUM: Unremarkable thoracic aorta. No aneurysm. Normal sized heart. Main pulmonary artery unremarkable. No vascular congestion. No lymphadenopathy. PLEURA: No pleural fluid. No pneumothorax. BONES: Old compression fractures of multiple vertebrae including T10 through T12 and L1 vertebrae. No new fracture identified. UPPER ABDOMEN: Marked splenic atrophy. Nodular hepatic calcification likely old granuloma. OTHER FINDINGS: None. IMPRESSION: Extensive small airways disease in the right lower lobe, nonspecific. Possible early pneumonia. Patchy opacities in right upper lobe, posterior segment. Multiple chronic thoracolumbar vertebral compression fractures.
[2017-07-21] MEDS: Albuterol-Ipratrop 3 mg / 0.5 (3 ml) UD INH SCH ×4 (07:35→19:26)
[2017-07-21 08:11] LABS: BASO % 0.6 % (0.0-2.0); HEMOGLOBIN 9.4 g/dL (12.0-16.0); LYMPH # 0.3 K/uL (1.0-4.3); MEAN CELL VOLUME 95.6 fl (81.0-99.0); MEAN CORPUSCULAR HEMOGLOBIN 29.7 pg (27.0-31.0); MEAN CORPUSCULAR HGB CONC 31.1 g/dL (33.0-37.0); MEAN PLATELET VOLUME 10.4 fl (7.2-11.7); MONO # 1.1 K/uL (0.0-0.8); MONO % 17.7 % (0.0-10.0); NEUT # 4.9 K/uL (1.8-7.0); NEUT % 76.7 % (50.0-75.0); NRBC % 5.4 % (0.0-0.0); PLATELET COUNT 102 K/uL (130-400); RBC 3.18 Mil/uL (3.80-5.20); RED CELL DISTRIBUTION WIDTH 24.3 % (11.5-14.5); WHITE BLOOD COUNT 6.4 K/uL (4.8-10.8)
--- NOTE | 2017-07-21 09:11 | RAD ---
HISTORY: COMPARISON: 07/19/2017. TECHNIQUE: Chest PA and lateral FINDINGS: LINES AND TUBES: None. LUNG AND PLEURA: The lungs are well inflated and clear. No pleural effusions or pneumothorax. HEART AND MEDIASTINUM: There is persistent mild cardiomegaly. The hilar and mediastinal contours are within normal limits. SKELETAL STRUCTURES: The bony structures are within normal limits for the patient's age. VISUALIZED UPPER ABDOMEN: Normal. OTHER FINDINGS: None. IMPRESSION: No active pulmonary disease.
[2017-07-21 09:25] LABS: SQUAMOUS EPITHIAL 3 /hpf (0-5); URINE BILIRUBIN NEGATIVE (NEGATIVE); URINE BLOOD NEGATIVE (NEGATIVE); URINE CLARITY CLEAR (Clear); URINE COLOR YELLOW (YELLOW); URINE GLUCOSE (UA) NEG (Normal); URINE LEUKOCYTE ESTERASE NEG Leu/uL (Negative); URINE PROTEIN NEGATIVE (NEGATIVE); URINE UROBILINOGEN 0.2-1.0 mg/dL (0.2-1.0)
[2017-07-21 09:26] LABS: ALBUMIN 3.6 g/dL (3.5-5.0); ALT/SGPT 46 U/L (9-52); AST/SGOT 68 U/L (14-36); BLOOD UREA NITROGEN 36 mg/dl (7-17); CALCIUM 8.4 mg/dL (8.4-10.2); GFR AFRICAN-AMERICAN > 60; GFR NON-AFRICAN AMERICAN 56
[2017-07-21] MEDS: guaiFENesin DM 200 mg-20 mg/10 ml UD PO PRN ×2 (09:59→21:04)
[2017-07-21] MEDS: Enoxaparin 40 mg Syringe SC SCH (10:00)
[2017-07-21] MEDS: Metoprolol Succinate 25 mg XL Tab PO SCH (10:00)
--- NOTE | 2017-07-21 10:59 | CP.PCM.DIS ---
Provider - Provider Date of Admission: 07/20/17 00:20 Attending physician: Gunjan Bonilla MD Primary care physician: Dr. Albright Consults: Dr. Thomas- pulmonary Time Spent in preparation of Discharge (in minutes): 25 Hospital Course - Lab Results Lab Results: Micro Results 07/19/17 22:30 Blood Blood Culture - Preliminary NO GROWTH AFTER 24 HOURS 07/19/17 22:40 Blood Blood Culture - Preliminary NO GROWTH AFTER 24 HOURS Most Recent Lab Values WBC 6.4 K/uL (4.8-10.8) 07/21/17 06:30 RBC 3.18 Mil/uL (3.80-5.20) L 07/21/17 06:30 Hgb 9.4 g/dL (12.0-16.0) L 07/21/17 06:30 Hct 30.4 % (34.0-47.0) L 07/21/17 06:30 MCV 95.6 fl (81.0-99.0) 07/21/17 06:30 MCH 29.7 pg (27.0-31.0) 07/21/17 06:30 MCHC 31.1 g/dL (33.0-37.0) L 07/21/17 06:30 RDW 24.3 % (11.5-14.5) H 07/21/17 06:30 Plt Count 102 K/uL (130-400) L 07/21/17 06:30 MPV 10.4 fl (7.2-11.7) 07/21/17 06:30 Neut % (Auto) 76.7 % (50.0-75.0) H 07/21/17 06:30 Lymph % (Auto) 5.0 % (20.0-40.0) L 07/21/17 06:30 [place] % (Auto) 17.7 % (0.0-10.0) H 07/21/17 06:30 Eos % (Auto) 0.0 % (0.0-4.0) 07/21/17 06:30 Baso % (Auto) 0.6 % (0.0-2.0) 07/21/17 06:30 Neut # (Auto) 4.9 K/uL (1.8-7.0) 07/21/17 06:30 Lymph # (Auto) 0.3 K/uL (1.0-4.3) L 07/21/17 06:30 [place] # (Auto) 1.1 K/uL (0.0-0.8) H 07/21/17 06:30 Eos # (Auto) 0.0 K/uL (0.0-0.7) 07/21/17 06:30 Baso # (Auto) 0.0 K/uL (0.0-0.2) 07/21/17 06:30 PT 12.0 Seconds (9.8-13.1) 07/19/17 22:30 INR 1.1 (0.9-1.2) 07/19/17 22:30 APTT 22.1 Seconds (25.6-37.1) L 07/19/17 22:30 pO2 25 mm/Hg (30-55) L 07/19/17 22:35 VBG pH 7.33 (7.32-7.43) 07/19/17 22:35 VBG pCO2 67 mmHg (40-60) H* 07/19/17 22:35 VBG HCO3 28.8 mmol/L 07/19/17 22:35 VBG Total CO2 37.4 mmol/L (22-28) H 07/19/17 22:35 VBG O2 Sat (Calc) 30.6 % (40-65) L 07/19/17 22:35 VBG Base Excess 7.0 mmol/L (0.0-2.0) H 07/19/17 22:35 VBG Potassium 3.9 mmol/L (3.6-5.2) 07/19/17 22:35 Sodium 141.0 mmol/L (132-148) 07/19/17 22:35 Chloride 102.0 mmol/L (98-107) 07/19/17 22:35 Glucose 87 mg/dL (65-105) 07/19/17 22:35 Lactate 3.3 mmol/L (0.7-2.1) H 07/19/17 22:35 FiO2 21.0 % 07/19/17 22:35 Crit Value Called To Dr ruddy gordon 07/19/17 22:35 Crit Value Called By Rt 07/19/17 22:35 Crit Value Read Back Y 07/19/17 22:35 Blood Gas Notified Time 225207/19/17 22:35 Sodium 143 mmol/l (132-148) 07/21/17 06:30 Potassium 4.5 MMOL/L (3.6-5.0) 07/21/17 06:30 Chloride 103 mmol/L (98-107) 07/21/17 06:30 Carbon Dioxide 28 mmol/L (22-30) 07/21/17 06:30 Anion Gap 17 (10-20) 07/21/17 06:30 BUN 36 mg/dl (7-17) H 07/21/17 06:30 Creatinine 1.0 mg/dl (0.7-1.2) 07/21/17 06:30 Est GFR ( Amer) > 60 07/21/17 06:30 Est GFR (Non-Af Amer) 56 07/21/17 06:30 Random Glucose 127 mg/dL (65-105) H 07/21/17 06:30 Lactic Acid 1.5 MMOL/L (0.7-2.1) 07/20/17 05:00 Calcium 8.4 mg/dL (8.4-10.2) 07/21/17 06:30 Total Bilirubin 0.6 mg/dl (0.2-1.3) 07/21/17 06:30 AST 68 U/L (14-36) H D 07/21/17 06:30 ALT 46 U/L (9-52) 07/21/17 06:30 Alkaline Phosphatase 100 U/L (38-126) 07/21/17 06:30 Troponin I 0.1200 ng/mL (0.00-0.120) 07/20/17 00:38 NT-Pro-B Natriuret Pep 5190 pg/ml (0-900) H 07/20/17 00:38 Total Protein 6.9 G/DL (6.3-8.2) 07/21/17 06:30 Albumin 3.6 g/dL (3.5-5.0) 07/21/17 06:30 Globulin 3.4 gm/dL (2.2-3.9) 07/21/17 06:30 Albumin/Globulin Ratio 1.0 (1.0-2.1) 07/21/17 06:30 Venous Blood Potassium 3.9 mmol/L (3.6-5.2) 07/19/17 22:35 Urine Color Yellow (YELLOW) 07/21/17 08:35 Urine Clarity Clear (Clear) 07/21/17 08:35 Urine pH 5.0 (5.0-8.0) 07/21/17 08:35 Ur Specific [place] 1.021 (1.003-1.030) 07/21/17 08:35 Urine Protein Negative mg/dL (NEGATIVE) 07/21/17 08:35 Urine Glucose (UA) Neg mg/dL (Normal) 07/21/17 08:35 Urine Ketones Trace mg/dL (NEGATIVE) 07/21/17 08:35 Urine Blood Negative (NEGATIVE) 07/21/17 08:35 Urine Nitrate Negative (NEGATIVE) 07/21/17 08:35 Urine Bilirubin Negative (NEGATIVE) 07/21/17 08:35 Urine Urobilinogen 0.2-1.0 mg/dL (0.2-1.0) 07/21/17 08:35 Ur Leukocyte Esterase Neg Marcelo/uL (Negative) 07/21/17 08:35 Urine RBC (Auto) 1 /hpf (0-3) 07/21/17 08:35 Urine Microscopic WBC < 1 /hpf (0-5) 07/21/17 08:35 Ur Squamous Epith Cells 3 /hpf (0-5) 07/21/17 08:35 Influenza Typ A,B (EIA) Negative for flu a/b (NEGATIVE) 07/19/17 22:40 - Hospital Course Hospital Course: This is a 61 year old female with past medical history of asthma/COPD, HTN, HLD , RA/SLE, thrombocytopenia 2/2 asplenia, PAH, CAD/TN, and multiple CVAs in past with chronic left sided deficit and slurred speech, who presented to the ED from [facility] for recurrent respiratory distress, dry cough. She was diagnosed with COPD exacerbation. In addition there was concern at the time of admission for HCAP and then patient was started on Vancomycin and Cefepime. During her hospital course, she was seen by Dr. Thomas from pulmonary who ordered CT scan of the chest to evaluate for pneumonia. The CT showed no definite pnuemonia, although it did show small airway/reactive disease consistent with COPD exacerbation. While she was here she recieved duoneb tx, IV Solu-Medrol. She did not show leukocytosis on blood work and remained afebrile. She is able to walk today without repiratory difficulty and feels much better today. She is being discharged back to [facility] in stable condition. 1) Acute on chronic respiratory failure with hypoxia, COPD exac, unlikely to have pneumonia with no fever/leukocytosis and no definite pneumonia even on CT chest -Admit tele - Vanc/Cefepime was given initally, now discontinued as there is no evidence for acute infectious process -Duonebs -To take Prednisone 10 mg po daily x 1 week, then continue 5 mg po daily (she normally takes this dose at home) 2) HTN -- continue home medications -- hold metoprolol for persistent bradycardia 3) CHF -- chronic, no evidence of acute exacerbation, controlled - continued Furosemide 40 mg po daily (home dose) 4) RA and SLE -Continue folic acid -Cont plaquenil 5) DVT PPx -- used SCDs only given intermittent low Plt due to asplenia and prior Hx of GIB Discharge Exam - Head Exam Head Exam: NORMAL INSPECTION - Additional Findings Additional findings: Physical exam: Constitutional- cooperative, awake, alert Head- NCAT, PERRL Eye- PERRL, EOMI ENT- normal exam, MMM. Neck- normal inspection, supple, no JVD Respiratory- CTAB, no wheezes rales rhonchi Cardiovascular- RRR, +S1, +S2 no MRG GI/Abdominal- normal bowel sounds, soft, no mass, no hsm Skin- warm, dry Extremities Exam- normal capillary refill, normal inspection Neurological Exam- alert, awake, oriented Psych- normal mood, normal affect Discharge Plan - Discharge Medications Prescriptions: guaiFENesin/Dextromethorphan [Robitussin DM] 10 ml PO Q4 PRN #1 bottle PRN Reason: Cough predniSONE [predniSONE Tab] 10 mg PO DAILY #7 tab - Follow Up Plan Condition: GOOD Disposition: REHAB FACILITY/REHAB UNIT
[2017-07-21 11:55] LABS: ANISOCYTOSIS MARKED; BANDS 3 % (0-2); LYMPHOCYTE 8 % (20-50); MONOCYTE 10 % (0-10); NEUTROPHIL 79 % (42-75); NUCLEATED RED BLOOD CELL 4 % (0-0); PLATELET ESTIMATE DECREASED (NORMAL); TOTAL CELLS COUNTED 100
[2017-07-21 11:56] LABS: HYPOCHROMIC MODERATE; LARGE PLATELETS PRESENT; OVALOCYTES SLIGHT; SCHISTOCYTES SLIGHT; TEARDROP CELLS SLIGHT; TOXIC GRANULATION PRESENT
[2017-07-21 12:57] LABS: ABG ALLEN TEST YES; ARTERIAL BLOOD GAS HCO3 26.9 mmol/L (21-28); ARTERIAL BLOOD GAS HEMOGLOBIN 9.1 g/dL (11.7-17.4); ARTERIAL BLOOD GAS O2 CAPACITY 12.5 mL/dL (16-24); ARTERIAL BLOOD GAS O2 CONTENT 12.3 ML/dL (15-23); ARTERIAL BLOOD GAS O2 SAT 98.4 % (95-98); ARTERIAL BLOOD GAS PCO2 41 mm/Hg (35-45); ARTERIAL BLOOD GAS PH 7.43 (7.35-7.45); ARTERIAL BLOOD GAS PO2 74 mm/Hg (80-100); ARTERIAL BLOOD GAS TCO2 28.5 mmol/L (22-28)
--- NOTE | 2017-07-21 13:14 | CP.PCM.PN ---
Subjective - Date & Time of Evaluation Date of Evaluation: 07/21/17 Time of Evaluation: 10:00 - Subjective Subjective: Patient seen and examined at bedside. Still c/o cough and congestion with intermittent shortness of breath. Denies any chest pain, vomiting, constipation , diarrhea, headache. Objective - Vital Signs/Intake and Output Vital Signs (last 24 hours): Temp Pulse Resp BP Pulse Ox 98.5 F 70 18 120/68 98 07/21/17 12:00 07/21/17 12:00 07/21/17 12:00 07/21/17 12:00 07/21/17 12:00 - Medications Medications: Current Medications Acetaminophen (Tylenol 325mg Tab) 650 mg PO Q6 PRN PRN Reason: Fever >100.4 F Albuterol/Ipratropium (Duoneb 3 Mg/0.5 Mg (3 Ml) Ud) 3 ml INH RQID [facility] Last Admin: 07/21/17 11:06 Dose: 3 ml Albuterol/Ipratropium (Duoneb 3 Mg/0.5 Mg (3 Ml) Ud) 3 ml INH RQ4 PRN PRN Reason: Shortness of Breath Atorvastatin Calcium (Lipitor) 10 mg PO DAILY [facility] Last Admin: 07/21/17 10:00 Dose: 10 mg Clopidogrel Bisulfate (Plavix) 75 mg PO DAILY [facility] Last Admin: 07/21/17 10:00 Dose: 75 mg Docusate Sodium (Colace) 100 mg PO DAILY PRN PRN Reason: Constipation Enoxaparin Sodium (Lovenox) 40 mg SC DAILY [facility] PRN Reason: Protocol Last Admin: 07/21/17 10:00 Dose: 40 mg Escitalopram Oxalate (Lexapro) 10 mg PO DAILY [facility] Last Admin: 07/21/17 10:00 Dose: 10 mg Famotidine (Pepcid) 20 mg PO Q12 [facility] Last Admin: 07/21/17 10:00 Dose: 20 mg Folic Acid (Folic Acid) 1 mg PO DAILY [facility] Last Admin: 07/21/17 10:00 Dose: 1 mg Furosemide (Lasix) 40 mg PO DAILY [facility] Last Admin: 07/21/17 10:00 Dose: 40 mg Guaifenesin/Dextromethorphan (Robitussin Dm) 10 ml PO Q4 PRN PRN Reason: Cough Last Admin: 07/21/17 09:59 Dose: 10 ml Hydroxychloroquine Sulfate (Plaquenil) 200 mg PO Q12 [facility] PRN Reason: Protocol Last Admin: 07/21/17 10:00 Dose: 200 mg Methotrexate (Methotrexate) 10 mg PO FRI [facility] Last Admin: 07/20/17 16:07 Dose: 10 mg Methylprednisolone (Solu-Medrol) 60 mg IV Q8 [facility] Last Admin: 07/21/17 10:00 Dose: 60 mg Metoprolol Succinate (Toprol Xl) 25 mg PO DAILY [facility] Last Admin: 07/21/17 10:00 Dose: 25 mg Ondansetron HCl (Zofran Inj) 4 mg IVP Q6 PRN PRN Reason: Nausea/Vomiting - Labs Labs: 07/21/17 06:30 07/21/17 06:30 PT 12.0 Seconds (9.8-13.1) 07/19/17 22:30 INR 1.1 (0.9-1.2) 07/19/17 22:30 APTT 22.1 Seconds (25.6-37.1) L 07/19/17 22:30 - Additional Findings Additional findings: Physical exam: Constitutional- cooperative, awake, alert Head- NCAT, PERRL Eye- PERRL, EOMI ENT- normal exam, MMM. 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 She was diagnosed with COPD exacerbation. In addition there was concern at the time of admission for HCAP and then patient was started on Vancomycin and Cefepime. During her hospital course, she was seen by Dr. Thomas from pulmonary who ordered CT scan of the chest to evaluate for pneumonia. The CT showed no definite pnuemonia, although it did show small airway/reactive disease consistent with COPD exacerbation. Antibiotics were stopped on 07/21/2017. She is recieving duoneb tx, IV Solu-Medrol. She did not show leukocytosis on blood work and remained afebrile. Continuing to slowly improve 1) Acute on chronic respiratory failure with hypoxia, COPD exac, unlikely to have pneumonia with no fever/leukocytosis and no definite pneumonia on CT chest -Admit tele, now stable for transfer to med/surg floor. - Vanc/Cefepime was given initally, now discontinued as there is no evidence for acute infectious process -Duonebs - Continue IV solumedrol 60 mg IV q 8 hours - Dr. Thomas on pulmonary consultation 2) HTN -- continue home medications -- hold metoprolol for persistent bradycardia 3) CHF -- chronic, no evidence of acute exacerbation, controlled - continued Furosemide 40 mg po daily (home dose) 4) RA and SLE -Continue folic acid -Cont plaquenil 5) DVT PPx -- used SCDs only given intermittent low Plt due to asplenia and prior Hx of GIB
--- NOTE | 2017-07-21 15:24 | CP.PCM.PN ---
Subjective - Date & Time of Evaluation Date of Evaluation: 07/21/17 Time of Evaluation: 11:00 - Subjective Subjective: F/U Respiratory failure. Paroxysmal cough , intermittent shortness of breath with O2 NC , dyspnea on exertion with O2 Objective - Vital Signs/Intake and Output Vital Signs (last 24 hours): Temp Pulse Resp BP Pulse Ox 98.5 F 70 18 120/68 98 07/21/17 12:00 07/21/17 12:00 07/21/17 12:00 07/21/17 12:00 07/21/17 12:00 - Medications Medications: Current Medications Acetaminophen (Tylenol 325mg Tab) 650 mg PO Q6 PRN PRN Reason: Fever >100.4 F Albuterol/Ipratropium (Duoneb 3 Mg/0.5 Mg (3 Ml) Ud) 3 ml INH RQID [facility] Last Admin: 07/21/17 15:11 Dose: 3 ml Albuterol/Ipratropium (Duoneb 3 Mg/0.5 Mg (3 Ml) Ud) 3 ml INH RQ4 PRN PRN Reason: Shortness of Breath Last Admin: 07/21/17 13:22 Dose: 3 ml Atorvastatin Calcium (Lipitor) 10 mg PO DAILY [facility] Last Admin: 07/21/17 10:00 Dose: 10 mg Clopidogrel Bisulfate (Plavix) 75 mg PO DAILY [facility] Last Admin: 07/21/17 10:00 Dose: 75 mg Docusate Sodium (Colace) 100 mg PO DAILY PRN PRN Reason: Constipation Enoxaparin Sodium (Lovenox) 40 mg SC DAILY [facility] PRN Reason: Protocol Last Admin: 07/21/17 10:00 Dose: 40 mg Escitalopram Oxalate (Lexapro) 10 mg PO DAILY [facility] Last Admin: 07/21/17 10:00 Dose: 10 mg Famotidine (Pepcid) 20 mg PO Q12 [facility] Last Admin: 07/21/17 10:00 Dose: 20 mg Folic Acid (Folic Acid) 1 mg PO DAILY [facility] Last Admin: 07/21/17 10:00 Dose: 1 mg Furosemide (Lasix) 40 mg PO DAILY [facility] Last Admin: 07/21/17 10:00 Dose: 40 mg Guaifenesin/Dextromethorphan (Robitussin Dm) 10 ml PO Q4 PRN PRN Reason: Cough Last Admin: 07/21/17 09:59 Dose: 10 ml Hydroxychloroquine Sulfate (Plaquenil) 200 mg PO Q12 [facility] PRN Reason: Protocol Last Admin: 07/21/17 10:00 Dose: 200 mg Methotrexate (Methotrexate) 10 mg PO FRI [facility] Last Admin: 07/20/17 16:07 Dose: 10 mg Methylprednisolone (Solu-Medrol) 60 mg IV Q8 [facility] Last Admin: 07/21/17 10:00 Dose: 60 mg Metoprolol Succinate (Toprol Xl) 25 mg PO DAILY [facility] Last Admin: 07/21/17 10:00 Dose: 25 mg Ondansetron HCl (Zofran Inj) 4 mg IVP Q6 PRN PRN Reason: Nausea/Vomiting - Labs Labs: 07/21/17 06:30 07/21/17 06:30 PT 12.0 Seconds (9.8-13.1) 07/19/17 22:30 INR 1.1 (0.9-1.2) 07/19/17 22:30 APTT 22.1 Seconds (25.6-37.1) L 07/19/17 22:30 - Constitutional Appears: Chronically Ill - Head Exam Head Exam: NORMOCEPHALIC - Eye Exam Eye Exam: PERRL - ENT Exam ENT Exam: Normal Exam - Neck Exam Neck Exam: Normal Inspection - Respiratory Exam Respiratory Exam: Decreased Breath Sounds, Rhonchi (scattered) - Cardiovascular Exam Cardiovascular Exam: REGULAR RHYTHM - GI/Abdominal Exam GI & Abdominal Exam: Soft, Normal Bowel Sounds - Extremities Exam Extremities Exam: Pedal Edema - Back Exam Back Exam: NORMAL INSPECTION, tenderness - Neurological Exam Neurological Exam: Alert, CN II-XII Intact Additional comments: mild Left sided weakness - Psychiatric Exam Psychiatric exam: Anxious - Skin Skin Exam: Warm Assessment and Plan (1) Acute respiratory failure with hypoxia Status: Acute (2) Chronic respiratory failure with hypoxia Status: Chronic (3) COPD exacerbation Status: Acute (4) OLIVIA (obstructive sleep apnea) Status: Chronic (5) CHF (congestive heart failure) Assessment & Plan: Chronic Status: Chronic (6) SLE (systemic lupus erythematosus) Status: Chronic (7) History of CVA (cerebrovascular accident) without residual deficits Status: Chronic - Assessment and Plan (Free Text) Plan: Continue O2 , Solu-Medrol, DuoNeb , add Prometh with Codeine , continue rest of treatment.
[2017-07-21] MEDS ORDERED: Promethazine/Cod 6.25mg-10mg/5ml Syr UD PO PRN (16:34)
[2017-07-22] MEDS: Albuterol-Ipratrop 3 mg / 0.5 (3 ml) UD INH SCH ×4 (07:33→19:00)
[2017-07-22] MEDS: Enoxaparin 40 mg Syringe SC SCH (08:52)
[2017-07-22] MEDS: Metoprolol Succinate 25 mg XL Tab PO SCH (08:55)
[2017-07-22] MEDS: guaiFENesin DM 200 mg-20 mg/10 ml UD PO PRN (08:56)
[2017-07-22] MEDS: Artificial Tears Opht Soln OU PRN (10:36)
--- NOTE | 2017-07-22 11:09 | CP.PCM.PN ---
Subjective - Date & Time of Evaluation Date of Evaluation: 07/22/17 Time of Evaluation: 11:00 - Subjective Subjective: Patient seen and examined at bedside. Worsening cough today and with more dyspnea on exertion. c/o chest congestion more today as well. Objective - Vital Signs/Intake and Output Vital Signs (last 24 hours): Temp Pulse Resp BP Pulse Ox 97.5 F L 59 L 20 145/82 94 L 07/22/17 08:56 07/22/17 08:56 07/22/17 08:56 07/22/17 08:56 07/22/17 08:56 - Medications Medications: Current Medications Acetaminophen (Tylenol 325mg Tab) 650 mg PO Q6 PRN PRN Reason: Fever >100.4 F Albuterol/Ipratropium (Duoneb 3 Mg/0.5 Mg (3 Ml) Ud) 3 ml INH RQID [facility] Last Admin: 07/22/17 07:33 Dose: 3 ml Albuterol/Ipratropium (Duoneb 3 Mg/0.5 Mg (3 Ml) Ud) 3 ml INH RQ4 PRN PRN Reason: Shortness of Breath Last Admin: 07/21/17 13:22 Dose: 3 ml Alprazolam (Xanax) 0.5 mg PO HS [facility] Last Admin: 07/21/17 23:15 Dose: 0.5 mg Artificial Tears (Artificial Tears) 2 drop OU Q6 PRN PRN Reason: Dry eyes Last Admin: 07/22/17 10:36 Dose: 2 drop Atorvastatin Calcium (Lipitor) 10 mg PO DAILY [facility] Last Admin: 07/22/17 08:52 Dose: 10 mg Clopidogrel Bisulfate (Plavix) 75 mg PO DAILY [facility] Last Admin: 07/22/17 08:53 Dose: 75 mg Docusate Sodium (Colace) 100 mg PO DAILY PRN PRN Reason: Constipation Enoxaparin Sodium (Lovenox) 40 mg SC DAILY [facility] PRN Reason: Protocol Last Admin: 07/22/17 08:52 Dose: 40 mg Escitalopram Oxalate (Lexapro) 10 mg PO DAILY [facility] Last Admin: 07/22/17 08:51 Dose: 10 mg Famotidine (Pepcid) 20 mg PO Q12 [facility] Last Admin: 07/22/17 08:53 Dose: 20 mg Folic Acid (Folic Acid) 1 mg PO DAILY [facility] Last Admin: 07/22/17 08:50 Dose: 1 mg Furosemide (Lasix) 40 mg PO DAILY [facility] Last Admin: 07/22/17 08:51 Dose: 40 mg Guaifenesin/Dextromethorphan (Robitussin Dm) 10 ml PO Q4 PRN PRN Reason: Cough Last Admin: 07/22/17 08:56 Dose: 10 ml Hydroxychloroquine Sulfate (Plaquenil) 200 mg PO Q12 [facility] PRN Reason: Protocol Last Admin: 07/22/17 08:53 Dose: 200 mg Methotrexate (Methotrexate) 10 mg PO FRI [facility] Last Admin: 07/20/17 16:07 Dose: 10 mg Methylprednisolone (Solu-Medrol) 60 mg IV Q8 [facility] Last Admin: 07/22/17 08:54 Dose: 60 mg Metoprolol Succinate (Toprol Xl) 25 mg PO DAILY [facility] Last Admin: 07/22/17 08:55 Dose: Not Given Mirtazapine (Remeron) 30 mg PO HS [facility] Last Admin: 07/21/17 23:15 Dose: 30 mg Ondansetron HCl (Zofran Inj) 4 mg IVP Q6 PRN PRN Reason: Nausea/Vomiting Promethazine HCl/Codeine (Phenergan/Codeine Oral Syrup) 5 ml PO Q6 PRN PRN Reason: Cough - Labs Labs: 07/21/17 06:30 07/21/17 06:30 PT 12.0 Seconds (9.8-13.1) 07/19/17 22:30 INR 1.1 (0.9-1.2) 07/19/17 22:30 APTT 22.1 Seconds (25.6-37.1) L 07/19/17 22:30 - Additional Findings Additional findings: Physical exam: Constitutional- cooperative, awake, alert Head- NCAT, PERRL Eye- PERRL, EOMI ENT- normal exam, MMM. 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 She was diagnosed with COPD exacerbation. In addition there was concern at the time of admission for HCAP and then patient was started on Vancomycin and Cefepime. During her hospital course, she was seen by Dr. Thomas from pulmonary who ordered CT scan of the chest to evaluate for pneumonia. The CT showed no definite pnuemonia, although it did show small airway/reactive disease consistent with COPD exacerbation. Antibiotics were stopped on 07/21/2017. She is recieving duoneb tx, IV Solu-Medrol. She did not show leukocytosis on blood work and remained afebrile. Continuing to slowly improve 1) Acute on chronic respiratory failure with hypoxia, COPD exac, unlikely to have pneumonia with no fever/leukocytosis and no definite pneumonia on CT chest - continues to have cough and congestion - Vanc/Cefepime was given initally, now discontinued as there is no evidence for acute infectious process -Duonebs - Continue IV solumedrol 60 mg IV q 8 hours - Dr. Thomas on pulmonary consultation 2) HTN -- continue home medications -- hold metoprolol for persistent bradycardia 3) CHF -- chronic, no evidence of acute exacerbation, controlled - continued Furosemide 40 mg po daily (home dose) 4) RA and SLE -Continue folic acid -Cont plaquenil 5) DVT PPx -- used SCDs only given intermittent low Plt due to asplenia and prior Hx of GIB
[2017-07-22] MEDS ORDERED: Promethazine/Cod 6.25mg-10mg/5ml Syr UD PO PRN (14:29)
--- NOTE | 2017-07-22 14:41 | CP.PCM.PN ---
Subjective - Date & Time of Evaluation Date of Evaluation: 07/22/17 Time of Evaluation: 11:00 - Subjective Subjective: F/U Respiratory Failure Objective - Vital Signs/Intake and Output Vital Signs (last 24 hours): Temp Pulse Resp BP Pulse Ox 97.4 F L 69 20 130/72 99 07/22/17 13:49 07/22/17 13:49 07/22/17 13:49 07/22/17 13:49 07/22/17 13:49 - Medications Medications: Current Medications Acetaminophen (Tylenol 325mg Tab) 650 mg PO Q6 PRN PRN Reason: Fever >100.4 F Albuterol/Ipratropium (Duoneb 3 Mg/0.5 Mg (3 Ml) Ud) 3 ml INH RQID [facility] Last Admin: 07/22/17 11:17 Dose: 3 ml Albuterol/Ipratropium (Duoneb 3 Mg/0.5 Mg (3 Ml) Ud) 3 ml INH RQ4 PRN PRN Reason: Shortness of Breath Last Admin: 07/21/17 13:22 Dose: 3 ml Alprazolam (Xanax) 0.5 mg PO HS [facility] Last Admin: 07/21/17 23:15 Dose: 0.5 mg Artificial Tears (Artificial Tears) 2 drop OU Q6 PRN PRN Reason: Dry eyes Last Admin: 07/22/17 10:36 Dose: 2 drop Atorvastatin Calcium (Lipitor) 10 mg PO DAILY [facility] Last Admin: 07/22/17 08:52 Dose: 10 mg Clopidogrel Bisulfate (Plavix) 75 mg PO DAILY [facility] Last Admin: 07/22/17 08:53 Dose: 75 mg Docusate Sodium (Colace) 100 mg PO DAILY PRN PRN Reason: Constipation Enoxaparin Sodium (Lovenox) 40 mg SC DAILY [facility] PRN Reason: Protocol Last Admin: 07/22/17 08:52 Dose: 40 mg Escitalopram Oxalate (Lexapro) 10 mg PO DAILY [facility] Last Admin: 07/22/17 08:51 Dose: 10 mg Famotidine (Pepcid) 20 mg PO Q12 [facility] Last Admin: 07/22/17 08:53 Dose: 20 mg Folic Acid (Folic Acid) 1 mg PO DAILY [facility] Last Admin: 07/22/17 08:50 Dose: 1 mg Furosemide (Lasix) 40 mg PO DAILY [facility] Last Admin: 07/22/17 08:51 Dose: 40 mg Guaifenesin/Dextromethorphan (Robitussin Dm) 10 ml PO Q4 PRN PRN Reason: Cough Last Admin: 07/22/17 08:56 Dose: 10 ml Hydroxychloroquine Sulfate (Plaquenil) 200 mg PO Q12 [facility] PRN Reason: Protocol Last Admin: 07/22/17 08:53 Dose: 200 mg Methotrexate (Methotrexate) 10 mg PO FRI [facility] Last Admin: 07/20/17 16:07 Dose: 10 mg Methylprednisolone (Solu-Medrol) 60 mg IV Q8 [facility] Last Admin: 07/22/17 08:54 Dose: 60 mg Metoprolol Succinate (Toprol Xl) 25 mg PO DAILY [facility] Last Admin: 07/22/17 08:55 Dose: Not Given Mirtazapine (Remeron) 30 mg PO HS [facility] Last Admin: 07/21/17 23:15 Dose: 30 mg Ondansetron HCl (Zofran Inj) 4 mg IVP Q6 PRN PRN Reason: Nausea/Vomiting Promethazine HCl/Codeine (Phenergan/Codeine Oral Syrup) 10 ml PO Q4H PRN PRN Reason: Cough Promethazine HCl/Codeine (Phenergan/Codeine Oral Syrup) 10 ml PO Q8 [facility] - Labs Labs: 07/21/17 06:30 07/21/17 06:30 PT 12.0 Seconds (9.8-13.1) 07/19/17 22:30 INR 1.1 (0.9-1.2) 07/19/17 22:30 APTT 22.1 Seconds (25.6-37.1) L 07/19/17 22:30 - Constitutional Appears: Chronically Ill - Head Exam Head Exam: NORMAL INSPECTION - Eye Exam Eye Exam: PERRL - ENT Exam ENT Exam: Normal Exam - Neck Exam Neck Exam: Normal Inspection - Respiratory Exam Respiratory Exam: Decreased Breath Sounds, Rhonchi (scattered) - Cardiovascular Exam Cardiovascular Exam: REGULAR RHYTHM - GI/Abdominal Exam GI & Abdominal Exam: Soft, Normal Bowel Sounds - Extremities Exam Extremities Exam: Pedal Edema - Neurological Exam Neurological Exam: Alert, CN II-XII Intact Additional comments: mild L sided weakness. - Psychiatric Exam Psychiatric exam: Anxious - Skin Skin Exam: Warm Assessment and Plan (1) Acute respiratory failure with hypoxia Status: Acute (2) Chronic respiratory failure with hypoxia Status: Chronic (3) COPD exacerbation Status: Acute (4) OLIVIA (obstructive sleep apnea) Status: Chronic (5) CHF (congestive heart failure) Status: Chronic (6) SLE (systemic lupus erythematosus) Status: Chronic (7) History of CVA (cerebrovascular accident) without residual deficits Status: Chronic
[2017-07-22] MEDS: Promethazine/Cod 6.25mg-10mg/5ml Syr UD PO SCH (16:39)
[2017-07-23] MEDS: guaiFENesin DM 200 mg-20 mg/10 ml UD PO PRN (01:01)
[2017-07-23] MEDS: Albuterol-Ipratrop 3 mg / 0.5 (3 ml) UD INH SCH ×2 (08:01→11:05)
[2017-07-23 08:11] VITALS: RESP 20
[2017-07-23] MEDS ORDERED: MethylPREDNISolone 40 mg Vial IV SCH (08:30)
[2017-07-23] MEDS ORDERED: guaiFENesin DM 200 mg-20 mg/10 ml UD PO SCH (09:00)
[2017-07-23] MEDS: Artificial Tears Opht Soln OU PRN (09:02)
[2017-07-23] MEDS: Enoxaparin 40 mg Syringe SC SCH (09:04)
[2017-07-23] MEDS: Metoprolol Succinate 25 mg XL Tab PO SCH (09:06)
[2017-07-23] MEDS: Promethazine/Cod 6.25mg-10mg/5ml Syr UD PO SCH (09:11)
[2017-07-23] MEDS: Nystatin 100,000 Units/ml Oral Susp 5 ml UD PO SCH ×2 (09:47→12:52)
--- NOTE | 2017-07-23 11:08 | CP.PCM.DIS ---
Provider - Provider Date of Admission: 07/20/17 00:28 Attending physician: Gunjan Bonilla MD Primary care physician: Dr Albright Consults: Pulm: Dr Thomas Time Spent in preparation of Discharge (in minutes): 35 Diagnosis - Discharge Diagnosis (1) Acute respiratory failure with hypoxia Status: Acute (2) Chronic respiratory failure with hypoxia Status: Chronic (3) COPD exacerbation Status: Acute Priority: High (4) CHF (congestive heart failure) Status: Chronic (5) SLE (systemic lupus erythematosus) Status: Chronic Hospital Course - Lab Results Lab Results: Micro Results 07/19/17 22:30 Blood Blood Culture - Preliminary NO GROWTH AFTER 3 DAYS 07/19/17 22:40 Blood Blood Culture - Preliminary NO GROWTH AFTER 3 DAYS Most Recent Lab Values WBC 6.4 K/uL (4.8-10.8) 07/21/17 06:30 RBC 3.18 Mil/uL (3.80-5.20) L 07/21/17 06:30 Hgb 9.4 g/dL (12.0-16.0) L 07/21/17 06:30 Hct 30.4 % (34.0-47.0) L 07/21/17 06:30 MCV 95.6 fl (81.0-99.0) 07/21/17 06:30 MCH 29.7 pg (27.0-31.0) 07/21/17 06:30 MCHC 31.1 g/dL (33.0-37.0) L 07/21/17 06:30 RDW 24.3 % (11.5-14.5) H 07/21/17 06:30 Plt Count 102 K/uL (130-400) L 07/21/17 06:30 MPV 10.4 fl (7.2-11.7) 07/21/17 06:30 Neut % (Auto) 76.7 % (50.0-75.0) H 07/21/17 06:30 Lymph % (Auto) 5.0 % (20.0-40.0) L 07/21/17 06:30 [place]arton % (Auto) 17.7 % (0.0-10.0) H 07/21/17 06:30 Eos % (Auto) 0.0 % (0.0-4.0) 07/21/17 06:30 Baso % (Auto) 0.6 % (0.0-2.0) 07/21/17 06:30 Neut # (Auto) 4.9 K/uL (1.8-7.0) 07/21/17 06:30 Lymph # (Auto) 0.3 K/uL (1.0-4.3) L 07/21/17 06:30 Wharton # (Auto) 1.1 K/uL (0.0-0.8) H 07/21/17 06:30 Eos # (Auto) 0.0 K/uL (0.0-0.7) 07/21/17 06:30 Baso # (Auto) 0.0 K/uL (0.0-0.2) 07/21/17 06:30 Neutrophils % (Manual) 79 % (42-75) H 07/21/17 06:30 Band Neutrophils % 3 % (0-2) H 07/21/17 06:30 Lymphocytes % (Manual) 8 % (20-50) L 07/21/17 06:30 Monocytes % (Manual) 10 % (0-10) 07/21/17 06:30 Nucleated RBC % 4 % (0-0) H 07/21/17 06:30 Toxic Granulation Present 07/21/17 06:30 Platelet Estimate Decreased (NORMAL) L 07/21/17 06:30 Large Platelets Present 07/21/17 06:30 Hypochromasia (manual) Moderate 07/21/17 06:30 Anisocytosis (manual) Marked 07/21/17 06:30 Tear Drop Cells Slight 07/21/17 06:30 Ovalocytes Slight 07/21/17 06:30 Schistocytes Slight 07/21/17 06:30 PT 12.0 Seconds (9.8-13.1) 07/19/17 22:30 INR 1.1 (0.9-1.2) 07/19/17 22:30 APTT 22.1 Seconds (25.6-37.1) L 07/19/17 22:30 pCO2 41 mm/Hg (35-45) 07/21/17 12:41 pO2 74 mm/Hg (80-100) L 07/21/17 12:41 HCO3 26.9 mmol/L (21-28) 07/21/17 12:41 ABG pH 7.43 (7.35-7.45) 07/21/17 12:41 ABG Total CO2 28.5 mmol/L (22-28) H 07/21/17 12:41 ABG O2 Saturation 98.4 % (95-98) H 07/21/17 12:41 ABG O2 Content 12.3 ML/dL (15-23) L 07/21/17 12:41 ABG Base Excess 2.6 mmol/L (-2.0-3.0) 07/21/17 12:41 ABG Hemoglobin 9.1 g/dL (11.7-17.4) L 07/21/17 12:41 ABG Carboxyhemoglobin 1.9 % (0.5-1.5) H 07/21/17 12:41 POC ABG HHb (Measured) 1.6 % (0.0-5.0) 07/21/17 12:41 ABG Methemoglobin 0.8 % (0.0-3.0) 07/21/17 12:41 ABG O2 Capacity 12.5 mL/dL (16-24) L 07/21/17 12:41 Gio Test Yes 07/21/17 12:41 VBG pH 7.33 (7.32-7.43) 07/19/17 22:35 VBG pCO2 67 mmHg (40-60) H* 07/19/17 22:35 VBG HCO3 28.8 mmol/L 07/19/17 22:35 VBG Total CO2 37.4 mmol/L (22-28) H 07/19/17 22:35 VBG O2 Sat (Calc) 30.6 % (40-65) L 07/19/17 22:35 VBG Base Excess 7.0 mmol/L (0.0-2.0) H 07/19/17 22:35 VBG Potassium 3.9 mmol/L (3.6-5.2) 07/19/17 22:35 A-a O2 Difference 103.0 mm/Hg 07/21/17 12:41 Hgb O2 Saturation 95.7 % (95.0-98.0) 07/21/17 12:41 Sodium 141.0 mmol/L (132-148) 07/19/17 22:35 Chloride 102.0 mmol/L (98-107) 07/19/17 22:35 Glucose 87 mg/dL (65-105) 07/19/17 22:35 Lactate 3.3 mmol/L (0.7-2.1) H 07/19/17 22:35 Liter Flow 3 07/21/17 12:41 Vent Mode Nc 07/21/17 12:41 FiO2 32.0 % 07/21/17 12:41 Crit Value Called To Dr ruddy gordon 07/19/17 22:35 Crit Value Called By Rt 07/19/17 22:35 Crit Value Read Back Y 07/19/17 22:35 Blood Gas Notified Time 1995 07/19/17 22:35 Sodium 143 mmol/l (132-148) 07/21/17 06:30 Potassium 4.5 MMOL/L (3.6-5.0) 07/21/17 06:30 Chloride 103 mmol/L (98-107) 07/21/17 06:30 Carbon Dioxide 28 mmol/L (22-30) 07/21/17 06:30 Anion Gap 17 (10-20) 07/21/17 06:30 BUN 36 mg/dl (7-17) H 07/21/17 06:30 Creatinine 1.0 mg/dl (0.7-1.2) 07/21/17 06:30 Est GFR ( Amer) > 60 07/21/17 06:30 Est GFR (Non-Af Amer) 56 07/21/17 06:30 Random Glucose 127 mg/dL (65-105) H 07/21/17 06:30 Lactic Acid 1.5 MMOL/L (0.7-2.1) 07/20/17 05:00 Calcium 8.4 mg/dL (8.4-10.2) 07/21/17 06:30 Total Bilirubin 0.6 mg/dl (0.2-1.3) 07/21/17 06:30 AST 68 U/L (14-36) H D 07/21/17 06:30 ALT 46 U/L (9-52) 07/21/17 06:30 Alkaline Phosphatase 100 U/L (38-126) 07/21/17 06:30 Troponin I 0.1200 ng/mL (0.00-0.120) 07/20/17 00:38 NT-Pro-B Natriuret Pep 5190 pg/ml (0-900) H 07/20/17 00:38 Total Protein 6.9 G/DL (6.3-8.2) 07/21/17 06:30 Albumin 3.6 g/dL (3.5-5.0) 07/21/17 06:30 Globulin 3.4 gm/dL (2.2-3.9) 07/21/17 06:30 Albumin/Globulin Ratio 1.0 (1.0-2.1) 07/21/17 06:30 Venous Blood Potassium 3.9 mmol/L (3.6-5.2) 07/19/17 22:35 Urine Color Yellow (YELLOW) 07/21/17 08:35 Urine Clarity Clear (Clear) 07/21/17 08:35 Urine pH 5.0 (5.0-8.0) 07/21/17 08:35 Ur Specific [place] 1.021 (1.003-1.030) 07/21/17 08:35 Urine Protein Negative mg/dL (NEGATIVE) 07/21/17 08:35 Urine Glucose (UA) Neg mg/dL (Normal) 07/21/17 08:35 Urine Ketones Trace mg/dL (NEGATIVE) 07/21/17 08:35 Urine Blood Negative (NEGATIVE) 07/21/17 08:35 Urine Nitrate Negative (NEGATIVE) 07/21/17 08:35 Urine Bilirubin Negative (NEGATIVE) 07/21/17 08:35 Urine Urobilinogen 0.2-1.0 mg/dL (0.2-1.0) 07/21/17 08:35 Ur Leukocyte Esterase Neg Marcelo/uL (Negative) 07/21/17 08:35 Urine RBC (Auto) 1 /hpf (0-3) 07/21/17 08:35 Urine Microscopic WBC < 1 /hpf (0-5) 07/21/17 08:35 Ur Squamous Epith Cells 3 /hpf (0-5) 07/21/17 08:35 Influenza Typ A,B (EIA) Negative for flu a/b (NEGATIVE) 07/19/17 22:40 - Hospital Course Hospital Course: This is a 61 year old female with past medical history of asthma/COPD, HTN, HLD , RA/SLE, thrombocytopenia 2/2 asplenia, PAH, CAD/[place], and 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 She was diagnosed with COPD exacerbation. In addition there was concern at the time of admission for HCAP and then patient was started on Vancomycin and Cefepime. During her hospital course, she was seen by Dr. Thomas from pulmonary who ordered CT scan of the chest to evaluate for pneumonia. The CT showed no definite pnuemonia, although it did show small airway/reactive disease consistent with COPD exacerbation. Antibiotics were stopped on 07/21/2017. She is received duoneb tx, IV Solu-Medrol. She did not show leukocytosis on blood work and remained afebrile. Continuing to slowly improve. 1) Acute on chronic respiratory failure with hypoxia, due to COPD exacerbation , unlikely to have pneumonia with no fever/leukocytosis and no definite pneumonia on CT chest - continues to have cough and congestion - Vanc/Cefepime was given initally, now discontinued as there is no evidence for acute infectious process -RTC Duonebs - Received IV solumedrol , will change to PO - Dr. Thomas : Pulmonary consultation 2) HTN -- continue home medications 3) CHF -- chronic, diastolic dysfunction, EF 60% no evidence of acute exacerbation, controlled - continue Furosemide 40 mg po daily (home dose) - cont Toprol XL 4) RA and SLE -Continue folic acid -Cont plaquenil and Methotrexate 5) DVT PPx -- used SCDs only given intermittent low Plt due to asplenia and prior Hx of GIB Discharge Exam - Head Exam Head Exam: NORMAL INSPECTION, NORMOCEPHALIC - Eye Exam Pupil Exam: NORMAL ACCOMODATION - ENT Exam ENT Exam: Mucous Membranes Dry, Normal External Ear Exam - Neck Exam Neck exam: Full Rom - Respiratory Exam Respiratory Exam: Rhonchi, Wheezes, NORMAL BREATHING PATTERN. absent: Respiratory Distress - Cardiovascular Exam Cardiovascular Exam: REGULAR RHYTHM, +S1, +S2 - GI/Abdominal Exam GI & Abdominal Exam: Normal Bowel Sounds, Soft. absent: Tenderness - Extremities Exam Extremities exam: normal capillary refill, pedal pulses present - Back Exam Back exam: absent: CVA tenderness (L), CVA tenderness (R), vertebral tenderness - Neurological Exam Neurological exam: Alert, CN II-XII Intact, Oriented x3, Reflexes Normal - Psychiatric Exam Psychiatric exam: Normal Affect, Normal Mood - Skin Skin Exam: Dry, Normal Color, Warm Discharge Plan - Discharge Medications Prescriptions: Alprazolam [Alprazolam ER] 0.5 mg PO HS #30 tab.er.24h Atorvastatin [Lipitor] 10 mg PO DAILY #30 tab Cefdinir [Omnicef] 300 mg PO BID #10 cap Clopidogrel [Plavix] 75 mg PO DAILY #30 tab Docusate [Colace] 100 mg PO DAILY #100 cap Escitalopram [Lexapro] 10 mg PO DAILY #30 tab Escitalopram Oxalate 10 mg PO DAILY #30 tablet Famotidine [Pepcid] 20 mg PO Q12 #60 tab Folic Acid 1 mg PO DAILY #30 tab Furosemide [Lasix] 40 mg PO DAILY #30 tab guaiFENesin/Dextromethorphan [Robitussin DM] 10 ml PO Q4 PRN #1 bottle PRN Reason: Cough Hydroxychloroquine Sulfate [Plaquenil] 200 mg PO Q12H #60 tablet Loratadine [Claritin] 10 mg PO DAILY #30 tab Meclizine [Antivert] 12.5 mg PO Q12H #60 tab Meloxicam [Mobic] 7.5 mg PO DAILY #30 tab Methotrexate Sodium [Trexall] 1 tab PO QWK #4 tablet Methylprednisolone [Medrol Dose Pack (21 tabs)] 4 mg PO ASDIR #21 mg Metoprolol Succinate [Toprol XL] 25 mg PO DAILY #30 tab Mirtazapine [Remeron] 30 mg PO HS #30 tab Nystatin [Nystatin Oral Susp] 5 ml PO QID #1 bottle Polyethylene Glycol/Polyvinyl [Artificial Tears] 2 drop OU Q6 PRN #1 bottle PRN Reason: Dry Eyes Promethazine/Codeine [Phenergan/Codeine Oral Syrup] 10 ml PO Q8 #300 ml - Follow Up Plan Condition: GOOD Disposition: HOME/ ROUTINE Instructions: Exacerbation of COPD (DC) Additional Instructions: ff up with Dr Albright in 1 wk ff up with DR Thomas in 1 wk Home RN, Home PT Referrals: Sai Thomas MD [Staff Provider] - Deniz Albright MD [Family Provider] -
[2017-07-23 12:21] VITALS: BP 122/72; PULSE 72; TEMP 97.1; O2SAT 94
--- NOTE | 2017-07-23 16:29 | CP.PCM.PN ---
Subjective - Date & Time of Evaluation Date of Evaluation: 07/23/17 Time of Evaluation: 11:00 - Subjective Subjective: F/U respiratory Failure Pt breathing better, cough improved, no SOB with O2 at rest, [place]. Objective - Vital Signs/Intake and Output Vital Signs (last 24 hours): Temp Pulse Resp BP Pulse Ox 97.1 F L 72 20 122/72 94 L 07/23/17 12:21 07/23/17 12:21 07/23/17 12:21 07/23/17 12:21 07/23/17 12:21 - Labs Labs: 07/21/17 06:30 07/21/17 06:30 PT 12.0 Seconds (9.8-13.1) 07/19/17 22:30 INR 1.1 (0.9-1.2) 07/19/17 22:30 APTT 22.1 Seconds (25.6-37.1) L 07/19/17 22:30 - Constitutional Appears: No Acute Distress, Chronically Ill - Head Exam Head Exam: NORMAL INSPECTION - Eye Exam Eye Exam: PERRL - ENT Exam ENT Exam: Normal Exam - Neck Exam Neck Exam: Normal Inspection - Respiratory Exam Respiratory Exam: Decreased Breath Sounds (at bases) - Cardiovascular Exam Cardiovascular Exam: REGULAR RHYTHM - GI/Abdominal Exam GI & Abdominal Exam: Soft, Normal Bowel Sounds - Extremities Exam Extremities Exam: Normal Inspection - Neurological Exam Neurological Exam: Alert, Awake, CN II-XII Intact Additional comments: Mild left sided weakness. - Psychiatric Exam Psychiatric exam: Anxious - Skin Skin Exam: Warm Assessment and Plan (1) Acute respiratory failure with hypoxia Status: Acute (2) Chronic respiratory failure with hypoxia Status: Chronic (3) COPD exacerbation Status: Acute (4) OLIVIA (obstructive sleep apnea) Status: Chronic (5) CHF (congestive heart failure) Status: Chronic (6) SLE (systemic lupus erythematosus) Status: Chronic (7) History of CVA (cerebrovascular accident) without residual deficits Status: Chronic - Assessment and Plan (Free Text) Plan: Pulmonary clear to be discharged, continue Duoneb, O2, caleb steroids, continue rest of Tx.
== END 2017-07-23 15:11 | disposition home health service (06) | DRG 541 ==
LOC: H.ER 21:42 → H.ERHOLD 07-20 00:20 → INTOOBSV 07-20 00:20 → OBSVTOIN 07-20 00:28 → H.TEL 07-20 03:04
PROVIDERS: ADMIT Internal Medicine; ATTEND Internal Medicine
PROC: 5A09457 Assistance with Respiratory Ventilation, 24-96 Consecutive Hours, Continuous Positive Airway Pressure (ICD-10-PCS; principal; 2017-07-20)
PROC: 3E0F73Z Introduction of Anti-inflammatory into Respiratory Tract, Via Natural or Artificial Opening (ICD-10-PCS; 2017-07-20)
DX: J44.1 Chronic obstructive pulmonary disease with (acute) exacerbation (principal); J96.21 Acute and chronic respiratory failure with hypoxia; I50.32 Chronic diastolic (congestive) heart failure; J18.9 Pneumonia, unspecified organism; I11.0 Hypertensive heart disease with heart failure; M32.9 Systemic lupus erythematosus, unspecified; J44.0 Chronic obstructive pulmonary disease with (acute) lower respiratory infection; Y95 Nosocomial condition; I25.10 Atherosclerotic heart disease of native coronary artery without angina pectoris; G47.33 Obstructive sleep apnea (adult) (pediatric); E78.5 Hyperlipidemia, unspecified; M81.0 Age-related osteoporosis without current pathological fracture; E78.00 Pure hypercholesterolemia, unspecified; F41.9 Anxiety disorder, unspecified; Q89.01 Asplenia (congenital); M06.9 Rheumatoid arthritis, unspecified; I69.328 Other speech and language deficits following cerebral infarction; D64.9 Anemia, unspecified; K29.70 Gastritis, unspecified, without bleeding; Z66 Do not resuscitate; Z95.5 Presence of coronary angioplasty implant and graft; Z79.02 Long term (current) use of antithrombotics/antiplatelets

== ENCOUNTER 2017-07-24 14:04 | Inpatient (IN) | payer MEDICAID ==
[2017-07-24 14:04] VITALS: BMI 36.6
[2017-07-24] MEDS ORDERED: Albuterol-Ipratrop 3 mg / 0.5 (3 ml) UD INH STA (14:16)
--- NOTE | 2017-07-24 14:41 | RAD ---
HISTORY: SOB COMPARISON: Chest radiograph dated 07/21/2017 FINDINGS: LUNGS: Prominence of the pulmonary vasculature may be secondary to AP technique and/or pulmonary vascular congestion. PLEURA: No significant pleural effusion identified, no pneumothorax apparent. CARDIOVASCULAR: Cardiomediastinal silhouette stably enlarged. OSSEOUS STRUCTURES: Unchanged. VISUALIZED UPPER ABDOMEN: Normal. OTHER FINDINGS: None. IMPRESSION: Prominence of pulmonary vasculature may be secondary to AP technique and/or pulmonary vascular congestion. No focal consolidation or pleural effusion.
--- NOTE | 2017-07-24 14:48 | ED PDOC ---
HPI: SOB/CHF/COPD Time Seen by Provider: 07/24/17 14:09 Chief Complaint (Nursing): Shortness Of Breath Chief Complaint (Provider): Shortness Of Breath History Per: EMS History/Exam Limitations: clinical condition (SOB) Onset/Duration Of Symptoms: Days (x1) Current Symptoms Are (Timing): Still Present Additional Complaint(s): 61 year old female with medical history of COPD, presents to the emergency department via EMS for an evaluation of shortness of breath associated with nausea and post-tussive vomiting ongoing for 1 day. Patient was recently discharged yesterday for possible pneumonia and did not feel relieved by Nebulizer at home. 2 additional Nebulizers were given by EMS en route. PMD: Deniz Albright MD Past Medical History Reviewed: Historical Data, Nursing Documentation, Vital Signs Vital Signs: Last Vital Signs Temp 97.3 F L 07/24/17 14:09 Pulse 138 H 07/24/17 14:09 Resp 22 07/24/17 15:25 BP 150/105 H 07/24/17 14:09 Pulse Ox 98 07/24/17 15:49 - Medical History PMH: Anemia, Anxiety, Arthritis, Asthma, Back Problems (chronic back pain), CAD , Cardia Arrhythmia, CHF, COPD, CVA (x3 with left weakness), Depression, Diverticulitis, Gastritis, HTN, Hypercholesterolemia, Osteoporosis, Peripheral Edema, Rheumatoid Arthritis, Sleep Apnea, TIA Denies: HIV, Chronic Kidney Disease, Seizures (denies) - Surgical History Surgical History: [place] [facility] [place] Denies: Cholecystectomy - Family History Family History: States: Unknown Family Hx - Social History Current smoker - smoking cessation education provided: No Alcohol: None Drugs: Denies - Immunization History Hx Influenza Vaccination: Yes - Home Medications Home Medications: Ambulatory Orders Medication Instructions Recorded Acetaminophen [Tylenol] 650 mg PO Q4H PRN 07/20/17 Albuterol/Ipratropium [Duoneb 3 3 ml NEB Q6H PRN 07/20/17 mg/0.5 mg (3 ml) UD] Aluminum Hydroxide/Magnesium H 30 ml PO PRN PRN 07/20/17 [Maalox 30 ml] Magnesium Hydroxide [Milk Of 30 ml PO PRN PRN 07/20/17 Magnesia] Alprazolam [Alprazolam ER] 0.5 mg PO HS #30 tab.er.24h 07/21/17 Escitalopram Oxalate 10 mg PO DAILY #30 tablet 07/21/17 Folic Acid 1 mg PO DAILY #30 tab 07/21/17 Hydroxychloroquine Sulfate 200 mg PO Q12H #60 tablet 07/21/17 [Plaquenil] Loratadine [Claritin] 10 mg PO DAILY #30 tab 07/21/17 Meclizine [Antivert] 12.5 mg PO Q12H #60 tab 07/21/17 Meloxicam [Mobic] 7.5 mg PO DAILY #30 tab 07/21/17 Methotrexate Sodium [Trexall] 1 tab PO QWK #4 tablet 07/21/17 guaiFENesin/Dextromethorphan 10 ml PO Q4 PRN #1 bottle 07/21/17 [Robitussin DM] Albuterol/Ipratropium [Duoneb 3 3 ml INH RQ4 PRN neb 07/23/17 mg/0.5 mg (3 ml) UD] Atorvastatin [Lipitor] 10 mg PO DAILY #30 tab 07/23/17 Cefdinir [Omnicef] 300 mg PO BID #10 cap 07/23/17 Clopidogrel [Plavix] 75 mg PO DAILY #30 tab 07/23/17 Docusate [Colace] 100 mg PO DAILY #100 cap 07/23/17 Escitalopram [Lexapro] 10 mg PO DAILY #30 tab 07/23/17 Famotidine [Pepcid] 20 mg PO Q12 #60 tab 07/23/17 Furosemide [Lasix] 40 mg PO DAILY #30 tab 07/23/17 Methylprednisolone [Medrol Dose 4 mg PO ASDIR #21 mg 07/23/17 Pack (21 tabs)] Metoprolol Succinate [Toprol XL] 25 mg PO DAILY #30 tab 07/23/17 Mirtazapine [Remeron] 30 mg PO HS #30 tab 07/23/17 Nystatin [Nystatin Oral Susp] 5 ml PO QID #1 bottle 07/23/17 Polyethylene Glycol/Polyvinyl 2 drop OU Q6 PRN #1 bottle 07/23/17 [Artificial Tears] Promethazine/Codeine 10 ml PO Q8 #300 ml 07/23/17 [Phenergan/Codeine Oral Syrup] - Allergies Allergies/Adverse Reactions: Allergies Allergy/AdvReac Type Severity Reaction Status Date / Time No Known Allergies Allergy Verified 07/19/17 21:44 Review of Systems ROS Statement: Except As Marked, All Systems Reviewed And Found Negative Constitutional: Negative for: Fever, Chills Cardiovascular: Negative for: Chest Pain Respiratory: Positive for: Shortness of Breath Gastrointestinal: Positive for: Nausea, Vomiting (post-tussive) Physical Exam - Reviewed Nursing Documentation Reviewed: Yes Vital Signs Reviewed: Yes - Physical Exam Appears: Positive for: In Acute Distress Head Exam: Positive for: ATRAUMATIC, NORMAL INSPECTION, NORMOCEPHALIC Skin: Positive for: Normal Color Eye Exam: Positive for: Normal appearance Cardiovascular/Chest: Positive for: Regular Rate, Rhythm, Chest Non Tender Respiratory: Positive for: Decreased Breath Sounds, Wheezing (bilateral), Respiratory Distress (moderate) Extremity: Positive for: Normal ROM (upper/lower). Negative for: Pedal Edema ( bilateral) Neurologic/Psych: Positive for: Alert, Oriented. Negative for: Motor/Sensory Deficits, Other (speak full sentences) - Laboratory Results Result Diagrams: 07/24/17 14:50 07/24/17 14:50 - ECG Interpretation Of ECG: Sinus alec @ 50, TWI V3-V4, V6. O2 Sat by Pulse Oximetry: 98 (RA) Pulse Ox Interpretation: Normal Medical Decision Making Medical Decision Making: Initial Impression: Asthma/COPD exacerbation Initial Plan: * EKG * CMP * Troponin I * CBC * PTT * PT * CXR * Duneb 3ml INH * Solu-medrol 125mg IVP * Blood culture * UA Time: 1439 --CXR FINDINGS: LUNGS: Prominence of the pulmonary vasculature may be secondary to AP technique and/or pulmonary vascular congestion. PLEURA: No significant pleural effusion identified, no pneumothorax apparent. CARDIOVASCULAR: Cardiomediastinal silhouette stably enlarged. OSSEOUS STRUCTURES: Unchanged. VISUALIZED UPPER ABDOMEN: Normal. OTHER FINDINGS: None. IMPRESSION: Prominence of pulmonary vasculature may be secondary to AP technique and/or pulmonary vascular congestion. No focal consolidation or pleural effusion. Scribe Attestation: Documented by Jeny Costa, acting as a scribe for Belem Canales MD. Provider Scribe Attestation: All medical record entries made by the Scribe were at my direction and personally dictated by me. I have reviewed the chart and agree that the record accurately reflects my personal performance of the history, physical exam, medical decision making, and the department course for this patient. I have also personally directed, reviewed, and agree with the discharge instructions and disposition. Disposition - Clinical Impression Clinical Impression: COPD exacerbation, NSTEMI (non-ST elevated myocardial infarction) - Patient ED Disposition Is Patient to be Admitted: Yes - Disposition Disposition Time: 15:49 Condition: GUARDED Forms: [employer] (Monegasque) - Pt Status Changed To: Hospital Disposition Of: Inpatient - Admit Certification Admit to Inpatient:: After my assessment, the patient will require hospitalization for at least two midnights. This is because of the severity of symptoms shown, intensity of services needed, and/or the medical risk in this patient being treated as an outpatient. - POA Present On Arrival: None
[2017-07-24 14:57] LABS: BASO # 0.1 K/uL (0.0-0.2); BASO % 0.8 % (0.0-2.0); EOS % 0.2 % (0.0-4.0); HEMOGLOBIN 9.7 g/dL (12.0-16.0); LYMPH # 0.4 K/uL (1.0-4.3); LYMPH % 4.8 % (20.0-40.0); MEAN CELL VOLUME 96.3 fl (81.0-99.0); MEAN CORPUSCULAR HGB CONC 30.1 g/dL (33.0-37.0); MEAN PLATELET VOLUME 9.8 fl (7.2-11.7); MONO # 0.5 K/uL (0.0-0.8); NEUT # 7.5 K/uL (1.8-7.0); NEUT % 88.2 % (50.0-75.0); NRBC % 2.6 % (0.0-0.0); PLATELET COUNT 130 K/uL (130-400); RBC 3.36 Mil/uL (3.80-5.20); WHITE BLOOD COUNT 8.5 K/uL (4.8-10.8)
[2017-07-24] MEDS ORDERED: Albuterol-Ipratrop 3 mg / 0.5 (3 ml) UD ONE ×2 (15:17→20:30)
[2017-07-24 15:28] LABS: ALB/GLOB RATIO 1.2 (1.0-2.1); ALBUMIN 3.8 g/dL (3.5-5.0); ALT/SGPT 80 U/L (9-52); AST/SGOT 65 U/L (14-36); BLOOD UREA NITROGEN 44 mg/dl (7-17); CALCIUM 8.8 mg/dL (8.4-10.2); GFR AFRICAN-AMERICAN > 60; GFR NON-AFRICAN AMERICAN 50
[2017-07-24] MEDS ORDERED: Enoxaparin 80 mg Syringe SC STA (15:42)
[2017-07-24 16:03] LABS: BANDS 1 % (0-2); LYMPHOCYTE 7 % (20-50); MONOCYTE 5 % (0-10); NEUTROPHIL 87 % (42-75); NUCLEATED RED BLOOD CELL 4 % (0-0); PLATELET ESTIMATE NORMAL (NORMAL); TOTAL CELLS COUNTED 100
[2017-07-24 16:04] LABS: ANISOCYTOSIS MODERATE; HYPOCHROMIC MODERATE; OVALOCYTES SLIGHT; POIKILOCYTOSIS SLIGHT; SCHISTOCYTES SLIGHT
[2017-07-24 16:05] LABS: LARGE PLATELETS PRESENT; TOXIC GRANULATION PRESENT
[2017-07-24 16:28] LABS: INR 1.1 (0.9-1.2); PARTIAL THROMBOPLASTIN TIME 22.4 Seconds (25.6-37.1); PROTHROMBIN TIME 12.2 Seconds (9.8-13.1)
[2017-07-24] MEDS ORDERED: Enoxaparin 40 mg Syringe SC SCH (16:30)
[2017-07-24] MEDS ORDERED: Albuterol 0.083% Inhal Sol (2.5 mg/3 mL) UD INH PRN (16:39)
[2017-07-24 16:54] LABS: SQUAMOUS EPITHIAL 1 /hpf (0-5); URINE BILIRUBIN NEGATIVE (NEGATIVE); URINE BLOOD NEGATIVE (NEGATIVE); URINE CLARITY CLEAR (Clear); URINE COLOR YELLOW (YELLOW); URINE GLUCOSE (UA) NEG (Normal); URINE LEUKOCYTE ESTERASE NEG Leu/uL (Negative); URINE PROTEIN 100 mg/dL (NEGATIVE); URINE UROBILINOGEN 0.2-1.0 mg/dL (0.2-1.0)
--- NOTE | 2017-07-24 17:34 | CP.PCM.HP ---
History of Present Illness - History of Present Illness History of Present Illness: 61 yo female, well known to us, with history of SLE, RA, Asthma/COPD, CAD, PAH and previous CVA just discharged yesterday brought back today by sister because of SOB, coughing and 3 episodes of vomiting of previously taken food. Unable to sleep last night because of coughing and SOB. Denied chest pain or abdominal pain. Present on Admission - Present on Admission Any Indicators Present on Admission: No History of DVT/PE: No History of Uncontrolled Diabetes: No Urinary Catheter: No Decubitus Ulcer Present: No Review of Systems - Review of Systems All systems: reviewed and no additional remarkable complaints except (aside from those mentioned above, 12 point system review were negative by me) Past Patient History - Infectious Disease Hx of Infectious Diseases: None - Tetanus Immunizations Tetanus Immunization: Unknown - Past Medical History & Family History Past Medical History?: Yes - Past Social History Alcohol: None Drugs: Denies Home Situation {Lives}: Alone - CARDIAC Hx Cardia Arrhythmia: Yes Hx Congestive Heart Failure: Yes Hx Hypercholesterolemia: Yes Hx Hypertension: Yes Hx Peripheral Edema: Yes - PULMONARY Hx Asthma: Yes Hx Chronic Obstructive Pulmonary Disease (COPD): Yes Hx Sleep Apnea: Yes - NEUROLOGICAL Hx Seizures: No (denies) Hx Transient Ischemic Attacks (TIA): Yes - HEENT Hx HEENT Problems: No - RENAL Hx Chronic Kidney Disease: No - ENDOCRINE/METABOLIC Hx Endocrine Disorders: No - HEMATOLOGICAL/ONCOLOGICAL Hx Anemia: Yes Hx Human Immunodeficiency Virus (HIV): No - INTEGUMENTARY Hx Dermatological Problems: No - MUSCULOSKELETAL/RHEUMATOLOGICAL Hx Arthritis: Yes Hx Osteoporosis: Yes Hx Rheumatoid Arthritis: Yes - GASTROINTESTINAL Hx Diverticulitis: Yes Hx Gastritis: Yes - GENITOURINARY/GYNECOLOGICAL Hx Genitourinary Disorders: Yes - PSYCHIATRIC Hx Anxiety: Yes Hx Depression: Yes - SURGICAL HISTORY Hx Appendectomy: Yes Hx Cholecystectomy: No Hx Coronary Stent: Yes (Rex perez [facility] [place]) - ANESTHESIA Hx Anesthesia: Yes Hx Anesthesia Reactions: No Hx Malignant Hyperthermia: No Meds Allergies/Adverse Reactions: Allergies Allergy/AdvReac Type Severity Reaction Status Date / Time No Known Allergies Allergy Verified 07/19/17 21:44 Physical Exam - Constitutional Appears: No Acute Distress, Chronically Ill - Head Exam Head Exam: ATRAUMATIC - Eye Exam Eye Exam: absent: Scleral icterus - ENT Exam ENT Exam: Mucous Membranes Moist - Neck Exam Neck exam: Negative for: Meningismus - Respiratory Exam Respiratory Exam: Rales, Rhonchi, Wheezes. absent: Respiratory Distress - Cardiovascular Exam Cardiovascular Exam: REGULAR RHYTHM, +S1, +S2 - GI/Abdominal Exam GI & Abdominal Exam: Soft. absent: Tenderness - Rectal Exam Rectal Exam: Deferred - Extremities Exam Extremities exam: Negative for: pedal edema - Neurological Exam Neurological exam: Alert, Oriented x3 - Psychiatric Exam Psychiatric exam: Normal Affect - Skin Skin Exam: Dry, Intact Results - Vital Signs Recent Vital Signs: Last Vital Signs Temp 97.3 F L 07/24/17 14:09 Pulse 138 H 07/24/17 14:09 Resp 22 07/24/17 15:25 BP 150/105 H 07/24/17 14:09 Pulse Ox 98 07/24/17 16:08 - Labs Result Diagrams: 07/24/17 14:50 07/24/17 14:50 Labs: Laboratory Results - last 24 hr 07/24/17 07/24/17 07/24/17 14:50 14:50 16:15 WBC 8.5 RBC 3.36 L Hgb 9.7 L Hct 32.3 L MCV 96.3 MCH 29.0 MCHC 30.1 L RDW 24.0 H Plt Count 130 MPV 9.8 Neut % (Auto) 88.2 H Lymph % (Auto) 4.8 L [place] % (Auto) 6.0 Eos % (Auto) 0.2 Baso % (Auto) 0.8 Neut # (Auto) 7.5 H Lymph # (Auto) 0.4 L [place] # (Auto) 0.5 Eos # (Auto) 0.0 Baso # (Auto) 0.1 Neutrophils % (Manual) 87 H Band Neutrophils % 1 Lymphocytes % (Manual) 7 L Monocytes % (Manual) 5 Nucleated RBC % 4 H Toxic Granulation Present Platelet Estimate Normal Large Platelets Present Hypochromasia (manual) Moderate Poikilocytosis (manual Slight Anisocytosis (manual) Moderate Ovalocytes Slight Schistocytes Slight PT 12.2 INR 1.1 APTT 22.4 L Sodium 148 Potassium 4.0 Chloride 102 Carbon Dioxide 33 H Anion Gap 17 BUN 44 H Creatinine 1.1 Est GFR ( Amer) > 60 Est GFR (Non-Af Amer) 50 Random Glucose 112 H Calcium 8.8 Total Bilirubin 0.9 AST 65 H ALT 80 H D Alkaline Phosphatase 134 H D Troponin I 0.1460 H* Total Protein 7.0 Albumin 3.8 Globulin 3.2 Albumin/Globulin Ratio 1.2 Urine Color Urine Clarity Urine pH Ur Specific [place] Urine Protein Urine Glucose (UA) Urine Ketones Urine Blood Urine Nitrate Urine Bilirubin Urine Urobilinogen Ur Leukocyte Esterase Urine RBC (Auto) Urine Microscopic WBC Ur Squamous Epith Cells 07/24/17 16:48 WBC RBC Hgb Hct MCV MCH MCHC RDW Plt Count MPV Neut % (Auto) Lymph % (Auto) [place] % (Auto) Eos % (Auto) Baso % (Auto) Neut # (Auto) Lymph # (Auto) [place] # (Auto) Eos # (Auto) Baso # (Auto) Neutrophils % (Manual) Band Neutrophils % Lymphocytes % (Manual) Monocytes % (Manual) Nucleated RBC % Toxic Granulation Platelet Estimate Large Platelets Hypochromasia (manual) Poikilocytosis (manual Anisocytosis (manual) Ovalocytes Schistocytes PT INR APTT Sodium Potassium Chloride Carbon Dioxide Anion Gap BUN Creatinine Est GFR ( Amer) Est GFR (Non-Af Amer) Random Glucose Calcium Total Bilirubin AST ALT Alkaline Phosphatase Troponin I Total Protein Albumin Globulin Albumin/Globulin Ratio Urine Color Yellow Urine Clarity Clear Urine pH 6.0 Ur Specific [place] 1.013 Urine Protein 100 Urine Glucose (UA) Neg Urine Ketones Negative Urine Blood Negative Urine Nitrate Negative Urine Bilirubin Negative Urine Urobilinogen 0.2-1.0 Ur Leukocyte Esterase Neg Urine RBC (Auto) < 1 Urine Microscopic WBC 1 Ur Squamous Epith Cells 1 Assessment & Plan - Assessment and Plan (Free Text) Assessment: 61 yo female, well known to us, with history of SLE, RA, Asthma/COPD, CAD, PAH and previous CVA just discharged yesterday brought back today by sister because of SOB, coughing and 3 episodes of vomiting of previously taken food. Unable to sleep last night because of coughing and SOB. Denied chest pain or abdominal pain. 1. Acute exacerbation of COPD Duoneb via nebulizer QID Albuterol via nebulizer q 4hrs prn for wheezing/SOB Solumedrol IVPB q 8hrs pulmonary consult with Dr Thomas 2. NSTEMI denied chest pain, vomited 3 times 1st set of Troponins elevated continue Plavix and Lovenox continue Metoprolol and statin ECHO serial Troponins cardiology consult with Dr Katdare 3. CHF, chronic, diastolic dysfunction, EF 60% continue Furosemide and Metoprolol 4. RA and SLE Cont Plaquenil and Methotrexate Continue Folic Acid 5. DVT Prophylaxis Lovenox 40mg SC daily
[2017-07-24] MEDS ORDERED: MethylPREDNISolone 40 mg Vial IVP ONE (17:45)
[2017-07-24] MEDS ORDERED: Pantoprazole 40 mg EC Tab PO ONE (18:36)
[2017-07-24] MEDS: Pantoprazole 40 mg EC Tab PO SCH (18:47)
[2017-07-24] MEDS: Albuterol-Ipratrop 3 mg / 0.5 (3 ml) UD INH SCH (20:34)
[2017-07-24] MEDS: MethylPREDNISolone 40 mg Vial IVP SCH (20:36)
[2017-07-24] MEDS ORDERED: Tdap Vaccine 0.5 ml Vial (10-64 yrs) IM ONE (23:21)
[2017-07-25] MEDS ORDERED: methylPREDNISolone 40 MG in Sodium Chloride 0.9% 50 ML IVPB SCH (01:00)
[2017-07-25] MEDS: MethylPREDNISolone 40 mg Vial IVP SCH ×3 (01:53→16:52)
[2017-07-25 05:39] LABS: BASO % 0.7 % (0.0-2.0); EOS % 0.5 % (0.0-4.0); LYMPH # 0.4 K/uL (1.0-4.3); LYMPH % 6.6 % (20.0-40.0); MEAN CORPUSCULAR HEMOGLOBIN 28.9 pg (27.0-31.0); MEAN CORPUSCULAR HGB CONC 30.1 g/dL (33.0-37.0); MONO # 0.4 K/uL (0.0-0.8); MONO % 6.6 % (0.0-10.0); NEUT # 5.3 K/uL (1.8-7.0); NEUT % 85.6 % (50.0-75.0); RBC 3.45 Mil/uL (3.80-5.20); RED CELL DISTRIBUTION WIDTH 23.7 % (11.5-14.5); WHITE BLOOD COUNT 6.2 K/uL (4.8-10.8)
[2017-07-25 05:55] LABS: CALCIUM 8.9 mg/dL (8.4-10.2)
[2017-07-25] MEDS: Albuterol-Ipratrop 3 mg / 0.5 (3 ml) UD INH SCH ×4 (07:54→19:32)
[2017-07-25] MEDS: Pantoprazole 40 mg EC Tab PO SCH (09:40)
[2017-07-25] MEDS: Metoprolol Succinate 25 mg XL Tab PO SCH (09:40)
[2017-07-25] MEDS: Enoxaparin 80 mg Syringe SC SCH ×2 (09:59→21:06)
[2017-07-25] MEDS ORDERED: Nitroglycerin 2% Ointment Foilpak UD TOP STA (10:35)
--- NOTE | 2017-07-25 14:09 | CP.PCM.PN ---
Subjective - Date & Time of Evaluation Date of Evaluation: 07/25/17 Time of Evaluation: 11:30 - Subjective Subjective: Patient seen and examined. Complained today of chest pain but denied nausea/ vomiting, wheezing or SOB. Objective - Vital Signs/Intake and Output Vital Signs (last 24 hours): Temp Pulse Resp BP Pulse Ox 97.4 F L 59 L 18 163/87 H 100 07/25/17 07:55 07/25/17 11:03 07/25/17 07:55 07/25/17 11:03 07/25/17 07:55 - Medications Medications: Current Medications Acetaminophen (Tylenol 325mg Tab) 650 mg PO Q4H PRN PRN Reason: Pain, Mild (1-3) Last Admin: 07/25/17 05:06 Dose: 650 mg Albuterol Sulfate (Albuterol 0.083% Inhal Lotus (2.5 Mg/3 Ml) Ud) 2.5 mg INH RQ6 PRN PRN Reason: Shortness of Breath Last Admin: 07/25/17 05:25 Dose: 2.5 mg Albuterol/Ipratropium (Duoneb 3 Mg/0.5 Mg (3 Ml) Ud) 3 ml INH RQID [facility] Last Admin: 07/25/17 11:14 Dose: 3 ml Aspirin (Aspirin) 325 mg PO DAILY [facility] Last Admin: 07/25/17 09:43 Dose: 325 mg Atorvastatin Calcium (Lipitor) 10 mg PO DAILY [facility] Last Admin: 07/25/17 09:38 Dose: 10 mg Clopidogrel Bisulfate (Plavix) 75 mg PO DAILY [facility] Last Admin: 07/25/17 09:39 Dose: 75 mg Docusate Sodium (Colace) 100 mg PO BID PRN PRN Reason: Constipation Enoxaparin Sodium (Lovenox) 80 mg SC Q12 [facility] PRN Reason: Protocol Last Admin: 07/25/17 09:59 Dose: 80 mg Escitalopram Oxalate (Lexapro) 10 mg PO DAILY [facility] Last Admin: 07/25/17 09:38 Dose: 10 mg Folic Acid (Folic Acid) 1 mg PO DAILY [facility] Last Admin: 07/25/17 09:37 Dose: 1 mg Furosemide (Lasix) 40 mg PO DAILY [facility] Last Admin: 07/25/17 09:38 Dose: 40 mg Home Med (Methotrexate Sodium [Trexall]) 1 tab PO QWK [facility] Hydroxychloroquine Sulfate (Plaquenil) 200 mg PO Q12H [facility] PRN Reason: Protocol Last Admin: 07/25/17 05:06 Dose: 200 mg Methylprednisolone (Solu-Medrol) 40 mg IVP Q8H [facility] Last Admin: 07/25/17 09:42 Dose: 40 mg Metoprolol Succinate (Toprol Xl) 25 mg PO DAILY [facility] Last Admin: 07/25/17 09:40 Dose: Not Given Morphine Sulfate (Morphine) 4 mg IVP Q4 PRN PRN Reason: chest pain Last Admin: 07/25/17 11:03 Dose: 4 mg Nitroglycerin (Nitrostat Sl Tab) 0.4 mg SL Q5M PRN PRN Reason: chest pain Pantoprazole Sodium (Protonix Ec Tab) 40 mg PO DAILY [facility] Last Admin: 07/25/17 09:40 Dose: 40 mg - Labs Labs: 07/25/17 05:00 07/25/17 05:00 PT 12.2 Seconds (9.8-13.1) 07/24/17 16:15 INR 1.1 (0.9-1.2) 07/24/17 16:15 APTT 22.4 Seconds (25.6-37.1) L 07/24/17 16:15 - Constitutional Appears: No Acute Distress - Head Exam Head Exam: ATRAUMATIC - Eye Exam Eye Exam: absent: Scleral icterus - ENT Exam ENT Exam: Mucous Membranes Moist - Neck Exam Neck Exam: absent: Meningismus - Respiratory Exam Respiratory Exam: absent: Rales, Rhonchi, Wheezes, Respiratory Distress - Cardiovascular Exam Cardiovascular Exam: REGULAR RHYTHM, +S1, +S2 - GI/Abdominal Exam GI & Abdominal Exam: Soft. absent: Tenderness - Rectal Exam Rectal Exam: Deferred - Extremities Exam Extremities Exam: absent: Pedal Edema - Neurological Exam Neurological Exam: Alert, Oriented x3 - Psychiatric Exam Psychiatric exam: Normal Affect - Skin Skin Exam: Dry, Intact Assessment and Plan - Assessment and Plan (Free Text) Assessment: 61 yo female, well known to us, with history of SLE, RA, Asthma/COPD, CAD, PAH and previous CVA just discharged yesterday brought back today by sister because of SOB, coughing and 3 episodes of vomiting of previously taken food. Unable to sleep last night because of coughing and SOB. Denied chest pain or abdominal pain. 1. Acute exacerbation of COPD denied SOB or wheezing Duoneb via nebulizer QID Albuterol via nebulizer q 4hrs prn for wheezing/SOB Solumedrol 40mg IVPB q 12hrs pulmonary consult with Dr Thomas 2. NSTEMI chest pain not relieved with SL NTG but relieved with IV Morphine 2 sets of Troponins elevated continue ASA, Plavix and Lovenox continue Metoprolol and statin repeat Troponin level cardiology consult with Dr Goel 3. CHF, chronic, diastolic dysfunction, EF 60% continue Furosemide and Metoprolol 4. RA and SLE Cont Plaquenil and Methotrexate Continue Folic Acid 5. DVT Prophylaxis on Lovenox
--- NOTE | 2017-07-25 14:11 | CP.PCM.CON ---
History of Present Illness - History of Present Illness History of Present Illness: Pulmonary consult for a 61 y/o F, with multiple chronic medical conditions, including COPD,Asthma, OLIVIA, Hx CHF with coronary stent, Hx CVA x3, DVT, SLE, brought by EMS to [facility] [place] on 07/24/17 due to recurrent moderate to severe SOB that began day CRUSHER,also Nausea , vomiting x3 DOA Pt using nebulizer and at home , I was called buy nurse visiting home and advise her to direct Patient to ER [facility], also had Nebulizer Tx x 2 while in the field with no relief, Patient was treated with Solu Medrol Duo Neb with improvement , today early in the morning Patient had C/P like pressure relieved with NTG and Morphine. Pt with multiple frequents admission to hospital due to same complaint, last discharged was on 07/23/17, Tx for Acute respiratory failure with hypoxia/COPD Exacerbation, Worsening symptoms: SOB at rest/[place], unable to sleep due to cough. Aggravated factor: Movements/exercise. Pt denied: Chest Pain , Fever, chills, productive cough, bloody cough, CP, palpitations, dizziness, syncope, diarrhea, abdominal pain, urinary symptoms, sick contact. CXR shows: Prominence of pulmonary vasculature, may be 2nd to AP technique and / or pulmonary vascular congestion. No consolidation, no pleural effusion. Review of Systems - Constitutional Constitutional: Sleep Apnea, Weakness - EENT Eyes: Requires Corrective Lenses Ears: Other (negative) Nose/Mouth/Throat: Other (negative) - Cardiovascular Cardiovascular: Other (negative) - Respiratory Respiratory: Cough, Dyspnea, Dyspnea on Exertion, Wheezing - Gastrointestinal Gastrointestinal: Nausea, Vomiting - Genitourinary Genitourinary: Other - Musculoskeletal Musculoskeletal: Arthralgias - Integumentary Integumentary: Other (negative) - Neurological Neurological: Focal Weakness - Psychiatric Psychiatric: Depression - Endocrine Endocrine: Other (negative) - Hematologic/Lymphatic Hematologic: Other (negative) Past Patient History - Infectious Disease Hx of Infectious Diseases: None - Tetanus Immunizations Tetanus Immunization: Unknown - Past Medical History & Family History Past Medical History?: Yes Pertinent Family History: Unknown - Past Social History Smoking Status: Never Smoked Alcohol: None Drugs: Denies Home Situation {Lives}: With Family - CARDIAC Hx Cardiac Disorders: Yes Hx Cardia Arrhythmia: Yes Hx Congestive Heart Failure: Yes Hx Hypercholesterolemia: Yes Hx Hypertension: Yes Hx Peripheral Edema: Yes - PULMONARY Hx Respiratory Disorders: Yes Hx Asthma: Yes Hx Chronic Obstructive Pulmonary Disease (COPD): Yes Hx Sleep Apnea: Yes - NEUROLOGICAL Hx Neurological Disorder: Yes Hx Seizures: No (denies) Hx Transient Ischemic Attacks (TIA): Yes - HEENT Hx HEENT Problems: No - RENAL Hx Chronic Kidney Disease: No - ENDOCRINE/METABOLIC Hx Endocrine Disorders: No - HEMATOLOGICAL/ONCOLOGICAL Hx Blood Disorders: Yes Hx Anemia: Yes Hx Human Immunodeficiency Virus (HIV): No - INTEGUMENTARY Hx Dermatological Problems: No - MUSCULOSKELETAL/RHEUMATOLOGICAL Hx Musculoskeletal Disorders: Yes Hx Arthritis: Yes Hx Falls: No Hx Osteoporosis: Yes Hx Rheumatoid Arthritis: Yes - GASTROINTESTINAL Hx Gastrointestinal Disorders: Yes Hx Diverticulitis: Yes Hx Gastritis: Yes - GENITOURINARY/GYNECOLOGICAL Hx Genitourinary Disorders: Yes - PSYCHIATRIC Hx Psychophysiologic Disorder: Yes Hx Anxiety: Yes Hx Depression: Yes Hx Substance Use: No - SURGICAL HISTORY Hx Surgeries: Yes Hx Appendectomy: Yes Hx Cholecystectomy: No Hx [place]ary St[place]: Yes [place] [place] [facility] [place] - ANESTHESIA Hx Anesthesia: Yes Hx Anesthesia Reactions: No Hx Malignant Hyperthermia: No Meds Allergies/Adverse Reactions: Allergies Allergy/AdvReac Type Severity Reaction Status Date / Time No Known Allergies Allergy Verified 07/19/17 21:44 - Medications Medications: Current Medications Acetaminophen (Tylenol 325mg Tab) 650 mg PO Q4H PRN PRN Reason: Pain, Mild (1-3) Last Admin: 07/25/17 05:06 Dose: 650 mg Albuterol Sulfate (Albuterol 0.083% Inhal Lotus (2.5 Mg/3 Ml) Ud) 2.5 mg INH RQ6 PRN PRN Reason: Shortness of Breath Last Admin: 07/25/17 05:25 Dose: 2.5 mg Albuterol/Ipratropium (Duoneb 3 Mg/0.5 Mg (3 Ml) Ud) 3 ml INH RQID [facility] Last Admin: 07/25/17 11:14 Dose: 3 ml Aspirin (Aspirin) 325 mg PO DAILY [facility] Last Admin: 07/25/17 09:43 Dose: 325 mg Atorvastatin Calcium (Lipitor) 10 mg PO DAILY [facility] Last Admin: 07/25/17 09:38 Dose: 10 mg Clopidogrel Bisulfate (Plavix) 75 mg PO DAILY [facility] Last Admin: 07/25/17 09:39 Dose: 75 mg Docusate Sodium (Colace) 100 mg PO BID PRN PRN Reason: Constipation Enoxaparin Sodium (Lovenox) 80 mg SC Q12 [facility] PRN Reason: Protocol Last Admin: 07/25/17 09:59 Dose: 80 mg Escitalopram Oxalate (Lexapro) 10 mg PO DAILY [facility] Last Admin: 07/25/17 09:38 Dose: 10 mg Folic Acid (Folic Acid) 1 mg PO DAILY [facility] Last Admin: 07/25/17 09:37 Dose: 1 mg Furosemide (Lasix) 40 mg PO DAILY [facility] Last Admin: 07/25/17 09:38 Dose: 40 mg Home Med (Methotrexate Sodium [Trexall]) 1 tab PO QWK [facility] Hydroxychloroquine Sulfate (Plaquenil) 200 mg PO Q12H [facility] PRN Reason: Protocol Last Admin: 07/25/17 05:06 Dose: 200 mg Methylprednisolone (Solu-Medrol) 40 mg IVP Q8H [facility] Last Admin: 07/25/17 09:42 Dose: 40 mg Metoprolol Succinate (Toprol Xl) 25 mg PO DAILY [facility] Last Admin: 07/25/17 09:40 Dose: Not Given Morphine Sulfate (Morphine) 4 mg IVP Q4 PRN PRN Reason: chest pain Last Admin: 07/25/17 11:03 Dose: 4 mg Nitroglycerin (Nitrostat Sl Tab) 0.4 mg SL Q5M PRN PRN Reason: chest pain Pantoprazole Sodium (Protonix Ec Tab) 40 mg PO DAILY [facility] Last Admin: 07/25/17 09:40 Dose: 40 mg Physical Exam - Constitutional Appears: No Acute Distress, Chronically Ill - Head Exam Head Exam: NORMAL INSPECTION - Eye Exam Eye Exam: PERRL - ENT Exam ENT Exam: Normal Exam - Neck Exam Neck exam: Positive for: Normal Inspection - Respiratory Exam Respiratory Exam: Decreased Breath Sounds (at bases), Wheezes (b/l) - Cardiovascular Exam Cardiovascular Exam: REGULAR RHYTHM - GI/Abdominal Exam GI & Abdominal Exam: Normal Bowel Sounds, Soft - Extremities Exam Extremities exam: Positive for: normal inspection - Back Exam Back exam: NORMAL INSPECTION - Neurological Exam Neurological exam: Alert, Oriented x3 Additional comments: Mild left sided weakness. - Psychiatric Exam Psychiatric exam: Depressed - Skin Skin Exam: Warm Results - Vital Signs Recent Vital Signs: Last Vital Signs Temp 97.4 F L 07/25/17 07:55 Pulse 59 L 07/25/17 11:03 Resp 18 07/25/17 07:55 BP 163/87 H 07/25/17 11:03 Pulse Ox 100 07/25/17 07:55 marlene Alvarez - Labs Result Diagrams: 07/25/17 05:00 07/25/17 05:00 Labs: Laboratory Results - last 24 hr 07/24/17 07/24/17 07/24/17 14:50 14:50 16:15 WBC 8.5 RBC 3.36 L Hgb 9.7 L Hct 32.3 L MCV 96.3 MCH 29.0 MCHC 30.1 L RDW 24.0 H Plt Count 130 MPV 9.8 Neut % (Auto) 88.2 H Lymph % (Auto) 4.8 L [place] % (Auto) 6.0 Eos % (Auto) 0.2 Baso % (Auto) 0.8 Neut # (Auto) 7.5 H Lymph # (Auto) 0.4 L [place] # (Auto) 0.5 Eos # (Auto) 0.0 Baso # (Auto) 0.1 Neutrophils % (Manual) 87 H Band Neutrophils % 1 Lymphocytes % (Manual) 7 L Monocytes % (Manual) 5 Nucleated RBC % 4 H Toxic Granulation Present Platelet Estimate Normal Large Platelets Present Hypochromasia (manual) Moderate Poikilocytosis (manual Slight Anisocytosis (manual) Moderate Ovalocytes Slight Schistocytes Slight PT 12.2 INR 1.1 APTT 22.4 L Sodium 148 Potassium 4.0 Chloride 102 Carbon Dioxide 33 H Anion Gap 17 BUN 44 H Creatinine 1.1 Est GFR ( Amer) > 60 Est GFR (Non-Af Amer) 50 Random Glucose 112 H Calcium 8.8 Total Bilirubin 0.9 AST 65 H ALT 80 H D Alkaline Phosphatase 134 H D Troponin I 0.1460 H* Total Protein 7.0 Albumin 3.8 Globulin 3.2 Albumin/Globulin Ratio 1.2 Urine Color Urine Clarity Urine pH Ur Specific [place] Urine Protein Urine Glucose (UA) Urine Ketones Urine Blood Urine Nitrate Urine Bilirubin Urine Urobilinogen Ur Leukocyte Esterase Urine RBC (Auto) Urine Microscopic WBC Ur Squamous Epith Cells 07/24/17 07/24/17 07/25/17 16:48 22:50 05:00 WBC 6.2 RBC 3.45 L Hgb 10.0 L Hct 33.1 L MCV 96.0 MCH 28.9 MCHC 30.1 L RDW 23.7 H Plt Count 131 MPV 10.0 Neut % (Auto) 85.6 H Lymph % (Auto) 6.6 L [place] % (Auto) 6.6 Eos % (Auto) 0.5 Baso % (Auto) 0.7 Neut # (Auto) 5.3 Lymph # (Auto) 0.4 L [place] # (Auto) 0.4 Eos # (Auto) 0.0 Baso # (Auto) 0.0 Neutrophils % (Manual) Band Neutrophils % Lymphocytes % (Manual) Monocytes % (Manual) Nucleated RBC % Toxic Granulation Platelet Estimate Large Platelets Hypochromasia (manual) Poikilocytosis (manual Anisocytosis (manual) Ovalocytes Schistocytes PT INR APTT Sodium Potassium Chloride Carbon Dioxide Anion Gap BUN Creatinine Est GFR ( Amer) Est GFR (Non-Af Amer) Random Glucose Calcium Total Bilirubin AST ALT Alkaline Phosphatase Troponin I 0.1200 Total Protein Albumin Globulin Albumin/Globulin Ratio Urine Color Yellow Urine Clarity Clear Urine pH 6.0 Ur Specific [place] 1.013 Urine Protein 100 Urine Glucose (UA) Neg Urine Ketones Negative Urine Blood Negative Urine Nitrate Negative Urine Bilirubin Negative Urine Urobilinogen 0.2-1.0 Ur Leukocyte Esterase Neg Urine RBC (Auto) < 1 Urine Microscopic WBC 1 Ur Squamous Epith Cells 1 07/25/17 07/25/17 05:00 06:50 WBC RBC Hgb Hct MCV MCH MCHC RDW Plt Count MPV Neut % (Auto) Lymph % (Auto) [place] % (Auto) Eos % (Auto) Baso % (Auto) Neut # (Auto) Lymph # (Auto) [place] # (Auto) Eos # (Auto) Baso # (Auto) Neutrophils % (Manual) Band Neutrophils % Lymphocytes % (Manual) Monocytes % (Manual) Nucleated RBC % Toxic Granulation Platelet Estimate Large Platelets Hypochromasia (manual) Poikilocytosis (manual Anisocytosis (manual) Ovalocytes Schistocytes PT INR APTT Sodium 146 Potassium 4.8 Chloride 101 Carbon Dioxide 33 H Anion Gap 17 BUN 48 H Creatinine 1.3 H Est GFR ( Amer) 50 Est GFR (Non-Af Amer) 41 Random Glucose 132 H Calcium 8.9 Total Bilirubin AST ALT Alkaline Phosphatase Troponin I 0.1340 H* Total Protein Albumin Globulin Albumin/Globulin Ratio Urine Color Urine Clarity Urine pH Ur Specific [place] Urine Protein Urine Glucose (UA) Urine Ketones Urine Blood Urine Nitrate Urine Bilirubin Urine Urobilinogen Ur Leukocyte Esterase Urine RBC (Auto) Urine Microscopic WBC Ur Squamous Epith Cells rewiewed J.P. - Imaging and Cardiology Chest x-ray Status: Report reviewed by me (Antonio) Assessment & Plan (1) Asthma exacerbation with COPD (chronic obstructive pulmonary disease) Status: Acute Priority: High (2) OLIVIA (obstructive sleep apnea) Status: Chronic Priority: Medium (3) CHF (congestive heart failure) Status: Chronic Priority: Medium (4) SLE (systemic lupus erythematosus) Status: Chronic Priority: Medium - Assessment and Plan (Free Text) Plan: Continue NC 2 L/M, Duoneb Tx, Solumedrol IV. Cardiology f/u for NSTEMI - Date & Time Date: 07/25/17 Time: 11:20
--- NOTE | 2017-07-25 14:33 | PQF GENQUE ---
Dr. Marino, 2 queries: 1. Please clarify type of asthma: Mild intermittent Mild persistent Moderate persistent Severe persistent Other (please specify)__Unable to determine Clinically unable to determine Unknown 2. Please clarify acuity of asthma: Uncomplicated With exacerbation(acute) With status asthmaticus Other (please specify) With exacerbation Clinically unable to determine Unknown ER record and H and P: Hx. Asthma H and P: Assessment includes; Acute exacerbation of COPD ;Duoneb via nebulizer QID Albuterol via nebulizer q 4hrs prn for wheezing/SOB ,Solumedrol IVPB q 8hrs. pulmonary consult with Dr Thomas This form is a permanent part of the medical record Clarification of your documentation is requested to better reflect the severity of illness and intensity of treatment of your patient. Indicators present [] Specify: [] [] Specify: [] [] Specify: [] [] Specify: [] Location in the medical record that reflects the above clinical findings: [] Treatment Provided: [] PHYSICIAN'S RESPONSE Based on your medical judgment of the clinical indicators outlined above please clarify the following: [] Practitioner response [] If unable to determine, please check the box, sign and date. Present On Admission (POA) Indicator: [x] Present at the time of admission [] Not present at the time of admission [] Clinically Undetermined In responding to this query, please exercise your independent professional judgment. The fact that a question is asked does not imply that any particular answer is desired or expected. Thank you for your clarification on this documentation. If you have any questions please call. * Thank you, Lauren Kim RN ext. #[phone] MTDD
--- NOTE | 2017-07-25 17:53 | CP.PCM.CON ---
History of Present Illness - History of Present Illness History of Present Illness: CC: Dyspnea. HPI: I have been requested on cardiology consultation by Dr. Marino on Ms. Sykes who is a pleasant 61 year old female with a PMH of CAD, Lupus, Rheumatoid arthritis, COPD and pulmonary hypertension who was recently discharged after treatment for COPD exacerbation only to return with continued shortness of breath with minimal effort. She is essentially bed bound and even movement in bed causes her to become short of breath. The patient denies fevers , but did have chills and a productive yellow cough. She also complained of chest pain earlier today which resolved with SL NTG, NTP and morphine. An ECG revealed NSR, anterior and lateral T wave inversions c/w ischemia which were unchanged from a prior ECG. The cardiac troponins are mildly elevated but similar to the prior admission. An ECHO performed in May 2017 was reviewed by me personally and revealed LVEF 65-70%, no wall motion abnormalities, moderate to severe MR, severe TR and severe pulmonary hypertension. A chest Xray revealed no acute findings and the remaining labs revealed a Hgb of 10 g/dl and a BUN/Cr of 48/1.3, otherwise were essentially unremarkable. Review of telemetry was performed by me personally and revealed NSR without any arrhythmias. She currently resting comfortably eating dinner without chest pain but still has baseline dyspnea. Review of Systems - Constitutional Constitutional: As Per HPI, Chills, Malaise, Weakness. absent: Fever - EENT Eyes: absent: Blurred Vision Ears: absent: Decreased Hearing, Dizziness Nose/Mouth/Throat: Dry Mouth. absent: Nasal Congestion, Dysphagia, Sore Throat , Neck Pain - Cardiovascular Cardiovascular: Dyspnea, Dyspnea on Exertion. absent: Chest Pain, Edema, Palpitations, Syncope - Respiratory Respiratory: Cough, Dyspnea, Dyspnea on Exertion, Wheezing, Pain with Coughing - Gastrointestinal Gastrointestinal: absent: Abdominal Pain, Constipation, Nausea, Vomiting - Genitourinary Genitourinary: absent: Dysuria, Flank Pain, Hematuria, Urinary Frequency - Musculoskeletal Musculoskeletal: Arthralgias, Joint Swelling, Limited Range of Motion, Muscle Weakness. absent: Back Pain, Muscle Cramps - Integumentary Integumentary: absent: Rash, Swelling - Neurological Neurological: Weakness. absent: Abnormal Speech, Dizziness, Focal Weakness - Psychiatric Psychiatric: Anxiety - Endocrine Endocrine: Fatigue. absent: Palpitations - Hematologic/Lymphatic Hematologic: absent: Easy Bleeding, Easy Bruising Past Patient History - Infectious Disease Hx of Infectious Diseases: None - Tetanus Immunizations Tetanus Immunization: Unknown - Past Medical History & Family History Past Medical History?: Yes - Past Social History Smoking Status: Never Smoked Alcohol: None Drugs: Denies Home Situation {Lives}: With Family - CARDIAC Hx Cardiac Disorders: Yes Hx Cardia Arrhythmia: Yes Hx Circulatory Problems: No Hx Congestive Heart Failure: Yes Hx Heart Attack: No Hx Hypercholesterolemia: Yes Hx Hypertension: Yes Hx Peripheral Edema: Yes - PULMONARY Hx Respiratory Disorders: Yes Hx Asthma: Yes Hx Chronic Obstructive Pulmonary Disease (COPD): Yes Hx Sleep Apnea: Yes - NEUROLOGICAL Hx Neurological Disorder: Yes Hx Seizures: No (denies) Hx Transient Ischemic Attacks (TIA): Yes - HEENT Hx HEENT Problems: No - RENAL Hx Chronic Kidney Disease: No - ENDOCRINE/METABOLIC Hx Endocrine Disorders: No - HEMATOLOGICAL/ONCOLOGICAL Hx Blood Disorders: Yes Hx Anemia: Yes Hx Human Immunodeficiency Virus (HIV): No - INTEGUMENTARY Hx Dermatological Problems: No - MUSCULOSKELETAL/RHEUMATOLOGICAL Hx Musculoskeletal Disorders: Yes Hx Arthritis: Yes Hx Falls: No Hx Osteoporosis: Yes Hx Rheumatoid Arthritis: Yes - GASTROINTESTINAL Hx Gastrointestinal Disorders: Yes Hx Diverticulitis: Yes Hx Gastritis: Yes - GENITOURINARY/GYNECOLOGICAL Hx Genitourinary Disorders: Yes - PSYCHIATRIC Hx Psychophysiologic Disorder: Yes Hx Anxiety: Yes Hx Depression: Yes Hx Substance Use: No - SURGICAL HISTORY Hx Surgeries: Yes Hx Appendectomy: Yes Hx Cholecystectomy: No Hx Coronary Stent: Yes ([facility] [place] - ANESTHESIA Hx Anesthesia: Yes Hx Anesthesia Reactions: No Hx Malignant Hyperthermia: No Meds Allergies/Adverse Reactions: Allergies Allergy/AdvReac Type Severity Reaction Status Date / Time No Known Allergies Allergy Verified 07/19/17 21:44 - Medications Medications: Current Medications Acetaminophen (Tylenol 325mg Tab) 650 mg PO Q4H PRN PRN Reason: Pain, Mild (1-3) Last Admin: 07/25/17 05:06 Dose: 650 mg Albuterol Sulfate (Albuterol 0.083% Inhal Lotus (2.5 Mg/3 Ml) Ud) 2.5 mg INH RQ6 PRN PRN Reason: Shortness of Breath Last Admin: 07/25/17 05:25 Dose: 2.5 mg Albuterol/Ipratropium (Duoneb 3 Mg/0.5 Mg (3 Ml) Ud) 3 ml INH RQID [facility] Last Admin: 07/25/17 15:58 Dose: 3 ml Aspirin (Aspirin) 325 mg PO DAILY [facility] Last Admin: 07/25/17 09:43 Dose: 325 mg Atorvastatin Calcium (Lipitor) 10 mg PO DAILY [facility] Last Admin: 07/25/17 09:38 Dose: 10 mg Clopidogrel Bisulfate (Plavix) 75 mg PO DAILY [facility] Last Admin: 07/25/17 09:39 Dose: 75 mg Docusate Sodium (Colace) 100 mg PO BID PRN PRN Reason: Constipation Enoxaparin Sodium (Lovenox) 80 mg SC Q12 [facility] PRN Reason: Protocol Last Admin: 07/25/17 09:59 Dose: 80 mg Escitalopram Oxalate (Lexapro) 10 mg PO DAILY [facility] Last Admin: 07/25/17 09:38 Dose: 10 mg Folic Acid (Folic Acid) 1 mg PO DAILY [facility] Last Admin: 07/25/17 09:37 Dose: 1 mg Furosemide (Lasix) 40 mg PO DAILY [facility] Last Admin: 07/25/17 09:38 Dose: 40 mg Home Med (Methotrexate Sodium [Trexall]) 1 tab PO QWK [facility] Hydroxychloroquine Sulfate (Plaquenil) 200 mg PO Q12H [facility] PRN Reason: Protocol Last Admin: 07/25/17 16:52 Dose: 200 mg Methylprednisolone (Solu-Medrol) 40 mg IVP Q8H [facility] Last Admin: 07/25/17 16:52 Dose: 40 mg Metoprolol Succinate (Toprol Xl) 25 mg PO DAILY [facility] Last Admin: 07/25/17 09:40 Dose: Not Given Morphine Sulfate (Morphine) 4 mg IVP Q4 PRN PRN Reason: chest pain Last Admin: 07/25/17 11:03 Dose: 4 mg Nitroglycerin (Nitrostat Sl Tab) 0.4 mg SL Q5M PRN PRN Reason: chest pain Pantoprazole Sodium (Protonix Ec Tab) 40 mg PO DAILY [facility] Last Admin: 07/25/17 09:40 Dose: 40 mg Physical Exam - Constitutional Appears: Non-toxic, No Acute Distress, Older Than Stated Age, Chronically Ill - Head Exam Head Exam: ATRAUMATIC, NORMAL INSPECTION, NORMOCEPHALIC - Eye Exam Eye Exam: Normal appearance, PERRL - ENT Exam ENT Exam: Mucous Membranes Dry - Neck Exam Neck exam: Positive for: Full Rom, Normal Inspection - Respiratory Exam Respiratory Exam: Rhonchi, Wheezes. absent: Rales, Respiratory Distress, Stridor - Cardiovascular Exam Cardiovascular Exam: REGULAR RHYTHM, +S1, +S2, Systolic Murmur. absent: Gallop , Rubs - GI/Abdominal Exam GI & Abdominal Exam: Soft. absent: Distended, Guarding, Rebound - Rectal Exam Rectal Exam: Deferred - Extremities Exam Extremities exam: Positive for: normal inspection. Negative for: joint swelling , pedal edema, tenderness - Back Exam Back exam: NORMAL INSPECTION - Neurological Exam Neurological exam: Alert, Oriented x3 - Psychiatric Exam Psychiatric exam: Anxious, Normal Affect, Normal Mood - Skin Skin Exam: Dry, Intact, Normal Color, Warm Results - Vital Signs Recent Vital Signs: Last Vital Signs Temp 97.4 F L 07/25/17 16:01 Pulse 54 L 07/25/17 16:01 Resp 20 07/25/17 16:01 BP 148/73 07/25/17 16:01 Pulse Ox 98 07/25/17 16:01 - Labs Result Diagrams: 07/25/17 05:00 07/25/17 05:00 Labs: Laboratory Results - last 24 hr 07/24/17 07/25/17 07/25/17 22:50 05:00 05:00 WBC 6.2 RBC 3.45 L Hgb 10.0 L Hct 33.1 L MCV 96.0 MCH 28.9 MCHC 30.1 L RDW 23.7 H Plt Count 131 MPV 10.0 Neut % (Auto) 85.6 H Lymph % (Auto) 6.6 L Mckinley % (Auto) 6.6 Eos % (Auto) 0.5 Baso % (Auto) 0.7 Neut # (Auto) 5.3 Lymph # (Auto) 0.4 L Mckinley # (Auto) 0.4 Eos # (Auto) 0.0 Baso # (Auto) 0.0 Sodium 146 Potassium 4.8 Chloride 101 Carbon Dioxide 33 H Anion Gap 17 BUN 48 H Creatinine 1.3 H Est GFR ( Amer) 50 Est GFR (Non-Af Amer) 41 Random Glucose 132 H Calcium 8.9 Troponin I 0.1200 07/25/17 06:50 WBC RBC Hgb Hct MCV MCH MCHC RDW Plt Count MPV Neut % (Auto) Lymph % (Auto) Mckinley % (Auto) Eos % (Auto) Baso % (Auto) Neut # (Auto) Lymph # (Auto) Mckinley # (Auto) Eos # (Auto) Baso # (Auto) Sodium Potassium Chloride Carbon Dioxide Anion Gap BUN Creatinine Est GFR ( Amer) Est GFR (Non-Af Amer) Random Glucose Calcium Troponin I 0.1340 H* Assessment & Plan - Assessment and Plan (Free Text) Assessment: 1. Dyspnea. 2. COPD exacerbation. 3. Pulmonary hypertension. 4. Valvular heart disease. 5. Lupus. 6. Rheumatoid arthritis. 7. Anemia. 8. Pre renal azotemia. 9. Angina pectoris. 10. CAD. 11. Abnormal ECG. 12. Elevated cardiac troponins. Plan: 1. Continue nebs, steroids. 2. Bipap as tolerated. 3. Continue DAPT. 4. Decrease furosemide to 20 mg daily. 5. Prognosis guarded. Management was discussed with the patient and her sister, Mary, over the telephone and they are agreeable to the current recommendations. The patient is a DNR/DNI. Will follow. Thank you. - Date & Time Date: 07/25/17 Time: 20:35
--- NOTE | 2017-07-25 19:11 | CARD ---
APPROVED REPORT EKG Measurement Heart [id number] [id number] <Conclusion> Sinus bradycardia ST & T wave abnormality, consider lateral ischemia Abnormal ECG
--- NOTE | 2017-07-25 19:29 | CARD ---
APPROVED REPORT EKG Measurement Heart [id number] LA 120P0 [id number] <Conclusion> Sinus bradycardia RSR' or QR pattern in V1 suggests right ventricular conduction delay T wave abnormality, consider anterolateral ischemia Prolonged QT Abnormal ECG
[2017-07-26] MEDS: MethylPREDNISolone 40 mg Vial IVP SCH ×3 (01:53→16:36)
[2017-07-26] MEDS: Albuterol-Ipratrop 3 mg / 0.5 (3 ml) UD INH SCH ×4 (07:56→19:15)
[2017-07-26] MEDS: Enoxaparin 80 mg Syringe SC SCH ×2 (09:35→20:47)
[2017-07-26] MEDS: Pantoprazole 40 mg EC Tab PO SCH (09:36)
[2017-07-26] MEDS: Metoprolol Succinate 25 mg XL Tab PO SCH (09:36)
--- NOTE | 2017-07-26 11:50 | CP.PCM.PN ---
Subjective - Date & Time of Evaluation Date of Evaluation: 07/26/17 Time of Evaluation: 10:00 - Subjective Subjective: No fever denies CP at present SOB on exertion occ cough occ wheeze Troponin elevated denies abd pain Objective - Vital Signs/Intake and Output Vital Signs (last 24 hours): Temp Pulse Resp BP Pulse Ox 97.0 F L 60 20 171/76 H 97 07/26/17 08:24 07/26/17 09:36 07/26/17 08:24 07/26/17 09:37 07/26/17 08:24 - Medications Medications: Current Medications Acetaminophen (Tylenol 325mg Tab) 650 mg PO Q4H PRN PRN Reason: Pain, Mild (1-3) Last Admin: 07/25/17 05:06 Dose: 650 mg Albuterol Sulfate (Albuterol 0.083% Inhal Lotus (2.5 Mg/3 Ml) Ud) 2.5 mg INH RQ6 PRN PRN Reason: Shortness of Breath Last Admin: 07/25/17 05:25 Dose: 2.5 mg Albuterol/Ipratropium (Duoneb 3 Mg/0.5 Mg (3 Ml) Ud) 3 ml INH RQID [facility] Last Admin: 07/26/17 11:04 Dose: 3 ml Aspirin (Aspirin) 325 mg PO DAILY [facility] Last Admin: 07/26/17 09:37 Dose: 325 mg Atorvastatin Calcium (Lipitor) 10 mg PO DAILY [facility] Last Admin: 07/26/17 09:37 Dose: 10 mg Clopidogrel Bisulfate (Plavix) 75 mg PO DAILY [facility] Last Admin: 07/26/17 09:38 Dose: 75 mg Docusate Sodium (Colace) 100 mg PO BID PRN PRN Reason: Constipation Enoxaparin Sodium (Lovenox) 80 mg SC Q12 [facility] PRN Reason: Protocol Last Admin: 07/26/17 09:35 Dose: 80 mg Escitalopram Oxalate (Lexapro) 10 mg PO DAILY [facility] Last Admin: 07/26/17 09:36 Dose: 10 mg Folic Acid (Folic Acid) 1 mg PO DAILY [facility] Last Admin: 07/26/17 09:37 Dose: 1 mg Furosemide (Lasix) 40 mg PO DAILY [facility] Last Admin: 07/26/17 09:37 Dose: 40 mg Home Med (Methotrexate Sodium [Trexall]) 1 tab PO QWK [facility] Hydroxychloroquine Sulfate (Plaquenil) 200 mg PO Q12H [facility] PRN Reason: Protocol Last Admin: 07/26/17 05:21 Dose: 200 mg Methylprednisolone (Solu-Medrol) 40 mg IVP Q8H [facility] Last Admin: 07/26/17 09:36 Dose: 40 mg Metoprolol Succinate (Toprol Xl) 25 mg PO DAILY [facility] Last Admin: 07/26/17 09:36 Dose: 25 mg Morphine Sulfate (Morphine) 4 mg IVP Q4 PRN PRN Reason: chest pain Last Admin: 07/25/17 11:03 Dose: 4 mg Nitroglycerin (Nitrostat Sl Tab) 0.4 mg SL Q5M PRN PRN Reason: chest pain Pantoprazole Sodium (Protonix Ec Tab) 40 mg PO DAILY [facility] Last Admin: 07/26/17 09:36 Dose: 40 mg - Labs Labs: 07/25/17 05:00 07/25/17 05:00 PT 12.2 Seconds (9.8-13.1) 07/24/17 16:15 INR 1.1 (0.9-1.2) 07/24/17 16:15 APTT 22.4 Seconds (25.6-37.1) L 07/24/17 16:15 - Constitutional Appears: No Acute Distress, Chronically Ill - Head Exam Head Exam: NORMAL INSPECTION, NORMOCEPHALIC - Eye Exam Pupil Exam: NORMAL ACCOMODATION - ENT Exam ENT Exam: Mucous Membranes Moist, Normal External Ear Exam - Neck Exam Neck Exam: Full ROM. absent: Meningismus - Respiratory Exam Respiratory Exam: Decreased Breath Sounds, Rhonchi, Wheezes - Cardiovascular Exam Cardiovascular Exam: REGULAR RHYTHM, +S1, +S2 - GI/Abdominal Exam GI & Abdominal Exam: Soft, Normal Bowel Sounds. absent: Tenderness - Extremities Exam Extremities Exam: Normal Capillary Refill, Pedal Edema. absent: Calf Tenderness - Back Exam Back Exam: absent: CVA tenderness (L), CVA tenderness (R), vertebral tenderness - Neurological Exam Neurological Exam: Alert, Awake, Oriented x3 - Psychiatric Exam Psychiatric exam: Normal Affect, Normal Mood - Skin Skin Exam: Dry, Normal Color, Warm Assessment and Plan - Assessment and Plan (Free Text) Assessment: Assessment: 61 yo female, well known to the hospitalist group due to multiple readmissions , with history of SLE, RA, Asthma/COPD, CAD,CHF,DVT, PAH and previous CVA , was just recently discharged , was brought back bec of chest pain, SOB, and 3 episodes of vomiting of previously taken food. Denied having fever, no abd pain. Pt was found to have + Troponin. She was admitted to Telemetry , started on ASA , Plavix, Therapeutic Lovenox. Cardiology consulted. 1. NSTEMI chest pain not relieved with SL NTG but relieved with IV Morphine Troponinx 3 elevated continue ASA, Plavix and therapeutic Lovenox continue Metoprolol and statin Cardiology consulted: Dr Goel- recommended medical mgt Pt is DNR/DNI Trop still elevated - will cont with BID Lovenox and cont Telemetry monitoring 2. Mild acute exacerbation of COPD/Asthma hx of of mod persistent Asthma SOB on exertion, occ wheeze on exam Duoneb via nebulizer QID Albuterol via nebulizer q 4hrs prn for wheezing/SOB Taper Solumedrol IV pulmonary consulted Dr Thomas Bipap q hs cont Oxygen 3liters /NC 3. CHF, chronic, diastolic dysfunction, EF 60% continue Furosemide and Metoprolol 4. RA and SLE Cont Plaquenil and Methotrexate Continue Folic Acid 5. DVT Prophylaxis on Lovenox
--- NOTE | 2017-07-26 13:25 | CP.PCM.PN ---
Subjective - Date & Time of Evaluation Date of Evaluation: 07/26/17 Time of Evaluation: 12:10 - Subjective Subjective: F/U COPD Bronchial Asthma. breathing better, "dry cough" Objective - Vital Signs/Intake and Output Vital Signs (last 24 hours): Temp Pulse Resp BP Pulse Ox 97.8 F 63 20 167/89 H 97 07/26/17 12:18 07/26/17 12:18 07/26/17 12:18 07/26/17 12:18 07/26/17 12:18 - Medications Medications: Current Medications Acetaminophen (Tylenol 325mg Tab) 650 mg PO Q4H PRN PRN Reason: Pain, Mild (1-3) Last Admin: 07/25/17 05:06 Dose: 650 mg Albuterol Sulfate (Albuterol 0.083% Inhal Lotus (2.5 Mg/3 Ml) Ud) 2.5 mg INH RQ6 PRN PRN Reason: Shortness of Breath Last Admin: 07/25/17 05:25 Dose: 2.5 mg Albuterol/Ipratropium (Duoneb 3 Mg/0.5 Mg (3 Ml) Ud) 3 ml INH RQID [facility] Last Admin: 07/26/17 11:04 Dose: 3 ml Aspirin (Aspirin) 325 mg PO DAILY [facility] Last Admin: 07/26/17 09:37 Dose: 325 mg Atorvastatin Calcium (Lipitor) 10 mg PO DAILY [facility] Last Admin: 07/26/17 09:37 Dose: 10 mg Clopidogrel Bisulfate (Plavix) 75 mg PO DAILY [facility] Last Admin: 07/26/17 09:38 Dose: 75 mg Docusate Sodium (Colace) 100 mg PO BID PRN PRN Reason: Constipation Enoxaparin Sodium (Lovenox) 80 mg SC Q12 [facility] PRN Reason: Protocol Last Admin: 07/26/17 09:35 Dose: 80 mg Escitalopram Oxalate (Lexapro) 10 mg PO DAILY [facility] Last Admin: 07/26/17 09:36 Dose: 10 mg Folic Acid (Folic Acid) 1 mg PO DAILY [facility] Last Admin: 07/26/17 09:37 Dose: 1 mg Furosemide (Lasix) 40 mg PO DAILY [facility] Last Admin: 07/26/17 09:37 Dose: 40 mg Home Med (Methotrexate Sodium [Trexall]) 1 tab PO QWK [facility] Hydroxychloroquine Sulfate (Plaquenil) 200 mg PO Q12H [facility] PRN Reason: Protocol Last Admin: 07/26/17 05:21 Dose: 200 mg Methylprednisolone (Solu-Medrol) 30 mg IVP Q8 [facility] Metoprolol Succinate (Toprol Xl) 25 mg PO DAILY [facility] Last Admin: 07/26/17 09:36 Dose: 25 mg Morphine Sulfate (Morphine) 4 mg IVP Q4 PRN PRN Reason: chest pain Last Admin: 07/25/17 11:03 Dose: 4 mg Nitroglycerin (Nitrostat Sl Tab) 0.4 mg SL Q5M PRN PRN Reason: chest pain Pantoprazole Sodium (Protonix Ec Tab) 40 mg PO DAILY [facility] Last Admin: 07/26/17 09:36 Dose: 40 mg - Labs Labs: 07/25/17 05:00 07/25/17 05:00 PT 12.2 Seconds (9.8-13.1) 07/24/17 16:15 INR 1.1 (0.9-1.2) 07/24/17 16:15 APTT 22.4 Seconds (25.6-37.1) L 07/24/17 16:15 - Constitutional Appears: No Acute Distress - Head Exam Head Exam: NORMAL INSPECTION - Eye Exam Eye Exam: PERRL - ENT Exam ENT Exam: Normal Exam - Neck Exam Neck Exam: Normal Inspection - Respiratory Exam Respiratory Exam: Decreased Breath Sounds (at bases) - Cardiovascular Exam Cardiovascular Exam: REGULAR RHYTHM - GI/Abdominal Exam GI & Abdominal Exam: Soft, Normal Bowel Sounds - Extremities Exam Extremities Exam: Normal Inspection - Back Exam Back Exam: NORMAL INSPECTION - Neurological Exam Neurological Exam: Alert, Oriented x3 Additional comments: Mild left sided weakness. - Psychiatric Exam Psychiatric exam: Depressed - Skin Skin Exam: Warm Assessment and Plan (1) Asthma exacerbation with COPD (chronic obstructive pulmonary disease) Status: Acute (2) OLIVIA (obstructive sleep apnea) Status: Chronic (3) CHF (congestive heart failure) Status: Chronic (4) SLE (systemic lupus erythematosus) Status: Chronic - Assessment and Plan (Free Text) Plan: taper Solu Medrol , continue DuoNeb , Lasix
[2017-07-26] MEDS ORDERED: methylPREDNISolone 30 MG in Sodium Chloride 0.9% 50 ML IV SCH (17:00)
[2017-07-27] MEDS: MethylPREDNISolone 40 mg Vial IVP SCH ×3 (01:44→17:25)
[2017-07-27 06:33] LABS: BASO % 0.4 % (0.0-2.0); HEMOGLOBIN 9.7 g/dL (12.0-16.0); LYMPH # 1.1 K/uL (1.0-4.3); LYMPH % 11.2 % (20.0-40.0); MEAN CELL VOLUME 96.4 fl (81.0-99.0); MEAN CORPUSCULAR HGB CONC 30.1 g/dL (33.0-37.0); MEAN PLATELET VOLUME 10.6 fl (7.2-11.7); MONO # 0.7 K/uL (0.0-0.8); MONO % 6.7 % (0.0-10.0); NEUT # 8.2 K/uL (1.8-7.0); NEUT % 81.7 % (50.0-75.0); NRBC % 5.3 % (0.0-0.0); RBC 3.35 Mil/uL (3.80-5.20); RED CELL DISTRIBUTION WIDTH 24.3 % (11.5-14.5)
[2017-07-27 06:38] LABS: ALB/GLOB RATIO 1.1 (1.0-2.1); ALBUMIN 3.2 g/dL (3.5-5.0); ALT/SGPT 71 U/L (9-52); AST/SGOT 46 U/L (14-36); BLOOD UREA NITROGEN 49 mg/dl (7-17); CALCIUM 8.4 mg/dL (8.4-10.2); GFR AFRICAN-AMERICAN > 60; GFR NON-AFRICAN AMERICAN > 60
[2017-07-27] MEDS: Albuterol-Ipratrop 3 mg / 0.5 (3 ml) UD INH SCH ×4 (07:39→19:32)
--- NOTE | 2017-07-27 08:10 | CP.PCM.PN ---
Subjective - Date & Time of Evaluation Date of Evaluation: 07/27/17 Time of Evaluation: 08:08 - Subjective Subjective: comfortable occ wheezing, mild dyspnea denies pain HD stable NAD Objective - Vital Signs/Intake and Output Vital Signs (last 24 hours): Temp Pulse Resp BP Pulse Ox 97.5 F L 61 18 149/62 97 07/27/17 05:00 07/27/17 05:34 07/27/17 05:00 07/27/17 05:00 07/27/17 00:36 - Medications Medications: Current Medications Acetaminophen (Tylenol 325mg Tab) 650 mg PO Q4H PRN PRN Reason: Pain, Mild (1-3) Last Admin: 07/25/17 05:06 Dose: 650 mg Albuterol Sulfate (Albuterol 0.083% Inhal Lotus (2.5 Mg/3 Ml) Ud) 2.5 mg INH RQ6 PRN PRN Reason: Shortness of Breath Last Admin: 07/25/17 05:25 Dose: 2.5 mg Albuterol/Ipratropium (Duoneb 3 Mg/0.5 Mg (3 Ml) Ud) 3 ml INH RQID [facility] Last Admin: 07/27/17 07:39 Dose: 3 ml Alprazolam (Xanax) 0.5 mg PO HS PRN PRN Reason: Insomnia Last Admin: 07/26/17 23:20 Dose: 0.5 mg Aspirin (Aspirin) 325 mg PO DAILY [facility] Last Admin: 07/26/17 09:37 Dose: 325 mg Atorvastatin Calcium (Lipitor) 10 mg PO DAILY [facility] Last Admin: 07/26/17 09:37 Dose: 10 mg Clopidogrel Bisulfate (Plavix) 75 mg PO DAILY [facility] Last Admin: 07/26/17 09:38 Dose: 75 mg Docusate Sodium (Colace) 100 mg PO BID PRN PRN Reason: Constipation Enoxaparin Sodium (Lovenox) 80 mg SC Q12 [facility] PRN Reason: Protocol Last Admin: 07/26/17 20:47 Dose: 80 mg Escitalopram Oxalate (Lexapro) 10 mg PO DAILY [facility] Last Admin: 07/26/17 09:36 Dose: 10 mg Folic Acid (Folic Acid) 1 mg PO DAILY [facility] Last Admin: 07/26/17 09:37 Dose: 1 mg Furosemide (Lasix) 40 mg PO DAILY [facility] Last Admin: 07/26/17 09:37 Dose: 40 mg Home Med (Methotrexate Sodium [Trexall]) 1 tab PO QWK [facility] Hydroxychloroquine Sulfate (Plaquenil) 200 mg PO Q12H [facility] PRN Reason: Protocol Last Admin: 07/27/17 05:08 Dose: 200 mg Methylprednisolone (Solu-Medrol) 30 mg IVP Q8 [facility] Last Admin: 07/27/17 01:44 Dose: 30 mg Metoprolol Succinate (Toprol Xl) 25 mg PO DAILY [facility] Last Admin: 07/26/17 09:36 Dose: 25 mg Morphine Sulfate (Morphine) 4 mg IVP Q4 PRN PRN Reason: chest pain Last Admin: 07/25/17 11:03 Dose: 4 mg Nitroglycerin (Nitrostat Sl Tab) 0.4 mg SL Q5M PRN PRN Reason: chest pain Pantoprazole Sodium (Protonix Ec Tab) 40 mg PO DAILY [facility] Last Admin: 07/26/17 09:36 Dose: 40 mg - Labs Labs: 07/27/17 05:35 07/27/17 05:35 PT 12.2 Seconds (9.8-13.1) 07/24/17 16:15 INR 1.1 (0.9-1.2) 07/24/17 16:15 APTT 22.4 Seconds (25.6-37.1) L 07/24/17 16:15 - Constitutional Appears: Non-toxic, No Acute Distress - Head Exam Head Exam: ATRAUMATIC, NORMOCEPHALIC - Eye Exam Eye Exam: EOMI, Normal appearance, PERRL - ENT Exam ENT Exam: Mucous Membranes Moist, Normal Oropharynx - Respiratory Exam Respiratory Exam: Wheezes, NORMAL BREATHING PATTERN - Cardiovascular Exam Cardiovascular Exam: RRR, +S1, +S2 - GI/Abdominal Exam GI & Abdominal Exam: Soft, Normal Bowel Sounds. absent: Tenderness - Extremities Exam Extremities Exam: absent: Joint Swelling, Pedal Edema - Back Exam Back Exam: absent: CVA tenderness (L), CVA tenderness (R) - Neurological Exam Neurological Exam: Alert, Awake - Psychiatric Exam Psychiatric exam: Normal Affect, Normal Mood - Skin Skin Exam: Dry, Warm Assessment and Plan - Assessment and Plan (Free Text) Plan: 61 yo female, well known to the hospitalist group due to multiple readmissions , with history of SLE, RA, Asthma/COPD, CAD,CHF,DVT, PAH and previous CVA , was just recently discharged, was brought back bec of chest pain, SOB, and 3 episodes of vomiting of previously taken food. Denied having fever, no abd pain. Pt was found to have + Troponin. She was admitted to Telemetry , started on ASA , Plavix, Therapeutic Lovenox. Cardiology consulted. 1. NSTEMI chest pain not relieved with SL NTG but relieved with IV Morphine Troponinx 3 elevated continue ASA, Plavix and therapeutic Lovenox continue Metoprolol and statin Cardiology consulted: Dr Goel- recommended medical mgt Pt is DNR/DNI Trop still elevated - will cont with BID Lovenox and cont Telemetry monitoring 2. Mild acute exacerbation of COPD/Asthma hx of of mod persistent Asthma SOB on exertion, occ wheeze on exam Duoneb via nebulizer QID Albuterol via nebulizer q 4hrs prn for wheezing/SOB Taper Solumedrol IV pulmonary consulted Dr Thomas Bipap q hs cont Oxygen 3liters /NC 3. CHF, chronic, diastolic dysfunction, EF 60% continue Furosemide and Metoprolol 4. RA and SLE Cont Plaquenil and Methotrexate Continue Folic Acid 5. DVT Prophylaxis on Lovenox
[2017-07-27] MEDS: Enoxaparin 80 mg Syringe SC SCH ×2 (10:39→20:24)
[2017-07-27] MEDS: Metoprolol Succinate 25 mg XL Tab PO SCH (10:40)
[2017-07-27] MEDS: Pantoprazole 40 mg EC Tab PO SCH (10:41)
--- NOTE | 2017-07-27 12:53 | CP.PCM.PN ---
Subjective - Date & Time of Evaluation Date of Evaluation: 07/27/17 Time of Evaluation: 12:30 - Subjective Subjective: F/U COPD Bronchial Asthma cough at times paroxismal, during examination Patient is coughing with yellowish color flegm with streaks of blood Objective - Vital Signs/Intake and Output Vital Signs (last 24 hours): Temp Pulse Resp BP Pulse Ox 97.9 F 64 20 134/74 99 07/27/17 12:18 07/27/17 12:18 07/27/17 12:18 07/27/17 12:18 07/27/17 12:18 - Medications Medications: Current Medications Acetaminophen (Tylenol 325mg Tab) 650 mg PO Q4H PRN PRN Reason: Pain, Mild (1-3) Last Admin: 07/25/17 05:06 Dose: 650 mg Albuterol Sulfate (Albuterol 0.083% Inhal Lotus (2.5 Mg/3 Ml) Ud) 2.5 mg INH RQ6 PRN PRN Reason: Shortness of Breath Last Admin: 07/25/17 05:25 Dose: 2.5 mg Albuterol/Ipratropium (Duoneb 3 Mg/0.5 Mg (3 Ml) Ud) 3 ml INH RQID [place] Last Admin: 07/27/17 11:28 Dose: 3 ml Alprazolam (Xanax) 0.5 mg PO HS PRN PRN Reason: Insomnia Last Admin: 07/26/17 23:20 Dose: 0.5 mg Aspirin (Aspirin) 325 mg PO DAILY [facility] Last Admin: 07/27/17 10:43 Dose: 325 mg Atorvastatin Calcium (Lipitor) 10 mg PO DAILY COUNT [facility] Last Admin: 07/27/17 10:41 Dose: 10 mg Clopidogrel Bisulfate (Plavix) 75 mg PO DAILY [facility] Last Admin: 07/27/17 10:40 Dose: 75 mg Docusate Sodium (Colace) 100 mg PO BID PRN PRN Reason: Constipation Last Admin: 07/27/17 10:39 Dose: 100 mg Enoxaparin Sodium (Lovenox) 80 mg SC Q12 [place] PRN Reason: Protocol Last Admin: 07/27/17 10:39 Dose: 80 mg Escitalopram Oxalate (Lexapro) 10 mg PO DAILY COUNT [facility] Last Admin: 07/27/17 10:40 Dose: 10 mg Folic Acid (Folic Acid) 1 mg PO DAILY [facility] Last Admin: 07/27/17 10:40 Dose: 1 mg Furosemide (Lasix) 40 mg PO DAILY [facility] Last Admin: 07/27/17 10:41 Dose: 40 mg Hydroxychloroquine Sulfate (Plaquenil) 200 mg PO Q12H [facility] PRN Reason: Protocol Last Admin: 07/27/17 05:08 Dose: 200 mg Methotrexate (Methotrexate) 10 mg PO QWK COUNT [facility]CLUD[facility] Methylprednisolone (Solu-Medrol) 30 mg IVP Q8 [facility] Last Admin: 07/27/17 10:39 Dose: 30 mg Metoprolol Succinate (Toprol Xl) 25 mg PO DAILY COUNT [facility] Last Admin: 07/27/17 10:40 Dose: Not Given Morphine Sulfate (Morphine) 4 mg IVP Q4 PRN PRN Reason: chest pain Last Admin: 07/25/17 11:03 Dose: 4 mg Nitroglycerin (Nitrostat Sl Tab) 0.4 mg SL Q5M PRN PRN Reason: chest pain Pantoprazole Sodium (Protonix Ec Tab) 40 mg PO DAILY COUNT [facility]CLUD[facility] Last Admin: 07/27/17 10:41 Dose: 40 mg - Labs Labs: 07/27/17 05:35 07/27/17 05:35 PT 12.2 Seconds (9.8-13.1) 07/24/17 16:15 INR 1.1 (0.9-1.2) 07/24/17 16:15 APTT 22.4 Seconds (25.6-37.1) L 07/24/17 16:15 - Constitutional Appears: Chronically Ill - Head Exam Head Exam: NORMAL INSPECTION - Eye Exam Eye Exam: PERRL - ENT Exam ENT Exam: Normal Exam - Neck Exam Neck Exam: Normal Inspection - Respiratory Exam Respiratory Exam: Decreased Breath Sounds (at bases), Rhonchi - Cardiovascular Exam Cardiovascular Exam: REGULAR RHYTHM - GI/Abdominal Exam GI & Abdominal Exam: Soft, Normal Bowel Sounds - Extremities Exam Extremities Exam: Normal Inspection - Back Exam Back Exam: NORMAL INSPECTION - Neurological Exam Neurological Exam: Alert, Oriented x3 Additional comments: mild left sided weakness - Psychiatric Exam Psychiatric exam: Anxious - Skin Skin Exam: Warm Assessment and Plan (1) Asthma exacerbation with COPD (chronic obstructive pulmonary disease) Status: Acute (2) OLIVIA (obstructive sleep apnea) Status: Chronic (3) CHF (congestive heart failure) Status: Chronic (4) SLE (systemic lupus erythematosus) Status: Chronic (5) Hemoptysis Status: Acute - Assessment and Plan (Free Text) Plan: Patient on Lovenox , CXR , Sputum C-S, cbc / cmp , PT , PTT , INR
[2017-07-27] MEDS ORDERED: Sodium Chloride 3% for Inhalation 4 ML VIAL.NEB IH PRN (13:03)
[2017-07-28] MEDS: MethylPREDNISolone 40 mg Vial IVP SCH ×3 (00:10→17:38)
[2017-07-28 06:20] LABS: BASO # 0.1 K/uL (0.0-0.2); BASO % 0.6 % (0.0-2.0); HEMOGLOBIN 9.3 g/dL (12.0-16.0); LYMPH # 0.3 K/uL (1.0-4.3); LYMPH % 2.9 % (20.0-40.0); MEAN CELL VOLUME 94.8 fl (81.0-99.0); MEAN CORPUSCULAR HEMOGLOBIN 28.3 pg (27.0-31.0); MEAN CORPUSCULAR HGB CONC 29.9 g/dL (33.0-37.0); MEAN PLATELET VOLUME 10.4 fl (7.2-11.7); MONO # 0.7 K/uL (0.0-0.8); MONO % 5.8 % (0.0-10.0); NEUT # 10.7 K/uL (1.8-7.0); NEUT % 90.7 % (50.0-75.0); NRBC % 5.1 % (0.0-0.0); PLATELET COUNT 130 K/uL (130-400); RBC 3.28 Mil/uL (3.80-5.20); RED CELL DISTRIBUTION WIDTH 24.3 % (11.5-14.5)
[2017-07-28 06:30] LABS: ALB/GLOB RATIO 1.1 (1.0-2.1); ALBUMIN 3.2 g/dL (3.5-5.0); ALT/SGPT 69 U/L (9-52); AST/SGOT 41 U/L (14-36); BLOOD UREA NITROGEN 48 mg/dl (7-17); CALCIUM 8.3 mg/dL (8.4-10.2); GFR AFRICAN-AMERICAN > 60; GFR NON-AFRICAN AMERICAN > 60
[2017-07-28 07:16] LABS: INR 1.2 (0.9-1.2); PARTIAL THROMBOPLASTIN TIME 30.4 Seconds (25.6-37.1); PROTHROMBIN TIME 13.1 Seconds (9.8-13.1)
[2017-07-28] MEDS: Albuterol-Ipratrop 3 mg / 0.5 (3 ml) UD INH SCH ×3 (07:21→15:20)
[2017-07-28 08:07] VITALS: RESP 18
[2017-07-28 08:13] LABS: LYMPHOCYTE 4 % (20-50); MONOCYTE 5 % (0-10); NEUTROPHIL 91 % (42-75); TOTAL CELLS COUNTED 100
[2017-07-28 08:18] LABS: ANISOCYTOSIS MODERATE; POIKILOCYTOSIS SLIGHT
[2017-07-28 08:19] LABS: OVALOCYTES SLIGHT; TARGET CELLS MARKED
[2017-07-28 08:20] LABS: HYPOCHROMIC MODERATE
[2017-07-28 08:21] LABS: LARGE PLATELETS PRESENT; PLATELET ESTIMATE NORMAL (NORMAL); POLYCHROMIC SLIGHT
[2017-07-28] MEDS: Enoxaparin 80 mg Syringe SC SCH (10:29)
[2017-07-28] MEDS: Metoprolol Succinate 25 mg XL Tab PO SCH (10:31)
[2017-07-28] MEDS: Pantoprazole 40 mg EC Tab PO SCH (10:32)
--- NOTE | 2017-07-28 11:20 | CP.PCM.DIS ---
Provider - Provider Date of Admission: 07/24/17 15:47 Attending physician: Zackary Marino MD Primary care physician: Dr. Albright Consults: Pulmonary consult Cardiology consult podiatry consult Time Spent in preparation of Discharge (in minutes): 15 Hospital Course - Lab Results Lab Results: Micro Results 07/24/17 15:15 Blood Blood Culture - Preliminary NO GROWTH AFTER 3 DAYS 07/24/17 14:55 Blood Blood Culture - Preliminary NO GROWTH AFTER 3 DAYS Most Recent Lab Values WBC 12.0 K/uL (4.8-10.8) H 07/28/17 06:00 RBC 3.28 Mil/uL (3.80-5.20) L 07/28/17 06:00 Hgb 9.3 g/dL (12.0-16.0) L 07/28/17 06:00 Hct 31.0 % (34.0-47.0) L 07/28/17 06:00 MCV 94.8 fl (81.0-99.0) 07/28/17 06:00 MCH 28.3 pg (27.0-31.0) 07/28/17 06:00 MCHC 29.9 g/dL (33.0-37.0) L 07/28/17 06:00 RDW 24.3 % (11.5-14.5) H 07/28/17 06:00 Plt Count 130 K/uL (130-400) 07/28/17 06:00 MPV 10.4 fl (7.2-11.7) 07/28/17 06:00 Neut % (Auto) 90.7 % (50.0-75.0) H 07/28/17 06:00 Lymph % (Auto) 2.9 % (20.0-40.0) L 07/28/17 06:00 [place] % (Auto) 5.8 % (0.0-10.0) 07/28/17 06:00 Eos % (Auto) 0.0 % (0.0-4.0) 07/28/17 06:00 Baso % (Auto) 0.6 % (0.0-2.0) 07/28/17 06:00 Neut # (Auto) 10.7 K/uL (1.8-7.0) H 07/28/17 06:00 Lymph # (Auto) 0.3 K/uL (1.0-4.3) L 07/28/17 06:00 [place] # (Auto) 0.7 K/uL (0.0-0.8) 07/28/17 06:00 Eos # (Auto) 0.0 K/uL (0.0-0.7) 07/28/17 06:00 Baso # (Auto) 0.1 K/uL (0.0-0.2) 07/28/17 06:00 Neutrophils % (Manual) 91 % (42-75) H 07/28/17 06:00 Band Neutrophils % 1 % (0-2) 07/24/17 14:50 Lymphocytes % (Manual) 4 % (20-50) L 07/28/17 06:00 Monocytes % (Manual) 5 % (0-10) 07/28/17 06:00 Nucleated RBC % 4 % (0-0) H 07/24/17 14:50 Toxic Granulation Present 07/24/17 14:50 Platelet Estimate Normal (NORMAL) 07/28/17 06:00 Large Platelets Present 07/28/17 06:00 Polychromasia Slight 07/28/17 06:00 Hypochromasia (manual) Moderate 07/28/17 06:00 Poikilocytosis (manual Slight 07/28/17 06:00 Anisocytosis (manual) Moderate 07/28/17 06:00 Macrocytosis (manual) Slight 07/28/17 06:00 Target Cells Marked 07/28/17 06:00 Ovalocytes Slight 07/28/17 06:00 Schistocytes Slight 07/24/17 14:50 PT 13.1 Seconds (9.8-13.1) 07/28/17 06:00 INR 1.2 (0.9-1.2) 07/28/17 06:00 APTT 30.4 Seconds (25.6-37.1) 07/28/17 06:00 Sodium 141 mmol/l (132-148) 07/28/17 06:00 Potassium 4.6 MMOL/L (3.6-5.0) 07/28/17 06:00 Chloride 98 mmol/L (98-107) 07/28/17 06:00 Carbon Dioxide 37 mmol/L (22-30) H 07/28/17 06:00 Anion Gap 11 (10-20) 07/28/17 06:00 BUN 48 mg/dl (7-17) H 07/28/17 06:00 Creatinine 0.9 mg/dl (0.7-1.2) 07/28/17 06:00 Est GFR ( Amer) > 60 07/28/17 06:00 Est GFR (Non-Af Amer) > 60 07/28/17 06:00 Random Glucose 154 mg/dL (65-105) H 07/28/17 06:00 Calcium 8.3 mg/dL (8.4-10.2) L 07/28/17 06:00 Total Bilirubin 0.8 mg/dl (0.2-1.3) 07/28/17 06:00 AST 41 U/L (14-36) H 07/28/17 06:00 ALT 69 U/L (9-52) H 07/28/17 06:00 Alkaline Phosphatase 126 U/L (38-126) 07/28/17 06:00 Troponin I 0.1210 ng/mL (0.00-0.120) H 07/25/17 15:32 Total Protein 6.0 G/DL (6.3-8.2) L 07/28/17 06:00 Albumin 3.2 g/dL (3.5-5.0) L 07/28/17 06:00 Globulin 2.9 gm/dL (2.2-3.9) 07/28/17 06:00 Albumin/Globulin Ratio 1.1 (1.0-2.1) 07/28/17 06:00 Urine Color Yellow (YELLOW) 07/24/17 16:48 Urine Clarity Clear (Clear) 07/24/17 16:48 Urine pH 6.0 (5.0-8.0) 07/24/17 16:48 Ur Specific [place] 1.013 (1.003-1.030) 07/24/17 16:48 Urine Protein 100 mg/dL (NEGATIVE) 07/24/17 16:48 Urine Glucose (UA) Neg mg/dL (Normal) 07/24/17 16:48 Urine Ketones Negative mg/dL (NEGATIVE) 07/24/17 16:48 Urine Blood Negative (NEGATIVE) 07/24/17 16:48 Urine Nitrate Negative (NEGATIVE) 07/24/17 16:48 Urine Bilirubin Negative (NEGATIVE) 07/24/17 16:48 Urine Urobilinogen 0.2-1.0 mg/dL (0.2-1.0) 07/24/17 16:48 Ur Leukocyte Esterase Neg [place]/uL (Negative) 07/24/17 16:48 Urine RBC (Auto) < 1 /hpf (0-3) 07/24/17 16:48 Urine Microscopic WBC 1 /hpf (0-5) 07/24/17 16:48 Ur Squamous Epith Cells 1 /hpf (0-5) 07/24/17 16:48 - Hospital Course Hospital Course: 61 yo female, well known to the hospitalist group due to multiple readmissions , with history of SLE, RA, Asthma/COPD on home O2 and CPAP , CAD,CHF,DVT, PAH and previous CVA ,obesity was just recently discharged, was brought back because of chest pain, SOB, and 3 episodes of vomiting of previously taken food. Denied having fever, no abdominal pain. She was found to have elevated Troponin. She was admitted to Telemetry , started on ASA, Plavix, Therapeutic Lovenox Metoprolol, nitro PRN , statin and Cardiology consulted.As per cardiology patient most likely had NSTEMI and will need to continue medical managemnet . She has guarded prognosis. She remains hemodynamically stable, afebrile, chest pain free with no wheezing and respiratory distress . Will discharge patient home on current management . 1. NSTEMI continue ASA, Plavix, statin,metoprolol Cardiology consulted: Dr Goel- recommended medical mgt Patient is DNR/DNI Will discharge patient home 2. Mild acute exacerbation of COPD/Asthma hx of of mod persistent Asthma feeling better with no SOB Duoneb via nebulizer QID Albuterol via nebulizer q 4hrs prn for wheezing/SOB T[place]red Solumedrol IV pulmonary consulted Dr Martha Hobbs qhs cont Oxygen 3liters /NC 3. CHF, chronic, diastolic dysfunction, EF 60% continue Furosemide and Metoprolol 4. RA and SLE Cont Plaquenil and Methotrexate Continue Folic Acid 5. Obesity BMI 39 Discharge Exam - Head Exam Head Exam: NORMAL INSPECTION Additional comments: obese , chronically ill - Eye Exam Eye Exam: EOMI, PERRL Pupil Exam: NORMAL ACCOMODATION - ENT Exam ENT Exam: Normal Exam - Neck Exam Neck exam: Full Rom, Normal Inspection - Respiratory Exam Respiratory Exam: Clear to PA & Lateral, NORMAL BREATHING PATTERN. absent: Rhonchi, Wheezes, Respiratory Distress - Cardiovascular Exam Cardiovascular Exam: REGULAR RHYTHM, RRR, +S1, +S2. absent: JVD - GI/Abdominal Exam GI & Abdominal Exam: Normal Bowel Sounds, Soft. absent: Distended, Guarding, Rebound, Tenderness - Rectal Exam Rectal Exam: Deferred - Extremities Exam Extremities exam: normal capillary refill, normal inspection, pedal pulses present - Back Exam Back exam: NORMAL INSPECTION - Neurological Exam Neurological exam: Alert, CN II-XII Intact, Oriented x3 - Psychiatric Exam Psychiatric exam: Normal Affect - Skin Skin Exam: Dry, Pallor, Warm Discharge Plan - Discharge Medications Prescriptions: Nitroglycerin 0.4 mg SL Q5MIN PRN #30 tab.subl PRN Reason: Pain, Severe (8-10) Aspirin 81 mg PO DAILY #30 tab.chew - Follow Up Plan Condition: GUARDED Disposition: HOME/ ROUTINE Patient education suggested?: Yes Referrals: Deniz Albright MD [Family Provider] -
[2017-07-28 12:22] VITALS: O2SAT 100
--- NOTE | 2017-07-28 14:26 | CP.PCM.PN ---
Subjective - Date & Time of Evaluation Date of Evaluation: 07/28/17 Time of Evaluation: 11:40 - Subjective Subjective: F/U COPD Bronchial Asthma exacerbation. Objective - Vital Signs/Intake and Output Vital Signs (last 24 hours): Temp Pulse Resp BP Pulse Ox 97.6 F 67 18 123/68 100 07/28/17 12:22 07/28/17 12:22 07/28/17 12:22 07/28/17 12:22 07/28/17 12:22 - Medications Medications: Current Medications Acetaminophen (Tylenol 325mg Tab) 650 mg PO Q4H PRN PRN Reason: Pain, Mild (1-3) Last Admin: 07/25/17 05:06 Dose: 650 mg Albuterol Sulfate (Albuterol 0.083% Inhal Lotus (2.5 Mg/3 Ml) Ud) 2.5 mg INH RQ6 PRN PRN Reason: Shortness of Breath Last Admin: 07/25/17 05:25 Dose: 2.5 mg Albuterol/Ipratropium (Duoneb 3 Mg/0.5 Mg (3 Ml) Ud) 3 ml INH RQID [facility] Last Admin: 07/28/17 11:17 Dose: 3 ml Alprazolam (Xanax) 0.5 mg PO HS PRN PRN Reason: Insomnia Last Admin: 07/28/17 00:10 Dose: 0.5 mg Aspirin (Aspirin) 325 mg PO DAILY [facility] Last Admin: 07/28/17 10:35 Dose: 325 mg Atorvastatin Calcium (Lipitor) 10 mg PO DAILY [facility] Last Admin: 07/28/17 10:33 Dose: 10 mg Clopidogrel Bisulfate (Plavix) 75 mg PO DAILY [facility] Last Admin: 07/28/17 10:32 Dose: 75 mg Docusate Sodium (Colace) 100 mg PO BID PRN PRN Reason: Constipation Last Admin: 07/28/17 10:30 Dose: 100 mg Escitalopram Oxalate (Lexapro) 10 mg PO DAILY [facility] Last Admin: 07/28/17 10:33 Dose: 10 mg Folic Acid (Folic Acid) 1 mg PO DAILY [facility] Last Admin: 07/28/17 10:31 Dose: 1 mg Furosemide (Lasix) 40 mg PO DAILY [facility] Last Admin: 07/28/17 10:32 Dose: 40 mg Hydroxychloroquine Sulfate (Plaquenil) 200 mg PO Q12H [facility] PRN Reason: Protocol Last Admin: 07/28/17 05:39 Dose: 200 mg Methotrexate (Methotrexate) 10 mg PO QWK [facility] Methylprednisolone (Solu-Medrol) 30 mg IVP Q8 [facility] Last Admin: 07/28/17 10:31 Dose: 30 mg Metoprolol Succinate (Toprol Xl) 25 mg PO DAILY [facility] Last Admin: 07/28/17 10:31 Dose: Not Given Nitroglycerin (Nitrostat Sl Tab) 0.4 mg SL Q5M PRN PRN Reason: chest pain Pantoprazole Sodium (Protonix Ec Tab) 40 mg PO DAILY [facility] Last Admin: 07/28/17 10:32 Dose: 40 mg - Labs Labs: 07/28/17 06:00 07/28/17 06:00 PT 13.1 Seconds (9.8-13.1) 07/28/17 06:00 INR 1.2 (0.9-1.2) 07/28/17 06:00 APTT 30.4 Seconds (25.6-37.1) 07/28/17 06:00 Assessment and Plan (1) Asthma exacerbation with COPD (chronic obstructive pulmonary disease) Status: Acute (2) OLIVIA (obstructive sleep apnea) Status: Chronic (3) CHF (congestive heart failure) Status: Chronic (4) SLE (systemic lupus erythematosus) Status: Chronic (5) Hemoptysis Status: Acute
--- NOTE | 2017-07-28 15:02 | CP.PCM.CON ---
History of Present Illness - History of Present Illness History of Present Illness: Podiatry Consult note: Dr. Edmonds 61 year old female patient with PMHx of SLE, RA, Asthma/COPD, CAD, PAH and previous CVA was seen and evaluated at bedside for right 2nd digit painful nail. Patient denies of having any traumatic event to the right foot. Reports that she saw some blood from the right toe earlier today. Denies of any other pedal complains now. Denies of having any F/N/V/C/CP. Review of Systems - Constitutional Constitutional: As Per HPI Past Patient History - Infectious Disease Hx of Infectious Diseases: None - Tetanus Immunizations Tetanus Immunization: Unknown - Past Medical History & Family History Past Medical History?: Yes - Past Social History Smoking Status: Never Smoked Alcohol: None Drugs: Denies Home Situation {Lives}: With Family - CARDIAC Hx Cardiac Disorders: Yes Hx Cardia Arrhythmia: Yes Hx Congestive Heart Failure: Yes Hx Hypercholesterolemia: Yes Hx Hypertension: Yes Hx Peripheral Edema: Yes - PULMONARY Hx Respiratory Disorders: Yes Hx Asthma: Yes Hx Chronic Obstructive Pulmonary Disease (COPD): Yes Hx Sleep Apnea: Yes - NEUROLOGICAL Hx Neurological Disorder: Yes Hx Seizures: No (denies) Hx Transient Ischemic Attacks (TIA): Yes - HEENT Hx HEENT Problems: No - RENAL Hx Chronic Kidney Disease: No - ENDOCRINE/METABOLIC Hx Endocrine Disorders: No - HEMATOLOGICAL/ONCOLOGICAL Hx Blood Disorders: Yes Hx Anemia: Yes Hx Human Immunodeficiency Virus (HIV): No - INTEGUMENTARY Hx Dermatological Problems: No - MUSCULOSKELETAL/RHEUMATOLOGICAL Hx Musculoskeletal Disorders: Yes Hx Arthritis: Yes Hx Falls: No Hx Osteoporosis: Yes Hx Rheumatoid Arthritis: Yes - GASTROINTESTINAL Hx Gastrointestinal Disorders: Yes Hx Diverticulitis: Yes Hx Gastritis: Yes - GENITOURINARY/GYNECOLOGICAL Hx Genitourinary Disorders: Yes - PSYCHIATRIC Hx Psychophysiologic Disorder: Yes Hx Anxiety: Yes Hx Depression: Yes Hx Substance Use: No - SURGICAL HISTORY Hx Surgeries: Yes Hx Appendectomy: Yes Hx Cholecystectomy: No Hx Coronary Stent: Yes (Rex perez [facility] [place]) - ANESTHESIA Hx Anesthesia: Yes Hx Anesthesia Reactions: No Hx Malignant Hyperthermia: No Meds Home Medications: Home Medication List Medication Instructions Recorded Confirmed Type Aspirin 81 mg PO DAILY #30 tab.chew 07/28/17 Rx Nitroglycerin 0.4 mg SL Q5MIN PRN #30 tab.subl 07/28/17 Rx Allergies/Adverse Reactions: Allergies Allergy/AdvReac Type Severity Reaction Status Date / Time No Known Allergies Allergy Verified 07/19/17 21:44 - Medications Medications: Current Medications Acetaminophen (Tylenol 325mg Tab) 650 mg PO Q4H PRN PRN Reason: Pain, Mild (1-3) Last Admin: 07/25/17 05:06 Dose: 650 mg Albuterol Sulfate (Albuterol 0.083% Inhal [place] (2.5 Mg/3 Ml) Ud) 2.5 mg INH RQ6 PRN PRN Reason: Shortness of Breath Last Admin: 07/25/17 05:25 Dose: 2.5 mg Albuterol/Ipratropium (Duoneb 3 Mg/0.5 Mg (3 Ml) Ud) 3 ml INH RQID [facility] Last Admin: 07/28/17 11:17 Dose: 3 ml Alprazolam (Xanax) 0.5 mg PO HS PRN PRN Reason: Insomnia Last Admin: 07/28/17 00:10 Dose: 0.5 mg Aspirin (Aspirin) 325 mg PO DAILY [facility] Last Admin: 07/28/17 10:35 Dose: 325 mg Atorvastatin Calcium (Lipitor) 10 mg PO DAILY [facility] Last Admin: 07/28/17 10:33 Dose: 10 mg Clopidogrel Bisulfate (Plavix) 75 mg PO DAILY [facility] Last Admin: 07/28/17 10:32 Dose: 75 mg Docusate Sodium (Colace) 100 mg PO BID PRN PRN Reason: Constipation Last Admin: 07/28/17 10:30 Dose: 100 mg Escitalopram Oxalate (Lexapro) 10 mg PO DAILY [facility] Last Admin: 07/28/17 10:33 Dose: 10 mg Folic Acid (Folic Acid) 1 mg PO DAILY [facility] Last Admin: 07/28/17 10:31 Dose: 1 mg Furosemide (Lasix) 40 mg PO DAILY [facility] Last Admin: 07/28/17 10:32 Dose: 40 mg Hydroxychloroquine Sulfate (Plaquenil) 200 mg PO Q12H [facility] PRN Reason: Protocol Last Admin: 07/28/17 05:39 Dose: 200 mg Methotrexate (Methotrexate) 10 mg PO QWK [facility] Methylprednisolone (Solu-Medrol) 30 mg IVP Q8 [facility] Last Admin: 07/28/17 10:31 Dose: 30 mg Metoprolol Succinate (Toprol Xl) 25 mg PO DAILY [facility] Last Admin: 07/28/17 10:31 Dose: Not Given Nitroglycerin (Nitrostat Sl Tab) 0.4 mg SL Q5M PRN PRN Reason: chest pain Pantoprazole Sodium (Protonix Ec Tab) 40 mg PO DAILY [facility] Last Admin: 07/28/17 10:32 Dose: 40 mg Physical Exam - Constitutional Appears: Well, Non-toxic, No Acute Distress - Extremities Exam Additional comments: Right LE focused exam: VASC: DP/PT pulses are palpable 2/4. Cap refill time: < 3 seconds to all digits. Skin temperature warm to cool from proximal to distal. no pitting or non -pitting edema noted DERM: Subungual bleeding noted on the right 2nd digit with small superficial break in the epidermal layer, no inter digital maceration, nails are cut to hygenic length, no clinical suspicion of active infection NEURO: Epicritic and protective sensation intact ORTHO: no pain during AROM and PROM at the AJ or MTPJ - Neurological Exam Neurological exam: Alert, Oriented x3 - Psychiatric Exam Psychiatric exam: Normal Affect, Normal Mood Results - Vital Signs Recent Vital Signs: Last Vital Signs Temp 97.6 F 07/28/17 12:22 Pulse 67 07/28/17 12:22 Resp 18 07/28/17 12:22 BP 123/68 07/28/17 12:22 Pulse Ox 100 07/28/17 12:22 - Labs Result Diagrams: 07/28/17 06:00 07/28/17 06:00 Labs: Laboratory Results - last 24 hr 07/28/17 07/28/17 07/28/17 06:00 06:00 06:00 WBC 12.0 H RBC 3.28 L Hgb 9.3 L Hct 31.0 L MCV 94.8 MCH 28.3 MCHC 29.9 L RDW 24.3 H Plt Count 130 MPV 10.4 Neut % (Auto) 90.7 H Lymph % (Auto) 2.9 L [place] % (Auto) 5.8 Eos % (Auto) 0.0 Baso % (Auto) 0.6 Neut # (Auto) 10.7 H Lymph # (Auto) 0.3 L [place] # (Auto) 0.7 Eos # (Auto) 0.0 Baso # (Auto) 0.1 Neutrophils % (Manual) 91 H Lymphocytes % (Manual) 4 L Monocytes % (Manual) 5 Platelet Estimate Normal Large Platelets Present Polychromasia Slight Hypochromasia (manual) Moderate Poikilocytosis (manual Slight Anisocytosis (manual) Moderate Macrocytosis (manual) Slight Target Cells Marked Ovalocytes Slight PT 13.1 INR 1.2 APTT 30.4 Sodium 141 Potassium 4.6 Chloride 98 Carbon Dioxide 37 H Anion Gap 11 BUN 48 H Creatinine 0.9 Est GFR ( Amer) > 60 Est GFR (Non-Af Amer) > 60 Random Glucose 154 H Calcium 8.3 L Total Bilirubin 0.8 AST 41 H ALT 69 H Alkaline Phosphatase 126 Total Protein 6.0 L Albumin 3.2 L Globulin 2.9 Albumin/Globulin Ratio 1.1 Assessment & Plan - Assessment and Plan (Free Text) Assessment: 61 year old female patient with PMHx of SLE, RA, Asthma/COPD, CAD, PAH and previous CVA was seen and evaluated at bedside for right 2nd digit painful nail. Plan: Patient seen and evaluated at bedside Discussed plan with attending Dr. Kendal Vasquez reviewed Aseptic debridement of the 2nd digit nail using clippers Cleaned site with saline, and bandaid applied Thank you for this interesting podiatry consult and allowing to take part in patient care - Date & Time Date: 07/28/17 Time: 15:06
[2017-07-28 15:33] VITALS: BP 119/69; PULSE 71; TEMP 98.4
== END 2017-07-28 18:10 | disposition home or self-care (01) | DRG 121 ==
LOC: H.ER 14:04 → H.ERHOLD 15:47 → H.TEL 21:31
DX: I21.4 Non-ST elevation (NSTEMI) myocardial infarction (principal); I50.32 Chronic diastolic (congestive) heart failure; J96.01 Acute respiratory failure with hypoxia; J44.1 Chronic obstructive pulmonary disease with (acute) exacerbation; J45.42 Moderate persistent asthma with status asthmaticus; I11.0 Hypertensive heart disease with heart failure; M32.9 Systemic lupus erythematosus, unspecified; D64.9 Anemia, unspecified; F41.9 Anxiety disorder, unspecified; E78.00 Pure hypercholesterolemia, unspecified; M81.0 Age-related osteoporosis without current pathological fracture; Z86.73 Personal history of transient ischemic attack (TIA), and cerebral infarction without residual deficits; Z95.5 Presence of coronary angioplasty implant and graft; I27.20 Pulmonary hypertension, unspecified; I25.119 Atherosclerotic heart disease of native coronary artery with unspecified angina pectoris; M06.9 Rheumatoid arthritis, unspecified; R94.31 Abnormal electrocardiogram [ECG] [EKG]; G47.33 Obstructive sleep apnea (adult) (pediatric); Z68.39 Body mass index [BMI] 39.0-39.9, adult; E66.9 Obesity, unspecified; Z66 Do not resuscitate; Z74.01 Bed confinement status; Z79.82 Long term (current) use of aspirin; Z90.49 Acquired absence of other specified parts of digestive tract; Z99.81 Dependence on supplemental oxygen

== ENCOUNTER 2017-08-18 13:06 | Inpatient (IN) | payer MEDICAID ==
[2017-08-18 13:06] VITALS: BMI 36.6
[2017-08-18] MEDS ORDERED: Morphine 4 MG/ML VIAL IVP ONE (13:46)
--- NOTE | 2017-08-18 13:47 | ED PDOC ---
HPI: Trauma/Fall - HPI Time Seen by Provider: 08/18/17 13:30 Chief Complaint (Nursing): Trauma Chief Complaint (Provider): Heart Failure History Per: Patient, Family History/Exam Limitations: no limitations Onset/Duration Of Symptoms: Mins Past Medical History Vital Signs: Last Vital Signs Temp 98.0 F 08/18/17 13:25 Pulse 61 08/18/17 13:25 Resp 20 08/18/17 13:25 BP 132/63 08/18/17 13:25 Pulse Ox 88 L 08/18/17 13:25 - Medical History PMH: Anemia, Anxiety, Arthritis, Asthma, Back Problems (chronic back pain), CAD , Cardia Arrhythmia, CHF, COPD, CVA (x3 with left weakness), Depression, Diverticulitis, Gastritis, HTN, Hypercholesterolemia, Osteoporosis, Peripheral Edema, Rheumatoid Arthritis, Sleep Apnea, TIA Denies: HIV, Chronic Kidney Disease, Seizures (denies) - Surgical History Surgical History: Appendectomy, Coronary Stent ([facility] [place] ([place]2) Denies: Cholecystectomy - Family History Family History: States: Unknown Family Hx - Immunization History Hx Influenza Vaccination: Yes - Home Medications Home Medications: Ambulatory Orders Medication Instructions Recorded Acetaminophen [Tylenol] 650 mg PO Q4H PRN 07/20/17 Albuterol/Ipratropium [Duoneb 3 3 ml NEB Q6H PRN 07/20/17 mg/0.5 mg (3 ml) UD] Aluminum Hydroxide/Magnesium H 30 ml PO PRN PRN 07/20/17 [Maalox 30 ml] Magnesium Hydroxide [Milk Of 30 ml PO PRN PRN 07/20/17 Magnesia] Alprazolam [Alprazolam ER] 0.5 mg PO HS #30 tab.er.24h 07/21/17 Folic Acid 1 mg PO DAILY #30 tab 07/21/17 Hydroxychloroquine Sulfate 200 mg PO Q12H #60 tablet 07/21/17 [Plaquenil] Loratadine [Claritin] 10 mg PO DAILY #30 tab 07/21/17 Meclizine [Antivert] 12.5 mg PO Q12H #60 tab 07/21/17 Meloxicam [Mobic] 7.5 mg PO DAILY #30 tab 07/21/17 Methotrexate Sodium [Trexall] 1 tab PO QWK #4 tablet 07/21/17 guaiFENesin/Dextromethorphan 10 ml PO Q4 PRN #1 bottle 07/21/17 [Robitussin DM] Albuterol/Ipratropium [Duoneb 3 3 ml INH RQ4 PRN neb 07/23/17 mg/0.5 mg (3 ml) UD] Atorvastatin [Lipitor] 10 mg PO DAILY #30 tab 07/23/17 Clopidogrel [Plavix] 75 mg PO DAILY #30 tab 07/23/17 Docusate [Colace] 100 mg PO DAILY #100 cap 07/23/17 Escitalopram [Lexapro] 10 mg PO DAILY #30 tab 07/23/17 Famotidine [Pepcid] 20 mg PO Q12 #60 tab 07/23/17 Furosemide [Lasix] 40 mg PO DAILY #30 tab 07/23/17 Methylprednisolone [Medrol Dose 4 mg PO ASDIR #21 mg 07/23/17 Pack (21 tabs)] Metoprolol Succinate [Toprol XL] 25 mg PO DAILY #30 tab 07/23/17 Mirtazapine [Remeron] 30 mg PO HS #30 tab 07/23/17 Nystatin [Nystatin Oral Susp] 5 ml PO QID #1 bottle 07/23/17 Polyethylene Glycol/Polyvinyl 2 drop OU Q6 PRN #1 bottle 07/23/17 [Artificial Tears] Promethazine/Codeine 10 ml PO Q8 #300 ml 07/23/17 [Phenergan/Codeine Oral Syrup] Aspirin 81 mg PO DAILY #30 tab.chew 07/28/17 Nitroglycerin 0.4 mg SL Q5MIN PRN #30 tab.subl 07/28/17 - Allergies Allergies/Adverse Reactions: Allergies Allergy/AdvReac Type Severity Reaction Status Date / Time No Known Allergies Allergy Verified 08/18/17 13:25 - Laboratory Results Result Diagrams: 08/18/17 14:06 08/18/17 14:06 - ECG O2 Sat by Pulse Oximetry: 88 Disposition - Clinical Impression Clinical Impression: CHF (congestive heart failure), Traumatic injury of head - Patient ED Disposition Is Patient to be Admitted: Yes Discussed With : Sai Thomas (admit tellillie) Doctor Will See Patient In The: Hospital Counseled Patient/Family Regarding: Studies Performed, Diagnosis, Need For Followup - Disposition Disposition Time: 16:52 Condition: STABLE Forms: [employer] ([place])
[2017-08-18 14:18] LABS: BASO # 0.1 K/uL (0.0-0.2); BASO % 0.9 % (0.0-2.0); EOS # 0.1 K/uL (0.0-0.7); EOS % 1.9 % (0.0-4.0); LYMPH # 1.8 K/uL (1.0-4.3); LYMPH % 29.4 % (20.0-40.0); MEAN CELL VOLUME 99.5 fl (81.0-99.0); MEAN CORPUSCULAR HGB CONC 30.1 g/dL (33.0-37.0); MEAN PLATELET VOLUME 9.6 fl (7.2-11.7); MONO # 1.1 K/uL (0.0-0.8); MONO % 17.4 % (0.0-10.0); NEUT # 3.1 K/uL (1.8-7.0); NEUT % 50.4 % (50.0-75.0); NRBC % 11.1 % (0.0-0.0); RED CELL DISTRIBUTION WIDTH 26.7 % (11.5-14.5); WHITE BLOOD COUNT 6.1 K/uL (4.8-10.8)
[2017-08-18 14:41] LABS: INR 1.1 (0.9-1.2); PARTIAL THROMBOPLASTIN TIME 25.5 Seconds (25.6-37.1); PROTHROMBIN TIME 12.5 Seconds (9.8-13.1)
[2017-08-18 14:45] LABS: ALB/GLOB RATIO 1.1 (1.0-2.1); ALBUMIN 3.7 g/dL (3.5-5.0)
[2017-08-18 14:50] LABS: TROPONIN I 0.083 ng/mL (0.00-0.120)
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
[2017-08-18 20:21] LABS: SQUAMOUS EPITHIAL 1 /hpf (0-5); URINE BILIRUBIN NEGATIVE (NEGATIVE); URINE BLOOD NEGATIVE (NEGATIVE); URINE CLARITY SLIGHTY-CLOUDY (Clear); URINE COLOR YELLOW (YELLOW); URINE GLUCOSE (UA) NEG (Normal); URINE LEUKOCYTE ESTERASE TRACE Leu/uL (Negative); URINE PROTEIN 30 mg/dL (NEGATIVE); URINE UROBILINOGEN 0.2-1.0 mg/dL (0.2-1.0)
[2017-08-18] MEDS ORDERED: Artificial Tears Opht Soln OU PRN (21:27)
[2017-08-18] MEDS ORDERED: guaiFENesin DM 200 mg-20 mg/10 ml UD PO PRN (21:27)
[2017-08-18] MEDS ORDERED: ROPINIROLE HCL 1 MG PO SCH (22:00)
[2017-08-19 07:00] LABS: HEMOGLOBIN 8.6 g/dL (12.0-16.0); MEAN CORPUSCULAR HEMOGLOBIN 29.9 pg (27.0-31.0); MEAN CORPUSCULAR HGB CONC 30.1 g/dL (33.0-37.0); RBC 2.88 Mil/uL (3.80-5.20); RED CELL DISTRIBUTION WIDTH 26.2 % (11.5-14.5); WHITE BLOOD COUNT 5.3 K/uL (4.8-10.8)
[2017-08-19 07:19] LABS: ALBUMIN 3.2 g/dL (3.5-5.0); CALCIUM 8.8 mg/dL (8.4-10.2); T4 6.61 ug/dl (5.5-11.0)
[2017-08-19] MEDS: Metoprolol Succinate 25 mg XL Tab PO SCH (08:18)
[2017-08-19] MEDS ORDERED: Patient's Own Med (Meloxicam [Mobic] 7.5 MG) PO SCH (09:00)
--- NOTE | 2017-08-19 14:23 | US ---
PROCEDURE: Duplex ultrasound of the carotid and vertebral arteries. HISTORY: CHF COMPARISON: None available. TECHNIQUE: Grayscale and duplex Doppler evaluation of the cervical carotid and vertebral arteries were performed. The common carotid, carotid bifurcations and cervical ICA and proximal ECA were evaluated. The vertebral arteries were evaluated for gross patency and direction. FINDINGS: RIGHT CAROTID ARTERIES: Common Carotid Artery: Normal flow. Maximal flow velocity of 206.0 cm/s. Tortuous artery. Carotid Bifurcation: Normal. Internal Carotid Artery:Normal. Maximal flow velocity of 127.6 cm/s. External Carotid Artery (proximal branches): Normal. Maximal flow velocity of 99.7 cm/s. ICA/CCA Ratio: 0.6 LEFT CAROTID ARTERIES: Common Carotid Artery: Normal. Maximal flow velocity of 111.3 cm/s. Carotid Bifurcation: Normal. Internal Carotid Artery:Normal. Maximal flow velocity of 129.9 cm/s. External Carotid Artery (proximal branches): Normal. Maximal flow velocity of 68.1 cm/s. ICA/CCA Ratio: 1.3 VERTEBRAL ARTERIES: Right Vertebral Artery: Patent. Antegrade flow. Left Vertebral Artery: Patent. Antegrade flow. OTHER FINDINGS: None. IMPRESSION: 1. Mild increased peak systolic velocity in both internal carotid arteries corresponding to less than 50% stenosis. 2. Markedly elevated peak systolic velocity in the right common carotid artery which is also very tortuous, findings could be related to proximal stenosis or could be artifactual related to increased tortuosity. If clinically indicated, correlation with MRA neck may be performed.
--- NOTE | 2017-08-19 14:58 | CARD ---
APPROVED REPORT EKG Measurement Heart [id number] FL 134P [id number] <Conclusion> Sinus bradycardia Nonspecific T wave abnormality Abnormal ECG
--- NOTE | 2017-08-19 17:08 | CP.PCM.HP ---
History of Present Illness - History of Present Illness History of Present Illness: CC: Fall/Trauma. 61 y/o F, with multiple chronic medical condition, Hx of CVA x 3, chronic CHF, CAD with coronary stent, Pulmonay HTN, COPD, OLIVIA, SLE, R/A, brought to [facility], [place] on 08/18/17, to be evaluated for head pain, aching type, constant, moderate intensity 6:10, onset one hour PATHOLOGY TECH, symptom associated to fall, as per daughter, Pt fell back while in her wheelchair hitting her head on the concrete and also having abrasion to b/l posterior elbows. Worsening factor: Hx Fall, Weakness, dizziness, c/o of unable to sleep due to dry intermittent cough and SOB. Aggravated factor: Movements, exercise. Pt denied: Fever, chills, LOC, numbness, syncope, CP, palpitations, n/v/d, abdominal pain, urinary symptoms, sick contact, recent travel out of [facility]. EKG shows: Sinus Bradycardia. Head CT: No intracranial abnormality. Pro BNP 3970, today Hgb 8.6 Present on Admission - Present on Admission Any Indicators Present on Admission: No Review of Systems - Constitutional Constitutional: Frequent Falls, Headache, Lethargy, Sleep Apnea, Weakness - EENT Eyes: Other (negative) Ears: Other (negative) - Cardiovascular Cardiovascular: Dyspnea, Dyspnea on Exertion, Slow Heart Rate - Respiratory Respiratory: Cough, Dyspnea - Gastrointestinal Gastrointestinal: Other (negative) - Genitourinary Genitourinary: Other (negative) - Musculoskeletal Musculoskeletal: Arthralgias, Back Pain (chronic) - Integumentary Integumentary: Other (abrasion to elbows 2nd to fall) - Neurological Neurological: Dizziness, Headaches, Weakness - Psychiatric Psychiatric: Anxiety, Depression - Endocrine Endocrine: Other (negative) - Hematologic/Lymphatic Hematologic: Other (anemia) Past Patient History - Infectious Disease Hx of Infectious Diseases: None - Tetanus Immunizations Tetanus Immunization: Unknown - Past Medical History & Family History Past Medical History?: Yes Pertinent Family History: Mother: DM, HTN, CABG. Father: DM, HTN, CVA - Past Social History Smoking Status: Never Smoked Alcohol: None Drugs: Denies Home Situation {Lives}: Alone - CARDIAC Hx Cardiac Disorders: Yes Hx Cardia Arrhythmia: Yes Hx Congestive Heart Failure: Yes Hx Hypercholesterolemia: Yes Hx Hypertension: Yes Hx Peripheral Edema: Yes - PULMONARY Hx Respiratory Disorders: Yes Hx Asthma: Yes Hx Chronic Obstructive Pulmonary Disease (COPD): Yes Hx Sleep Apnea: Yes - NEUROLOGICAL Hx Neurological Disorder: Yes Hx Seizures: No (denies) Hx Transient Ischemic Attacks (TIA): Yes - HEENT Hx HEENT Problems: No - RENAL Hx Chronic Kidney Disease: No - ENDOCRINE/METABOLIC Hx Endocrine Disorders: No - HEMATOLOGICAL/ONCOLOGICAL Hx Blood Disorders: Yes Hx AIDS: No Hx Anemia: Yes Hx Human Immunodeficiency Virus (HIV): No - INTEGUMENTARY Hx Dermatological Problems: No - MUSCULOSKELETAL/RHEUMATOLOGICAL Hx Musculoskeletal Disorders: Yes Hx Arthritis: Yes Hx Falls: Yes Hx Osteoporosis: Yes Hx Rheumatoid Arthritis: Yes Other/Comment: Restless Leg Syndrome - GASTROINTESTINAL Hx Gastrointestinal Disorders: Yes Hx Diverticulitis: Yes Hx Gastritis: Yes - GENITOURINARY/GYNECOLOGICAL Hx Genitourinary Disorders: Yes - PSYCHIATRIC Hx Psychophysiologic Disorder: Yes Hx Anxiety: Yes Hx Depression: Yes Hx Substance Use: No - SURGICAL HISTORY Hx Surgeries: Yes Hx Appendectomy: Yes Hx Cholecystectomy: No Hx Coronary Stent: Yes ([facility] [place]) - ANESTHESIA Hx Anesthesia: Yes Hx Anesthesia Reactions: No Hx Malignant Hyperthermia: No Meds Allergies/Adverse Reactions: Allergies Allergy/AdvReac Type Severity Reaction Status Date / Time No Known Allergies Allergy Verified 08/18/17 13:25 Physical Exam - Constitutional Appears: Chronically Ill - Head Exam Additional comments: mild occipital tenderness - Eye Exam Eye Exam: PERRL - ENT Exam ENT Exam: Mucous Membranes Moist - Neck Exam Neck exam: Positive for: Normal Inspection - Respiratory Exam Respiratory Exam: Decreased Breath Sounds (at bases) - Cardiovascular Exam Cardiovascular Exam: REGULAR RHYTHM - GI/Abdominal Exam GI & Abdominal Exam: Normal Bowel Sounds, Soft - Extremities Exam Additional comments: Abrasion on elbows. - Back Exam Back exam: NORMAL INSPECTION - Neurological Exam Neurological exam: Alert, CN II-XII Intact, Oriented x3 - Psychiatric Exam Psychiatric exam: Anxious, Depressed - Skin Skin Exam: Warm Results - Vital Signs Recent Vital Signs: Last Vital Signs Temp 98.2 F 08/19/17 15:58 Pulse 58 L 08/19/17 15:58 Resp 20 08/19/17 15:58 BP 113/70 08/19/17 15:58 Pulse Ox 98 08/19/17 15:58 reviewed J.P. - Labs Result Diagrams: 08/19/17 05:18 08/19/17 05:18 Labs: Laboratory Results - last 24 hr 08/18/17 08/19/17 08/19/17 20:06 05:18 05:18 WBC 5.3 RBC 2.88 L Hgb 8.6 L Hct 28.5 L MCV 99.0 MCH 29.9 MCHC 30.1 L RDW 26.2 H Plt Count 151 Sodium 144 Potassium 4.4 Chloride 107 Carbon Dioxide 26 Anion Gap 15 BUN 22 H Creatinine 1.3 H Est GFR ( Amer) 50 Est GFR (Non-Af Amer) 41 Random Glucose 64 L Calcium 8.8 Total Bilirubin 0.6 AST 32 ALT 38 Alkaline Phosphatase 103 Total Protein 6.4 Albumin 3.2 L Globulin 3.1 Albumin/Globulin Ratio 1.0 Triglycerides 119 D Cholesterol 123 LDL Cholesterol Direct 52 HDL Cholesterol 35 Thyroxine (T4) 6.61 TSH 3rd Generation 2.77 Urine Color Yellow Urine Clarity Slighty-cloudy Urine pH 6.0 Ur Specific [place] 1.017 Urine Protein 30 Urine Glucose (UA) Neg Urine Ketones Negative Urine Blood Negative Urine Nitrate Negative Urine Bilirubin Negative Urine Urobilinogen 0.2-1.0 Ur Leukocyte Esterase Trace Urine RBC (Auto) 4 H Urine Microscopic WBC 2 Ur Squamous Epith Cells 1 Hyaline Casts 3-5 H reviewed J.P. - EKG Data EKG comments: reviewed J.P. - Imaging and Cardiology CT scan - head Status: Report reviewed by me (Antonio) Additional comment: Carotid Artery U-S Reviewed. Assessment & Plan (1) Traumatic injury of head Status: Acute Priority: High (2) Headache Status: Acute Priority: High (3) CHF (congestive heart failure) Status: Chronic Priority: High (4) Anemia Status: Chronic Priority: High (5) COPD (chronic obstructive pulmonary disease) Status: Chronic Priority: High (6) OLIVIA (obstructive sleep apnea) Status: Chronic Priority: High (7) Weakness generalized Status: Chronic Priority: High (8) Rheumatoid arthritis Status: Chronic Priority: High (9) SLE (systemic lupus erythematosus) Status: Chronic Priority: High (10) Angina pectoris Status: Chronic Priority: High (11) Hypertension Status: Chronic Priority: Medium - Assessment and Plan (Free Text) Plan: Continue O2 NC 3 L/M, F/U Echo, CT Chest, U C-S, continue ASA, Lasix, Toprol, Lipitor, Plavix, Pepcid, Robitussin DM, Claritin and rest Of Tx, PT and OT eval , Cardiology consult. - Date & Time Date: 08/19/17 Time: 12:40
[2017-08-20] MEDS: Metoprolol Succinate 25 mg XL Tab PO SCH (08:27)
--- NOTE | 2017-08-20 09:53 | CT ---
PROCEDURE: CT Chest without contrast HISTORY: CHF, COPD COMPARISON: 07/20/2017 and 03/10/2015. TECHNIQUE: Contiguous axial images were obtained through the chest without intravenous contrast enhancement. Sagittal and coronal reconstructions were performed. Radiation dose (DLP): 500.59 mGy-cm. This CT exam was performed using one or more of the following dose reduction techniques: Automated exposure control, adjustment of the mA and/or kV according to patient size, and/or use of iterative reconstruction technique. FINDINGS: LUNGS: The lungs are well inflated. There is right posterior apical pleural thickening. There is a stable 6 mm subpleural nodule in the lingula (series 3, image 68), likely postinflammatory. There is subsegmental atelectasis in the left lung base. No focal consolidation. There are no endobronchial lesions. MEDIASTINUM: Unremarkable thoracic aorta. No aneurysm. Mild cardiomegaly. Main pulmonary artery unremarkable. No vascular congestion. No lymphadenopathy. PLEURA: No pleural fluid. No pneumothorax. BONES: Age indeterminate but likely chronic compression fracture deformities in the lower thoracic and upper lumbar spine with angular kyphosis. UPPER ABDOMEN: There is nonspecific coarse calcification in the hepatic dome. Both adrenal glands are normal. OTHER FINDINGS: None. IMPRESSION: No active pulmonary disease. Mild cardiomegaly.
--- NOTE | 2017-08-20 16:01 | CP.PCM.PN ---
Subjective - Date & Time of Evaluation Date of Evaluation: 08/20/17 Time of Evaluation: 13:30 - Subjective Subjective: F/U Fall/trauma Awake, mild pain occipital area, no SOB at rest with O2 , Objective - Vital Signs/Intake and Output Vital Signs (last 24 hours): Temp Pulse Resp BP Pulse Ox 97.7 F 60 20 111/70 98 08/20/17 15:50 08/20/17 15:50 08/20/17 15:50 08/20/17 15:50 08/20/17 15:50 - Medications Medications: Current Medications Alprazolam (Xanax) 0.25 mg PO [facility] Stop: 08/25/17 23:16 Last Admin: 08/19/17 21:24 Dose: 0.25 mg Artificial Tears (Artificial Tears) 2 drop OU Q6 PRN PRN Reason: Dry eyes Last Admin: 08/19/17 21:19 Dose: 2 drop Aspirin (Aspirin Chewable) 81 mg PO DAILY [facility] Last Admin: 08/20/17 08:26 Dose: 81 mg Atorvastatin Calcium (Lipitor) 10 mg PO [facility] Last Admin: 08/19/17 21:19 Dose: 10 mg Clopidogrel Bisulfate (Plavix) 75 mg PO DAILY [facility] Last Admin: 08/20/17 08:26 Dose: 75 mg Escitalopram Oxalate (Lexapro) 10 mg PO DAILY [facility] Last Admin: 08/20/17 08:26 Dose: 10 mg Famotidine (Pepcid) 20 mg PO Q12 [facility] Last Admin: 08/20/17 08:26 Dose: 20 mg Folic Acid (Folic Acid) 1 mg PO DAILY [facility] Last Admin: 08/20/17 08:27 Dose: 1 mg Furosemide (Lasix) 40 mg IVP DAILY [facility] Last Admin: 08/20/17 08:26 Dose: 40 mg Guaifenesin/Dextromethorphan (Robitussin Dm) 10 ml PO Q4 PRN PRN Reason: Cough Last Admin: 08/18/17 22:54 Dose: 10 ml Home Med (Ropinirole Hcl [Ropinirole Hcl]) 1 mg PO [facility] Hydroxychloroquine Sulfate (Plaquenil) 200 mg PO Q12H [facility] PRN Reason: Protocol Last Admin: 08/20/17 08:30 Dose: 200 mg Loratadine (Claritin) 10 mg PO DAILY [facility] Last Admin: 08/20/17 08:28 Dose: 10 mg Metoprolol Succinate (Toprol Xl) 25 mg PO DAILY [facility] Last Admin: 08/20/17 08:27 Dose: 25 mg Mirtazapine (Remeron) 30 mg PO HS [facility] Last Admin: 08/18/17 22:54 Dose: 30 mg Nitroglycerin (Nitrostat Sl Tab) 0.4 mg SL Q5MIN PRN PRN Reason: Pain, severe (8-10) - Labs Labs: 08/19/17 05:18 08/19/17 05:18 PT 12.5 Seconds (9.8-13.1) 08/18/17 14:06 INR 1.1 (0.9-1.2) 08/18/17 14:06 APTT 25.5 Seconds (25.6-37.1) L 08/18/17 14:06 - Constitutional Appears: No Acute Distress - Head Exam Additional comments: mild occipital tenderness - Eye Exam Eye Exam: PERRL - ENT Exam ENT Exam: Normal Exam - Neck Exam Neck Exam: Normal Inspection - Respiratory Exam Respiratory Exam: Decreased Breath Sounds (at bases, scattered ronchi ), Rhonchi (scattered) - Cardiovascular Exam Cardiovascular Exam: REGULAR RHYTHM - GI/Abdominal Exam GI & Abdominal Exam: Soft, Normal Bowel Sounds - Extremities Exam Additional comments: abrasions on elbows - Back Exam Back Exam: tenderness Additional comments: tendrness L-S - Neurological Exam Neurological Exam: Alert, Oriented x3 Additional comments: no focal motor/sensory deficit - Psychiatric Exam Psychiatric exam: Anxious, Depressed - Skin Skin Exam: Warm Assessment and Plan (1) Traumatic injury of head Status: Acute (2) Headache Status: Acute (3) CHF (congestive heart failure) Status: Chronic (4) Anemia Status: Chronic (5) COPD (chronic obstructive pulmonary disease) Status: Chronic (6) OLIVIA (obstructive sleep apnea) Status: Chronic (7) Weakness generalized Status: Chronic (8) Rheumatoid arthritis Status: Chronic (9) SLE (systemic lupus erythematosus) Status: Chronic (10) Angina pectoris Status: Chronic (11) Hypertension Status: Chronic (12) Anemia Status: Chronic - Assessment and Plan (Free Text) Plan: CT Chest chronic lung changes , no active pulmonary diseases continue current treatment , Cardiology consult, f/u Hgb , PT
--- NOTE | 2017-08-20 17:35 | CP.PCM.CON ---
History of Present Illness - History of Present Illness History of Present Illness: Consultation for evaluation of CHF HPI: Review of Systems - Review of Systems Systems not reviewed;Unavailable: Acuity of Condition - Constitutional Constitutional: As Per HPI - EENT Eyes: As Per HPI Ears: As Per HPI Nose/Mouth/Throat: As Per HPI - Breasts Breasts: As Per HPI - Cardiovascular Cardiovascular: As Per HPI - Respiratory Respiratory: As Per HPI - Gastrointestinal Gastrointestinal: As Per HPI - Genitourinary Genitourinary: As Per HPI - Reproductive: Female Reproductive:Female: As Per HPI - Menstruation Menstruation: As Per HPI - Musculoskeletal Musculoskeletal: As Per HPI - Integumentary Integumentary: As Per HPI - Neurological Neurological: As Per HPI - Psychiatric Psychiatric: As Per HPI - Endocrine Endocrine: As Per HPI - Hematologic/Lymphatic Hematologic: As Per HPI Past Patient History - Infectious Disease Hx of Infectious Diseases: None - Tetanus Immunizations Tetanus Immunization: Unknown - Past Medical History & Family History Past Medical History?: Yes - Past Social History Smoking Status: Never Smoked Alcohol: None Drugs: Denies Home Situation {Lives}: Alone - CARDIAC Hx Cardiac Disorders: Yes Hx Cardia Arrhythmia: Yes Hx Congestive Heart Failure: Yes Hx Hypercholesterolemia: Yes Hx Hypertension: Yes Hx Peripheral Edema: Yes - PULMONARY Hx Respiratory Disorders: Yes Hx Asthma: Yes Hx Chronic Obstructive Pulmonary Disease (COPD): Yes Hx Sleep Apnea: Yes - NEUROLOGICAL Hx Neurological Disorder: Yes Hx Seizures: No (denies) Hx Transient Ischemic Attacks (TIA): Yes - HEENT Hx HEENT Problems: No - RENAL Hx Chronic Kidney Disease: No - ENDOCRINE/METABOLIC Hx Endocrine Disorders: No - HEMATOLOGICAL/ONCOLOGICAL Hx Blood Disorders: Yes Hx AIDS: No Hx Anemia: Yes Hx Human Immunodeficiency Virus (HIV): No - INTEGUMENTARY Hx Dermatological Problems: No - MUSCULOSKELETAL/RHEUMATOLOGICAL Hx Musculoskeletal Disorders: Yes Hx Arthritis: Yes Hx Falls: Yes Hx Osteoporosis: Yes Hx Rheumatoid Arthritis: Yes Other/Comment: Restless Leg Syndrome - GASTROINTESTINAL Hx Gastrointestinal Disorders: Yes Hx Diverticulitis: Yes Hx Gastritis: Yes - GENITOURINARY/GYNECOLOGICAL Hx Genitourinary Disorders: Yes - PSYCHIATRIC Hx Psychophysiologic Disorder: Yes Hx Anxiety: Yes Hx Depression: Yes Hx Substance Use: No - SURGICAL HISTORY Hx Surgeries: Yes Hx Appendectomy: Yes Hx Cholecystectomy: No Hx Coronary Stent: Yes ([facility] [place]) - ANESTHESIA Hx Anesthesia: Yes Hx Anesthesia Reactions: No Hx Malignant Hyperthermia: No Meds Allergies/Adverse Reactions: Allergies Allergy/AdvReac Type Severity Reaction Status Date / Time No Known Allergies Allergy Verified 08/18/17 13:25 - Medications Medications: Current Medications Alprazolam (Xanax) 0.25 mg PO [facility] Stop: 08/25/17 23:16 Last Admin: 08/19/17 21:24 Dose: 0.25 mg Artificial Tears (Artificial Tears) 2 drop OU Q6 PRN PRN Reason: Dry eyes Last Admin: 08/19/17 21:19 Dose: 2 drop Aspirin (Aspirin Chewable) 81 mg PO DAILY [facility] Last Admin: 08/20/17 08:26 Dose: 81 mg Atorvastatin Calcium (Lipitor) 10 mg PO HS [facility] Last Admin: 08/19/17 21:19 Dose: 10 mg Clopidogrel Bisulfate (Plavix) 75 mg PO DAILY [facility] Last Admin: 08/20/17 08:26 Dose: 75 mg Escitalopram Oxalate (Lexapro) 10 mg PO DAILY [facility] Last Admin: 08/20/17 08:26 Dose: 10 mg Famotidine (Pepcid) 20 mg PO Q12 [facility] Last Admin: 08/20/17 08:26 Dose: 20 mg Folic Acid (Folic Acid) 1 mg PO DAILY [facility] Last Admin: 08/20/17 08:27 Dose: 1 mg Furosemide (Lasix) 40 mg IVP DAILY [facility] Last Admin: 08/20/17 08:26 Dose: 40 mg Guaifenesin/Dextromethorphan (Robitussin Dm) 10 ml PO Q4 PRN PRN Reason: Cough Last Admin: 08/18/17 22:54 Dose: 10 ml Home Med (Ropinirole Hcl [Ropinirole Hcl]) 1 mg [address] [facility] Hydroxychloroquine Sulfate (Plaquenil) 200 mg PO Q12H [facility] PRN Reason: Protocol Last Admin: 08/20/17 08:30 Dose: 200 mg Loratadine (Claritin) 10 mg PO DAILY [facility] Last Admin: 08/20/17 08:28 Dose: 10 mg Metoprolol Succinate (Toprol Xl) 25 mg PO DAILY [facility] Last Admin: 08/20/17 08:27 Dose: 25 mg Mirtazapine (Remeron) 30 mg PO [facility] Last Admin: 08/18/17 22:54 Dose: 30 mg Nitroglycerin (Nitrostat Sl Tab) 0.4 mg SL Q5MIN PRN PRN Reason: Pain, severe (8-10) Physical Exam - Constitutional Appears: Well - Head Exam Head Exam: ATRAUMATIC, NORMAL INSPECTION, NORMOCEPHALIC - Eye Exam Eye Exam: EOMI, Normal appearance, PERRL Pupil Exam: NORMAL ACCOMODATION, PERRL - ENT Exam ENT Exam: Mucous Membranes Moist, Normal Exam - Neck Exam Neck exam: Positive for: Normal Inspection - Respiratory Exam Respiratory Exam: Clear to Auscultation Bilateral, NORMAL BREATHING PATTERN - Cardiovascular Exam Cardiovascular Exam: REGULAR RHYTHM, Systolic Murmur - GI/Abdominal Exam GI & Abdominal Exam: Normal Bowel Sounds, Soft. absent: Tenderness - Extremities Exam Extremities exam: Positive for: normal inspection - Back Exam Back exam: NORMAL INSPECTION - Neurological Exam Neurological exam: Alert, CN II-XII Intact, Normal Gait, Oriented x3, Reflexes Normal - Psychiatric Exam Psychiatric exam: Normal Affect, Normal Mood - Skin Skin Exam: Dry, Intact, Normal Color, Warm Results - Vital Signs Recent Vital Signs: Last Vital Signs Temp 97.7 F 08/20/17 15:50 Pulse 60 08/20/17 15:50 Resp 20 08/20/17 15:50 BP 111/70 08/20/17 15:50 Pulse Ox 98 08/20/17 15:50 - Labs Result Diagrams: 08/19/17 05:18 08/19/17 05:18 Assessment & Plan (1) CHF (congestive heart failure) Status: Chronic Priority: High (2) Dyspnea Status: Acute (3) CAD (coronary artery disease) Status: Chronic (4) COPD (chronic obstructive pulmonary disease) Status: Chronic Priority: High (5) Dyslipidemia Status: Chronic (6) Hypertension Status: Chronic Priority: Medium (7) OLIVIA (obstructive sleep apnea) Status: Chronic Priority: High
[2017-08-21 00:19] VITALS: RESP 18
[2017-08-21 05:39] LABS: BASO # 0.1 K/uL (0.0-0.2); BASO % 1.2 % (0.0-2.0); EOS # 0.1 K/uL (0.0-0.7); EOS % 1.8 % (0.0-4.0); HEMOGLOBIN 8.4 g/dL (12.0-16.0); LYMPH % 28.7 % (20.0-40.0); MEAN CELL VOLUME 98.6 fl (81.0-99.0); MEAN CORPUSCULAR HEMOGLOBIN 29.3 pg (27.0-31.0); MEAN CORPUSCULAR HGB CONC 29.8 g/dL (33.0-37.0); MEAN PLATELET VOLUME 9.2 fl (7.2-11.7); MONO # 1.5 K/uL (0.0-0.8); MONO % 21.8 % (0.0-10.0); NEUT # 3.2 K/uL (1.8-7.0); NEUT % 46.5 % (50.0-75.0); NRBC % 5.4 % (0.0-0.0); PLATELET COUNT 145 K/uL (130-400); RBC 2.86 Mil/uL (3.80-5.20); WHITE BLOOD COUNT 6.9 K/uL (4.8-10.8)
[2017-08-21 05:56] LABS: IRON 21 ug/dL (37-170)
[2017-08-21 06:05] LABS: % IRON SATURATION 5 % (20-55); TOTAL IRON BINDING CAPACITY 399 ug/dL (250-450)
[2017-08-21 06:22] LABS: FERRITIN 88.7 ng/Ml (11.1-264.0)
[2017-08-21] MEDS: Albuterol-Ipratrop 3 mg / 0.5 (3 ml) UD INH SCH ×2 (07:17→13:31)
[2017-08-21] MEDS: Metoprolol Succinate 25 mg XL Tab PO SCH (08:51)
--- NOTE | 2017-08-21 10:30 | PQF GENQUE ---
This form is a permanent part of the medical record 08/21/17 Dr. Thomas, Please specify the type and acuity of heart failure in your progress notes: Patient fell back while in her wheelchair and hit her head on the concrete. Pro BNP 3970. CT Chest no active pulmonary disease. Treated with IV Lasix. ECHO from May 2017: EF 60-65%, MR and TR moderate to severe, severe pulmonary HTN Clarification of your documentation is requested to better reflect the severity of illness and intensity of treatment of your patient. Indicators present PHYSICIAN'S RESPONSE Please specify the type and acuity of heart failure in your progress notes: 1. TYPE: Combined systolic and diastolic Heart failure with reduced ejection fraction and diastolic dysfunction Diastolic HFpEF Systolic HFrEF Left heart failure Right heart failure Right heart failure due to left heart failure High Output failure End stage heart failure Other (please specify) Clinically unable to determine Unknown 2. ACUITY: Acute Chronic Acute on chronic Other (please specify) Clinically unable to determine Unknown Based on your medical judgment of the clinical indicators outlined above please clarify the following: [] Practitioner response [] If unable to determine, please check the box, sign and date. Present On Admission (POA) Indicator: [] Present at the time of admission [] Not present at the time of admission [] Clinically Undetermined In responding to this query, please exercise your independent professional judgment. The fact that a question is asked does not imply that any particular answer is desired or expected. Thank you for your clarification on this documentation. If you have any questions please call:ext [phone] * Thank you, Renee Lucas RN CDMP MTDD
--- NOTE | 2017-08-21 10:41 | PQF GENQUE ---
This form is a permanent part of the medical record 08/21/17 Dr. Thomas, Please clarify the Type of Anemia if known. Documentation of Anemia and medication includes Folic Acid. H&H 12/22.9--> 8.4/28.2 ( 12-16)/ ( 34-47) MCV 99.5--> 98.6 ( 81-99 ) MCH 30--> 29.3 ( 27-31 ) Retic count 3.9 ( 0.5-- 1.5 ) Iron 21 ( 37-170 ) TIBC 399 ( 250- 450 ) % Saturation 5 ( 20-55 ) Ferritin 88.7 ( 11-264 ) Clarification of your documentation is requested to better reflect the severity of illness and intensity of treatment of your patient. Indicators present PHYSICIAN'S RESPONSE Please clarify the type of anemia: Blood loss anemia, acute Blood loss anemia, chronic Chronic anemia Deficiency anemia (please specify type) Due to/in/with antineoplastic chemotherapy Due to/in/with chronic kidney disease Due to/in/with kidney failure Due to/in/with neoplastic disease Iron deficiency anemia Macrocytic anemia Microcytic anemia Normocytic anemia Postoperative blood loss anemia Pernicious anemia Other anemia (please specify) Clinically unable to determine Unknown Based on your medical judgment of the clinical indicators outlined above please clarify the following: [] Practitioner response [] If unable to determine, please check the box, sign and date. Present On Admission (POA) Indicator: [] Present at the time of admission [] Not present at the time of admission [] Clinically Undetermined In responding to this query, please exercise your independent professional judgment. The fact that a question is asked does not imply that any particular answer is desired or expected. Thank you for your clarification on this documentation. If you have any questions please call:ext [phone] * Thank you, Renee Lucas RN CDMP MTDD
[2017-08-21 12:23] VITALS: O2SAT 100
[2017-08-21 12:31] LABS: ANISOCYTOSIS MARKED; LYMPHOCYTE 31 % (20-50); MONOCYTE 21 % (0-10); NEUTROPHIL 48 % (42-75); NUCLEATED RED BLOOD CELL 7 % (0-0); PLATELET ESTIMATE NORMAL (NORMAL); TOTAL CELLS COUNTED 100
[2017-08-21 12:32] LABS: HYPOCHROMIC MODERATE; SCHISTOCYTES SLIGHT
[2017-08-21 15:51] VITALS: BP 102/58; PULSE 55; TEMP 99.4
--- NOTE | 2017-08-21 16:32 | CP.PCM.DIS ---
Provider - Provider Date of Admission: 08/18/17 17:22 Attending physician: Sai Thomas MD Diagnosis - Discharge Diagnosis (1) Traumatic injury of head Status: Acute Priority: High (2) Headache Status: Acute Priority: High (3) CHF (congestive heart failure) Status: Chronic Priority: High (4) Anemia Status: Chronic Priority: High (5) COPD (chronic obstructive pulmonary disease) Status: Chronic Priority: High (6) OLIVIA (obstructive sleep apnea) Status: Chronic Priority: High (7) Weakness generalized Status: Chronic Priority: High (8) Rheumatoid arthritis Status: Chronic Priority: High (9) SLE (systemic lupus erythematosus) Status: Chronic Priority: High (10) Angina pectoris Status: Chronic Priority: High (11) Hypertension Status: Chronic Priority: Medium (12) Anemia Status: Chronic Hospital Course - Lab Results Lab Results: Micro Results 08/18/17 20:06 Urine Urine Culture - Final No Growth (<1,000 CFU/ML) Most Recent Lab Values WBC 6.9 K/uL (4.8-10.8) 08/21/17 04:20 RBC 2.86 Mil/uL (3.80-5.20) L 08/21/17 04:20 Hgb 8.4 g/dL (12.0-16.0) L 08/21/17 04:20 Hct 28.2 % (34.0-47.0) L 08/21/17 04:20 MCV 98.6 fl (81.0-99.0) 08/21/17 04:20 MCH 29.3 pg (27.0-31.0) 08/21/17 04:20 MCHC 29.8 g/dL (33.0-37.0) L 08/21/17 04:20 RDW 26.0 % (11.5-14.5) H 08/21/17 04:20 Plt Count 145 K/uL (130-400) 08/21/17 04:20 MPV 9.2 fl (7.2-11.7) 08/21/17 04:20 Neut % (Auto) 46.5 % (50.0-75.0) L 08/21/17 04:20 Lymph % (Auto) 28.7 % (20.0-40.0) 08/21/17 04:20 [place] % (Auto) 21.8 % (0.0-10.0) H 08/21/17 04:20 Eos % (Auto) 1.8 % (0.0-4.0) 08/21/17 04:20 Baso % (Auto) 1.2 % (0.0-2.0) 08/21/17 04:20 Neut # (Auto) 3.2 K/uL (1.8-7.0) 08/21/17 04:20 Lymph # (Auto) 2.0 K/uL (1.0-4.3) 08/21/17 04:20 [place] # (Auto) 1.5 K/uL (0.0-0.8) H 08/21/17 04:20 Eos # (Auto) 0.1 K/uL (0.0-0.7) 08/21/17 04:20 Baso # (Auto) 0.1 K/uL (0.0-0.2) 08/21/17 04:20 Neutrophils % (Manual) 48 % (42-75) 08/21/17 04:20 Lymphocytes % (Manual) 31 % (20-50) 08/21/17 04:20 Monocytes % (Manual) 21 % (0-10) H 08/21/17 04:20 Nucleated RBC % 7 % (0-0) H 08/21/17 04:20 Platelet Estimate Normal (NORMAL) 08/21/17 04:20 Hypochromasia (manual) Moderate 08/21/17 04:20 Anisocytosis (manual) Marked 08/21/17 04:20 Macrocytosis (manual) Slight 08/21/17 04:20 Schistocytes Slight 08/21/17 04:20 Retic Count 3.9 % (0.5-1.5) H D 08/21/17 04:20 PT 12.5 Seconds (9.8-13.1) 08/18/17 14:06 INR 1.1 (0.9-1.2) 08/18/17 14:06 APTT 25.5 Seconds (25.6-37.1) L 08/18/17 14:06 Sodium 144 mmol/l (132-148) 08/19/17 05:18 Potassium 4.4 MMOL/L (3.6-5.0) 08/19/17 05:18 Chloride 107 mmol/L (98-107) 08/19/17 05:18 Carbon Dioxide 26 mmol/L (22-30) 08/19/17 05:18 Anion Gap 15 (10-20) 08/19/17 05:18 BUN 22 mg/dl (7-17) H 08/19/17 05:18 Creatinine 1.3 mg/dl (0.7-1.2) H 08/19/17 05:18 Est GFR ( Amer) 50 08/19/17 05:18 Est GFR (Non-Af Amer) 41 08/19/17 05:18 Random Glucose 64 mg/dL (65-105) L 08/19/17 05:18 Calcium 8.8 mg/dL (8.4-10.2) 08/19/17 05:18 Iron 21 ug/dL (37-170) L 08/20/17 04:20 TIBC 399 ug/dL (250-450) 08/20/17 04:20 % Saturation 5 % (20-55) L 08/20/17 04:20 Ferritin 88.7 ng/Ml (11.1-264.0) 08/21/17 04:20 Total Bilirubin 0.6 mg/dl (0.2-1.3) 08/19/17 05:18 AST 32 U/L (14-36) 08/19/17 05:18 ALT 38 U/L (9-52) 08/19/17 05:18 Alkaline Phosphatase 103 U/L (38-126) 08/19/17 05:18 Troponin I 0.0830 ng/mL (0.00-0.120) 08/18/17 14:06 NT-Pro-B Natriuret Pep 3970 pg/ml (0-900) H 08/18/17 14:06 Total Protein 6.4 G/DL (6.3-8.2) 08/19/17 05:18 Albumin 3.2 g/dL (3.5-5.0) L 08/19/17 05:18 Globulin 3.1 gm/dL (2.2-3.9) 08/19/17 05:18 Albumin/Globulin Ratio 1.0 (1.0-2.1) 08/19/17 05:18 Triglycerides 119 mg/DL (0-149) D 08/19/17 05:18 Cholesterol 123 mg/dL (0-199) 08/19/17 05:18 LDL Cholesterol Direct 52 mg/dL (0-129) 08/19/17 05:18 HDL Cholesterol 35 MG/DL (30-70) 08/19/17 05:18 Vitamin B12 456 pg/mL (239-931) 08/21/17 04:20 Thyroxine (T4) 6.61 ug/dl (5.5-11.0) 08/19/17 05:18 TSH 3rd Generation 2.77 mIU/ML (0.46-4.68) 08/19/17 05:18 Urine Color Yellow (YELLOW) 08/18/17 20:06 Urine Clarity Slighty-cloudy (Clear) 08/18/17 20:06 Urine pH 6.0 (5.0-8.0) 08/18/17 20:06 Ur Specific [place] 1.017 (1.003-1.030) 08/18/17 20:06 Urine Protein 30 mg/dL (NEGATIVE) 08/18/17 20:06 Urine Glucose (UA) Neg mg/dL (Normal) 08/18/17 20:06 Urine Ketones Negative mg/dL (NEGATIVE) 08/18/17 20:06 Urine Blood Negative (NEGATIVE) 08/18/17 20:06 Urine Nitrate Negative (NEGATIVE) 08/18/17 20:06 Urine Bilirubin Negative (NEGATIVE) 08/18/17 20:06 Urine Urobilinogen 0.2-1.0 mg/dL (0.2-1.0) 08/18/17 20:06 Ur Leukocyte Esterase Trace Marcelo/uL (Negative) 08/18/17 20:06 Urine RBC (Auto) 4 /hpf (0-3) H 08/18/17 20:06 Urine Microscopic WBC 2 /hpf (0-5) 08/18/17 20:06 Ur Squamous Epith Cells 1 /hpf (0-5) 08/18/17 20:06 Hyaline Casts 3-5 /hpf (0-2) H 08/18/17 20:06 Discharge Exam - Head Exam Head Exam: NORMAL INSPECTION Discharge Plan - Follow Up Plan Condition: STABLE Disposition: HOME/ ROUTINE Instructions: Heart Failure, Adult (DC), Closed Head Injury (DC) Additional Instructions: follow up appt with on sunday08/31/17 at 11:00 am follow up with in 1 week Referrals: Sai Thomas MD [Staff Provider] - German Goel MD [Staff Provider] -
== END 2017-08-21 18:32 | disposition home health service (06) | DRG 582 ==
LOC: H.ER 13:06 → H.ERHOLD 17:22 → H.TEL 20:17
PROVIDERS: ADMIT Internal Medicine Pulmonary Disease; ATTEND Internal Medicine Pulmonary Disease
DX: S09.90XA Unspecified injury of head, initial encounter (principal); I50.32 Chronic diastolic (congestive) heart failure; I11.0 Hypertensive heart disease with heart failure; J44.9 Chronic obstructive pulmonary disease, unspecified; M32.9 Systemic lupus erythematosus, unspecified; W05.0XXA Fall from non-moving wheelchair, initial encounter; Z79.02 Long term (current) use of antithrombotics/antiplatelets; Z79.82 Long term (current) use of aspirin; Z82.3 Family history of stroke; Z82.49 Family history of ischemic heart disease and other diseases of the circulatory system; Z83.3 Family history of diabetes mellitus; Z86.73 Personal history of transient ischemic attack (TIA), and cerebral infarction without residual deficits; Z90.49 Acquired absence of other specified parts of digestive tract; Z95.5 Presence of coronary angioplasty implant and graft; F32.9 Major depressive disorder, single episode, unspecified; F41.9 Anxiety disorder, unspecified; F45.9 Somatoform disorder, unspecified; M54.9 Dorsalgia, unspecified; G89.29 Other chronic pain; K29.70 Gastritis, unspecified, without bleeding; M19.90 Unspecified osteoarthritis, unspecified site; Z79.899 Other long term (current) drug therapy; R00.1 Bradycardia, unspecified; D64.9 Anemia, unspecified; E78.00 Pure hypercholesterolemia, unspecified; G25.81 Restless legs syndrome; G47.33 Obstructive sleep apnea (adult) (pediatric); I25.119 Atherosclerotic heart disease of native coronary artery with unspecified angina pectoris; M06.9 Rheumatoid arthritis, unspecified; M81.0 Age-related osteoporosis without current pathological fracture

== ENCOUNTER 2017-08-27 00:11 | Inpatient (IN) | payer MEDICAID ==
[2017-08-27 00:12] VITALS: BMI 36.6
[2017-08-27] MEDS ORDERED: Albuterol-Ipratrop 3 mg / 0.5 (3 ml) UD INH STA (00:41)
--- NOTE | 2017-08-27 00:45 | ED PDOC ---
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 Pt and sister at bedside report that SOB started this morning. Sister gave her 4 albuterol treatments and this did not improve symptoms. She has had increased coughing with clear/whitish phelgm production. She also had 8 episodes of post-tussive emesis. Pt has been adherent with medical regiment. Denies fever/chills, CP/left arm/jaw pain, nausea/diarrhea, edema. (Dequan Ferrer) Supervising Attending Note - Attestation: I have personally seen and examined this patient.: Yes I have fully participated in the care of the patient.: Yes I have reviewed all pertinent clinical information, including history, physical exam and plan: Yes <Nicolas Sepulveda - Last Filed: 08/27/17 04:15> Past Medical History - Medical History PMH: Anemia, Anxiety, Arthritis, Asthma, Back Problems (chronic back pain), CAD , Cardia Arrhythmia, CHF, COPD, CVA (x3 with left weakness), Depression, Diverticulitis, Gastritis, HTN, Hypercholesterolemia, Osteoporosis, Peripheral Edema, Rheumatoid Arthritis, Sleep Apnea, TIA Denies: HIV, Chronic Kidney Disease, Seizures (denies) - Surgical History Surgical History: Appendectomy, Coronary Stent ([place] [facility] [place]), (x2) Denies: Cholecystectomy - Family History Family History: States: Unknown Family Hx - Immunization History Hx Influenza Vaccination: Yes <Dequan Ferrer - Last Filed: 08/27/17 02:15> <Nicolas Sepulveda - Last Filed: 08/27/17 04:15> Vital Signs: Last Vital Signs Temp 97.8 F 08/27/17 00:50 Pulse 60 08/27/17 01:52 Resp 22 08/27/17 01:52 BP 120/71 08/27/17 01:52 Pulse Ox 96 08/27/17 01:52 - Home Medications Home Medications: Ambulatory Orders Medication Instructions Recorded Folic Acid 1 mg PO DAILY #30 tab 07/21/17 Hydroxychloroquine Sulfate 200 mg PO Q12H #60 tablet 07/21/17 [Plaquenil] Meloxicam [Mobic] 7.5 mg PO DAILY #30 tab 07/21/17 guaiFENesin/Dextromethorphan 10 ml PO Q4 PRN #1 bottle 07/21/17 [Robitussin DM] Atorvastatin [Lipitor] 10 mg PO DAILY #30 tab 07/23/17 Clopidogrel [Plavix] 75 mg PO DAILY #30 tab 07/23/17 Escitalopram [Lexapro] 10 mg PO DAILY #30 tab 07/23/17 Metoprolol Succinate [Toprol XL] 25 mg PO DAILY #30 tab 07/23/17 Mirtazapine [Remeron] 30 mg PO HS #30 tab 07/23/17 Nystatin [Nystatin Oral Susp] 5 ml PO QID #1 bottle 07/23/17 Polyethylene Glycol/Polyvinyl 2 drop OU Q6 PRN #1 bottle 07/23/17 [Artificial Tears] Promethazine/Codeine 10 ml PO Q8 #300 ml 07/23/17 [Phenergan/Codeine Oral Syrup] Aspirin 81 mg PO DAILY #30 tab.chew 07/28/17 Nitroglycerin 0.4 mg SL Q5MIN PRN #30 tab.subl 07/28/17 Ciclopirox/Ure/Camph/Menth/Euc 34.6 ml TP DAILY 08/18/17 [Ciclopirox 8% Treatment Kit] Cyanocobalamin (Vitamin B-12) 1 each NS QWK 08/18/17 [Nascobal] Famotidine [Heartburn Prevention] 20 mg PO Q12 08/18/17 Loratadine [Claritin] 10 mg PO DAILY 08/18/17 Mirtazapine [Remeron] 30 mg PO HS 08/18/17 Mupirocin 2% Ointment [Bactroban 15 gm TOP BID 08/18/17 Ointment] Pantoprazole [Protonix EC Tab] 40 mg PO PRN PRN 08/18/17 Ropinirole HCl 1 mg PO HS 08/18/17 predniSONE [predniSONE Tab] 10 mg PO DAILY 08/18/17 raNITIdine [Zantac Soln 5ml] 150 mg PO BID PRN 08/18/17 - Allergies Allergies/Adverse Reactions: Allergies Allergy/AdvReac Type Severity Reaction Status Date / Time No Known Allergies Allergy Verified 08/27/17 00:23 Review of Systems Constitutional: Negative for: Fever, Chills Cardiovascular: Negative for: Chest Pain, Palpitations, Orthopnea, Paroxysmal Noc. Dyspnea, Edema, Light Headedness Respiratory: Positive for: Cough, Shortness of Breath, SOB with Exertion, Sputum , Wheezing. Negative for: Hemoptysis, Pleuritic Pain Gastrointestinal: Positive for: Vomiting. Negative for: Nausea, Abdominal Pain , Diarrhea, Constipation, Melena, Hematochezia, Hematemesis Genitourinary Female: Negative for: Dysuria, Frequency, Incontinence Musculoskeletal: Negative for: Neck Pain, Arm Pain, Back Pain, Leg Pain Skin: Negative for: Rash Neurological: Negative for: Weakness, Numbness, Incoordination, Confusion, Seizures, Altered Mental Status Psych: Negative for: Anxiety, Depression <Dequan Ferrer - Last Filed: 08/27/17 02:15> Physical Exam - Reviewed Nursing Documentation Reviewed: Yes Vital Signs Reviewed: Yes - Physical Exam Appears: Positive for: Non-toxic, Uncomfortable Head Exam: Positive for: ATRAUMATIC, NORMAL INSPECTION, NORMOCEPHALIC Skin: Positive for: Warm, Dry. Negative for: Diaphoresis, Pallor Eye Exam: Positive for: EOMI, PERRL. Negative for: Conjunctival injection, Scleral icterus Neck: Positive for: Painless ROM, Supple Cardiovascular/Chest: Positive for: Regular Rate, Rhythm, Chest Non Tender. Negative for: Edema, JVD, Murmur, Bradycardia, Tachycardia Respiratory: Positive for: Normal Breath Sounds, Wheezing (scattered expiratory wheezes ). Negative for: Decreased Breath Sounds, Accessory Muscle Use, Crackles, Rales, Rhonchi, Respiratory Distress Pulses-Radial (L): 2+ Pulses-Radial (R): 2+ Gastrointestinal/Abdominal: Positive for: Bowel Sounds (normal ), Soft, Tenderness Extremity: Positive for: Capillary Refill (<2s). Negative for: Tenderness, Pedal Edema, Calf Tenderness, Deformity Lymphatic: Negative for: Normal Exam Neurologic/Psych: Positive for: Alert, client support analyst II-XII, Oriented. Negative for: Motor/Sensory Deficits, Gait <Dequan Ferrer - Last Filed: 08/27/17 02:15> - Laboratory Results Result Diagrams: 08/27/17 01:17 08/27/17 01:17 - Progress Re-evaluation Time: 02:15 Condition: Re-examined, Unchanged <Dequan Ferrer - Last Filed: 08/27/17 02:15> - Laboratory Results Result Diagrams: 08/27/17 01:17 08/27/17 01:17 <Nicolas Sepulveda - Last Filed: 08/27/17 04:15> - Progress ED Course And Treament: COPD/ACS/acute CHF/Asthma/Anxiety CBC CMP Trop BNP COAGS VBG CXR EKG Xanax Albuterol Zofran -re-evaluate -elevated P-BNP, 6090, troponin WNL, CMP hemolyzed -re-evaluated, symptoms unchanged, still on re-breather, pt to be admitted. ( Dequan Ferrer) Disposition - Patient ED Disposition Is Patient to be Admitted: Yes - Disposition Disposition Time: 02:16 <Dequan Ferrer - Last Filed: 08/27/17 02:15> <Nicolas Sepulveda - Last Filed: 08/27/17 04:15> - Clinical Impression Clinical Impression: Acute dyspnea - Disposition Condition: STABLE
[2017-08-27] MEDS ORDERED: Albuterol-Ipratrop 3 mg / 0.5 (3 ml) UD ONE ×3 (00:53→09:00)
[2017-08-27 01:43] LABS: VENOUS BLOOD GAS BASE EXCESS -2.1 mmol/L (0.0-2.0); VENOUS BLOOD GAS PCO2 58 mmHg (40-60); VENOUS BLOOD GAS PO2 31 mm/Hg (30-55); VENOUS BLOOD PH 7.26 (7.32-7.43)
[2017-08-27 01:48] LABS: BASO # 0.1 K/uL (0.0-0.2); BASO % 0.7 % (0.0-2.0); EOS # 0.1 K/uL (0.0-0.7); EOS % 0.8 % (0.0-4.0); HEMOGLOBIN 9.3 g/dL (12.0-16.0); LYMPH # 1.8 K/uL (1.0-4.3); LYMPH % 17.8 % (20.0-40.0); MEAN CELL VOLUME 95.7 fl (81.0-99.0); MEAN CORPUSCULAR HEMOGLOBIN 29.9 pg (27.0-31.0); MEAN CORPUSCULAR HGB CONC 31.3 g/dL (33.0-37.0); MEAN PLATELET VOLUME 9.7 fl (7.2-11.7); MONO # 1.8 K/uL (0.0-0.8); MONO % 18.5 % (0.0-10.0); NEUT # 6.2 K/uL (1.8-7.0); NEUT % 62.2 % (50.0-75.0); NRBC % 1.3 % (0.0-0.0); RBC 3.11 Mil/uL (3.80-5.20); RED CELL DISTRIBUTION WIDTH 25.1 % (11.5-14.5)
[2017-08-27] MEDS ORDERED: Promethazine 12.5 mg/10 ml Syrup PO STA (01:49)
[2017-08-27] MEDS ORDERED: Promethazine 6.25 MG/5 ML CUP ONE (01:49)
[2017-08-27 01:53] LABS: TROPONIN I 0.058 ng/mL (0.00-0.120)
[2017-08-27 01:54] LABS: INR 1.2 (0.9-1.2); PARTIAL THROMBOPLASTIN TIME 24.1 Seconds (25.6-37.1); PROTHROMBIN TIME 12.8 Seconds (9.8-13.1)
--- NOTE | 2017-08-27 02:31 | CP.PCM.HP ---
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 She comes in with 2 days of dry cough and worsening SOB. Denies CP. Denies f/c/n/v/d. She really has no other complaints besides the breathing. Says that she has been using her home O2 as prescribed. Patient previously admitted multiple times this year with breathing/resp issues. PMD: Dr. Albright Test Manager: Dr. 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, CAD/ME, HTN, HLD, rheumatoid arthritis, SLE, osteoporosis, thrombocytopenia due to asplenia, and Sleep apnea on CPAP SHx: Carpal tunnel surgery, C- sections x 2, bunion removal,splecectomy Allergies: NKDA Medications: Per med rec Family Hx: M with HTN, DM and CABG, F had CVA HTN and DM Social Hx: Lives at home, no EtOH, no tobacco currently Surrogate: Daughter, info on chart Present on Admission - Present on Admission Any Indicators Present on Admission: No Past Patient History - Infectious Disease Hx of Infectious Diseases: None - Tetanus Immunizations Tetanus Immunization: Unknown - Past Medical History & Family History Past Medical History?: Yes - Past Social History Smoking Status: Never Smoked - CARDIAC Hx Cardia Arrhythmia: Yes Hx Congestive Heart Failure: Yes Hx Hypercholesterolemia: Yes Hx Hypertension: Yes Hx Peripheral Edema: Yes - PULMONARY Hx Asthma: Yes Hx Chronic Obstructive Pulmonary Disease (COPD): Yes Hx Sleep Apnea: Yes - NEUROLOGICAL Hx Seizures: No (denies) Hx Transient Ischemic Attacks (TIA): Yes - HEENT Hx HEENT Problems: No - RENAL Hx Chronic Kidney Disease: No - ENDOCRINE/METABOLIC Hx Endocrine Disorders: No - HEMATOLOGICAL/ONCOLOGICAL Hx Anemia: Yes Hx Human Immunodeficiency Virus (HIV): No - INTEGUMENTARY Hx Dermatological Problems: No - MUSCULOSKELETAL/RHEUMATOLOGICAL Hx Arthritis: Yes Hx Osteoporosis: Yes Hx Rheumatoid Arthritis: Yes - GASTROINTESTINAL Hx Diverticulitis: Yes Hx Gastritis: Yes - GENITOURINARY/GYNECOLOGICAL Hx Genitourinary Disorders: Yes - PSYCHIATRIC Hx Anxiety: Yes Hx Depression: Yes - SURGICAL HISTORY Hx Appendectomy: Yes Hx Cholecystectomy: No Hx Coronary Stent: Yes (Rex perez [facility] [place]) - ANESTHESIA Hx Anesthesia: Yes Hx Anesthesia Reactions: No Hx Malignant Hyperthermia: No Meds Allergies/Adverse Reactions: Allergies Allergy/AdvReac Type Severity Reaction Status Date / Time No Known Allergies Allergy Verified 08/27/17 00:23 Physical Exam - Constitutional Appears: No Acute Distress - Head Exam Head Exam: ATRAUMATIC, NORMOCEPHALIC - Eye Exam Eye Exam: EOMI, PERRL - ENT Exam ENT Exam: Mucous Membranes Dry - Neck Exam Neck exam: Positive for: Full Rom - Respiratory Exam Respiratory Exam: Rhonchi, Wheezes Additional comments: mild difficulty in breathing - Cardiovascular Exam Cardiovascular Exam: REGULAR RHYTHM, +S1, +S2 - GI/Abdominal Exam GI & Abdominal Exam: Normal Bowel Sounds, Soft - Extremities Exam Extremities exam: Positive for: full ROM Additional comments: trace edema - Neurological Exam Neurological exam: Alert, CN II-XII Intact, Oriented x3 - Psychiatric Exam Psychiatric exam: Normal Affect, Normal Mood - Skin Skin Exam: Dry, Warm Results - Vital Signs Recent Vital Signs: Last Vital Signs Temp 97.8 F 08/27/17 00:50 Pulse 60 08/27/17 01:52 Resp 22 08/27/17 01:52 BP 120/71 08/27/17 01:52 Pulse Ox 96 08/27/17 01:52 - Labs Result Diagrams: 08/27/17 01:17 08/27/17 01:17 Labs: Laboratory Results - last 24 hr 08/27/17 08/27/17 08/27/17 01:17 01:17 01:17 WBC 10.0 RBC 3.11 L Hgb 9.3 L Hct 29.8 L MCV 95.7 D MCH 29.9 MCHC 31.3 L RDW 25.1 H Plt Count 153 MPV 9.7 Neut % (Auto) 62.2 Lymph % (Auto) 17.8 L [place] % (Auto) 18.5 H Eos % (Auto) 0.8 Baso % (Auto) 0.7 Neut # (Auto) 6.2 Lymph # (Auto) 1.8 [place] # (Auto) 1.8 H Eos # (Auto) 0.1 Baso # (Auto) 0.1 PT 12.8 INR 1.2 APTT 24.1 L pO2 VBG pH VBG pCO2 VBG HCO3 VBG Total CO2 VBG O2 Sat (Calc) VBG Base Excess VBG Potassium Glucose Lactate FiO2 Sodium 144 Potassium 5.1 H Chloride 108 H Carbon Dioxide 25 Anion Gap 16 BUN 28 H Creatinine 1.2 Est GFR ( Amer) 55 Est GFR (Non-Af Amer) 45 Random Glucose 105 Calcium 9.0 Troponin I 0.0580 NT-Pro-B Natriuret Pep 6090 H Venous Blood Potassium 08/27/17 01:40 WBC RBC Hgb Hct MCV MCH MCHC RDW Plt Count MPV Neut % (Auto) Lymph % (Auto) [place] % (Auto) Eos % (Auto) Baso % (Auto) Neut # (Auto) Lymph # (Auto) [place] # (Auto) Eos # (Auto) Baso # (Auto) PT INR APTT pO2 31 VBG pH 7.26 L VBG pCO2 58 VBG HCO3 22.0 VBG Total CO2 27.8 VBG O2 Sat (Calc) 55.7 VBG Base Excess -2.1 L VBG Potassium 4.7 Glucose 103 Lactate 2.1 FiO2 21.0 Sodium 141.0 Potassium Chloride 110.0 H Carbon Dioxide Anion Gap BUN Creatinine Est GFR ( Amer) Est GFR (Non-Af Amer) Random Glucose Calcium Troponin I NT-Pro-B Natriuret Pep Venous Blood Potassium 4.7 - EKG Data EKG comments: pending - Imaging and Cardiology Chest x-ray Status: Image reviewed by me (no obvious consolidations, no effusions) Assessment & Plan (1) COPD (chronic obstructive pulmonary disease) Assessment and Plan: 61 y/o female with multiple chronic medical problems presenting with SOB x 2 days and dry cough. Also elevated BNP. 1) COPD exac -Cont duonebs standing + PRN -Will start on azithromycin IV for COPD coverage, if worsens, can add ceftriaxone as well -Will start IV solumedrol 60 mg IV -Supp O2 2) CHF/Pulm HTN -- Elevated BNP noted -Will give one dose of 40 mg IV lasix; reasses in AM and decide whether to continue diuresis 3) SLE -- cont home medications 4) GERD -- cont Protonix PO 5) DVT PPx -- SC Lovenox Status: Acute (2) CHF (congestive heart failure) Status: Chronic Priority: High (3) Pulmonary artery hypertension Status: Chronic Priority: High (4) OLIVIA (obstructive sleep apnea) Status: Chronic Priority: High (5) SLE (systemic lupus erythematosus) Status: Chronic Priority: High (6) DVT prophylaxis Status: Acute
[2017-08-27] MEDS ORDERED: Albuterol-Ipratrop 3 mg / 0.5 (3 ml) UD INH PRN ×2 (02:42→09:53)
[2017-08-27] MEDS ORDERED: Azithromycin 500 MG in Sodium Chloride 0.9% 250 ML IVPB STA (02:58)
[2017-08-27] MEDS ORDERED: methylPREDNISolone 60 MG in Sodium Chloride 0.9% 50 ML IVPB SCH (03:00)
[2017-08-27] MEDS ORDERED: Pantoprazole 40 mg EC Tab PO ONE (05:48)
[2017-08-27] MEDS: Pantoprazole 40 mg EC Tab PO SCH ×2 (05:49→10:59)
[2017-08-27] MEDS ORDERED: Alum-Mag Hydrox-Simethicone Susp (30 mL) PO ONE (06:26)
[2017-08-27] MEDS ORDERED: Alum-Mag Hydrox-Simethicone Susp (30 mL) ONE (06:40)
[2017-08-27] MEDS ORDERED: Albuterol-Ipratrop 3 mg / 0.5 (3 ml) UD INH SCH (08:00)
--- NOTE | 2017-08-27 09:15 | RAD ---
PROCEDURE: CHEST RADIOGRAPH, 1 VIEW HISTORY: sob COMPARISON: Portable chest 07/24/2017. FINDINGS: LUNGS: No interval airspace disease bilaterally. Inspiratory volume however appears somewhat talus once again. PLEURA: No pneumothorax or pleural fluid seen. CARDIOVASCULAR: Intrinsic cardiomegaly or technically magnified cardiomediastinal silhouette. OSSEOUS STRUCTURES: No significant abnormalities. VISUALIZED UPPER ABDOMEN: Normal. OTHER FINDINGS: None. IMPRESSION: No acute cardiopulmonary disease appreciable grossly.
[2017-08-27 10:57] LABS: ABG ALLEN TEST YES; ARTERIAL BLOOD GAS HCO3 21.5 mmol/L (21-28); ARTERIAL BLOOD GAS HEMOGLOBIN 9.3 g/dL (11.7-17.4); ARTERIAL BLOOD GAS O2 CAPACITY 12.9 mL/dL (16-24); ARTERIAL BLOOD GAS O2 CONTENT 12.7 ML/dL (15-23); ARTERIAL BLOOD GAS O2 SAT 98.7 % (95-98); ARTERIAL BLOOD GAS PCO2 49 mm/Hg (35-45); ARTERIAL BLOOD GAS PH 7.27 (7.35-7.45); ARTERIAL BLOOD GAS PO2 89 mm/Hg (80-100)
[2017-08-27] MEDS: Metoprolol Succinate 25 mg XL Tab PO SCH (10:58)
[2017-08-27] MEDS: Albuterol-Ipratrop 3 mg / 0.5 (3 ml) UD INH SCH ×5 (11:03→23:47)
[2017-08-27 12:51] LABS: SQUAMOUS EPITHIAL 5 /hpf (0-5); URINE AMORPHOUS SEDIMENT RARE /ul (<OCC); URINE BACTERIA RARE (<OCC); URINE BILIRUBIN NEGATIVE (NEGATIVE); URINE BLOOD NEGATIVE (NEGATIVE); URINE CLARITY SLIGHTY-CLOUDY (Clear); URINE COLOR YELLOW (YELLOW); URINE GLUCOSE (UA) NEG (Normal); URINE LEUKOCYTE ESTERASE NEG Leu/uL (Negative); URINE PROTEIN 100 mg/dL (NEGATIVE); URINE UROBILINOGEN 0.2-1.0 mg/dL (0.2-1.0)
--- NOTE | 2017-08-27 16:05 | CP.PCM.CON ---
History of Present Illness - History of Present Illness History of Present Illness: CC: SOB, respiratory distress. Pulmonary consult for a 61 y/o F, with multiple chronic medical conditions, including COPD, Pulmonary HTN, OLIVIA, Hx of CVA x3, Chronic CHF, CAD with coronary stent, SLE, R/A, [facility] to be evaluated for respiratory insufficiency that began night [employer]. Pt using nebulizer Tx x 4, and O2 while at home but continue with worsening SOB without relief, symptom associated to wheezing, dry cough. denied hemoptysis, pleuritic pain. Worsening symptoms: REBOLLEDO, SOB at rest, 8 episodes of post-tussive emesis. Aggravated factor: Movements/exercise. Pt denied: Fever, chills, CP, palpitations, nausea, diarrhea, abdominal pain, urinary symptoms, sick contact, recent travel out of [facility]. CXR: No acute cardiopulmonary disease. Review of Systems - Constitutional Constitutional: Sleep Apnea, Weakness - EENT Eyes: Other (negative) Ears: Other (negative) Nose/Mouth/Throat: Other (negative) - Cardiovascular Cardiovascular: Dyspnea, Dyspnea on Exertion - Respiratory Respiratory: Cough, Dyspnea, Dyspnea on Exertion, Wheezing - Gastrointestinal Gastrointestinal: Other (negative) - Genitourinary Genitourinary: Other (negative) - Musculoskeletal Musculoskeletal: Arthralgias, Back Pain (chronic) - Integumentary Integumentary: Other (negative) - Neurological Neurological: Weakness - Psychiatric Psychiatric: Anxiety, Depression - Endocrine Endocrine: Other (negative) - Hematologic/Lymphatic Hematologic: Other (anemia) Past Patient History - Infectious Disease Hx of Infectious Diseases: None - Tetanus Immunizations Tetanus Immunization: Unknown - Past Medical History & Family History Past Medical History?: Yes Pertinent Family History: Mother: DM, HTN, CABG. Father: DM, HTN, CVA - Past Social History Smoking Status: Never Smoked Alcohol: None Drugs: Denies Home Situation {Lives}: Alone - CARDIAC Hx Cardiac Disorders: Yes Hx Cardia Arrhythmia: Yes Hx Congestive Heart Failure: Yes Hx Hypercholesterolemia: Yes Hx Hypertension: Yes Hx Peripheral Edema: Yes - PULMONARY Hx Respiratory Disorders: Yes Hx Asthma: Yes Hx Chronic Obstructive Pulmonary Disease (COPD): Yes Hx Sleep Apnea: Yes - NEUROLOGICAL Hx Neurological Disorder: Yes HX Cerebrovascular Accident: Yes Hx Transient Ischemic Attacks (TIA): Yes - HEENT Hx HEENT Problems: No - RENAL Hx Chronic Kidney Disease: No - ENDOCRINE/METABOLIC Hx Systemic Lupus Erythematosus: Yes - HEMATOLOGICAL/ONCOLOGICAL Hx Blood Disorders: Yes Hx AIDS: No Hx Anemia: Yes Hx Human Immunodeficiency Virus (HIV): No - INTEGUMENTARY Hx Dermatological Problems: No - MUSCULOSKELETAL/RHEUMATOLOGICAL Hx Musculoskeletal Disorders: Yes Hx Arthritis: Yes Hx Back Pain: Yes Hx Falls: No Hx Osteoporosis: Yes Hx Rheumatoid Arthritis: Yes Other/Comment: SLE , Restless leg syndrome - GASTROINTESTINAL Hx Gastrointestinal Disorders: Yes Hx Diverticulitis: Yes Hx Gastritis: Yes - GENITOURINARY/GYNECOLOGICAL Hx Genitourinary Disorders: Yes - PSYCHIATRIC Hx Psychophysiologic Disorder: Yes Hx Anxiety: Yes Hx Depression: Yes Hx Substance Use: No - SURGICAL HISTORY Hx Surgeries: Yes Hx Appendectomy: Yes Hx Cholecystectomy: No Hx Coronary Stent: Yes (Rex perez [facility] [place]) - ANESTHESIA Hx Anesthesia: Yes Hx Anesthesia Reactions: No Hx Malignant Hyperthermia: No Meds Allergies/Adverse Reactions: Allergies Allergy/AdvReac Type Severity Reaction Status Date / Time No Known Allergies Allergy Verified 08/27/17 00:23 - Medications Medications: Current Medications Acetaminophen (Tylenol 325mg Tab) 650 mg PO Q6 PRN PRN Reason: Fever >100.4 F Albuterol/Ipratropium (Duoneb 3 Mg/0.5 Mg (3 Ml) Ud) 3 ml INH RQ3 [facility] Last Admin: 08/27/17 13:13 Dose: 3 ml Albuterol/Ipratropium (Duoneb 3 Mg/0.5 Mg (3 Ml) Ud) 3 ml INH Q1 PRN PRN Reason: Shortness of Breath Artificial Tears (Artificial Tears) 2 drop OU Q6 PRN PRN Reason: Dry eyes Aspirin (Aspirin Chewable) 81 mg PO DAILY [facility] Last Admin: 08/27/17 10:59 Dose: 81 mg Atorvastatin Calcium (Lipitor) 10 mg PO DAILY [facility] Last Admin: 08/27/17 10:58 Dose: 10 mg Clopidogrel Bisulfate (Plavix) 75 mg PO DAILY [facility] Last Admin: 08/27/17 10:57 Dose: 75 mg Escitalopram Oxalate (Lexapro) 10 mg PO DAILY [facility] Last Admin: 08/27/17 10:57 Dose: 10 mg Famotidine (Pepcid) 20 mg PO Q12 [facility] Last Admin: 08/27/17 10:58 Dose: 20 mg Folic Acid (Folic Acid) 1 mg PO DAILY [facility] Last Admin: 08/27/17 10:58 Dose: 1 mg Home Med (Ropinirole Hcl [Ropinirole Hcl]) 1 mg PO [facility] Hydroxychloroquine Sulfate (Plaquenil) 200 mg PO Q12H [facility] PRN Reason: Protocol Last Admin: 08/27/17 15:21 Dose: 200 mg Azithromycin 500 mg/ Sodium (Chloride) 250 mls @ 250 mls/hr IVPB DAILY [facility] PRN Reason: Protocol Loratadine (Claritin) 10 mg PO DAILY [facility] Last Admin: 08/27/17 10:59 Dose: 10 mg Methylprednisolone (Solu-Medrol) 60 mg IV Q8 [facility] Last Admin: 08/27/17 11:00 Dose: 60 mg Metoprolol Succinate (Toprol Xl) 25 mg PO DAILY [facility] Last Admin: 08/27/17 10:58 Dose: 25 mg Ondansetron HCl (Zofran Odt) 4 mg PO Q8H PRN PRN Reason: Nausea/Vomiting Last Admin: 08/27/17 05:35 Dose: 4 mg Pantoprazole Sodium (Protonix Ec Tab) 40 mg PO DAILY [facility] Last Admin: 08/27/17 10:59 Dose: 40 mg Physical Exam - Constitutional Appears: Chronically Ill - Head Exam Head Exam: NORMAL INSPECTION - Eye Exam Eye Exam: PERRL - ENT Exam ENT Exam: Mucous Membranes Dry - Neck Exam Neck exam: Positive for: Normal Inspection - Respiratory Exam Respiratory Exam: Decreased Breath Sounds (B/L), Rhonchi, Wheezes - Cardiovascular Exam Cardiovascular Exam: REGULAR RHYTHM - GI/Abdominal Exam GI & Abdominal Exam: Normal Bowel Sounds, Soft - Extremities Exam Additional comments: Trace edema. - Back Exam Back exam: NORMAL INSPECTION - Neurological Exam Neurological exam: Alert, CN II-XII Intact, Oriented x3 Additional comments: no focal , motor /sensory deficit , generalized weakness - Psychiatric Exam Psychiatric exam: Normal Affect - Skin Skin Exam: Warm Results - Vital Signs Recent Vital Signs: Last Vital Signs Temp 97.8 F 08/27/17 12:00 Pulse 63 08/27/17 14:00 Resp 28 H 08/27/17 14:00 BP 146/75 08/27/17 14:00 Pulse Ox 94 L 08/27/17 14:00 reviewed J.P. - Labs Result Diagrams: 08/29/17 04:20 08/29/17 04:20 Labs: Laboratory Results - last 24 hr 08/27/17 08/27/17 08/27/17 01:17 01:17 01:17 WBC 10.0 RBC 3.11 L Hgb 9.3 L Hct 29.8 L MCV 95.7 D MCH 29.9 MCHC 31.3 L RDW 25.1 H Plt Count 153 MPV 9.7 Neut % (Auto) 62.2 Lymph % (Auto) 17.8 L [place] % (Auto) 18.5 H Eos % (Auto) 0.8 Baso % (Auto) 0.7 Neut # (Auto) 6.2 Lymph # (Auto) 1.8 [place] # (Auto) 1.8 H Eos # (Auto) 0.1 Baso # (Auto) 0.1 PT 12.8 INR 1.2 APTT 24.1 L pCO2 pO2 HCO3 ABG pH ABG Total CO2 ABG O2 Saturation ABG O2 Content ABG Base Excess ABG Hemoglobin ABG Carboxyhemoglobin POC ABG HHb (Measured) ABG Methemoglobin ABG O2 Capacity Gio Test VBG pH VBG pCO2 VBG HCO3 VBG Total CO2 VBG O2 Sat (Calc) VBG Base Excess VBG Potassium A-a O2 Difference Hgb O2 Saturation Glucose Lactate FiO2 Blood Gas Comments Crit Value Read Back Sodium 144 Potassium 5.1 H Chloride 108 H Carbon Dioxide 25 Anion Gap 16 BUN 28 H Creatinine 1.2 Est GFR ( Amer) 55 Est GFR (Non-Af Amer) 45 Random Glucose 105 Calcium 9.0 Troponin I 0.0580 NT-Pro-B Natriuret Pep 6090 H Venous Blood Potassium Urine Color Urine Clarity Urine pH Ur Specific [place] Urine Protein Urine Glucose (UA) Urine Ketones Urine Blood Urine Nitrate Urine Bilirubin Urine Urobilinogen Ur Leukocyte Esterase Urine RBC (Auto) Urine Microscopic WBC Ur Squamous Epith Cells Amorphous Sediment Urine Bacteria Hyaline Casts 08/27/17 08/27/17 08/27/17 01:40 09:58 12:20 WBC RBC Hgb Hct MCV MCH MCHC RDW Plt Count MPV Neut % (Auto) Lymph % (Auto) [place] % (Auto) Eos % (Auto) Baso % (Auto) Neut # (Auto) Lymph # (Auto) [place] # (Auto) Eos # (Auto) Baso # (Auto) PT INR APTT pCO2 49 H pO2 31 89 HCO3 21.5 ABG pH 7.27 L ABG Total CO2 24.0 ABG O2 Saturation 98.7 H ABG O2 Content 12.7 L ABG Base Excess -4.4 L ABG Hemoglobin 9.3 L ABG Carboxyhemoglobin 2.2 H POC ABG HHb (Measured) 1.3 ABG Methemoglobin 0.7 ABG O2 Capacity 12.9 L Gio Test Yes VBG pH 7.26 L VBG pCO2 58 VBG HCO3 22.0 VBG Total CO2 27.8 VBG O2 Sat (Calc) 55.7 VBG Base Excess -2.1 L VBG Potassium 4.7 A-a O2 Difference 57.0 Hgb O2 Saturation 95.8 Glucose 103 Lactate 2.1 FiO2 21.0 29.0 Blood Gas Comments 2l/m nc,rr Crit Value Read Back N Sodium 141.0 Potassium Chloride 110.0 H Carbon Dioxide Anion Gap BUN Creatinine Est GFR ( Amer) Est GFR (Non-Af Amer) Random Glucose Calcium Troponin I NT-Pro-B Natriuret Pep Venous Blood Potassium 4.7 Urine Color Yellow Urine Clarity Slighty-cloudy Urine pH 6.0 Ur Specific [place] 1.013 Urine Protein 100 Urine Glucose (UA) Neg Urine Ketones Negative Urine Blood Negative Urine Nitrate Negative Urine Bilirubin Negative Urine Urobilinogen 0.2-1.0 Ur Leukocyte Esterase Neg Urine RBC (Auto) 3 Urine Microscopic WBC 4 Ur Squamous Epith Cells 5 Amorphous Sediment Rare H Urine Bacteria Rare Hyaline Casts 6-10 H reviewed J.P. - Imaging and Cardiology Chest x-ray Status: Report reviewed by me (J.P.) Assessment & Plan (1) COPD exacerbation Status: Acute Priority: High (2) CHF (congestive heart failure) Status: Acute Priority: High (3) RA (rheumatoid arthritis) Status: Chronic Priority: High (4) OLIVIA (obstructive sleep apnea) Status: Chronic Priority: High (5) SLE (systemic lupus erythematosus) Status: Chronic Priority: High (6) Pulmonary HTN Status: Chronic Priority: High - Assessment and Plan (Free Text) Plan: Continue NC 2 l/m, Zithromax, Duoneb, Solu-Medrol and rest of Tx. - Date & Time Date: 08/27/17 Time: 12:00
[2017-08-27] MEDS ORDERED: ROPINIROLE HCL 1 MG PO SCH (22:00)
--- NOTE | 2017-08-27 22:30 | CARD ---
APPROVED REPORT EKG Measurement Heart [id number] <Conclusion> Normal sinus rhythm Nonspecific T wave abnormality Abnormal ECG
[2017-08-28] MEDS: Albuterol-Ipratrop 3 mg / 0.5 (3 ml) UD INH SCH ×8 (01:11→23:20)
[2017-08-28 05:54] LABS: BASO % 0.5 % (0.0-2.0); EOS % 0.3 % (0.0-4.0); HEMOGLOBIN 8.8 g/dL (12.0-16.0); LYMPH # 0.4 K/uL (1.0-4.3); LYMPH % 7.2 % (20.0-40.0); MEAN CELL VOLUME 96.2 fl (81.0-99.0); MEAN CORPUSCULAR HEMOGLOBIN 29.5 pg (27.0-31.0); MEAN CORPUSCULAR HGB CONC 30.7 g/dL (33.0-37.0); MEAN PLATELET VOLUME 9.7 fl (7.2-11.7); MONO # 0.5 K/uL (0.0-0.8); MONO % 9.5 % (0.0-10.0); NEUT # 4.5 K/uL (1.8-7.0); NEUT % 82.5 % (50.0-75.0); NRBC % 3.7 % (0.0-0.0); PLATELET COUNT 135 K/uL (130-400); RBC 2.99 Mil/uL (3.80-5.20); WHITE BLOOD COUNT 5.4 K/uL (4.8-10.8)
[2017-08-28 06:18] LABS: CALCIUM 8.6 mg/dL (8.4-10.2)
[2017-08-28] MEDS: Artificial Tears Opht Soln OU PRN (08:41)
[2017-08-28] MEDS: Metoprolol Succinate 25 mg XL Tab PO SCH (08:43)
[2017-08-28] MEDS: Azithromycin 500 MG in Sodium Chloride 0.9% 250 ML IVPB SCH (08:46)
[2017-08-28] MEDS: Pantoprazole 40 mg EC Tab PO SCH (08:46)
[2017-08-28 10:59] LABS: ANISOCYTOSIS MODERATE; LYMPHOCYTE 9 % (20-50); MONOCYTE 10 % (0-10); NEUTROPHIL 81 % (42-75); NUCLEATED RED BLOOD CELL 4 % (0-0); PLATELET ESTIMATE NORMAL (NORMAL); TOTAL CELLS COUNTED 100
[2017-08-28 11:12] LABS: HYPOCHROMIC MODERATE; POLYCHROMIC SLIGHT
[2017-08-28 11:13] LABS: LARGE PLATELETS PRESENT; SCHISTOCYTES SLIGHT
--- NOTE | 2017-08-28 11:20 | CP.PCM.PN ---
Subjective - Date & Time of Evaluation Date of Evaluation: 08/28/17 Time of Evaluation: 11:00 - Subjective Subjective: Pt is afebrile still with SOB and wheezing dry cough off NRBM - now on Oxygen per NC- saturating 90% episodes of tachypnea denies CP no abd pain CXR : neg Objective - Vital Signs/Intake and Output Vital Signs (last 24 hours): Temp Pulse Resp BP Pulse Ox 97.7 F 63 19 115/38 L 96 08/28/17 08:00 08/28/17 10:00 08/28/17 10:00 08/28/17 10:00 08/28/17 10:00 - Medications Medications: Current Medications Acetaminophen (Tylenol 325mg Tab) 650 mg PO Q6 PRN PRN Reason: Fever >100.4 F Albuterol/Ipratropium (Duoneb 3 Mg/0.5 Mg (3 Ml) Ud) 3 ml INH Q1 PRN PRN Reason: Shortness of Breath Artificial Tears (Artificial Tears) 2 drop OU Q6 PRN PRN Reason: Dry eyes Last Admin: 08/28/17 08:41 Dose: 2 drop Aspirin (Aspirin Chewable) 81 mg PO DAILY [facility] Last Admin: 08/28/17 08:42 Dose: 81 mg Atorvastatin Calcium (Lipitor) 10 mg PO DAILY [facility] Last Admin: 08/28/17 08:42 Dose: 10 mg Clopidogrel Bisulfate (Plavix) 75 mg PO DAILY [facility] Last Admin: 08/28/17 08:44 Dose: 75 mg Escitalopram Oxalate (Lexapro) 10 mg PO DAILY [facility] Last Admin: 08/28/17 08:42 Dose: 10 mg Famotidine (Pepcid) 20 mg PO Q12 [facility] Last Admin: 08/27/17 21:48 Dose: 20 mg Folic Acid (Folic Acid) 1 mg PO DAILY [facility] Last Admin: 08/28/17 08:42 Dose: 1 mg Home Med (Ropinirole Hcl [Ropinirole Hcl]) 1 mg PO [facility] Hydroxychloroquine Sulfate (Plaquenil) 200 mg PO Q12H [facility] PRN Reason: Protocol Last Admin: 08/28/17 02:37 Dose: 200 mg Azithromycin 500 mg/ Sodium (Chloride) 250 mls @ 250 mls/hr IVPB DAILY [facility] PRN Reason: Protocol Last Admin: 08/28/17 08:46 Dose: 250 mls/hr Loratadine (Claritin) 10 mg PO DAILY [facility] Last Admin: 08/28/17 08:42 Dose: 10 mg Methylprednisolone (Solu-Medrol) 60 mg IV Q8 [facility] Last Admin: 08/28/17 08:45 Dose: 60 mg Metoprolol Succinate (Toprol Xl) 25 mg PO DAILY [facility] Last Admin: 08/28/17 08:43 Dose: 25 mg Mirtazapine (Remeron) 30 mg PO HS [facility] Last Admin: 08/27/17 23:47 Dose: 30 mg Ondansetron HCl (Zofran Odt) 4 mg PO Q8H PRN PRN Reason: Nausea/Vomiting Last Admin: 08/27/17 05:35 Dose: 4 mg Pantoprazole Sodium (Protonix Ec Tab) 40 mg PO DAILY [facility] Last Admin: 08/28/17 08:46 Dose: 40 mg - Labs Labs: 08/28/17 04:30 08/28/17 04:30 PT 12.8 Seconds (9.8-13.1) 08/27/17 01:17 INR 1.2 (0.9-1.2) 08/27/17 01:17 APTT 24.1 Seconds (25.6-37.1) L 08/27/17 01:17 - Constitutional Appears: In Acute Distress, Older Than Stated Age, Chronically Ill - Head Exam Head Exam: ATRAUMATIC, NORMAL INSPECTION, NORMOCEPHALIC - Eye Exam Eye Exam: EOMI, Normal appearance Pupil Exam: NORMAL ACCOMODATION - ENT Exam ENT Exam: Mucous Membranes Moist, Normal External Ear Exam - Neck Exam Neck Exam: Full ROM. absent: Meningismus - Respiratory Exam Respiratory Exam: Accessory Muscle Use, Decreased Breath Sounds, Rales, Rhonchi , Wheezes, Respiratory Distress - Cardiovascular Exam Cardiovascular Exam: REGULAR RHYTHM, +S1, +S2 - GI/Abdominal Exam GI & Abdominal Exam: Soft, Normal Bowel Sounds. absent: Tenderness - Extremities Exam Extremities Exam: Normal Capillary Refill. absent: Calf Tenderness, Pedal Edema - Neurological Exam Neurological Exam: Alert, Awake, Oriented x3 - Psychiatric Exam Psychiatric exam: Flat Affect - Skin Skin Exam: Dry, Normal Color, Warm Assessment and Plan (1) COPD exacerbation Status: Acute (2) RA (rheumatoid arthritis) Status: Chronic (3) Acute exacerbation of CHF (congestive heart failure) Status: Acute (4) Severe obesity (BMI 35.0-35.9 with comorbidity) Status: Chronic - Assessment and Plan (Free Text) Assessment: 61 y/o female , well known to the Hospitalist team bec of multiple Hospital admission, returns bec of SOB. Pt has a hx of COPD, HTN, CHF, CAD, RA/SLE, CVA , Anxiety and Depression. (1) Acute exaerbation of COPD (chronic obstructive pulmonary disease)/Asthma History of Moderate persistent Asthma -initially paced on NRBM in the ED- changed to Oxygen per [place] -Cont duonebs standing + PRN - cont IV solumedrol 60 mg IV q 8 - Dr Thomas ( Pulm) consulted - pt is still short of breath, still with rhonchi and wheezing, will admit pt and cont treatment - cont IV Azithro 2. . CHF, acute on chronic, diastolic dysfunction, EF 60% continue Furosemide and Toprol elavted proBNP on admission 3. RA and SLE Cont Plaquenil and Methotrexate Continue Folic Acid 4. CAD stable cont ASA, Plavix, statin, BB 5. Obesity BMI 35 (6) DVT prophylaxis Status: Acute Lovenox
--- NOTE | 2017-08-28 14:32 | CP.PCM.PN ---
Subjective - Date & Time of Evaluation Date of Evaluation: 08/28/17 Time of Evaluation: 11:00 - Subjective Subjective: F/U COPD Exacerbation. no AD, smiling , SOB on mild exertion, on NC 2Lm Objective - Vital Signs/Intake and Output Vital Signs (last 24 hours): Temp Pulse Resp BP Pulse Ox 97.8 F 64 30 H 121/70 90 L 08/28/17 12:00 08/28/17 12:00 08/28/17 12:00 08/28/17 12:00 08/28/17 12:00 Intake and Output: 08/28/17 08/28/17 06:59 18:59 Intake Total 730 Balance 730 - Medications Medications: Current Medications Acetaminophen (Tylenol 325mg Tab) 650 mg PO Q6 PRN PRN Reason: Fever >100.4 F Albuterol/Ipratropium (Duoneb 3 Mg/0.5 Mg (3 Ml) Ud) 3 ml INH Q1 PRN PRN Reason: Shortness of Breath Albuterol/Ipratropium (Duoneb 3 Mg/0.5 Mg (3 Ml) Ud) 3 ml INH RQ4 [place] Artificial Tears (Artificial Tears) 2 drop OU Q6 PRN PRN Reason: Dry eyes Last Admin: 08/28/17 08:41 Dose: 2 drop Aspirin (Aspirin Chewable) 81 mg PO DAILY [facility] Last Admin: 08/28/17 08:42 Dose: 81 mg Atorvastatin Calcium (Lipitor) 10 mg PO DAILY [facility] Last Admin: 08/28/17 08:42 Dose: 10 mg Clopidogrel Bisulfate (Plavix) 75 mg PO DAILY [facility] Last Admin: 08/28/17 08:44 Dose: 75 mg Escitalopram Oxalate (Lexapro) 10 mg PO DAILY [facility] Last Admin: 08/28/17 08:42 Dose: 10 mg Famotidine (Pepcid) 20 mg PO Q12 [facility] Last Admin: 08/27/17 21:48 Dose: 20 mg Folic Acid (Folic Acid) 1 mg PO DAILY [facility] Last Admin: 08/28/17 08:42 Dose: 1 mg Home Med (Ropinirole Hcl [Ropinirole Hcl]) 1 mg PO [facility] Hydroxychloroquine Sulfate (Plaquenil) 200 mg PO Q12H [facility] PRN Reason: Protocol Last Admin: 08/28/17 14:14 Dose: 200 mg Azithromycin 500 mg/ Sodium (Chloride) 250 mls @ 250 mls/hr IVPB DAILY [facility] PRN Reason: Protocol Last Admin: 08/28/17 08:46 Dose: 250 mls/hr Loratadine (Claritin) 10 mg PO DAILY [facility] Last Admin: 08/28/17 08:42 Dose: 10 mg Methylprednisolone (Solu-Medrol) 60 mg IV Q8 [facility] Last Admin: 08/28/17 08:45 Dose: 60 mg Metoprolol Succinate (Toprol Xl) 25 mg PO DAILY [facility] Last Admin: 08/28/17 08:43 Dose: 25 mg Mirtazapine (Remeron) 30 mg PO HS [facility] Last Admin: 08/27/17 23:47 Dose: 30 mg Ondansetron HCl (Zofran Odt) 4 mg PO Q8H PRN PRN Reason: Nausea/Vomiting Last Admin: 08/27/17 05:35 Dose: 4 mg Pantoprazole Sodium (Protonix Ec Tab) 40 mg PO DAILY [facility] Last Admin: 08/28/17 08:46 Dose: 40 mg - Labs Labs: 08/28/17 04:30 08/28/17 04:30 PT 12.8 Seconds (9.8-13.1) 08/27/17 01:17 INR 1.2 (0.9-1.2) 08/27/17 01:17 APTT 24.1 Seconds (25.6-37.1) L 08/27/17 01:17 - Constitutional Appears: Chronically Ill - Head Exam Head Exam: NORMAL INSPECTION - Eye Exam Eye Exam: PERRL - ENT Exam ENT Exam: Normal Exam - Neck Exam Neck Exam: Normal Inspection - Respiratory Exam Respiratory Exam: Decreased Breath Sounds (b/l), Rhonchi (scattered), Wheezes ( scattered) - Cardiovascular Exam Cardiovascular Exam: REGULAR RHYTHM - GI/Abdominal Exam GI & Abdominal Exam: Soft, Normal Bowel Sounds - Extremities Exam Additional comments: Trace edema - Back Exam Back Exam: NORMAL INSPECTION - Neurological Exam Neurological Exam: Alert, CN II-XII Intact, Oriented x3 Additional comments: No focal motor/sensory deficit, generalized weakness. - Psychiatric Exam Psychiatric exam: Normal Affect - Skin Skin Exam: Warm Assessment and Plan (1) COPD exacerbation Status: Acute (2) CHF (congestive heart failure) Status: Acute (3) RA (rheumatoid arthritis) Status: Chronic (4) OLIVIA (obstructive sleep apnea) Status: Chronic (5) SLE (systemic lupus erythematosus) Status: Chronic (6) Pulmonary HTN Status: Chronic - Assessment and Plan (Free Text) Plan: continue O2 , CPAP , DuoNeb and rest of treatment
[2017-08-28] MEDS: Enoxaparin 40 mg Syringe SC SCH (17:57)
[2017-08-29] MEDS: Albuterol-Ipratrop 3 mg / 0.5 (3 ml) UD INH SCH ×6 (05:30→23:40)
[2017-08-29 05:44] LABS: HEMOGLOBIN 8.8 g/dL (12.0-16.0); MEAN CELL VOLUME 95.8 fl (81.0-99.0); MEAN CORPUSCULAR HEMOGLOBIN 29.4 pg (27.0-31.0); MEAN CORPUSCULAR HGB CONC 30.7 g/dL (33.0-37.0); RBC 2.99 Mil/uL (3.80-5.20); RED CELL DISTRIBUTION WIDTH 24.3 % (11.5-14.5); WHITE BLOOD COUNT 8.4 K/uL (4.8-10.8)
[2017-08-29 06:00] LABS: CALCIUM 8.4 mg/dL (8.4-10.2)
[2017-08-29] MEDS: Enoxaparin 40 mg Syringe SC SCH (08:36)
[2017-08-29] MEDS: Pantoprazole 40 mg EC Tab PO SCH (08:37)
[2017-08-29] MEDS: Metoprolol Succinate 25 mg XL Tab PO SCH (08:37)
[2017-08-29] MEDS: Azithromycin 500 MG in Sodium Chloride 0.9% 250 ML IVPB SCH (08:43)
[2017-08-29] MEDS: Artificial Tears Opht Soln OU PRN (08:45)
--- NOTE | 2017-08-29 11:19 | CP.PCM.PN ---
Subjective - Date & Time of Evaluation Date of Evaluation: 08/29/17 Time of Evaluation: 11:00 - Subjective Subjective: Pt is afebrile still with episodes of paroxysm of cough , tacypnea and SOB but better than yesterday + wheezing denies CP no abd pain Objective - Vital Signs/Intake and Output Vital Signs (last 24 hours): Temp Pulse Resp BP Pulse Ox 97.9 F 62 26 H 96/74 L 100 08/29/17 08:00 08/29/17 10:00 08/29/17 10:00 08/29/17 10:00 08/29/17 10:00 Intake and Output: 08/29/17 08/29/17 06:59 18:59 Intake Total 490 Output Total 100 Balance 390 - Medications Medications: Current Medications Acetaminophen (Tylenol 325mg Tab) 650 mg PO Q6 PRN PRN Reason: Fever >100.4 F Albuterol/Ipratropium (Duoneb 3 Mg/0.5 Mg (3 Ml) Ud) 3 ml INH Q1 PRN PRN Reason: Shortness of Breath Albuterol/Ipratropium (Duoneb 3 Mg/0.5 Mg (3 Ml) Ud) 3 ml INH RQ4 [facility] Last Admin: 08/29/17 07:48 Dose: 3 ml Artificial Tears (Artificial Tears) 2 drop OU Q6 PRN PRN Reason: Dry eyes Last Admin: 08/29/17 08:45 Dose: 2 drop Aspirin (Aspirin Chewable) 81 mg PO DAILY [facility] Last Admin: 08/29/17 08:36 Dose: 81 mg Atorvastatin Calcium (Lipitor) 10 mg PO DAILY [facility] Last Admin: 08/29/17 08:36 Dose: 10 mg Clopidogrel Bisulfate (Plavix) 75 mg PO DAILY [facility] Last Admin: 08/29/17 08:36 Dose: 75 mg Enoxaparin Sodium (Lovenox) 40 mg SC DAILY [facility] PRN Reason: Protocol Last Admin: 08/29/17 08:36 Dose: 40 mg Escitalopram Oxalate (Lexapro) 10 mg PO DAILY [facility] Last Admin: 08/29/17 08:36 Dose: 10 mg Folic Acid (Folic Acid) 1 mg PO DAILY [facility] Last Admin: 08/29/17 08:36 Dose: 1 mg Home Med (Ropinirole Hcl [Ropinirole Hcl]) 1 mg PO [facility] Hydroxychloroquine Sulfate (Plaquenil) 200 mg PO Q12H [facility] PRN Reason: Protocol Last Admin: 08/29/17 01:49 Dose: 200 mg Azithromycin 500 mg/ Sodium (Chloride) 250 mls @ 250 mls/hr IVPB DAILY [facility] PRN Reason: Protocol Last Admin: 08/29/17 08:43 Dose: 250 mls/hr Loratadine (Claritin) 10 mg PO DAILY [facility] Last Admin: 08/29/17 08:36 Dose: 10 mg Methylprednisolone (Solu-Medrol) 60 mg IV Q8 [facility] Last Admin: 08/29/17 08:42 Dose: 60 mg Metoprolol Succinate (Toprol Xl) 25 mg PO DAILY [facility] Last Admin: 08/29/17 08:37 Dose: 25 mg Mirtazapine (Remeron) 30 mg PO HS [facility] Last Admin: 08/29/17 00:11 Dose: 30 mg Ondansetron HCl (Zofran Odt) 4 mg PO Q8H PRN PRN Reason: Nausea/Vomiting Last Admin: 08/27/17 05:35 Dose: 4 mg Pantoprazole Sodium (Protonix Ec Tab) 40 mg PO DAILY [facility] Last Admin: 08/29/17 08:37 Dose: 40 mg - Labs Labs: 08/29/17 04:20 08/29/17 04:20 PT 12.8 Seconds (9.8-13.1) 08/27/17 01:17 INR 1.2 (0.9-1.2) 08/27/17 01:17 APTT 24.1 Seconds (25.6-37.1) L 08/27/17 01:17 - Constitutional Appears: In Acute Distress, Older Than Stated Age, Chronically Ill - Head Exam Head Exam: ATRAUMATIC, NORMAL INSPECTION, NORMOCEPHALIC - Eye Exam Eye Exam: EOMI, Normal appearance Pupil Exam: NORMAL ACCOMODATION - ENT Exam ENT Exam: Mucous Membranes Moist, Normal External Ear Exam - Neck Exam Neck Exam: Full ROM. absent: Meningismus - Respiratory Exam Respiratory Exam: Accessory Muscle Use, Decreased Breath Sounds, Rales, Rhonchi , Wheezes - Cardiovascular Exam Cardiovascular Exam: REGULAR RHYTHM, +S1, +S2 - GI/Abdominal Exam GI & Abdominal Exam: Soft, Normal Bowel Sounds. absent: Tenderness - Extremities Exam Extremities Exam: Normal Capillary Refill. absent: Calf Tenderness, Pedal Edema - Neurological Exam Neurological Exam: Alert, Awake, Oriented x3 - Psychiatric Exam Psychiatric exam: Flat Affect - Skin Skin Exam: Dry, Normal Color, Warm Assessment and Plan (1) COPD exacerbation Status: Acute (2) RA (rheumatoid arthritis) Status: Chronic (3) Acute exacerbation of CHF (congestive heart failure) Status: Acute (4) Severe obesity (BMI 35.0-35.9 with comorbidity) Status: Chronic - Assessment and Plan (Free Text) Assessment: 61 y/o female , well known to the Hospitalist team bec of multiple Hospital admission, returns bec of SOB. Pt has a hx of COPD, HTN, CHF, CAD, RA/SLE, CVA , Anxiety and Depression. In the ED , the pt was noted to be tachypneic, in resp distress and was placed om 100% NRBM. She was started on Nebulizer treatments and IV Solumedrol and admitted to ICU. Pulmonary - Dr Thomas consulted. (1) Acute exacerbation of COPD (chronic obstructive pulmonary disease)/Asthma History of Moderate persistent Asthma -initially placed on NRBM in the ED- changed to Oxygen per NC -Cont duonebs standing + PRN - cont IV solumedrol , decrease to 40 mg IV q 8 - Dr Thomas ( Pulm) consulted - pt is still short of breath, still with rhonchi and wheezing, and tachypnea - cont IV Azithro - Physical therapy consult - check saturation on exertion 2. . CHF, acute on chronic, diastolic dysfunction, EF 60% continue Toprol hold Lasix , will give prn ( Crea went up) elevated proBNP on admission 3. Acute Kidney Injury on CKD stage III - hold Lasix for now - monitor 4. RA and SLE Cont Plaquenil and Methotrexate Continue Folic Acid 5. CAD stable cont ASA, Plavix, statin, BB 6. Obesity BMI 35 DVT prophylaxis Status: Acute Lovenox
[2017-08-29] MEDS ORDERED: Sodium Chloride 3% for Inhalation 4 ML VIAL.NEB IH PRN (12:38)
--- NOTE | 2017-08-29 16:03 | CP.PCM.PN ---
Subjective - Date & Time of Evaluation Date of Evaluation: 08/29/17 Time of Evaluation: 11:40 - Subjective Subjective: F/U COPD Exacerbation, CHF Pt awake, no A/D, no SOB at rest with NC 3 L/M, O2 Sat 100 %. Nurse refers she have [place]BOLL[place]. Objective - Vital Signs/Intake and Output Vital Signs (last 24 hours): Temp Pulse Resp BP Pulse Ox 98.2 F 63 28 H 117/77 97 08/29/17 12:00 08/29/17 14:00 08/29/17 14:00 08/29/17 14:00 08/29/17 14:00 Intake and Output: 08/29/17 08/29/17 06:59 18:59 Intake Total 490 Output Total 100 Balance 390 - Medications Medications: Current Medications Acetaminophen (Tylenol 325mg Tab) 650 mg PO Q6 PRN PRN Reason: Fever >100.4 F Albuterol/Ipratropium (Duoneb 3 Mg/0.5 Mg (3 Ml) Ud) 3 ml INH Q1 PRN PRN Reason: Shortness of Breath Albuterol/Ipratropium (Duoneb 3 Mg/0.5 Mg (3 Ml) Ud) 3 ml INH RQ4 [facility] Last Admin: 08/29/17 15:01 Dose: 3 ml Artificial Tears (Artificial Tears) 2 drop OU Q6 PRN PRN Reason: Dry eyes Last Admin: 08/29/17 08:45 Dose: 2 drop Aspirin (Aspirin Chewable) 81 mg PO DAILY [facility] Last Admin: 08/29/17 08:36 Dose: 81 mg Atorvastatin Calcium (Lipitor) 10 mg PO DAILY [facility] Last Admin: 08/29/17 08:36 Dose: 10 mg Clopidogrel Bisulfate (Plavix) 75 mg PO DAILY [facility] Last Admin: 08/29/17 08:36 Dose: 75 mg Enoxaparin Sodium (Lovenox) 40 mg SC DAILY [facility] PRN Reason: Protocol Last Admin: 08/29/17 08:36 Dose: 40 mg Escitalopram Oxalate (Lexapro) 10 mg PO DAILY [facility] Last Admin: 08/29/17 08:36 Dose: 10 mg Folic Acid (Folic Acid) 1 mg PO DAILY [facility] Last Admin: 08/29/17 08:36 Dose: 1 mg Home Med (Ropinirole Hcl [Ropinirole Hcl]) 1 mg PO [facility] Hydroxychloroquine Sulfate (Plaquenil) 200 mg PO Q12H [facility] PRN Reason: Protocol Last Admin: 08/29/17 14:11 Dose: 200 mg Azithromycin 500 mg/ Sodium (Chloride) 250 mls @ 250 mls/hr IVPB DAILY [facility] PRN Reason: Protocol Last Admin: 08/29/17 08:43 Dose: 250 mls/hr Loratadine (Claritin) 10 mg PO DAILY [facility] Last Admin: 08/29/17 08:36 Dose: 10 mg Methylprednisolone (Solu-Medrol) 40 mg IVP Q8 [facility] Metoprolol Succinate (Toprol Xl) 25 mg PO DAILY [facility] Last Admin: 08/29/17 08:37 Dose: 25 mg Mirtazapine (Remeron) 30 mg PO HS [facility] Last Admin: 08/29/17 00:11 Dose: 30 mg Ondansetron HCl (Zofran Odt) 4 mg PO Q8H PRN PRN Reason: Nausea/Vomiting Last Admin: 08/27/17 05:35 Dose: 4 mg Pantoprazole Sodium (Protonix Ec Tab) 40 mg PO DAILY [facility] Last Admin: 08/29/17 08:37 Dose: 40 mg - Labs Labs: 08/29/17 04:20 08/29/17 04:20 PT 12.8 Seconds (9.8-13.1) 08/27/17 01:17 INR 1.2 (0.9-1.2) 08/27/17 01:17 APTT 24.1 Seconds (25.6-37.1) L 08/27/17 01:17 - Constitutional Appears: Chronically Ill - Head Exam Head Exam: NORMAL INSPECTION - Eye Exam Eye Exam: PERRL - ENT Exam ENT Exam: Normal Exam - Neck Exam Neck Exam: Normal Inspection - Respiratory Exam Respiratory Exam: Decreased Breath Sounds (at bases), Rhonchi (scattered), Wheezes - Cardiovascular Exam Cardiovascular Exam: REGULAR RHYTHM - GI/Abdominal Exam GI & Abdominal Exam: Soft, Normal Bowel Sounds - Extremities Exam Extremities Exam: Normal Inspection - Back Exam Back Exam: NORMAL INSPECTION - Neurological Exam Neurological Exam: Alert, Oriented x3 Additional comments: No focal motor sensory deficit, generalized weakness. - Skin Skin Exam: Warm Assessment and Plan (1) COPD exacerbation Status: Acute (2) CHF (congestive heart failure) Status: Acute (3) RA (rheumatoid arthritis) Status: Chronic (4) OLIVIA (obstructive sleep apnea) Status: Chronic (5) SLE (systemic lupus erythematosus) Status: Chronic (6) Pulmonary HTN Status: Chronic - Assessment and Plan (Free Text) Plan: Jh Steroids, f/u Sputum C-S.
[2017-08-29] MEDS: MethylPREDNISolone 40 mg Vial IVP SCH (17:07)
[2017-08-30] MEDS: MethylPREDNISolone 40 mg Vial IVP SCH ×2 (02:08→08:20)
[2017-08-30] MEDS: Albuterol-Ipratrop 3 mg / 0.5 (3 ml) UD INH SCH ×4 (03:29→15:36)
[2017-08-30 05:35] LABS: HEMOGLOBIN 9.4 g/dL (12.0-16.0); MEAN CELL VOLUME 96.7 fl (81.0-99.0); MEAN CORPUSCULAR HEMOGLOBIN 29.1 pg (27.0-31.0); MEAN CORPUSCULAR HGB CONC 30.1 g/dL (33.0-37.0); RBC 3.22 Mil/uL (3.80-5.20); RED CELL DISTRIBUTION WIDTH 24.8 % (11.5-14.5); WHITE BLOOD COUNT 7.8 K/uL (4.8-10.8)
[2017-08-30 05:54] LABS: CALCIUM 8.4 mg/dL (8.4-10.2)
[2017-08-30] MEDS: Enoxaparin 40 mg Syringe SC SCH (08:19)
[2017-08-30] MEDS: Pantoprazole 40 mg EC Tab PO SCH (08:20)
[2017-08-30] MEDS: Metoprolol Succinate 25 mg XL Tab PO SCH (08:21)
[2017-08-30] MEDS: Azithromycin 500 MG in Sodium Chloride 0.9% 250 ML IVPB SCH (08:23)
--- NOTE | 2017-08-30 11:24 | CP.PCM.DIS ---
Provider - Provider Date of Admission: 08/28/17 14:48 Attending physician: Gunjan Bonilla MD Primary care physician: Deniz Albright MD Consults: pulmonary consult Time Spent in preparation of Discharge (in minutes): 15 Hospital Course - Lab Results Lab Results: Micro Results 08/27/17 12:20 Naris MRSA Culture (Admit) - Final MRSA NOT DETECTED 08/27/17 12:20 Urine,Clean Catch Urine Culture - Final No Growth (<1,000 CFU/ML) Most Recent Lab Values WBC 7.8 K/uL (4.8-10.8) 08/30/17 05:05 RBC 3.22 Mil/uL (3.80-5.20) L 08/30/17 05:05 Hgb 9.4 g/dL (12.0-16.0) L 08/30/17 05:05 Hct 31.2 % (34.0-47.0) L 08/30/17 05:05 MCV 96.7 fl (81.0-99.0) 08/30/17 05:05 MCH 29.1 pg (27.0-31.0) 08/30/17 05:05 MCHC 30.1 g/dL (33.0-37.0) L 08/30/17 05:05 RDW 24.8 % (11.5-14.5) H 08/30/17 05:05 Plt Count 138 K/uL (130-400) 08/30/17 05:05 MPV 9.7 fl (7.2-11.7) 08/28/17 04:30 Neut % (Auto) 82.5 % (50.0-75.0) H 08/28/17 04:30 Lymph % (Auto) 7.2 % (20.0-40.0) L 08/28/17 04:30 [place] % (Auto) 9.5 % (0.0-10.0) 08/28/17 04:30 Eos % (Auto) 0.3 % (0.0-4.0) 08/28/17 04:30 Baso % (Auto) 0.5 % (0.0-2.0) 08/28/17 04:30 Neut # (Auto) 4.5 K/uL (1.8-7.0) 08/28/17 04:30 Lymph # (Auto) 0.4 K/uL (1.0-4.3) L 08/28/17 04:30 [place] # (Auto) 0.5 K/uL (0.0-0.8) 08/28/17 04:30 Eos # (Auto) 0.0 K/uL (0.0-0.7) 08/28/17 04:30 Baso # (Auto) 0.0 K/uL (0.0-0.2) 08/28/17 04:30 Neutrophils % (Manual) 81 % (42-75) H 08/28/17 04:30 Lymphocytes % (Manual) 9 % (20-50) L 08/28/17 04:30 Monocytes % (Manual) 10 % (0-10) 08/28/17 04:30 Nucleated RBC % 4 % (0-0) H 08/28/17 04:30 Platelet Estimate Normal (NORMAL) 08/28/17 04:30 Large Platelets Present 08/28/17 04:30 Polychromasia Slight 08/28/17 04:30 Hypochromasia (manual) Moderate 08/28/17 04:30 Anisocytosis (manual) Moderate 08/28/17 04:30 Schistocytes Slight 08/28/17 04:30 PT 12.8 Seconds (9.8-13.1) 08/27/17 01:17 INR 1.2 (0.9-1.2) 08/27/17 01:17 APTT 24.1 Seconds (25.6-37.1) L 08/27/17 01:17 pCO2 49 mm/Hg (35-45) H 08/27/17 09:58 pO2 89 mm/Hg (80-100) 08/27/17 09:58 HCO3 21.5 mmol/L (21-28) 08/27/17 09:58 ABG pH 7.27 (7.35-7.45) L 08/27/17 09:58 ABG Total CO2 24.0 mmol/L (22-28) 08/27/17 09:58 ABG O2 Saturation 98.7 % (95-98) H 08/27/17 09:58 ABG O2 Content 12.7 ML/dL (15-23) L 08/27/17 09:58 ABG Base Excess -4.4 mmol/L (-2.0-3.0) L 08/27/17 09:58 ABG Hemoglobin 9.3 g/dL (11.7-17.4) L 08/27/17 09:58 ABG Carboxyhemoglobin 2.2 % (0.5-1.5) H 08/27/17 09:58 POC ABG HHb (Measured) 1.3 % (0.0-5.0) 08/27/17 09:58 ABG Methemoglobin 0.7 % (0.0-3.0) 08/27/17 09:58 ABG O2 Capacity 12.9 mL/dL (16-24) L 08/27/17 09:58 Gio Test Yes 08/27/17 09:58 VBG pH 7.26 (7.32-7.43) L 08/27/17 01:40 VBG pCO2 58 mmHg (40-60) 08/27/17 01:40 VBG HCO3 22.0 mmol/L 08/27/17 01:40 VBG Total CO2 27.8 mmol/L (22-28) 08/27/17 01:40 VBG O2 Sat (Calc) 55.7 % (40-65) 08/27/17 01:40 VBG Base Excess -2.1 mmol/L (0.0-2.0) L 08/27/17 01:40 VBG Potassium 4.7 mmol/L (3.6-5.2) 08/27/17 01:40 A-a O2 Difference 57.0 mm/Hg 08/27/17 09:58 Hgb O2 Saturation 95.8 % (95.0-98.0) 08/27/17 09:58 Sodium 141.0 mmol/L (132-148) 08/27/17 01:40 Chloride 110.0 mmol/L (98-107) H 08/27/17 01:40 Glucose 103 mg/dL (65-105) 08/27/17 01:40 Lactate 2.1 mmol/L (0.7-2.1) 08/27/17 01:40 FiO2 29.0 % 08/27/17 09:58 Blood Gas Comments 2l/m nc,rr 08/27/17 09:58 Crit Value Read Back N 08/27/17 09:58 Sodium 141 mmol/l (132-148) 08/30/17 05:05 Potassium 5.2 MMOL/L (3.6-5.0) H 08/30/17 05:05 Chloride 103 mmol/L (98-107) 08/30/17 05:05 Carbon Dioxide 25 mmol/L (22-30) 08/30/17 05:05 Anion Gap 18 (10-20) 08/30/17 05:05 BUN 55 mg/dl (7-17) H 08/30/17 05:05 Creatinine 1.7 mg/dl (0.7-1.2) H 08/30/17 05:05 Est GFR ( Amer) 37 08/30/17 05:05 Est GFR (Non-Af Amer) 30 08/30/17 05:05 Random Glucose 136 mg/dL (65-105) H 08/30/17 05:05 Calcium 8.4 mg/dL (8.4-10.2) 08/30/17 05:05 Troponin I 0.0580 ng/mL (0.00-0.120) 08/27/17 01:17 NT-Pro-B Natriuret Pep 6090 pg/ml (0-900) H 08/27/17 01:17 Procalcitonin 0.13 NG/ML (0.19-0.49) L 08/28/17 04:30 Venous Blood Potassium 4.7 mmol/L (3.6-5.2) 08/27/17 01:40 Urine Color Yellow (YELLOW) 08/27/17 12:20 Urine Clarity Slighty-cloudy (Clear) 08/27/17 12:20 Urine pH 6.0 (5.0-8.0) 08/27/17 12:20 Ur Specific [place] 1.013 (1.003-1.030) 08/27/17 12:20 Urine Protein 100 mg/dL (NEGATIVE) 08/27/17 12:20 Urine Glucose (UA) Neg mg/dL (Normal) 08/27/17 12:20 Urine Ketones Negative mg/dL (NEGATIVE) 08/27/17 12:20 Urine Blood Negative (NEGATIVE) 08/27/17 12:20 Urine Nitrate Negative (NEGATIVE) 08/27/17 12:20 Urine Bilirubin Negative (NEGATIVE) 08/27/17 12:20 Urine Urobilinogen 0.2-1.0 mg/dL (0.2-1.0) 08/27/17 12:20 Ur Leukocyte Esterase Neg [place]/uL (Negative) 08/27/17 12:20 Urine RBC (Auto) 3 /hpf (0-3) 08/27/17 12:20 Urine Microscopic WBC 4 /hpf (0-5) 08/27/17 12:20 Ur Squamous Epith Cells 5 /hpf (0-5) 08/27/17 12:20 Amorphous Sediment Rare /ul (<OCC) H 08/27/17 12:20 Urine Bacteria Rare (<OCC) 08/27/17 12:20 Hyaline Casts 6-10 /hpf (0-2) H 08/27/17 12:20 - Hospital Course Hospital Course: 61 y/o female , well known to the Hospitalist team because of multiple Hospital admission, returns because of SOB. Patient has a hx of COPD, HTN, CHF, CAD, RA/ SLE, CVA, Anxiety and Depression. In the ED , she was noted to be tachypneic, in respiratory distress and was placed on 100% NRBM. She was started on Nebulizer treatments and IV Solumedrol and admitted to ICU. Pulmonary was consulted Dr Thomas . CXR showed no infiltrates. Patient clinically improved and at present back to her baseline, saturating 95- 83 5 on 2 L O2 via NC .Discussed with pulmonary Dr. Thomas .Will discharge patient home on slow caleb of Prednisone PO . Advised patient to remove animals from her home , cats and dogs because her breathing might be exacerbated by an allergic component as well. 1. Acute exacerbation of COPD (chronic obstructive pulmonary disease)/Asthma History of Moderate persistent Asthma initially placed on NRBM and later changed to Oxygen per NC Given Duonebs, Solumedrol IV tappering dose , Zithromax IV CXR showed no infiltrate Pulmonary consulted Clinically improved , back to her baseline,no wheezing Will d/c home on tapering Prednisone dose 2. CHF, acute on chronic, diastolic dysfunction, EF 60% continue Toprol Given Lasix PRN ( Crea went up) elevated proBNP on admission 3. Acute Kidney Injury on CKD stage III lasix PRN 4. RA and SLE Cont Plaquenil and Methotrexate Continue Folic Acid 5. CAD stable cont ASA, Plavix, statin, BB 6. Obesity BMI 35 7. Anemia of chronic disease Hgb 9.4 stable 8. HTN controlled 9. Depression with anxiety on Lexapro and Remeron 10.DVT prophylaxis Lovenox Discharge Exam - Head Exam Head Exam: NORMAL INSPECTION Additional comments: obese, chronically ill, pale - Eye Exam Eye Exam: EOMI, PERRL - ENT Exam ENT Exam: Mucous Membranes Moist, Normal Exam - Neck Exam Neck exam: Normal Inspection - Respiratory Exam Respiratory Exam: Prolonged Expiratory Phase. absent: Wheezes - Cardiovascular Exam Cardiovascular Exam: REGULAR RHYTHM, +S1, +S2. absent: JVD - GI/Abdominal Exam GI & Abdominal Exam: Normal Bowel Sounds, Soft. absent: Distended, Guarding, Rebound, Tenderness - Rectal Exam Rectal Exam: Deferred - Extremities Exam Extremities exam: normal capillary refill, normal inspection - Neurological Exam Neurological exam: Alert, CN II-XII Intact - Psychiatric Exam Psychiatric exam: Flat Affect - Skin Skin Exam: Dry, Pallor Discharge Plan - Discharge Medications Prescriptions: Prednisone [Kiarra] 30 mg PO DAILY #100 tcp - Follow Up Plan Condition: IMPROVED Disposition: HOME/ ROUTINE Patient education suggested?: Yes Instructions: Exacerbation of COPD (DC) Referrals: Deniz Albright MD [Primary Care Provider] -
[2017-08-30 12:31] VITALS: BP 118/78; PULSE 59; RESP 27; TEMP 98.3; O2SAT 90
--- NOTE | 2017-08-30 14:25 | CP.PCM.PN ---
Subjective - Date & Time of Evaluation Date of Evaluation: 08/30/17 Time of Evaluation: 10:50 - Subjective Subjective: F/U COPD Exacerbation No A.D, no SOB, no cough. Objective - Vital Signs/Intake and Output Vital Signs (last 24 hours): Temp Pulse Resp BP Pulse Ox 98.3 F 59 L 27 H 118/78 90 L 08/30/17 12:00 08/30/17 12:00 08/30/17 12:00 08/30/17 12:00 08/30/17 12:00 Intake and Output: 08/30/17 08/30/17 06:59 18:59 Intake Total 60 490 Output Total 300 Balance -240 490 - Medications Medications: Current Medications Acetaminophen (Tylenol 325mg Tab) 650 mg PO Q6 PRN PRN Reason: Fever >100.4 F Last Admin: 08/30/17 08:15 Dose: 650 mg Albuterol/Ipratropium (Duoneb 3 Mg/0.5 Mg (3 Ml) Ud) 3 ml INH Q1 PRN PRN Reason: Shortness of Breath Albuterol/Ipratropium (Duoneb 3 Mg/0.5 Mg (3 Ml) Ud) 3 ml INH RQ4 [facility] Last Admin: 08/30/17 11:39 Dose: 3 ml Artificial Tears (Artificial Tears) 2 drop OU Q6 PRN PRN Reason: Dry eyes Last Admin: 08/29/17 08:45 Dose: 2 drop Aspirin (Aspirin Chewable) 81 mg PO DAILY [facility] Last Admin: 08/30/17 08:18 Dose: 81 mg Atorvastatin Calcium (Lipitor) 10 mg PO DAILY [facility] Last Admin: 08/30/17 08:19 Dose: 10 mg Clopidogrel Bisulfate (Plavix) 75 mg PO DAILY [facility] Last Admin: 08/30/17 08:19 Dose: 75 mg Enoxaparin Sodium (Lovenox) 40 mg SC DAILY [facility] PRN Reason: Protocol Last Admin: 08/30/17 08:19 Dose: 40 mg Escitalopram Oxalate (Lexapro) 10 mg PO DAILY [facility] Last Admin: 08/30/17 08:18 Dose: 10 mg Folic Acid (Folic Acid) 1 mg PO DAILY [facility] Last Admin: 08/30/17 08:18 Dose: 1 mg Home Med (Ropinirole Hcl [Ropinirole Hcl]) 1 mg PO [facility] Hydroxychloroquine Sulfate (Plaquenil) 200 mg PO Q12H [place] PRN Reason: Protocol Last Admin: 08/30/17 04:54 Dose: 200 mg Azithromycin 500 mg/ Sodium (Chloride) 250 mls @ 250 mls/hr IVPB DAILY [facility] PRN Reason: Protocol Last Admin: 08/30/17 08:23 Dose: 250 mls/hr Loratadine (Claritin) 10 mg PO DAILY [facility] Last Admin: 08/30/17 08:18 Dose: 10 mg Methylprednisolone (Solu-Medrol) 40 mg IVP Q8 [facility] Last Admin: 08/30/17 08:20 Dose: 40 mg Metoprolol Succinate (Toprol Xl) 25 mg PO DAILY [facility] Last Admin: 08/30/17 08:21 Dose: 25 mg Mirtazapine (Remeron) 30 mg PO HS [facility] Last Admin: 08/29/17 21:12 Dose: 30 mg Ondansetron HCl (Zofran Odt) 4 mg PO Q8H PRN PRN Reason: Nausea/Vomiting Last Admin: 08/27/17 05:35 Dose: 4 mg Pantoprazole Sodium (Protonix Ec Tab) 40 mg PO DAILY [facility] Last Admin: 08/30/17 08:20 Dose: 40 mg - Labs Labs: 08/30/17 05:05 08/30/17 05:05 PT 12.8 Seconds (9.8-13.1) 08/27/17 01:17 INR 1.2 (0.9-1.2) 08/27/17 01:17 APTT 24.1 Seconds (25.6-37.1) L 08/27/17 01:17 - Constitutional Appears: Chronically Ill - Head Exam Head Exam: NORMAL INSPECTION - Eye Exam Eye Exam: PERRL - ENT Exam ENT Exam: Normal Exam - Neck Exam Neck Exam: Normal Inspection - Respiratory Exam Respiratory Exam: Decreased Breath Sounds (at bases) - Cardiovascular Exam Cardiovascular Exam: REGULAR RHYTHM - GI/Abdominal Exam GI & Abdominal Exam: Soft, Normal Bowel Sounds - Extremities Exam Extremities Exam: Normal Inspection - Back Exam Back Exam: NORMAL INSPECTION - Neurological Exam Neurological Exam: Alert, CN II-XII Intact, Oriented x3 Additional comments: No focal motor/sensory deficit. - Psychiatric Exam Psychiatric exam: Normal Affect - Skin Skin Exam: Warm Assessment and Plan (1) COPD exacerbation Status: Acute (2) CHF (congestive heart failure) Status: Acute (3) RA (rheumatoid arthritis) Status: Chronic (4) OLIVIA (obstructive sleep apnea) Status: Chronic (5) SLE (systemic lupus erythematosus) Status: Chronic (6) Pulmonary HTN Status: Chronic - Assessment and Plan (Free Text) Plan: Pulmonary clear for discharged, discussed with attendant.
== END 2017-08-30 16:00 | disposition home or self-care (01) | DRG 544 ==
LOC: H.ER 00:11 → H.ERHOLD 02:13 → H.ICU/CCU 09:22 → OBSVTOIN 08-28 14:48
PROVIDERS: ADMIT Internal Medicine; ATTEND Internal Medicine
DX: I13.0 Hypertensive heart and chronic kidney disease with heart failure and stage 1 through stage 4 chronic kidney disease, or unspecified chronic kidney disease (principal); I50.33 Acute on chronic diastolic (congestive) heart failure; N17.9 Acute kidney failure, unspecified; J44.1 Chronic obstructive pulmonary disease with (acute) exacerbation; M32.9 Systemic lupus erythematosus, unspecified; D69.59 Other secondary thrombocytopenia; N18.3 Chronic kidney disease, stage 3 (moderate); G47.33 Obstructive sleep apnea (adult) (pediatric); I27.21 Secondary pulmonary arterial hypertension; M06.9 Rheumatoid arthritis, unspecified; Z95.5 Presence of coronary angioplasty implant and graft; I25.10 Atherosclerotic heart disease of native coronary artery without angina pectoris; E66.01 Morbid (severe) obesity due to excess calories; Z68.35 Body mass index [BMI] 35.0-35.9, adult; J45.40 Moderate persistent asthma, uncomplicated; G89.29 Other chronic pain; K29.70 Gastritis, unspecified, without bleeding; E78.00 Pure hypercholesterolemia, unspecified; M81.0 Age-related osteoporosis without current pathological fracture; E78.5 Hyperlipidemia, unspecified; Z99.81 Dependence on supplemental oxygen; K21.9 Gastro-esophageal reflux disease without esophagitis; F41.8 Other specified anxiety disorders; D63.8 Anemia in other chronic diseases classified elsewhere; Z86.73 Personal history of transient ischemic attack (TIA), and cerebral infarction without residual deficits

== ENCOUNTER 2017-09-23 11:25 | Inpatient (IN) | payer MEDICAID ==
[2017-09-23 11:29] VITALS: BMI 35.2
[2017-09-23] MEDS ORDERED: Famotidine 20mg/50ml 20 MG/50 ML BAG IVPB STA (12:20)
[2017-09-23] MEDS ORDERED: DiphenhydrAMINE 50 mg/ml Inj IVP STA ×2 (12:20→17:47)
[2017-09-23] MEDS ORDERED: Iohexol 240 (50 ml) PO ONE (12:27)
[2017-09-23] MEDS ORDERED: DiphenhydrAMINE 50 mg/ml Inj ONE (12:45)
[2017-09-23] MEDS ORDERED: Iohexol 240 (50 ml) ONE (12:46)
[2017-09-23] MEDS ORDERED: Famotidine 20mg/50ml 20 MG/50 ML BAG IVPB ONE (12:46)
[2017-09-23] MEDS ORDERED: Alum-Mag Hydrox-Simethicone Susp (30 mL) PO STA (14:31)
[2017-09-23 14:33] LABS: ALB/GLOB RATIO 1.2 (1.0-2.1); ALBUMIN 4.1 g/dL (3.5-5.0); TROPONIN I 0.114 ng/mL (0.00-0.120)
--- NOTE | 2017-09-23 15:03 | US ---
HISTORY: ruq pain r/o cholecystitis COMPARISON: None. TECHNIQUE: Sonographic evaluation of the right upper quadrant of the abdomen. FINDINGS: LIVER: Measures cm in length. Normal echogenicity of the liver parenchyma. No mass. No intrahepatic bile duct dilatation. GALLBLADDER: No gallstones. Pericholecystic fluid and gallbladder wall thickening. Correlate clinically for acute cholecystitis.. COMMON BILE DUCT: Measures mm. No stones. No dilatation. PANCREAS: Unremarkable as visualized. No mass. No ductal dilatation. RIGHT KIDNEY: Measures cm in length. Normal echogenicity. No calculus, mass, or hydronephrosis. AORTA: No aneurysmal dilatation. IVC: Unremarkable. OTHER FINDINGS: None . IMPRESSION: Pericholecystic fluid and gallbladder wall thickening; correlate clinically for acute cholecystitis.
[2017-09-23 15:08] LABS: BASO # 0.2 K/uL (0.0-0.2); BASO % 2.7 % (0.0-2.0); EOS # 0.1 K/uL (0.0-0.7); EOS % 1.3 % (0.0-4.0); HEMOGLOBIN 9.9 g/dL (12.0-16.0); LYMPH # 0.7 K/uL (1.0-4.3); LYMPH % 10.3 % (20.0-40.0); MEAN CORPUSCULAR HEMOGLOBIN 27.7 pg (27.0-31.0); MEAN CORPUSCULAR HGB CONC 29.2 g/dL (33.0-37.0); MONO # 1.5 K/uL (0.0-0.8); MONO % 23.1 % (0.0-10.0); NEUT # 4.1 K/uL (1.8-7.0); NEUT % 62.6 % (50.0-75.0); NRBC % 3.4 % (0.0-0.0); PLATELET COUNT 154 K/uL (130-400); RBC 3.57 Mil/uL (3.80-5.20); RED CELL DISTRIBUTION WIDTH 25.4 % (11.5-14.5); WHITE BLOOD COUNT 6.5 K/uL (4.8-10.8)
[2017-09-23 15:14] LABS: CALCIUM 9.2 mg/dL (8.4-10.2)
[2017-09-23 17:03] LABS: SQUAMOUS EPITHIAL 5 /hpf (0-5); URINE BILIRUBIN NEGATIVE (NEGATIVE); URINE BLOOD NEGATIVE (NEGATIVE); URINE CLARITY CLOUDY (Clear); URINE COLOR YELLOW (YELLOW); URINE GLUCOSE (UA) NEG (Normal); URINE LEUKOCYTE ESTERASE TRACE Leu/uL (Negative); URINE PROTEIN 100 mg/dL (NEGATIVE)
[2017-09-23 17:12] LABS: BANDS 2 % (0-2); BASOPHIL 1 % (0-2); EOSINOPHIL 1 % (0-7); LYMPHOCYTE 16 % (20-50); MONOCYTE 15 % (0-10); NEUTROPHIL 62 % (42-75); NUCLEATED RED BLOOD CELL 6 % (0-0); PLATELET ESTIMATE NORMAL (NORMAL); REACTIVE LYMPHOCYTES 3 % (0-0); TOTAL CELLS COUNTED 100
[2017-09-23] MEDS ORDERED: Iodixanol 320 MG/ML 100 ML BOTTLE IV ONE (17:24)
[2017-09-23] MEDS ORDERED: Sodium Chloride 0.9% 50 ML IV ONE (17:24)
--- NOTE | 2017-09-23 19:26 | ED PDOC ---
HPI: Abdomen Time Seen by Provider: 09/23/17 12:43 Chief Complaint (Nursing): GI Problem History Per: Patient (62 y/o female h/o CHF/COPD/RA here for evaluation of abdominal pain/vomiting x 1 day. No fevers/chills/diarrhea noted. Patient has been seen last week for itchy rash on chest wall for which she was to follow up with DR. Zepeda. 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.) Past Medical History Reviewed: Historical Data, Nursing Documentation, Vital Signs Vital Signs: Last Vital Signs Temp 98.0 F 09/23/17 19:30 Pulse 56 L 09/23/17 19:30 Resp 18 09/23/17 19:30 BP 134/71 09/23/17 19:30 Pulse Ox 100 09/23/17 19:49 - Medical History PMH: Anemia, Anxiety, Arthritis, Asthma, Back Problems (chronic back pain), CAD , Cardia Arrhythmia, CHF, COPD, CVA (x3 with left weakness), Depression, Diverticulitis, Gastritis, HTN, Hypercholesterolemia, Osteoporosis, Peripheral Edema, Rheumatoid Arthritis, Sleep Apnea, TIA Denies: HIV, Chronic Kidney Disease, Seizures (denies) - Surgical History Surgical History: Appendectomy, Coronary Stent ([place] [facility] [place]), (x2) Denies: Cholecystectomy - Family History Family History: States: Unknown Family Hx - Immunization History Hx Influenza Vaccination: Yes - Home Medications Home Medications: Ambulatory Orders Medication Instructions Recorded Folic Acid 1 mg PO DAILY #30 tab 07/21/17 Hydroxychloroquine Sulfate 200 mg PO Q12H #60 tablet 07/21/17 [Plaquenil] Meloxicam [Mobic] 7.5 mg PO DAILY #30 tab 07/21/17 guaiFENesin/Dextromethorphan 10 ml PO Q4 PRN #1 bottle 07/21/17 [Robitussin DM] Atorvastatin [Lipitor] 10 mg PO DAILY #30 tab 07/23/17 Clopidogrel [Plavix] 75 mg PO DAILY #30 tab 07/23/17 Escitalopram [Lexapro] 10 mg PO DAILY #30 tab 07/23/17 Metoprolol Succinate XL [Toprol XL] 25 mg PO DAILY #30 tab 07/23/17 Nystatin [Nystatin Oral Susp] 5 ml PO QID #1 bottle 07/23/17 Polyethylene Glycol/Polyvinyl 2 drop OU Q6 PRN #1 bottle 07/23/17 [Artificial Tears] Promethazine/Codeine 10 ml PO Q8 #300 ml 07/23/17 [Phenergan/Codeine Oral Syrup] Aspirin 81 mg PO DAILY #30 tab.chew 07/28/17 Nitroglycerin 0.4 mg SL Q5MIN PRN #30 tab.subl 07/28/17 Ciclopirox/Ure/Camph/Menth/Euc 34.6 ml TP DAILY 08/18/17 [Ciclopirox 8% Treatment Kit] Cyanocobalamin (Vitamin B-12) 1 each NS QWK 08/18/17 [Nascobal] Famotidine [Heartburn Prevention] 20 mg PO Q12 08/18/17 Loratadine [Claritin] 10 mg PO DAILY 08/18/17 Mirtazapine [Remeron] 30 mg PO HS 08/18/17 Mupirocin 2% Ointment [Bactroban 15 gm TOP BID 08/18/17 Ointment] Pantoprazole [Protonix EC Tab] 40 mg PO PRN PRN 08/18/17 Ropinirole HCl 1 mg PO HS 08/18/17 raNITIdine [Zantac Soln 5ml] 150 mg PO BID PRN 08/18/17 Prednisone [Kiarra] 30 mg PO DAILY #100 tcp 08/30/17 Famotidine [Pepcid] 20 mg PO BID #20 tab 09/12/17 - Allergies Allergies/Adverse Reactions: Allergies Allergy/AdvReac Type Severity Reaction Status Date / Time No Known Allergies Allergy Verified 09/12/17 11:35 Review of Systems ROS Statement: Except As Marked, All Systems Reviewed And Found Negative Physical Exam - Reviewed Nursing Documentation Reviewed: Yes Vital Signs Reviewed: Yes - Physical Exam Appears: Positive for: Well, Non-toxic, No Acute Distress Head Exam: Positive for: ATRAUMATIC, NORMAL INSPECTION, NORMOCEPHALIC Skin: Positive for: Normal Color, Warm, DRY Eye Exam: Positive for: EOMI, Normal appearance, PERRL ENT: Positive for: Normal ENT Inspection Neck: Positive for: Normal, Painless ROM Cardiovascular/Chest: Positive for: Regular Rate, Rhythm Respiratory: Positive for: CNT, Normal Breath Sounds Gastrointestinal/Abdominal: Positive for: Normal Exam, Soft, Tenderness (RUQ tenderness) Back: Positive for: Normal Inspection Extremity: Positive for: Normal ROM Neurologic/Psych: Positive for: Alert, Oriented - Laboratory Results Result Diagrams: 09/23/17 13:20 09/23/17 14:45 - ECG O2 Sat by Pulse Oximetry: 100 - Progress ED Course And Treament: zofran 4 mg iv x 1 dose pepcid 20 mg iv x 1 dose us gallbladder: IMPRESSION: Pericholecystic fluid and gallbladder wall thickening; correlate clinically for acute cholecystitis. US: ct abd/pelvis: IMPRESSION: 1. Body wall edema, small pleural effusions, ascites and pericholecystic fluid. The above findings could represent CHF, or renal insufficiency. Correlate with clinical findings. Cholecystitis is considered less likely. 2. IVC filter below the renal vein and extending to the right common iliac vein. 3. 2 CM hypervascular region in the central liver. Distended right hepatic vein versus hypervascular liver tumor. 4. Osteopenic compression fractures of the thoracolumbar spine. Thank you for allowing us to participate in the care of your patient. Dictated and Authenticated by: Gwen Ashley MD ZOSYN 3.375GM IV X 1 DOSE D/W SURG RESIDENT. D/W DR. ZEPEDA D/W DR. SOTOMAYOR HOSPITALIST Disposition - Clinical Impression Clinical Impression: Cholecystitis - Patient ED Disposition Is Patient to be Admitted: Yes - Disposition Disposition Time: 20:36 Condition: FAIR - Pt Status Changed To: Hospital Disposition Of: Inpatient - Admit Certification Admit to Inpatient:: After my assessment, the patient will require hospitalization for at least two midnights. This is because of the severity of symptoms shown, intensity of services needed, and/or the medical risk in this patient being treated as an outpatient.
[2017-09-23] MEDS ORDERED: Piperacillin/Tazobact 3.375 GM in Sodium Chloride 0.9% 100 ML IVPB STA (19:27)
[2017-09-23] MEDS ORDERED: Piperacillin/Tazobact 3.375 gm Inj IVPB ONE (19:35)
[2017-09-23 20:29] LABS: VENOUS BLOOD GAS BASE EXCESS -1.1 mmol/L (0.0-2.0); VENOUS BLOOD GAS PCO2 55 mmHg (40-60); VENOUS BLOOD GAS PO2 22 mm/Hg (30-55); VENOUS BLOOD PH 7.29 (7.32-7.43)
[2017-09-23 20:43] LABS: INR 1.4 (0.9-1.2); PARTIAL THROMBOPLASTIN TIME 24.9 Seconds (25.6-37.1); PROTHROMBIN TIME 15.1 Seconds (9.8-13.1)
[2017-09-23] MEDS ORDERED: Lactated Ringer's 1,000 ML IV SCH (20:45)
[2017-09-23] MEDS ORDERED: Artificial Tears Opht Soln OU PRN (20:48)
--- NOTE | 2017-09-23 20:59 | CP.PCM.CON ---
History of Present Illness - History of Present Illness History of Present Illness: General surgery consult note for Dr. Scott-Jana Zaldivar, PGY-2 Pt S & E at bedside at 2000 62M w/multiple co-morbidites consulted for cholecystitis. Pt admitted for nausea, emesis (nb, bilious, food stuff)- pt unable to tolerate PO intake x 1 day. Admits to diffuse truncal rash over anterior aspect, pruritis, dizzinesss , constipation (chronic)- last BM 2 days prior, blurry vision (chronic). Denies abdominal pain, chest pain, SOB, wheezing, changes in urinary habits, hemturia, hematochezia, sore throat, other complaints. In ED- Ab U/s w/pericholecystic fluid & Gallbladder wall thickening. CT ab w/ pericholecystic fluid, ascites, 2cm hypervascular region of liver w/distended R hepatic vein. Afebrile. No Leuokocytosis. T bili 1.6. PMH: CHF, Arthritis, anemia, asthma, chronic back pain, CAD w/stents, COPD, CVA/ TIA x 3 w/L hemiparesis, gastritis, diverticulitis, HTN, HLD, Osteoporosis, peripheral ede3ma, Rheumatoid arthritis, obstructive sleep apnea, Hx DVT PSH: Appendectomy, coronary stents, x 2, IVC filter, splenectomy All: NKDA SH: Denies ETOH, tobacco, or illicit drug use PMD: Dr. Albright Outpatient GI: Dr. Navarro Review of Systems - Constitutional Constitutional: Weakness (left sided- chronic s/p CVA). absent: Chills, Fever, Headache - EENT Eyes: Blurred Vision (chronic) Ears: Dizziness Nose/Mouth/Throat: absent: Sore Throat - Cardiovascular Cardiovascular: absent: Chest Pain - Respiratory Respiratory: absent: Cough - Gastrointestinal Gastrointestinal: Constipation, Nausea, Vomiting. absent: Abdominal Pain, Change in Bowel Habits, Diarrhea, Hematemesis, Hematochezia, Melena - Genitourinary Genitourinary: absent: Change in Urinary Stream, Dysuria, Hematuria - Musculoskeletal Musculoskeletal: Back Pain (chronic) - Integumentary Integumentary: Rash. absent: Jaundice - Neurological Neurological: Weakness (left sided - chronic) Past Patient History - Infectious Disease Hx of Infectious Diseases: None - Tetanus Immunizations Tetanus Immunization: Unknown - Past Medical History & Family History Past Medical History?: Yes - Past Social History Smoking Status: Never Smoked - CARDIAC Hx Cardia Arrhythmia: Yes Hx Congestive Heart Failure: Yes Hx Hypercholesterolemia: Yes Hx Hypertension: Yes Hx Peripheral Edema: Yes - PULMONARY Hx Asthma: Yes Hx Chronic Obstructive Pulmonary Disease (COPD): Yes Hx Sleep Apnea: Yes - NEUROLOGICAL Hx Seizures: No (denies) Hx Transient Ischemic Attacks (TIA): Yes - HEENT Hx HEENT Problems: No - RENAL Hx Chronic Kidney Disease: No - ENDOCRINE/METABOLIC Hx Endocrine Disorders: Yes Hx Systemic Lupus Erythematosus: Yes - HEMATOLOGICAL/ONCOLOGICAL Hx Anemia: Yes Hx Human Immunodeficiency Virus (HIV): No - INTEGUMENTARY Hx Dermatological Problems: No - MUSCULOSKELETAL/RHEUMATOLOGICAL Hx Arthritis: Yes Hx Osteoporosis: Yes Hx Rheumatoid Arthritis: Yes - GASTROINTESTINAL Hx Diverticulitis: Yes Hx Gastritis: Yes - GENITOURINARY/GYNECOLOGICAL Hx Genitourinary Disorders: Yes - PSYCHIATRIC Hx Anxiety: Yes Hx Depression: Yes - SURGICAL HISTORY Hx Appendectomy: Yes Hx Cholecystectomy: No Hx Coronary Stent: Yes ([facility] [place]) - ANESTHESIA Hx Anesthesia: Yes Hx Anesthesia Reactions: No Hx Malignant Hyperthermia: No Meds Allergies/Adverse Reactions: Allergies Allergy/AdvReac Type Severity Reaction Status Date / Time No Known Allergies Allergy Verified 09/12/17 11:35 - Medications Medications: Current Medications Artificial Tears (Artificial Tears) 2 drop OU Q6 PRN PRN Reason: Dry eyes Aspirin (Aspirin Chewable) 81 mg PO DAILY [facility] Atorvastatin Calcium (Lipitor) 10 mg PO DAILY [facility] Clopidogrel Bisulfate (Plavix) 75 mg PO DAILY [facility] Escitalopram Oxalate (Lexapro) 10 mg PO DAILY [facility] Famotidine (Pepcid) 20 mg PO Q12 [facility] Folic Acid (Folic Acid) 1 mg PO DAILY [facility] Home Med (Prednisone [Kiarra]) 30 mg PO DAILY [facility] Hydroxychloroquine Sulfate (Plaquenil) 200 mg PO Q12H [place] PRN Reason: Protocol Piperacillin Sod/Tazobactam (Sod 3.375 gm/ Sodium Chloride) 100 mls @ 100 mls/ hr IVPB Q6 [place] PRN Reason: Protocol Sodium Chloride (Sodium Chloride 0.9%) 1,000 mls @ 100 mls/hr IV .Q10H [facility] Stop: 09/24/17 16:59 Insulin Human Lispro (Humalog) 0 units SC Q6H [place] PRN Reason: Protocol Loratadine (Claritin) 10 mg PO DAILY [place] Metoprolol Succinate (Toprol Xl) 25 mg PO DAILY [place] Mirtazapine (Remeron) 30 mg PO HS [place] Mupirocin (Bactroban Ointment) applic TOP BID [place] Ondansetron HCl (Zofran Inj) 4 mg IVP Q6 PRN PRN Reason: Nausea/Vomiting Pantoprazole Sodium (Protonix Ec Tab) 40 mg PO PRN PRN PRN Reason: Heartburn Physical Exam - Constitutional Appears: Non-toxic, No Acute Distress - Head Exam Head Exam: ATRAUMATIC, NORMAL INSPECTION, NORMOCEPHALIC - Eye Exam Eye Exam: EOMI, Normal appearance. absent: Scleral icterus - ENT Exam ENT Exam: Mucous Membranes Moist. absent: Normal Exam (poor dentition) - Neck Exam Neck exam: Positive for: Full Rom - Respiratory Exam Respiratory Exam: Clear to Auscultation Bilateral, NORMAL BREATHING PATTERN. absent: Rales, Rhonchi, Wheezes - Cardiovascular Exam Cardiovascular Exam: REGULAR RHYTHM, +S1, +S2 - GI/Abdominal Exam GI & Abdominal Exam: Normal Bowel Sounds, Soft. absent: Distended (obese), Firm , Guarding, Rigid, Tenderness - Extremities Exam Extremities exam: Positive for: normal inspection. Negative for: tenderness - Back Exam Back exam: NORMAL INSPECTION - Neurological Exam Neurological exam: Alert, CN II-XII Intact, Oriented x3 - Psychiatric Exam Psychiatric exam: Normal Affect, Normal Mood - Skin Skin Exam: Rash (over upper anterior aspect of trunk, left antecubital fossa), Warm Results - Vital Signs Recent Vital Signs: Last Vital Signs Temp 98.0 F 09/23/17 19:30 Pulse 56 L 09/23/17 19:30 Resp 18 09/23/17 19:30 BP 134/71 09/23/17 19:30 Pulse Ox 100 09/23/17 20:54 - Labs Result Diagrams: 09/23/17 13:20 09/23/17 14:45 Labs: Laboratory Results - last 24 hr 09/23/17 09/23/17 09/23/17 13:20 13:20 14:45 WBC 6.5 RBC 3.57 L Hgb 9.9 L Hct 33.9 L MCV 95.0 MCH 27.7 MCHC 29.2 L RDW 25.4 H Plt Count 154 MPV 10.0 Neut % (Auto) 62.6 Lymph % (Auto) 10.3 L Nye % (Auto) 23.1 H Eos % (Auto) 1.3 Baso % (Auto) 2.7 H Neut # (Auto) 4.1 Lymph # (Auto) 0.7 L Nye # (Auto) 1.5 H Eos # (Auto) 0.1 Baso # (Auto) 0.2 Neutrophils % (Manual) 62 Band Neutrophils % 2 Lymphocytes % (Manual) 16 L Reactive Lymphs % 3 H Monocytes % (Manual) 15 H Eosinophils % (Manual) 1 Basophils % (Manual) 1 Nucleated RBC % 6 H Platelet Estimate Normal PT INR APTT pO2 VBG pH VBG pCO2 VBG HCO3 VBG Total CO2 VBG O2 Sat (Calc) VBG Base Excess VBG Potassium Glucose Lactate FiO2 Blood Gas Comments Crit Value Called To Crit Value Called By Crit Value Read Back Blood Gas Notified Time Sodium 141 141 Potassium 6.3 H* D 5.5 H Chloride 105 105 Carbon Dioxide 22 23 Anion Gap 20 19 BUN 33 H 34 H Creatinine 1.4 H 1.5 H Est GFR ( Amer) 46 42 Est GFR (Non-Af Amer) 38 35 Random Glucose 70 71 Calcium 9.0 9.2 Total Bilirubin 1.6 H AST 74 H D ALT 19 Alkaline Phosphatase 123 Troponin I 0.1140 Total Protein 7.5 Albumin 4.1 Globulin 3.4 Albumin/Globulin Ratio 1.2 Lipase 140 Venous Blood Potassium Urine Color Urine Clarity Urine pH Ur Specific [place] Urine Protein Urine Glucose (UA) Urine Ketones Urine Blood Urine Nitrate Urine Bilirubin Urine Urobilinogen Ur Leukocyte Esterase Urine RBC (Auto) Urine Microscopic WBC Ur Squamous Epith Cells Hyaline Casts 09/23/17 09/23/17 09/23/17 16:11 20:19 20:27 WBC RBC Hgb Hct MCV MCH MCHC RDW Plt Count MPV Neut % (Auto) Lymph % (Auto) Nye % (Auto) Eos % (Auto) Baso % (Auto) Neut # (Auto) Lymph # (Auto) Nye # (Auto) Eos # (Auto) Baso # (Auto) Neutrophils % (Manual) Band Neutrophils % Lymphocytes % (Manual) Reactive Lymphs % Monocytes % (Manual) Eosinophils % (Manual) Basophils % (Manual) Nucleated RBC % Platelet Estimate PT 15.1 H INR 1.4 H APTT 24.9 L pO2 22 L VBG pH 7.29 L VBG pCO2 55 VBG HCO3 22.2 VBG Total CO2 28.1 H VBG O2 Sat (Calc) 35.3 L VBG Base Excess -1.1 L VBG Potassium 5.2 Glucose 83 Lactate 2.4 H FiO2 21.0 Blood Gas Comments Lact=2.4 Crit Value Called To luis Moise Crit Value Called By 22 Crit Value Read Back N Blood Gas Notified Time 2027 Sodium 138.0 Potassium Chloride 105.0 Carbon Dioxide Anion Gap BUN Creatinine Est GFR ( Amer) Est GFR (Non-Af Amer) Random Glucose Calcium Total Bilirubin AST ALT Alkaline Phosphatase Troponin I Total Protein Albumin Globulin Albumin/Globulin Ratio Lipase Venous Blood Potassium 5.2 Urine Color Yellow Urine Clarity Cloudy Urine pH 5.0 Ur Specific [place] 1.020 Urine Protein 100 Urine Glucose (UA) Neg Urine Ketones Negative Urine Blood Negative Urine Nitrate Negative Urine Bilirubin Negative Urine Urobilinogen 2.0 H Ur Leukocyte Esterase Trace Urine RBC (Auto) 1 Urine Microscopic WBC 6 H Ur Squamous Epith Cells 5 Hyaline Casts 6-10 H Assessment & Plan - Assessment and Plan (Free Text) Assessment: 62M w/PMH sig for multiple co-morbidities consulted for cholecystitis Plan: FU HIDA scan FU AM labs Anti-emetic Recommend GI consult- possible EGD Further recs pending imaging results/attending evaluation MONICA attending Kayley, PGY-2 - Date & Time Date: 09/23/17 Time: 20:57
[2017-09-23] MEDS ORDERED: Insulin Lispro (humaLOG) 100 Units/ml Inj SC SCH (21:00)
[2017-09-23] MEDS ORDERED: Sodium Chloride 0.9% 1,000 ML IV SCH (21:00)
--- NOTE | 2017-09-23 21:31 | CP.PCM.HP ---
History of Present Illness - History of Present Illness History of Present Illness: CC: Abd pain HPI: This is a 62 y/o female with MHx signficant for RA, CHF, COPD, HTN, HLD, CAD/NE who comes in with about 1 day of n/v and RUQ abd pain; vomiting is nb/ nb. Patient denies f/c/d. Patient has never had GB stones before. Patient was here with a pruritic red rash on chest about a week ago and has been on prednisone since then. PCP: Natalee ROS: 14 systems reviewed, negative other than HPI MHx: CAD, CHF, COPD, HTN, HLD, RA; NE in the past, CVAs in the past with some residual L sided weakness among other medical conditions SHx: Appx, cardiac stents x 2, c section x 2 Allergies: NKDA Medications: Per med rec Family Hx: DM2, HTN, cardiac disease in family; sister with cholelithiasis in past Social Hx: Lives with family, no tobacco, no EtOH Surrogate Dec Mkr: Sister, info on chart Present on Admission - Present on Admission Any Indicators Present on Admission: No Past Patient History - Infectious Disease Hx of Infectious Diseases: None - Tetanus Immunizations Tetanus Immunization: Unknown - Past Medical History & Family History Past Medical History?: Yes - Past Social History Smoking Status: Never Smoked - CARDIAC Hx Cardia Arrhythmia: Yes Hx Congestive Heart Failure: Yes Hx Hypercholesterolemia: Yes Hx Hypertension: Yes Hx Peripheral Edema: Yes - PULMONARY Hx Asthma: Yes Hx Chronic Obstructive Pulmonary Disease (COPD): Yes Hx Sleep Apnea: Yes - NEUROLOGICAL Hx Seizures: No (denies) Hx Transient Ischemic Attacks (TIA): Yes - HEENT Hx HEENT Problems: No - RENAL Hx Chronic Kidney Disease: No - ENDOCRINE/METABOLIC Hx Endocrine Disorders: Yes Hx Systemic Lupus Erythematosus: Yes - HEMATOLOGICAL/ONCOLOGICAL Hx Anemia: Yes Hx Human Immunodeficiency Virus (HIV): No - INTEGUMENTARY Hx Dermatological Problems: No - MUSCULOSKELETAL/RHEUMATOLOGICAL Hx Arthritis: Yes Hx Osteoporosis: Yes Hx Rheumatoid Arthritis: Yes - GASTROINTESTINAL Hx Diverticulitis: Yes Hx Gastritis: Yes - GENITOURINARY/GYNECOLOGICAL Hx Genitourinary Disorders: Yes - PSYCHIATRIC Hx Anxiety: Yes Hx Depression: Yes - SURGICAL HISTORY Hx Appendectomy: Yes Hx Cholecystectomy: No Hx Coronary Stent: Yes ([facility] [place]) - ANESTHESIA Hx Anesthesia: Yes Hx Anesthesia Reactions: No Hx Malignant Hyperthermia: No Meds Allergies/Adverse Reactions: Allergies Allergy/AdvReac Type Severity Reaction Status Date / Time No Known Allergies Allergy Verified 09/12/17 11:35 Physical Exam - Constitutional Appears: No Acute Distress - Head Exam Head Exam: ATRAUMATIC, NORMOCEPHALIC - Eye Exam Eye Exam: EOMI, PERRL - ENT Exam ENT Exam: Mucous Membranes Moist - Neck Exam Neck exam: Positive for: Full Rom - Respiratory Exam Respiratory Exam: Clear to Auscultation Bilateral, NORMAL BREATHING PATTERN - Cardiovascular Exam Cardiovascular Exam: REGULAR RHYTHM, +S1, +S2 - GI/Abdominal Exam GI & Abdominal Exam: Normal Bowel Sounds, Soft Additional comments: currently no RUQ pain or tenderness with palpation - Extremities Exam Extremities exam: Positive for: full ROM, normal inspection - Neurological Exam Neurological exam: Alert, CN II-XII Intact, Oriented x3 - Psychiatric Exam Psychiatric exam: Normal Affect, Normal Mood - Skin Skin Exam: Dry, Warm Results - Vital Signs Recent Vital Signs: Last Vital Signs Temp 98.0 F 09/23/17 19:30 Pulse 56 L 09/23/17 19:30 Resp 18 09/23/17 19:30 BP 134/71 09/23/17 19:30 Pulse Ox 100 09/23/17 20:54 - Labs Result Diagrams: 09/23/17 13:20 09/23/17 14:45 Labs: Laboratory Results - last 24 hr 09/23/17 09/23/17 09/23/17 13:20 13:20 14:45 WBC 6.5 RBC 3.57 L Hgb 9.9 L Hct 33.9 L MCV 95.0 MCH 27.7 MCHC 29.2 L RDW 25.4 H Plt Count 154 MPV 10.0 Neut % (Auto) 62.6 Lymph % (Auto) 10.3 L [place] % (Auto) 23.1 H Eos % (Auto) 1.3 Baso % (Auto) 2.7 H Neut # (Auto) 4.1 Lymph # (Auto) 0.7 L [place] # (Auto) 1.5 H Eos # (Auto) 0.1 Baso # (Auto) 0.2 Neutrophils % (Manual) 62 Band Neutrophils % 2 Lymphocytes % (Manual) 16 L Reactive Lymphs % 3 H Monocytes % (Manual) 15 H Eosinophils % (Manual) 1 Basophils % (Manual) 1 Nucleated RBC % 6 H Platelet Estimate Normal PT INR APTT pO2 VBG pH VBG pCO2 VBG HCO3 VBG Total CO2 VBG O2 Sat (Calc) VBG Base Excess VBG Potassium Glucose Lactate FiO2 Blood Gas Comments Crit Value Called To Crit Value Called By Crit Value Read Back Blood Gas Notified Time Sodium 141 141 Potassium 6.3 H* D 5.5 H Chloride 105 105 Carbon Dioxide 22 23 Anion Gap 20 19 BUN 33 H 34 H Creatinine 1.4 H 1.5 H Est GFR ( Amer) 46 42 Est GFR (Non-Af Amer) 38 35 Random Glucose 70 71 Calcium 9.0 9.2 Total Bilirubin 1.6 H AST 74 H D ALT 19 Alkaline Phosphatase 123 Troponin I 0.1140 Total Protein 7.5 Albumin 4.1 Globulin 3.4 Albumin/Globulin Ratio 1.2 Lipase 140 Venous Blood Potassium Urine Color Urine Clarity Urine pH Ur Specific [place] Urine Protein Urine Glucose (UA) Urine Ketones Urine Blood Urine Nitrate Urine Bilirubin Urine Urobilinogen Ur Leukocyte Esterase Urine RBC (Auto) Urine Microscopic WBC Ur Squamous Epith Cells Hyaline Casts 09/23/17 09/23/17 09/23/17 16:11 20:19 20:27 WBC RBC Hgb Hct MCV MCH MCHC RDW Plt Count MPV Neut % (Auto) Lymph % (Auto) [place] % (Auto) Eos % (Auto) Baso % (Auto) Neut # (Auto) Lymph # (Auto) [place] # (Auto) Eos # (Auto) Baso # (Auto) Neutrophils % (Manual) Band Neutrophils % Lymphocytes % (Manual) Reactive Lymphs % Monocytes % (Manual) Eosinophils % (Manual) Basophils % (Manual) Nucleated RBC % Platelet Estimate PT 15.1 H INR 1.4 H APTT 24.9 L pO2 22 L VBG pH 7.29 L VBG pCO2 55 VBG HCO3 22.2 VBG Total CO2 28.1 H VBG O2 Sat (Calc) 35.3 L VBG Base Excess -1.1 L VBG Potassium 5.2 Glucose 83 Lactate 2.4 H FiO2 21.0 Blood Gas Comments Lact=2.4 Crit Value Called To luis Moise Crit Value Called By 22 Crit Value Read Back N Blood Gas Notified Time 2027 Sodium 138.0 Potassium Chloride 105.0 Carbon Dioxide Anion Gap BUN Creatinine Est GFR ( Amer) Est GFR (Non-Af Amer) Random Glucose Calcium Total Bilirubin AST ALT Alkaline Phosphatase Troponin I Total Protein Albumin Globulin Albumin/Globulin Ratio Lipase Venous Blood Potassium 5.2 Urine Color Yellow Urine Clarity Cloudy Urine pH 5.0 Ur Specific [place] 1.020 Urine Protein 100 Urine Glucose (UA) Neg Urine Ketones Negative Urine Blood Negative Urine Nitrate Negative Urine Bilirubin Negative Urine Urobilinogen 2.0 H Ur Leukocyte Esterase Trace Urine RBC (Auto) 1 Urine Microscopic WBC 6 H Ur Squamous Epith Cells 5 Hyaline Casts 6-10 H - Imaging and Cardiology US - abdomen Status: Report reviewed by me CT scan - abdomen Status: Report reviewed by me (gb thickening, ascites, hepatic lesion, pl eff) Assessment & Plan (1) Acalculous cholecystitis Assessment and Plan: 62 y/o female with multiple medical problems with ? acalculous cholecystitis and TRUPTI. 1) Possible acalculous cholecystitis -NPO, conservative IV fluids -Continue Zosyn 3.375 IV q6h started in ER -Pain control -Nausea control -Surgery consult ([place]) -HIDA scan pending 2) TRUPTI -- possible vol dep from n/v -IVF as above -dose medications renally -repeat BMP in AM (slightly elevated K) 3) OLIVIA -- Cont CPAP 5 ml H2O, 3 L O2 4) CHF stable, caution with IVF 5) HTN -- stable 6) CAD -- stable 7) COPD -- stable 8) RA/SLE -- cont plaquenil 9) Itching/rash -- unclear etiology -Cont benadryl PRN -Cont prednisone 10) DVT PPx -- SCDs only for now Status: Acute (2) TRUPTI (acute kidney injury) Status: Acute (3) OLIVIA (obstructive sleep apnea) Status: Acute (4) RA (rheumatoid arthritis) Status: Chronic Priority: High (5) SLE (systemic lupus erythematosus) Status: Chronic Priority: High (6) COPD (chronic obstructive pulmonary disease) Status: Acute (7) HTN (hypertension) Status: Acute (8) HLD (hyperlipidemia) Status: Acute (9) CAD (coronary artery disease) Status: Acute (10) CHF (congestive heart failure) Status: Chronic (11) DVT prophylaxis Status: Acute
[2017-09-23] MEDS: Piperacillin/Tazobact 3.375 GM in Sodium Chloride 0.9% 100 ML IVPB SCH (22:02)
[2017-09-23] MEDS: Sodium Chloride 0.9% 1,000 ML IV SCH (22:39)
[2017-09-24] MEDS: Piperacillin/Tazobact 3.375 GM in Sodium Chloride 0.9% 100 ML IVPB SCH ×4 (03:20→22:09)
[2017-09-24] MEDS ORDERED: Dextrose 50% SYRINGE Inj (50 ml) IVP ONE ×2 (05:27→11:19)
[2017-09-24 05:35] LABS: HEMOGLOBIN 9.2 g/dL (12.0-16.0); MEAN CELL VOLUME 93.5 fl (81.0-99.0); MEAN CORPUSCULAR HEMOGLOBIN 27.9 pg (27.0-31.0); MEAN CORPUSCULAR HGB CONC 29.9 g/dL (33.0-37.0); RBC 3.28 Mil/uL (3.80-5.20); RED CELL DISTRIBUTION WIDTH 24.4 % (11.5-14.5); WHITE BLOOD COUNT 7.7 K/uL (4.8-10.8)
[2017-09-24 06:07] LABS: ALBUMIN 3.6 g/dL (3.5-5.0)
--- NOTE | 2017-09-24 08:37 | CARD ---
APPROVED REPORT EKG Measurement Heart [id number] <Conclusion> Sinus bradycardia with premature atrial complexes Nonspecific T wave abnormality Abnormal ECG
[2017-09-24] MEDS ORDERED: [UNRECOGNIZED DRUG - MIXTURE] TP SCH (09:00)
--- NOTE | 2017-09-24 11:01 | CT ---
PROCEDURE: CT Abdomen and Pelvis with contrast HISTORY: evaluate for cholecystitis COMPARISON: CT scan of the abdomen pelvis dated 06/26/2017. TECHNIQUE: Contrast dose: 95 mL Visipaque 320 Radiation dose: Total exam DLP = 921.3 mGy-cm. This CT exam was performed using one or more of the following dose reduction techniques: Automated exposure control, adjustment of the mA and/or kV according to patient size, and/or use of iterative reconstruction technique. FINDINGS: LOWER THORAX: Cardiomegaly. Small right and trace left pleural effusions. LIVER: Coarse right hepatic dome calcification. No gross lesion or ductal dilatation. GALLBLADDER AND BILE DUCTS: Gallbladder wall edema and pericholecystic fluid. No radiopaque calculi. PANCREAS: Unremarkable. No gross lesion or ductal dilatation. SPLEEN: Unremarkable. ADRENALS: Unremarkable. No mass. KIDNEYS AND URETERS: Unremarkable. No hydronephrosis. No solid mass. VASCULATURE: Infrarenal inferior vena cava filter with inferior-most struts in the right common iliac vein. No aortic aneurysm. BOWEL: Colonic diverticulosis. No obstruction. No gross mural thickening. APPENDIX: Normal appendix. PERITONEUM: Unremarkable. Small ascites in the perihepatic, right pericolic gutter, pelvic mesentery cul-de-sac. No free air. LYMPH NODES: Unremarkable. No enlarged lymph nodes. BLADDER: Unremarkable. REPRODUCTIVE: Unremarkable. BONES: Grade 1 anterolisthesis of L5 on S1. Compression fractures of T11, T12, L1, and L2. OTHER FINDINGS: Left breast skin thickening and/or edema. IMPRESSION: Body wall edema, small pleural effusions, ascites and pericholecystic fluid. Lungs are nonspecific and may represent CHF for renal insufficiency. Cholecystitis is considered less likely. However, if there is clinical concern for acute cholecystitis, a nuclear medicine HIDA scan can be obtained to evaluate patency of the cystic duct. Additional stable findings as above.
--- NOTE | 2017-09-24 11:14 | CP.PCM.PN ---
Subjective - Date & Time of Evaluation Date of Evaluation: 09/24/17 Time of Evaluation: 11:10 - Subjective Subjective: General Surgery - Dr. Scott Pt S&E. KELLY. Pt complains of mid-back pain, she denies any abdominal pain, nausea or vomiting. She states that she did feel some nausea yesterday but it has improved. no fevers/chills, sob/chest pain. She is aware of plan for HIDA today. Objective - Vital Signs/Intake and Output Vital Signs (last 24 hours): Temp Pulse Resp BP Pulse Ox 97.9 F 53 L 18 116/67 98 09/24/17 08:00 09/24/17 08:00 09/24/17 08:00 09/24/17 08:00 09/24/17 08:00 - Medications Medications: Current Medications Artificial Tears (Artificial Tears) 2 drop OU Q6 PRN PRN Reason: Dry eyes Aspirin (Aspirin Chewable) 81 mg PO DAILY [facility] Atorvastatin Calcium (Lipitor) 10 mg PO DAILY [facility] Clopidogrel Bisulfate (Plavix) 75 mg PO DAILY [facility] Diphenhydramine HCl (Benadryl) 25 mg PO Q6 PRN PRN Reason: rash/itching Escitalopram Oxalate (Lexapro) 10 mg PO DAILY [facility] Famotidine (Pepcid) 20 mg PO Q12 [facility] Last Admin: 09/23/17 22:38 Dose: 20 mg Folic Acid (Folic Acid) 1 mg PO DAILY [facility] Hydroxychloroquine Sulfate (Plaquenil) 200 mg PO Q12H [facility] PRN Reason: Protocol Last Admin: 09/23/17 22:38 Dose: 200 mg Piperacillin Sod/Tazobactam (Sod 3.375 gm/ Sodium Chloride) 100 mls @ 100 mls/ hr IVPB Q6 [facility] PRN Reason: Protocol Last Admin: 09/24/17 03:20 Dose: 100 mls/hr Sodium Chloride (Sodium Chloride 0.9%) 1,000 mls @ 75 mls/hr IV .[id number] [facility] Stop: 09/25/17 00:02 Last Admin: 09/23/17 22:39 Dose: 75 mls/hr Loratadine (Claritin) 10 mg PO DAILY [facility] Metoprolol Succinate (Toprol Xl) 25 mg PO DAILY [facility] Mirtazapine (Remeron) 30 mg PO HS [facility] Last Admin: 09/23/17 22:38 Dose: 30 mg Morphine Sulfate (Morphine) 1 mg IVP Q4 PRN PRN Reason: Pain, moderate (4-7) Morphine Sulfate (Morphine) 2 mg IVP Q4 PRN PRN Reason: Pain, severe (8-10) Mupirocin (Bactroban Ointment) 1 applic TOP BID [facility] Ondansetron HCl (Zofran Inj) 4 mg IVP Q6 PRN PRN Reason: Nausea/Vomiting Pantoprazole Sodium (Protonix Ec Tab) 40 mg PO DAILY [facility] Prednisone (Prednisone Tab) 30 mg PO DAILY [facility] - Labs Labs: 09/24/17 05:05 09/24/17 05:05 PT 15.1 Seconds (9.8-13.1) H 09/23/17 20:27 INR 1.4 (0.9-1.2) H 09/23/17 20:27 APTT 24.9 Seconds (25.6-37.1) L 09/23/17 20:27 - Constitutional Appears: No Acute Distress - Head Exam Head Exam: ATRAUMATIC, NORMAL INSPECTION, NORMOCEPHALIC - Eye Exam Eye Exam: Normal appearance - Respiratory Exam Respiratory Exam: NORMAL BREATHING PATTERN. absent: Respiratory Distress - Cardiovascular Exam Cardiovascular Exam: REGULAR RHYTHM - GI/Abdominal Exam GI & Abdominal Exam: Guarding (voluntary), Soft, Tenderness (RUQ). absent: Distended, Firm, Rigid, Rebound - Neurological Exam Neurological Exam: Alert, Oriented x3 - Psychiatric Exam Psychiatric exam: Normal Affect, Normal Mood - Skin Skin Exam: Dry, Intact Assessment and Plan - Assessment and Plan (Free Text) Assessment: 62M w/ multiple medical co-morbidities, RUQ tenderness and pericholecystic fluid w/ concern for cholecystitis Plan: -F/U HIDA scan -TBili trending down, 1.1 today from 1.6 -Continue NPO, IVF, pain control and anti-emetics prn -If HIDA positive may need cholecystostomy tube MONICA attending Félix PGY-4, Surgery
[2017-09-24] MEDS ORDERED: Dextrose 50% SYRINGE Inj (50 ml) IV PRN (11:20)
[2017-09-24] MEDS ORDERED: Glucagon Recombinant 1 mg Inj IM PRN (11:20)
[2017-09-24] MEDS ORDERED: Dextrose 50% SYRINGE Inj (50 ml) IVP PRN (11:20)
[2017-09-24] MEDS ORDERED: Dextrose 50% SYRINGE Inj (50 ml) ONE (11:21)
[2017-09-24] MEDS: Sodium Chloride 0.9% 1,000 ML IV SCH (11:25)
--- NOTE | 2017-09-24 11:35 | CP.PCM.PN ---
Subjective - Date & Time of Evaluation Date of Evaluation: 09/24/17 Time of Evaluation: 11:00 - Subjective Subjective: ABDOMINAL PAIN BETTER NAUSEA AND VOMITING RESOLVED Denies CP no SOB no wheezing No fever Objective - Vital Signs/Intake and Output Vital Signs (last 24 hours): Temp Pulse Resp BP Pulse Ox 97.9 F 53 L 18 116/67 98 09/24/17 08:00 09/24/17 08:00 09/24/17 08:00 09/24/17 08:00 09/24/17 08:00 - Medications Medications: Current Medications Artificial Tears (Artificial Tears) 2 drop OU Q6 PRN PRN Reason: Dry eyes Aspirin (Aspirin Chewable) 81 mg PO DAILY [facility] Atorvastatin Calcium (Lipitor) 10 mg PO DAILY [facility] Clopidogrel Bisulfate (Plavix) 75 mg PO DAILY [facility] Dextrose (Dextrose 50% Inj) 0 ml IV STAT PRN; Protocol PRN Reason: Hypoglycemia Protocol Dextrose (Dextrose 50% Inj) 50 ml IVP ONCE PRN PRN Reason: Hypoglycemia Dextrose (Glutose 15) 0 gm PO ONCE PRN; Protocol PRN Reason: Hypoglycemia Protocol Diphenhydramine HCl (Benadryl) 25 mg PO Q6 PRN PRN Reason: rash/itching Escitalopram Oxalate (Lexapro) 10 mg PO DAILY [facility] Famotidine (Pepcid) 20 mg PO Q12 [facility] Last Admin: 09/23/17 22:38 Dose: 20 mg Folic Acid (Folic Acid) 1 mg PO DAILY [facility] Glucagon (Glucagen Diagnostic Kit) 0 mg IM STAT PRN; Protocol PRN Reason: Hypoglycemia Protocol Hydroxychloroquine Sulfate (Plaquenil) 200 mg PO Q12H [facility] PRN Reason: Protocol Last Admin: 09/23/17 22:38 Dose: 200 mg Piperacillin Sod/Tazobactam (Sod 3.375 gm/ Sodium Chloride) 100 mls @ 100 mls/ hr IVPB Q6 [facility] PRN Reason: Protocol Last Admin: 09/24/17 11:26 Dose: 100 mls/hr Sodium Chloride (Sodium Chloride 0.9%) 1,000 mls @ 75 mls/hr IV .[id number] [facility] Stop: 09/25/17 00:02 Last Admin: 09/24/17 11:25 Dose: 75 mls/hr Loratadine (Claritin) 10 mg PO DAILY [facility] Metoprolol Succinate (Toprol Xl) 25 mg PO DAILY [facility] Mirtazapine (Remeron) 30 mg PO HS [facility] Last Admin: 09/23/17 22:38 Dose: 30 mg Morphine Sulfate (Morphine) 1 mg IVP Q4 PRN PRN Reason: Pain, moderate (4-7) Morphine Sulfate (Morphine) 2 mg IVP Q4 PRN PRN Reason: Pain, severe (8-10) Mupirocin (Bactroban Ointment) 1 applic TOP BID [facility] Ondansetron HCl (Zofran Inj) 4 mg IVP Q6 PRN PRN Reason: Nausea/Vomiting Pantoprazole Sodium (Protonix Ec Tab) 40 mg PO DAILY [facility] Prednisone (Prednisone Tab) 30 mg PO DAILY [facility] - Labs Labs: 09/24/17 05:05 09/24/17 05:05 PT 15.1 Seconds (9.8-13.1) H 09/23/17 20:27 INR 1.4 (0.9-1.2) H 09/23/17 20:27 APTT 24.9 Seconds (25.6-37.1) L 09/23/17 20:27 - Constitutional Appears: No Acute Distress, Older Than Stated Age, Chronically Ill - Head Exam Head Exam: NORMAL INSPECTION, NORMOCEPHALIC - Eye Exam Pupil Exam: NORMAL ACCOMODATION - ENT Exam ENT Exam: Mucous Membranes Dry, Normal External Ear Exam - Neck Exam Neck Exam: Full ROM. absent: Meningismus - Respiratory Exam Respiratory Exam: Rhonchi, NORMAL BREATHING PATTERN. absent: Wheezes, Respiratory Distress - Cardiovascular Exam Cardiovascular Exam: REGULAR RHYTHM, +S1, +S2 - GI/Abdominal Exam GI & Abdominal Exam: Soft, Normal Bowel Sounds. absent: Tenderness - Extremities Exam Extremities Exam: Normal Capillary Refill. absent: Calf Tenderness - Back Exam Back Exam: absent: CVA tenderness (L), CVA tenderness (R) - Neurological Exam Neurological Exam: Alert, Awake, CN II-XII Intact, Oriented x3 - Psychiatric Exam Psychiatric exam: Normal Affect, Normal Mood - Skin Skin Exam: Dry, Normal Color, Warm Assessment and Plan - Assessment and Plan (Free Text) Assessment: 62 y/o lady well known to the Hospitalist team from previous admissions -PHx of COPD, CHF, RA,SLE, CAD,HTN,OLIVIA , came because of 1 day hx of abdominal pain accompanied by nausea/vomiting. . Also complains of pruritic rash on her chest , neck area x 2 wks. Abd Sono: Pericholecystic fluid and gallbladder wall thickening; correlate clinically for acute cholecystitis. (1) Abdominal Pain r/o Acute cholecystitis -NPO, conservative IV fluids -Continue Zosyn 3.375 IV q6h -Pain control -Nausea control -Surgery consulted -HIDA scan pending (2) TRUPTI (acute kidney injury) on CKD Stage III Status: Acute possible vol depletion from n/v -IVF as above -dose medications renally -repeat BMP in AM (slightly elevated K) (3) OLIVIA (obstructive sleep apnea) -- Cont CPAP 5 ml H2O, 3 L O2 (4) RA (rheumatoid arthritis)/SLE Status: Chronic Priority: High Pt on Plaquenil and Prednisone (5) COPD (chronic obstructive pulmonary disease), chronic cont Duonebs Oxygen at 4 liters NC cont Prednisone (6) HTN (hypertension) cont Toprol (7) HLD (hyperlipidemia) cont Lipitor (8) CAD (coronary artery disease) Status: Acute Hold ASA and Plavix for now as pt may need surgical procedure 9. Pruritic Rash ? etiology , poss Contact Dermatitis rash on chest and neck only ( ? sun exposed) start Fluocinilone cream bid Atarax for itch (10) CHF (congestive heart failure), chronic diastolic dysfxn EF 60% cont BB (11) DVT prophylaxis Status: Acute Lovenox
--- NOTE | 2017-09-24 13:06 | NM ---
PROCEDURE: Nuclear Medicine Hepatobiliary Scan HISTORY: hyperbilirubinemia COMPARISON: None available. TECHNIQUE: 5.600 mCi of technetium 99m Mebrofenin was administered intravenously. Planar images of the abdomen were obtained at 5 min intervals to 60 mins. Delayed images were also obtained. FINDINGS: LIVER: Timely and homogenous uptake. COMMON BILE DUCT: identified at 30 mins. GALLBLADDER: identified at 5 mins. SMALL BOWEL: Identified at 30 mins. IMPRESSION: Normal Hepatobiliary Scan. The cystic duct is patent.
[2017-09-24] MEDS ORDERED: DiphenhydrAMINE 50 mg/ml Inj IVP STA (13:15)
[2017-09-24] MEDS ORDERED: Albuterol-Ipratrop 3 mg / 0.5 (3 ml) UD INH PRN (13:55)
[2017-09-24] MEDS ORDERED: Fluconazole IV 100mg/50 ml NS 50 ML IVPB SCH (14:00)
[2017-09-24] MEDS: Albuterol-Ipratrop 3 mg / 0.5 (3 ml) UD INH SCH ×2 (15:45→19:04)
[2017-09-24] MEDS: Pantoprazole 40 mg EC Tab PO SCH (16:33)
[2017-09-24] MEDS: Nystatin 100,000 Units/ml Oral Susp 5 ml UD PO SCH ×2 (16:35→22:08)
[2017-09-24] MEDS: Metoprolol Succinate 25 mg XL Tab PO SCH (17:05)
[2017-09-25] MEDS: Piperacillin/Tazobact 3.375 GM in Sodium Chloride 0.9% 100 ML IVPB SCH ×3 (04:17→11:36)
[2017-09-25 06:10] LABS: ALB/GLOB RATIO 1.1 (1.0-2.1); ALBUMIN 3.7 g/dL (3.5-5.0); CALCIUM 8.5 mg/dL (8.4-10.2)
[2017-09-25] MEDS: Albuterol-Ipratrop 3 mg / 0.5 (3 ml) UD INH SCH ×2 (08:21→11:49)
[2017-09-25 08:35] VITALS: BP 120/80; PULSE 70; RESP 18; TEMP 98.2; O2SAT 97
[2017-09-25] MEDS: Nystatin 100,000 Units/ml Oral Susp 5 ml UD PO SCH ×2 (08:42→12:03)
[2017-09-25] MEDS: Pantoprazole 40 mg EC Tab PO SCH (08:43)
[2017-09-25] MEDS: Metoprolol Succinate 25 mg XL Tab PO SCH (08:48)
[2017-09-25] MEDS ORDERED: Enoxaparin 30 mg Syringe SC SCH (09:00)
--- NOTE | 2017-09-25 11:02 | CP.PCM.DIS ---
Provider - Provider Date of Admission: 09/23/17 20:36 Attending physician: Gunjan Bonilla MD Primary care physician: Deniz Albright MD Time Spent in preparation of Discharge (in minutes): 30 Hospital Course - Lab Results Lab Results: Micro Results 09/23/17 16:11 Urine,Clean Catch Urine Culture - Final 10-50,000 CFU/ML. MULTIPLE SPECIES. PROBABLE CONTAMINATION. Most Recent Lab Values WBC 7.7 K/uL (4.8-10.8) 09/24/17 05:05 RBC 3.28 Mil/uL (3.80-5.20) L 09/24/17 05:05 Hgb 9.2 g/dL (12.0-16.0) L 09/24/17 05:05 Hct 30.7 % (34.0-47.0) L 09/24/17 05:05 MCV 93.5 fl (81.0-99.0) 09/24/17 05:05 MCH 27.9 pg (27.0-31.0) 09/24/17 05:05 MCHC 29.9 g/dL (33.0-37.0) L 09/24/17 05:05 RDW 24.4 % (11.5-14.5) H 09/24/17 05:05 Plt Count 137 K/uL (130-400) 09/24/17 05:05 MPV 10.0 fl (7.2-11.7) 09/23/17 13:20 Neut % (Auto) 62.6 % (50.0-75.0) 09/23/17 13:20 Lymph % (Auto) 10.3 % (20.0-40.0) L 09/23/17 13:20 [place] % (Auto) 23.1 % (0.0-10.0) H 09/23/17 13:20 Eos % (Auto) 1.3 % (0.0-4.0) 09/23/17 13:20 Baso % (Auto) 2.7 % (0.0-2.0) H 09/23/17 13:20 Neut # (Auto) 4.1 K/uL (1.8-7.0) 09/23/17 13:20 Lymph # (Auto) 0.7 K/uL (1.0-4.3) L 09/23/17 13:20 [place] # (Auto) 1.5 K/uL (0.0-0.8) H 09/23/17 13:20 Eos # (Auto) 0.1 K/uL (0.0-0.7) 09/23/17 13:20 Baso # (Auto) 0.2 K/uL (0.0-0.2) 09/23/17 13:20 Neutrophils % (Manual) 62 % (42-75) 09/23/17 13:20 Band Neutrophils % 2 % (0-2) 09/23/17 13:20 Lymphocytes % (Manual) 16 % (20-50) L 09/23/17 13:20 Reactive Lymphs % 3 % (0-0) H 09/23/17 13:20 Monocytes % (Manual) 15 % (0-10) H 09/23/17 13:20 Eosinophils % (Manual) 1 % (0-7) 09/23/17 13:20 Basophils % (Manual) 1 % (0-2) 09/23/17 13:20 Nucleated RBC % 6 % (0-0) H 09/23/17 13:20 Platelet Estimate Normal (NORMAL) 09/23/17 13:20 PT 15.1 Seconds (9.8-13.1) H 09/23/17 20:27 INR 1.4 (0.9-1.2) H 09/23/17 20:27 APTT 24.9 Seconds (25.6-37.1) L 09/23/17 20:27 pO2 22 mm/Hg (30-55) L 09/23/17 20:19 VBG pH 7.29 (7.32-7.43) L 09/23/17 20:19 VBG pCO2 55 mmHg (40-60) 09/23/17 20:19 VBG HCO3 22.2 mmol/L 09/23/17 20:19 VBG Total CO2 28.1 mmol/L (22-28) H 09/23/17 20:19 VBG O2 Sat (Calc) 35.3 % (40-65) L 09/23/17 20:19 VBG Base Excess -1.1 mmol/L (0.0-2.0) L 09/23/17 20:19 VBG Potassium 5.2 mmol/L (3.6-5.2) 09/23/17 20:19 Sodium 138.0 mmol/L (132-148) 09/23/17 20:19 Chloride 105.0 mmol/L (98-107) 09/23/17 20:19 Glucose 83 mg/dL (65-105) 09/23/17 20:19 Lactate 2.4 mmol/L (0.7-2.1) H 09/23/17 20:19 FiO2 21.0 % 09/23/17 20:19 Blood Gas Comments Lact=2.4 09/23/17 20:19 Crit Value Called To luis Moise 09/23/17 20: Crit Value Called By 22 09/23/17 20: Crit Value Read Back N 09/23/17 20:19 Blood Gas Notified Time 202709/23/17 20:19 Sodium 145 mmol/l (132-148) 09/25/17 04:55 Potassium 4.6 MMOL/L (3.6-5.0) 09/25/17 04:55 Chloride 108 mmol/L (98-107) H 09/25/17 04:55 Carbon Dioxide 27 mmol/L (22-30) 09/25/17 04:55 Anion Gap 15 (10-20) 09/25/17 04:55 BUN 31 mg/dl (7-17) H 09/25/17 04:55 Creatinine 1.6 mg/dl (0.7-1.2) H 09/25/17 04:55 Est GFR ( Amer) 39 09/25/17 04:55 Est GFR (Non-Af Amer) 32 09/25/17 04:55 POC Glucose (mg/dL) 101 mg/dL (65-110) 09/25/17 05:14 Random Glucose 106 mg/dL (65-105) H 09/25/17 04:55 Lactic Acid 1.6 MMOL/L (0.7-2.1) 09/24/17 05:30 Calcium 8.5 mg/dL (8.4-10.2) 09/25/17 04:55 Total Bilirubin 0.9 mg/dl (0.2-1.3) 09/25/17 04:55 AST 56 U/L (14-36) H D 09/25/17 04:55 ALT 51 U/L (9-52) 09/25/17 04:55 Alkaline Phosphatase 123 U/L (38-126) 09/25/17 04:55 Troponin I 0.1140 ng/mL (0.00-0.120) 09/23/17 13:20 Total Protein 7.0 G/DL (6.3-8.2) 09/25/17 04:55 Albumin 3.7 g/dL (3.5-5.0) 09/25/17 04:55 Globulin 3.3 gm/dL (2.2-3.9) 09/25/17 04:55 Albumin/Globulin Ratio 1.1 (1.0-2.1) 09/25/17 04:55 Lipase 140 U/L (23-300) 09/23/17 13:20 Venous Blood Potassium 5.2 mmol/L (3.6-5.2) 09/23/17 20:19 Urine Color Yellow (YELLOW) 09/23/17 16:11 Urine Clarity Cloudy (Clear) 09/23/17 16:11 Urine pH 5.0 (5.0-8.0) 09/23/17 16:11 Ur Specific [place] 1.020 (1.003-1.030) 09/23/17 16:11 Urine Protein 100 mg/dL (NEGATIVE) 09/23/17 16:11 Urine Glucose (UA) Neg mg/dL (Normal) 09/23/17 16:11 Urine Ketones Negative mg/dL (NEGATIVE) 09/23/17 16:11 Urine Blood Negative (NEGATIVE) 09/23/17 16:11 Urine Nitrate Negative (NEGATIVE) 09/23/17 16:11 Urine Bilirubin Negative (NEGATIVE) 09/23/17 16:11 Urine Urobilinogen 2.0 mg/dL (0.2-1.0) H 09/23/17 16:11 Ur Leukocyte Esterase Trace Marcelo/uL (Negative) 09/23/17 16:11 Urine RBC (Auto) 1 /hpf (0-3) 09/23/17 16:11 Urine Microscopic WBC 6 /hpf (0-5) H 09/23/17 16:11 Ur Squamous Epith Cells 5 /hpf (0-5) 09/23/17 16:11 Hyaline Casts 6-10 /hpf (0-2) H 09/23/17 16:11 Blood Type B POSITIVE 09/23/17 23:00 Antibody Screen Negative 09/23/17 23:00 BBK History Checked Patient has bt 09/23/17 23:00 - Hospital Course Hospital Course: 62 y/o lady well known to the Hospitalist team from previous admissions -PHx of COPD, CHF, RA,SLE, CAD,HTN,OLIVIA , came because of 1 day hx of abdominal pain accompanied by nausea/vomiting. . Also complains of pruritic rash on her chest , neck area x 2 wks. Abd Sono: Pericholecystic fluid and gallbladder wall thickening; correlate clinically for acute cholecystitis. Patient was evaluated by surgery, no surgical intervention at this time. Pt pain improved. No complaints today, stable for discharge home. Follow up with PCP one week. Discharge Exam - Head Exam Additional comments: EXAM: Vitals stable and reviewed GEN: WDWN, alert, cooperative HEENT: NCAT, PERRL, EOMI Neck: supple, no lymphadenopathy CARDIO: +S1S2, RRR, NO M/R/G LUNG: CTAB, baseline breathsounds ABD: soft, NT, ND, no masses, no HSM EXT: no edema, pedal pulses Neuro: AAOx3, Strength equal, bilateral UE/LE Psych: normal mood, normal affect Discharge Plan - Discharge Medications Prescriptions: Aspirin 81 mg PO DAILY #30 tab.chew Atorvastatin [Lipitor] 10 mg PO DAILY #30 tab Clopidogrel [Plavix] 75 mg PO DAILY #30 tab Escitalopram [Lexapro] 10 mg PO DAILY #30 tab Famotidine [Heartburn Prevention] 20 mg PO Q12 #60 tablet Folic Acid 1 mg PO DAILY #30 tab Hydroxychloroquine Sulfate [Plaquenil] 200 mg PO Q12H #60 tablet hydrOXYzine HCl [Atarax] 10 mg PO TID #90 tab Loratadine [Claritin] 10 mg PO DAILY #30 tab Metoprolol Succinate XL [Toprol XL] 25 mg PO DAILY #30 tab Mirtazapine [Remeron] 30 mg PO HS #30 tab Mupirocin 2% Ointment [Bactroban Ointment] 15 gm TOP BID #1 tube Pantoprazole [Protonix EC Tab] 40 mg PO PRN PRN #30 ect PRN Reason: Heartburn Polyethylene Glycol/Polyvinyl [Artificial Tears] 2 drop OU Q6 PRN #1 bottle PRN Reason: Dry Eyes Prednisone [Kiarra] 30 mg PO DAILY #100 tcp - Follow Up Plan Condition: FAIR Disposition: HOME/ ROUTINE Instructions: Cholecystitis (DC), Cholecystitis (GEN) Additional Instructions: FOLLOW UP PCP IN ONE WEEK Referrals: Deniz Albright MD [Primary Care Provider] -
== END 2017-09-25 12:00 | disposition home or self-care (01) | DRG 557 ==
LOC: H.ER 11:25 → H.ERHOLD 20:36 → H.TEL 23:08
PROVIDERS: ADMIT Internal Medicine; ATTEND Internal Medicine
DX: K81.0 Acute cholecystitis (principal); N17.9 Acute kidney failure, unspecified; I50.32 Chronic diastolic (congestive) heart failure; M32.9 Systemic lupus erythematosus, unspecified; N18.3 Chronic kidney disease, stage 3 (moderate); I13.0 Hypertensive heart and chronic kidney disease with heart failure and stage 1 through stage 4 chronic kidney disease, or unspecified chronic kidney disease; J44.9 Chronic obstructive pulmonary disease, unspecified; I25.10 Atherosclerotic heart disease of native coronary artery without angina pectoris; G47.33 Obstructive sleep apnea (adult) (pediatric); I69.354 Hemiplegia and hemiparesis following cerebral infarction affecting left non-dominant side; L29.8 Other pruritus; M81.0 Age-related osteoporosis without current pathological fracture; M06.9 Rheumatoid arthritis, unspecified; E78.5 Hyperlipidemia, unspecified; E78.00 Pure hypercholesterolemia, unspecified; Z79.82 Long term (current) use of aspirin; Z79.02 Long term (current) use of antithrombotics/antiplatelets; Z86.718 Personal history of other venous thrombosis and embolism; Z90.81 Acquired absence of spleen; Z95.5 Presence of coronary angioplasty implant and graft; F41.9 Anxiety disorder, unspecified; M19.90 Unspecified osteoarthritis, unspecified site

== ENCOUNTER 2017-09-28 11:12 | Inpatient (IN) | payer MEDICAID ==
[2017-09-28 11:12] VITALS: BMI 35.2
[2017-09-28] MEDS ORDERED: Sodium Chloride 0.9% 1,000 ML IV STA ×2 (11:27→12:36)
--- NOTE | 2017-09-28 11:34 | ED PDOC ---
HPI: Abdomen Time Seen by Provider: 09/28/17 11:22 Chief Complaint (Nursing): GI Problem Chief Complaint (Provider): abdominal pain, weakness, dark stools History Per: Patient, Family History/Exam Limitations: no limitations Onset/Duration Of Symptoms: Days (3-4), Gradual Outside of [place] travel?: No Current Symptoms Are (Timing): Still Present Severity: Severe Location Of Pain/Discomfort: Diffuse Quality Of Discomfort: Sharp Associated Symptoms: Nausea, Vomiting, Diarrhea, Loss Of Appetite Exacerbating Factors: Upright Position Alleviating Factors: None Last Bowel Movement: Today Additional History Per: Prior Records Additional Complaint(s): 62yo female c/o generalized weakness, inability to get out of bed or stand, dark stools, vomiting and loss of appetite. Was admitted last week for possibly cholecystitis but TBili improved and felt better hence went home. States pain in abdomen is poorly localized but mostly upper abdomen. Denies diarrhea but notes stools appear black. Family also state she has been very depressed, unwilling to eat and losing hopefullness. No direct suicidal ideation. Past Medical History Reviewed: Historical Data, Nursing Documentation, Vital Signs Vital Signs: Last Vital Signs Temp 98.8 F 09/28/17 11:23 Pulse 46 L 09/28/17 13:00 Resp 16 09/28/17 11:23 BP 123/52 L 09/28/17 11:23 Pulse Ox 98 09/28/17 11:36 - Medical History PMH: Anemia, Anxiety, Arthritis, Asthma, Back Problems (chronic back pain), CAD , Cardia Arrhythmia, CHF, COPD, CVA (x3 with left weakness), Depression, Diverticulitis, Gastritis, HTN, Hypercholesterolemia, Osteoporosis, Peripheral Edema, Rheumatoid Arthritis, Sleep Apnea, TIA Denies: HIV, Chronic Kidney Disease, Seizures (denies) - Surgical History Surgical History: Appendectomy, Coronary Stent ([place] [facility] [place] (x2) Denies: Cholecystectomy - Family History Family History: States: Unknown Family Hx - Living Arrangements Living Arrangements: With Family - Social History Current smoker - smoking cessation education provided: No - Immunization History Hx Influenza Vaccination: Yes - Home Medications Home Medications: Ambulatory Orders Medication Instructions Recorded Nitroglycerin 0.4 mg SL Q5MIN PRN #30 tab.subl 07/28/17 Ciclopirox/Ure/Camph/Menth/Euc 1 appl TP DAILY 08/18/17 [Ciclopirox 8% Treatment Kit] Cyanocobalamin (Vitamin B-12) 1 each NS WE 08/18/17 [Nascobal] Ropinirole HCl 1 mg PO HS 08/18/17 Aspirin 81 mg PO DAILY #30 tab.chew 09/25/17 Clopidogrel [Plavix] 75 mg PO DAILY #30 tab 09/25/17 Escitalopram [Lexapro] 10 mg PO DAILY #30 tab 09/25/17 Famotidine [Heartburn Prevention] 20 mg PO Q12 #60 tablet 09/25/17 Folic Acid 1 mg PO DAILY #30 tab 09/25/17 Hydroxychloroquine Sulfate 200 mg PO Q12H #60 tablet 09/25/17 [Plaquenil] Loratadine [Claritin] 10 mg PO DAILY #30 tab 09/25/17 Metoprolol Succinate XL [Toprol XL] 25 mg PO DAILY #30 tab 09/25/17 Mirtazapine [Remeron] 30 mg PO HS #30 tab 09/25/17 Polyethylene Glycol/Polyvinyl 2 drop OU Q6 PRN #1 bottle 09/25/17 [Artificial Tears] Prednisone [Kiarra] 30 mg PO DAILY #100 tcp 09/25/17 hydrOXYzine HCl [Atarax] 10 mg PO TID #90 tab 09/25/17 Atorvastatin [Lipitor] 10 mg PO HS 09/28/17 Mupirocin 2% Ointment [Bactroban 1 appl TOP BID 09/28/17 Ointment] Pantoprazole [Protonix EC Tab] 40 mg PO DAILY PRN 09/28/17 Promethazine/Codeine 10 ml PO Q8 PRN 09/28/17 [Phenergan/Codeine Oral Syrup] - Allergies Allergies/Adverse Reactions: Allergies Allergy/AdvReac Type Severity Reaction Status Date / Time No Known Allergies Allergy Verified 09/12/17 11:35 Review of Systems Constitutional: Positive for: Weakness, Malaise Eyes: Negative for: Vision Change ENT: Negative for: Throat Pain Cardiovascular: Positive for: Palpitations. Negative for: Chest Pain Respiratory: Positive for: Shortness of Breath. Negative for: Cough Gastrointestinal: Positive for: Nausea, Vomiting, Abdominal Pain, Melena. Negative for: Constipation, Rectal Pain Genitourinary Female: Negative for: Hematuria Musculoskeletal: Positive for: Arm Pain, Back Pain, Leg Pain, Other (aches and pains). Negative for: Neck Pain Skin: Positive for: Rash (improving to chest) Neurological: Positive for: Weakness, Headache, Dizziness. Negative for: Numbness, Confusion Psych: Positive for: Depression. Negative for: Suicidal ideation Physical Exam - Reviewed Nursing Documentation Reviewed: Yes Vital Signs Reviewed: Yes - Physical Exam Appears: Positive for: Non-toxic (chronically ill appearing) Head Exam: Positive for: ATRAUMATIC, NORMAL INSPECTION, NORMOCEPHALIC Skin: Positive for: Normal Color, Warm, Pallor Eye Exam: Positive for: EOMI, Normal appearance, PERRL ENT: Positive for: Normal ENT Inspection Neck: Positive for: Normal, Painless ROM Cardiovascular/Chest: Positive for: Regular Rate, Rhythm, Chest Non Tender Respiratory: Positive for: Decreased Breath Sounds. Negative for: Rhonchi, Respiratory Distress Pulses-Radial (L): 2+ Pulses-Radial (R): 2+ Gastrointestinal/Abdominal: Positive for: Soft, Tenderness (mild upper abd tenderness) Back: Positive for: Normal Inspection Extremity: Positive for: Normal ROM, Swelling (mild anasarca). Negative for: Deformity Neurologic/Psych: Positive for: Alert, Oriented, Mood/Affect (flat). Negative for: Motor/Sensory Deficits, Aphasia, Facial Droop - Laboratory Results Result Diagrams: 09/28/17 11:28 09/28/17 13:05 - ECG ECG: Positive for: Interpreted By Ut ECG Rhythm: Positive for: Sinus Bradycardia, Nonspecific Changes Rate: 46 O2 Sat by Pulse Oximetry: 98 Pulse Ox Interpretation: Normal - Radiology X-Ray: Read By Radiologist X-Ray Interpretation: No Acute Disease - Critical Care Total Time (In Min): 45 Comments: patient required immediate bedside attention due to bradycardia Medical Decision Making Medical Decision Making: workup for vomiting w weakness and recurrent abdominal pain in setting of mutliple comorbidities initiated EKG sinus alec at 46bpm w QRS 90ms CXR no acute infiltrate per radiologist labs reviewed and new acute renal failure with hyperkalemia, elevated LFTs and mildly elev lipase Hgb 10.4, improved since discharge but potential hemoconcentration, type/screen ordered and protonix initiated IV. Additional IVF ordered, insulin/dextrose, albuterol, sodium bicarb and low dose kayexalate ordered given dehydration Repeat K+ 5.8 US abdomen obtained, no gallstones Given bradycardia, hyperkalemia, renal failure, possible hepatobiliary obstruction admit to hospitalist Dr Albright PMD covered by Dr Salas hospitalist D/w Dr Ng ICU D/w certified ophthalmic surgical assistant GI Dr Silvestre kelley Difficult IV access R external jugular vein 20g IV inserted by MD for improved peripheral access. Disposition - Clinical Impression Clinical Impression: Weakness generalized, Bradycardia, Elevated LFTs, Acute renal failure - Patient ED Disposition Is Patient to be Admitted: Yes - Disposition Disposition Time: 11:20 Condition: FAIR
[2017-09-28 11:48] LABS: BASO # 0.4 K/uL (0.0-0.2); BASO % 3.7 % (0.0-2.0); EOS % 0.3 % (0.0-4.0); HEMOGLOBIN 10.4 g/dL (12.0-16.0); LYMPH # 3.2 K/uL (1.0-4.3); MEAN CELL VOLUME 94.2 fl (81.0-99.0); MEAN CORPUSCULAR HEMOGLOBIN 27.6 pg (27.0-31.0); MEAN CORPUSCULAR HGB CONC 29.3 g/dL (33.0-37.0); MEAN PLATELET VOLUME 10.4 fl (7.2-11.7); MONO # 1.4 K/uL (0.0-0.8); MONO % 11.6 % (0.0-10.0); NEUT # 6.8 K/uL (1.8-7.0); NEUT % 57.4 % (50.0-75.0); PLATELET COUNT 120 K/uL (130-400); RBC 3.78 Mil/uL (3.80-5.20); RED CELL DISTRIBUTION WIDTH 24.8 % (11.5-14.5); WHITE BLOOD COUNT 11.9 K/uL (4.8-10.8)
[2017-09-28 11:59] LABS: INR 1.9 (0.9-1.2); PARTIAL THROMBOPLASTIN TIME 26.4 Seconds (25.6-37.1); PROTHROMBIN TIME 21.7 Seconds (9.8-13.1)
[2017-09-28 12:23] LABS: ALB/GLOB RATIO 1.3 (1.0-2.1); ALBUMIN 4.7 g/dL (3.5-5.0); CALCIUM 8.8 mg/dL (8.4-10.2); TROPONIN I 0.087 ng/mL (0.00-0.120)
--- NOTE | 2017-09-28 12:27 | RAD ---
HISTORY: SOB COMPARISON: Chest radiograph dated 08/27/2017. FINDINGS: LUNGS: Low lung volumes. No active pulmonary disease. PLEURA: No significant pleural effusion identified, no pneumothorax apparent. CARDIOVASCULAR: Cardiomediastinal silhouette stably enlarged. OSSEOUS STRUCTURES: Unchanged. VISUALIZED UPPER ABDOMEN: Normal. OTHER FINDINGS: None. IMPRESSION: No active disease.
[2017-09-28] MEDS ORDERED: Dextrose 50% SYRINGE Inj (50 ml) IVP ONE (12:28)
[2017-09-28] MEDS ORDERED: Sod Polystyrene Sulf 15 gm/60 ml Susp PO ONE (12:28)
[2017-09-28] MEDS ORDERED: Insulin Regular 100 units/ml IVP ONE (12:28)
[2017-09-28] MEDS ORDERED: Sodium Bicarbonate 7.5% (0.9 MEQ/ML) 50ML INJ IV ONE (12:28)
[2017-09-28] MEDS ORDERED: Albuterol 0.083% Inhal Sol (2.5 mg/3 mL) UD INH ONE ×2 (12:30→18:35)
[2017-09-28] MEDS ORDERED: Albuterol 0.083% Inhal Sol (2.5 mg/3 mL) UD ONE (12:44)
[2017-09-28] MEDS ORDERED: Insulin Regular 100 units/ml ONE (12:44)
[2017-09-28] MEDS ORDERED: Dextrose 50% SYRINGE Inj (50 ml) ONE (12:44)
[2017-09-28] MEDS ORDERED: Sod Polystyrene Sulf 15 gm/60 ml Susp ONE (12:45)
[2017-09-28 13:05] LABS: BANDS 1 % (0-2); LYMPHOCYTE 13 % (20-50); MONOCYTE 11 % (0-10); MYELOCYTE 1 % (0-0); NEUTROPHIL 74 % (42-75); NUCLEATED RED BLOOD CELL 11 % (0-0); TOTAL CELLS COUNTED 100
[2017-09-28 13:06] LABS: PLATELET ESTIMATE SLIGHTLY DECREASED (NORMAL)
[2017-09-28 13:08] LABS: ANISOCYTOSIS SLIGHT; GIANT PLATELETS PRESENT; LARGE PLATELETS PRESENT
[2017-09-28 13:09] LABS: BURR CELLS SLIGHT; HYPOCHROMIC SLIGHT; POIKILOCYTOSIS SLIGHT; TARGET CELLS SLIGHT
[2017-09-28 13:10] LABS: SCHISTOCYTES SLIGHT
--- NOTE | 2017-09-28 13:13 | US ---
HISTORY: persistent abd pain, ?prior cholecystitis COMPARISON: Hepatobiliary and CT scan the abdomen and pelvis performed 09/23/2017. TECHNIQUE: Sonographic evaluation of the right upper quadrant of the abdomen. FINDINGS: LIVER: Measures 15.8 cm in length. Normal echogenicity of the liver parenchyma. No mass. No intrahepatic bile duct dilatation. GALLBLADDER: Contracted gallbladder with thickened wall. COMMON BILE DUCT: Measures 4 mm. No stones. No dilatation. PANCREAS: Unremarkable as visualized. No mass. No ductal dilatation. RIGHT KIDNEY: Measures 9.4 x 4.7 x 4.8 cm in length. Normal echogenicity. No calculus, mass, or hydronephrosis. AORTA: No aneurysmal dilatation. IVC: Unremarkable. OTHER FINDINGS: None . IMPRESSION: Contracted gallbladder. No cholelithiasis.
[2017-09-28 13:44] LABS: CALCIUM 8.9 mg/dL (8.4-10.2)
--- NOTE | 2017-09-28 13:46 | CP.PCM.HP ---
History of Present Illness - History of Present Illness History of Present Illness: CC: don't feel good 62F well known to our service with past medical history of COPD, OLIVIA, severe PAH , SLE, RA, s/p splenectomy with chronic thrombocytopenia, hx CVA, CAD with PCI, hx DVT with IVC filter recently discharged 3 days ago after being admitted for abdominal pain. Patient states she still does not have much abdominal pain, however she has had worsening, persistent, moderate nausea associated with nbnb emesis as well as some scant melena. She is also very dyspneic and has decreased BS, not moving air well. Patient was found to be in acute on chronic renal failure, and has elevated LFTs as well as TBILI. US, CT, MRCP all pending at this time. Patient also bradycardic in 45-50 BPM range, with lightheadedness and generalized malaise, possibly due to taking too much Toprol at home? Pt to be admitted to ICU for symptomatic bradycardia, elevated LFTs. Close monitoring in ICU. ROS: Per HPI all other systems rviewed and negative PMD: Dr. Albright Authors Motivational: Dr. 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, HTN, Sleep apnea, asthma/COPD, dyslipidemia rheumatoid arthritis, SLE, osteoporosis , thrombocytopenia Surgeries: Carpal tunnel surgery, C- sections x 2, bunion removal, splenectomy Medications: see med rec Family history: Mother had HTN, DM and CABG, Father had CVA HTN and DM Social history: Lives in [place], does not smoke, does not drink, does not use any alcohol, used to work in leather [employer] Allergies NKDA Present on Admission - Present on Admission Any Indicators Present on Admission: Yes History of DVT/PE: Yes Past Patient History - Infectious Disease Hx of Infectious Diseases: None - Tetanus Immunizations Tetanus Immunization: Unknown - Past Medical History & Family History Past Medical History?: Yes - Past Social History Smoking Status: Never Smoked - CARDIAC Hx Cardiac Disorders: Yes Hx Cardia Arrhythmia: Yes Hx Congestive Heart Failure: Yes Hx Hypercholesterolemia: Yes Hx Hypertension: Yes Hx Peripheral Edema: Yes - PULMONARY Hx Respiratory Disorders: Yes Hx Asthma: Yes Hx Chronic Obstructive Pulmonary Disease (COPD): Yes Hx Sleep Apnea: Yes - NEUROLOGICAL Hx Neurological Disorder: Yes Hx Seizures: No (denies) Hx Transient Ischemic Attacks (TIA): Yes - HEENT Hx HEENT Problems: No - RENAL Hx Chronic Kidney Disease: No - ENDOCRINE/METABOLIC Hx Endocrine Disorders: Yes - HEMATOLOGICAL/ONCOLOGICAL Hx Blood Disorders: Yes Hx Anemia: Yes Hx Human Immunodeficiency Virus (HIV): No - INTEGUMENTARY Hx Dermatological Problems: No - MUSCULOSKELETAL/RHEUMATOLOGICAL Hx Musculoskeletal Disorders: Yes Hx Arthritis: Yes Hx Osteoporosis: Yes Hx Rheumatoid Arthritis: Yes - GASTROINTESTINAL Hx Gastrointestinal Disorders: Yes Hx Diverticulitis: Yes Hx Gastritis: Yes - GENITOURINARY/GYNECOLOGICAL Hx Genitourinary Disorders: Yes - PSYCHIATRIC Hx Psychophysiologic Disorder: Yes Hx Anxiety: Yes Hx Depression: Yes Hx Substance Use: No - SURGICAL HISTORY Hx Surgeries: Yes Hx Appendectomy: Yes Hx Cholecystectomy: No Hx [place] [facility] [place] - ANESTHESIA Hx Anesthesia: Yes Hx Anesthesia Reactions: No Hx Malignant Hyperthermia: No Meds Allergies/Adverse Reactions: Allergies Allergy/AdvReac Type Severity Reaction Status Date / Time No Known Allergies Allergy Verified 09/12/17 11:35 Physical Exam - Constitutional Additional comments: Vitals Reviewed GEN: WDWN, awake, fatigued compared to baseline HEENT: NCAT, PERRL, EOMI HEART: bradycardic, reg rhythm, +S1S2 LUNG: diminished breath sounds bilaterally, not moving air well, mild respiratory distress ABD: soft, NT, ND, no HSM, no MASSES EXT: normal pulses, no edema NEURO: AAOX3, strength equal, bilateral upper and lower extremities SKIN: warm, dry PSYCH: anxious, normal affect Results - Vital Signs Recent Vital Signs: Last Vital Signs Temp 98.8 F 09/28/17 11:23 Pulse 46 L 09/28/17 13:00 Resp 16 09/28/17 11:23 BP 123/52 L 09/28/17 11:23 Pulse Ox 98 09/28/17 11:36 - Labs Result Diagrams: 09/28/17 11:28 09/28/17 13:05 Labs: Laboratory Results - last 24 hr 09/28/17 09/28/17 09/28/17 11:28 11:28 11:28 WBC 11.9 H D RBC 3.78 L Hgb 10.4 L Hct 35.6 MCV 94.2 MCH 27.6 MCHC 29.3 L RDW 24.8 H Plt Count 120 L MPV 10.4 Neut % (Auto) 57.4 Lymph % (Auto) 27.0 [place] % (Auto) 11.6 H Eos % (Auto) 0.3 Baso % (Auto) 3.7 H Neut # (Auto) 6.8 Lymph # (Auto) 3.2 [place] # (Auto) 1.4 H Eos # (Auto) 0.0 Baso # (Auto) 0.4 H Neutrophils % (Manual) 74 Band Neutrophils % 1 Lymphocytes % (Manual) 13 L Monocytes % (Manual) 11 H Myelocytes % 1 H Nucleated RBC % 11 H Platelet Estimate Slightly decreased L Large Platelets Present Giant Platelets Present Hypochromasia (manual) Slight Poikilocytosis (manual Slight Anisocytosis (manual) Slight Target Cells Slight [place] Cells Slight Schistocytes Slight PT INR APTT Sodium 146 Potassium 6.7 H* D Chloride 110 H Carbon Dioxide 17 L Anion Gap 26 H BUN 58 H Creatinine 2.2 H Est GFR ( Amer) 27 Est GFR (Non-Af Amer) 22 Random Glucose 64 L Calcium 8.8 Total Bilirubin 3.3 H AST 715 H D ALT 387 H D Alkaline Phosphatase 175 H D Troponin I 0.0870 Total Protein 8.3 H Albumin 4.7 Globulin 3.6 Albumin/Globulin Ratio 1.3 Lipase 358 H Blood Type Cancelled Antibody Screen Cancelled BBK History Checked Cancelled 09/28/17 09/28/17 11:28 13:05 WBC RBC Hgb Hct MCV MCH MCHC RDW Plt Count MPV Neut % (Auto) Lymph % (Auto) [place] % (Auto) Eos % (Auto) Baso % (Auto) Neut # (Auto) Lymph # (Auto) [place] # (Auto) Eos # (Auto) Baso # (Auto) Neutrophils % (Manual) Band Neutrophils % Lymphocytes % (Manual) Monocytes % (Manual) Myelocytes % Nucleated RBC % Platelet Estimate Large Platelets Giant Platelets Hypochromasia (manual) Poikilocytosis (manual Anisocytosis (manual) Target Cells [place] Cells Schistocytes PT 21.7 H INR 1.9 H APTT 26.4 Sodium Potassium Chloride Carbon Dioxide Anion Gap BUN Creatinine Est GFR ( Amer) Est GFR (Non-Af Amer) Random Glucose Calcium Total Bilirubin AST ALT Alkaline Phosphatase Troponin I Total Protein Albumin Globulin Albumin/Globulin Ratio Lipase Blood Type Antibody Screen BBK History Checked Patient has bt Assessment & Plan - Assessment and Plan (Free Text) Plan: 62F well known to our service with past medical history of COPD, OLIVIA, severe PAH , SLE, RA, s/p splenectomy with chronic thrombocytopenia, hx CVA, CAD with PCI, hx DVT with IVC filter recently discharged 3 days ago after being admitted for abdominal pain. Patient states she still does not have much abdominal pain, however she has had worsening, persistent, moderate nausea associated with nbnb emesis as well as some scant melena. She is also very dyspneic and has decreased BS, not moving air well. Patient was found to be in acute on chronic renal failure, and has elevated LFTs as well as TBILI. US, CT, MRCP all pending at this time. Patient also bradycardic in 45-50 BPM range, with lightheadedness and generalized malaise, possibly due to taking too much Toprol at home? Pt to be admitted to ICU for symptomatic bradycardia, elevated LFTs. Close monitoring in ICU. Symptomatic Bradycardia monitor in ICU, possibly due to Toprol use EKG bradycardia, T wave flattening and inversions low voltage, prolonged QTc 45-50 BPM on admission Elevated LFTs, Hyperbilirubinemia no abdominal pain US/CT/MRCP pending GI and Surgery consults obtained in ED Acute COPD exacerbation pt very diminished, not moving air well, saturating baseline continue steroids and duonebs Mild Melena pt has history of multiple GIB on Pepcid and Protonix at home, continue Protonix 40mg q12 INR 1.9, mild coagulopathy 2/2 hepatic insufficiency? hold ASA and Plavix for now GI consult Mild Hyperkalemia no peaked T waves on EKG repeat BMP in AM SLE, dementia, depression continue home meds Plaquenil, Atarax, Remeron, Lexapro
[2017-09-28] MEDS ORDERED: Albuterol-Ipratrop 3 mg / 0.5 (3 ml) UD INH PRN (13:48)
[2017-09-28] MEDS ORDERED: Pantoprazole 40 mg EC Tab PO PRN (13:50)
--- NOTE | 2017-09-28 14:32 | CT ---
PROCEDURE: CT Abdomen and Pelvis without intravenous contrast HISTORY: elev LFTS possible cholecystitis COMPARISON: Abdomen pelvis CT with contrast 09/23/2017. TECHNIQUE: Helical CT of the abdomen and pelvis was performed without oral or intravenous contrast as per referring physician request. Contrast dose: None Radiation dose: Total exam DLP = 926.65 mGy-cm. This CT exam was performed using one or more of the following dose reduction techniques: Automated exposure control, adjustment of the mA and/or kV according to patient size, and/or use of iterative reconstruction technique. FINDINGS: LOWER THORAX: Mild right and minimal left pleural effusions are identified once again. Cardiomegaly is reiterated. Cellulitis type pattern versus mastitis or even neoplasm appears to affect the left breast which is only partially captured in this abdomen pelvis CT examination. LIVER: Unremarkable. No gross lesion or ductal dilatation. GALLBLADDER AND BILE DUCTS: Gallbladder appears largely decompressed in the interval with vicarious excretion of iodinated contrast material identified within the gallbladder lumen. No overt pattern of radiodense cholelithiasis. PANCREAS: Unremarkable. No gross lesion or ductal dilatation. SPLEEN: Congenital absence versus prior splenectomy again evident. ADRENALS: Unremarkable. No mass. KIDNEYS AND URETERS: Unremarkable. No hydronephrosis. No solid mass. VASCULATURE: Unremarkable. No aortic aneurysm. BOWEL: Unremarkable. No obstruction. No gross mural thickening. APPENDIX: Poorly evaluated due to local ascites. PERITONEUM: Mild increase in pelvic ascites identified which trace perihepatic ascites evident extending into the right pericolic gutter of uncertain origin. LYMPH NODES: Unremarkable. No enlarged lymph nodes. BLADDER: Unremarkable. REPRODUCTIVE: Unremarkable. BONES: No acute fracture. OTHER FINDINGS: None. IMPRESSION: 1. Lack of contrast agents limits evaluation. No overt pattern of cholecystitis. Gallbladder appears partially contracted compared to the prior exam when it was more significantly more distended. 2. Mild increase in pelvic ascites. Trace perihepatic ascites extending into right pericolic gutter of uncertain origin. This obscures evaluation of the appendix. 3. Prior splenectomy or congenital absence again evident.
[2017-09-28 15:15] LABS: SQUAMOUS EPITHIAL 14 /hpf (0-5); URINE BILIRUBIN NEGATIVE (NEGATIVE); URINE BLOOD NEGATIVE (NEGATIVE); URINE CLARITY CLOUDY (Clear); URINE COLOR AMBER (YELLOW); URINE GLUCOSE (UA) NEG (Normal); URINE LEUKOCYTE ESTERASE SMALL Leu/uL (Negative); URINE PROTEIN 100 mg/dL (NEGATIVE); URINE UROBILINOGEN 0.2-1.0 mg/dL (0.2-1.0)
--- NOTE | 2017-09-28 16:12 | CP.CCUPN ---
CCU Subjective - Physician Review Subjective (Free Text): ICU Admission Consultation: 62F admitted with cc N/V, generalized weakness and recently d/abraham from [facility] 3 days ago after eval for acute zain. Denies any recurrent major abdominal discomfort, +diarrhea with black stools, +anorexia, + SOB / hyperventilation; no chest pain, no fevers / +chills/ no sweats. Other vitals and I/O's reviewed. No fever spikes nor any low grade temps noted. ROS: No other pertinent negs or positives on 10+ system review obtainable due to intubation. Allergies: NKDA Home Meds: Asa, Lipitor. Plavix, B12, Lexapro, folate, Plaquenil, Atarax, Toprol XL, Remeron, Protonix, Prednisone, Roprinirole PMSFH: COPD, CAD with NE x4, SLE, RA, CVA x4 with L hemiparesis, HTN. All other Nursing and physician documentation reviewed to date; no new pertinent info noted relevant to current medical problems. EXAM- HEENT: no icterus, no gaze preference NECK: No JVD, supple, carotids equal upstroke bilat/no bruits CHEST: decreased BS bases, no wheezes audible HEART: regular, distant, S1S2, no rubs or murmurs ABD: soft, obese, no distention, no tympany, no palp tenderness, BS hypoactive EXT: no peripheral/ digital cyanosis, no calf tenderness or palpable cords, distal pulses intact and symmetrical. NEURO: left hemiparesis SKIN: no rashes, warm and dry. LABS: WBC= 11.9 HGB= 10.4 PLTs= 120K INR= 1.9 Ro=743 K= 5.8 CL= 109 HCO3= 21 BUN/Cr= 61/2.2 BS= 69 Tbili= 3.3 AST = 715 ALT= 387 AP = 175 Lipase = 358 IMPRESSION / MAJOR PROBLEMS NOW: 1. Metabolic encephalopathy 2 Azotemia, r/o Sepsis 2 Biliary tract disease. 2. r/o reassess for Acute Zain vs. Cholangitis. 3. Dehydration with Azotemia ( [id number]-ey-CLG) and Hyperkalemia 4. Bradycardia 2 Hyperkalemia and BB effects. 5. Chronic Disease Anemia: with melena reported by patient PLAN: 1. Cautious IVF hydration, fluid challenges. I/Os monitoring, check urine spot lytes. 2. K-diversion IV cocktail administered once in ER, add Kayexalate PO as tolerated. Check serum ammonia level. 3. Would hold all DEVELOPMENT EDITOR-active meds including Lexapro, Remeron, Roprinirole. 4. Continue steroids. 5. Hold Plaquenil due to elevated LFTS, until etiology for LFT elevation determined. 6. Consider empiric abx coverage against hospital acquired organisms, too. 7. Continue BiPAP support at night as at home. 8. Serial H/H monitoring, PPi coverage. 9. Re-image GB, Pancreas, biliary tree. CCU Objective - Vital Signs / Intake & Output Vital Signs (Last 4 hours): Vital Signs Temp Pulse Resp BP Pulse Ox 09/28/17 15:36 97.9 F 45 L 22 153/71 H 09/28/17 15:31 97.9 F 45 L 22 153/71 H 94 L 09/28/17 14:27 46 L 98 09/28/17 13:00 46 L Intake and Output (Last 8hrs): Intake & Output 09/28/17 09/28/17 09/28/17 06:59 14:59 22:59 Weight 153 lb
[2017-09-28 18:25] LABS: ALB/GLOB RATIO 1.4 (1.0-2.1); ALBUMIN 4.3 g/dL (3.5-5.0); BILIRUBIN,DIRECT 1.8 mg/ml (0.0-0.4); CALCIUM 8.8 mg/dL (8.4-10.2)
[2017-09-28] MEDS: Dextrose 5%/0.45% NS 1,000 ML IV SCH (18:53)
[2017-09-28] MEDS: Albuterol-Ipratrop 3 mg / 0.5 (3 ml) UD INH SCH ×3 (19:00→23:21)
[2017-09-28 20:49] LABS: HEMOGLOBIN 9.7 g/dL (12.0-16.0); MEAN CELL VOLUME 94.7 fl (81.0-99.0); MEAN CORPUSCULAR HEMOGLOBIN 27.7 pg (27.0-31.0); MEAN CORPUSCULAR HGB CONC 29.3 g/dL (33.0-37.0); RBC 3.49 Mil/uL (3.80-5.20); RED CELL DISTRIBUTION WIDTH 24.2 % (11.5-14.5); WHITE BLOOD COUNT 7.6 K/uL (4.8-10.8)
[2017-09-28] MEDS: Pantoprazole 40 mg EC Tab PO SCH (21:50)
[2017-09-28] MEDS: MethylPREDNISolone 40 mg Vial IVP SCH (21:52)
[2017-09-28] MEDS ORDERED: methylPREDNISolone 40 MG in Sodium Chloride 0.9% 50 ML IVPB SCH (22:00)
[2017-09-28] MEDS ORDERED: ROPINIROLE HCL 1 MG PO SCH (22:00)
--- NOTE | 2017-09-29 00:40 | CP.PCM.CON ---
History of Present Illness - History of Present Illness History of Present Illness: Surgery 62 F w HO CHF COPD acaculus cholecystitis, multiple CVA, anxiety came with vomiting. PT was recently discharged after dx of acalculus cholecystitis. HIDA was neg at that time. REtunred with vomiting. Her K was found to be high. US shows thicken GB wall , no stone. decompressed GB. consistent with last time. Also found to have elevated LFT. Pt is claustrophobic and refused MRCP unless it is open MRI. Endoscopy was cancelled last time because of her multiple cormorbidity and high risk for anesthesia. Denies fever, abd pain. 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, HTN, Sleep apnea, asthma/COPD, dyslipidemia rheumatoid arthritis, SLE, osteoporosis , thrombocytopenia Surgeries: Carpal tunnel surgery, C- sections x 2, bunion removal, splenectomy Medications: see med rec Family history: Mother had HTN, DM and CABG, Father had CVA HTN and DM Social history: Lives in [place], does not smoke, does not drink, does not use any alcohol, used to work in [employer] Review of Systems - Review of Systems Review of Systems: see HPI - Constitutional Constitutional: absent: Anorexia, Chills - Cardiovascular Cardiovascular: absent: Chest Pain Past Patient History - Infectious Disease Hx of Infectious Diseases: None - Tetanus Immunizations Tetanus Immunization: Unknown - Past Medical History & Family History Past Medical History?: Yes - Past Social History Smoking Status: Former Smoker - CARDIAC Hx Cardiac Disorders: Yes Hx Cardia Arrhythmia: Yes Hx Congestive Heart Failure: Yes Hx Hypertension: Yes Hx Peripheral Vascular Disease: Yes Other/Comment: stents - PULMONARY Hx Respiratory Disorders: Yes Hx Asthma: Yes Hx Chronic Obstructive Pulmonary Disease (COPD): Yes Hx Lung Cancer: No Hx Pneumonia: No Hx Sleep Apnea: Yes - NEUROLOGICAL Hx Neurological Disorder: Yes HX Cerebrovascular Accident: Yes - HEENT Hx HEENT Problems: Yes Hx Cataracts: Yes - RENAL Hx Chronic Kidney Disease: No - ENDOCRINE/METABOLIC Hx Endocrine Disorders: No Hx Diabetes Mellitus Type 1: No Hx Diabetes Mellitus Type 2: No - HEMATOLOGICAL/ONCOLOGICAL Hx Blood Disorders: Yes Hx AIDS: No Hx Anemia: Yes Hx Human Immunodeficiency Virus (HIV): No Other/Comment: DVT - INTEGUMENTARY Hx Dermatological Problems: No - MUSCULOSKELETAL/RHEUMATOLOGICAL Hx Musculoskeletal Disorders: Yes Hx Falls: No Hx Osteoporosis: Yes Hx Rheumatoid Arthritis: Yes Hx Unsteady Gait: Yes - GASTROINTESTINAL Hx Gastrointestinal Disorders: Yes Hx Diverticulitis: Yes Hx Gall Bladder Disease: Yes Hx Gastritis: Yes Hx Nausea: Yes Hx Vomiting: Yes - GENITOURINARY/GYNECOLOGICAL Hx Genitourinary Disorders: Yes Hx Incontinence: No - PSYCHIATRIC Hx Psychophysiologic Disorder: Yes Hx Anxiety: Yes Hx Bipolar Disorder: No Hx Depression: Yes Hx Emotional Abuse: No Hx Hallucinations: No Hx Panic Symptoms: No Hx Post Traumatic Stress Disorder: No Hx Psychosis: No Hx Physical Abuse: No Hx Schizophrenia: No Hx Sexual Abuse: No Hx Substance Use: No - SURGICAL HISTORY Hx Surgeries: Yes Hx Appendectomy: Yes Hx Cholecystectomy: No Hx [place] [facility] [place] [facility] [place] ANESTHESIA Hx Anesthesia: Yes Hx Anesthesia Reactions: No Hx Malignant Hyperthermia: No Has any member of the family had a problem w/ anesthesia?: No Meds Allergies/Adverse Reactions: Allergies Allergy/AdvReac Type Severity Reaction Status Date / Time No Known Allergies Allergy Verified 09/12/17 11:35 - Medications Medications: Current Medications Albuterol/Ipratropium (Duoneb 3 Mg/0.5 Mg (3 Ml) Ud) 3 ml INH RQ4 [place] Last Admin: 09/28/17 23:21 Dose: 3 ml Albuterol/Ipratropium (Duoneb 3 Mg/0.5 Mg (3 Ml) Ud) 3 ml INH RQ2 PRN PRN Reason: Shortness of Breath Artificial Tears (Artificial Tears) 2 drop OU Q6 PRN PRN Reason: Dry eyes Atorvastatin Calcium (Lipitor) 10 mg PO HS [facility] Last Admin: 09/28/17 21:51 Dose: 10 mg Folic Acid (Folic Acid) 1 mg PO DAILY [facility] Hydroxyzine HCl (Atarax) 10 mg PO TID PRN PRN Reason: Itching / Pruritus Piperacillin Sod/Tazobactam (Sod 2.25 gm/ Sodium Chloride) 100 mls @ 100 mls/ hr IVPB Q8 [place] PRN Reason: Protocol Last Admin: 09/28/17 18:46 Dose: 100 mls/hr Dextrose/Sodium Chloride (Dextrose 5%/0.45% Ns 1000 Ml) 1,000 mls @ 125 mls/hr IV .Q8H [facility] Stop: 09/29/17 18:38 Last Admin: 09/28/17 18:53 Dose: 125 mls/hr Methylprednisolone (Solu-Medrol) 40 mg IVP Q6 [facility] Last Admin: 09/28/17 21:52 Dose: 40 mg Pantoprazole Sodium (Protonix Ec Tab) 40 mg PO Q12 [facility] Last Admin: 09/28/17 21:50 Dose: 40 mg Physical Exam - Constitutional Appears: No Acute Distress - Head Exam Head Exam: ATRAUMATIC, NORMAL INSPECTION, NORMOCEPHALIC - Eye Exam Eye Exam: EOMI, Normal appearance, PERRL Pupil Exam: NORMAL ACCOMODATION, PERRL - ENT Exam ENT Exam: Mucous Membranes Moist, Normal Exam - Neck Exam Neck exam: Positive for: Normal Inspection - Respiratory Exam Respiratory Exam: NORMAL BREATHING PATTERN - Cardiovascular Exam Cardiovascular Exam: Bradycardia. absent: REGULAR RHYTHM - GI/Abdominal Exam GI & Abdominal Exam: Soft. absent: Distended, Firm, Guarding, Hernia, Tenderness - Extremities Exam Extremities exam: Positive for: normal inspection - Back Exam Back exam: NORMAL INSPECTION - Neurological Exam Neurological exam: Alert, CN II-XII Intact, Normal Gait, Oriented x3, Reflexes Normal - Psychiatric Exam Psychiatric exam: Normal Affect, Normal Mood - Skin Skin Exam: Dry, Intact, Normal Color, Warm Results - Vital Signs Recent Vital Signs: Last Vital Signs Temp 97.8 F 09/29/17 00:00 Pulse 54 L 09/29/17 00:00 Resp 28 H 09/29/17 00:00 BP 140/78 09/29/17 00:00 Pulse Ox 98 09/29/17 00:00 - Labs Result Diagrams: 09/28/17 20:04 09/28/17 18:01 Labs: Laboratory Results - last 24 hr 09/28/17 09/28/17 09/28/17 11:28 11:28 11:28 WBC 11.9 H D RBC 3.78 L Hgb 10.4 L Hct 35.6 MCV 94.2 MCH 27.6 MCHC 29.3 L RDW 24.8 H Plt Count 120 L MPV 10.4 Neut % (Auto) 57.4 Lymph % (Auto) 27.0 Mckenzie % (Auto) 11.6 H Eos % (Auto) 0.3 Baso % (Auto) 3.7 H Neut # (Auto) 6.8 Lymph # (Auto) 3.2 Mckenzie # (Auto) 1.4 H Eos # (Auto) 0.0 Baso # (Auto) 0.4 H Neutrophils % (Manual) 74 Band Neutrophils % 1 Lymphocytes % (Manual) 13 L Monocytes % (Manual) 11 H Myelocytes % 1 H Nucleated RBC % 11 H Platelet Estimate Slightly decreased L Large Platelets Present Giant Platelets Present Hypochromasia (manual) Slight Poikilocytosis (manual Slight Anisocytosis (manual) Slight Target Cells Slight Clayton Cells Slight Schistocytes Slight PT INR APTT Sodium 146 Potassium 6.7 H* D Chloride 110 H Carbon Dioxide 17 L Anion Gap 26 H BUN 58 H Creatinine 2.2 H Est GFR ( Amer) 27 Est GFR (Non-Af Amer) 22 Random Glucose 64 L Calcium 8.8 Total Bilirubin 3.3 H Direct Bilirubin GGT AST 715 H D ALT 387 H D Alkaline Phosphatase 175 H D Ammonia Troponin I 0.0870 Total Protein 8.3 H Albumin 4.7 Globulin 3.6 Albumin/Globulin Ratio 1.3 Lipase 358 H Urine Color Urine Clarity Urine pH Ur Specific Hamilton Urine Protein Urine Glucose (UA) Urine Ketones Urine Blood Urine Nitrate Urine Bilirubin Urine Urobilinogen Ur Leukocyte Esterase Urine RBC (Auto) Urine Microscopic WBC Ur Squamous Epith Cells Hyaline Casts Blood Type Cancelled Antibody Screen Cancelled BBK History Checked Cancelled 09/28/17 09/28/17 09/28/17 11:28 13:05 13:05 WBC RBC Hgb Hct MCV MCH MCHC RDW Plt Count MPV Neut % (Auto) Lymph % (Auto) Mckenzie % (Auto) Eos % (Auto) Baso % (Auto) Neut # (Auto) Lymph # (Auto) Mckenzie # (Auto) Eos # (Auto) Baso # (Auto) Neutrophils % (Manual) Band Neutrophils % Lymphocytes % (Manual) Monocytes % (Manual) Myelocytes % Nucleated RBC % Platelet Estimate Large Platelets Giant Platelets Hypochromasia (manual) Poikilocytosis (manual Anisocytosis (manual) Target Cells Clayton Cells Schistocytes PT 21.7 H INR 1.9 H APTT 26.4 Sodium 148 Potassium 5.8 H Chloride 109 H Carbon Dioxide 21 L Anion Gap 24 H BUN 61 H Creatinine 2.2 H Est GFR ( Amer) 27 Est GFR (Non-Af Amer) 22 Random Glucose 69 Calcium 8.9 Total Bilirubin Direct Bilirubin GGT AST ALT Alkaline Phosphatase Ammonia Troponin I Total Protein Albumin Globulin Albumin/Globulin Ratio Lipase Urine Color Urine Clarity Urine pH Ur Specific [place] Urine Protein Urine Glucose (UA) Urine Ketones Urine Blood Urine Nitrate Urine Bilirubin Urine Urobilinogen Ur Leukocyte Esterase Urine RBC (Auto) Urine Microscopic WBC Ur Squamous Epith Cells Hyaline Casts Blood Type B POSITIVE Antibody Screen Negative BBK History Checked Patient has bt 09/28/17 09/28/17 09/28/17 14:55 18:01 18:01 WBC RBC Hgb Hct MCV MCH MCHC RDW Plt Count MPV Neut % (Auto) Lymph % (Auto) Mckenzie % (Auto) Eos % (Auto) Baso % (Auto) Neut # (Auto) Lymph # (Auto) Mckenzie # (Auto) Eos # (Auto) Baso # (Auto) Neutrophils % (Manual) Band Neutrophils % Lymphocytes % (Manual) Monocytes % (Manual) Myelocytes % Nucleated RBC % Platelet Estimate Large Platelets Giant Platelets Hypochromasia (manual) Poikilocytosis (manual Anisocytosis (manual) Target Cells [place] Cells Schistocytes PT INR APTT Sodium 151 H Potassium 5.2 H Chloride 111 H Carbon Dioxide 21 L Anion Gap 24 H BUN 61 H Creatinine 2.2 H Est GFR ( Amer) 27 Est GFR (Non-Af Amer) 22 Random Glucose 98 Calcium 8.8 Total Bilirubin 2.7 H Direct Bilirubin 1.8 H GGT 293 H AST 733 H ALT 443 H Alkaline Phosphatase 163 H Ammonia 25 Troponin I Total Protein 7.5 Albumin 4.3 Globulin 3.2 Albumin/Globulin Ratio 1.4 Lipase Urine Color Lisa Urine Clarity Cloudy Urine pH 5.0 Ur Specific Hamilton 1.019 Urine Protein 100 Urine Glucose (UA) Neg Urine Ketones Negative Urine Blood Negative Urine Nitrate Negative Urine Bilirubin Negative Urine Urobilinogen 0.2-1.0 Ur Leukocyte Esterase Small Urine RBC (Auto) 4 H Urine Microscopic WBC 10 H Ur Squamous Epith Cells 14 H Hyaline Casts 6-10 H Blood Type Antibody Screen BBK History Checked 09/28/17 20:04 WBC 7.6 RBC 3.49 L Hgb 9.7 L Hct 33.1 L MCV 94.7 MCH 27.7 MCHC 29.3 L RDW 24.2 H Plt Count 95 L D MPV Neut % (Auto) Lymph % (Auto) Mckenzie % (Auto) Eos % (Auto) Baso % (Auto) Neut # (Auto) Lymph # (Auto) Mckenzie # (Auto) Eos # (Auto) Baso # (Auto) Neutrophils % (Manual) Band Neutrophils % Lymphocytes % (Manual) Monocytes % (Manual) Myelocytes % Nucleated RBC % Platelet Estimate Large Platelets Giant Platelets Hypochromasia (manual) Poikilocytosis (manual Anisocytosis (manual) Target Cells Clayton Cells Schistocytes PT INR APTT Sodium Potassium Chloride Carbon Dioxide Anion Gap BUN Creatinine Est GFR ( Amer) Est GFR (Non-Af Amer) Random Glucose Calcium Total Bilirubin Direct Bilirubin GGT AST ALT Alkaline Phosphatase Ammonia Troponin I Total Protein Albumin Globulin Albumin/Globulin Ratio Lipase Urine Color Urine Clarity Urine pH Ur Specific [place] Urine Protein Urine Glucose (UA) Urine Ketones Urine Blood Urine Nitrate Urine Bilirubin Urine Urobilinogen Ur Leukocyte Esterase Urine RBC (Auto) Urine Microscopic WBC Ur Squamous Epith Cells Hyaline Casts Blood Type Antibody Screen BBK History Checked Assessment & Plan - Assessment and Plan (Free Text) Assessment: vomiting with elevated LFT : tbli 3.3 AST 700s Lipase 350 US thicken GB wall, no stones HIDA was neg recent admission Admitted for bradycardia and elevated potassium GI on board f/u MRCP Monitor labs VS WIll DW Dr. Persaud
[2017-09-29] MEDS: Albuterol-Ipratrop 3 mg / 0.5 (3 ml) UD INH SCH ×7 (04:41→23:54)
[2017-09-29] MEDS: MethylPREDNISolone 40 mg Vial IVP SCH ×4 (05:02→21:36)
[2017-09-29 05:34] LABS: ALB/GLOB RATIO 1.4 (1.0-2.1); ALBUMIN 4.1 g/dL (3.5-5.0); INR 1.9 (0.9-1.2); PARTIAL THROMBOPLASTIN TIME 28.7 Seconds (25.6-37.1); PROTHROMBIN TIME 21.6 Seconds (9.8-13.1)
[2017-09-29 05:45] LABS: HEMOGLOBIN 9.3 g/dL (12.0-16.0); MEAN CELL VOLUME 92.8 fl (81.0-99.0); MEAN CORPUSCULAR HGB CONC 30.1 g/dL (33.0-37.0); RBC 3.33 Mil/uL (3.80-5.20); RED CELL DISTRIBUTION WIDTH 24.1 % (11.5-14.5)
[2017-09-29 05:51] LABS: WHITE BLOOD COUNT 5.4 K/uL (4.8-10.8)
[2017-09-29 06:02] LABS: ABG ALLEN TEST YES; ARTERIAL BLOOD GAS HEMOGLOBIN 9.1 g/dL (11.7-17.4); ARTERIAL BLOOD GAS O2 CAPACITY 12.5 mL/dL (16-24); ARTERIAL BLOOD GAS O2 CONTENT 11.9 ML/dL (15-23); ARTERIAL BLOOD GAS O2 SAT 95.4 % (95-98); ARTERIAL BLOOD GAS PCO2 42 mm/Hg (35-45); ARTERIAL BLOOD GAS PH 7.31 (7.35-7.45); ARTERIAL BLOOD GAS PO2 69 mm/Hg (80-100); ARTERIAL BLOOD GAS TCO2 22.4 mmol/L (22-28)
--- NOTE | 2017-09-29 08:37 | CP.PCM.CON ---
History of Present Illness - History of Present Illness History of Present Illness: looks comfortable BP stable, no SOB, no nausea or vomiting now, Ox sat 100% on 2 L N/C Needs MRCP, d/w GI fellow, pt will be given 0.5 mg Ativan before PRCP and she agreed for MRCP. She had refused earlier as she was claustrophobic and needed something to calm her down during the procedure. Don't want to give larger dose , as she is DRN and cannot be intubated in case develops resp failure with Ativan. Past Patient History - Infectious Disease Hx of Infectious Diseases: None - Tetanus Immunizations Tetanus Immunization: Unknown - Past Medical History & Family History Past Medical History?: Yes - Past Social History Smoking Status: Former Smoker - CARDIAC Hx Cardiac Disorders: Yes Hx Cardia Arrhythmia: Yes Hx Congestive Heart Failure: Yes Hx Hypertension: Yes Hx Peripheral Vascular Disease: Yes Other/Comment: stents - PULMONARY Hx Respiratory Disorders: Yes Hx Asthma: Yes Hx Chronic Obstructive Pulmonary Disease (COPD): Yes Hx Lung Cancer: No Hx Pneumonia: No Hx Sleep Apnea: Yes - NEUROLOGICAL Hx Neurological Disorder: Yes HX Cerebrovascular Accident: Yes - HEENT Hx HEENT Problems: Yes Hx Cataracts: Yes - RENAL Hx Chronic Kidney Disease: No - ENDOCRINE/METABOLIC Hx Endocrine Disorders: No Hx Diabetes Mellitus Type 1: No Hx Diabetes Mellitus Type 2: No - HEMATOLOGICAL/ONCOLOGICAL Hx Blood Disorders: Yes Hx AIDS: No Hx Anemia: Yes Hx Human Immunodeficiency Virus (HIV): No Other/Comment: DVT - INTEGUMENTARY Hx Dermatological Problems: No - MUSCULOSKELETAL/RHEUMATOLOGICAL Hx Musculoskeletal Disorders: Yes Hx Falls: No Hx Osteoporosis: Yes Hx Rheumatoid Arthritis: Yes Hx Unsteady Gait: Yes - GASTROINTESTINAL Hx Gastrointestinal Disorders: Yes Hx Diverticulitis: Yes Hx Gall Bladder Disease: Yes Hx Gastritis: Yes Hx Nausea: Yes Hx Vomiting: Yes - GENITOURINARY/GYNECOLOGICAL Hx Genitourinary Disorders: Yes Hx Incontinence: No - PSYCHIATRIC Hx Psychophysiologic Disorder: Yes Hx Anxiety: Yes Hx Bipolar Disorder: No Hx Depression: Yes Hx Emotional Abuse: No Hx Hallucinations: No Hx Panic Symptoms: No Hx Post Traumatic Stress Disorder: No Hx Psychosis: No Hx Physical Abuse: No Hx Schizophrenia: No Hx Sexual Abuse: No Hx Substance Use: No - SURGICAL HISTORY Hx Surgeries: Yes Hx Appendectomy: Yes Hx Cholecystectomy: No [place]x [place] [place] [facility] [place] ANESTHESIA Hx Anesthesia: Yes Hx Anesthesia Reactions: No Hx Malignant Hyperthermia: No Has any member of the family had a problem w/ anesthesia?: No Meds Allergies/Adverse Reactions: Allergies Allergy/AdvReac Type Severity Reaction Status Date / Time No Known Allergies Allergy Verified 09/12/17 11:35 - Medications Medications: Current Medications Albuterol/Ipratropium (Duoneb 3 Mg/0.5 Mg (3 Ml) Ud) 3 ml INH RQ4 [place] Last Admin: 09/29/17 08:04 Dose: 3 ml Albuterol/Ipratropium (Duoneb 3 Mg/0.5 Mg (3 Ml) Ud) 3 ml INH RQ2 PRN PRN Reason: Shortness of Breath Artificial Tears (Artificial Tears) 2 drop OU Q6 PRN PRN Reason: Dry eyes Atorvastatin Calcium (Lipitor) 10 mg PO HS [place] Last Admin: 09/28/17 21:51 Dose: 10 mg Folic Acid (Folic Acid) 1 mg PO DAILY [place] Hydroxyzine HCl (Atarax) 10 mg PO TID PRN PRN Reason: Itching / Pruritus Piperacillin Sod/Tazobactam (Sod 2.25 gm/ Sodium Chloride) 100 mls @ 100 mls/ hr IVPB Q8 [place] PRN Reason: Protocol Last Admin: 09/29/17 05:01 Dose: 100 mls/hr Dextrose/Sodium Chloride (Dextrose 5%/0.45% Ns 1000 Ml) 1,000 mls @ 125 mls/hr IV .Q8H [place] Stop: 09/29/17 18:38 Last Admin: 09/28/17 18:53 Dose: 125 mls/hr Lorazepam (Ativan) 0.5 mg IVP STAT STA Stop: 09/29/17 08:32 Methylprednisolone (Solu-Medrol) 40 mg IVP Q6 [place] Last Admin: 09/29/17 05:02 Dose: 40 mg Pantoprazole Sodium (Protonix Ec Tab) 40 mg PO Q12 [place] Last Admin: 09/28/17 21:50 Dose: 40 mg Results - Vital Signs Recent Vital Signs: Last Vital Signs Temp 97.8 F 09/29/17 04:00 Pulse 63 09/29/17 06:00 Resp 28 H 09/29/17 06:00 BP 135/79 09/29/17 06:00 Pulse Ox 99 09/29/17 06:00 - Labs Result Diagrams: 09/29/17 04:25 09/29/17 04:25 Labs: Laboratory Results - last 24 hr 09/28/17 09/28/17 09/28/17 11:28 11:28 11:28 WBC 11.9 H D RBC 3.78 L Hgb 10.4 L Hct 35.6 MCV 94.2 MCH 27.6 MCHC 29.3 L RDW 24.8 H Plt Count 120 L MPV 10.4 Neut % (Auto) 57.4 Lymph % (Auto) 27.0 [place] % (Auto) 11.6 H Eos % (Auto) 0.3 Baso % (Auto) 3.7 H Neut # (Auto) 6.8 Lymph # (Auto) 3.2 [place] # (Auto) 1.4 H Eos # (Auto) 0.0 Baso # (Auto) 0.4 H Neutrophils % (Manual) 74 Band Neutrophils % 1 Lymphocytes % (Manual) 13 L Monocytes % (Manual) 11 H Myelocytes % 1 H Nucleated RBC % 11 H Platelet Estimate Slightly decreased L Large Platelets Present Giant Platelets Present Hypochromasia (manual) Slight Poikilocytosis (manual Slight Anisocytosis (manual) Slight Target Cells Slight [place] Cells Slight Schistocytes Slight PT INR APTT pCO2 pO2 HCO3 ABG pH ABG Total CO2 ABG O2 Saturation ABG O2 Content ABG Base Excess ABG Hemoglobin ABG Carboxyhemoglobin POC ABG HHb (Measured) ABG Methemoglobin ABG O2 Capacity Gio Test A-a O2 Difference Hgb O2 Saturation FiO2 Crit Value Called To Crit Value Called By Crit Value Read Back Blood Gas Notified Time Sodium 146 Potassium 6.7 H* D Chloride 110 H Carbon Dioxide 17 L Anion Gap 26 H BUN 58 H Creatinine 2.2 H Est GFR ( Amer) 27 Est GFR (Non-Af Amer) 22 Random Glucose 64 L Calcium 8.8 Total Bilirubin 3.3 H Direct Bilirubin GGT AST 715 H D ALT 387 H D Alkaline Phosphatase 175 H D Ammonia Troponin I 0.0870 Total Protein 8.3 H Albumin 4.7 Globulin 3.6 Albumin/Globulin Ratio 1.3 Lipase 358 H Urine Color Urine Clarity Urine pH Ur Specific [place] Urine Protein Urine Glucose (UA) Urine Ketones Urine Blood Urine Nitrate Urine Bilirubin Urine Urobilinogen Ur Leukocyte Esterase Urine RBC (Auto) Urine Microscopic WBC Ur Squamous Epith Cells Hyaline Casts Blood Type Cancelled Antibody Screen Cancelled BBK History Checked Cancelled 09/28/17 09/28/17 09/28/17 11:28 13:05 13:05 WBC RBC Hgb Hct MCV MCH MCHC RDW Plt Count MPV Neut % (Auto) Lymph % (Auto) [place] % (Auto) Eos % (Auto) Baso % (Auto) Neut # (Auto) Lymph # (Auto) [place] # (Auto) Eos # (Auto) Baso # (Auto) Neutrophils % (Manual) Band Neutrophils % Lymphocytes % (Manual) Monocytes % (Manual) Myelocytes % Nucleated RBC % Platelet Estimate Large Platelets Giant Platelets Hypochromasia (manual) Poikilocytosis (manual Anisocytosis (manual) Target Cells [place] Cells Schistocytes PT 21.7 H INR 1.9 H APTT 26.4 pCO2 pO2 HCO3 ABG pH ABG Total CO2 ABG O2 Saturation ABG O2 Content ABG Base Excess ABG Hemoglobin ABG Carboxyhemoglobin POC ABG HHb (Measured) ABG Methemoglobin ABG O2 Capacity Gio Test A-a O2 Difference Hgb O2 Saturation FiO2 Crit Value Called To Crit Value Called By Crit Value Read Back Blood Gas Notified Time Sodium 148 Potassium 5.8 H Chloride 109 H Carbon Dioxide 21 L Anion Gap 24 H BUN 61 H Creatinine 2.2 H Est GFR ( Amer) 27 Est GFR (Non-Af Amer) 22 Random Glucose 69 Calcium 8.9 Total Bilirubin Direct Bilirubin GGT AST ALT Alkaline Phosphatase Ammonia Troponin I Total Protein Albumin Globulin Albumin/Globulin Ratio Lipase Urine Color Urine Clarity Urine pH Ur Specific [place] Urine Protein Urine Glucose (UA) Urine Ketones Urine Blood Urine Nitrate Urine Bilirubin Urine Urobilinogen Ur Leukocyte Esterase Urine RBC (Auto) Urine Microscopic WBC Ur Squamous Epith Cells Hyaline Casts Blood Type B POSITIVE Antibody Screen Negative BBK History Checked Patient has bt 09/28/17 09/28/17 09/28/17 14:55 18:01 18:01 WBC RBC Hgb Hct MCV MCH MCHC RDW Plt Count MPV Neut % (Auto) Lymph % (Auto) [place] % (Auto) Eos % (Auto) Baso % (Auto) Neut # (Auto) Lymph # (Auto) [place] # (Auto) Eos # (Auto) Baso # (Auto) Neutrophils % (Manual) Band Neutrophils % Lymphocytes % (Manual) Monocytes % (Manual) Myelocytes % Nucleated RBC % Platelet Estimate Large Platelets Giant Platelets Hypochromasia (manual) Poikilocytosis (manual Anisocytosis (manual) Target Cells [place] Cells Schistocytes PT INR APTT pCO2 pO2 HCO3 ABG pH ABG Total CO2 ABG O2 Saturation ABG O2 Content ABG Base Excess ABG Hemoglobin ABG Carboxyhemoglobin POC ABG HHb (Measured) ABG Methemoglobin ABG O2 Capacity Gio Test A-a O2 Difference Hgb O2 Saturation FiO2 Crit Value Called To Crit Value Called By Crit Value Read Back Blood Gas Notified Time Sodium 151 H Potassium 5.2 H Chloride 111 H Carbon Dioxide 21 L Anion Gap 24 H BUN 61 H Creatinine 2.2 H Est GFR ( Amer) 27 Est GFR (Non-Af Amer) 22 Random Glucose 98 Calcium 8.8 Total Bilirubin 2.7 H Direct Bilirubin 1.8 H GGT 293 H AST 733 H ALT 443 H Alkaline Phosphatase 163 H Ammonia 25 Troponin I Total Protein 7.5 Albumin 4.3 Globulin 3.2 Albumin/Globulin Ratio 1.4 Lipase Urine Color Lisa Urine Clarity Cloudy Urine pH 5.0 Ur Specific [place] 1.019 Urine Protein 100 Urine Glucose (UA) Neg Urine Ketones Negative Urine Blood Negative Urine Nitrate Negative Urine Bilirubin Negative Urine Urobilinogen 0.2-1.0 Ur Leukocyte Esterase Small Urine RBC (Auto) 4 H Urine Microscopic WBC 10 H Ur Squamous Epith Cells 14 H Hyaline Casts 6-10 H Blood Type Antibody Screen BBK History Checked 09/28/17 09/29/17 09/29/17 20:04 04:25 04:25 WBC 7.6 5.4 RBC 3.49 L 3.33 L Hgb 9.7 L 9.3 L Hct 33.1 L 30.9 L MCV 94.7 92.8 MCH 27.7 28.0 MCHC 29.3 L 30.1 L RDW 24.2 H 24.1 H Plt Count 95 L D 87 L MPV Neut % (Auto) Lymph % (Auto) [place] % (Auto) Eos % (Auto) Baso % (Auto) Neut # (Auto) Lymph # (Auto) [place] # (Auto) Eos # (Auto) Baso # (Auto) Neutrophils % (Manual) Band Neutrophils % Lymphocytes % (Manual) Monocytes % (Manual) Myelocytes % Nucleated RBC % Platelet Estimate Large Platelets Giant Platelets Hypochromasia (manual) Poikilocytosis (manual Anisocytosis (manual) Target Cells [place] Cells Schistocytes PT INR APTT pCO2 pO2 HCO3 ABG pH ABG Total CO2 ABG O2 Saturation ABG O2 Content ABG Base Excess ABG Hemoglobin ABG Carboxyhemoglobin POC ABG HHb (Measured) ABG Methemoglobin ABG O2 Capacity Gio Test A-a O2 Difference Hgb O2 Saturation FiO2 Crit Value Called To Crit Value Called By Crit Value Read Back Blood Gas Notified Time Sodium 149 H Potassium 4.5 Chloride 110 H Carbon Dioxide 21 L Anion Gap 23 H BUN 62 H Creatinine 2.2 H Est GFR ( Amer) 27 Est GFR (Non-Af Amer) 22 Random Glucose 205 H Calcium 8.0 L Total Bilirubin 2.1 H Direct Bilirubin GGT AST 633 H ALT 443 H Alkaline Phosphatase 135 H Ammonia Troponin I Total Protein 7.0 Albumin 4.1 Globulin 2.9 Albumin/Globulin Ratio 1.4 Lipase Urine Color Urine Clarity Urine pH Ur Specific [place] Urine Protein Urine Glucose (UA) Urine Ketones Urine Blood Urine Nitrate Urine Bilirubin Urine Urobilinogen Ur Leukocyte Esterase Urine RBC (Auto) Urine Microscopic WBC Ur Squamous Epith Cells Hyaline Casts Blood Type Antibody Screen BBK History Checked 09/29/17 09/29/17 04:25 05:49 WBC RBC Hgb Hct MCV MCH MCHC RDW Plt Count MPV Neut % (Auto) Lymph % (Auto) [place] % (Auto) Eos % (Auto) Baso % (Auto) Neut # (Auto) Lymph # (Auto) [place] # (Auto) Eos # (Auto) Baso # (Auto) Neutrophils % (Manual) Band Neutrophils % Lymphocytes % (Manual) Monocytes % (Manual) Myelocytes % Nucleated RBC % Platelet Estimate Large Platelets Giant Platelets Hypochromasia (manual) Poikilocytosis (manual Anisocytosis (manual) Target Cells [place] Cells Schistocytes PT 21.6 H INR 1.9 H APTT 28.7 pCO2 42 pO2 69 L HCO3 21.0 ABG pH 7.31 L ABG Total CO2 22.4 ABG O2 Saturation 95.4 ABG O2 Content 11.9 L ABG Base Excess -4.9 L ABG Hemoglobin 9.1 L ABG Carboxyhemoglobin 2.0 H POC ABG HHb (Measured) 4.4 ABG Methemoglobin 1.6 ABG O2 Capacity 12.5 L Gio Test Yes A-a O2 Difference 107.0 Hgb O2 Saturation 92.0 L FiO2 32.0 Crit Value Called To Dr natalya downey Crit Value Called By Claudy Crit Value Read Back Y Blood Gas Notified Time 601 Sodium Potassium Chloride Carbon Dioxide Anion Gap BUN Creatinine Est GFR ( Amer) Est GFR (Non-Af Amer) Random Glucose Calcium Total Bilirubin Direct Bilirubin GGT AST ALT Alkaline Phosphatase Ammonia Troponin I Total Protein Albumin Globulin Albumin/Globulin Ratio Lipase Urine Color Urine Clarity Urine pH Ur Specific [place] Urine Protein Urine Glucose (UA) Urine Ketones Urine Blood Urine Nitrate Urine Bilirubin Urine Urobilinogen Ur Leukocyte Esterase Urine RBC (Auto) Urine Microscopic WBC Ur Squamous Epith Cells Hyaline Casts Blood Type Antibody Screen BBK History Checked
--- NOTE | 2017-09-29 08:42 | CP.CCUPN ---
CCU Subjective - Physician Review Events Since Last Encounter (Free Text): 09/29/17 08:40 looks comfortable BP stable, no SOB, no nausea or vomiting now, Ox sat 100% on 2 L N/C Needs MRCP, d/w GI fellow, pt will be given 0.5 mg Ativan before PRCP and she agreed for MRCP. She had refused earlier as she was claustrophobic and needed something to calm her down during the procedure. Don't want to give larger dose , as she is DRN and cannot be intubated in case develops resp failure with Ativan. CCU Objective - Vital Signs / Intake & Output Vital Signs (Last 4 hours): Vital Signs Temp Pulse Resp BP Pulse Ox 09/29/17 08:00 98.4 F 62 5 L 94/55 L 100 09/29/17 06:00 63 28 H 135/79 99 09/29/17 05:00 57 L 26 H 114/64 100 09/29/17 04:42 60 Intake and Output (Last 8hrs): Intake & Output 09/28/17 09/29/17 09/29/17 22:59 06:59 14:59 Intake Total 2750 880 Output Total 150 Balance 2750 730 Intake: IV 2500 750 Intake, Piggyback 250 100 Oral 30 Output: Urine 150 Urine, Voided 150 Other: # Voids Urine, Voided 1 - Physical Exam Narrative Physical Exam (Free Text): 09/29/17 08:40 P/E Neck: No JVD Lungs: No roncki, crackles heart: No gallop Abdomen: soft, non-tender Ext; No edema Heart: no gallop - Medications Active Medications: Active Medications Generic Name Dose Route Start Last Admin Trade Name Freq PRN Reason Stop Dose Admin Albuterol/Ipratropium 3 ml 09/28/17 16:00 09/29/17 08:04 Duoneb 3 Mg/0.5 Mg (3 Ml) Ud INH 3 ml RQ4 [place] Administration Albuterol/Ipratropium 3 ml 09/28/17 13:48 Duoneb 3 Mg/0.5 Mg (3 Ml) Ud INH RQ2 PRN Shortness of Breath Artificial Tears 2 drop 09/28/17 13:50 Artificial Tears OU Q6 PRN Dry eyes Atorvastatin Calcium 10 mg 09/28/17 22:00 09/28/17 21:51 Lipitor PO 10 mg HS [place] Administration Folic Acid 1 mg 09/29/17 09:00 Folic Acid PO DAILY [place] Hydroxyzine HCl 10 mg 09/28/17 17:03 Atarax PO TID PRN Itching / Pruritus Piperacillin Sod/Tazobactam 100 mls @ 100 mls/hr 09/28/17 18:00 09/29/17 05: 01 Sod 2.25 gm/ Sodium Chloride IVPB 100 mls/hr Q8 [place] Administration Protocol Dextrose/Sodium Chloride 1,000 mls @ 125 mls/hr 09/28/17 18:45 09/28/17 18:53 Dextrose 5%/0.45% Ns 1000 Ml IV 09/29/17 18:38 125 mls/hr .Q8H [place] Administration Lorazepam 0.5 mg 09/29/17 08:31 Ativan IVP 09/29/17 08:32 STAT STA Methylprednisolone 40 mg 09/28/17 22:00 09/29/17 05:02 Solu-Medrol IVP 40 mg Q6 [place] Administration Pantoprazole Sodium 40 mg 09/28/17 21:00 09/28/17 21:50 Protonix Ec Tab PO 40 mg Q12 [place] Administration - Patient Studies Lab Studies: Lab Studies 09/29/17 09/29/17 09/29/17 Range/Units 05:49 04:25 04:25 WBC (4.8-10.8) K/uL RBC (3.80-5.20) Mil/uL Hgb (12.0-16.0) g/dL Hct (34.0-47.0) % MCV (81.0-99.0) fl MCH (27.0-31.0) pg MCHC (33.0-37.0) g/dL RDW (11.5-14.5) % Plt Count (130-400) K/uL MPV (7.2-11.7) fl Neut % (Auto) (50.0-75.0) % Lymph % (Auto) (20.0-40.0) % [place] % (Auto) (0.0-10.0) % Eos % (Auto) (0.0-4.0) % Baso % (Auto) (0.0-2.0) % Neut # (Auto) (1.8-7.0) K/uL Lymph # (Auto) (1.0-4.3) K/uL [place] # (Auto) (0.0-0.8) K/uL Eos # (Auto) (0.0-0.7) K/uL Baso # (Auto) (0.0-0.2) K/uL Neutrophils % (Manual) (42-75) % Band Neutrophils % (0-2) % Lymphocytes % (Manual) (20-50) % Monocytes % (Manual) (0-10) % Myelocytes % (0-0) % Nucleated RBC % (0-0) % Platelet Estimate (NORMAL) Large Platelets Giant Platelets Hypochromasia (manual) Poikilocytosis (manual Anisocytosis (manual) Target Cells [place] Cells Schistocytes PT 21.6 H (9.8-13.1) Seconds INR 1.9 H (0.9-1.2) APTT 28.7 (25.6-37.1) Seconds pCO2 42 (35-45) mm/Hg pO2 69 L (80-100) mm/Hg HCO3 21.0 (21-28) mmol/L ABG pH 7.31 L (7.35-7.45) ABG Total CO2 22.4 (22-28) mmol/L ABG O2 Saturation 95.4 (95-98) % ABG O2 Content 11.9 L (15-23) ML/dL ABG Base Excess -4.9 L (-2.0-3.0) mmol/L ABG Hemoglobin 9.1 L (11.7-17.4) g/dL ABG Carboxyhemoglobin 2.0 H (0.5-1.5) % POC ABG HHb (Measured) 4.4 (0.0-5.0) % ABG Methemoglobin 1.6 (0.0-3.0) % ABG O2 Capacity 12.5 L (16-24) mL/dL Gio Test Yes A-a O2 Difference 107.0 mm/Hg Hgb O2 Saturation 92.0 L (95.0-98.0) % FiO2 32.0 % Crit Value Called To Dr natalya downey Crit Value Called By Claudy Crit Value Read Back Y Blood Gas Notified Time 601 Sodium 149 H (132-148) mmol/l Potassium 4.5 (3.6-5.0) MMOL/L Chloride 110 H (98-107) mmol/L Carbon Dioxide 21 L (22-30) mmol/L Anion Gap 23 H (10-20) BUN 62 H (7-17) mg/dl Creatinine 2.2 H (0.7-1.2) mg/dl Est GFR ( Amer) 27 Est GFR (Non-Af Amer) 22 Random Glucose 205 H (65-105) mg/dL Calcium 8.0 L (8.4-10.2) mg/dL Total Bilirubin 2.1 H (0.2-1.3) mg/dl Direct Bilirubin (0.0-0.4) mg/ml GGT (8-78) U/L AST 633 H (14-36) U/L ALT 443 H (9-52) U/L Alkaline Phosphatase 135 H (38-126) U/L Ammonia (11-51) umo/L Troponin I (0.00-0.120) ng/mL Total Protein 7.0 (6.3-8.2) G/DL Albumin 4.1 (3.5-5.0) g/dL Globulin 2.9 (2.2-3.9) gm/dL Albumin/Globulin Ratio 1.4 (1.0-2.1) Lipase (23-300) U/L Urine Color (YELLOW) Urine Clarity (Clear) Urine pH (5.0-8.0) Ur Specific [employer] (1.003-1.030) Urine Protein (NEGATIVE) mg/dL Urine Glucose (UA) (Normal) mg/dL Urine Ketones (NEGATIVE) mg/dL Urine Blood (NEGATIVE) Urine Nitrate (NEGATIVE) Urine Bilirubin (NEGATIVE) Urine Urobilinogen (0.2-1.0) mg/dL Ur Leukocyte Esterase (Negative) Marcelo/uL Urine RBC (Auto) (0-3) /hpf Urine Microscopic WBC (0-5) /hpf Ur Squamous Epith Cells (0-5) /hpf Hyaline Casts (0-2) /hpf Blood Type Antibody Screen BBK History Checked 09/29/17 09/28/17 09/28/17 Range/Units 04:25 20:04 18:01 WBC 5.4 7.6 (4.8-10.8) K/uL RBC 3.33 L 3.49 L (3.80-5.20) Mil/uL Hgb 9.3 L 9.7 L (12.0-16.0) g/dL Hct 30.9 L 33.1 L (34.0-47.0) % MCV 92.8 94.7 (81.0-99.0) fl MCH 28.0 27.7 (27.0-31.0) pg MCHC 30.1 L 29.3 L (33.0-37.0) g/dL RDW 24.1 H 24.2 H (11.5-14.5) % Plt Count 87 L 95 L D (130-400) K/uL MPV (7.2-11.7) fl Neut % (Auto) (50.0-75.0) % Lymph % (Auto) (20.0-40.0) % [place] % (Auto) (0.0-10.0) % Eos % (Auto) (0.0-4.0) % Baso % (Auto) (0.0-2.0) % Neut # (Auto) (1.8-7.0) K/uL Lymph # (Auto) (1.0-4.3) K/uL [place] # (Auto) (0.0-0.8) K/uL Eos # (Auto) (0.0-0.7) K/uL Baso # (Auto) (0.0-0.2) K/uL Neutrophils % (Manual) (42-75) % Band Neutrophils % (0-2) % Lymphocytes % (Manual) (20-50) % Monocytes % (Manual) (0-10) % Myelocytes % (0-0) % Nucleated RBC % (0-0) % Platelet Estimate (NORMAL) Large Platelets Giant Platelets Hypochromasia (manual) Poikilocytosis (manual Anisocytosis (manual) Target Cells [place] Cells Schistocytes PT (9.8-13.1) Seconds INR (0.9-1.2) APTT (25.6-37.1) Seconds pCO2 (35-45) mm/Hg pO2 (80-100) mm/Hg HCO3 (21-28) mmol/L ABG pH (7.35-7.45) ABG Total CO2 (22-28) mmol/L ABG O2 Saturation (95-98) % ABG O2 Content (15-23) ML/dL ABG Base Excess (-2.0-3.0) mmol/L ABG Hemoglobin (11.7-17.4) g/dL ABG Carboxyhemoglobin (0.5-1.5) % POC ABG HHb (Measured) (0.0-5.0) % ABG Methemoglobin (0.0-3.0) % ABG O2 Capacity (16-24) mL/dL Gio Test A-a O2 Difference mm/Hg Hgb O2 Saturation (95.0-98.0) % FiO2 % Crit Value Called To Crit Value Called By Crit Value Read Back Blood Gas Notified Time Sodium (132-148) mmol/l Potassium (3.6-5.0) MMOL/L Chloride (98-107) mmol/L Carbon Dioxide (22-30) mmol/L Anion Gap (10-20) BUN (7-17) mg/dl Creatinine (0.7-1.2) mg/dl Est GFR ( Amer) Est GFR (Non-Af Amer) Random Glucose (65-105) mg/dL Calcium (8.4-10.2) mg/dL Total Bilirubin (0.2-1.3) mg/dl Direct Bilirubin (0.0-0.4) mg/ml GGT (8-78) U/L AST (14-36) U/L ALT (9-52) U/L Alkaline Phosphatase (38-126) U/L Ammonia 25 (11-51) umo/L Troponin I (0.00-0.120) ng/mL Total Protein (6.3-8.2) G/DL Albumin (3.5-5.0) g/dL Globulin (2.2-3.9) gm/dL Albumin/Globulin Ratio (1.0-2.1) Lipase (23-300) U/L Urine Color (YELLOW) Urine Clarity (Clear) Urine pH (5.0-8.0) Ur Specific [employer] (1.003-1.030) Urine Protein (NEGATIVE) mg/dL Urine Glucose (UA) (Normal) mg/dL Urine Ketones (NEGATIVE) mg/dL Urine Blood (NEGATIVE) Urine Nitrate (NEGATIVE) Urine Bilirubin (NEGATIVE) Urine Urobilinogen (0.2-1.0) mg/dL Ur Leukocyte Esterase (Negative) Marcelo/uL Urine RBC (Auto) (0-3) /hpf Urine Microscopic WBC (0-5) /hpf Ur Squamous Epith Cells (0-5) /hpf Hyaline Casts (0-2) /hpf Blood Type Antibody Screen BBK History Checked 09/28/17 09/28/17 09/28/17 Range/Units 18:01 14:55 13:05 WBC (4.8-10.8) K/uL RBC (3.80-5.20) Mil/uL Hgb (12.0-16.0) g/dL Hct (34.0-47.0) % MCV (81.0-99.0) fl MCH (27.0-31.0) pg MCHC (33.0-37.0) g/dL RDW (11.5-14.5) % Plt Count (130-400) K/uL MPV (7.2-11.7) fl Neut % (Auto) (50.0-75.0) % Lymph % (Auto) (20.0-40.0) % [place] % (Auto) (0.0-10.0) % Eos % (Auto) (0.0-4.0) % Baso % (Auto) (0.0-2.0) % Neut # (Auto) (1.8-7.0) K/uL Lymph # (Auto) (1.0-4.3) K/uL [place] # (Auto) (0.0-0.8) K/uL Eos # (Auto) (0.0-0.7) K/uL Baso # (Auto) (0.0-0.2) K/uL Neutrophils % (Manual) (42-75) % Band Neutrophils % (0-2) % Lymphocytes % (Manual) (20-50) % Monocytes % (Manual) (0-10) % Myelocytes % (0-0) % Nucleated RBC % (0-0) % Platelet Estimate (NORMAL) Large Platelets Giant Platelets Hypochromasia (manual) Poikilocytosis (manual Anisocytosis (manual) Target Cells [place] Cells Schistocytes PT (9.8-13.1) Seconds INR (0.9-1.2) APTT (25.6-37.1) Seconds pCO2 (35-45) mm/Hg pO2 (80-100) mm/Hg HCO3 (21-28) mmol/L ABG pH (7.35-7.45) ABG Total CO2 (22-28) mmol/L ABG O2 Saturation (95-98) % ABG O2 Content (15-23) ML/dL ABG Base Excess (-2.0-3.0) mmol/L ABG Hemoglobin (11.7-17.4) g/dL ABG Carboxyhemoglobin (0.5-1.5) % POC ABG HHb (Measured) (0.0-5.0) % ABG Methemoglobin (0.0-3.0) % ABG O2 Capacity (16-24) mL/dL Gio Test A-a O2 Difference mm/Hg Hgb O2 Saturation (95.0-98.0) % FiO2 % Crit Value Called To Crit Value Called By Crit Value Read Back Blood Gas Notified Time Sodium 151 H (132-148) mmol/l Potassium 5.2 H (3.6-5.0) MMOL/L Chloride 111 H (98-107) mmol/L Carbon Dioxide 21 L (22-30) mmol/L Anion Gap 24 H (10-20) BUN 61 H (7-17) mg/dl Creatinine 2.2 H (0.7-1.2) mg/dl Est GFR ( Amer) 27 Est GFR (Non-Af Amer) 22 Random Glucose 98 (65-105) mg/dL Calcium 8.8 (8.4-10.2) mg/dL Total Bilirubin 2.7 H (0.2-1.3) mg/dl Direct Bilirubin 1.8 H (0.0-0.4) mg/ml GGT 293 H (8-78) U/L AST 733 H (14-36) U/L ALT 443 H (9-52) U/L Alkaline Phosphatase 163 H (38-126) U/L Ammonia (11-51) umo/L Troponin I (0.00-0.120) ng/mL Total Protein 7.5 (6.3-8.2) G/DL Albumin 4.3 (3.5-5.0) g/dL Globulin 3.2 (2.2-3.9) gm/dL Albumin/Globulin Ratio 1.4 (1.0-2.1) Lipase (23-300) U/L Urine Color Lisa (YELLOW) Urine Clarity Cloudy (Clear) Urine pH 5.0 (5.0-8.0) Ur Specific [employer] 1.019 (1.003-1.030) Urine Protein 100 (NEGATIVE) mg/dL Urine Glucose (UA) Neg (Normal) mg/dL Urine Ketones Negative (NEGATIVE) mg/dL Urine Blood Negative (NEGATIVE) Urine Nitrate Negative (NEGATIVE) Urine Bilirubin Negative (NEGATIVE) Urine Urobilinogen 0.2-1.0 (0.2-1.0) mg/dL Ur Leukocyte Esterase Small (Negative) Marcelo/uL Urine RBC (Auto) 4 H (0-3) /hpf Urine Microscopic WBC 10 H (0-5) /hpf Ur Squamous Epith Cells 14 H (0-5) /hpf Hyaline Casts 6-10 H (0-2) /hpf Blood Type B POSITIVE Antibody Screen Negative BBK History Checked Patient has bt 09/28/17 09/28/17 09/28/17 Range/Units 13:05 11:28 11:28 WBC 11.9 H D (4.8-10.8) K/uL RBC 3.78 L (3.80-5.20) Mil/uL Hgb 10.4 L (12.0-16.0) g/dL Hct 35.6 (34.0-47.0) % MCV 94.2 (81.0-99.0) fl MCH 27.6 (27.0-31.0) pg MCHC 29.3 L (33.0-37.0) g/dL RDW 24.8 H (11.5-14.5) % Plt Count 120 L (130-400) K/uL MPV 10.4 (7.2-11.7) fl Neut % (Auto) 57.4 (50.0-75.0) % Lymph % (Auto) 27.0 (20.0-40.0) % [place] % (Auto) 11.6 H (0.0-10.0) % Eos % (Auto) 0.3 (0.0-4.0) % Baso % (Auto) 3.7 H (0.0-2.0) % Neut # (Auto) 6.8 (1.8-7.0) K/uL Lymph # (Auto) 3.2 (1.0-4.3) K/uL [place] # (Auto) 1.4 H (0.0-0.8) K/uL Eos # (Auto) 0.0 (0.0-0.7) K/uL Baso # (Auto) 0.4 H (0.0-0.2) K/uL Neutrophils % (Manual) 74 (42-75) % Band Neutrophils % 1 (0-2) % Lymphocytes % (Manual) 13 L (20-50) % Monocytes % (Manual) 11 H (0-10) % Myelocytes % 1 H (0-0) % Nucleated RBC % 11 H (0-0) % Platelet Estimate Slightly decreased L (NORMAL) Large Platelets Present Giant Platelets Present Hypochromasia (manual) Slight Poikilocytosis (manual Slight Anisocytosis (manual) Slight Target Cells Slight [place] Cells Slight Schistocytes Slight PT 21.7 H (9.8-13.1) Seconds INR 1.9 H (0.9-1.2) APTT 26.4 (25.6-37.1) Seconds pCO2 (35-45) mm/Hg pO2 (80-100) mm/Hg HCO3 (21-28) mmol/L ABG pH (7.35-7.45) ABG Total CO2 (22-28) mmol/L ABG O2 Saturation (95-98) % ABG O2 Content (15-23) ML/dL ABG Base Excess (-2.0-3.0) mmol/L ABG Hemoglobin (11.7-17.4) g/dL ABG Carboxyhemoglobin (0.5-1.5) % POC ABG HHb (Measured) (0.0-5.0) % ABG Methemoglobin (0.0-3.0) % ABG O2 Capacity (16-24) mL/dL Gio Test A-a O2 Difference mm/Hg Hgb O2 Saturation (95.0-98.0) % FiO2 % Crit Value Called To Crit Value Called By Crit Value Read Back Blood Gas Notified Time Sodium 148 (132-148) mmol/l Potassium 5.8 H (3.6-5.0) MMOL/L Chloride 109 H (98-107) mmol/L Carbon Dioxide 21 L (22-30) mmol/L Anion Gap 24 H (10-20) BUN 61 H (7-17) mg/dl Creatinine 2.2 H (0.7-1.2) mg/dl Est GFR ( Amer) 27 Est GFR (Non-Af Amer) 22 Random Glucose 69 (65-105) mg/dL Calcium 8.9 (8.4-10.2) mg/dL Total Bilirubin (0.2-1.3) mg/dl Direct Bilirubin (0.0-0.4) mg/ml GGT (8-78) U/L AST (14-36) U/L ALT (9-52) U/L Alkaline Phosphatase (38-126) U/L Ammonia (11-51) umo/L Troponin I (0.00-0.120) ng/mL Total Protein (6.3-8.2) G/DL Albumin (3.5-5.0) g/dL Globulin (2.2-3.9) gm/dL Albumin/Globulin Ratio (1.0-2.1) Lipase (23-300) U/L Urine Color (YELLOW) Urine Clarity (Clear) Urine pH (5.0-8.0) Ur Specific [employer] (1.003-1.030) Urine Protein (NEGATIVE) mg/dL Urine Glucose (UA) (Normal) mg/dL Urine Ketones (NEGATIVE) mg/dL Urine Blood (NEGATIVE) Urine Nitrate (NEGATIVE) Urine Bilirubin (NEGATIVE) Urine Urobilinogen (0.2-1.0) mg/dL Ur Leukocyte Esterase (Negative) Marcelo/uL Urine RBC (Auto) (0-3) /hpf Urine Microscopic WBC (0-5) /hpf Ur Squamous Epith Cells (0-5) /hpf Hyaline Casts (0-2) /hpf Blood Type Antibody Screen BBK History Checked 09/28/17 09/28/17 Range/Units 11:28 11:28 WBC (4.8-10.8) K/uL RBC (3.80-5.20) Mil/uL Hgb (12.0-16.0) g/dL Hct (34.0-47.0) % MCV (81.0-99.0) fl MCH (27.0-31.0) pg MCHC (33.0-37.0) g/dL RDW (11.5-14.5) % Plt Count (130-400) K/uL MPV (7.2-11.7) fl Neut % (Auto) (50.0-75.0) % Lymph % (Auto) (20.0-40.0) % [place] % (Auto) (0.0-10.0) % Eos % (Auto) (0.0-4.0) % Baso % (Auto) (0.0-2.0) % Neut # (Auto) (1.8-7.0) K/uL Lymph # (Auto) (1.0-4.3) K/uL [place] # (Auto) (0.0-0.8) K/uL Eos # (Auto) (0.0-0.7) K/uL Baso # (Auto) (0.0-0.2) K/uL Neutrophils % (Manual) (42-75) % Band Neutrophils % (0-2) % Lymphocytes % (Manual) (20-50) % Monocytes % (Manual) (0-10) % Myelocytes % (0-0) % Nucleated RBC % (0-0) % Platelet Estimate (NORMAL) Large Platelets Giant Platelets Hypochromasia (manual) Poikilocytosis (manual Anisocytosis (manual) Target Cells [place] Cells Schistocytes PT (9.8-13.1) Seconds INR (0.9-1.2) APTT (25.6-37.1) Seconds pCO2 (35-45) mm/Hg pO2 (80-100) mm/Hg HCO3 (21-28) mmol/L ABG pH (7.35-7.45) ABG Total CO2 (22-28) mmol/L ABG O2 Saturation (95-98) % ABG O2 Content (15-23) ML/dL ABG Base Excess (-2.0-3.0) mmol/L ABG Hemoglobin (11.7-17.4) g/dL ABG Carboxyhemoglobin (0.5-1.5) % POC ABG HHb (Measured) (0.0-5.0) % ABG Methemoglobin (0.0-3.0) % ABG O2 Capacity (16-24) mL/dL Gio Test A-a O2 Difference mm/Hg Hgb O2 Saturation (95.0-98.0) % FiO2 % Crit Value Called To Crit Value Called By Crit Value Read Back Blood Gas Notified Time Sodium 146 (132-148) mmol/l Potassium 6.7 H* D (3.6-5.0) MMOL/L Chloride 110 H (98-107) mmol/L Carbon Dioxide 17 L (22-30) mmol/L Anion Gap 26 H (10-20) BUN 58 H (7-17) mg/dl Creatinine 2.2 H (0.7-1.2) mg/dl Est GFR ( Amer) 27 Est GFR (Non-Af Amer) 22 Random Glucose 64 L (65-105) mg/dL Calcium 8.8 (8.4-10.2) mg/dL Total Bilirubin 3.3 H (0.2-1.3) mg/dl Direct Bilirubin (0.0-0.4) mg/ml GGT (8-78) U/L AST 715 H D (14-36) U/L ALT 387 H D (9-52) U/L Alkaline Phosphatase 175 H D (38-126) U/L Ammonia (11-51) umo/L Troponin I 0.0870 (0.00-0.120) ng/mL Total Protein 8.3 H (6.3-8.2) G/DL Albumin 4.7 (3.5-5.0) g/dL Globulin 3.6 (2.2-3.9) gm/dL Albumin/Globulin Ratio 1.3 (1.0-2.1) Lipase 358 H (23-300) U/L Urine Color (YELLOW) Urine Clarity (Clear) Urine pH (5.0-8.0) Ur Specific [employer] (1.003-1.030) Urine Protein (NEGATIVE) mg/dL Urine Glucose (UA) (Normal) mg/dL Urine Ketones (NEGATIVE) mg/dL Urine Blood (NEGATIVE) Urine Nitrate (NEGATIVE) Urine Bilirubin (NEGATIVE) Urine Urobilinogen (0.2-1.0) mg/dL Ur Leukocyte Esterase (Negative) Marcelo/uL Urine RBC (Auto) (0-3) /hpf Urine Microscopic WBC (0-5) /hpf Ur Squamous Epith Cells (0-5) /hpf Hyaline Casts (0-2) /hpf Blood Type Cancelled Antibody Screen Cancelled BBK History Checked Cancelled Laboratory Results - last 24 hr 09/28/17 09/28/17 09/28/17 11:28 11:28 11:28 WBC 11.9 H D RBC 3.78 L Hgb 10.4 L Hct 35.6 MCV 94.2 MCH 27.6 MCHC 29.3 L RDW 24.8 H Plt Count 120 L MPV 10.4 Neut % (Auto) 57.4 Lymph % (Auto) 27.0 [place] % (Auto) 11.6 H Eos % (Auto) 0.3 Baso % (Auto) 3.7 H Neut # (Auto) 6.8 Lymph # (Auto) 3.2 [place] # (Auto) 1.4 H Eos # (Auto) 0.0 Baso # (Auto) 0.4 H Neutrophils % (Manual) 74 Band Neutrophils % 1 Lymphocytes % (Manual) 13 L Monocytes % (Manual) 11 H Myelocytes % 1 H Nucleated RBC % 11 H Platelet Estimate Slightly decreased L Large Platelets Present Giant Platelets Present Hypochromasia (manual) Slight Poikilocytosis (manual Slight Anisocytosis (manual) Slight Target Cells Slight [place] Cells Slight Schistocytes Slight PT INR APTT pCO2 pO2 HCO3 ABG pH ABG Total CO2 ABG O2 Saturation ABG O2 Content ABG Base Excess ABG Hemoglobin ABG Carboxyhemoglobin POC ABG HHb (Measured) ABG Methemoglobin ABG O2 Capacity Gio Test A-a O2 Difference Hgb O2 Saturation FiO2 Crit Value Called To Crit Value Called By Crit Value Read Back Blood Gas Notified Time Sodium 146 Potassium 6.7 H* D Chloride 110 H Carbon Dioxide 17 L Anion Gap 26 H BUN 58 H Creatinine 2.2 H Est GFR ( Amer) 27 Est GFR (Non-Af Amer) 22 Random Glucose 64 L Calcium 8.8 Total Bilirubin 3.3 H Direct Bilirubin GGT AST 715 H D ALT 387 H D Alkaline Phosphatase 175 H D Ammonia Troponin I 0.0870 Total Protein 8.3 H Albumin 4.7 Globulin 3.6 Albumin/Globulin Ratio 1.3 Lipase 358 H Urine Color Urine Clarity Urine pH Ur Specific [employer] Urine Protein Urine Glucose (UA) Urine Ketones Urine Blood Urine Nitrate Urine Bilirubin Urine Urobilinogen Ur Leukocyte Esterase Urine RBC (Auto) Urine Microscopic WBC Ur Squamous Epith Cells Hyaline Casts Blood Type Cancelled Antibody Screen Cancelled BBK History Checked Cancelled 09/28/17 09/28/17 09/28/17 11:28 13:05 13:05 WBC RBC Hgb Hct MCV MCH MCHC RDW Plt Count MPV Neut % (Auto) Lymph % (Auto) [place] % (Auto) Eos % (Auto) Baso % (Auto) Neut # (Auto) Lymph # (Auto) [place] # (Auto) Eos # (Auto) Baso # (Auto) Neutrophils % (Manual) Band Neutrophils % Lymphocytes % (Manual) Monocytes % (Manual) Myelocytes % Nucleated RBC % Platelet Estimate Large Platelets Giant Platelets Hypochromasia (manual) Poikilocytosis (manual Anisocytosis (manual) Target Cells [place] Cells Schistocytes PT 21.7 H INR 1.9 H APTT 26.4 pCO2 pO2 HCO3 ABG pH ABG Total CO2 ABG O2 Saturation ABG O2 Content ABG Base Excess ABG Hemoglobin ABG Carboxyhemoglobin POC ABG HHb (Measured) ABG Methemoglobin ABG O2 Capacity Gio Test A-a O2 Difference Hgb O2 Saturation FiO2 Crit Value Called To Crit Value Called By Crit Value Read Back Blood Gas Notified Time Sodium 148 Potassium 5.8 H Chloride 109 H Carbon Dioxide 21 L Anion Gap 24 H BUN 61 H Creatinine 2.2 H Est GFR ( Amer) 27 Est GFR (Non-Af Amer) 22 Random Glucose 69 Calcium 8.9 Total Bilirubin Direct Bilirubin GGT AST ALT Alkaline Phosphatase Ammonia Troponin I Total Protein Albumin Globulin Albumin/Globulin Ratio Lipase Urine Color Urine Clarity Urine pH Ur Specific [employer] Urine Protein Urine Glucose (UA) Urine Ketones Urine Blood Urine Nitrate Urine Bilirubin Urine Urobilinogen Ur Leukocyte Esterase Urine RBC (Auto) Urine Microscopic WBC Ur Squamous Epith Cells Hyaline Casts Blood Type B POSITIVE Antibody Screen Negative BBK History Checked Patient has bt 09/28/17 09/28/17 09/28/17 14:55 18:01 18:01 WBC RBC Hgb Hct MCV MCH MCHC RDW Plt Count MPV Neut % (Auto) Lymph % (Auto) [place] % (Auto) Eos % (Auto) Baso % (Auto) Neut # (Auto) Lymph # (Auto) [place] # (Auto) Eos # (Auto) Baso # (Auto) Neutrophils % (Manual) Band Neutrophils % Lymphocytes % (Manual) Monocytes % (Manual) Myelocytes % Nucleated RBC % Platelet Estimate Large Platelets Giant Platelets Hypochromasia (manual) Poikilocytosis (manual Anisocytosis (manual) Target Cells [place] Cells Schistocytes PT INR APTT pCO2 pO2 HCO3 ABG pH ABG Total CO2 ABG O2 Saturation ABG O2 Content ABG Base Excess ABG Hemoglobin ABG Carboxyhemoglobin POC ABG HHb (Measured) ABG Methemoglobin ABG O2 Capacity Gio Test A-a O2 Difference Hgb O2 Saturation FiO2 Crit Value Called To Crit Value Called By Crit Value Read Back Blood Gas Notified Time Sodium 151 H Potassium 5.2 H Chloride 111 H Carbon Dioxide 21 L Anion Gap 24 H BUN 61 H Creatinine 2.2 H Est GFR ( Amer) 27 Est GFR (Non-Af Amer) 22 Random Glucose 98 Calcium 8.8 Total Bilirubin 2.7 H Direct Bilirubin 1.8 H GGT 293 H AST 733 H ALT 443 H Alkaline Phosphatase 163 H Ammonia 25 Troponin I Total Protein 7.5 Albumin 4.3 Globulin 3.2 Albumin/Globulin Ratio 1.4 Lipase Urine Color Lisa Urine Clarity Cloudy Urine pH 5.0 Ur Specific [employer] 1.019 Urine Protein 100 Urine Glucose (UA) Neg Urine Ketones Negative Urine Blood Negative Urine Nitrate Negative Urine Bilirubin Negative Urine Urobilinogen 0.2-1.0 Ur Leukocyte Esterase Small Urine RBC (Auto) 4 H Urine Microscopic WBC 10 H Ur Squamous Epith Cells 14 H Hyaline Casts 6-10 H Blood Type Antibody Screen BBK History Checked 09/28/17 09/29/17 09/29/17 20:04 04:25 04:25 WBC 7.6 5.4 RBC 3.49 L 3.33 L Hgb 9.7 L 9.3 L Hct 33.1 L 30.9 L MCV 94.7 92.8 MCH 27.7 28.0 MCHC 29.3 L 30.1 L RDW 24.2 H 24.1 H Plt Count 95 L D 87 L MPV Neut % (Auto) Lymph % (Auto) [place] % (Auto) Eos % (Auto) Baso % (Auto) Neut # (Auto) Lymph # (Auto) [place] # (Auto) Eos # (Auto) Baso # (Auto) Neutrophils % (Manual) Band Neutrophils % Lymphocytes % (Manual) Monocytes % (Manual) Myelocytes % Nucleated RBC % Platelet Estimate Large Platelets Giant Platelets Hypochromasia (manual) Poikilocytosis (manual Anisocytosis (manual) Target Cells [place] Cells Schistocytes PT INR APTT pCO2 pO2 HCO3 ABG pH ABG Total CO2 ABG O2 Saturation ABG O2 Content ABG Base Excess ABG Hemoglobin ABG Carboxyhemoglobin POC ABG HHb (Measured) ABG Methemoglobin ABG O2 Capacity Gio Test A-a O2 Difference Hgb O2 Saturation FiO2 Crit Value Called To Crit Value Called By Crit Value Read Back Blood Gas Notified Time Sodium 149 H Potassium 4.5 Chloride 110 H Carbon Dioxide 21 L Anion Gap 23 H BUN 62 H Creatinine 2.2 H Est GFR ( Amer) 27 Est GFR (Non-Af Amer) 22 Random Glucose 205 H Calcium 8.0 L Total Bilirubin 2.1 H Direct Bilirubin GGT AST 633 H ALT 443 H Alkaline Phosphatase 135 H Ammonia Troponin I Total Protein 7.0 Albumin 4.1 Globulin 2.9 Albumin/Globulin Ratio 1.4 Lipase Urine Color Urine Clarity Urine pH Ur Specific [employer] Urine Protein Urine Glucose (UA) Urine Ketones Urine Blood Urine Nitrate Urine Bilirubin Urine Urobilinogen Ur Leukocyte Esterase Urine RBC (Auto) Urine Microscopic WBC Ur Squamous Epith Cells Hyaline Casts Blood Type Antibody Screen BBK History Checked 09/29/17 09/29/17 04:25 05:49 WBC RBC Hgb Hct MCV MCH MCHC RDW Plt Count MPV Neut % (Auto) Lymph % (Auto) [place] % (Auto) Eos % (Auto) Baso % (Auto) Neut # (Auto) Lymph # (Auto) [place] # (Auto) Eos # (Auto) Baso # (Auto) Neutrophils % (Manual) Band Neutrophils % Lymphocytes % (Manual) Monocytes % (Manual) Myelocytes % Nucleated RBC % Platelet Estimate Large Platelets Giant Platelets Hypochromasia (manual) Poikilocytosis (manual Anisocytosis (manual) Target Cells [place] Cells Schistocytes PT 21.6 H INR 1.9 H APTT 28.7 pCO2 42 pO2 69 L HCO3 21.0 ABG pH 7.31 L ABG Total CO2 22.4 ABG O2 Saturation 95.4 ABG O2 Content 11.9 L ABG Base Excess -4.9 L ABG Hemoglobin 9.1 L ABG Carboxyhemoglobin 2.0 H POC ABG HHb (Measured) 4.4 ABG Methemoglobin 1.6 ABG O2 Capacity 12.5 L Gio Test Yes A-a O2 Difference 107.0 Hgb O2 Saturation 92.0 L FiO2 32.0 Crit Value Called To Dr natalya downey Crit Value Called By Claudy Crit Value Read Back Y Blood Gas Notified Time 601 Sodium Potassium Chloride Carbon Dioxide Anion Gap BUN Creatinine Est GFR ( Amer) Est GFR (Non-Af Amer) Random Glucose Calcium Total Bilirubin Direct Bilirubin GGT AST ALT Alkaline Phosphatase Ammonia Troponin I Total Protein Albumin Globulin Albumin/Globulin Ratio Lipase Urine Color Urine Clarity Urine pH Ur Specific [employer] Urine Protein Urine Glucose (UA) Urine Ketones Urine Blood Urine Nitrate Urine Bilirubin Urine Urobilinogen Ur Leukocyte Esterase Urine RBC (Auto) Urine Microscopic WBC Ur Squamous Epith Cells Hyaline Casts Blood Type Antibody Screen BBK History Checked EKG/Cardiology Studies: Cardiology / EKG Studies 09/28/17 11:26 ELECTROCARDIOGRAM Stat Comment: Mode Of Transportation: Reason For Exam: weakness Critical Care Progress Note - Nutrition Nutrition: Nutrition Category Date Time Status Heart Healthy Diet [DIET] Diets 09/28/17 Dinner Active Assessment/Plan - Assessment and Plan (Free Text) Assessment: Elevated LFTs, Hyperbilirubinemia no abdominal pain US/CT/MRCP pending, MRCP will done today, d/w GI fellow GI and Surgery consults obtained in ED Acute COPD exacerbation Much better now , continue current meds Mild Melena pt has history of multiple GIB on Pepcid and Protonix at home, continue Protonix 40mg q12 INR 1.9, mild coagulopathy 2/2 hepatic insufficiency? hold ASA and Plavix for now GI consult Mild Hyperkalemia Improved Bradycardia: Was due to BB Improved, HR now 70/m SR and BP stable SLE, dementia, depression continue home meds Plaquenil, Atarax, Remeron, Lexapro CKD-3: Stable
[2017-09-29] MEDS: Dextrose 5%/0.45% NS 1,000 ML IV SCH (08:55)
--- NOTE | 2017-09-29 09:26 | CP.PCM.PN ---
Subjective - Date & Time of Evaluation Date of Evaluation: 09/29/17 Time of Evaluation: 09:00 - Subjective Subjective: No fever abd pain resolved no further vomiting denies CP + SOB and cough Objective - Vital Signs/Intake and Output Vital Signs (last 24 hours): Temp Pulse Resp BP Pulse Ox 98.4 F 62 24 94/55 L 100 09/29/17 08:00 09/29/17 08:00 09/29/17 08:45 09/29/17 08:00 09/29/17 08:00 Intake and Output: 09/29/17 09/29/17 06:59 18:59 Intake Total 1630 100 Output Total 150 Balance 1480 100 - Medications Medications: Current Medications Albuterol/Ipratropium (Duoneb 3 Mg/0.5 Mg (3 Ml) Ud) 3 ml INH RQ4 [facility] Last Admin: 09/29/17 08:04 Dose: 3 ml Albuterol/Ipratropium (Duoneb 3 Mg/0.5 Mg (3 Ml) Ud) 3 ml INH RQ2 PRN PRN Reason: Shortness of Breath Artificial Tears (Artificial Tears) 2 drop OU Q6 PRN PRN Reason: Dry eyes Atorvastatin Calcium (Lipitor) 10 mg PO HS [facility] Last Admin: 09/28/17 21:51 Dose: 10 mg Folic Acid (Folic Acid) 1 mg PO DAILY [facility] Hydroxyzine HCl (Atarax) 10 mg PO TID PRN PRN Reason: Itching / Pruritus Piperacillin Sod/Tazobactam (Sod 2.25 gm/ Sodium Chloride) 100 mls @ 100 mls/ hr IVPB Q8 [facility] PRN Reason: Protocol Last Admin: 09/29/17 08:58 Dose: 100 mls/hr Dextrose/Sodium Chloride (Dextrose 5%/0.45% Ns 1000 Ml) 1,000 mls @ 125 mls/hr IV .Q8H [facility] Stop: 09/29/17 18:38 Last Admin: 09/29/17 08:55 Dose: 125 mls/hr Methylprednisolone (Solu-Medrol) 40 mg IVP Q6 [facility] Last Admin: 09/29/17 09:00 Dose: 40 mg Pantoprazole Sodium (Protonix Ec Tab) 40 mg PO Q12 [facility] Last Admin: 09/28/17 21:50 Dose: 40 mg - Labs Labs: 09/29/17 04:25 09/29/17 04:25 PT 21.6 Seconds (9.8-13.1) H 09/29/17 04:25 INR 1.9 (0.9-1.2) H 09/29/17 04:25 APTT 28.7 Seconds (25.6-37.1) 09/29/17 04:25 - Constitutional Appears: Toxic, Chronically Ill - Head Exam Head Exam: NORMAL INSPECTION, NORMOCEPHALIC - Eye Exam Eye Exam: EOMI Pupil Exam: NORMAL ACCOMODATION - ENT Exam ENT Exam: Mucous Membranes Dry, Normal External Ear Exam - Neck Exam Neck Exam: Full ROM. absent: Meningismus - Respiratory Exam Respiratory Exam: Accessory Muscle Use, Decreased Breath Sounds, Rales, Rhonchi - Cardiovascular Exam Cardiovascular Exam: REGULAR RHYTHM, +S1, +S2 - GI/Abdominal Exam GI & Abdominal Exam: Soft, Normal Bowel Sounds. absent: Tenderness - Extremities Exam Extremities Exam: Normal Capillary Refill. absent: Calf Tenderness - Back Exam Back Exam: absent: CVA tenderness (L), CVA tenderness (R) - Neurological Exam Neurological Exam: Alert, Awake, Oriented x3 - Psychiatric Exam Psychiatric exam: Flat Affect - Skin Skin Exam: Dry, Pallor, Warm Assessment and Plan - Assessment and Plan (Free Text) Assessment: 62F well known to our service with past medical history of COPD, OLIVIA, severe PAH, SLE, RA, s/p splenectomy with chronic thrombocytopenia, hx CVA, CAD with PCI, hx DVT with IVC filter recently discharged 3 days ago after being admitted for abdominal pain. Patient states she still does not have much abdominal pain, however she has had worsening, persistent, moderate nausea associated with nbnb emesis as well as some scant dark stools. She is also very dyspneic and has decreased BS. Patient was found to be in acute on chronic renal failure, and has elevated LFTs as well as TBILI. Patient also bradycardic in 45-50 BPM range, with lightheadedness and generalized malaise. Pt was admitted to ICU for close monitoring . Abd Sono: Contracted gallbladder. No cholelithiasis. CT of the abd :1. Lack of contrast agents limits evaluation. No overt pattern of cholecystitis. Gallbladder appears partially contracted compared to the prior exam when it was more significantly more distended. 2. Mild increase in pelvic ascites. Trace perihepatic ascites extending into right pericolic gutter of uncertain origin. This obscures evaluation of the appendix. 3. Prior splenectomy or congenital absence again evident. 1. Abdominal Pain with Elevated LFTs ? etiology r/o Cholecystitis - MRCP pending - Hepatitis panel - GI consult, Surgery consult - cont IV Zosyn for now 2. Bradycardia cont to monitor rhythm - d/c Toprol -EKG bradycardia, T wave flattening and inversions low voltage, prolonged QTc -45-50 BPM on admission 3.Acute COPD exacerbation continue IV Solumedrol and duonebs cont Bipap q hs and 3-4 liters NC q am 4. r/o Melena pt has history of multiple GIB- had dark stool at home continue Protonix 40mg q12 Occult blood INR 1.9, mild coagulopathy 2/2 hepatic insufficiency? hold ASA and Plavix for now GI consult 5. Hyperkalemia no peaked T waves on EKG repeat BMP in AM received Kayexalate 6. CKD Stage III monitor BMP Crea stable 2.2 7. SLE/RA Hold on Plaquenil due to abn LFT - on IV 8. Coagulopathy ? sec to the Liver Dis monitor no signs of bleeding DVT proph - no anticoag due to coagulopathy and thrombocytopenia
[2017-09-29] MEDS: Pantoprazole 40 mg EC Tab PO SCH ×2 (13:09→21:36)
--- NOTE | 2017-09-29 15:48 | CP.PCM.CON ---
<Cheng Muhammad - Last Filed: 09/29/17 15:50> History of Present Illness - History of Present Illness History of Present Illness: Initial PGY5 GI Consult Note Jess Sykes is a 62 F w Hx of CHF, COPD, acaculus cholecystitis, multiple CVA, anxiety who presented to the ER with vomiting. PT was recently discharged from [facility] for acalculus cholecystitis. At that time, a CT Abd revealed a thick GB wall without stones and HIDA was neg at that time. When she arrived in the ED, she complained of lethargy and chills. She also noted SOB. Her initial blood work revealed elevated liver enzymes. Gi was consulted for this reason. US again revealed thicken GB wall , no stone. decompressed GB. Endoscopy was cancelled last time because of her multiple cormorbidity and high risk for anesthesia. Denies fever, abd pain. 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, HTN, Sleep apnea, asthma/COPD, dyslipidemia rheumatoid arthritis, SLE, osteoporosis , thrombocytopenia Surgeries: Carpal tunnel surgery, C- sections x 2, bunion removal, splenectomy Family history: Mother had HTN, DM and CABG, Father had CVA HTN and DM Social history: Lives in [place], does not smoke, does not drink, does not use any alcohol, used to work in leather factory ROS: 12 point ROS conducted, neg other than above Past Patient History - Infectious Disease Hx of Infectious Diseases: None - Tetanus Immunizations Tetanus Immunization: Unknown - Past Medical History & Family History Past Medical History?: Yes - Past Social History Smoking Status: Former Smoker - CARDIAC Hx Cardiac Disorders: Yes Hx Cardia Arrhythmia: Yes Hx Congestive Heart Failure: Yes Hx Hypertension: Yes Hx Peripheral Vascular Disease: Yes Other/Comment: stents - PULMONARY Hx Respiratory Disorders: Yes Hx Asthma: Yes Hx Chronic Obstructive Pulmonary Disease (COPD): Yes Hx Lung Cancer: No Hx Pneumonia: No Hx Sleep Apnea: Yes - NEUROLOGICAL Hx Neurological Disorder: Yes HX Cerebrovascular Accident: Yes - HEENT Hx HEENT Problems: Yes Hx Cataracts: Yes - RENAL Hx Chronic Kidney Disease: No - ENDOCRINE/METABOLIC Hx Endocrine Disorders: No Hx Diabetes Mellitus Type 1: No Hx Diabetes Mellitus Type 2: No - HEMATOLOGICAL/ONCOLOGICAL Hx Blood Disorders: Yes Hx AIDS: No Hx Anemia: Yes Hx Human Immunodeficiency Virus (HIV): No Other/Comment: DVT - INTEGUMENTARY Hx Dermatological Problems: No - MUSCULOSKELETAL/RHEUMATOLOGICAL Hx Musculoskeletal Disorders: Yes Hx Falls: No Hx Osteoporosis: Yes Hx Rheumatoid Arthritis: Yes Hx Unsteady Gait: Yes - GASTROINTESTINAL Hx Gastrointestinal Disorders: Yes Hx Diverticulitis: Yes Hx Gall Bladder Disease: Yes Hx Gastritis: Yes Hx Nausea: Yes Hx Vomiting: Yes - GENITOURINARY/GYNECOLOGICAL Hx Genitourinary Disorders: Yes Hx Incontinence: No - PSYCHIATRIC Hx Psychophysiologic Disorder: Yes Hx Anxiety: Yes Hx Bipolar Disorder: No Hx Depression: Yes Hx Emotional Abuse: No Hx Hallucinations: No Hx Panic Symptoms: No Hx Post Traumatic Stress Disorder: No Hx Psychosis: No Hx Physical Abuse: No Hx Schizophrenia: No Hx Sexual Abuse: No Hx Substance Use: No - SURGICAL HISTORY Hx Surgeries: Yes Hx Appendectomy: Yes Hx Cholecystectomy: No Hx [place]: [place] [facility] [place] [facility] [place] ANESTHESIA Hx Anesthesia: Yes Hx Anesthesia Reactions: No Hx Malignant Hyperthermia: No Has any member of the family had a problem w/ anesthesia?: No Meds Allergies/Adverse Reactions: Allergies Allergy/AdvReac Type Severity Reaction Status Date / Time No Known Allergies Allergy Verified 09/12/17 11:35 - Medications Medications: Current Medications Albuterol/Ipratropium (Duoneb 3 Mg/0.5 Mg (3 Ml) Ud) 3 ml INH RQ4 [facility] Last Admin: 09/29/17 12:35 Dose: 3 ml Albuterol/Ipratropium (Duoneb 3 Mg/0.5 Mg (3 Ml) Ud) 3 ml INH RQ2 PRN PRN Reason: Shortness of Breath Artificial Tears (Artificial Tears) 2 drop OU Q6 PRN PRN Reason: Dry eyes Atorvastatin Calcium (Lipitor) 10 mg PO HS [facility] Last Admin: 09/28/17 21:51 Dose: 10 mg Folic Acid (Folic Acid) 1 mg PO DAILY [facility] Last Admin: 09/29/17 13:09 Dose: 1 mg Hydroxyzine HCl (Atarax) 10 mg PO TID PRN PRN Reason: Itching / Pruritus Piperacillin Sod/Tazobactam (Sod 2.25 gm/ Sodium Chloride) 100 mls @ 100 mls/ hr IVPB Q8 [facility] PRN Reason: Protocol Last Admin: 09/29/17 08:58 Dose: 100 mls/hr Dextrose/Sodium Chloride (Dextrose 5%/0.45% Ns 1000 Ml) 1,000 mls @ 125 mls/hr IV .Q8H [facility] Stop: 09/29/17 18:38 Last Admin: 09/29/17 08:55 Dose: 125 mls/hr Methylprednisolone (Solu-Medrol) 40 mg IVP Q6 [facility] Last Admin: 09/29/17 09:00 Dose: 40 mg Pantoprazole Sodium (Protonix Ec Tab) 40 mg PO Q12 [facility] Last Admin: 09/29/17 13:09 Dose: 40 mg Physical Exam - Constitutional Appears: No Acute Distress, Chronically Ill - Head Exam Head Exam: ATRAUMATIC, NORMOCEPHALIC - Eye Exam Eye Exam: Normal appearance. absent: Scleral icterus - ENT Exam ENT Exam: Mucous Membranes Moist - Neck Exam Neck exam: Positive for: Normal Inspection - Respiratory Exam Respiratory Exam: Rhonchi, Wheezes, NORMAL BREATHING PATTERN. absent: Rales, Respiratory Distress - Cardiovascular Exam Cardiovascular Exam: REGULAR RHYTHM, +S1, +S2 - GI/Abdominal Exam GI & Abdominal Exam: Normal Bowel Sounds, Soft. absent: Distended, Guarding, Organomegaly, Rebound, Rigid, Tenderness - Extremities Exam Extremities exam: Positive for: pedal edema. Negative for: joint swelling - Neurological Exam Neurological exam: Altered, Oriented x3 - Psychiatric Exam Psychiatric exam: Normal Affect, Normal Mood - Skin Skin Exam: Dry, Intact, Normal Color, Warm Results - Vital Signs Recent Vital Signs: Last Vital Signs Temp 98.4 F 09/29/17 12:00 Pulse 67 09/29/17 12:00 Resp 20 09/29/17 12:00 BP 130/77 09/29/17 12:00 Pulse Ox 97 09/29/17 12:00 - Labs Result Diagrams: 09/29/17 04:25 09/29/17 04:25 Labs: Laboratory Results - last 24 hr 09/28/17 09/28/17 09/28/17 18:01 18:01 20:04 WBC 7.6 RBC 3.49 L Hgb 9.7 L Hct 33.1 L MCV 94.7 MCH 27.7 MCHC 29.3 L RDW 24.2 H Plt Count 95 L D PT INR APTT pCO2 pO2 HCO3 ABG pH ABG Total CO2 ABG O2 Saturation ABG O2 Content ABG Base Excess ABG Hemoglobin ABG Carboxyhemoglobin POC ABG HHb (Measured) ABG Methemoglobin ABG O2 Capacity Gio Test A-a O2 Difference Hgb O2 Saturation FiO2 Crit Value Called To Crit Value Called By Crit Value Read Back Blood Gas Notified Time Sodium 151 H Potassium 5.2 H Chloride 111 H Carbon Dioxide 21 L Anion Gap 24 H BUN 61 H Creatinine 2.2 H Est GFR ( Amer) 27 Est GFR (Non-Af Amer) 22 Random Glucose 98 Calcium 8.8 Total Bilirubin 2.7 H Direct Bilirubin 1.8 H GGT 293 H AST 733 H ALT 443 H Alkaline Phosphatase 163 H Ammonia 25 Total Protein 7.5 Albumin 4.3 Globulin 3.2 Albumin/Globulin Ratio 1.4 09/29/17 09/29/17 09/29/17 04:25 04:25 04:25 WBC 5.4 RBC 3.33 L Hgb 9.3 L Hct 30.9 L MCV 92.8 MCH 28.0 MCHC 30.1 L RDW 24.1 H Plt Count 87 L PT 21.6 H INR 1.9 H APTT 28.7 pCO2 pO2 HCO3 ABG pH ABG Total CO2 ABG O2 Saturation ABG O2 Content ABG Base Excess ABG Hemoglobin ABG Carboxyhemoglobin POC ABG HHb (Measured) ABG Methemoglobin ABG O2 Capacity Gio Test A-a O2 Difference Hgb O2 Saturation FiO2 Crit Value Called To Crit Value Called By Crit Value Read Back Blood Gas Notified Time Sodium 149 H Potassium 4.5 Chloride 110 H Carbon Dioxide 21 L Anion Gap 23 H BUN 62 H Creatinine 2.2 H Est GFR ( Amer) 27 Est GFR (Non-Af Amer) 22 Random Glucose 205 H Calcium 8.0 L Total Bilirubin 2.1 H Direct Bilirubin GGT AST 633 H ALT 443 H Alkaline Phosphatase 135 H Ammonia Total Protein 7.0 Albumin 4.1 Globulin 2.9 Albumin/Globulin Ratio 1.4 09/29/17 05:49 WBC RBC Hgb Hct MCV MCH MCHC RDW Plt Count PT INR APTT pCO2 42 pO2 69 L HCO3 21.0 ABG pH 7.31 L ABG Total CO2 22.4 ABG O2 Saturation 95.4 ABG O2 Content 11.9 L ABG Base Excess -4.9 L ABG Hemoglobin 9.1 L ABG Carboxyhemoglobin 2.0 H POC ABG HHb (Measured) 4.4 ABG Methemoglobin 1.6 ABG O2 Capacity 12.5 L Gio Test Yes A-a O2 Difference 107.0 Hgb O2 Saturation 92.0 L FiO2 32.0 Crit Value Called To Dr natalya downey Crit Value Called By Claudy Crit Value Read Back Y Blood Gas Notified Time 601 Sodium Potassium Chloride Carbon Dioxide Anion Gap BUN Creatinine Est GFR ( Amer) Est GFR (Non-Af Amer) Random Glucose Calcium Total Bilirubin Direct Bilirubin GGT AST ALT Alkaline Phosphatase Ammonia Total Protein Albumin Globulin Albumin/Globulin Ratio Assessment & Plan - Assessment and Plan (Free Text) Assessment: Jess Sykes is a 62 F w Hx of CHF COPD acaculus cholecystitis, multiple CVA, anxiety who presented to the ED due to emesis, lethary and abd pain Acalculos cholecystitis Elevated Liver enzymes, likely 2/2 above, r/o CBD stone. infectous etiology, autoimmune hx of COPD Acute Liver Failure Plan: -diet as tolerated -blood cultures -MRCP final report pending -autoimmune and viral serologies pending -surgery on board -may need PCT if pt worsens and is not a surgical cannidate -continue abx -rest of care as primary team D/W / Silvestre <Geena Rivers - Last Filed: 09/29/17 16:51> Meds - Medications Medications: Current Medications Albuterol/Ipratropium (Duoneb 3 Mg/0.5 Mg (3 Ml) Ud) 3 ml INH RQ4 [facility] Last Admin: 09/29/17 15:58 Dose: 3 ml Albuterol/Ipratropium (Duoneb 3 Mg/0.5 Mg (3 Ml) Ud) 3 ml INH RQ2 PRN PRN Reason: Shortness of Breath Artificial Tears (Artificial Tears) 2 drop OU Q6 PRN PRN Reason: Dry eyes Atorvastatin Calcium (Lipitor) 10 mg PO HS [facility] Last Admin: 09/28/17 21:51 Dose: 10 mg Folic Acid (Folic Acid) 1 mg PO DAILY [facility] Last Admin: 09/29/17 13:09 Dose: 1 mg Hydroxyzine HCl (Atarax) 10 mg PO TID PRN PRN Reason: Itching / Pruritus Piperacillin Sod/Tazobactam (Sod 2.25 gm/ Sodium Chloride) 100 mls @ 100 mls/ hr IVPB Q8 [facility] PRN Reason: Protocol Last Admin: 09/29/17 16:38 Dose: 100 mls/hr Dextrose/Sodium Chloride (Dextrose 5%/0.45% Ns 1000 Ml) 1,000 mls @ 125 mls/hr IV .Q8H [facility] Stop: 09/29/17 18:38 Last Admin: 09/29/17 08:55 Dose: 125 mls/hr Methylprednisolone (Solu-Medrol) 40 mg IVP Q6 [facility] Last Admin: 09/29/17 16:37 Dose: 40 mg Pantoprazole Sodium (Protonix Ec Tab) 40 mg PO Q12 [facility] Last Admin: 09/29/17 13:09 Dose: 40 mg Results - Vital Signs Recent Vital Signs: Last Vital Signs Temp 97.1 F L 09/29/17 16:00 Pulse 66 09/29/17 16:00 Resp 28 H 09/29/17 16:00 BP 112/68 09/29/17 16:00 Pulse Ox 96 09/29/17 16:00 - Labs Result Diagrams: 09/29/17 04:25 09/29/17 04:25 Labs: Laboratory Results - last 24 hr 09/28/17 09/28/17 09/28/17 18:01 18:01 20:04 WBC 7.6 RBC 3.49 L Hgb 9.7 L Hct 33.1 L MCV 94.7 MCH 27.7 MCHC 29.3 L RDW 24.2 H Plt Count 95 L D PT INR APTT pCO2 pO2 HCO3 ABG pH ABG Total CO2 ABG O2 Saturation ABG O2 Content ABG Base Excess ABG Hemoglobin ABG Carboxyhemoglobin POC ABG HHb (Measured) ABG Methemoglobin ABG O2 Capacity Gio Test A-a O2 Difference Hgb O2 Saturation FiO2 Crit Value Called To Crit Value Called By Crit Value Read Back Blood Gas Notified Time Sodium 151 H Potassium 5.2 H Chloride 111 H Carbon Dioxide 21 L Anion Gap 24 H BUN 61 H Creatinine 2.2 H Est GFR ( Amer) 27 Est GFR (Non-Af Amer) 22 Random Glucose 98 Calcium 8.8 Total Bilirubin 2.7 H Direct Bilirubin 1.8 H GGT 293 H AST 733 H ALT 443 H Alkaline Phosphatase 163 H Ammonia 25 Total Protein 7.5 Albumin 4.3 Globulin 3.2 Albumin/Globulin Ratio 1.4 IgG 09/29/17 09/29/17 09/29/17 04:25 04:25 04:25 WBC 5.4 RBC 3.33 L Hgb 9.3 L Hct 30.9 L MCV 92.8 MCH 28.0 MCHC 30.1 L RDW 24.1 H Plt Count 87 L PT 21.6 H INR 1.9 H APTT 28.7 pCO2 pO2 HCO3 ABG pH ABG Total CO2 ABG O2 Saturation ABG O2 Content ABG Base Excess ABG Hemoglobin ABG Carboxyhemoglobin POC ABG HHb (Measured) ABG Methemoglobin ABG O2 Capacity Gio Test A-a O2 Difference Hgb O2 Saturation FiO2 Crit Value Called To Crit Value Called By Crit Value Read Back Blood Gas Notified Time Sodium 149 H Potassium 4.5 Chloride 110 H Carbon Dioxide 21 L Anion Gap 23 H BUN 62 H Creatinine 2.2 H Est GFR ( Amer) 27 Est GFR (Non-Af Amer) 22 Random Glucose 205 H Calcium 8.0 L Total Bilirubin 2.1 H Direct Bilirubin GGT AST 633 H ALT 443 H Alkaline Phosphatase 135 H Ammonia Total Protein 7.0 Albumin 4.1 Globulin 2.9 Albumin/Globulin Ratio 1.4 IgG 09/29/17 09/29/17 05:49 10:34 WBC RBC Hgb Hct MCV MCH MCHC RDW Plt Count PT INR APTT pCO2 42 pO2 69 L HCO3 21.0 ABG pH 7.31 L ABG Total CO2 22.4 ABG O2 Saturation 95.4 ABG O2 Content 11.9 L ABG Base Excess -4.9 L ABG Hemoglobin 9.1 L ABG Carboxyhemoglobin 2.0 H POC ABG HHb (Measured) 4.4 ABG Methemoglobin 1.6 ABG O2 Capacity 12.5 L Gio Test Yes A-a O2 Difference 107.0 Hgb O2 Saturation 92.0 L FiO2 32.0 Crit Value Called To Dr natalya downey Crit Value Called By Crit Value Read Back Y Blood Gas Notified Time 601 Sodium Potassium Chloride Carbon Dioxide Anion Gap BUN Creatinine Est GFR ( Amer) Est GFR (Non-Af Amer) Random Glucose Calcium Total Bilirubin Direct Bilirubin GGT AST ALT Alkaline Phosphatase Ammonia Total Protein Albumin Globulin Albumin/Globulin Ratio IgG 1340.2 Attending/Attestation - Attestation I have personally seen and examined this patient.: Yes I have fully participated in the care of the patient.: Yes I have reviewed all pertinent clinical information: Yes Notes (Text): 09/29/17 16:40 This is a 62 yr old F with history of CHF, COPD, pulmonary HTN, IVC filter, RA, SLE, CKD stage 3, acaculus cholecystitis, multiple CVA, anxiety who presented to the ED due to emesis, lethargy, bradycardia and abdominal pain after being discharged 3 days ago. MRCP pending. Elevated LFt with autoimmune and viral serologies pending. Elevated INR. Likely ischemic hepatitis due to right sided heart failure. Continue antibiotics.
[2017-09-29] MEDS: Artificial Tears Opht Soln OU PRN (21:35)
[2017-09-30] MEDS: MethylPREDNISolone 40 mg Vial IVP SCH ×4 (04:00→21:42)
[2017-09-30] MEDS: Albuterol-Ipratrop 3 mg / 0.5 (3 ml) UD INH SCH ×6 (04:45→23:42)
[2017-09-30 05:46] LABS: HEMOGLOBIN 8.7 g/dL (12.0-16.0); MEAN CORPUSCULAR HEMOGLOBIN 27.8 pg (27.0-31.0); MEAN CORPUSCULAR HGB CONC 29.8 g/dL (33.0-37.0); RBC 3.12 Mil/uL (3.80-5.20); RED CELL DISTRIBUTION WIDTH 23.9 % (11.5-14.5); WHITE BLOOD COUNT 8.7 K/uL (4.8-10.8)
[2017-09-30 06:16] LABS: ALB/GLOB RATIO 1.2 (1.0-2.1); ALBUMIN 3.7 g/dL (3.5-5.0); CALCIUM 7.9 mg/dL (8.4-10.2)
[2017-09-30 06:21] LABS: INR 1.7 (0.9-1.2); PROTHROMBIN TIME 18.5 Seconds (9.8-13.1)
[2017-09-30 07:40] LABS: BASO % 1.9 % (0.0-2.0); EOS % 0.1 % (0.0-4.0); LYMPH % 14.2 % (20.0-40.0); NEUT % 76.8 % (50.0-75.0)
[2017-09-30 07:41] LABS: BASO # 0.2 K/uL (0.0-0.2); LYMPH # 1.3 K/uL (1.0-4.3); MONO # 0.6 K/uL (0.0-0.8); NEUT # 6.8 K/uL (1.8-7.0); NRBC % 12.7 % (0.0-0.0)
[2017-09-30 08:09] LABS: HEPATITIS B SURFACE AG Negative (NEGATIVE)
[2017-09-30 08:14] LABS: HEPATITIS A IGM NEGATIVE (NEGATIVE)
[2017-09-30 08:26] LABS: HEPATITIS C ANTIBODY NEGATIVE (NEGATIVE)
[2017-09-30 08:27] LABS: HEPATITIS B CORE AB NEGATIVE (NEGATIVE)
[2017-09-30] MEDS: Pantoprazole 40 mg EC Tab PO SCH ×2 (08:50→21:41)
--- NOTE | 2017-09-30 08:57 | CP.PCM.PN ---
Subjective - Date & Time of Evaluation Date of Evaluation: 09/30/17 Time of Evaluation: 08:55 - Subjective Subjective: General surgery progress note for Dr. Yolande Zaldivar, PGY-2 Pt S & E at bedside at 0740 and again with attending at 0820 Pt on Bipap overnight, reports abdominal pain much improved. Denies N & V, F & C, SOB, CP. Objective - Vital Signs/Intake and Output Vital Signs (last 24 hours): Temp Pulse Resp BP Pulse Ox 97.6 F 63 29 H 130/46 L 91 L 09/30/17 08:00 09/30/17 08:00 09/30/17 08:00 09/30/17 08:00 09/30/17 08:00 Intake and Output: 09/30/17 09/30/17 06:59 18:59 Intake Total 240 100 Output Total 925 Balance -685 100 - Medications Medications: Current Medications Albuterol/Ipratropium (Duoneb 3 Mg/0.5 Mg (3 Ml) Ud) 3 ml INH RQ4 [facility] Last Admin: 09/30/17 07:20 Dose: 3 ml Albuterol/Ipratropium (Duoneb 3 Mg/0.5 Mg (3 Ml) Ud) 3 ml INH RQ2 PRN PRN Reason: Shortness of Breath Artificial Tears (Artificial Tears) 2 drop OU Q6 PRN PRN Reason: Dry eyes Last Admin: 09/29/17 21:35 Dose: 2 drop Atorvastatin Calcium (Lipitor) 10 mg PO HS [facility] Last Admin: 09/29/17 21:36 Dose: 10 mg Folic Acid (Folic Acid) 1 mg PO DAILY [facility] Last Admin: 09/30/17 08:50 Dose: 1 mg Hydroxyzine HCl (Atarax) 10 mg PO TID PRN PRN Reason: Itching / Pruritus Last Admin: 09/29/17 21:35 Dose: 10 mg Piperacillin Sod/Tazobactam (Sod 2.25 gm/ Sodium Chloride) 100 mls @ 100 mls/ hr IVPB Q8 [facility] PRN Reason: Protocol Last Admin: 09/30/17 08:51 Dose: 100 mls/hr Methylprednisolone (Solu-Medrol) 40 mg IVP Q6 [facility] Last Admin: 09/30/17 04:00 Dose: 40 mg Pantoprazole Sodium (Protonix Ec Tab) 40 mg PO Q12 [facility] Last Admin: 09/30/17 08:50 Dose: 40 mg - Labs Labs: 09/30/17 04:25 09/30/17 04:25 PT 18.5 Seconds (9.8-13.1) H 09/30/17 04:25 INR 1.7 (0.9-1.2) H 09/30/17 04:25 APTT 28.7 Seconds (25.6-37.1) 09/29/17 04:25 - Constitutional Appears: Non-toxic, No Acute Distress - Head Exam Head Exam: ATRAUMATIC, NORMAL INSPECTION, NORMOCEPHALIC - Eye Exam Eye Exam: EOMI, Normal appearance - ENT Exam ENT Exam: Mucous Membranes Moist, Normal Exam - Neck Exam Neck Exam: Full ROM, Normal Inspection - Respiratory Exam Respiratory Exam: NORMAL BREATHING PATTERN - Cardiovascular Exam Cardiovascular Exam: REGULAR RHYTHM, +S1, +S2 - GI/Abdominal Exam GI & Abdominal Exam: Soft. absent: Distended (obese), Firm, Guarding, Tenderness Additional comments: ecchymoses over lower abdomen - Extremities Exam Extremities Exam: Normal Inspection - Neurological Exam Neurological Exam: Alert, Awake, CN II-XII Intact, Oriented x3 - Psychiatric Exam Psychiatric exam: Normal Affect, Normal Mood - Skin Skin Exam: Dry, Intact, Normal Color, Warm Additional comments: ecchymoses over lower abdomen Assessment and Plan - Assessment and Plan (Free Text) Assessment: 62F w/PMH sig for multiple medical co-morbidities with emesis in setting of hyperbilirubinemia- improving, T bili now 1.6 from 2.1 Plan: FU MRCP report Monitor labs Further recs pending imaging results No plans for surgical intervention at this time Will follow MONICA attending Kayley, PGY-2
--- NOTE | 2017-09-30 08:57 | CP.PCM.PN ---
<Cheng Muhammad - Last Filed: 09/30/17 10:58> Subjective - Date & Time of Evaluation Date of Evaluation: 09/30/17 Time of Evaluation: 07:30 - Subjective Subjective: PGY5 GI Follow-up Pt seen and examined bedside tolerating diet Denies any abd pain No current complaints ROS: Objective - Vital Signs/Intake and Output Vital Signs (last 24 hours): Temp Pulse Resp BP Pulse Ox 97.6 F 63 29 H 130/46 L 91 L 09/30/17 08:00 09/30/17 08:00 09/30/17 08:00 09/30/17 08:00 09/30/17 08:00 Intake and Output: 09/30/17 09/30/17 06:59 18:59 Intake Total 240 100 Output Total 925 Balance -685 100 - Medications Medications: Current Medications Albuterol/Ipratropium (Duoneb 3 Mg/0.5 Mg (3 Ml) Ud) 3 ml INH RQ4 [place] Last Admin: 09/30/17 07:20 Dose: 3 ml Albuterol/Ipratropium (Duoneb 3 Mg/0.5 Mg (3 Ml) Ud) 3 ml INH RQ2 PRN PRN Reason: Shortness of Breath Artificial Tears (Artificial Tears) 2 drop OU Q6 PRN PRN Reason: Dry eyes Last Admin: 09/29/17 21:35 Dose: 2 drop Atorvastatin Calcium (Lipitor) 10 mg PO HS [place] Last Admin: 09/29/17 21:36 Dose: 10 mg Folic Acid (Folic Acid) 1 mg PO DAILY [place] Last Admin: 09/30/17 08:50 Dose: 1 mg Hydroxyzine HCl (Atarax) 10 mg PO TID PRN PRN Reason: Itching / Pruritus Last Admin: 09/29/17 21:35 Dose: 10 mg Piperacillin Sod/Tazobactam (Sod 2.25 gm/ Sodium Chloride) 100 mls @ 100 mls/ hr IVPB Q8 [place] PRN Reason: Protocol Last Admin: 09/30/17 08:51 Dose: 100 mls/hr Methylprednisolone (Solu-Medrol) 40 mg IVP Q6 [place] Last Admin: 09/30/17 04:00 Dose: 40 mg Pantoprazole Sodium (Protonix Ec Tab) 40 mg PO Q12 [place] Last Admin: 09/30/17 08:50 Dose: 40 mg - Labs Labs: 09/30/17 04:25 09/30/17 04:25 PT 18.5 Seconds (9.8-13.1) H 09/30/17 04:25 INR 1.7 (0.9-1.2) H 09/30/17 04:25 APTT 28.7 Seconds (25.6-37.1) 09/29/17 04:25 - Constitutional Appears: Well, No Acute Distress - Eye Exam Eye Exam: Normal appearance - Neck Exam Neck Exam: Normal Inspection - Respiratory Exam Respiratory Exam: Clear to Ausculation Bilateral, NORMAL BREATHING PATTERN. absent: Rales, Rhonchi, Wheezes, Respiratory Distress - Cardiovascular Exam Cardiovascular Exam: REGULAR RHYTHM, +S1, +S2 - GI/Abdominal Exam GI & Abdominal Exam: Soft, Normal Bowel Sounds. absent: Distended, Firm, Guarding, Rigid, Tenderness, Organomegaly, Rebound - Extremities Exam Extremities Exam: absent: Joint Swelling, Pedal Edema - Neurological Exam Neurological Exam: Alert, Awake, Oriented x3 - Psychiatric Exam Psychiatric exam: Normal Affect, Normal Mood - Skin Skin Exam: Dry, Intact, Normal Color, Warm Assessment and Plan - Assessment and Plan (Free Text) Assessment: Jess Sykes is a 62 F w Hx of CHF COPD acaculus cholecystitis, multiple CVA, anxiety who presented to the ED due to emesis, lethary and abd pain Elevated Liver enzymes, 2/2 hepatic ischemia? (improving) hx of COPD Acute Liver Failure Plan: -diet as tolerated -blood cultures -MRCP revealed normal CBD w/o stones and no GB stones -autoimmune and viral serologies pending -rapid improvement in LFTs, since cardiac stabilization -continue to keep MAP>65 -will sign off -no acute GI intervention will D/W / Silvestre <Geena Rivers - Last Filed: 09/30/17 13:45> Objective - Vital Signs/Intake and Output Vital Signs (last 24 hours): Temp Pulse Resp BP Pulse Ox 98.5 F 65 24 131/72 100 09/30/17 12:00 09/30/17 12:00 09/30/17 12:00 09/30/17 12:00 09/30/17 12:00 Intake and Output: 07/08/18 07/08/18 06:59 18:59 Intake Total 240 220 Output Total 925 Balance -685 220 - Medications Medications: Current Medications Albuterol/Ipratropium (Duoneb 3 Mg/0.5 Mg (3 Ml) Ud) 3 ml INH RQ4 [place] Last Admin: 09/30/17 11:02 Dose: 3 ml Albuterol/Ipratropium (Duoneb 3 Mg/0.5 Mg (3 Ml) Ud) 3 ml INH RQ2 PRN PRN Reason: Shortness of Breath Artificial Tears (Artificial Tears) 2 drop OU Q6 PRN PRN Reason: Dry eyes Last Admin: 09/29/17 21:35 Dose: 2 drop Atorvastatin Calcium (Lipitor) 10 mg PO HS [place] Last Admin: 09/29/17 21:36 Dose: 10 mg Folic Acid (Folic Acid) 1 mg PO DAILY [place] Last Admin: 09/30/17 08:50 Dose: 1 mg Hydroxyzine HCl (Atarax) 10 mg PO TID PRN PRN Reason: Itching / Pruritus Last Admin: 09/29/17 21:35 Dose: 10 mg Piperacillin Sod/Tazobactam (Sod 2.25 gm/ Sodium Chloride) 100 mls @ 100 mls/ hr IVPB Q8 [place] PRN Reason: Protocol Last Admin: 09/30/17 08:51 Dose: 100 mls/hr Methylprednisolone (Solu-Medrol) 40 mg IVP Q6 [place] Last Admin: 09/30/17 09:04 Dose: 40 mg Pantoprazole Sodium (Protonix Ec Tab) 40 mg PO Q12 [place] Last Admin: 09/30/17 08:50 Dose: 40 mg - Labs Labs: 09/30/17 04:25 09/30/17 04:25 PT 18.5 Seconds (9.8-13.1) H 09/30/17 04:25 INR 1.7 (0.9-1.2) H 09/30/17 04:25 APTT 28.7 Seconds (25.6-37.1) 09/29/17 04:25 Attending/Attestation - Attestation I have personally seen and examined this patient.: Yes I have fully participated in the care of the patient.: Yes I have reviewed all pertinent clinical information, including history, physical exam and plan: Yes Notes (Text): 09/30/17 13:44 This is a 62 yr old F with history of CHF, COPD, pulmonary HTN, IVC filter, RA, SLE, CKD stage 3, with normal MRCP with no gallstones in CBD, multiple CVA, anxiety who presented to the ED due to emesis, lethargy, bradycardia and abdominal pain after being discharged 3 days ago. LFT downtrending with viral serologies negative. Likely ischemic hepatitis due to right sided heart failure. Continue antibiotics. Rest of care as per MICU. Thank you for letting us participate in the care of your patient
--- NOTE | 2017-09-30 11:03 | CP.PCM.PN ---
Subjective - Date & Time of Evaluation Date of Evaluation: 09/30/17 Time of Evaluation: 11:00 - Subjective Subjective: Feels better no fever abd pain better no N/V tolerated PO diet LFTS still elevated however slowly trending down no CP no SOB Discussed test results and treatment plan with pt and her sister Mary Objective - Vital Signs/Intake and Output Vital Signs (last 24 hours): Temp Pulse Resp BP Pulse Ox 97.6 F 69 16 122/87 92 L 09/30/17 08:00 09/30/17 10:00 09/30/17 10:00 09/30/17 10:00 09/30/17 10:00 Intake and Output: 09/30/17 09/30/17 06:59 18:59 Intake Total 240 220 Output Total 925 Balance -685 220 - Medications Medications: Current Medications Albuterol/Ipratropium (Duoneb 3 Mg/0.5 Mg (3 Ml) Ud) 3 ml INH RQ4 [place] Last Admin: 09/30/17 11:02 Dose: 3 ml Albuterol/Ipratropium (Duoneb 3 Mg/0.5 Mg (3 Ml) Ud) 3 ml INH RQ2 PRN PRN Reason: Shortness of Breath Artificial Tears (Artificial Tears) 2 drop OU Q6 PRN PRN Reason: Dry eyes Last Admin: 09/29/17 21:35 Dose: 2 drop Atorvastatin Calcium (Lipitor) 10 mg PO HS [facility] Last Admin: 09/29/17 21:36 Dose: 10 mg Folic Acid (Folic Acid) 1 mg PO DAILY [facility] Last Admin: 09/30/17 08:50 Dose: 1 mg Hydroxyzine HCl (Atarax) 10 mg PO TID PRN PRN Reason: Itching / Pruritus Last Admin: 09/29/17 21:35 Dose: 10 mg Piperacillin Sod/Tazobactam (Sod 2.25 gm/ Sodium Chloride) 100 mls @ 100 mls/ hr IVPB Q8 [place] PRN Reason: Protocol Last Admin: 09/30/17 08:51 Dose: 100 mls/hr Methylprednisolone (Solu-Medrol) 40 mg IVP Q6 [facility] Last Admin: 09/30/17 09:04 Dose: 40 mg Pantoprazole Sodium (Protonix Ec Tab) 40 mg PO Q12 [facility] Last Admin: 07/08/18 08:50 Dose: 40 mg - Labs Labs: 09/30/17 04:25 09/30/17 04:25 PT 18.5 Seconds (9.8-13.1) H 09/30/17 04:25 INR 1.7 (0.9-1.2) H 09/30/17 04:25 APTT 28.7 Seconds (25.6-37.1) 09/29/17 04:25 - Constitutional Appears: Toxic, Chronically Ill - Head Exam Head Exam: NORMAL INSPECTION, NORMOCEPHALIC - Eye Exam Eye Exam: EOMI Pupil Exam: NORMAL ACCOMODATION - ENT Exam ENT Exam: Mucous Membranes Dry, Normal External Ear Exam - Neck Exam Neck Exam: Full ROM. absent: Meningismus - Respiratory Exam Respiratory Exam: Accessory Muscle Use, Decreased Breath Sounds, Rales, Rhonchi - Cardiovascular Exam Cardiovascular Exam: REGULAR RHYTHM, +S1, +S2 - GI/Abdominal Exam GI & Abdominal Exam: Soft, Normal Bowel Sounds. absent: Tenderness - Extremities Exam Extremities Exam: Normal Capillary Refill. absent: Calf Tenderness - Back Exam Back Exam: absent: CVA tenderness (L), CVA tenderness (R) - Neurological Exam Neurological Exam: Alert, Awake, Oriented x3 - Psychiatric Exam Psychiatric exam: Flat Affect - Skin Skin Exam: Dry, Pallor, Warm Assessment and Plan - Assessment and Plan (Free Text) Assessment: 62F well known to our service with past medical history of COPD, OLIVIA, severe PAH, SLE, RA, s/p splenectomy with chronic thrombocytopenia, hx CVA, CAD with PCI, hx DVT with IVC filter recently discharged 3 days ago after being admitted for abdominal pain came back bec of abd pain and vomiting. Patient states she still does not have much abdominal pain, however she has had worsening, persistent, moderate nausea associated with nbnb emesis as well as some scant dark stools. She is also very dyspneic and has decreased BS. Patient was found to be in acute on chronic renal failure, and has elevated LFTs as well as TBILI. Patient also bradycardic in 45-50 BPM range, with lightheadedness and generalized malaise. Pt was admitted to ICU for close monitoring . Abd Sono: Contracted gallbladder. No cholelithiasis. CT of the abd :1. Lack of contrast agents limits evaluation. No overt pattern of cholecystitis. Gallbladder appears partially contracted compared to the prior exam when it was more significantly more distended. 2. Mild increase in pelvic ascites. Trace perihepatic ascites extending into right pericolic gutter of uncertain origin. This obscures evaluation of the appendix. 3. Prior splenectomy or congenital absence again evident. 1. Abdominal Pain with Elevated LFTs ? etiology r/o Cholecystitis - MRCP pending - Hepatitis panel pending - GI consulted, Surgery consulted - cont IV Zosyn for now - as per GI - abn LFTS poss due to Ischemic Hepatitis? 2. Bradycardia prob sec to BB cont to monitor rhythm - d/c Toprol -EKG bradycardia, T wave flattening and inversions low voltage, prolonged QTc -45-50 BPM on admission 3.Acute COPD exacerbation continue IV Solumedrol and duonebs cont Bipap q hs and 3-4 liters NC q am 4. r/o Melena pt has history of multiple GIB- had dark stool at home continue Protonix 40mg q12 Occult blood mild coagulopathy 2/2 hepatic insufficiency? hold ASA and Plavix for now GI consult 5. Hyperkalemia no peaked T waves on EKG repeat BMP in AM received Kayexalate 6. CKD Stage III monitor BMP Crea stable 7. SLE/RA Hold on Plaquenil due to abn LFT - on IV Steroids 8. Coagulopathy ? sec to the Liver Dis monitor no signs of bleeding DVT proph - no anticoag due to coagulopathy and thrombocytopenia
--- NOTE | 2017-09-30 15:25 | PN ---
DATE: 09/30/2017 Jess Sykes is seen in the ICU. She is still on oxygen. She is very short of breath. Her abdomen is soft and nontender. She has no pain at this time. Her white count is down to 8.7. BUN is slightly elevated at 1.6. AST and ALT are 261 and 341. Alk phos 132. Regardless of what else happens, she is at very poor surgical risk. We will follow expectantly. Jeffery Persaud MD
[2017-09-30] MEDS: Artificial Tears Opht Soln OU PRN (21:41)
[2017-10-01] MEDS: MethylPREDNISolone 40 mg Vial IVP SCH ×3 (04:41→16:24)
[2017-10-01] MEDS: Albuterol-Ipratrop 3 mg / 0.5 (3 ml) UD INH SCH ×5 (04:43→19:59)
[2017-10-01 05:35] LABS: BASO # 0.1 K/uL (0.0-0.2); BASO % 1.4 % (0.0-2.0); EOS % 0.2 % (0.0-4.0); LYMPH # 0.8 K/uL (1.0-4.3); LYMPH % 8.5 % (20.0-40.0); MEAN CELL VOLUME 92.5 fl (81.0-99.0); MEAN CORPUSCULAR HEMOGLOBIN 27.5 pg (27.0-31.0); MEAN CORPUSCULAR HGB CONC 29.8 g/dL (33.0-37.0); MONO % 10.5 % (0.0-10.0); NEUT # 7.6 K/uL (1.8-7.0); NEUT % 79.4 % (50.0-75.0); NRBC % 12.7 % (0.0-0.0); RBC 3.28 Mil/uL (3.80-5.20); WHITE BLOOD COUNT 9.6 K/uL (4.8-10.8)
[2017-10-01 06:03] LABS: ALB/GLOB RATIO 1.3 (1.0-2.1); ALBUMIN 4.1 g/dL (3.5-5.0); CALCIUM 8.2 mg/dL (8.4-10.2)
--- NOTE | 2017-10-01 07:55 | CP.PCM.PN ---
Subjective - Date & Time of Evaluation Date of Evaluation: 10/01/17 Time of Evaluation: 07:52 - Subjective Subjective: Surgery Pt seen and examined. Pt on BIPAP. No acute events. No complaints. Denies nausea. Pain controlled. Objective - Vital Signs/Intake and Output Vital Signs (last 24 hours): Temp Pulse Resp BP Pulse Ox 98.7 F 65 28 H 140/74 100 10/01/17 04:00 10/01/17 06:00 10/01/17 06:00 10/01/17 06:00 10/01/17 06:00 Intake and Output: 10/01/17 10/01/17 06:59 18:59 Intake Total 240 Output Total 350 Balance -110 - Medications Medications: Current Medications Albuterol/Ipratropium (Duoneb 3 Mg/0.5 Mg (3 Ml) Ud) 3 ml INH RQ4 [place] Last Admin: 10/01/17 04:43 Dose: 3 ml Albuterol/Ipratropium (Duoneb 3 Mg/0.5 Mg (3 Ml) Ud) 3 ml INH RQ2 PRN PRN Reason: Shortness of Breath Artificial Tears (Artificial Tears) 2 drop OU Q6 PRN PRN Reason: Dry eyes Last Admin: 09/30/17 21:41 Dose: 2 drop Atorvastatin Calcium (Lipitor) 10 mg PO HS [facility] Last Admin: 09/30/17 21:41 Dose: 10 mg Folic Acid (Folic Acid) 1 mg PO DAILY [place] Last Admin: 09/30/17 08:50 Dose: 1 mg Hydroxyzine HCl (Atarax) 10 mg PO TID PRN PRN Reason: Itching / Pruritus Last Admin: 09/30/17 21:41 Dose: 10 mg Piperacillin Sod/Tazobactam (Sod 2.25 gm/ Sodium Chloride) 100 mls @ 100 mls/ hr IVPB Q8 [place] PRN Reason: Protocol Last Admin: 10/01/17 00:04 Dose: 100 mls/hr Lactulose (Enulose) 10 gm PO DAILY PRN PRN Reason: Constipation Methylprednisolone (Solu-Medrol) 40 mg IVP Q6 [place] Last Admin: 10/01/17 04:41 Dose: 40 mg Ondansetron HCl (Zofran Inj) 4 mg IVP Q4 PRN PRN Reason: Nausea/Vomiting Pantoprazole Sodium (Protonix Ec Tab) 40 mg PO Q12 [place] Last Admin: 09/30/17 21:41 Dose: 40 mg - Labs Labs: 10/01/17 05:12 10/01/17 05:12 PT 18.5 Seconds (9.8-13.1) H 09/30/17 04:25 INR 1.7 (0.9-1.2) H 09/30/17 04:25 APTT 28.7 Seconds (25.6-37.1) 09/29/17 04:25 - Constitutional Appears: Non-toxic, No Acute Distress - Head Exam Head Exam: ATRAUMATIC, NORMAL INSPECTION, NORMOCEPHALIC - Eye Exam Eye Exam: EOMI, Normal appearance, PERRL Pupil Exam: NORMAL ACCOMODATION, PERRL - ENT Exam ENT Exam: Mucous Membranes Moist, Normal Exam - Neck Exam Neck Exam: Full ROM, Normal Inspection. absent: Lymphadenopathy - Respiratory Exam Respiratory Exam: NORMAL BREATHING PATTERN - Cardiovascular Exam Cardiovascular Exam: REGULAR RHYTHM, +S1, +S2. absent: Murmur - GI/Abdominal Exam GI & Abdominal Exam: Soft, Normal Bowel Sounds. absent: Distended, Tenderness - Extremities Exam Extremities Exam: Full ROM, Normal Capillary Refill, Normal Inspection. absent : Joint Swelling, Pedal Edema - Back Exam Back Exam: NORMAL INSPECTION - Neurological Exam Neurological Exam: Alert, Awake, CN II-XII Intact, Normal Gait, Oriented x3 - Psychiatric Exam Psychiatric exam: Normal Affect, Normal Mood - Skin Skin Exam: Dry, Intact, Normal Color, Warm Assessment and Plan - Assessment and Plan (Free Text) Assessment: 62F w/PMH sig for multiple medical co-morbidities with emesis in setting of hyperbilirubinemia- improving, T bili now 1.6. US showing of gallbaldder wall thickening and fluids likely 2/2 liver ischemia. MRCP: No CBD stone. Plan: Monitor labs No plans for surgical intervention at this time Will MONICA Persaud
[2017-10-01] MEDS: Pantoprazole 40 mg EC Tab PO SCH ×2 (08:53→22:22)
[2017-10-01] MEDS ORDERED: Chlorhexidine Gluconate 1 APPL/PKT TP ONE (08:58)
--- NOTE | 2017-10-01 10:56 | CARD ---
APPROVED REPORT EKG Measurement Heart [id number] <Conclusion> Sinus bradycardia Nonspecific T wave abnormality Abnormal ECG
--- NOTE | 2017-10-01 12:24 | CP.PCM.PN ---
Subjective - Date & Time of Evaluation Date of Evaluation: 10/01/17 Time of Evaluation: 12:00 - Subjective Subjective: Feels better no fever abd pain better no N/V tolerating PO diet LFTs still elevated however slowly trending down no CP no SOB Objective - Vital Signs/Intake and Output Vital Signs (last 24 hours): Temp Pulse Resp BP Pulse Ox 98 F 73 19 132/72 99 10/01/17 12:00 10/01/17 12:00 10/01/17 12:00 10/01/17 12:00 10/01/17 12:00 Intake and Output: 10/01/17 10/01/17 06:59 18:59 Intake Total 240 100 Output Total 350 Balance -110 100 - Medications Medications: Current Medications Albuterol/Ipratropium (Duoneb 3 Mg/0.5 Mg (3 Ml) Ud) 3 ml INH RQ4 [place] Last Admin: 10/01/17 08:14 Dose: 3 ml Albuterol/Ipratropium (Duoneb 3 Mg/0.5 Mg (3 Ml) Ud) 3 ml INH RQ2 PRN PRN Reason: Shortness of Breath Artificial Tears (Artificial Tears) 2 drop OU Q6 PRN PRN Reason: Dry eyes Last Admin: 09/30/17 21:41 Dose: 2 drop Atorvastatin Calcium (Lipitor) 10 mg PO HS [facility] Last Admin: 09/30/17 21:41 Dose: 10 mg Folic Acid (Folic Acid) 1 mg PO DAILY [place] Last Admin: 10/01/17 08:52 Dose: 1 mg Hydroxyzine HCl (Atarax) 10 mg PO TID PRN PRN Reason: Itching / Pruritus Last Admin: 09/30/17 21:41 Dose: 10 mg Piperacillin Sod/Tazobactam (Sod 2.25 gm/ Sodium Chloride) 100 mls @ 100 mls/ hr IVPB Q8 [place] PRN Reason: Protocol Last Admin: 10/01/17 08:53 Dose: 100 mls/hr Lactulose (Enulose) 10 gm PO DAILY PRN PRN Reason: Constipation Methylprednisolone (Solu-Medrol) 40 mg IVP Q6 [place] Last Admin: 10/01/17 09:21 Dose: 40 mg Ondansetron HCl (Zofran Inj) 4 mg IVP Q4 PRN PRN Reason: Nausea/Vomiting Pantoprazole Sodium (Protonix Ec Tab) 40 mg PO Q12 [place] Last Admin: 10/01/17 08:53 Dose: 40 mg - Labs Labs: 10/01/17 05:12 10/01/17 05:12 PT 18.5 Seconds (9.8-13.1) H 09/30/17 04:25 INR 1.7 (0.9-1.2) H 09/30/17 04:25 APTT 28.7 Seconds (25.6-37.1) 09/29/17 04:25 - Constitutional Appears: Toxic, Chronically Ill - Head Exam Head Exam: NORMAL INSPECTION, NORMOCEPHALIC - Eye Exam Eye Exam: EOMI Pupil Exam: NORMAL ACCOMODATION - ENT Exam ENT Exam: Mucous Membranes Dry, Normal External Ear Exam - Neck Exam Neck Exam: Full ROM. absent: Meningismus - Respiratory Exam Respiratory Exam: Accessory Muscle Use, Decreased Breath Sounds, Rales, Rhonchi - Cardiovascular Exam Cardiovascular Exam: REGULAR RHYTHM, +S1, +S2 - GI/Abdominal Exam GI & Abdominal Exam: Soft, Normal Bowel Sounds. absent: Tenderness - Extremities Exam Extremities Exam: Normal Capillary Refill. absent: Calf Tenderness - Back Exam Back Exam: absent: CVA tenderness (L), CVA tenderness (R) - Neurological Exam Neurological Exam: Alert, Awake, Oriented x3 - Psychiatric Exam Psychiatric exam: Flat Affect - Skin Skin Exam: Dry, Pallor, Warm Assessment and Plan - Assessment and Plan (Free Text) Assessment: 62F well known to our service with past medical history of COPD, OLIVIA, severe PAH, SLE, RA, s/p splenectomy with chronic thrombocytopenia, hx CVA, CAD with PCI, hx DVT with IVC filter recently discharged 3 days prior to readmission after being admitted for abdominal pain , patient came back bec of abd pain and vomiting. Patient states she does not have much abdominal pain, however she has had worsening, persistent, moderate nausea associated with nbnb emesis as well as some scant dark stools. She is also very dyspneic and has decreased BS. Patient was found to be in acute on chronic renal failure, and has elevated LFTs. Patient was bradycardic in 45-50 BPM range, with lightheadedness and generalized malaise. She was admitted to ICU for close monitoring . Abd Sono: Contracted gallbladder. No cholelithiasis. CT of the abd :1. Lack of contrast agents limits evaluation. No overt pattern of cholecystitis. Gallbladder appears partially contracted compared to the prior exam when it was more significantly more distended. 2. Mild increase in pelvic ascites. Trace perihepatic ascites extending into right pericolic gutter of uncertain origin. This obscures evaluation of the appendix. 3. Prior splenectomy or congenital absence again evident. MRCP: Suboptimal study due to patient's motion. No evidence of biliary obstruction or choledocholithiasis. Partially distended gallbladder surrounding with pericholecystic fluid and infiltration. No evidence of cholelithiasis. Prior splenectomy. . Small ascites and small bilateral pleural effusions. 1. Abdominal Pain with Elevated LFTs ? etiology - MRCP: distended GB with pericholecystic fluid - Hepatitis panel: negative, IgG: normal - GI consulted, Surgery consulted - cont IV Zosyn for now - as per GI - abn LFTS poss due to Ischemic Hepatitis? 2. Bradycardia prob sec to BB cont to monitor rhythm - d/c Toprol -EKG bradycardia, T wave flattening and inversions low voltage, prolonged QTc -45-50 BPM on admission 3.Acute COPD exacerbation continue IV Solumedrol and duonebs, decrease Solumedrol to 40mg q 8 cont Bipap q hs and 3-4 liters NC q am 4. Dark Stool , H/H stable, unlikely Melena pt has history of multiple GIB- had dark stool at home continue Protonix 40mg q12 Occult blood mild coagulopathy 2/2 hepatic insufficiency? hold ASA and Plavix for now GI consulted 5. Hyperkalemia sec to CKD no peaked T waves on EKG received Kayexalate 6. CKD Stage III monitor BMP Crea stable 7. SLE/RA Hold on Plaquenil due to abn LFT - on IV Steroids 8. Coagulopathy ? sec to the Liver Dis monitor no signs of bleeding 9. Thrombocytopenia , chronic Hx of Splenectomy DVT proph - no anticoag due to coagulopathy and thrombocytopenia
--- NOTE | 2017-10-01 12:24 | MRI ---
PROCEDURE: Magnetic Resonance Cholangiopancreatography HISTORY: COMPARISON: Comparison is made with the previous noncontrast CT dated . TECHNIQUE: Multiplanar, multisequence MR images of the abdomen were obtained, including heavily T2 weighted MRCP images of the biliary system. Rotating maximum intensity projection images of the biliary system were generated. FINDINGS: MRCP: Suboptimal study due due to the patient's motion. The common bile duct is of a normal caliber. No evidence of choledocholithiasis. No intrahepatic biliary ductal dilatation. LIVER: Heterogeneous liver without evidence of discrete mass. All possible cirrhotic changes. 1 centimeter calcification noted at the liver dome. GALLBLADDER: The gallbladder is partially distended surrounding with pericholecystic fluid and possible infiltration. No MRI evidence of cholelithiasis. SPLEEN: The spleen is not visualized likely due to prior splenectomy. PANCREAS: The pancreas is small in size. The main pancreatic duct is not dilated. ADRENALS: Unremarkable. KIDNEYS: Unremarkable. AORTA: No aneurysm. ASCITES: Small ascites is noted more prominent at the right upper abdomen. OTHER FINDINGS: Small bilateral pleural effusions are also noted. There is diffuse mild anasarca and soft tissue edema. IMPRESSION: Suboptimal study due to patient's motion. No evidence of biliary obstruction or choledocholithiasis. Partially distended gallbladder surrounding with pericholecystic fluid and infiltration. No evidence of cholelithiasis. Prior splenectomy. . Small ascites and small bilateral pleural effusions. Preliminary report was submitted by virtual Radiology P
--- NOTE | 2017-10-01 17:09 | PQF ---
PROVIDER RESPONSE TEXT: Acute Liver Failure etiology to be determined ? Due to Ischemic Hepatitis REVIEWER QUERY TEXT: Conflicting Documentation Clarification Acute Liver Failure is documented in the GI consultants notes: please clarify if you are in agreement with this dx. versus Acute Liver Failure ruled out -- OR Other explanation, please specify 09/29 GI consult : Notes @16:40: --Elevated LFT with autoimmune and viral serologies pending. Elevated INR. Likely ischemic hepatitis due to right sided heart failure. Continue antibiotics @16:51 Assessment: w Hx of CHF COPD acaculus cholecystitis, multiple CVA, anxiety who presented to t ED due to emesis, lethary and abd pain Acalculos cholecystitis Elevated Liver enzymes, likely 2/2 above, r/o CBD stone. infectous etiology, autoimmune hx of COPD Acute Liver Failure Plan: -diet as tolerated -blood cultures -MRCP final report pending -autoimmune and viral serolo gies pending -surgery on board -may need PCT if pt worsens and is not a surgical cannidate -continue abx -rest of care as primary team 09/30 GI progress note includes: Elevated Liver enzymes, 2/2 hepatic ischemia? (improving) hx of COPD Acute Liver Failure Plan: -diet as tolerated -blood cultures -MRCP revealed normal CBD w/o stones and no GB stones -autoimmune and viral serologies pending -rapid improvement in LFTs, since cardiac stabilization -continue to keep MAP>65 -will sign off -no acute GI intervention Plan: -diet as tolerated -blood cultures -MRCP final report pending -autoimmune and viral serolo gies pending -surgery on board -may need PCT if pt worsens and is not a surgical cannidate -continue abx -rest of care as primary team The patient's Clinical Indicators include: XXXX Query created by: Lauren Kim on 10/01/2017 2:44 PM Electronically signed by: Lori Mane MD 10/01/2017 5:06 PM
--- NOTE | 2017-10-01 21:39 | PN ---
DATE: 10/01/2017 CRITICAL CARE PROGRESS NOTE LOCATION: The patient in ICU, bed 431. TIME SPENT: 35 minutes. SUBJECTIVE: The patient is seen and evaluated at the bedside. Past medical, surgical, family and social history reviewed. A 62-year-old female with history significant for chronic obstructive pulmonary disease, obstructive sleep apnea, pulmonary artery hypertension, rheumatoid arthritis, status post splenectomy, chronic thrombocytopenia, history of CAD with PCI, history of DVT, status post IVC filter, admitted with abdominal pain associated with nausea and vomiting. CAT scan of the abdomen showed no overt _ cholecystitis, prior splenectomy, or congenital absence of spleen. Overnight on BiPAP, less short of breath. Denies nausea, vomiting. Abdominal pain resolved. Able to tolerate p.o. feeds. No diarrhea or dysuria. PHYSICAL EXAMINATION: VITAL SIGNS: Temperature 97.9, heart rate 71 and regular, blood pressure 145/85, mean arterial pressure 105, respiratory rate at 23. Oxygen saturation 100% on BiPAP, 94% on 3 liters nasal cannula. Intake 584, output 550. Positive balance 34. Weight of 178 pounds. EXAMINATION OF HEAD, EYES, EARS, NOSE, AND THROAT: Pupils are reactive. Conjunctivae pale. Sclerae muddy. NECK: Supple. CHEST: Bilateral breath sounds. HEART: Rhythm regular. S1, S2 normal. ABDOMEN: Bowel sounds present. Soft. Nontender. EXTREMITIES: No clubbing, cyanosis. Normal capillary refill. NEUROLOGIC EXAMINATION Alert, awake, oriented to name, place and time. No motor or sensory impairment. Plantar flexor, deep tendon reflexes are 2+ bilaterally. LABORATORY DATA: WBC 9.6, hemoglobin 9, hematocrit 30.3, platelet count 66, neutrophils 79.4, lymphocytes 8.5, monocytes 10.05. PT 18.5, INR 1.5. ABG, pH of 7.31, pCO2 of 42, pO2 of 69, oxygen saturation 95.4 on FiO2 of 32%. SMA-7, sodium 149, potassium 4.2, chloride 111, CO2 of 23, blood urea nitrogen 52, creatinine 1.6, random glucose 170, calcium 8.2, total bilirubin 1.6, AST 258, ALT 349, alkaline phosphatase 199, total protein 7.3, albumin 4.1. Urinalysis, leukocyte esterase small, rbc 4, microscopic wbc 10, hyaline cast 6 to 10, IgG 1340.2. Serology, hepatitis A IgM antibody negative, hepatitis B surface antigen negative, hepatitis core antibody IgM negative, hepatitis C antibody negative. Microbiology, nasal smear MRSA negative. Blood culture, no growth reported. Abdominal ultrasound, contracted gallbladder, no cholelithiasis. CT abdomen and pelvis, no overt cholecystitis, gallbladder appears partially contracted compared to the prior examination when it was significantly more distended, mild increase in pelvic ascites, trace perihepatic ascites extending into the right pericolic gutter uncertain origin, prior splenectomy. CURRENT MEDICATIONS: Include albuterol/Atrovent inhalation 3 mL via nebulizer every 4 hours as scheduled, Lipitor 10 mg daily, Artificial Tears two drop both eyes every 6 hours, folic acid 1 mg daily, Atarax 10 mg p.o. three times daily, lactulose 10 gm p.o. daily, Solu-Medrol 40 mg IV every 6 hours, Zofran formula IV every 4 hours p.r.n., Protonix 40 p.o. every 12 hours, , Zosyn 2.25 gm IV every 8 hours. IMPRESSION: 1. Abdominal pain with elevated liver function test, etiology unclear, may be related to ischemia. MRCP shows no gallstones, hepatitis panel negative. Continue IV Zosyn for now. 2. Bradycardia, probably secondary to bundle branch block, off Toprol, now back to sinus rhythm. 3. Acute chronic obstructive pulmonary disease exacerbation, on BiPAP at night and oxygen supplement in the morning. Continue DuoNeb 3 mL via nebulizer every 6 hours, reduce systemic steroid. 4. History of melena, continue proton pump inhibitor. 5. Hyperkalemia, resolved. 6. Chronic kidney disease stage III, stable. 7. Systemic lupus erythematosus/rheumatoid arthritis, on IV steroid coagulopathy secondary to the liver disease. 8. Deep venous thrombosis, gastrointestinal prophylaxis. 9. Hemoglobin stable. Anemia of chronic disease. Ad Anand MD MTDAdalgisa
[2017-10-02] MEDS: MethylPREDNISolone 40 mg Vial IVP SCH ×3 (02:00→16:15)
[2017-10-02] MEDS: Albuterol-Ipratrop 3 mg / 0.5 (3 ml) UD INH SCH ×7 (05:14→23:49)
[2017-10-02 05:37] LABS: BASO # 0.1 K/uL (0.0-0.2); BASO % 1.2 % (0.0-2.0); EOS # 0.1 K/uL (0.0-0.7); EOS % 0.6 % (0.0-4.0); HEMOGLOBIN 8.6 g/dL (12.0-16.0); LYMPH # 0.8 K/uL (1.0-4.3); LYMPH % 7.7 % (20.0-40.0); MEAN CORPUSCULAR HEMOGLOBIN 27.4 pg (27.0-31.0); MEAN CORPUSCULAR HGB CONC 30.1 g/dL (33.0-37.0); MEAN PLATELET VOLUME 11.1 fl (7.2-11.7); MONO # 2.1 K/uL (0.0-0.8); MONO % 19.7 % (0.0-10.0); NEUT # 7.5 K/uL (1.8-7.0); NEUT % 70.8 % (50.0-75.0); NRBC % 14.7 % (0.0-0.0); PLATELET COUNT 52 K/uL (130-400); RBC 3.16 Mil/uL (3.80-5.20); RED CELL DISTRIBUTION WIDTH 24.1 % (11.5-14.5); WHITE BLOOD COUNT 10.6 K/uL (4.8-10.8)
[2017-10-02 05:54] LABS: ALB/GLOB RATIO 1.1 (1.0-2.1); ALBUMIN 3.8 g/dL (3.5-5.0); CALCIUM 8.4 mg/dL (8.4-10.2)
--- NOTE | 2017-10-02 07:43 | CP.PCM.PN ---
Subjective - Date & Time of Evaluation Date of Evaluation: 10/02/17 Time of Evaluation: 07:41 - Subjective Subjective: General surgery progress note for Dr. Yolande Zaldivar, PGY-2 Pt S & E at bedside at 0715 Pt reports itchiness over anterior abdomen/chest, some continued abdominal pain (diffuse, upper abdomen)- but controlled with medications. Continues on Bipap due to SOB. Having BMs. Objective - Vital Signs/Intake and Output Vital Signs (last 24 hours): Temp Pulse Resp BP Pulse Ox 97.7 F 68 22 150/96 H 99 10/02/17 04:00 10/02/17 06:00 10/02/17 06:00 10/02/17 06:00 10/02/17 06:00 - Medications Medications: Current Medications Albuterol/Ipratropium (Duoneb 3 Mg/0.5 Mg (3 Ml) Ud) 3 ml INH RQ4 [place] Last Admin: 10/02/17 05:14 Dose: 3 ml Albuterol/Ipratropium (Duoneb 3 Mg/0.5 Mg (3 Ml) Ud) 3 ml INH RQ2 PRN PRN Reason: Shortness of Breath Artificial Tears (Artificial Tears) 2 drop OU Q6 PRN PRN Reason: Dry eyes Last Admin: 09/30/17 21:41 Dose: 2 drop Atorvastatin Calcium (Lipitor) 10 mg PO HS [facility] Last Admin: 10/01/17 22:22 Dose: 10 mg Folic Acid (Folic Acid) 1 mg PO DAILY [facility] Last Admin: 10/01/17 08:52 Dose: 1 mg Hydroxyzine HCl (Atarax) 10 mg PO TID PRN PRN Reason: Itching / Pruritus Last Admin: 09/30/17 21:41 Dose: 10 mg Lactulose (Enulose) 10 gm PO DAILY PRN PRN Reason: Constipation Methylprednisolone (Solu-Medrol) 40 mg IVP Q8 [facility] Last Admin: 10/02/17 02:00 Dose: 40 mg Ondansetron HCl (Zofran Inj) 4 mg IVP Q4 PRN PRN Reason: Nausea/Vomiting Pantoprazole Sodium (Protonix Ec Tab) 40 mg PO Q12 [facility] Last Admin: 10/01/17 22:22 Dose: 40 mg - Labs Labs: 10/02/17 04:45 10/02/17 04:45 PT 18.5 Seconds (9.8-13.1) H 09/30/17 04:25 INR 1.7 (0.9-1.2) H 09/30/17 04:25 APTT 28.7 Seconds (25.6-37.1) 09/29/17 04:25 - Constitutional Appears: Non-toxic, No Acute Distress - Head Exam Head Exam: ATRAUMATIC, NORMAL INSPECTION, NORMOCEPHALIC Additional comments: Bipap mask in place - Eye Exam Eye Exam: EOMI, Normal appearance - ENT Exam ENT Exam: Mucous Membranes Moist, Normal Exam - Respiratory Exam Respiratory Exam: NORMAL BREATHING PATTERN (on bipap) Additional comments: Chest wall with erythematous, pruritic rash over anterior aspect- improving - GI/Abdominal Exam GI & Abdominal Exam: Soft. absent: Distended (obese), Firm, Guarding, Rigid, Tenderness - Extremities Exam Extremities Exam: Normal Inspection - Neurological Exam Neurological Exam: Alert, Awake, Oriented x3 - Psychiatric Exam Psychiatric exam: Normal Affect, Normal Mood - Skin Skin Exam: Rash (over anterior chest wall, mostly upper chest), Warm Assessment and Plan - Assessment and Plan (Free Text) Assessment: 62F w/multiple medical co-morbidities addmitted for emesis in setting of hyperbilirubinemia. T bili decreasing, now 1.4 from 1.6; LFTs all decreasing Hep panel negative Afebrile over last 24H, no leukoctyosis. Plan: Monitor labs No surgical intervention at this time Will follow peripherally Further mgmt as per primary team Will MONICA attending Kayley, PGY-2
[2017-10-02] MEDS: Artificial Tears Opht Soln OU PRN (09:30)
[2017-10-02] MEDS ORDERED: Lactulose 10 gm/15 ml Syrup PO PRN (09:30)
[2017-10-02] MEDS: Pantoprazole 40 mg EC Tab PO SCH ×2 (09:30→21:00)
[2017-10-02 09:40] LABS: BANDS 1 % (0-2); LYMPHOCYTE 2 % (20-50); MONOCYTE 7 % (0-10); MYELOCYTE 1 % (0-0); NEUTROPHIL 89 % (42-75); NUCLEATED RED BLOOD CELL 19 % (0-0); PLATELET ESTIMATE DECREASED (NORMAL); TOTAL CELLS COUNTED 100
[2017-10-02 09:41] LABS: ANISOCYTOSIS MARKED; HYPOCHROMIC MODERATE; TARGET CELLS SLIGHT
[2017-10-02 09:42] LABS: BURR CELLS SLIGHT; LARGE PLATELETS PRESENT; OVALOCYTES SLIGHT; SCHISTOCYTES SLIGHT
--- NOTE | 2017-10-02 09:51 | CP.CCUPN ---
CCU Subjective - Physician Review Subjective (Free Text): 10/02/17 10:45 The patient was Seen/interviewed and examined by me at the bedside, Medical records reviewed and Management issues were discussed and formulated with the house staff. Events reviewed 62 Years old Female with PMHx of HTN, Hypercholesterolemia, CAD, Cardia Arrhythmia, CHF, COPD/ Asthma, CVA x3 with left weakness, Depression, Diverticulitis, Gastritis, Osteoporosis, Peripheral Edema, Rheumatoid Arthritis , Sleep Apnea, TIA, Anemia, Anxiety, Arthritis and Back Problems (chronic back pain) Who initially presented to the ER with c/o generalized weakness, inability to get out of bed or stand, dark stools, vomiting and loss of appetite. She underwent Abd Sono and CT of the abd showing Contracted gallbladder, No overt pattern of cholecystitis, No cholelithiasis, Mild increase in pelvic ascites. MRCP: Partially distended gallbladder surrounding with pericholecystic fluid and infiltration. No evidence of cholelithiasis. No evidence of biliary obstruction or choledocholithiasis. This morning she feels well and is hemodynamically stable, Clinically improving, No Vasopressors Pt AAO x3, sitting comfortable in chair, NAD Breathing unlabored, on 2L NC O2 sat 95-100%. Still with complaint of diffuse Abdomen pain mainly upper Abd Denies any chest pain, SOB or Palpitations Afebrile, NSR on the monitor CCU Objective - Vital Signs / Intake & Output Vital Signs (Last 4 hours): Vital Signs Temp Pulse Resp BP Pulse Ox 10/02/17 08:00 98.6 F 74 8 L 148/73 100 10/02/17 06:00 68 22 150/96 H 99 Intake and Output (Last 8hrs): Intake & Output 10/01/17 10/02/17 10/02/17 22:59 06:59 14:59 Intake Total 100 Balance 100 Intake: Intake, Piggyback 100 Other: # Voids Urine, Voided 1 1 - Physical Exam Head: Positive for: Atraumatic, Normocephalic Pupils: Positive for: PERRL Extroacular Muscles: Positive for: EOMI Conjunctiva: Positive for: Normal Ears: Positive for: Normal Mouth: Positive for: Moist Mucous Membranes Neck: Positive for: Normal Range of Motion, Trachea Midline. Negative for: Meningeal Signs, MIDLINE TENDERNESS, Paraspinal Tenderness, JVD, Lymphadenopathy , Bruit, Other Respiratory/Chest: Positive for: Clear to Auscultation, Good Air Exchange. Negative for: Respiratory Distress, Accessory Muscle Use, Wheezes, Rales, Rhonchi Cardiovascular: Positive for: Regular Rate and Rhythm, Normal S1, S2. Negative for: Murmurs, Tachycardic, Bradycardic Abdomen: Positive for: Normal Bowel Sounds. Negative for: Tenderness, Distention, Rebound, Guarding, Hernias Back: Positive for: Normal Inspection. Negative for: CVA Tenderness Psychiatric: Positive for: Alert, Oriented x 3 - Medications Active Medications: Active Medications Generic Name Dose Route Start Last Admin Trade Name Freq PRN Reason Stop Dose Admin Albuterol/Ipratropium 3 ml 09/28/17 16:00 10/02/17 08:01 Duoneb 3 Mg/0.5 Mg (3 Ml) Ud INH 3 ml RQ4 [facility] Administration Albuterol/Ipratropium 3 ml 09/28/17 13:48 Duoneb 3 Mg/0.5 Mg (3 Ml) Ud INH RQ2 PRN Shortness of Breath Artificial Tears 2 drop 09/28/17 13:50 10/02/17 09:30 Artificial Tears OU 2 drop Q6 PRN Administration Dry eyes Atorvastatin Calcium 10 mg 09/28/17 22:00 10/01/17 22:22 Lipitor PO 10 mg HS [facility] Administration Folic Acid 1 mg 09/29/17 09:00 10/02/17 09:30 Folic Acid PO 1 mg DAILY [facility] Administration Hydroxyzine HCl 10 mg 09/28/17 17:03 09/30/17 21:41 Atarax PO 10 mg TID PRN Administration Itching / Pruritus Lactulose 10 gm 10/02/17 09:30 Enulose PO DAILY PRN Constipation Methylprednisolone 40 mg 10/01/17 17:00 10/02/17 09:30 Solu-Medrol IVP 40 mg Q8 [place] Administration Ondansetron HCl 4 mg 09/30/17 20:25 Zofran Inj IVP Q4 PRN Nausea/Vomiting Pantoprazole Sodium 40 mg 09/28/17 21:00 10/02/17 09:30 Protonix Ec Tab PO 40 mg Q12 [facility] Administration - Patient Studies Lab Studies: Microbiology Studies 09/28/17 13:52 Blood Culture - Preliminary Blood-Venous NO GROWTH AFTER 3 DAYS 09/28/17 13:05 Blood Culture - Preliminary Blood-Venous NO GROWTH AFTER 3 DAYS Lab Studies 10/02/17 10/02/17 09/29/17 Range/Units 04:45 04:45 10:34 WBC 10.6 (4.8-10.8) K/uL RBC 3.16 L (3.80-5.20) Mil/uL Hgb 8.6 L (12.0-16.0) g/dL Hct 28.7 L (34.0-47.0) % MCV 91.0 (81.0-99.0) fl MCH 27.4 (27.0-31.0) pg MCHC 30.1 L (33.0-37.0) g/dL RDW 24.1 H (11.5-14.5) % Plt Count 52 L (130-400) K/uL MPV 11.1 (7.2-11.7) fl Neut % (Auto) 70.8 (50.0-75.0) % Lymph % (Auto) 7.7 L (20.0-40.0) % Tama % (Auto) 19.7 H (0.0-10.0) % Eos % (Auto) 0.6 (0.0-4.0) % Baso % (Auto) 1.2 (0.0-2.0) % Neut # (Auto) 7.5 H (1.8-7.0) K/uL Lymph # (Auto) 0.8 L (1.0-4.3) K/uL Tama # (Auto) 2.1 H (0.0-0.8) K/uL Eos # (Auto) 0.1 (0.0-0.7) K/uL Baso # (Auto) 0.1 (0.0-0.2) K/uL Neutrophils % (Manual) 89 H (42-75) % Band Neutrophils % 1 (0-2) % Lymphocytes % (Manual) 2 L (20-50) % Monocytes % (Manual) 7 (0-10) % Myelocytes % 1 H (0-0) % Nucleated RBC % 19 H (0-0) % Platelet Estimate Decreased L (NORMAL) Large Platelets Present Hypochromasia (manual) Moderate Anisocytosis (manual) Marked Target Cells Slight Ovalocytes Slight Wilmot Cells Slight Schistocytes Slight Sodium 147 (132-148) mmol/l Potassium 4.4 (3.6-5.0) MMOL/L Chloride 109 H (98-107) mmol/L Carbon Dioxide 25 (22-30) mmol/L Anion Gap 17 (10-20) BUN 45 H (7-17) mg/dl Creatinine 1.7 H (0.7-1.2) mg/dl Est GFR ( Amer) 37 Est GFR (Non-Af Amer) 30 Random Glucose 170 H (65-105) mg/dL Calcium 8.4 (8.4-10.2) mg/dL Total Bilirubin 1.4 H (0.2-1.3) mg/dl AST 193 H D (14-36) U/L ALT 327 H (9-52) U/L Alkaline Phosphatase 181 H (38-126) U/L Total Protein 7.1 (6.3-8.2) G/DL Albumin 3.8 (3.5-5.0) g/dL Globulin 3.3 (2.2-3.9) gm/dL Albumin/Globulin Ratio 1.1 (1.0-2.1) Hepatitis Be Antibody Non-reactive (Non-reactive) Hepatitis Be Antigen Non-reactive (Non-reactive) Laboratory Results - last 24 hr 09/29/17 10/02/17 10/02/17 10:34 04:45 04:45 WBC 10.6 RBC 3.16 L Hgb 8.6 L Hct 28.7 L MCV 91.0 MCH 27.4 MCHC 30.1 L RDW 24.1 H Plt Count 52 L MPV 11.1 Neut % (Auto) 70.8 Lymph % (Auto) 7.7 L Tama % (Auto) 19.7 H Eos % (Auto) 0.6 Baso % (Auto) 1.2 Neut # (Auto) 7.5 H Lymph # (Auto) 0.8 L Tama # (Auto) 2.1 H Eos # (Auto) 0.1 Baso # (Auto) 0.1 Neutrophils % (Manual) 89 H Band Neutrophils % 1 Lymphocytes % (Manual) 2 L Monocytes % (Manual) 7 Myelocytes % 1 H Nucleated RBC % 19 H Platelet Estimate Decreased L Large Platelets Present Hypochromasia (manual) Moderate Anisocytosis (manual) Marked Target Cells Slight Ovalocytes Slight [place] Cells Slight Schistocytes Slight Sodium 147 Potassium 4.4 Chloride 109 H Carbon Dioxide 25 Anion Gap 17 BUN 45 H Creatinine 1.7 H Est GFR ( Amer) 37 Est GFR (Non-Af Amer) 30 Random Glucose 170 H Calcium 8.4 Total Bilirubin 1.4 H AST 193 H D ALT 327 H Alkaline Phosphatase 181 H Total Protein 7.1 Albumin 3.8 Globulin 3.3 Albumin/Globulin Ratio 1.1 Hepatitis Be Antibody Non-reactive Hepatitis Be Antigen Non-reactive Review of Systems - Constitutional Constitutional: absent: Fever, Chills - Cardiovascular Cardiovascular: absent: Chest Pain, Chest Pain at Rest, Chest Pain with Activity , Claudication, Diaphoresis - Respiratory Respiratory: Dyspnea, Dyspnea on Exertion. absent: Cough, Hemoptysis, Wheezing , Snoring - Gastrointestinal Gastrointestinal: Abdominal Pain. absent: Coffee Ground Emesis, Hematemesis, Melena, Nausea, Vomiting Critical Care Progress Note - Extremities/Vascular Does the Patient have a Central Venous Catheter?: No Does the Patient need a Central Venous Catheter?: No Does the Patient have a Mcdaniel Catheter?: No Does the Patient need a Mcdaniel Catheter?: No - Nutrition Nutrition: Nutrition Category Date Time Status Heart Healthy Diet [DIET] Diets 09/28/17 Dinner Active Assessment/Plan (1) Abdominal pain Current Visit: Yes Status: Acute Priority: High Comment: Continue Hydrations, IV Zosyn and pain control LFT trending down AST 633-->261-->258-->193 ALT 443-->341-->349-->327 Robbin 1.4 (2) Bradycardia Current Visit: Yes Status: Acute Priority: High Comment: HR better Toprol discontinued (3) COPD exacerbation Current Visit: Yes Status: Acute Priority: Medium Comment: Methylprednisolone (Solu-Medrol) 40 mg IVP Q6 Albuterol/Ipratropium (Duoneb) INH RQ4 (4) History of CVA with residual deficit Current Visit: No Status: Chronic Priority: Medium Comment: H/O CVA (x3 with left weakness) (5) 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
--- NOTE | 2017-10-02 11:51 | CP.PCM.PN ---
Subjective - Date & Time of Evaluation Date of Evaluation: 10/02/17 Time of Evaluation: 08:00 - Subjective Subjective: Patient states that her pain is a little better today. No fever, nausea, vomiting. Able to tolerate po diet. LFT still elevated but slowly trending down. Bilirubin also slowly trending down. Complains of shortness of breath today and is midly tachypneic but saturating ok. Denies any other complaints at present. Objective - Vital Signs/Intake and Output Vital Signs (last 24 hours): Temp Pulse Resp BP Pulse Ox 98.6 F 74 8 L 148/73 100 10/02/17 08:00 10/02/17 08:00 10/02/17 08:00 10/02/17 08:00 10/02/17 08:00 Intake and Output: 10/02/17 10/02/17 06:59 18:59 Intake Total 280 Balance 280 - Medications Medications: Current Medications Albuterol/Ipratropium (Duoneb 3 Mg/0.5 Mg (3 Ml) Ud) 3 ml INH RQ4 [facility] Last Admin: 10/02/17 11:11 Dose: 3 ml Albuterol/Ipratropium (Duoneb 3 Mg/0.5 Mg (3 Ml) Ud) 3 ml INH RQ2 PRN PRN Reason: Shortness of Breath Artificial Tears (Artificial Tears) 2 drop OU Q6 PRN PRN Reason: Dry eyes Last Admin: 10/02/17 09:30 Dose: 2 drop Atorvastatin Calcium (Lipitor) 10 mg PO HS [facility] Last Admin: 10/01/17 22:22 Dose: 10 mg Folic Acid (Folic Acid) 1 mg PO DAILY [facility] Last Admin: 10/02/17 09:30 Dose: 1 mg Hydroxyzine HCl (Atarax) 10 mg PO TID PRN PRN Reason: Itching / Pruritus Last Admin: 09/30/17 21:41 Dose: 10 mg Lactulose (Enulose) 10 gm PO DAILY PRN PRN Reason: Constipation Methylprednisolone (Solu-Medrol) 40 mg IVP Q8 [facility] Last Admin: 10/02/17 09:30 Dose: 40 mg Ondansetron HCl (Zofran Inj) 4 mg IVP Q4 PRN PRN Reason: Nausea/Vomiting Pantoprazole Sodium (Protonix Ec Tab) 40 mg PO Q12 [facility] Last Admin: 10/02/17 09:30 Dose: 40 mg - Labs Labs: 10/02/17 04:45 10/02/17 04:45 PT 18.5 Seconds (9.8-13.1) H 09/30/17 04:25 INR 1.7 (0.9-1.2) H 09/30/17 04:25 APTT 28.7 Seconds (25.6-37.1) 09/29/17 04:25 - Additional Findings Additional findings: Physical exam: Constitutional- cooperative, awake, alert Head- NCAT, PERRL. Some ecchymosis around the lower face bilaterally Eye- PERRL, EOMI ENT- normal exam, MMM. Neck- normal inspection, supple, no JVD Respiratory- CTAB, bilateral wheezing, no rales rhonchi Cardiovascular- RRR, +S1, +S2 no MRG GI/Abdominal- + Abdominal pain to palpation. normal bowel sounds, soft, no mass , no hsm Skin- warm, dry Extremities Exam- normal capillary refill, normal inspection Neurological Exam- alert, awake, oriented Psych- normal mood, normal affect Assessment and Plan - Assessment and Plan (Free Text) Plan: 62F well known to our service with past medical history of COPD, OLIVIA, severe PAH, SLE, RA, s/p splenectomy with chronic thrombocytopenia, hx CVA, CAD with PCI, hx DVT with IVC filter recently discharged 3 days prior to readmission after being admitted for abdominal pain , patient came back bec of abd pain and vomiting. Patient states she does not have much abdominal pain, however she has had worsening, persistent, moderate nausea associated with nbnb emesis as well as some scant dark stools. She is also very dyspneic and has decreased BS. Patient was found to be in acute on chronic renal failure, and has elevated LFTs. Patient was bradycardic in 45-50 BPM range, with lightheadedness and generalized malaise. She was admitted to ICU for close monitoring . Abd Sono: Contracted gallbladder. No cholelithiasis. CT of the abd :1. Lack of contrast agents limits evaluation. No overt pattern of cholecystitis. Gallbladder appears partially contracted compared to the prior exam when it was more significantly more distended. 2. Mild increase in pelvic ascites. Trace perihepatic ascites extending into right pericolic gutter of uncertain origin. This obscures evaluation of the appendix. 3. Prior splenectomy or congenital absence again evident. MRCP: Suboptimal study due to patient's motion. No evidence of biliary obstruction or choledocholithiasis. Partially distended gallbladder surrounding with pericholecystic fluid and infiltration. No evidence of cholelithiasis. Prior splenectomy. . Small ascites and small bilateral pleural effusions. 1. Abdominal Pain with Elevated LFTs ? etiology, possibly due to ischemic hepatitis as per gastroenterology - no surgical intervention at this time - MRCP: distended GB with pericholecystic fluid - Hepatitis panel: negative, IgG: normal - GI consulted, Surgery consulted - cont IV Zosyn for now - as per GI - abn LFTS poss due to Ischemic Hepatitis? 2. Bradycardia prob sec to BB cont to monitor rhythm - d/c Toprol -EKG bradycardia, T wave flattening and inversions low voltage, prolonged QTc -45-50 BPM on admission 3.Acute COPD exacerbation continue IV Solumedrol and duonebs, decrease Solumedrol to 40mg q 8 cont Bipap q hs and 3-4 liters NC q am 4. Dark Stool , H/H stable, unlikely Melena pt has history of multiple GIB- had dark stool at home continue Protonix 40mg q12 Occult blood mild coagulopathy 2/2 hepatic insufficiency? hold ASA and Plavix for now GI consulted 5. Hyperkalemia sec to CKD no peaked T waves on EKG received Kayexalate 6. CKD Stage III monitor BMP Crea stable 7. SLE/RA Hold on Plaquenil due to abn LFT - on IV Steroids 8. Coagulopathy ? sec to the Liver Dis monitor no signs of bleeding 9. Thrombocytopenia , chronic Hx of Splenectomy DVT proph - no anticoag due to coagulopathy and thrombocytopenia Disp: to [facility] when improved
[2017-10-03] MEDS: MethylPREDNISolone 40 mg Vial IVP SCH ×3 (00:18→16:19)
[2017-10-03] MEDS: Albuterol-Ipratrop 3 mg / 0.5 (3 ml) UD INH SCH ×5 (05:05→19:12)
[2017-10-03 06:13] LABS: MEAN CELL VOLUME 90.8 fl (81.0-99.0); MEAN CORPUSCULAR HEMOGLOBIN 27.2 pg (27.0-31.0); RBC 3.3 Mil/uL (3.80-5.20); RED CELL DISTRIBUTION WIDTH 24.1 % (11.5-14.5); WHITE BLOOD COUNT 10.6 K/uL (4.8-10.8)
[2017-10-03 06:37] LABS: ALB/GLOB RATIO 1.2 (1.0-2.1); ALBUMIN 4.1 g/dL (3.5-5.0); CALCIUM 9.1 mg/dL (8.4-10.2)
[2017-10-03] MEDS: Pantoprazole 40 mg EC Tab PO SCH (08:52)
--- NOTE | 2017-10-03 09:41 | CP.PCM.PN ---
Subjective - Date & Time of Evaluation Date of Evaluation: 10/03/17 Time of Evaluation: 09:30 - Subjective Subjective: No fever SOB on exertion + cough sl wheezing was placed on Bipap yesterday due to increase SOB, today saturating well on 3 liters O2 denies abd pain no N/V tolerating PO diet Objective - Vital Signs/Intake and Output Vital Signs (last 24 hours): Temp Pulse Resp BP Pulse Ox 97.9 F 81 19 145/84 98 10/03/17 08:00 10/03/17 08:00 10/03/17 08:00 10/03/17 08:00 10/03/17 08:00 Intake and Output: 10/03/17 10/03/17 06:59 18:59 Intake Total 330 Output Total 300 Balance 30 - Medications Medications: Current Medications Albuterol/Ipratropium (Duoneb 3 Mg/0.5 Mg (3 Ml) Ud) 3 ml INH RQ4 [facility] Last Admin: 10/03/17 07:58 Dose: 3 ml Albuterol/Ipratropium (Duoneb 3 Mg/0.5 Mg (3 Ml) Ud) 3 ml INH RQ2 PRN PRN Reason: Shortness of Breath Artificial Tears (Artificial Tears) 2 drop OU Q6 PRN PRN Reason: Dry eyes Last Admin: 10/02/17 09:30 Dose: 2 drop Atorvastatin Calcium (Lipitor) 10 mg PO HS [facility] Last Admin: 10/02/17 21:00 Dose: 10 mg Fluocinonide (Lidex 0.05% Oint) 1 applic TOP BID [facility] Folic Acid (Folic Acid) 1 mg PO DAILY [facility] Last Admin: 10/03/17 08:51 Dose: 1 mg Hydroxyzine HCl (Atarax) 10 mg PO TID PRN PRN Reason: Itching / Pruritus Last Admin: 10/03/17 05:15 Dose: 10 mg Lactulose (Enulose) 10 gm PO DAILY PRN PRN Reason: Constipation Methylprednisolone (Solu-Medrol) 40 mg IVP Q8 [facility] Last Admin: 10/03/17 08:53 Dose: 40 mg Nystatin (Nystop Topical Powder) 1 applic TOP BID [facility] Ondansetron HCl (Zofran Inj) 4 mg IVP Q4 PRN PRN Reason: Nausea/Vomiting Pantoprazole Sodium (Protonix Ec Tab) 40 mg PO DAILY [facility] Last Admin: 10/03/17 08:52 Dose: 40 mg - Labs Labs: 10/03/17 04:20 10/03/17 04:20 PT 18.5 Seconds (9.8-13.1) H 09/30/17 04:25 INR 1.7 (0.9-1.2) H 09/30/17 04:25 APTT 28.7 Seconds (25.6-37.1) 09/29/17 04:25 - Constitutional Appears: Toxic, Chronically Ill - Head Exam Head Exam: NORMAL INSPECTION, NORMOCEPHALIC - Eye Exam Eye Exam: EOMI Pupil Exam: NORMAL ACCOMODATION - ENT Exam ENT Exam: Mucous Membranes Dry, Normal External Ear Exam - Neck Exam Neck Exam: Full ROM. absent: Meningismus - Respiratory Exam Respiratory Exam: Accessory Muscle Use, Decreased Breath Sounds, Rales, Rhonchi , + mild wheezing - Cardiovascular Exam Cardiovascular Exam: REGULAR RHYTHM, +S1, +S2 - GI/Abdominal Exam GI & Abdominal Exam: Soft, Normal Bowel Sounds. absent: Tenderness - Extremities Exam Extremities Exam: Normal Capillary Refill. absent: Calf Tenderness - Back Exam Back Exam: absent: CVA tenderness (L), CVA tenderness (R) - Neurological Exam Neurological Exam: Alert, Awake, Oriented x3 - Psychiatric Exam Psychiatric exam: Flat Affect - Skin Skin Exam: Dry, Pallor, Warm Assessment and Plan - Assessment and Plan (Free Text) Assessment: 62F well known to our service with past medical history of COPD, OLIVIA, severe PAH, SLE, RA, s/p splenectomy with chronic thrombocytopenia, hx CVA, CAD with PCI, hx DVT with IVC filter recently discharged 3 days prior to readmission after being admitted for abdominal pain , patient came back bec of abd pain and vomiting. Patient states she does not have much abdominal pain, however she has had worsening, persistent, moderate nausea associated with nbnb emesis as well as some scant dark stools. She is also very dyspneic and has decreased BS. Patient was found to be in acute on chronic renal failure, and has elevated LFTs. Patient was bradycardic in 45-50 BPM range, with lightheadedness and generalized malaise. She was admitted to ICU for close monitoring . Abd Sono: Contracted gallbladder. No cholelithiasis. CT of the abd :1. Lack of contrast agents limits evaluation. No overt pattern of cholecystitis. Gallbladder appears partially contracted compared to the prior exam when it was more significantly more distended. 2. Mild increase in pelvic ascites. Trace perihepatic ascites extending into right pericolic gutter of uncertain origin. This obscures evaluation of the appendix. 3. Prior splenectomy or congenital absence again evident. MRCP: Suboptimal study due to patient's motion. No evidence of biliary obstruction or choledocholithiasis. Partially distended gallbladder surrounding with pericholecystic fluid and infiltration. No evidence of cholelithiasis. Prior splenectomy. . Small ascites and small bilateral pleural effusions. 1. Abdominal Pain with Acute Liver Failure ? etiology- as per GI - abn LFTS poss due to Ischemic Hepatitis? - MRCP: distended GB with pericholecystic fluid - Hepatitis panel: negative, IgG: normal - GI consulted, Surgery consulted- per Surgery , no surgical intervention -Pt's abd pain resolved , LFTS trending down - cont IV Zosyn for now 2. Bradycardia prob sec to BB cont to monitor rhythm - d/c Toprol -EKG bradycardia, T wave flattening and inversions low voltage, prolonged QTc -45-50 BPM on admission, HR now normal 3.Acute COPD exacerbation continue IV Solumedrol and duonebs, decrease Solumedrol to 40mg q 8 cont Bipap q hs and 3-4 liters NC q am -Pulm consult - Dr Thomas 4. Dark Stool , H/H stable, unlikely Melena pt has history of multiple GIB- had dark stool at home continue Protonix 40mg q12 Occult blood mild coagulopathy 2/2 hepatic insufficiency? hold ASA and Plavix for now GI consulted 5. Hyperkalemia sec to CKD no peaked T waves on EKG received Kayexalate 6. CKD Stage III monitor BMP Crea stable 7. SLE/RA Hold on Plaquenil due to abn LFT - on IV Steroids 8. Coagulopathy ? sec to the Liver Dis monitor no signs of bleeding 9. Thrombocytopenia , chronic Hx of Splenectomy DVT proph - no anticoag due to coagulopathy and thrombocytopenia
--- NOTE | 2017-10-03 18:08 | CP.CCUPN ---
CCU Subjective - Physician Review Subjective (Free Text): Awake alert, OOB in chair, on NC oxygen, in pleasant mood. Other vitals and I/O's reviewed. No fever spikes noted. ROS: No other pertinent negs or positives on 10+ system review obtainable due to intubation. PMSFH: COPD, CAD with [place] x4, SLE, RA, CVA x4 with L hemiparesis, HTN. All other Nursing and physician documentation reviewed to date; no new pertinent info noted relevant to current medical problems. EXAM- HEENT: no icterus, no gaze preference NECK: No JVD, supple, carotids equal upstroke bilat/no bruits CHEST: decreased BS bases, no wheezes audible HEART: regular, distant, S1S2, no rubs or murmurs ABD: soft, obese, no distention, no tympany, no palp tenderness, BS hypoactive EXT: no peripheral/ digital cyanosis, no calf tenderness or palpable cords, distal pulses intact and symmetrical. NEURO: left hemiparesis SKIN: no rashes, warm and dry. LABS: WBC= 10.6 HGB= 9.0 PLTs= 55K Rf=338 K= 4.5 CL= 106 HCO3= 24 BUN/Cr= 46/1.5 BS= 177 Tbili= 1.4 AST = 144 ALT= 309 AP = 189 IMPRESSION / MAJOR PROBLEMS NOW: 1. Metabolic encephalopathy 2 Azotemia, r/o Sepsis 2 Biliary tract disease. 2. Thrombocytopenia 3. Dehydration with Azotemia ( [id number]) and Hyperkalemia-- imporved 4. Bradycardia 2 Hyperkalemia and BB effects- resolved 5. Chronic Disease Anemia: with melena reported by patient- stable PLAN: 1. Imprved mental and resp status, will remain on BiPAP support overnight as needed as she does at home. 2. Resoliving LFTs, no biliary obstruction on MRI study. 3. Watch platelet counts, no bleeding, check repeat Coags. ??possible medication effect versus DIC, doubt TTP or HUS. CCU Objective - Vital Signs / Intake & Output Vital Signs (Last 4 hours): Vital Signs Temp Pulse Resp BP Pulse Ox 10/03/17 16:00 97.4 F L 79 26 H 125/69 97 Intake and Output (Last 8hrs): Intake & Output 10/03/17 10/03/17 10/03/17 06:59 14:59 22:59 Intake Total 210 540 50 Output Total 100 200 Balance 110 540 -150 Intake: IV 10 Oral 200 540 50 Output: Urine 100 200 Urine, Voided 100 200 Other: # Voids Urine, Voided 1 1
[2017-10-04] MEDS: Albuterol-Ipratrop 3 mg / 0.5 (3 ml) UD INH SCH ×7 (00:13→23:02)
[2017-10-04] MEDS: MethylPREDNISolone 40 mg Vial IVP SCH ×4 (00:41→21:15)
[2017-10-04 05:03] LABS: HEMOGLOBIN 8.9 g/dL (12.0-16.0); MEAN CELL VOLUME 91.2 fl (81.0-99.0); MEAN CORPUSCULAR HEMOGLOBIN 27.3 pg (27.0-31.0); RBC 3.26 Mil/uL (3.80-5.20); RED CELL DISTRIBUTION WIDTH 24.7 % (11.5-14.5); WHITE BLOOD COUNT 11.3 K/uL (4.8-10.8)
[2017-10-04 05:13] LABS: INR 1.2 (0.9-1.2); PROTHROMBIN TIME 13.8 Seconds (9.8-13.1)
[2017-10-04 05:17] LABS: ALB/GLOB RATIO 1.2 (1.0-2.1); ALBUMIN 3.9 g/dL (3.5-5.0); CALCIUM 9.3 mg/dL (8.4-10.2)
[2017-10-04] MEDS ORDERED: Sod Polystyrene Sulf 15 gm/60 ml Susp PO ONE (07:42)
[2017-10-04] MEDS: Pantoprazole 40 mg EC Tab PO SCH (09:11)
[2017-10-04] MEDS: Artificial Tears Opht Soln OU PRN ×2 (09:12→17:51)
--- NOTE | 2017-10-04 09:31 | CP.PCM.PN ---
Subjective - Date & Time of Evaluation Date of Evaluation: 10/04/17 Time of Evaluation: 09:00 - Subjective Subjective: No fever SOB better wheezing resolved Pt is saturating well on 3 liters NC LFTs better complains of pruritis rash on chest- none in other pasrt of the body Objective - Vital Signs/Intake and Output Vital Signs (last 24 hours): Temp Pulse Resp BP Pulse Ox 98 F 75 18 154/104 H 91 L 10/04/17 08:00 10/04/17 08:00 10/04/17 08:00 10/04/17 08:00 10/04/17 08:00 Intake and Output: 10/04/17 10/04/17 06:59 18:59 Intake Total 120 Balance 120 - Medications Medications: Current Medications Albuterol/Ipratropium (Duoneb 3 Mg/0.5 Mg (3 Ml) Ud) 3 ml INH RQ4 [facility] Last Admin: 10/04/17 07:48 Dose: 3 ml Albuterol/Ipratropium (Duoneb 3 Mg/0.5 Mg (3 Ml) Ud) 3 ml INH RQ2 PRN PRN Reason: Shortness of Breath Artificial Tears (Artificial Tears) 2 drop OU Q6 PRN PRN Reason: Dry eyes Last Admin: 10/04/17 09:12 Dose: 2 drop Atorvastatin Calcium (Lipitor) 10 mg PO HS [facility] Last Admin: 10/03/17 22:19 Dose: 10 mg Fluocinonide (Lidex 0.05% Oint) 1 applic TOP BID [facility] Last Admin: 10/04/17 09:10 Dose: 1 applic Folic Acid (Folic Acid) 1 mg PO DAILY [facility] Last Admin: 10/04/17 09:11 Dose: 1 mg Hydroxyzine HCl (Atarax) 10 mg PO TID PRN PRN Reason: Itching / Pruritus Last Admin: 10/04/17 08:03 Dose: 10 mg Lactulose (Enulose) 10 gm PO DAILY PRN PRN Reason: Constipation Methylprednisolone (Solu-Medrol) 40 mg IVP Q8 [facility] Last Admin: 10/04/17 09:11 Dose: 40 mg Nystatin (Nystop Topical Powder) 1 applic TOP BID [facility] Last Admin: 10/04/17 09:10 Dose: 1 applic Ondansetron HCl (Zofran Inj) 4 mg IVP Q4 PRN PRN Reason: Nausea/Vomiting Pantoprazole Sodium (Protonix Ec Tab) 40 mg PO DAILY [facility] Last Admin: 10/04/17 09:11 Dose: 40 mg - Labs Labs: 10/04/17 04:40 10/04/17 04:40 PT 13.8 Seconds (9.8-13.1) H 10/04/17 04:40 INR 1.2 (0.9-1.2) 10/04/17 04:40 APTT 28.7 Seconds (25.6-37.1) 09/29/17 04:25 - Constitutional Appears: Toxic, Chronically Ill - Head Exam Head Exam: NORMAL INSPECTION, NORMOCEPHALIC - Eye Exam Eye Exam: EOMI Pupil Exam: NORMAL ACCOMODATION - ENT Exam ENT Exam: Mucous Membranes Dry, Normal External Ear Exam - Neck Exam Neck Exam: Full ROM. absent: Meningismus - Respiratory Exam Respiratory Exam: Decreased Breath Sounds, Rales, Rhonchi - Cardiovascular Exam Cardiovascular Exam: REGULAR RHYTHM, +S1, +S2 - GI/Abdominal Exam GI & Abdominal Exam: Soft, Normal Bowel Sounds. absent: Tenderness - Extremities Exam Extremities Exam: Normal Capillary Refill. absent: Calf Tenderness - Back Exam Back Exam: absent: CVA tenderness (L), CVA tenderness (R) - Neurological Exam Neurological Exam: Alert, Awake, Oriented x3 - Psychiatric Exam Psychiatric exam: Flat Affect - Skin Skin Exam: Dry, Pallor, Warm Assessment and Plan - Assessment and Plan (Free Text) Assessment: 62F well known to our service with past medical history of COPD, OLIVIA, severe PAH, SLE, RA, s/p splenectomy , chronic thrombocytopenia, hx CVA, CAD with PCI, hx DVT with IVC filter recently discharged 3 days prior to readmission after being admitted for abdominal pain , patient came back bec of abd pain and vomiting. Patient states she does not have much abdominal pain, however she has had worsening, persistent, moderate nausea associated with nbnb emesis as well as some scant dark stools. She is also very dyspneic and has decreased BS. Patient was found to be in acute on chronic renal failure, and has elevated LFTs. Patient was bradycardic in 45-50 BPM range, with lightheadedness and generalized malaise. She was admitted to ICU for close monitoring . Abd Sono: Contracted gallbladder. No cholelithiasis. CT of the abd :1. Lack of contrast agents limits evaluation. No overt pattern of cholecystitis. Gallbladder appears partially contracted compared to the prior exam when it was more significantly more distended. 2. Mild increase in pelvic ascites. Trace perihepatic ascites extending into right pericolic gutter of uncertain origin. This obscures evaluation of the appendix. 3. Prior splenectomy or congenital absence again evident. MRCP: Suboptimal study due to patient's motion. No evidence of biliary obstruction or choledocholithiasis. Partially distended gallbladder surrounding with pericholecystic fluid and infiltration. No evidence of cholelithiasis. Prior splenectomy. . Small ascites and small bilateral pleural effusions. 1. Abdominal Pain with Acute Liver Failure ? etiology- as per GI - abn LFTS poss due to Ischemic Hepatitis - MRCP: distended GB with pericholecystic fluid - Hepatitis panel: negative, IgG: normal - GI consulted, Surgery consulted- per Surgery , no surgical intervention -Pt's abd pain resolved , LFTS trending down - cont IV Zosyn for now 2. Bradycardia prob sec to BB cont to monitor rhythm - d/c Toprol -EKG bradycardia, T wave flattening and inversions low voltage, prolonged QTc -45-50 BPM on admission, HR now normal 3.Acute COPD exacerbation continue IV Solumedrol and duonebs, decrease Solumedrol to 40mg q 8 cont Bipap q hs and 3-4 liters NC q am -Pulm consult - Dr Thomas 4. Dark Stool , H/H stable, unlikely Melena pt has history of multiple GIB- had dark stool at home continue Protonix 40mg q12 Occult blood negative mild coagulopathy 2/2 hepatic insufficiency? hold ASA and Plavix for now GI consulted 5. Hyperkalemia sec to CKD no peaked T waves on EKG received Kayexalate 6. CKD Stage III monitor BMP Crea stable 7. SLE/RA Hold on Plaquenil due to abn LFT - on IV Steroids 8. Coagulopathy ? sec to the Liver Dis monitor no signs of bleeding 9. Thrombocytopenia , chronic as per pt shehad low platelets and had Splenectomy due to RA no bleeding- will monitor GI following pt 10 Rash on Chest poss Contact Dermatitis cont Lidex oitment - start Claritin, Singulair DVT proph - no anticoag due to coagulopathy and thrombocytopenia
--- NOTE | 2017-10-04 13:44 | PQF ---
PROVIDER RESPONSE TEXT: Sepsis ruled out REVIEWER QUERY TEXT: Clarification of Clinical Diagnostic Findings Sepsis ruled in or ruled out? OR: Other explanation of clinical finding Critical Care progress notes of 09/28 and 10/03: Metabolic encephalopathy 2 Azotemia, r/o Sepsis 2 Bilia ry tract disease The patient's Clinical Indicators include: xxxx Query created by: Lauren Kim on 10/04/2017 12:20 PM Electronically signed by: Lori Mane MD 10/04/2017 1:41 PM
--- NOTE | 2017-10-04 15:26 | CP.CCUPN ---
CCU Subjective - Physician Review Subjective (Free Text): Awake and alert, OOB in chair, but exhibited REBOLLEDO with this activity ( actually not more worse than ususal), on NC oxygen, in pleasant mood. Has mild localized mild erythematous macular rash over anterior chest area only. Other vitals and I/O's reviewed. No fever spikes noted. SBPs 130-150s. Hr 75. Average SPO2 95-97% on NC. ROS: No other pertinent negs or positives on 10+ system review obtainable due to intubation. PMSFH: COPD, CAD with [place] x4, SLE, RA, CVA x4 with L hemiparesis, HTN. All other Nursing and physician documentation reviewed to date; no new pertinent info noted relevant to current medical problems. EXAM- HEENT: no icterus, no gaze preference NECK: No JVD, supple, carotids equal upstroke bilat/no bruits CHEST: decreased BS bases, no wheezes audible HEART: regular, distant, S1S2, no rubs or murmurs ABD: soft, obese, no distention, no tympany, no palp tenderness, BS hypoactive EXT: no peripheral/ digital cyanosis, no calf tenderness or palpable cords, distal pulses intact and symmetrical. NEURO: left hemiparesis SKIN: no rashes, warm and dry. LABS: WBC= 11.3 HGB= 8.9 PLTs= 49K Dg=237 K= 5.5 CL= 106 HCO3= 24 BUN/Cr= 57/1.4 BS= 174 Tbili= 1.5 AST = 121 ALT= 274 AP = 190 IMPRESSION / MAJOR PROBLEMS NOW: 1. Metabolic encephalopathy 2 Azotemia, r/o Sepsis 2 Biliary tract disease. 2. Thrombocytopenia 3. Dehydration with Azotemia ( [id number]) and Hyperkalemia-- improved 4. Bradycardia 2 Hyperkalemia and BB effects 5. Chronic Disease Anemia: with melena reported by patient- stable PLAN: 1. Improved mental and resp status, will remain on BiPAP support overnight as needed as she does at home. 2. Resolving LFTs (transaminases only), except for AlkPhos levels, no biliary obstruction on MRI study. 3. Watch platelet counts, no bleeding, repeat Coags have normalized. ?? possible medication effect versus DIC, doubt TTP or HUS. 4. Give dose of Kayexalate today: K levels rising again.
--- NOTE | 2017-10-04 19:52 | CP.PCM.CON ---
History of Present Illness - History of Present Illness History of Present Illness: Pulmonary consult. 62 y/o F, admitted on 09/28/17 to [facility], [place] due to Abdominal pain associated to n/v/d for days, increased on DOA. Pt was found with thickening of the GB wall and elevated LFTs and was admitted to ICU. Pt was discharged from this hospital on 09/25/17 after been Tx for same symptoms. Pt has Multiple chronic medical conditions including Hx COPD, CVA x4, SLE, R/A. I was called in pulmonary consult due to increased SOB on 10/02/17 with no relief, associated to dry cough, unable to expectorate, Pt using steroids and Duoneb. Worsening symptom: REBOLLEDO. Found with acute on chronic CHF. Aggravated factor: Increased SOB with Movement/exercise. Pt denied: Fever, chills, CP, palpitations, dizziness, bloody cough, urinary symptoms, sick contact. Review of Systems - Constitutional Constitutional: Weakness - EENT Eyes: Other (negative) Ears: Other (negative) Nose/Mouth/Throat: Other (negative) - Cardiovascular Cardiovascular: Dyspnea, Dyspnea on Exertion - Respiratory Respiratory: Cough, Dyspnea, Dyspnea on Exertion - Gastrointestinal Gastrointestinal: Abdominal Pain, Diarrhea, Nausea, Vomiting - Genitourinary Genitourinary: Other (negative) - Musculoskeletal Musculoskeletal: Arthralgias, Back Pain (chronic), Muscle Weakness - Integumentary Integumentary: Rash (anterior chest are) - Neurological Neurological: Weakness - Endocrine Endocrine: Other (negative) - Hematologic/Lymphatic Hematologic: Other (negative) Past Patient History - Infectious Disease Hx of Infectious Diseases: None - Tetanus Immunizations Tetanus Immunization: Unknown - Past Medical History & Family History Past Medical History?: Yes Pertinent Family History: Mother: DM,HTN CABG. Father: DM, HTN, CVA - Past Social History Smoking Status: Former Smoker Alcohol: None Drugs: Denies Home Situation {Lives}: Alone - CARDIAC Hx Cardiac Disorders: Yes Hx Cardia Arrhythmia: Yes Hx Congestive Heart Failure: Yes Hx Hypertension: Yes Hx Peripheral Vascular Disease: Yes Other/Comment: stents - PULMONARY Hx Respiratory Disorders: Yes Hx Asthma: Yes Hx Chronic Obstructive Pulmonary Disease (COPD): Yes Hx Lung Cancer: No Hx Pneumonia: No Hx Sleep Apnea: Yes - NEUROLOGICAL Hx Neurological Disorder: Yes HX Cerebrovascular Accident: Yes - HEENT Hx HEENT Problems: Yes Hx Cataracts: Yes - RENAL Hx Chronic Kidney Disease: No - ENDOCRINE/METABOLIC Hx Endocrine Disorders: No Hx Diabetes Mellitus Type 1: No Hx Diabetes Mellitus Type 2: No - HEMATOLOGICAL/ONCOLOGICAL Hx Blood Disorders: Yes Hx AIDS: No Hx Anemia: Yes Hx Human Immunodeficiency Virus (HIV): No Other/Comment: DVT - INTEGUMENTARY Hx Dermatological Problems: No - MUSCULOSKELETAL/RHEUMATOLOGICAL Hx Musculoskeletal Disorders: Yes Hx Falls: No Hx Osteoporosis: Yes Hx Rheumatoid Arthritis: Yes Hx Unsteady Gait: Yes - GASTROINTESTINAL Hx Gastrointestinal Disorders: Yes Hx Diverticulitis: Yes Hx Gall Bladder Disease: Yes Hx Gastritis: Yes Hx Nausea: Yes Hx Vomiting: Yes - GENITOURINARY/GYNECOLOGICAL Hx Genitourinary Disorders: Yes Hx Incontinence: No - PSYCHIATRIC Hx Psychophysiologic Disorder: Yes Hx Anxiety: Yes Hx Bipolar Disorder: No Hx Depression: Yes Hx Emotional Abuse: No Hx Hallucinations: No Hx Panic Symptoms: No Hx Post Traumatic Stress Disorder: No Hx Psychosis: No Hx Physical Abuse: No Hx Schizophrenia: No Hx Sexual Abuse: No Hx Substance Use: No - SURGICAL HISTORY Hx Surgeries: Yes Hx Appendectomy: Yes Hx Cholecystectomy: No Hx Coronary Stent: Yes (Rex pe[facility]) - ANESTHESIA Hx Anesthesia: Yes Hx Anesthesia Reactions: No Hx Malignant Hyperthermia: No Has any member of the family had a problem w/ anesthesia?: No Meds Allergies/Adverse Reactions: Allergies Allergy/AdvReac Type Severity Reaction Status Date / Time No Known Allergies Allergy Verified 09/12/17 11:35 - Medications Medications: Current Medications Albuterol/Ipratropium (Duoneb 3 Mg/0.5 Mg (3 Ml) Ud) 3 ml INH RQ4 [place] Last Admin: 10/04/17 19:33 Dose: 3 ml Albuterol/Ipratropium (Duoneb 3 Mg/0.5 Mg (3 Ml) Ud) 3 ml INH RQ2 PRN PRN Reason: Shortness of Breath Artificial Tears (Artificial Tears) 2 drop OU Q6 PRN PRN Reason: Dry eyes Last Admin: 10/04/17 17:51 Dose: 2 drop Atorvastatin Calcium (Lipitor) 10 mg PO HS [place] Last Admin: 10/03/17 22:19 Dose: 10 mg Fluocinonide (Lidex 0.05% Oint) 1 applic TOP BID [place] Last Admin: 10/04/17 09:10 Dose: 1 applic Folic Acid (Folic Acid) 1 mg PO DAILY [facility] Last Admin: 10/04/17 09:11 Dose: 1 mg Hydroxyzine HCl (Atarax) 10 mg PO TID PRN PRN Reason: Itching / Pruritus Last Admin: 10/04/17 17:51 Dose: 10 mg Piperacillin Sod/Tazobactam (Sod 2.25 gm/ Sodium Chloride) 100 mls @ 100 mls/ hr IVPB Q6 [facility] PRN Reason: Protocol Last Admin: 10/04/17 17:51 Dose: 100 mls/hr Lactulose (Enulose) 10 gm PO DAILY PRN PRN Reason: Constipation Loratadine (Claritin) 10 mg PO DAILY [facility] Methylprednisolone (Solu-Medrol) 40 mg IVP Q12 [facility] Montelukast Sodium (Singulair) 10 mg PO DAILY [facility] Last Admin: 10/04/17 17:51 Dose: 10 mg Nystatin (Nystop Topical Powder) 1 applic TOP BID [facility] Last Admin: 10/04/17 17:51 Dose: 1 applic Ondansetron HCl (Zofran Inj) 4 mg IVP Q4 PRN PRN Reason: Nausea/Vomiting Pantoprazole Sodium (Protonix Ec Tab) 40 mg PO DAILY [facility] Last Admin: 10/04/17 09:11 Dose: 40 mg Physical Exam - Constitutional Appears: No Acute Distress, Chronically Ill - Head Exam Head Exam: NORMAL INSPECTION - Eye Exam Eye Exam: PERRL - ENT Exam ENT Exam: Mucous Membranes Moist - Neck Exam Neck exam: Positive for: Normal Inspection - Respiratory Exam Respiratory Exam: Decreased Breath Sounds (b/l) Additional comments: Rash over anterior chest area - Cardiovascular Exam Cardiovascular Exam: REGULAR RHYTHM - GI/Abdominal Exam GI & Abdominal Exam: Hypoactive Bowel Sounds, Soft - Extremities Exam Extremities exam: Positive for: normal inspection - Back Exam Back exam: NORMAL INSPECTION - Neurological Exam Neurological exam: Alert, CN II-XII Intact Additional comments: Obeys commands, L hemiparesis - Skin Skin Exam: Rash, Warm Results - Vital Signs Recent Vital Signs: Last Vital Signs Temp 97.9 F 10/04/17 16:00 Pulse 83 10/04/17 18:00 Resp 31 H 10/04/17 18:00 BP 137/83 10/04/17 18:00 Pulse Ox 99 10/04/17 18:00 reviewed J.P. - Labs Result Diagrams: 10/05/17 05:25 10/05/17 05:25 Labs: Laboratory Results - last 24 hr 09/29/17 10/03/17 10/04/17 10:34 21:35 04:40 WBC 11.3 H RBC 3.26 L Hgb 8.9 L Hct 29.7 L MCV 91.2 MCH 27.3 MCHC 30.0 L RDW 24.7 H Plt Count 49 L PT INR Sodium Potassium Chloride Carbon Dioxide Anion Gap BUN Creatinine Est GFR ( Amer) Est GFR (Non-Af Amer) POC Glucose (mg/dL) 175 H Random Glucose Calcium Total Bilirubin AST ALT Alkaline Phosphatase Total Protein Albumin Globulin Albumin/Globulin Ratio Smooth Muscle Ab Titer 1:20 H Anti-Smooth Muscle Ab Positive H 10/04/17 10/04/17 10/04/17 04:40 04:40 11:15 WBC RBC Hgb Hct MCV MCH MCHC RDW Plt Count PT 13.8 H INR 1.2 Sodium 142 Potassium 5.5 H Chloride 106 Carbon Dioxide 24 Anion Gap 18 BUN 57 H Creatinine 1.4 H Est GFR ( Amer) 46 Est GFR (Non-Af Amer) 38 POC Glucose (mg/dL) 202 H Random Glucose 174 H Calcium 9.3 Total Bilirubin 1.5 H AST 121 H ALT 274 H Alkaline Phosphatase 190 H Total Protein 7.2 Albumin 3.9 Globulin 3.3 Albumin/Globulin Ratio 1.2 Smooth Muscle Ab Titer Anti-Smooth Muscle Ab 10/04/17 16:27 WBC RBC Hgb Hct MCV MCH MCHC RDW Plt Count PT INR Sodium Potassium Chloride Carbon Dioxide Anion Gap BUN Creatinine Est GFR ( Amer) Est GFR (Non-Af Amer) POC Glucose (mg/dL) 183 H Random Glucose Calcium Total Bilirubin AST ALT Alkaline Phosphatase Total Protein Albumin Globulin Albumin/Globulin Ratio Smooth Muscle Ab Titer Anti-Smooth Muscle Ab reviewed DarrinPNelly - Imaging and Cardiology CT scan - abdomen Status: Report reviewed by me (Antonio) CT scan - pelvis Status: Report reviewed by me (Antonio) Assessment & Plan (1) COPD exacerbation Status: Acute Priority: High - Assessment and Plan (Free Text) Plan: Continue O2 NC 3 L/M, Zosyn, Singulair, Duoneb, Solu_Medrol - Date & Time Date: 10/04/17 Time: 08:00
[2017-10-05] MEDS: Albuterol-Ipratrop 3 mg / 0.5 (3 ml) UD INH SCH ×5 (03:30→22:18)
[2017-10-05 06:31] LABS: ALB/GLOB RATIO 1.2 (1.0-2.1); ALBUMIN 3.7 g/dL (3.5-5.0)
[2017-10-05 07:15] LABS: BASO # 0.2 K/uL (0.0-0.2); BASO % 1.6 % (0.0-2.0); EOS # 0.1 K/uL (0.0-0.7); EOS % 0.5 % (0.0-4.0); LYMPH # 0.6 K/uL (1.0-4.3); LYMPH % 5.8 % (20.0-40.0); MEAN CELL VOLUME 90.5 fl (81.0-99.0); MEAN CORPUSCULAR HEMOGLOBIN 27.2 pg (27.0-31.0); MEAN CORPUSCULAR HGB CONC 30.1 g/dL (33.0-37.0); MEAN PLATELET VOLUME 10.8 fl (7.2-11.7); MONO # 0.8 K/uL (0.0-0.8); MONO % 8.1 % (0.0-10.0); NEUT # 8.7 K/uL (1.8-7.0); NRBC % 13.5 % (0.0-0.0); PLATELET COUNT 48 K/uL (130-400); RBC 3.29 Mil/uL (3.80-5.20); RED CELL DISTRIBUTION WIDTH 24.9 % (11.5-14.5); WHITE BLOOD COUNT 10.4 K/uL (4.8-10.8)
--- NOTE | 2017-10-05 08:11 | CP.PCM.PN ---
Subjective - Date & Time of Evaluation Date of Evaluation: 10/05/17 Time of Evaluation: 08:11 - Subjective Subjective: patient doing well this morning breathing at baseline still feels weak will continue PT until ready for ALVAREZ hd stable nad Objective - Vital Signs/Intake and Output Vital Signs (last 24 hours): Temp Pulse Resp BP Pulse Ox 97.5 F L 78 18 135/82 100 10/05/17 00:30 10/05/17 05:04 10/05/17 00:30 10/05/17 00:30 10/05/17 00:30 - Medications Medications: Current Medications Albuterol/Ipratropium (Duoneb 3 Mg/0.5 Mg (3 Ml) Ud) 3 ml INH RQ4 [place] Last Admin: 10/05/17 07:23 Dose: 3 ml Albuterol/Ipratropium (Duoneb 3 Mg/0.5 Mg (3 Ml) Ud) 3 ml INH RQ2 PRN PRN Reason: Shortness of Breath Artificial Tears (Artificial Tears) 2 drop OU Q6 PRN PRN Reason: Dry eyes Last Admin: 10/04/17 17:51 Dose: 2 drop Atorvastatin Calcium (Lipitor) 10 mg PO HS [place] Last Admin: 10/04/17 21:15 Dose: 10 mg Fluocinonide (Lidex 0.05% Oint) 1 applic TOP BID [facility] Last Admin: 10/04/17 09:10 Dose: 1 applic Folic Acid (Folic Acid) 1 mg PO DAILY [facility] Last Admin: 10/04/17 09:11 Dose: 1 mg Hydroxyzine HCl (Atarax) 10 mg PO TID PRN PRN Reason: Itching / Pruritus Last Admin: 10/04/17 17:51 Dose: 10 mg Piperacillin Sod/Tazobactam (Sod 2.25 gm/ Sodium Chloride) 100 mls @ 100 mls/ hr IVPB Q6 [place] PRN Reason: Protocol Last Admin: 10/05/17 05:29 Dose: 100 mls/hr Lactulose (Enulose) 10 gm PO DAILY PRN PRN Reason: Constipation Loratadine (Claritin) 10 mg PO DAILY [facility] Methylprednisolone (Solu-Medrol) 40 mg IVP Q12 [place] Last Admin: 10/04/17 21:15 Dose: 40 mg Montelukast Sodium (Singulair) 10 mg PO DAILY [facility] Last Admin: 10/04/17 17:51 Dose: 10 mg Nystatin (Nystop Topical Powder) 1 applic TOP BID [place] Last Admin: 10/04/17 17:51 Dose: 1 applic Ondansetron HCl (Zofran Inj) 4 mg IVP Q4 PRN PRN Reason: Nausea/Vomiting Pantoprazole Sodium (Protonix Ec Tab) 40 mg PO DAILY [place] Last Admin: 10/04/17 09:11 Dose: 40 mg - Labs Labs: 10/05/17 05:25 10/05/17 05:25 PT 13.8 Seconds (9.8-13.1) H 10/04/17 04:40 INR 1.2 (0.9-1.2) 10/04/17 04:40 APTT 28.7 Seconds (25.6-37.1) 09/29/17 04:25 - Constitutional Appears: Non-toxic, No Acute Distress - Head Exam Head Exam: ATRAUMATIC, NORMOCEPHALIC - Eye Exam Eye Exam: EOMI, Normal appearance, PERRL - ENT Exam ENT Exam: Mucous Membranes Moist, Normal Oropharynx - Respiratory Exam Respiratory Exam: Wheezes (at baseline), NORMAL BREATHING PATTERN - Cardiovascular Exam Cardiovascular Exam: RRR, +S1, +S2 - GI/Abdominal Exam GI & Abdominal Exam: Soft, Normal Bowel Sounds. absent: Mass, Organomegaly - Extremities Exam Extremities Exam: Normal Capillary Refill. absent: Tenderness - Back Exam Back Exam: absent: CVA tenderness (L), CVA tenderness (R) - Neurological Exam Neurological Exam: Alert, Awake, Oriented x3 - Psychiatric Exam Psychiatric exam: Normal Affect, Normal Mood - Skin Skin Exam: Dry, Warm Assessment and Plan - Assessment and Plan (Free Text) Plan: 62F well known to our service with past medical history of COPD, OLIVIA, severe PAH, SLE, RA, s/p splenectomy , chronic thrombocytopenia, hx CVA, CAD with PCI, hx DVT with IVC filter recently discharged 3 days prior to readmission after being admitted for abdominal pain , patient came back bec of abd pain and vomiting. Patient states she does not have much abdominal pain, however she has had worsening, persistent, moderate nausea associated with nbnb emesis as well as some scant dark stools. She is also very dyspneic and has decreased BS. Patient was found to be in acute on chronic renal failure, and has elevated LFTs. Patient was bradycardic in 45-50 BPM range, with lightheadedness and generalized malaise. She was admitted to ICU for close monitoring . Abd Sono: Contracted gallbladder. No cholelithiasis. CT of the abd :1. Lack of contrast agents limits evaluation. No overt pattern of cholecystitis. Gallbladder appears partially contracted compared to the prior exam when it was more significantly more distended. 2. Mild increase in pelvic ascites. Trace perihepatic ascites extending into right pericolic gutter of uncertain origin. This obscures evaluation of the appendix. 3. Prior splenectomy or congenital absence again evident. MRCP: Suboptimal study due to patient's motion. No evidence of biliary obstruction or choledocholithiasis. Partially distended gallbladder surrounding with pericholecystic fluid and infiltration. No evidence of cholelithiasis. Prior splenectomy. . Small ascites and small bilateral pleural effusions. Patient doing well today, however continues to be weak. Will require more PT prior to discharge to [facility]. Breathing at baseline 1. Abdominal Pain with Acute Liver Failure ? etiology- as per GI - abn LFTS poss due to Ischemic Hepatitis vs. Cardiac - MRCP: distended GB with pericholecystic fluid - Hepatitis panel: negative, IgG: normal - GI consulted, Surgery consulted- per Surgery , no surgical intervention -Pt's abd pain resolved , LFTS trending down - cont IV Zosyn for now 2. Bradycardia prob sec to BB cont to monitor rhythm - d/c Toprol -EKG bradycardia, T wave flattening and inversions low voltage, prolonged QTc -45-50 BPM on admission, HR now normal 3.Acute COPD exacerbation continue IV Solumedrol and duonebs, decrease Solumedrol to 40mg q 8 cont Bipap q hs and 3-4 liters NC q am -Pulm consult - Dr Thomas 4. Dark Stool , H/H stable, unlikely Melena pt has history of multiple GIB- had dark stool at home continue Protonix 40mg q12 Occult blood negative mild coagulopathy 2/2 hepatic insufficiency? hold ASA and Plavix for now GI consulted 5. Hyperkalemia sec to CKD no peaked T waves on EKG received Kayexalate 6. CKD Stage III monitor BMP Crea stable 7. SLE/RA Hold on Plaquenil due to abn LFT - on IV Steroids 8. Coagulopathy ? sec to the Liver Dis monitor no signs of bleeding 9. Thrombocytopenia , chronic as per pt shehad low platelets and had Splenectomy due to RA no bleeding- will monitor GI following pt 10 Rash on Chest poss Contact Dermatitis cont Lidex oitment - start Claritin, Singulair DVT proph - no anticoag due to coagulopathy and thrombocytopenia
[2017-10-05] MEDS: MethylPREDNISolone 40 mg Vial IVP SCH (08:26)
[2017-10-05] MEDS: Pantoprazole 40 mg EC Tab PO SCH (08:27)
[2017-10-05 09:11] LABS: LYMPHOCYTE 5 % (20-50); NEUTROPHIL 93 % (42-75); PLATELET ESTIMATE MARKEDLY DECREASED (NORMAL); TOTAL CELLS COUNTED 100
[2017-10-05 09:12] LABS: ANISOCYTOSIS SLIGHT; MONOCYTE 2 % (0-10); POIKILOCYTOSIS SLIGHT
--- NOTE | 2017-10-05 09:12 | CP.PCM.PN ---
Subjective - Date & Time of Evaluation Date of Evaluation: 10/05/17 Time of Evaluation: 12:45 - Subjective Subjective: no SOB , no cough , on O2 NC Objective - Vital Signs/Intake and Output Vital Signs (last 24 hours): Temp Pulse Resp BP Pulse Ox 97.9 F 77 20 128/71 98 10/05/17 08:25 10/05/17 08:25 10/05/17 08:25 10/05/17 08:25 10/05/17 08:25 - Medications Medications: Current Medications Albuterol/Ipratropium (Duoneb 3 Mg/0.5 Mg (3 Ml) Ud) 3 ml INH RQ4 [place] Last Admin: 10/05/17 07:23 Dose: 3 ml Albuterol/Ipratropium (Duoneb 3 Mg/0.5 Mg (3 Ml) Ud) 3 ml INH RQ2 PRN PRN Reason: Shortness of Breath Artificial Tears (Artificial Tears) 2 drop OU Q6 PRN PRN Reason: Dry eyes Last Admin: 10/04/17 17:51 Dose: 2 drop Atorvastatin Calcium (Lipitor) 10 mg PO HS [facility] Last Admin: 10/04/17 21:15 Dose: 10 mg Fluocinonide (Lidex 0.05% Oint) 1 applic TOP BID [facility] Last Admin: 10/05/17 08:27 Dose: 1 applic Folic Acid (Folic Acid) 1 mg PO DAILY [facility] Last Admin: 10/05/17 08:27 Dose: 1 mg Hydroxyzine HCl (Atarax) 10 mg PO TID PRN PRN Reason: Itching / Pruritus Last Admin: 10/04/17 17:51 Dose: 10 mg Piperacillin Sod/Tazobactam (Sod 2.25 gm/ Sodium Chloride) 100 mls @ 100 mls/ hr IVPB Q6 [place] PRN Reason: Protocol Last Admin: 10/05/17 09:09 Dose: 100 mls/hr Lactulose (Enulose) 10 gm PO DAILY PRN PRN Reason: Constipation Loratadine (Claritin) 10 mg PO DAILY [facility] Last Admin: 10/05/17 08:27 Dose: 10 mg Methylprednisolone (Solu-Medrol) 40 mg IVP Q12 [place] Last Admin: 10/05/17 08:26 Dose: 40 mg Montelukast Sodium (Singulair) 10 mg PO DAILY [facility] Last Admin: 10/05/17 08:27 Dose: 10 mg Nystatin (Nystop Topical Powder) 1 applic TOP BID [facility] Last Admin: 10/05/17 08:28 Dose: 1 applic Ondansetron HCl (Zofran Inj) 4 mg IVP Q4 PRN PRN Reason: Nausea/Vomiting Pantoprazole Sodium (Protonix Ec Tab) 40 mg PO DAILY [facility] Last Admin: 10/05/17 08:27 Dose: 40 mg - Labs Labs: 10/05/17 05:25 10/05/17 05:25 PT 13.8 Seconds (9.8-13.1) H 10/04/17 04:40 INR 1.2 (0.9-1.2) 10/04/17 04:40 APTT 28.7 Seconds (25.6-37.1) 09/29/17 04:25 - Constitutional Appears: Chronically Ill - Head Exam Head Exam: NORMAL INSPECTION - Eye Exam Eye Exam: PERRL - ENT Exam ENT Exam: Normal Exam - Neck Exam Neck Exam: Normal Inspection - Respiratory Exam Respiratory Exam: Decreased Breath Sounds - Cardiovascular Exam Cardiovascular Exam: REGULAR RHYTHM - GI/Abdominal Exam GI & Abdominal Exam: Soft, Normal Bowel Sounds - Extremities Exam Extremities Exam: Normal Inspection - Back Exam Back Exam: NORMAL INSPECTION - Neurological Exam Neurological Exam: Alert, Oriented x3 Additional comments: generalized weakness - Psychiatric Exam Psychiatric exam: Anxious - Skin Skin Exam: Rash, Warm Assessment and Plan (1) COPD exacerbation Status: Acute - Assessment and Plan (Free Text) Plan: continue DuoNeb, Zosyn, SoluMedrol, O2
[2017-10-05 09:13] LABS: HYPOCHROMIC SLIGHT; LARGE PLATELETS PRESENT; MICROCYTOSIS SLIGHT; SPHEROCYTES MODERATE
[2017-10-05 09:14] LABS: NUCLEATED RED BLOOD CELL 7 % (0-0)
[2017-10-05] MEDS: Artificial Tears Opht Soln OU PRN (13:14)
--- NOTE | 2017-10-05 14:24 | CP.PCM.PN ---
Subjective - Subjective Subjective: no AD , no SOB , no cough , on NC 2 Lm Objective - Vital Signs/Intake and Output Vital Signs (last 24 hours): Temp Pulse Resp BP Pulse Ox 97.9 F 69 20 128/71 99 10/05/17 08:25 10/05/17 10:19 10/05/17 08:25 10/05/17 08:25 10/05/17 10:19 - Medications Medications: Current Medications Albuterol/Ipratropium (Duoneb 3 Mg/0.5 Mg (3 Ml) Ud) 3 ml INH RQ4 [place] Last Admin: 10/05/17 07:23 Dose: 3 ml Albuterol/Ipratropium (Duoneb 3 Mg/0.5 Mg (3 Ml) Ud) 3 ml INH RQ2 PRN PRN Reason: Shortness of Breath Artificial Tears (Artificial Tears) 2 drop OU Q6 PRN PRN Reason: Dry eyes Last Admin: 10/05/17 13:14 Dose: 2 drop Atorvastatin Calcium (Lipitor) 10 mg PO HS [facility] Last Admin: 10/04/17 21:15 Dose: 10 mg Fluocinonide (Lidex 0.05% Oint) 1 applic TOP BID [facility] Last Admin: 10/05/17 08:27 Dose: 1 applic Folic Acid (Folic Acid) 1 mg PO DAILY [facility] Last Admin: 10/05/17 08:27 Dose: 1 mg Hydroxyzine HCl (Atarax) 10 mg PO TID PRN PRN Reason: Itching / Pruritus Last Admin: 10/04/17 17:51 Dose: 10 mg Piperacillin Sod/Tazobactam (Sod 2.25 gm/ Sodium Chloride) 100 mls @ 100 mls/ hr IVPB Q6 [place] PRN Reason: Protocol Last Admin: 10/05/17 09:09 Dose: 100 mls/hr Lactulose (Enulose) 10 gm PO DAILY PRN PRN Reason: Constipation Loratadine (Claritin) 10 mg PO DAILY [facility] Last Admin: 10/05/17 08:27 Dose: 10 mg Methylprednisolone (Solu-Medrol) 40 mg IVP Q12 [facility] Last Admin: 10/05/17 08:26 Dose: 40 mg Montelukast Sodium (Singulair) 10 mg PO DAILY [facility] Last Admin: 10/05/17 08:27 Dose: 10 mg Nystatin (Nystop Topical Powder) 1 applic TOP BID [facility] Last Admin: 10/05/17 08:28 Dose: 1 applic Ondansetron HCl (Zofran Inj) 4 mg IVP Q4 PRN PRN Reason: Nausea/Vomiting Pantoprazole Sodium (Protonix Ec Tab) 40 mg PO DAILY [facility] Last Admin: 10/05/17 08:27 Dose: 40 mg - Labs Labs: 10/05/17 05:25 10/05/17 05:25 PT 13.8 Seconds (9.8-13.1) H 10/04/17 04:40 INR 1.2 (0.9-1.2) 10/04/17 04:40 APTT 28.7 Seconds (25.6-37.1) 09/29/17 04:25 - Constitutional Appears: Chronically Ill - Head Exam Head Exam: NORMAL INSPECTION - Eye Exam Eye Exam: PERRL - ENT Exam ENT Exam: Normal Exam - Neck Exam Neck Exam: Normal Inspection - Respiratory Exam Respiratory Exam: Decreased Breath Sounds (at bases) - Cardiovascular Exam Cardiovascular Exam: REGULAR RHYTHM - GI/Abdominal Exam GI & Abdominal Exam: Soft, Normal Bowel Sounds - Back Exam Back Exam: NORMAL INSPECTION - Neurological Exam Neurological Exam: Alert, Oriented x3 Additional comments: generalized weakness - Psychiatric Exam Psychiatric exam: Anxious - Skin Skin Exam: Rash, Warm Assessment and Plan (1) COPD exacerbation Status: Acute - Assessment and Plan (Free Text) Plan: continue DuoNeb,Singulair , O2 NC, taper Solu Medrol
[2017-10-05] MEDS ORDERED: MethylPREDNISolone 40 mg Vial IVP SCH (21:00)
[2017-10-06] MEDS: Albuterol-Ipratrop 3 mg / 0.5 (3 ml) UD INH SCH ×6 (04:45→23:52)
--- NOTE | 2017-10-06 07:21 | CP.PCM.PN ---
Subjective - Date & Time of Evaluation Date of Evaluation: 10/06/17 Time of Evaluation: 07:20 - Subjective Subjective: pt doing well this morning discussed participating in PT, patient is motivated. hd stable no acute distress Objective - Vital Signs/Intake and Output Vital Signs (last 24 hours): Temp Pulse Resp BP Pulse Ox 97.4 F L 80 18 135/75 97 10/06/17 01:00 10/06/17 04:47 10/06/17 01:00 10/06/17 01:00 10/06/17 01:00 - Medications Medications: Current Medications Albuterol/Ipratropium (Duoneb 3 Mg/0.5 Mg (3 Ml) Ud) 3 ml INH RQ4 [place] Last Admin: 10/06/17 04:45 Dose: 3 ml Albuterol/Ipratropium (Duoneb 3 Mg/0.5 Mg (3 Ml) Ud) 3 ml INH RQ2 PRN PRN Reason: Shortness of Breath Artificial Tears (Artificial Tears) 2 drop OU Q6 PRN PRN Reason: Dry eyes Last Admin: 10/05/17 13:14 Dose: 2 drop Atorvastatin Calcium (Lipitor) 10 mg PO HS [facility] Last Admin: 10/05/17 21:19 Dose: 10 mg Fluocinonide (Lidex 0.05% Oint) 1 applic TOP BID [facility] Last Admin: 10/05/17 16:28 Dose: 1 applic Folic Acid (Folic Acid) 1 mg PO DAILY [facility] Last Admin: 10/05/17 08:27 Dose: 1 mg Hydroxyzine HCl (Atarax) 10 mg PO TID PRN PRN Reason: Itching / Pruritus Last Admin: 10/04/17 17:51 Dose: 10 mg Piperacillin Sod/Tazobactam (Sod 2.25 gm/ Sodium Chloride) 100 mls @ 100 mls/ hr IVPB Q6 [place] PRN Reason: Protocol Last Admin: 10/06/17 03:32 Dose: 100 mls/hr Lactulose (Enulose) 10 gm PO DAILY PRN PRN Reason: Constipation Loratadine (Claritin) 10 mg PO DAILY [facility] Last Admin: 10/05/17 08:27 Dose: 10 mg Methylprednisolone (Solu-Medrol) 30 mg IVP Q12H [place] Montelukast Sodium (Singulair) 10 mg PO DAILY [facility] Last Admin: 10/05/17 08:27 Dose: 10 mg Nystatin (Nystop Topical Powder) 1 applic TOP BID [facility] Last Admin: 10/05/17 16:28 Dose: 1 applic Ondansetron HCl (Zofran Inj) 4 mg IVP Q4 PRN PRN Reason: Nausea/Vomiting Pantoprazole Sodium (Protonix Ec Tab) 40 mg PO DAILY [facility] Last Admin: 10/05/17 08:27 Dose: 40 mg - Labs Labs: 10/05/17 05:25 10/05/17 05:25 PT 13.8 Seconds (9.8-13.1) H 10/04/17 04:40 INR 1.2 (0.9-1.2) 10/04/17 04:40 APTT 28.7 Seconds (25.6-37.1) 09/29/17 04:25 - Constitutional Appears: Non-toxic, No Acute Distress - Head Exam Head Exam: ATRAUMATIC, NORMOCEPHALIC - Eye Exam Eye Exam: EOMI, Normal appearance Pupil Exam: NORMAL ACCOMODATION - ENT Exam ENT Exam: Mucous Membranes Moist, Normal Exam - Respiratory Exam Respiratory Exam: Wheezes (mild at baseline), NORMAL BREATHING PATTERN - Cardiovascular Exam Cardiovascular Exam: RRR, +S1, +S2 - GI/Abdominal Exam GI & Abdominal Exam: Soft, Normal Bowel Sounds - Extremities Exam Extremities Exam: Normal Capillary Refill. absent: Calf Tenderness - Back Exam Back Exam: absent: CVA tenderness (L), CVA tenderness (R) - Neurological Exam Neurological Exam: Alert, Awake - Psychiatric Exam Psychiatric exam: Normal Affect, Normal Mood - Skin Skin Exam: Dry, Intact Assessment and Plan - Assessment and Plan (Free Text) Plan: 62F well known to our service with past medical history of COPD, OLIVIA, severe PAH, SLE, RA, s/p splenectomy , chronic thrombocytopenia, hx CVA, CAD with PCI, hx DVT with IVC filter recently discharged 3 days prior to readmission after being admitted for abdominal pain , patient came back bec of abd pain and vomiting. Patient states she does not have much abdominal pain, however she has had worsening, persistent, moderate nausea associated with nbnb emesis as well as some scant dark stools. She is also very dyspneic and has decreased BS. Patient was found to be in acute on chronic renal failure, and has elevated LFTs. Patient was bradycardic in 45-50 BPM range, with lightheadedness and generalized malaise. She was admitted to ICU for close monitoring . Abd Sono: Contracted gallbladder. No cholelithiasis. CT of the abd :1. Lack of contrast agents limits evaluation. No overt pattern of cholecystitis. Gallbladder appears partially contracted compared to the prior exam when it was more significantly more distended. 2. Mild increase in pelvic ascites. Trace perihepatic ascites extending into right pericolic gutter of uncertain origin. This obscures evaluation of the appendix. 3. Prior splenectomy or congenital absence again evident. MRCP: Suboptimal study due to patient's motion. No evidence of biliary obstruction or choledocholithiasis. Partially distended gallbladder surrounding with pericholecystic fluid and infiltration. No evidence of cholelithiasis. Prior splenectomy. . Small ascites and small bilateral pleural effusions. Today patient doing well no acute distress motivatd to participate in PT 1. Abdominal Pain with Acute Liver Failure ? etiology- as per GI - abn LFTS poss due to Ischemic Hepatitis vs. Cardiac - MRCP: distended GB with pericholecystic fluid - Hepatitis panel: negative, IgG: normal - GI consulted, Surgery consulted- per Surgery , no surgical intervention -Pt's abd pain resolved , LFTS trending down - cont IV Zosyn for 5 more days 2. Bradycardia prob sec to BB cont to monitor rhythm - d/c Toprol -EKG bradycardia, T wave flattening and inversions low voltage, prolonged QTc -45-50 BPM on admission, HR now normal 3.Acute COPD exacerbation continue IV Solumedrol and duonebs, decrease Solumedrol to 40mg q 8 cont Bipap q hs and 3-4 liters NC q am -Pulm consult - Dr Thomas 4. Dark Stool , H/H stable, unlikely Melena pt has history of multiple GIB- had dark stool at home continue Protonix 40mg q12 Occult blood negative mild coagulopathy 2/2 hepatic insufficiency? hold ASA and Plavix for now GI consulted 5. Hyperkalemia sec to CKD no peaked T waves on EKG received Kayexalate 6. CKD Stage III monitor BMP Crea stable 7. SLE/RA Hold on Plaquenil due to abn LFT - on IV Steroids 8. Coagulopathy ? sec to the Liver Dis monitor no signs of bleeding 9. Thrombocytopenia , chronic as per pt shehad low platelets and had Splenectomy due to RA no bleeding- will monitor GI following pt 10 Rash on Chest poss Contact Dermatitis cont Lidex oitment - start Claritin, Singulair DVT proph - no anticoag due to coagulopathy and thrombocytopenia
[2017-10-06] MEDS: Pantoprazole 40 mg EC Tab PO SCH (08:43)
[2017-10-06] MEDS ORDERED: methylPREDNISolone 30 MG in Sodium Chloride 0.9% 50 ML IVP SCH (12:00)
[2017-10-06] MEDS: MethylPREDNISolone 40 mg Vial IVP SCH (12:40)
--- NOTE | 2017-10-06 14:06 | CP.PCM.PN ---
Subjective - Date & Time of Evaluation Date of Evaluation: 10/06/17 Time of Evaluation: 12:20 - Subjective Subjective: F/U COPD Exacerbation. no SOB at rest on NC 3L/m, REBOLLEDO with O2 NC noticed by nurses , L/E weakness Objective - Vital Signs/Intake and Output Vital Signs (last 24 hours): Temp Pulse Resp BP Pulse Ox 97.5 F L 78 20 133/80 97 10/06/17 08:54 10/06/17 08:54 10/06/17 08:54 10/06/17 08:54 10/06/17 08:54 - Medications Medications: Current Medications Albuterol/Ipratropium (Duoneb 3 Mg/0.5 Mg (3 Ml) Ud) 3 ml INH RQ4 [place] Last Admin: 10/06/17 11:49 Dose: 3 ml Albuterol/Ipratropium (Duoneb 3 Mg/0.5 Mg (3 Ml) Ud) 3 ml INH RQ2 PRN PRN Reason: Shortness of Breath Artificial Tears (Artificial Tears) 2 drop OU Q6 PRN PRN Reason: Dry eyes Last Admin: 10/05/17 13:14 Dose: 2 drop Atorvastatin Calcium (Lipitor) 10 mg PO HS [facility] Last Admin: 10/05/17 21:19 Dose: 10 mg Fluocinonide (Lidex 0.05% Oint) 1 applic TOP BID [facility] Last Admin: 10/06/17 08:44 Dose: 1 applic Folic Acid (Folic Acid) 1 mg PO DAILY [facility] Last Admin: 10/06/17 08:42 Dose: 1 mg Hydroxyzine HCl (Atarax) 10 mg PO TID PRN PRN Reason: Itching / Pruritus Last Admin: 10/04/17 17:51 Dose: 10 mg Piperacillin Sod/Tazobactam (Sod 2.25 gm/ Sodium Chloride) 100 mls @ 100 mls/ hr IVPB Q6 [place] PRN Reason: Protocol Last Admin: 10/06/17 09:10 Dose: 100 mls/hr Lactulose (Enulose) 10 gm PO DAILY PRN PRN Reason: Constipation Loratadine (Claritin) 10 mg PO DAILY [facility] Last Admin: 10/06/17 08:43 Dose: 10 mg Methylprednisolone (Solu-Medrol) 30 mg IVP Q12H [facility] Last Admin: 10/06/17 12:40 Dose: 30 mg Montelukast Sodium (Singulair) 10 mg PO DAILY [facility] Last Admin: 10/06/17 08:43 Dose: 10 mg Nystatin (Nystop Topical Powder) 1 applic TOP BID [facility] Last Admin: 10/06/17 08:43 Dose: 1 applic Ondansetron HCl (Zofran Inj) 4 mg IVP Q4 PRN PRN Reason: Nausea/Vomiting Pantoprazole Sodium (Protonix Ec Tab) 40 mg PO DAILY [facility] Last Admin: 10/06/17 08:43 Dose: 40 mg - Labs Labs: 10/05/17 05:25 10/05/17 05:25 PT 13.8 Seconds (9.8-13.1) H 10/04/17 04:40 INR 1.2 (0.9-1.2) 10/04/17 04:40 APTT 28.7 Seconds (25.6-37.1) 09/29/17 04:25 - Constitutional Appears: Chronically Ill - Head Exam Head Exam: NORMAL INSPECTION - Eye Exam Eye Exam: PERRL - ENT Exam ENT Exam: Normal Exam - Neck Exam Neck Exam: Normal Inspection - Respiratory Exam Respiratory Exam: Decreased Breath Sounds (at bases) - Cardiovascular Exam Cardiovascular Exam: REGULAR RHYTHM - GI/Abdominal Exam GI & Abdominal Exam: Soft, Normal Bowel Sounds - Extremities Exam Additional comments: Edema 1(+) , mild tenderness R L leg - Back Exam Back Exam: NORMAL INSPECTION - Neurological Exam Neurological Exam: Alert, Oriented x3 Additional comments: Generalized weakness - Psychiatric Exam Psychiatric exam: Anxious - Skin Skin Exam: Warm Assessment and Plan (1) COPD exacerbation Status: Acute - Assessment and Plan (Free Text) Plan: COPD exacerbation impoved, Patient to be transferred to [facility] on Sunday, continue DuoNeb, Zosyn, taper steroids
[2017-10-06] MEDS: Artificial Tears Opht Soln OU PRN (14:32)
[2017-10-07] MEDS: MethylPREDNISolone 40 mg Vial IVP SCH ×2 (00:58→12:13)
[2017-10-07] MEDS: Albuterol-Ipratrop 3 mg / 0.5 (3 ml) UD INH SCH ×6 (05:10→23:01)
[2017-10-07 07:28] LABS: CALCIUM 8.8 mg/dL (8.4-10.2)
[2017-10-07 07:29] LABS: MEAN CELL VOLUME 88.9 fl (81.0-99.0); MEAN CORPUSCULAR HEMOGLOBIN 27.2 pg (27.0-31.0); MEAN CORPUSCULAR HGB CONC 30.6 g/dL (33.0-37.0); RBC 3.31 Mil/uL (3.80-5.20); RED CELL DISTRIBUTION WIDTH 24.3 % (11.5-14.5); WHITE BLOOD COUNT 12.9 K/uL (4.8-10.8)
[2017-10-07] MEDS: Pantoprazole 40 mg EC Tab PO SCH (08:49)
[2017-10-07] MEDS: Artificial Tears Opht Soln OU PRN ×2 (08:52→16:38)
--- NOTE | 2017-10-07 11:50 | CP.PCM.PN ---
Subjective - Date & Time of Evaluation Date of Evaluation: 10/07/17 Time of Evaluation: 11:49 - Subjective Subjective: patient motivated to participate in PT, anxious to be discharged to [facility] doing well, at baseline hd stable nad no complaints, denies cp sob calf tenderness Objective - Vital Signs/Intake and Output Vital Signs (last 24 hours): Temp Pulse Resp BP Pulse Ox 97.3 F L 77 20 126/77 100 10/07/17 08:12 10/07/17 08:12 10/07/17 08:12 10/07/17 08:12 10/07/17 08:12 Vitals Reviewed GEN: WDWN, alert, cooperative HEENT: NCAT, PERRL, EOMI HEART: RRR, +S1S2, NO MRG LUNG: baseline mild wheezing no distress ABD: soft, NT, ND, No HSM, No masses EXT: normal pedal pulses, normal capillary refill NEURO: awake, alert, no focal deficits SKIN: warm, dry PSYCH: normal mood, normal affect - Medications Medications: Current Medications Albuterol/Ipratropium (Duoneb 3 Mg/0.5 Mg (3 Ml) Ud) 3 ml INH RQ4 [place] Last Admin: 10/07/17 11:07 Dose: 3 ml Albuterol/Ipratropium (Duoneb 3 Mg/0.5 Mg (3 Ml) Ud) 3 ml INH RQ2 PRN PRN Reason: Shortness of Breath Artificial Tears (Artificial Tears) 2 drop OU Q6 PRN PRN Reason: Dry eyes Last Admin: 10/07/17 08:52 Dose: 2 drop Atorvastatin Calcium (Lipitor) 10 mg PO HS [facility] Last Admin: 10/06/17 21:06 Dose: 10 mg Fluocinonide (Lidex 0.05% Oint) 1 applic TOP BID [place] Last Admin: 10/07/17 08:49 Dose: 1 applic Folic Acid (Folic Acid) 1 mg PO DAILY [facility] Last Admin: 10/07/17 08:49 Dose: 1 mg Hydroxyzine HCl (Atarax) 10 mg PO TID PRN PRN Reason: Itching / Pruritus Last Admin: 10/04/17 17:51 Dose: 10 mg Piperacillin Sod/Tazobactam (Sod 2.25 gm/ Sodium Chloride) 100 mls @ 100 mls/ hr IVPB Q6 [place] PRN Reason: Protocol Last Admin: 10/07/17 10:21 Dose: 100 mls/hr Lactulose (Enulose) 10 gm PO DAILY PRN PRN Reason: Constipation Loratadine (Claritin) 10 mg PO DAILY [facility] Last Admin: 10/07/17 08:50 Dose: 10 mg Methylprednisolone (Solu-Medrol) 30 mg IVP Q12H [facility] Last Admin: 10/07/17 00:58 Dose: 30 mg Montelukast Sodium (Singulair) 10 mg PO DAILY [facility] Last Admin: 10/07/17 08:49 Dose: 10 mg Nystatin (Nystop Topical Powder) 1 applic TOP BID [facility] Last Admin: 10/07/17 08:48 Dose: 1 applic Ondansetron HCl (Zofran Inj) 4 mg IVP Q4 PRN PRN Reason: Nausea/Vomiting Pantoprazole Sodium (Protonix Ec Tab) 40 mg PO DAILY [facility] Last Admin: 10/07/17 08:49 Dose: 40 mg - Labs Labs: 10/07/17 06:45 10/07/17 06:45 PT 13.8 Seconds (9.8-13.1) H 10/04/17 04:40 INR 1.2 (0.9-1.2) 10/04/17 04:40 APTT 28.7 Seconds (25.6-37.1) 09/29/17 04:25 Assessment and Plan - Assessment and Plan (Free Text) Plan: 62F well known to our service with past medical history of COPD, OLIVIA, severe PAH, SLE, RA, s/p splenectomy , chronic thrombocytopenia, hx CVA, CAD with PCI, hx DVT with IVC filter recently discharged 3 days prior to readmission after being admitted for abdominal pain , patient came back bec of abd pain and vomiting. Patient states she does not have much abdominal pain, however she has had worsening, persistent, moderate nausea associated with nbnb emesis as well as some scant dark stools. She is also very dyspneic and has decreased BS. Patient was found to be in acute on chronic renal failure, and has elevated LFTs. Patient was bradycardic in 45-50 BPM range, with lightheadedness and generalized malaise. She was admitted to ICU for close monitoring . Abd Sono: Contracted gallbladder. No cholelithiasis. CT of the abd :1. Lack of contrast agents limits evaluation. No overt pattern of cholecystitis. Gallbladder appears partially contracted compared to the prior exam when it was more significantly more distended. 2. Mild increase in pelvic ascites. Trace perihepatic ascites extending into right pericolic gutter of uncertain origin. This obscures evaluation of the appendix. 3. Prior splenectomy or congenital absence again evident. MRCP: Suboptimal study due to patient's motion. No evidence of biliary obstruction or choledocholithiasis. Partially distended gallbladder surrounding with pericholecystic fluid and infiltration. No evidence of cholelithiasis. Prior splenectomy. . Small ascites and small bilateral pleural effusions. Today patient doing well no acute distress motivatd to participate in PT no new chnages today 1. Abdominal Pain with Acute Liver Failure ? etiology- as per GI - abn LFTS poss due to Ischemic Hepatitis vs. Cardiac - MRCP: distended GB with pericholecystic fluid - Hepatitis panel: negative, IgG: normal - GI consulted, Surgery consulted- per Surgery , no surgical intervention -Pt's abd pain resolved , LFTS trending down - cont IV Zosyn for 5 more days 2. Bradycardia prob sec to BB cont to monitor rhythm - d/c Toprol -EKG bradycardia, T wave flattening and inversions low voltage, prolonged QTc -45-50 BPM on admission, HR now normal 3.Acute COPD exacerbation continue IV Solumedrol and duonebs, decrease Solumedrol to 40mg q 8 cont Bipap q hs and 3-4 liters NC q am -Pulm consult - Dr Thomas 4. Dark Stool , H/H stable, unlikely Melena pt has history of multiple GIB- had dark stool at home continue Protonix 40mg q12 Occult blood negative mild coagulopathy 2/2 hepatic insufficiency? hold ASA and Plavix for now GI consulted 5. Hyperkalemia sec to CKD no peaked T waves on EKG received Kayexalate 6. CKD Stage III monitor BMP Crea stable 7. SLE/RA Hold on Plaquenil due to abn LFT - on IV Steroids 8. Coagulopathy ? sec to the Liver Dis monitor no signs of bleeding 9. Thrombocytopenia , chronic as per pt shehad low platelets and had Splenectomy due to RA no bleeding- will monitor GI following pt 10 Rash on Chest poss Contact Dermatitis cont Lidex oitment - start Claritin, Singulair DVT proph - no anticoag due to coagulopathy and thrombocytopenia
[2017-10-08] MEDS: MethylPREDNISolone 40 mg Vial IVP SCH ×2 (00:29→12:41)
[2017-10-08] MEDS: Albuterol-Ipratrop 3 mg / 0.5 (3 ml) UD INH SCH ×5 (05:00→19:01)
--- NOTE | 2017-10-08 08:46 | CP.PCM.PN ---
Subjective - Date & Time of Evaluation Date of Evaluation: 10/07/17 Time of Evaluation: 12:50 - Subjective Subjective: THIS NOTE IS FOR 10-07-17 no SOB at rest on O2 NC, REBOLLEDO, weakness R L L/E , pain R L calf Objective - Vital Signs/Intake and Output Vital Signs (last 24 hours): Temp Pulse Resp BP Pulse Ox 97.8 F 75 19 139/74 98 10/08/17 00:25 10/08/17 04:59 10/08/17 00:25 10/08/17 00:25 10/08/17 00:25 - Medications Medications: Current Medications Albuterol/Ipratropium (Duoneb 3 Mg/0.5 Mg (3 Ml) Ud) 3 ml INH RQ4 [place] Last Admin: 10/08/17 07:12 Dose: 3 ml Albuterol/Ipratropium (Duoneb 3 Mg/0.5 Mg (3 Ml) Ud) 3 ml INH RQ2 PRN PRN Reason: Shortness of Breath Artificial Tears (Artificial Tears) 2 drop OU Q6 PRN PRN Reason: Dry eyes Last Admin: 10/07/17 16:38 Dose: 2 drop Atorvastatin Calcium (Lipitor) 10 mg PO HS [facility] Last Admin: 10/07/17 21:25 Dose: 10 mg Fluocinonide (Lidex 0.05% Oint) 1 applic TOP BID [facility] Last Admin: 10/07/17 16:35 Dose: 1 applic Folic Acid (Folic Acid) 1 mg PO DAILY [facility] Last Admin: 10/07/17 08:49 Dose: 1 mg Hydroxyzine HCl (Atarax) 10 mg PO TID PRN PRN Reason: Itching / Pruritus Last Admin: 10/04/17 17:51 Dose: 10 mg Piperacillin Sod/Tazobactam (Sod 2.25 gm/ Sodium Chloride) 100 mls @ 100 mls/ hr IVPB Q6 [place] PRN Reason: Protocol Last Admin: 10/08/17 03:08 Dose: 100 mls/hr Lactulose (Enulose) 10 gm PO DAILY PRN PRN Reason: Constipation Loratadine (Claritin) 10 mg PO DAILY [facility] Last Admin: 10/07/17 08:50 Dose: 10 mg Methylprednisolone (Solu-Medrol) 30 mg IVP Q12H [facility] Last Admin: 10/08/17 00:29 Dose: 30 mg Montelukast Sodium (Singulair) 10 mg PO DAILY [facility] Last Admin: 10/07/17 08:49 Dose: 10 mg Nystatin (Nystop Topical Powder) 1 applic TOP BID [facility] Last Admin: 10/07/17 16:35 Dose: 1 applic Ondansetron HCl (Zofran Inj) 4 mg IVP Q4 PRN PRN Reason: Nausea/Vomiting Pantoprazole Sodium (Protonix Ec Tab) 40 mg PO DAILY [facility] Last Admin: 10/07/17 08:49 Dose: 40 mg - Labs Labs: 10/07/17 06:45 10/07/17 06:45 PT 13.8 Seconds (9.8-13.1) H 10/04/17 04:40 INR 1.2 (0.9-1.2) 10/04/17 04:40 APTT 28.7 Seconds (25.6-37.1) 09/29/17 04:25 - Constitutional Appears: Chronically Ill - Head Exam Head Exam: NORMAL INSPECTION - Eye Exam Eye Exam: PERRL - ENT Exam ENT Exam: Normal Exam - Neck Exam Neck Exam: Normal Inspection - Respiratory Exam Respiratory Exam: Decreased Breath Sounds (at bases) - Cardiovascular Exam Cardiovascular Exam: REGULAR RHYTHM - GI/Abdominal Exam GI & Abdominal Exam: Soft, Normal Bowel Sounds - Extremities Exam Additional comments: trace edema, tenderness R L calf - Back Exam Back Exam: NORMAL INSPECTION - Neurological Exam Neurological Exam: Alert, Oriented x3 Additional comments: generalizes weakness - Skin Skin Exam: Warm Assessment and Plan (1) COPD exacerbation Status: Acute - Assessment and Plan (Free Text) Plan: continue DuoNeb, Solu Medrol , ALVAREZ in AM
[2017-10-08] MEDS: Pantoprazole 40 mg EC Tab PO SCH (08:50)
[2017-10-08] MEDS: Artificial Tears Opht Soln OU PRN (08:54)
[2017-10-08 08:57] VITALS: PULSE 72
--- NOTE | 2017-10-08 15:39 | CP.PCM.DIS ---
Provider - Provider Date of Admission: 09/28/17 13:01 Attending physician: Raquel Salas DO Time Spent in preparation of Discharge (in minutes): 45 Diagnosis - Discharge Diagnosis (1) Abdominal pain Status: Acute Priority: High (2) COPD exacerbation Status: Acute Priority: High (3) Weakness generalized Status: Chronic Priority: High Hospital Course - Lab Results Lab Results: Micro Results 10/04/17 08:09 Naris MRSA Culture (Admit) - Final MRSA NOT DETECTED 09/28/17 13:52 Blood-Venous Blood Culture - Final NO GROWTH AFTER 5 DAYS 09/28/17 13:52 Blood-Venous Gram Stain - Final TEST NOT PERFORMED 09/28/17 13:05 Blood-Venous Blood Culture - Final NO GROWTH AFTER 5 DAYS 09/28/17 13:05 Blood-Venous Gram Stain - Final TEST NOT PERFORMED 09/28/17 17:00 Nose MRSA Culture (Admit) - Final MRSA NOT DETECTED Most Recent Lab Values WBC 12.9 K/uL (4.8-10.8) H 10/07/17 06:45 RBC 3.31 Mil/uL (3.80-5.20) L 10/07/17 06:45 Hgb 9.0 g/dL (12.0-16.0) L 10/07/17 06:45 Hct 29.4 % (34.0-47.0) L 10/07/17 06:45 MCV 88.9 fl (81.0-99.0) 10/07/17 06:45 MCH 27.2 pg (27.0-31.0) 10/07/17 06:45 MCHC 30.6 g/dL (33.0-37.0) L 10/07/17 06:45 RDW 24.3 % (11.5-14.5) H 10/07/17 06:45 Plt Count 55 K/uL (130-400) L 10/07/17 06:45 MPV 10.8 fl (7.2-11.7) 10/05/17 05:25 Neut % (Auto) 84.0 % (50.0-75.0) H 10/05/17 05:25 Lymph % (Auto) 5.8 % (20.0-40.0) L 10/05/17 05:25 [place] % (Auto) 8.1 % (0.0-10.0) 10/05/17 05:25 Eos % (Auto) 0.5 % (0.0-4.0) 10/05/17 05:25 Baso % (Auto) 1.6 % (0.0-2.0) 10/05/17 05:25 Neut # (Auto) 8.7 K/uL (1.8-7.0) H 10/05/17 05:25 Lymph # (Auto) 0.6 K/uL (1.0-4.3) L 10/05/17 05:25 [place] # (Auto) 0.8 K/uL (0.0-0.8) 10/05/17 05:25 Eos # (Auto) 0.1 K/uL (0.0-0.7) 10/05/17 05:25 Baso # (Auto) 0.2 K/uL (0.0-0.2) 10/05/17 05:25 Neutrophils % (Manual) 93 % (42-75) H 10/05/17 05:25 Band Neutrophils % 1 % (0-2) 10/02/17 04:45 Lymphocytes % (Manual) 5 % (20-50) L 10/05/17 05:25 Monocytes % (Manual) 2 % (0-10) 10/05/17 05:25 Myelocytes % 1 % (0-0) H 10/02/17 04:45 Nucleated RBC % 7 % (0-0) H 10/05/17 05:25 Platelet Estimate Markedly decreased (NORMAL) L 10/05/17 05:25 Large Platelets Present 10/05/17 05:25 Giant Platelets Present 09/28/17 11:28 Hypochromasia (manual) Slight 10/05/17 05:25 Poikilocytosis (manual Slight 10/05/17 05:25 Anisocytosis (manual) Slight 10/05/17 05:25 Microcytosis (manual) Slight 10/05/17 05:25 Macrocytosis (manual) Slight 10/05/17 05:25 Spherocytes Moderate 10/05/17 05:25 Target Cells Slight 10/02/17 04:45 Ovalocytes Slight 10/02/17 04:45 [place] Cells Slight 10/02/17 04:45 Schistocytes Slight 10/02/17 04:45 PT 13.8 Seconds (9.8-13.1) H 10/04/17 04:40 INR 1.2 (0.9-1.2) 10/04/17 04:40 APTT 28.7 Seconds (25.6-37.1) 09/29/17 04:25 pCO2 42 mm/Hg (35-45) 09/29/17 05:49 pO2 69 mm/Hg (80-100) L 09/29/17 05:49 HCO3 21.0 mmol/L (21-28) 09/29/17 05:49 ABG pH 7.31 (7.35-7.45) L 09/29/17 05:49 ABG Total CO2 22.4 mmol/L (22-28) 09/29/17 05:49 ABG O2 Saturation 95.4 % (95-98) 09/29/17 05:49 ABG O2 Content 11.9 ML/dL (15-23) L 09/29/17 05:49 ABG Base Excess -4.9 mmol/L (-2.0-3.0) L 09/29/17 05:49 ABG Hemoglobin 9.1 g/dL (11.7-17.4) L 09/29/17 05:49 ABG Carboxyhemoglobin 2.0 % (0.5-1.5) H 09/29/17 05:49 POC ABG HHb (Measured) 4.4 % (0.0-5.0) 09/29/17 05:49 ABG Methemoglobin 1.6 % (0.0-3.0) 09/29/17 05:49 ABG O2 Capacity 12.5 mL/dL (16-24) L 09/29/17 05:49 Gio Test Yes 09/29/17 05:49 A-a O2 Difference 107.0 mm/Hg 09/29/17 05:49 Hgb O2 Saturation 92.0 % (95.0-98.0) L 09/29/17 05:49 FiO2 32.0 % 09/29/17 05:49 Crit Value Called To Dr natalya downey 09/29/17 05:49 Crit Value Called By Claudy 09/29/17 05:49 Crit Value Read Back Y 09/29/17 05:49 Blood Gas Notified Time 601 09/29/17 05:49 Sodium 143 mmol/l (132-148) 10/07/17 06:45 Potassium 4.6 MMOL/L (3.6-5.0) 10/07/17 06:45 Chloride 108 mmol/L (98-107) H 10/07/17 06:45 Carbon Dioxide 25 mmol/L (22-30) 10/07/17 06:45 Anion Gap 15 (10-20) 10/07/17 06:45 BUN 52 mg/dl (7-17) H 10/07/17 06:45 Creatinine 1.2 mg/dl (0.7-1.2) 10/07/17 06:45 Est GFR ( Amer) 55 10/07/17 06:45 Est GFR (Non-Af Amer) 45 10/07/17 06:45 POC Glucose (mg/dL) 201 mg/dL (65-110) H 10/04/17 21:04 Random Glucose 139 mg/dL (65-105) H 10/07/17 06:45 Calcium 8.8 mg/dL (8.4-10.2) 10/07/17 06:45 Total Bilirubin 1.5 mg/dl (0.2-1.3) H 10/05/17 05:25 Direct Bilirubin 1.8 mg/ml (0.0-0.4) H 09/28/17 18:01 GGT 293 U/L (8-78) H 09/28/17 18:01 AST 98 U/L (14-36) H 10/05/17 05:25 ALT 239 U/L (9-52) H 10/05/17 05:25 Alkaline Phosphatase 216 U/L (38-126) H 10/05/17 05:25 Ammonia 25 umo/L (11-51) 09/28/17 18:01 Troponin I 0.0870 ng/mL (0.00-0.120) 09/28/17 11:28 Total Protein 7.0 G/DL (6.3-8.2) 10/05/17 05:25 Albumin 3.7 g/dL (3.5-5.0) 10/05/17 05:25 Globulin 3.2 gm/dL (2.2-3.9) 10/05/17 05:25 Albumin/Globulin Ratio 1.2 (1.0-2.1) 10/05/17 05:25 Lipase 358 U/L (23-300) H 09/28/17 11:28 Procalcitonin 0.21 NG/ML (0.19-0.49) 10/05/17 05:25 Urine Color Lisa (YELLOW) 09/28/17 14:55 Urine Clarity Cloudy (Clear) 09/28/17 14:55 Urine pH 5.0 (5.0-8.0) 09/28/17 14:55 Ur Specific [place] 1.019 (1.003-1.030) 09/28/17 14:55 Urine Protein 100 mg/dL (NEGATIVE) 09/28/17 14:55 Urine Glucose (UA) Neg mg/dL (Normal) 09/28/17 14:55 Urine Ketones Negative mg/dL (NEGATIVE) 09/28/17 14:55 Urine Blood Negative (NEGATIVE) 09/28/17 14:55 Urine Nitrate Negative (NEGATIVE) 09/28/17 14:55 Urine Bilirubin Negative (NEGATIVE) 09/28/17 14:55 Urine Urobilinogen 0.2-1.0 mg/dL (0.2-1.0) 09/28/17 14:55 Ur Leukocyte Esterase Small Marcelo/uL (Negative) 09/28/17 14:55 Urine RBC (Auto) 4 /hpf (0-3) H 09/28/17 14:55 Urine Microscopic WBC 10 /hpf (0-5) H 09/28/17 14:55 Ur Squamous Epith Cells 14 /hpf (0-5) H 09/28/17 14:55 Hyaline Casts 6-10 /hpf (0-2) H 09/28/17 14:55 Stool Occult Blood Negative (NEGATIVE) 09/30/17 09:00 IgG 1340.2 mg/dL (700.0-1600.0) 09/29/17 10:34 JC Nuclear Membr Pat Negative (Negative) 09/29/17 10:34 Anti-Mitochondrial Ab Negative (Negative) 09/29/17 10:34 Smooth Muscle Ab Titer 1:20 Titer (< 1:20) H 09/29/17 10:34 Anti-Smooth Muscle Ab Positive (Negative) H 09/29/17 10:34 Liver/Kid Microsomes Ab <=20.0 U (<=20.0) 09/29/17 10:34 Hepatitis A IgM Ab Negative (NEGATIVE) 09/29/17 10:34 Hep Bs Antigen Negative (NEGATIVE) 09/29/17 10:34 Hep B Core IgM Ab Negative (NEGATIVE) 09/29/17 10:34 Hepatitis Be Antibody Non-reactive (Non-reactive) 09/29/17 10:34 Hepatitis Be Antigen Non-reactive (Non-reactive) 09/29/17 10:34 Hepatitis C Antibody Negative (NEGATIVE) 09/29/17 10:34 Blood Type B POSITIVE 09/28/17 13:05 Antibody Screen Negative 09/28/17 13:05 BBK History Checked Patient has bt 09/28/17 13:05 - Hospital Course Hospital Course: 62F well known to our service with past medical history of COPD, OLIVIA, severe PAH, SLE, RA, s/p splenectomy , chronic thrombocytopenia, hx CVA, CAD with PCI, hx DVT with IVC filter recently discharged 3 days prior to readmission after being admitted for abdominal pain , patient came back bec of abd pain and vomiting. Patient states she does not have much abdominal pain, however she has had worsening, persistent, moderate nausea associated with nbnb emesis as well as some scant dark stools. She is also very dyspneic and has decreased BS. Patient was found to be in acute on chronic renal failure, and has elevated LFTs. Patient was bradycardic in 45-50 BPM range, with lightheadedness and generalized malaise. She was admitted to ICU for close monitoring . Abd Sono: Contracted gallbladder. No cholelithiasis. CT of the abd :1. Lack of contrast agents limits evaluation. No overt pattern of cholecystitis. Gallbladder appears partially contracted compared to the prior exam when it was more significantly more distended. 2. Mild increase in pelvic ascites. Trace perihepatic ascites extending into right pericolic gutter of uncertain origin. This obscures evaluation of the appendix. 3. Prior splenectomy or congenital absence again evident. MRCP: Suboptimal study due to patient's motion. No evidence of biliary obstruction or choledocholithiasis. Partially distended gallbladder surrounding with pericholecystic fluid and infiltration. No evidence of cholelithiasis. Prior splenectomy. . Small ascites and small bilateral pleural effusions. Today patient doing well. Hospital course per problems below. Patient participated withPT well over the weekend and was set up for [facility]. Patient and patient sister refused today and would now like to go home. Stable for discharge home with follow up with PCP. 1. Abdominal Pain with Acute Liver Failure ? etiology- as per GI - abn LFTS poss due to Ischemic Hepatitis vs. Cardiac - MRCP: distended GB with pericholecystic fluid - Hepatitis panel: negative, IgG: normal - GI consulted, Surgery consulted- per Surgery , no surgical intervention -Pt's abd pain resolved , LFTS trending down - cont IV Zosyn - course completed. 2. Bradycardia prob sec to BB cont to monitor rhythm - d/c Toprol -EKG bradycardia, T wave flattening and inversions low voltage, prolonged QTc -45-50 BPM on admission, HR now normal 3.Acute COPD exacerbation continue IV Solumedrol and duonebs, decrease Solumedrol to 40mg q 8 cont Bipap q hs and 3-4 liters NC q am -Pulm consult - Dr Thomas 4. Dark Stool , H/H stable, unlikely Melena pt has history of multiple GIB- had dark stool at home continue Protonix 40mg q12 Occult blood negative mild coagulopathy 2/2 hepatic insufficiency? hold ASA and Plavix for now GI consulted 5. Hyperkalemia sec to CKD no peaked T waves on EKG received Kayexalate 6. CKD Stage III monitor BMP Crea stable 7. SLE/RA Hold on Plaquenil due to abn LFT - on IV Steroids 8. Coagulopathy ? sec to the Liver Dis monitor no signs of bleeding 9. Thrombocytopenia , chronic as per pt shehad low platelets and had Splenectomy due to RA no bleeding- will monitor GI following pt 10 Rash on Chest poss Contact Dermatitis cont Lidex oitment - start Claritin, Singulair DVT proph - no anticoag due to coagulopathy and thrombocytopenia Discharge Exam - Head Exam Head Exam: NORMAL INSPECTION, NORMOCEPHALIC - Eye Exam Eye Exam: EOMI, Normal appearance - ENT Exam ENT Exam: Mucous Membranes Moist, Normal Exam - Respiratory Exam Respiratory Exam: Clear to PA & Lateral, NORMAL BREATHING PATTERN - Cardiovascular Exam Cardiovascular Exam: RRR, +S1, +S2 - GI/Abdominal Exam GI & Abdominal Exam: Normal Bowel Sounds, Soft - Neurological Exam Neurological exam: Alert, Oriented x3 - Psychiatric Exam Psychiatric exam: Normal Affect, Normal Mood - Skin Skin Exam: Dry, Warm Discharge Plan - Follow Up Plan Condition: FAIR Disposition: HOME/ ROUTINE Instructions: Hyperkalemia (DC), Exacerbation of COPD (DC), Weakness (ED) Additional Instructions: hacer mi con ashley primario dentro de 1 semana Referrals: Geena Rivers MD [Medical Doctor] - Sai Thomas MD [Staff Provider] - Deniz Albright MD [Family Provider] -
[2017-10-08 15:47] VITALS: BP 134/82; RESP 18; TEMP 98.2; O2SAT 96
== END 2017-10-08 19:19 | disposition home or self-care (01) | DRG 557 ==
LOC: H.ER 11:12 → H.ERHOLD 13:01 → H.ICU/CCU 15:47 → H.MEDSURG1 10-04 22:05
PROVIDERS: ADMIT Student in an Organized Health Care Education/Training Program; ATTEND Student in an Organized Health Care Education/Training Program
PROC: 5A09557 Assistance with Respiratory Ventilation, Greater than 96 Consecutive Hours, Continuous Positive Airway Pressure (ICD-10-PCS; principal; 2017-09-28)
DX: K72.00 Acute and subacute hepatic failure without coma (principal); N17.9 Acute kidney failure, unspecified; M32.9 Systemic lupus erythematosus, unspecified; E87.5 Hyperkalemia; F03.90 Unspecified dementia, unspecified severity, without behavioral disturbance, psychotic disturbance, mood disturbance, and anxiety; D68.4 Acquired coagulation factor deficiency; J44.1 Chronic obstructive pulmonary disease with (acute) exacerbation; E86.0 Dehydration; I13.0 Hypertensive heart and chronic kidney disease with heart failure and stage 1 through stage 4 chronic kidney disease, or unspecified chronic kidney disease; I50.9 Heart failure, unspecified; N18.3 Chronic kidney disease, stage 3 (moderate); D69.59 Other secondary thrombocytopenia; G47.33 Obstructive sleep apnea (adult) (pediatric); I27.20 Pulmonary hypertension, unspecified; M06.9 Rheumatoid arthritis, unspecified; I25.10 Atherosclerotic heart disease of native coronary artery without angina pectoris; Z95.5 Presence of coronary angioplasty implant and graft; Z86.718 Personal history of other venous thrombosis and embolism; I69.354 Hemiplegia and hemiparesis following cerebral infarction affecting left non-dominant side; E78.5 Hyperlipidemia, unspecified; M81.0 Age-related osteoporosis without current pathological fracture; G89.29 Other chronic pain; K29.70 Gastritis, unspecified, without bleeding; E78.00 Pure hypercholesterolemia, unspecified; F32.9 Major depressive disorder, single episode, unspecified; E80.6 Other disorders of bilirubin metabolism; F40.240 Claustrophobia; Z87.891 Personal history of nicotine dependence; D63.8 Anemia in other chronic diseases classified elsewhere; R00.1 Bradycardia, unspecified; T44.7X5A Adverse effect of beta-adrenoreceptor antagonists, initial encounter; G93.41 Metabolic encephalopathy; L25.9 Unspecified contact dermatitis, unspecified cause

== ENCOUNTER 2017-10-10 15:26 | Observation (INO) | payer MEDICAID ==
[2017-10-10 15:26] VITALS: BMI 35.2
--- NOTE | 2017-10-10 15:48 | ED PDOC ---
HPI: SOB/CHF/COPD Time Seen by Provider: 10/10/17 15:37 Chief Complaint (Nursing): Shortness Of Breath History Per: Patient Onset/Duration Of Symptoms: Days (2) Current Symptoms Are (Timing): Still Present Exacerbating Factor(s): Exertion, Laying Flat, Coughing Current Respiratory Medications: See Home Med List Severity: Moderate Associated Symptoms: Fever. denies: Productive Cough, Leg/Calf Pain Additional Complaint(s): SOB assoc with fever and generalized swelling x 2 days. Recently ks'ed from hospital for CHF. Denies chest pain. Has been coughing but nonproductive. Denies calf pain or swelling. Past Medical History Vital Signs: Last Vital Signs Temp 98.2 F 10/11/17 12:39 Pulse 62 10/11/17 12:39 Resp 18 10/11/17 12:39 BP 111/60 10/11/17 12:39 Pulse Ox 99 10/11/17 14:01 - Medical History PMH: Anemia, Anxiety, Arthritis, Asthma, Back Problems (chronic back pain), CAD , Cardia Arrhythmia, CHF, COPD, CVA (x3 with left weakness), Depression, Diverticulitis, Gastritis, Gall Bladder Disease, HTN, Hypercholesterolemia, Osteoporosis, Peripheral Edema, Rheumatoid Arthritis, Sleep Apnea, TIA Denies: Bipolar Disorder, HIV, Pneumonia, Post Traumatic Stress Disorder, Chronic Kidney Disease, Schizophrenia, Seizures (denies) - Surgical History Surgical History: Appendectomy, Coronary Stent ([facility] and [facility] [place]), (x2) Denies: Cholecystectomy - Family History Family History: States: Unknown Family Hx - Immunization History Hx Influenza Vaccination: Yes - Home Medications Home Medications: Ambulatory Orders Medication Instructions Recorded Nitroglycerin 0.4 mg SL Q5MIN PRN #30 tab.subl 07/28/17 Ciclopirox/Ure/Camph/Menth/Euc 1 appl TP DAILY 08/18/17 [Ciclopirox 8% Treatment Kit] Cyanocobalamin (Vitamin B-12) 1 each NS WE 08/18/17 [Nascobal] Ropinirole HCl 1 mg PO HS 08/18/17 Aspirin 81 mg PO DAILY #30 tab.chew 09/25/17 Clopidogrel [Plavix] 75 mg PO DAILY #30 tab 09/25/17 Escitalopram [Lexapro] 10 mg PO DAILY #30 tab 09/25/17 Famotidine [Heartburn Prevention] 20 mg PO Q12 #60 tablet 09/25/17 Folic Acid 1 mg PO DAILY #30 tab 09/25/17 Hydroxychloroquine Sulfate 200 mg PO Q12H #60 tablet 09/25/17 [Plaquenil] Metoprolol Succinate XL [Toprol XL] 25 mg PO DAILY #30 tab 09/25/17 Mirtazapine [Remeron] 30 mg PO HS #30 tab 09/25/17 Polyethylene Glycol/Polyvinyl 2 drop OU Q6 PRN #1 bottle 09/25/17 [Artificial Tears] hydrOXYzine HCl [Atarax] 10 mg PO TID #90 tab 09/25/17 Atorvastatin [Lipitor] 10 mg PO HS 09/28/17 Mupirocin 2% Ointment [Bactroban 1 appl TOP BID 09/28/17 Ointment] Pantoprazole [Protonix EC Tab] 40 mg PO DAILY PRN 09/28/17 Promethazine/Codeine 10 ml PO Q8 PRN 09/28/17 [Phenergan/Codeine Oral Syrup] Loratadine [Claritin] 10 mg PO DAILY tab 10/08/17 Meloxicam [Mobic] 7.5 mg PO DAILY 10/10/17 - Allergies Allergies/Adverse Reactions: Allergies Allergy/AdvReac Type Severity Reaction Status Date / Time No Known Allergies Allergy Verified 10/10/17 15:27 Review of Systems ROS Statement: Except As Marked, All Systems Reviewed And Found Negative Constitutional: Positive for: Fever Respiratory: Positive for: Cough, Shortness of Breath Musculoskeletal: Negative for: Leg Pain Physical Exam - Reviewed Nursing Documentation Reviewed: Yes Vital Signs Reviewed: Yes - Physical Exam Appears: Positive for: Non-toxic, No Acute Distress Head Exam: Positive for: ATRAUMATIC, NORMAL INSPECTION, NORMOCEPHALIC Skin: Positive for: Normal Color, Warm, DRY Eye Exam: Positive for: EOMI, Normal appearance, PERRL ENT: Positive for: Normal ENT Inspection Neck: Positive for: Normal, Painless ROM Cardiovascular/Chest: Positive for: Regular Rate, Rhythm Respiratory: Positive for: Decreased Breath Sounds, Rhonchi. Negative for: Wheezing, Respiratory Distress Gastrointestinal/Abdominal: Positive for: Normal Exam, Soft Back: Positive for: Normal Inspection Extremity: Positive for: Swelling (Upper ext bilat). Negative for: Calf Tenderness Neurologic/Psych: Positive for: Alert, Oriented - Laboratory Results Result Diagrams: 10/10/17 17:53 10/11/17 05:33 - ECG O2 Sat by Pulse Oximetry: 91 Disposition - Clinical Impression Clinical Impression: CHF (congestive heart failure) - Patient ED Disposition Is Patient to be Admitted: Transfer of Care - Disposition Disposition: Transfer of Care Disposition Time: 17:00 Condition: STABLE Patient Signed Over To: Kane Pablo
--- NOTE | 2017-10-10 16:59 | ED PDOC ---
- Laboratory Results Result Diagrams: 10/10/17 17:53 10/11/17 05:33 - ECG O2 Sat by Pulse Oximetry: 99 Medical Decision Making Medical Decision Makin:00 -Patient endorsed to provider pending work up and admission for hospitalist. 1899 --Patient will be endorsed to Dr. Marques, pending lab results. Last blood collection became hemolyzed and required to be redrawn. Blood sent to lab at this time. --Patient is most likely to be admitted once lab results are in. Scribe Attestation: Documented by Jeny Costa, acting as a scribe for Kane Pablo MD. Provider Scribe Attestation: All medical record entries made by the Scribe were at my direction and personally dictated by me. I have reviewed the chart and agree that the record accurately reflects my personal performance of the history, physical exam, medical decision making, and the department course for this patient. I have also personally directed, reviewed, and agree with the discharge instructions and disposition. Disposition - Clinical Impression Clinical Impression: CHF (congestive heart failure) - POA Present On Arrival: None - Disposition Disposition: Transfer of Care Disposition Time: 19:00 Condition: STABLE Patient Signed Over To: Celestino Marques
--- NOTE | 2017-10-10 17:37 | RAD ---
Date of service: 10/10/2017 HISTORY: Cough. COMPARISON: 09/28/2017. FINDINGS: LUNGS: No active pulmonary disease. PLEURA: No significant pleural effusion identified, no pneumothorax apparent. CARDIOVASCULAR: Cardiomegaly. No evidence of acute, significant cardiovascular disease. OSSEOUS STRUCTURES: No significant abnormalities. VISUALIZED UPPER ABDOMEN: Normal. OTHER FINDINGS: None. IMPRESSION: No active disease. No significant interval change compared to the prior examination(s).
[2017-10-10 19:19] LABS: SQUAMOUS EPITHIAL < 1 /hpf (0-5); URINE BACTERIA RARE (<OCC); URINE BILIRUBIN NEGATIVE (NEGATIVE); URINE BLOOD NEGATIVE (NEGATIVE); URINE CLARITY CLEAR (Clear); URINE COLOR YELLOW (YELLOW); URINE GLUCOSE (UA) NEG (Normal); URINE HYALINE CAST 0-2 /hpf (0-2); URINE LEUKOCYTE ESTERASE NEG Leu/uL (Negative); URINE PROTEIN NEGATIVE (NEGATIVE); URINE UROBILINOGEN 0.2-1.0 mg/dL (0.2-1.0)
[2017-10-10 19:19] LABS: BASO # 0.2 K/uL (0.0-0.2); BASO % 1.5 % (0.0-2.0); EOS # 0.1 K/uL (0.0-0.7); EOS % 0.5 % (0.0-4.0); HEMOGLOBIN 9.3 g/dL (12.0-16.0); LYMPH # 4.7 K/uL (1.0-4.3); LYMPH % 36.7 % (20.0-40.0); MEAN CELL VOLUME 89.5 fl (81.0-99.0); MEAN CORPUSCULAR HEMOGLOBIN 26.9 pg (27.0-31.0); MEAN CORPUSCULAR HGB CONC 30.1 g/dL (33.0-37.0); MEAN PLATELET VOLUME 11.3 fl (7.2-11.7); MONO # 0.6 K/uL (0.0-0.8); MONO % 4.7 % (0.0-10.0); NEUT # 7.2 K/uL (1.8-7.0); NEUT % 56.6 % (50.0-75.0); NRBC % 0.4 % (0.0-0.0); RBC 3.44 Mil/uL (3.80-5.20); RED CELL DISTRIBUTION WIDTH 25.6 % (11.5-14.5); WHITE BLOOD COUNT 12.7 K/uL (4.8-10.8)
--- NOTE | 2017-10-10 19:28 | ED PDOC ---
- Laboratory Results Result Diagrams: 10/10/17 17:53 10/10/17 19:00 - ECG O2 Sat by Pulse Oximetry: 99 Medical Decision Making Medical Decision Making: Time: 1899 --Patient is endorsed to provider from Dr. Pablo, pending lab results. Time: 2017 --Labs reviewed: mild elevation of WBC. [place] derangement [place] PROBNP [place] [id number]. --Patient to be placed in OBS for CHF. --Given patient is febrile, IV Rocephin and Zithromax is ordered for possible underlying pneumonia. --Discussed case with Dr. Jimenez, hospitalist. Scribe Attestation: Documented by Jeny Costa, acting as a scribe for Celestino Marques MD. Provider Scribe Attestation: All medical record entries made by the Scribe were at my direction and personally dictated by me. I have reviewed the chart and agree that the record accurately reflects my personal performance of the history, physical exam, medical decision making, and the department course for this patient. I have also personally directed, reviewed, and agree with the discharge instructions and disposition. Disposition - Clinical Impression Clinical Impression: CHF (congestive heart failure) - POA Present On Arrival: None - Disposition Disposition: Routine/Home Disposition Time: 21:00 Condition: STABLE
[2017-10-10 19:34] LABS: B-TYPE NATRIURETIC PEPTIDE 11000 pg/ml (0-900)
[2017-10-10 19:38] LABS: ALB/GLOB RATIO 1.2 (1.0-2.1); ALBUMIN 3.3 g/dL (3.5-5.0); ALT/SGPT 137 U/L (9-52); AST/SGOT 78 U/L (14-36); BLOOD UREA NITROGEN 39 mg/dl (7-17); CALCIUM 8.7 mg/dL (8.4-10.2); GFR AFRICAN-AMERICAN > 60; GFR NON-AFRICAN AMERICAN 56
[2017-10-10] MEDS ORDERED: Azithromycin 500 MG in Sodium Chloride 0.9% 250 ML IVPB STA (21:40)
[2017-10-10] MEDS ORDERED: Pantoprazole 40 mg EC Tab PO PRN (22:01)
[2017-10-10] MEDS ORDERED: Artificial Tears Opht Soln OU PRN (22:01)
[2017-10-10] MEDS ORDERED: Promethazine/Cod 6.25mg-10mg/5ml Syr UD PO PRN (22:01)
[2017-10-10] MEDS ORDERED: Sodium Chloride 3% for Inhalation 4 ML VIAL.NEB IH PRN (22:27)
[2017-10-10] MEDS ORDERED: cefTRIAXone (Rocephin) 1 gm Inj ONE (23:45)
[2017-10-11] MEDS ORDERED: Azithromycin 500 MG IV IVPB ONE (00:01)
--- NOTE | 2017-10-11 00:50 | CP.PCM.HP ---
History of Present Illness - History of Present Illness History of Present Illness: 62F well known to our service with past medical history of COPD, OLIVIA, severe PAH, SLE, RA, s/p splenectomy , chronic thrombocytopenia, hx CVA, CAD with PCI, hx DVT with IVC filter recently discharged on 10/08/17 after being admitted for abdominal pain and acute liver failure (etiology thought to be ischemic hepatitis vs cardiac), now presenting to the ED earlier today from home with the complaint of acute on chronic shortness of breath. The patient relates that the shortness of breath began earlier today accompanied by noticeable increase in generalized edema for 2 days. The patient denies any chest pain but does admit to having a nonproductive cough. In the ED, she was found to have a fever of 102, WBC elevation of 12.7. CXR was read as negative, however with no other obvious source of infection, will treat as pneumonia given that patient is at high risk. In addition, patient [place] [address] , consistent with acute on chronic heart failure. Patient denies chest pain, nausea, vomiting, diarrhea, headache. All of the patient's and family's questions were answered at the bedside. ROS: Per HPI all other systems rviewed and negative PMD: Dr. Albright [employer] Fe[employer]: Dr. 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, HTN, Sleep apnea, asthma/COPD, dyslipidemia rheumatoid arthritis, SLE, osteoporosis , thrombocytopenia Surgeries: Carpal tunnel surgery, C- sections x 2, bunion removal, splenectomy Medications: see med rec Family history: Mother had HTN, DM and CABG, Father had CVA HTN and DM Social history: Lives in [place], does not smoke, does not drink, does not use any alcohol, used to work in [employer] Allergies NKDA Present on Admission - Present on Admission Any Indicators Present on Admission: No Past Patient History - Infectious Disease Hx of Infectious Diseases: None - Tetanus Immunizations Tetanus Immunization: Unknown - Past Medical History & Family History Past Medical History?: Yes - Past Social History Smoking Status: Former Smoker - CARDIAC Hx Cardia Arrhythmia: Yes Hx Congestive Heart Failure: Yes Hx Hypercholesterolemia: Yes Hx Hypertension: Yes Hx Peripheral Edema: Yes - PULMONARY Hx Asthma: Yes Hx Chronic Obstructive Pulmonary Disease (COPD): Yes Hx Pneumonia: No Hx Sleep Apnea: Yes - NEUROLOGICAL Hx Seizures: No (denies) Hx Transient Ischemic Attacks (TIA): Yes - HEENT Hx HEENT Problems: Yes Hx Cataracts: Yes - RENAL Hx Chronic Kidney Disease: No - ENDOCRINE/METABOLIC Hx Endocrine Disorders: No Hx Diabetes Mellitus Type 1: No Hx Diabetes Mellitus Type 2: No - HEMATOLOGICAL/ONCOLOGICAL Hx Anemia: Yes Hx Human Immunodeficiency Virus (HIV): No - INTEGUMENTARY Hx Dermatological Problems: No - MUSCULOSKELETAL/RHEUMATOLOGICAL Hx Arthritis: Yes Hx Osteoporosis: Yes Hx Rheumatoid Arthritis: Yes - GASTROINTESTINAL Hx Diverticulitis: Yes Hx Gall Bladder Disease: Yes Hx Gastritis: Yes - GENITOURINARY/GYNECOLOGICAL Hx Genitourinary Disorders: Yes Hx Incontinence: No - PSYCHIATRIC Hx Anxiety: Yes Hx Bipolar Disorder: No Hx Depression: Yes Hx Post Traumatic Stress Disorder: No Hx Schizophrenia: No Hx Substance Use: No - SURGICAL HISTORY Hx Appendectomy: Yes Hx Cholecystectomy: No Hx Coronary Stent: Yes ([facility] [place]) - ANESTHESIA Hx Anesthesia: Yes Hx Anesthesia Reactions: No Hx Malignant Hyperthermia: No Meds Allergies/Adverse Reactions: Allergies Allergy/AdvReac Type Severity Reaction Status Date / Time No Known Allergies Allergy Verified 10/10/17 15:27 Results - Vital Signs Recent Vital Signs: Last Vital Signs Temp 99.5 F 10/10/17 23:34 Pulse 72 10/10/17 23:34 Resp 16 10/10/17 23:34 BP 109/60 10/10/17 23:34 Pulse Ox 96 10/10/17 23:34 - Labs Result Diagrams: 10/10/17 17:53 10/10/17 19:00 Labs: Laboratory Results - last 24 hr 10/10/17 10/10/17 10/10/17 17:53 18:46 19:00 WBC 12.7 H RBC 3.44 L Hgb 9.3 L Hct 30.8 L MCV 89.5 MCH 26.9 L MCHC 30.1 L RDW 25.6 H Plt Count 77 L D MPV 11.3 Neut % (Auto) 56.6 Lymph % (Auto) 36.7 [place] % (Auto) 4.7 Eos % (Auto) 0.5 Baso % (Auto) 1.5 Neut # (Auto) 7.2 H Lymph # (Auto) 4.7 H [place] # (Auto) 0.6 Eos # (Auto) 0.1 Baso # (Auto) 0.2 Sodium 142 Potassium 4.8 Chloride 110 H Carbon Dioxide 25 Anion Gap 12 BUN 39 H Creatinine 1.0 Est GFR ( Amer) > 60 Est GFR (Non-Af Amer) 56 Random Glucose 92 Calcium 8.7 Total Bilirubin 1.6 H AST 78 H D ALT 137 H D Alkaline Phosphatase 164 H D NT-Pro-B Natriuret Pep 42034 H Total Protein 6.0 L Albumin 3.3 L Globulin 2.7 Albumin/Globulin Ratio 1.2 Urine Color Yellow Urine Clarity Clear Urine pH 6.0 Ur Specific [place] 1.010 Urine Protein Negative Urine Glucose (UA) Neg Urine Ketones Negative Urine Blood Negative Urine Nitrate Negative Urine Bilirubin Negative Urine Urobilinogen 0.2-1.0 Ur Leukocyte Esterase Neg Urine RBC (Auto) 1 Urine Microscopic WBC 2 Ur Squamous Epith Cells < 1 Urine Bacteria Rare Hyaline Casts 0-2 Assessment & Plan - Assessment and Plan (Free Text) Plan: 62F well known to our service with past medical history of COPD, OLIVIA, severe PAH, SLE, RA, s/p splenectomy , chronic thrombocytopenia, hx CVA, CAD with PCI, hx DVT with IVC filter recently discharged on 10/08/17 after being admitted for abdominal pain and acute liver failure (etiology thought to be ischemic hepatitis vs cardiac), now presenting to the ED earlier today from home with the complaint of acute on chronic shortness of breath. The patient relates that the shortness of breath began earlier today accompanied by noticeable increase in generalized edema for 2 days. The patient denies any chest pain but does admit to having a nonproductive cough. In the ED, she was found to have a fever of 102, WBC elevation of 12.7. CXR was read as negative, however with no other obvious source of infection, will treat as pneumonia given that patient is at high risk. In addition, patient [place] [address] , consistent with acute on chronic heart failure. 1) Fever of unknown origin, pneumonia - Place on tele/obs - Azithromycin/Rocephin - Tylenol PRN for fever - Procalcitonin - Repeat CBC, BMP in AM 2) Acute on chronic pulmonary hypertension, valvular heart disease - Lasix 40 mg IV was given in the ED with good output of urine - 2 g Na diet - At baseline now from respiratory standpoint. 3) Recent history of GI bleed - Hg stable at 9.3 - No further report of melena or bloody stool - No anticoagulation - Monitor 4) Thrombocytopenia, chronic - improved since discharge on 10/07 - monitor CBC 5) CKD stage III - Monitor BMP - Creatinine stable 6) SLE/RA - Continue home medications DVT prophylaxis - SCDs
[2017-10-11 06:01] LABS: PROTHROMBIN TIME 11.5 Seconds (9.8-13.1)
[2017-10-11 06:06] LABS: CALCIUM 8.4 mg/dL (8.4-10.2)
[2017-10-11] MEDS ORDERED: MENTH TP SCH (09:00)
[2017-10-11] MEDS ORDERED: EUC TP SCH (09:00)
[2017-10-11] MEDS ORDERED: APPL TP SCH (09:00)
[2017-10-11] MEDS ORDERED: CAMPH TP SCH (09:00)
[2017-10-11] MEDS ORDERED: [UNRECOGNIZED DRUG - OTHER] TP SCH (09:00)
[2017-10-11] MEDS ORDERED: CICLOPIROX TP SCH (09:00)
[2017-10-11] MEDS: Pantoprazole 40 mg EC Tab PO SCH (09:25)
[2017-10-11] MEDS: Metoprolol Succinate 25 mg XL Tab PO SCH (09:26)
[2017-10-11] MEDS: Azithromycin 500 MG in Sodium Chloride 0.9% 250 ML IVPB SCH (09:27)
--- NOTE | 2017-10-11 15:09 | CARD ---
APPROVED REPORT Date of service: 10/10/2017 EKG Measurement Heart [id number] <Conclusion> Normal sinus rhythm Nonspecific T wave abnormality Abnormal ECG
[2017-10-11] MEDS: Neomycin/Polymyxin/Bacitracin OINT 0.5OZ TP SCH (18:01)
[2017-10-11] MEDS ORDERED: ROPINIROLE HCL 1 MG PO SCH (22:00)
[2017-10-12 05:46] LABS: BLOOD UREA NITROGEN 35 mg/dl (7-17); CALCIUM 8.7 mg/dL (8.4-10.2); GFR AFRICAN-AMERICAN > 60; GFR NON-AFRICAN AMERICAN 56
[2017-10-12] MEDS: Metoprolol Succinate 25 mg XL Tab PO SCH (09:45)
[2017-10-12] MEDS: Neomycin/Polymyxin/Bacitracin OINT 0.5OZ TP SCH ×2 (09:46→17:14)
[2017-10-12] MEDS: Pantoprazole 40 mg EC Tab PO SCH (09:46)
[2017-10-12] MEDS: Azithromycin 500 MG in Sodium Chloride 0.9% 250 ML IVPB SCH (09:58)
--- NOTE | 2017-10-12 11:18 | CP.PCM.DIS ---
Provider - Provider Date of Admission: 10/10/17 20:48 Attending physician: Srinivasa Jimenez DO Time Spent in preparation of Discharge (in minutes): 30 Hospital Course - Lab Results Lab Results: Micro Results 10/10/17 19:15 Urine,Clean Catch Urine Culture - Final No Growth (<1,000 CFU/ML) 10/10/17 17:35 Blood-Venous Blood Culture - Preliminary NO GROWTH AFTER 24 HOURS Most Recent Lab Values WBC 12.7 K/uL (4.8-10.8) H 10/10/17 17:53 RBC 3.44 Mil/uL (3.80-5.20) L 10/10/17 17:53 Hgb 9.3 g/dL (12.0-16.0) L 10/10/17 17:53 Hct 30.8 % (34.0-47.0) L 10/10/17 17:53 MCV 89.5 fl (81.0-99.0) 10/10/17 17:53 MCH 26.9 pg (27.0-31.0) L 10/10/17 17:53 MCHC 30.1 g/dL (33.0-37.0) L 10/10/17 17:53 RDW 25.6 % (11.5-14.5) H 10/10/17 17:53 Plt Count 77 K/uL (130-400) L D 10/10/17 17:53 MPV 11.3 fl (7.2-11.7) 10/10/17 17:53 Neut % (Auto) 56.6 % (50.0-75.0) 10/10/17 17:53 Lymph % (Auto) 36.7 % (20.0-40.0) 10/10/17 17:53 [place] % (Auto) 4.7 % (0.0-10.0) 10/10/17 17:53 Eos % (Auto) 0.5 % (0.0-4.0) 10/10/17 17:53 Baso % (Auto) 1.5 % (0.0-2.0) 10/10/17 17:53 Neut # (Auto) 7.2 K/uL (1.8-7.0) H 10/10/17 17:53 Lymph # (Auto) 4.7 K/uL (1.0-4.3) H 10/10/17 17:53 [place] # (Auto) 0.6 K/uL (0.0-0.8) 10/10/17 17:53 Eos # (Auto) 0.1 K/uL (0.0-0.7) 10/10/17 17:53 Baso # (Auto) 0.2 K/uL (0.0-0.2) 10/10/17 17:53 PT 11.5 Seconds (9.8-13.1) 10/11/17 05:33 INR 1.0 (0.9-1.2) 10/11/17 05:33 Sodium 144 mmol/l (132-148) 10/12/17 05:00 Potassium 4.1 MMOL/L (3.6-5.0) 10/12/17 05:00 Chloride 107 mmol/L (98-107) 10/12/17 05:00 Carbon Dioxide 30 mmol/L (22-30) 10/12/17 05:00 Anion Gap 11 (10-20) 10/12/17 05:00 BUN 35 mg/dl (7-17) H 10/12/17 05:00 Creatinine 1.0 mg/dl (0.7-1.2) 10/12/17 05:00 Est GFR ( Amer) > 60 10/12/17 05:00 Est GFR (Non-Af Amer) 56 10/12/17 05:00 Random Glucose 78 mg/dL (65-105) 10/12/17 05:00 Calcium 8.7 mg/dL (8.4-10.2) 10/12/17 05:00 Total Bilirubin 1.6 mg/dl (0.2-1.3) H 10/10/17 19:00 AST 78 U/L (14-36) H D 10/10/17 19:00 ALT 137 U/L (9-52) H D 10/10/17 19:00 Alkaline Phosphatase 164 U/L (38-126) H D 10/10/17 19:00 Troponin I 0.1150 ng/mL (0.00-0.120) 10/11/17 16:25 NT-Pro-B Natriuret Pep 13613 pg/ml (0-900) H 10/10/17 19:00 Total Protein 6.0 G/DL (6.3-8.2) L 10/10/17 19:00 Albumin 3.3 g/dL (3.5-5.0) L 10/10/17 19:00 Globulin 2.7 gm/dL (2.2-3.9) 10/10/17 19:00 Albumin/Globulin Ratio 1.2 (1.0-2.1) 10/10/17 19:00 Urine Color Yellow (YELLOW) 10/10/17 18:46 Urine Clarity Clear (Clear) 10/10/17 18:46 Urine pH 6.0 (5.0-8.0) 07 18:46 Ur Specific [place] 1.010 (1.003-1.030) 10/10/17 18:46 Urine Protein Negative mg/dL (NEGATIVE) 10/10/17 18:46 Urine Glucose (UA) Neg mg/dL (Normal) 10/10/17 18:46 Urine Ketones Negative mg/dL (NEGATIVE) 10/10/17 18:46 Urine Blood Negative (NEGATIVE) 18 18:46 Urine Nitrate Negative (NEGATIVE) 18 18:46 Urine Bilirubin Negative (NEGATIVE) 18 18:46 Urine Urobilinogen 0.2-1.0 mg/dL (0.2-1.0) 0718 18:46 Ur Leukocyte Esterase Neg [place]/uL (Negative) 18 18:46 Urine RBC (Auto) 1 /hpf (0-3) 10/10/17 18:46 Urine Microscopic WBC 2 /hpf (0-5) 18 18:46 Ur Squamous Epith Cells < 1 /hpf (0-5) 18 18:46 Urine Bacteria Rare (<OCC) 18 18:46 Hyaline Casts 0-2 /hpf (0-2) 18 18:46 - Hospital Course Hospital Course: 62F well known to our service with past medical history of COPD, OLIVIA, severe PAH, SLE, RA, s/p splenectomy , chronic thrombocytopenia, hx CVA, CAD with PCI, hx DVT with IVC filter recently discharged on 10/08/17 after being admitted for abdominal pain and acute liver failure (etiology thought to be ischemic hepatitis vs cardiac), now presenting to the ED earlier today from home with the complaint of acute on chronic shortness of breath. The patient relates that the shortness of breath began earlier today accompanied by noticeable increase in generalized edema for 2 days. The patient denies any chest pain but does admit to having a nonproductive cough. In the ED, she was found to have a fever of 102, WBC elevation of 12.7. CXR was read as negative, however with no other obvious source of infection, will treat as pneumonia given that patient is at high risk. In addition, [place] [address], consistent with acute on chronic heart failure. Patient tolerated diuresis well. Afebrile, no wbc, no sx of pneumonia. Patient dyspnea improved. Will continue outpatient abx for pneumonia for total 7 days for high risk. Patient to be discharged to [facility] for further PT and higher level of care, [facility]. 1) Fever of unknown origin, pneumonia - Place on tele/obs - Azithromycin/Rocephin, changed to Omnicef for 5 more days - Tylenol PRN for fever - Procalcitonin - Repeat CBC, BMP in AM 2) Acute on chronic pulmonary hypertension, valvular heart disease - Lasix 40 mg IV was given in the ED with good output of urine - 2 g Na diet - At baseline now from respiratory standpoint. 3) Recent history of GI bleed - Hg stable at 9.3 - No further report of melena or bloody stool - No anticoagulation - Monitor 4) Thrombocytopenia, chronic - improved since discharge on 10/07 - monitor CBC 5) CKD stage III - Monitor BMP - Creatinine stable 6) SLE/RA - Continue home medications DVT prophylaxis - SCDs Discharge Exam - Head Exam Head Exam: ATRAUMATIC, NORMAL INSPECTION, NORMOCEPHALIC - Eye Exam Eye Exam: EOMI, Normal appearance, PERRL Pupil Exam: NORMAL ACCOMODATION - ENT Exam ENT Exam: Mucous Membranes Moist, Normal Oropharynx - Respiratory Exam Respiratory Exam: Decreased Breath Sounds, Clear to PA & Lateral, NORMAL BREATHING PATTERN - Cardiovascular Exam Cardiovascular Exam: RRR, +S1, +S2 - GI/Abdominal Exam GI & Abdominal Exam: Normal Bowel Sounds, Soft. absent: Organomegaly, Tenderness - Extremities Exam Extremities exam: normal capillary refill, pedal pulses present - Back Exam Back exam: absent: CVA tenderness (L), CVA tenderness (R) - Neurological Exam Neurological exam: Alert, Oriented x3 - Psychiatric Exam Psychiatric exam: Normal Affect, Normal Mood - Skin Skin Exam: Dry, Normal Color Discharge Plan - Discharge Medications Prescriptions: Cefdinir [Omnicef] 300 mg PO BID #10 cap - Follow Up Plan Condition: STABLE Disposition: TRANSF TO SNF Instructions: Heart Failure (DC), Heart Failure (GEN), Pacemaker (DC), Pacemaker (GEN), Pulmonary Edema (DC), Pulmonary Edema (GEN), Ascites (DC), Ascites (GEN)
[2017-10-12 12:21] VITALS: O2SAT 97
[2017-10-12] MEDS ORDERED: Artificial Tears Opht Soln OU PRN ×2 (12:59→14:15)
[2017-10-12] MEDS ORDERED: Naphazoline/Pheniramine Opht SOLN OD PRN (14:15)
[2017-10-12 15:58] VITALS: BP 91/57; PULSE 76; RESP 17; TEMP 98.6
== END 2017-10-12 18:00 ==
LOC: H.ER 15:26 → H.ERHOLD 20:48 → H.TEL 10-11 00:30
PROVIDERS: ADMIT Internal Medicine; ATTEND Internal Medicine
DX: J18.9 Pneumonia, unspecified organism (principal); I13.0 Hypertensive heart and chronic kidney disease with heart failure and stage 1 through stage 4 chronic kidney disease, or unspecified chronic kidney disease; N18.3 Chronic kidney disease, stage 3 (moderate); I27.20 Pulmonary hypertension, unspecified; I50.33 Acute on chronic diastolic (congestive) heart failure; J44.0 Chronic obstructive pulmonary disease with (acute) lower respiratory infection; I25.10 Atherosclerotic heart disease of native coronary artery without angina pectoris; M32.9 Systemic lupus erythematosus, unspecified; G47.33 Obstructive sleep apnea (adult) (pediatric); M06.9 Rheumatoid arthritis, unspecified; D69.6 Thrombocytopenia, unspecified; M81.0 Age-related osteoporosis without current pathological fracture; E78.5 Hyperlipidemia, unspecified; E78.00 Pure hypercholesterolemia, unspecified; Z95.5 Presence of coronary angioplasty implant and graft; Z90.81 Acquired absence of spleen; I69.354 Hemiplegia and hemiparesis following cerebral infarction affecting left non-dominant side; I69.328 Other speech and language deficits following cerebral infarction; F41.9 Anxiety disorder, unspecified; M19.90 Unspecified osteoarthritis, unspecified site; Z66 Do not resuscitate; Z86.718 Personal history of other venous thrombosis and embolism; Z87.891 Personal history of nicotine dependence; Z79.02 Long term (current) use of antithrombotics/antiplatelets; Z79.82 Long term (current) use of aspirin
CPT/HCPCS: 36415; 71045; 80048; 80053; 81003; 83880; 84484; 85025; 85610; 87040; 87086; 93005; 96374; 97116; 97162; 99285; G0378; G8978; G8979; J0456; J0696; J1940; J7050; Q0177